=== PATIENT | female | born 1955 | race Caucasian/White ===

== ENCOUNTER 2016-09-05 23:43 | Inpatient (IN) | payer MEDICARE, OTHER ==
[2016-09-06 00:14] LABS: Basophils % (A) 0 %; CH 29.9; CHCM 33.7; Eosinophils % (A) 0 %; HCT 36.2 % (34.0-46.0); HDW 2.16; HGB 12.3 gm/dL (11.4-16.0); Luc % (Auto) 2; Lymphocytes # (A) 0.4 k/uL (1.0-4.8); Lymphocytes % (A) 3 %; MCH 30.3 pg (25.0-35.0); Mean Platelet Volume 6.8; Monocytes # (A) 0.6 k/uL (0-1.0); Monocytes % (A) 5 %; Neutrophils % (A) 89 %; RBC 4.07 m/uL (3.80-5.40); RDW 13.3 % (11.5-15.5); WBC 12.4 k/uL (3.8-10.6); WBC (Perox) 12.79
[2016-09-06 00:23] LABS: Anion Gap 10 mmol/L; Blood Urea Nitrogen 14 mg/dL (7-17); Carbon Dioxide 23 mmol/L (22-30); Chloride 99 mmol/L (98-107); Glucose 145 mg/dL (74-99); Non-African American GFR(MDRD) 57 (>60 ml/min/1.73 sqM); Potassium 4.2 mmol/L (3.5-5.1); Sodium 132 mmol/L (137-145)
[2016-09-06] MEDS ORDERED: ACETAMINOPHEN IV (For NPO) 1,000 MG in EMPTY BAG 1 BAG IVPB STA (00:27)
[2016-09-06] MEDS ORDERED: SODIUM CHLORIDE 0.9% 1,000 ML IV STA (00:28)
[2016-09-06] MEDS ORDERED: KETOROLAC 30 MG/ML 1 ML VIAL IVP STA (00:29)
[2016-09-06 00:32] LABS: ALT 43 U/L (9-52); AST 45 U/L (14-36); Alkaline Phosphatase 103 U/L (38-126); Total Bilirubin 0.5 mg/dL (0.2-1.3); Total Protein 6.1 g/dL (6.3-8.2)
[2016-09-06 00:41] LABS: INR 1.1 (<1.1); Prothrombin Time 11.2 sec (9.0-12.0)
[2016-09-06 00:51] LABS: Partial Thromboplastin Time 21.5 sec (22.0-30.0)
[2016-09-06 01:04] LABS: Glucose,Whole Blood 149 mg/dL (75-99)
--- NOTE | 2016-09-06 01:09 | ED ---
Seizure HPI - General Chief Complaint: Seizure Stated Complaint: Seizure Time Seen by Provider: 09/05/16 23:45 Source: EMS, old records reviewed Mode of arrival: EMS Limitations: altered mental status, physical limitation - History of Present Illness Initial Comments: Patient's 61-year-old woman brought here by EMS to be evaluated after she had a seizure at her residence. The patient is not able to give any history, and at this point history is from the caregiver. The patient had what sounds like a tonic-clonic seizure. She was also seen at the [facility] earlier today for another seizure. Patient reportedly diagnosed with urinary tract infection at that time. MD Complaint: seizure -: minutes(s) Description of Episode: loss of consciousness, tonic-clonic movement -: second(s) Witnessed: yes - by bystander Seizure History: known seizure disorder Place: home Possible Precipitating Event: none Associated Symptoms: denies other symptoms - Related Data Home Medications Medication Instructions Recorded Confirmed Acetaminophen [Tylenol] 2 tab PO Q6H 02/13/14 02/13/14 Aspirin 325 mg PO DAILY 02/13/14 02/13/14 Benazepril [Lotensin] 10 mg PO DAILY 02/13/14 02/13/14 Chlorhexidine Gluconate [Peridex] 15 ml PO HS 02/13/14 02/13/14 Clotamazole 1 applicate TOPICAL 02/13/14 02/13/14 Diazepam [Diastat] 1 each RECTAL DIRECTED PRN 02/13/14 02/13/14 Digoxin [Lanoxin] 250 mcg PO DAILY 02/13/14 02/13/14 Fludrocortisone [Florinef] 0.1 mg PO DAILY 02/13/14 02/13/14 Folic Acid 1 mg PO DAILY 02/13/14 02/13/14 LORazepam [Ativan] 2 tab PO DIRECTED PRN 02/13/14 02/13/14 Lacosamide [Vimpat] 200 mg PO BID 02/13/14 02/13/14 Meclizine [Antivert] 12.5 mg PO BID 02/13/14 02/13/14 Melatonin 3 mg PO HS 02/13/14 02/13/14 Multivitamins, Thera [Multivitamin] 1 each PO DAILY 02/13/14 02/13/14 OLANZapine [ZyPREXA] 5 mg PO HS 02/13/14 02/13/14 OXcarbazepine [Trileptal] 300 mg PO BID 02/13/14 02/13/14 OXcarbazepine [Trileptal] 600 mg PO HS 02/13/14 02/13/14 Omeprazole [PriLOSEC] 20 mg PO AC-BRKFST 02/13/14 02/13/14 Polyethylene Glycol 3350 [Miralax] 17 gm PO DAILY 02/13/14 02/13/14 Sertraline [Zoloft] 150 mg PO DAILY 02/13/14 02/13/14 Vaseline 1 applicate TOPICAL HS 02/13/14 02/13/14 Verapamil HCl [Verapamil ER] 240 mg PO DAILY 02/13/14 02/13/14 Ziprasidone [Geodon] 80 mg PO BID 02/13/14 02/13/14 lamoTRIgine [LaMICtal] 100 mg PO DAILY 02/13/14 02/13/14 lamoTRIgine [LaMICtal] 200 mg PO BID 02/13/14 02/13/14 Allergies Allergy/AdvReac Type Severity Reaction Status Date / Time No Known Allergies Allergy Verified 02/13/14 03:36 Review of Systems ROS Statement: Those systems with pertinent positive or pertinent negative responses have been documented in the HPI. ROS Other: All systems not noted in ROS Statement are negative. Limitations: ROS unobtainable due to patients medical condition Past Medical History Past Medical History: Seizure Disorder Additional Past Medical History / Comment(s): Unable to obtain hx from pt. History of Any Multi-Drug Resistant Organisms: None Reported Past Surgical History: No Surgical Hx Reported Past Psychological History: Unable to Obtain Smoking Status: Never smoker Past Alcohol Use History: None Reported Past Drug Use History: None Reported General Exam Limitations: altered mental status, physical limitation General appearance: alert, in no apparent distress Head exam: Present: atraumatic, normocephalic Eye exam: Present: normal appearance, PERRL, EOMI. Absent: scleral icterus, conjunctival injection, nystagmus ENT exam: Present: normal oropharynx Neck exam: Present: normal inspection. Absent: tenderness, meningismus Respiratory exam: Present: normal lung sounds bilaterally. Absent: respiratory distress, wheezes, rales, rhonchi, stridor Cardiovascular Exam: Present: normal rhythm, tachycardia, normal heart sounds. Absent: systolic murmur, diastolic murmur, rubs, gallop GI/Abdominal exam: Present: soft. Absent: distended, tenderness, guarding, rebound Extremities exam: Present: normal inspection, normal capillary refill. Absent: pedal edema, calf tenderness Neurological exam: Present: alert, other (Patient is following simple one step commands, without any evident focalizing deficits. She does appear postictal when not able to fully comply with the neurologic exam.) Skin exam: Present: warm, dry, intact, normal color. Absent: rash Course Vital Signs 09/05/16 09/06/16 23:45 01:24 Temperature 104 F H 99.0 F Pulse Rate 111 H 99 Respiratory 20 24 Rate Blood Pressure 147/71 120/58 O2 Sat by Pulse 96 96 Oximetry Medical Decision Making - Lab Data Result diagrams: 09/05/16 23:45 09/05/16 23:45 Lab Results 09/05/16 09/05/16 09/05/16 Range/Units 23:45 23:45 23:45 WBC 12.4 H (3.8-10.6) k/uL RBC 4.07 (3.80-5.40) m/uL Hgb 12.3 (11.4-16.0) gm/dL Hct 36.2 (34.0-46.0) % MCV 89.0 (80.0-100.0) fL MCH 30.3 (25.0-35.0) pg MCHC 34.0 (31.0-37.0) g/dL RDW 13.3 (11.5-15.5) % Plt Count 178 (150-450) k/uL Neutrophils % 89 % Lymphocytes % 3 % Monocytes % 5 % Eosinophils % 0 % Basophils % 0 % Neutrophils # 11.0 H (1.3-7.7) k/uL Lymphocytes # 0.4 L (1.0-4.8) k/uL Monocytes # 0.6 (0-1.0) k/uL Eosinophils # 0.0 (0-0.7) k/uL Basophils # 0.0 (0-0.2) k/uL PT (9.0-12.0) sec INR (<1.1) APTT (22.0-30.0) sec Sodium 132 L (137-145) mmol/L Potassium 4.2 (3.5-5.1) mmol/L Chloride 99 (98-107) mmol/L Carbon Dioxide 23 (22-30) mmol/L Anion Gap 10 mmol/L BUN 14 (7-17) mg/dL Creatinine 1.00 (0.52-1.04) mg/dL Est GFR (MDRD) Af Amer >60 (>60 ml/min/1.73 sqM) Est GFR (MDRD) Non-Af 57 (>60 ml/min/1.73 sqM) Glucose 145 H (74-99) mg/dL POC Glucose (mg/dL) (75-99) mg/dL POC Glu Automatic Oven Operator ID Plasma Lactic Acid [place]cad[place] 1.3 (0.7-2.0) mmol/L Calcium 9.0 (8.4-10.2) mg/dL Total Bilirubin 0.5 (0.2-1.3) mg/dL AST 45 H (14-36) U/L ALT 43 (9-52) U/L Alkaline Phosphatase 103 (38-126) U/L Troponin I (0.000-0.034) ng/mL Total Protein 6.1 L (6.3-8.2) g/dL Albumin 3.3 L (3.5-5.0) g/dL Urine Color Urine Appearance (Clear) Urine pH (5.0-8.0) Ur Specific [place] (1.001-1.035) Urine Protein (Negative) Urine Glucose (UA) (Negative) Urine Ketones (Negative) Urine Blood (Negative) Urine Nitrate (Negative) Urine Bilirubin (Negative) Urine Urobilinogen (<2.0) mg/dL Ur Leukocyte Esterase (Negative) Urine RBC (0-5) /hpf Urine WBC (0-5) /hpf Urine Bacteria (None) /hpf Urine Mucus (None) /hpf Influenza Type A RNA (Not Detectd) Influenza Type B (PCR) (Not Detectd) 09/05/16 09/05/16 09/05/16 Range/Units 23:45 23:45 23:45 WBC (3.8-10.6) k/uL RBC (3.80-5.40) m/uL Hgb (11.4-16.0) gm/dL Hct (34.0-46.0) % MCV (80.0-100.0) fL MCH (25.0-35.0) pg MCHC (31.0-37.0) g/dL RDW (11.5-15.5) % Plt Count (150-450) k/uL Neutrophils % % Lymphocytes % % Monocytes % % Eosinophils % % Basophils % % Neutrophils # (1.3-7.7) k/uL Lymphocytes # (1.0-4.8) k/uL Monocytes # (0-1.0) k/uL Eosinophils # (0-0.7) k/uL Basophils # (0-0.2) k/uL PT 11.2 (9.0-12.0) sec INR 1.1 (<1.1) APTT 21.5 L (22.0-30.0) sec Sodium (137-145) mmol/L Potassium (3.5-5.1) mmol/L Chloride (98-107) mmol/L Carbon Dioxide (22-30) mmol/L Anion Gap mmol/L BUN (7-17) mg/dL Creatinine (0.52-1.04) mg/dL Est GFR (MDRD) Af Amer (>60 ml/min/1.73 sqM) Est GFR (MDRD) Non-Af (>60 ml/min/1.73 sqM) Glucose (74-99) mg/dL POC Glucose (mg/dL) (75-99) mg/dL POC Glu Automatic Oven Operator ID Plasma Lactic Acid [place]cad[place] (0.7-2.0) mmol/L Calcium (8.4-10.2) mg/dL Total Bilirubin (0.2-1.3) mg/dL AST (14-36) U/L ALT (9-52) U/L Alkaline Phosphatase (38-126) U/L Troponin I 0.027 (0.000-0.034) ng/mL Total Protein (6.3-8.2) g/dL Albumin (3.5-5.0) g/dL Urine Color Urine Appearance (Clear) Urine pH (5.0-8.0) Ur Specific [place] (1.001-1.035) Urine Protein (Negative) Urine Glucose (UA) (Negative) Urine Ketones (Negative) Urine Blood (Negative) Urine Nitrate (Negative) Urine Bilirubin (Negative) Urine Urobilinogen (<2.0) mg/dL Ur Leukocyte Esterase (Negative) Urine RBC (0-5) /hpf Urine WBC (0-5) /hpf Urine Bacteria (None) /hpf Urine Mucus (None) /hpf Influenza Type A RNA Not Detected (Not Detectd) Influenza Type B (PCR) Not Detected (Not Detectd) 09/06/16 09/06/16 09/06/16 Range/Units 01:01 01:01 01:37 WBC (3.8-10.6) k/uL RBC (3.80-5.40) m/uL Hgb (11.4-16.0) gm/dL Hct (34.0-46.0) % MCV (80.0-100.0) fL MCH (25.0-35.0) pg MCHC (31.0-37.0) g/dL RDW (11.5-15.5) % Plt Count (150-450) k/uL Neutrophils % % Lymphocytes % % Monocytes % % Eosinophils % % Basophils % % Neutrophils # (1.3-7.7) k/uL Lymphocytes # (1.0-4.8) k/uL Monocytes # (0-1.0) k/uL Eosinophils # (0-0.7) k/uL Basophils # (0-0.2) k/uL PT (9.0-12.0) sec INR (<1.1) APTT (22.0-30.0) sec Sodium (137-145) mmol/L Potassium (3.5-5.1) mmol/L Chloride (98-107) mmol/L Carbon Dioxide (22-30) mmol/L Anion Gap mmol/L BUN (7-17) mg/dL Creatinine (0.52-1.04) mg/dL Est GFR (MDRD) Af Amer (>60 ml/min/1.73 sqM) Est GFR (MDRD) Non-Af (>60 ml/min/1.73 sqM) Glucose (74-99) mg/dL POC Glucose (mg/dL) 149 H 149 H (75-99) mg/dL POC Glu Automatic Oven Operator ID Dunsmore, Cecilia Dunsmore, Cecilia Plasma Lactic Acid [place] (0.7-2.0) mmol/L Calcium (8.4-10.2) mg/dL Total Bilirubin (0.2-1.3) mg/dL AST (14-36) U/L ALT (9-52) U/L Alkaline Phosphatase (38-126) U/L Troponin I (0.000-0.034) ng/mL Total Protein (6.3-8.2) g/dL Albumin (3.5-5.0) g/dL Urine Color Yellow Urine Appearance Clear (Clear) Urine pH 6.5 (5.0-8.0) Ur Specific [place] 1.006 (1.001-1.035) Urine Protein Trace H (Negative) Urine Glucose (UA) Negative (Negative) Urine Ketones Negative (Negative) Urine Blood Trace H (Negative) Urine Nitrate Negative (Negative) Urine Bilirubin Negative (Negative) Urine Urobilinogen <2.0 (<2.0) mg/dL Ur Leukocyte Esterase Moderate H (Negative) Urine RBC 4 (0-5) /hpf Urine WBC 33 H (0-5) /hpf Urine Bacteria Rare H (None) /hpf Urine Mucus Rare H (None) /hpf Influenza Type A RNA (Not Detectd) Influenza Type B (PCR) (Not Detectd) - EKG Data -: EKG Interpreted by Ar EKG shows normal: sinus rhythm, axis (Normal), intervals (Prolonged QTC at 6 or 14 ms.) Rate: tachycardia (Rate 111 bpm) Interpretation: nonspecific ST-T wave changes Disposition Clinical Impression: Generalized seizure, Pneumonia Disposition: ADMITTED IP TO THIS HOSP Condition: Fair
--- NOTE | 2016-09-06 01:25 | XR ---
EXAM: XR Chest, 1 View. CLINICAL HISTORY: Reason: Pain TECHNIQUE: Frontal view of the chest. COMPARISON: No relevant prior studies available. FINDINGS: Lungs: Left retrocardiac opacity obscuring left hemidiaphragm suggesting left lower lobe infiltrate or atelectasis. Pleural space: No evidence of pleural effusion. No pneumothorax. Heart: Heart size and mediastinal structures are within normal limits. Mediastinum: Unremarkable. Bones/joints: Unremarkable. IMPRESSION: Left lower lobe infiltrate or partial atelectasis. Findings raise possibility of pneumonia. Clinical correlation recommended.
[2016-09-06] MEDS ORDERED: LEVOFLOXACIN 750MG-D5W PMX 750 MG in DEXTROSE/WATER 1 150ML.BAG IVPB STA (01:29)
[2016-09-06 02:08] LABS: Appearance,Urine Clear (Clear); Bacteria,Urine Rare /hpf; Bilirubin,Urine Negative (Negative); Glucose,Urine (UA) Negative (Negative); Ketones,Urine Negative (Negative); Leukocyte Esterase,Urine Moderate (Negative); Mucus,Urine Rare /hpf; Nitrite,Urine Negative (Negative); PH, Urine 6.5 (5.0-8.0); Particle Count 1882; Protein,Urine Trace (Negative); RBC,Urine 4 /hpf (0-5); Specific Gravity,Urine 1.006 (1.001-1.035); UA Billing (MACRO vs. MICRO) MICRO; Urobilinogen,Urine <2.0 mg/dL (<2.0); WBC,Urine 33 /hpf (0-5)
[2016-09-06] MEDS ORDERED: PNEUMONIA PROTOCOL UTILIZED 1 EACH MISC PO PRN (02:46)
[2016-09-06] MEDS ORDERED: LORazepam 0.5 MG TAB PO PRN (02:47)
[2016-09-06] MEDS ORDERED: LORazepam 2 MG/ML SYRINGE IV PRN (02:49)
[2016-09-06] MEDS ORDERED: ACETAMINOPHEN TAB 325 MG TAB PO PRN (03:00)
[2016-09-06] MEDS: SODIUM CHLORIDE 0.9% 1,000 ML IV SCH (04:31)
[2016-09-06 04:42] VITALS: BMI 28.3
--- NOTE | 2016-09-06 08:31 | HP ---
DATE OF ADMISSION: Mrs. Pride is a 61-year-old female patient of Dr. Milian for whom I am covering. Apparently, she suffers from seizure disorder and element of mental deficiency. Apparently cared for at home. She presented earlier today to [facility] with a seizure. Apparently, she gets seizures about once a month and are grand mall. There is a possible urinary tract infection associated with it at that time, based on her work-up and patient was sent back to home to her residence and developed another seizure and was brought back into the emergency room. At that time she had a fever and has been admitted for further evaluation and treatment. Patient's past medical history is positive for the seizure disorder and history of some mental retardation. There is a history of a past episode of atrial fib/flutter. There is also history of hyponatremia and hypertension. Apparently, no history of diabetes or other lung disease. No history of any kidney disease, rheumatic fever, myocardial infarction, CVA. Apparently there is no history of any major surgeries. REVIEW OF SYSTEMS: Apparently otherwise, he has been negative except for the episodes of seizures, one [place] and apparently she did fall at that time. A CAT scan was done at [facility] that reported as negative, but otherwise not aware of any other symptoms prior to the seizures. Medications, we have had some problems according to a sister that knows her. She had given us a list of medications at home. Apparently, she is on: 1. Lorazepam 0.5 mg p.r.n. 2. Melatonin 3 mg at bedtime for sleep. 3. Trileptal 300 mg twice a day and also 2 of the 300 mg tablets which will equal 600 mg at night. 4. GlycoLax p.r.n. 5. Zoloft, apparently she is on 100 mg tablets 1-1/2 daily. 6. Verapamil 240 mg 24-hour tablet once a day. 7. Theragran-M vitamins. 8. She is also on Geodon 800 mg twice a day. There is some history also of schizoaffective disorder. 9. She is also on Tylenol 325 p.r.n. 10. Aspirin 325 mg daily. 11. Lanoxin 0.25 daily. 12. Lamictal, apparently she takes 1/2 of a 200 mg tablet at 7 in the morning and then another 200 mg tablet twice a day for a total of 500 mg daily. Once again, these are prior to her seizures. Apparently, she has been taking her medication. No known allergies. Family history reveals that her father history of lymphoma and atherosclerotic heart disease in his 80s, mother in her 90s of atherosclerotic heart disease. The patient has a sister, 60 years old in good health and her brother also in good health, apparently. On physical examination, this morning. She is arousable. Apparently according to the nurses answering questions with her normal baseline mental status, she does not appear to be in any acute distress. She is lying flat in bed. No respiratory distress. Her vital signs as mentioned on presentation her temperature, they say was 104 axillary and pulse 114. Presently her temperature is down to 98.6 with a pulse of 78, respirations of 20, nonlabored, blood pressure 101/58 and she is 98% saturated on nasal cannula. Her neck is supple. Extraocular movements appear to be intact. No adenopathy, thyromegaly, or bruits detected in the neck. Breasts and pelvic exam has been deferred. Lungs were clear to auscultation. Heart is regular without definitive murmurs. Abdomen is mildly obese but soft, nontender. No organomegaly detected. Extremities revealed no edema. Neurologically, as mentioned she is aroused, appears to be somewhat fatigued, but overall alert to her baseline. Cranial nerves appear to be intact and she does move all extremities. 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 No focal weakness noted. Laboratory testing revealed a white count of 12.4, hemoglobin 12.3 and a platelet count of 178, INR 1.1, sodium 132 with a potassium 4.2, chloride 92, CO2 content of 23. Her GFR is 57 with a BUN of 14, and a creatinine of 1.0. Her glucose on presentation was 145. AST was slightly elevated at 45, but ALT was normal. Alk phos normal at 103, and bili normal at 0.5. Her albumin slightly low at 3.3, troponin normal at 0.027. Urine revealed moderate leukocyte esterase with 33 white cells. Influenza A and B were negative. Her chest x-ray was read as a possibility of a left lower lobe infiltrate or partial atelectasis but no definite pneumonia is seen. Her EKG revealed an accelerated junctional rhythm with some ST-T wave abnormalities. No definite ischemic changes noted. Overall impression is this lady with a history of seizures has recurrent uncontrolled episodes of seizures yesterday, a grand mal in type, associated with a temperature and what appears to be a urinary tract infection. I believe less likely a pneumonic process. Apparently, there is underlying history of mental retardation and psychosis. There is also a history of paroxysmal atrial fib/flutter but not on anticoagulation, apparently due to seizure disorder in the past and apparent history of hypertension. At this point, plans are to monitor the patient, seizure precautions. Have resumed her Lamictal at 200 twice a day and her Trileptal at her home dosage. Will continue to treat her urinary tract infection pending cultures that were also done at [facility] earlier and repeated here. I do not know if she received any antibiotics in between. Will also get a Neurology consult. She did have a CAT scan done at [facility], which did not show any evidence of acute bleed or mass effect. Prognosis guarded. MTDD
[2016-09-06] MEDS ORDERED: MECLIZINE 12.5 MG TAB PO SCH (09:00)
[2016-09-06] MEDS ORDERED: OXcarbazepine 300 MG TAB PO SCH (09:00)
[2016-09-06] MEDS ORDERED: ZIPRASIDONE 80 MG CAP PO SCH (09:00)
[2016-09-06] MEDS ORDERED: lamoTRIgine 100 MG TAB PO SCH (09:00)
[2016-09-06] MEDS ORDERED: LACOSAMIDE 50 MG TABLET PO SCH (09:00)
[2016-09-06] MEDS: ZIPRASIDONE 80 MG CAP PO SCH ×2 (10:28→20:50)
[2016-09-06] MEDS: VERAPAMIL SR 240 MG TABLET.ER PO SCH (10:28)
[2016-09-06] MEDS: POLYETHYLENE GLYCOL 3350 17 GM POWD.PACK PO SCH (10:28)
[2016-09-06] MEDS: PANTOPRAZOLE 40 MG TABLET PO SCH (10:28)
[2016-09-06] MEDS: OXcarbazepine 300 MG TAB PO SCH ×2 (10:28→20:50)
[2016-09-06] MEDS: DIGOXIN 250 MCG TAB PO SCH (10:29)
[2016-09-06] MEDS: ASPIRIN 325 MG TAB PO SCH (10:29)
[2016-09-06] MEDS: SERTRALINE 100 MG TAB PO SCH (10:29)
[2016-09-06] MEDS: LISINOPRIL 10 MG TAB PO SCH (10:29)
[2016-09-06] MEDS: MULTIVITAMINS, THERA 1 EACH TAB PO SCH (10:46)
[2016-09-06] MEDS ORDERED: FOLIC ACID 1 MG TAB PO SCH (12:00)
[2016-09-06] MEDS ORDERED: NON-FORMULARY DRUG (Lamotrigine [Lamictal] 200 MG) PO SCH (14:30)
[2016-09-06] MEDS: lamoTRIgine 100 MG TAB PO SCH ×2 (14:35→20:50)
--- NOTE | 2016-09-06 18:29 | P.CNNES ---
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 She is on Trileptal lorazepam and Lamictal for seizure prophylaxis. She is admitted to the hospital because she had a seizure the patient has been diagnosed also with a UTI he was seen earlier at [facility] as well for seizure and diagnosed with UTI. Patient normally has about 3 partial seizures a month. Apparently patient appears comfortable and has no specific complaints. She denies any headache or dizziness. this seizure currently was a generalized grand mal seizure. Review of Systems ROS unobtainable: due to mental status Past Medical History Past Medical History: Atrial Fibrillation, Hypertension, Pneumonia, Seizure Disorder Additional Past Medical History / Comment(s): Vertigo History of Any Multi-Drug Resistant Organisms: None Reported Past Surgical History: No Surgical Hx Reported Past Psychological History: Schizoaffective Disorder Additional Psychological History / Comment(s): OCD, auditory hallucinations, needs reassurance that she is ok. Smoking Status: Never smoker Past Alcohol Use History: None Reported Past Drug Use History: None Reported - Past Family History Father Family Medical History: Cancer Mother Family Medical History: AFIB, Congestive Heart Failure (CHF) Medications and Allergies Home Medications Medication Instructions Recorded Confirmed Type Acetaminophen [Tylenol] 650 mg PO Q6H PRN 02/13/14 09/06/16 History Aspirin 325 mg PO DAILY 02/13/14 09/06/16 History LORazepam [Ativan] 0.5 mg PO BID PRN 02/13/14 09/06/16 History Melatonin 3 mg PO HS 02/13/14 09/06/16 History Multivitamins, Thera [Multivitamin] 1 tab PO DAILY 02/13/14 09/06/16 History OXcarbazepine [Trileptal] 300 mg PO DAILY 02/13/14 09/06/16 History OXcarbazepine [Trileptal] 600 mg PO HS 02/13/14 09/06/16 History Polyethylene Glycol 3350 [Miralax] 17 gm PO DAILY PRN 02/13/14 09/06/16 History Sertraline [Zoloft] 150 mg PO DAILY 02/13/14 09/06/16 History Verapamil HCl [Verapamil ER] 240 mg PO DAILY 08/13/14 03/06/17 History Ziprasidone [Geodon] 80 mg PO BID 02/13/14 09/06/16 History lamoTRIgine [LaMICtal] 100 mg PO DAILY@0800 02/13/14 09/06/16 History lamoTRIgine [LaMICtal] 200 mg PO BID@1430,2030 02/13/14 09/06/16 History Digoxin [Lanoxin] 125 mcg PO BID 09/06/16 09/06/16 History Allergies Allergy/AdvReac Type Severity Reaction Status Date / Time No Known Allergies Allergy Verified 02/13/14 03:36 Physical Examination - Vital Signs Vital Signs: Vital Signs Temp Pulse Pulse Resp BP BP Pulse Ox 09/06/16 15:00 97.7 F 80 17 92/54 96 09/06/16 07:00 97.6 F 77 18 109/67 98 09/06/16 04:45 78 20 09/06/16 04:15 98.6 F 78 20 101/58 98 09/06/16 03:03 88 22 103/64 97 Intake and Output 09/06/16 09/06/16 09/06/16 06:59 14:59 22:59 Output Total 1 Balance -1 Output: Urine 1 Other: # Voids 1 1 2 Weight 75 kg - Constitutional General appearance: average body habitus - EENT EENT: PERRL - Respiratory Respiratory: lungs clear - Cardiovascular Cardiovascular: regular rate - Integumentary Integumentary: normal - Neurologic She is awake alert and has moderate MR Cranial nerve examination: PERRL, EOMI, VFF, face symmetric, tongue midline Detailed motor examination: grossly full strength in all extremities Results - Laboratory Findings CBC and BMP: 09/05/16 23:45 09/05/16 23:45 Assessment and Plan (1) Generalized seizure Status: Acute Code(s): R56.9 - UNSPECIFIED CONVULSIONS Plan: Patient is a 61-year-old woman with moderate MR and epilepsy who presents to the hospital with recent urosepsis and breakthrough seizures. Recommend trough anticonvulsant levels in a.m. it continue to treat underlying sepsis. We'll check trough Trileptal and Lamictal levels in a.m. apparently patient did have a CAT scan of the brain done at [facility] which was reported negative
[2016-09-06] MEDS: MELATONIN 3 MG TABLET PO SCH (20:50)
[2016-09-06] MEDS ORDERED: OLANZapine 5 MG TAB PO SCH (21:00)
[2016-09-06] MEDS ORDERED: OXCARBAZEPINE 600 MG PO SCH (21:00)
[2016-09-06] MEDS ORDERED: LEVOFLOXACIN 750 MG TAB PO SCH (21:00)
[2016-09-07] MEDS: SODIUM CHLORIDE 0.9% 1,000 ML IV SCH (05:13)
--- NOTE | 2016-09-07 07:23 | P.PN ---
Progress Note - Text The patient is a 61-year-old female who is a patient of Dr. Milian for whom I am covering. The patient had 2 seizures over the weekend and was brought here to the emergency room apparently in a post ictal state. She also has pyuria consistent with a urinary tract infection and presently a blood culture that is positive for gram negatives although final identification is pending at this time. Patient has been seen by neurology. Patient clinically seems to be doing well this morning. She has not had any further seizure activity. She appears to be alert and oriented. There is some history of mental retardation and apparently she lives in a home but I do not know her overall baseline but this morning she is appears to be doing well. Patient denies any headache or pain. She denies any nausea or vomiting. Denies any cough or chills. Vital signs reveal temperature of 99.3 with a pulse of 87 respirations 19. Blood pressure 107/61 and she is 93% saturated on room air. Head and neck exam unremarkable. Lungs and heart clear and regular. No murmurs. Abdomen is soft and nontender. No edema. She does appear to be alert and oriented. In no acute distress. No cranial nerve deficits. Moving all extremities without weakness. Microbiology: Urine culture is pending. Blood Gram stain and culture from September 05 apparently showing gram-negative's. Impressions and plans: Neurology note regarded. Levels of her antiseizure medications per neurology. Continue with Levaquin pending cultures and will repeat cultures presently along with other labs this morning. Further recommendations pending results of above. Consult infectious disease.
[2016-09-07 08:19] LABS: Aty Lym Flag Moderate; Basophils # (A) 0.1 k/uL (0-0.2); Basophils % (A) 1 %; CH 29.2; Eosinophils # (A) 0.1 k/uL (0-0.7); Eosinophils % (A) 1 %; HCT 36.7 % (34.0-46.0); HDW 2.23; Luc # (Auto) 0.87; Luc % (Auto) 10; Lymphocytes # (A) 1.2 k/uL (1.0-4.8); Lymphocytes % (A) 13 %; MCHC 32.8 g/dL (31.0-37.0); MCV 91.7 fL (80.0-100.0); Mean Platelet Volume 7.5; Monocytes # (A) 0.6 k/uL (0-1.0); Monocytes % (A) 6 %; Neutrophils # (A) 6.3 k/uL (1.3-7.7); Neutrophils % (A) 69 %; RDW 13.2 % (11.5-15.5); WBC 9.1 k/uL (3.8-10.6); WBC (Perox) 9.37
[2016-09-07 09:00] LABS: ALT 38 U/L (9-52); AST 34 U/L (14-36); Alkaline Phosphatase 104 U/L (38-126); Anion Gap 11 mmol/L; Blood Urea Nitrogen 15 mg/dL (7-17); Calcium 9.4 mg/dL (8.4-10.2); Carbon Dioxide 23 mmol/L (22-30); Chloride 107 mmol/L (98-107); Glucose 96 mg/dL (74-99); Non-African American GFR(MDRD) 55 (>60 ml/min/1.73 sqM); Potassium 4.7 mmol/L (3.5-5.1); Sodium 141 mmol/L (137-145); Total Bilirubin 0.3 mg/dL (0.2-1.3); Total Protein 5.8 g/dL (6.3-8.2)
[2016-09-07] MEDS ORDERED: LEVOFLOXACIN 500 MG TAB PO SCH (09:00)
--- NOTE | 2016-09-07 09:01 | P.CONS ---
History of Present Illness - Reason for Consult Consult date: 09/07/16 Gram-negative sepsis - History of Present Illness This is a 61-year-old female with past medical history significant for moderate intellectual disability, paroxysmal atrial fibrillation, hypertension, seizure disorder. [place] and had a seizure and staff thought she hit her head. She was transported to [facility] and underwent a CAT scan of the head which was negative and of the C-spine which did show degenerative changes. She was found to have a urinary tract infection with urinalysis showing WBC greater than 25, bacteria greater than 30, blood 1+. Patient was discharged on Macrobid but this was not filled as patient had another seizure and then presented to [facility] emergency center. She was found to have a temperature of 104.0, tachycardia, hypotension, leukocytosis at 12.4. GFR was 57, albumin 3.3, AST 45 , influenza testing a and B were negative. Urinalysis showed protein trace, blood trace, leukoesterase moderate, WBC 33 and bacteria rare. Two blood cultures drawn at the same time are positive for gram-negative rods. Urine culture is in progress. Patient was given 1 dose of ceftriaxone and admitted to the [facility] floor and continued on Levaquin. Patient is able to answer some questions and appears to be answering appropriately. Her main caregiver is also at the bedside and history is being confirmed with her. Patient does state that she has pain when she urinates but unable to determine how long this has been going on. Plan is for patient to return to her own apartment where she has 24-hour care. She does have a cruise to [place] scheduled for September 20 with her sister/guardian and other family members. Her nurse also relates that last evening patient was feeling an aura as she normally would before a seizure. Her nurse gave her oral Ativan and patient did not have seizure activity at that time. Review of Systems All systems: negative Constitutional: Reports fever, Denies chills Eyes: right as per HPI, denies blurred vision, denies pain Ears, nose, mouth and throat: Denies dental pain, Denies dysphagia, Denies headache, Denies mouth pain, Denies sore throat Cardiovascular: Denies chest pain, Denies edema, Denies leg edema, Denies shortness of breath Respiratory: Denies cough, Denies cough with sputum, Denies dyspnea, Denies excessive sputum, Denies hemoptysis, Denies home oxygen Gastrointestinal: Denies abdominal pain, Denies diarrhea, Denies nausea, Denies vomiting Genitourinary: Reports dysuria, Denies hematuria Musculoskeletal: Denies myalgias Integumentary: Denies pruritus, Denies rash Neurological: Denies numbness, Denies weakness Psychiatric: Denies anxiety, Denies depression Endocrine: Denies fatigue, Denies weight change Past Medical History Past Medical History: Atrial Fibrillation, Hypertension, Pneumonia, Seizure Disorder Additional Past Medical History / Comment(s): Vertigo, paroxysmal atrial fibrillation, moderate intellectual disability History of Any Multi-Drug Resistant Organisms: None Reported Past Surgical History: No Surgical Hx Reported Past Psychological History: Schizoaffective Disorder Additional Psychological History / Comment(s): OCD, auditory hallucinations, needs reassurance that she is ok. Smoking Status: Never smoker Past Alcohol Use History: None Reported Additional Past Alcohol Use History / Comment(s): Patient is a lifelong nonsmoker, no illicit drug use, alcohol use. Patient lives in her own apartment with a roommate. They have 24-hour care. There are no pets in the home. No recent travel. Past Drug Use History: None Reported - Past Family History Father Family Medical History: Cancer Mother Family Medical History: AFIB, Congestive Heart Failure (CHF) Medications and Allergies Home Medications Medication Instructions Recorded Confirmed Type Acetaminophen [Tylenol] 650 mg PO Q6H PRN 02/13/14 09/06/16 History LORazepam [Ativan] 0.5 mg PO BID PRN 02/13/14 09/06/16 History Multivitamins, Thera [Multivitamin] 1 tab PO DAILY 02/13/14 09/06/16 History OXcarbazepine [Trileptal] 300 mg PO DAILY 02/13/14 09/06/16 History OXcarbazepine [Trileptal] 600 mg PO HS 02/13/14 09/06/16 History Polyethylene Glycol 3350 [Miralax] 17 gm PO DAILY PRN 02/13/14 09/06/16 History RX: Aspirin 325 mg PO DAILY 02/13/14 09/06/16 History RX: Melatonin 3 mg PO HS 02/13/14 09/06/16 History Sertraline [Zoloft] 150 mg PO DAILY 02/13/14 09/06/16 History Verapamil HCl [Verapamil ER] 240 mg PO DAILY 02/13/14 09/06/16 History Ziprasidone [Geodon] 80 mg PO BID 02/13/14 09/06/16 History lamoTRIgine [LaMICtal] 100 mg PO DAILY@0800 02/13/14 09/06/16 History lamoTRIgine [LaMICtal] 200 mg PO BID@1430,2030 02/13/14 09/06/16 History Digoxin [Lanoxin] 125 mcg PO BID 09/06/16 09/06/16 History Allergies Allergy/AdvReac Type Severity Reaction Status Date / Time No Known Allergies Allergy Verified 02/13/14 03:36 Physical Exam Vitals: Vital Signs Temp Pulse Resp BP BP Pulse Ox 09/07/16 07:00 98.2 F 77 20 113/57 95 09/06/16 22:55 99.3 F 87 19 107/61 93 L 09/06/16 15:00 97.7 F 80 17 92/54 96 Intake and Output 09/06/16 09/07/16 09/07/16 22:59 06:59 14:59 Intake Total 200 Balance 200 Intake: Oral 200 Other: # Voids 2 3 Gen: This is a 61-year-old female. She is in bed and appears to be in no acute distress. No respiratory distress is noted. HEENT: Head is atraumatic, normocephalic. Pupils equal, round. Sclerae is anicteric. Conjunctiva pink. Mucous membranes of the mouth are moist. No thrush noted. No tenderness, edema or masses noted to the scalp. NECK: Supple. No JVD. No lymphadenopathy. No thyromegaly. LUNGS: Clear to auscultation. No wheezes or rhonchi. No intercostal retractions. HEART: Regular rate and rhythm. No murmur. ABDOMEN: Soft. Bowel sounds are present. No masses. No tenderness. No suprapubic tenderness. EXTREMITIES: No pedal edema. No calf tenderness. Dorsalis pedis +2 bilaterally. Onychomycosis bilateral toes NEUROLOGICAL: Patient is awake, alert and oriented x2. Cranial nerves 2 through 12 are grossly intact. Results Results: Laboratory Results WBC 9.1 k/uL (3.8-10.6) 09/07/16 07:44 RBC 4.00 m/uL (3.80-5.40) 09/07/16 07:44 Hgb 12.0 gm/dL (11.4-16.0) 09/07/16 07:44 Hct 36.7 % (34.0-46.0) 09/07/16 07:44 MCV 91.7 fL (80.0-100.0) 09/07/16 07:44 MCH 30.0 pg (25.0-35.0) 09/07/16 07:44 MCHC 32.8 g/dL (31.0-37.0) 09/07/16 07:44 RDW 13.2 % (11.5-15.5) 09/07/16 07:44 Plt Count 182 k/uL (150-450) 09/07/16 07:44 Neutrophils % 69 % 09/07/16 07:44 Lymphocytes % 13 % 09/07/16 07:44 Monocytes % 6 % 09/07/16 07:44 Eosinophils % 1 % 09/07/16 07:44 Basophils % 1 % 09/07/16 07:44 Neutrophils # 6.3 k/uL (1.3-7.7) 09/07/16 07:44 Lymphocytes # 1.2 k/uL (1.0-4.8) 09/07/16 07:44 Monocytes # 0.6 k/uL (0-1.0) 09/07/16 07:44 Eosinophils # 0.1 k/uL (0-0.7) 09/07/16 07:44 Basophils # 0.1 k/uL (0-0.2) 09/07/16 07:44 PT 11.2 sec (9.0-12.0) 09/05/16 23:45 INR 1.1 (<1.1) 09/05/16 23:45 APTT 21.5 sec (22.0-30.0) L 09/05/16 23:45 Sodium 132 mmol/L (137-145) L 09/05/16 23:45 Potassium 4.2 mmol/L (3.5-5.1) 09/05/16 23:45 Chloride 99 mmol/L (98-107) 09/05/16 23:45 Carbon Dioxide 23 mmol/L (22-30) 09/05/16 23:45 Anion Gap 10 mmol/L 09/05/16 23:45 BUN 14 mg/dL (7-17) 09/05/16 23:45 Creatinine 1.00 mg/dL (0.52-1.04) 09/05/16 23:45 Est GFR (MDRD) Af Amer >60 (>60 ml/min/1.73 sqM) 09/05/16 23:45 Est GFR (MDRD) Non-Af 57 (>60 ml/min/1.73 sqM) 09/05/16 23:45 Glucose 145 mg/dL (74-99) H 09/05/16 23:45 POC Glucose (mg/dL) 149 mg/dL (75-99) H 09/06/16 01:01 POC Glu Weaving Instructor ID Cecilia Hernández 09/06/16 01:01 Plasma Lactic Acid Arcadio 1.3 mmol/L (0.7-2.0) 09/05/16 23:45 Calcium 9.0 mg/dL (8.4-10.2) 09/05/16 23:45 Total Bilirubin 0.5 mg/dL (0.2-1.3) 09/05/16 23:45 AST 45 U/L (14-36) H 09/05/16 23:45 ALT 43 U/L (9-52) 09/05/16 23:45 Alkaline Phosphatase 103 U/L (38-126) 09/05/16 23:45 Troponin I 0.027 ng/mL (0.000-0.034) 09/05/16 23:45 Total Protein 6.1 g/dL (6.3-8.2) L 09/05/16 23:45 Albumin 3.3 g/dL (3.5-5.0) L 09/05/16 23:45 Urine Color Yellow 09/06/16 01:37 Urine Appearance Clear (Clear) 09/06/16 01:37 Urine pH 6.5 (5.0-8.0) 09/06/16 01:37 Ur Specific [place] 1.006 (1.001-1.035) 09/06/16 01:37 Urine Protein Trace (Negative) H 09/06/16 01:37 Urine Glucose (UA) Negative (Negative) 09/06/16 01:37 Urine Ketones Negative (Negative) 09/06/16 01:37 Urine Blood Trace (Negative) H 09/06/16 01:37 Urine Nitrate Negative (Negative) 09/06/16 01:37 Urine Bilirubin Negative (Negative) 09/06/16 01:37 Urine Urobilinogen <2.0 mg/dL (<2.0) 09/06/16 01:37 Ur Leukocyte Esterase Moderate (Negative) H 09/06/16 01:37 Urine RBC 4 /hpf (0-5) 09/06/16 01:37 Urine WBC 33 /hpf (0-5) H 09/06/16 01:37 Urine Bacteria Rare /hpf (None) H 09/06/16 01:37 Urine Mucus Rare /hpf (None) H 09/06/16 01:37 Influenza Type A RNA Not Detected (Not Detectd) 09/05/16 23:45 Influenza Type B (PCR) Not Detected (Not Detectd) 09/05/16 23:45 CBC & Chem 7: 09/07/16 07:44 09/07/16 07:44 Assessment and Plan Plan: This is a 61-year-old female who has past medical history for seizure disorder and experienced [place] and was initially seen at [facility] where a CAT scan of the head and neck were negative. She was diagnosed with urinary tract infection and sent home on Macrobid which was not filled. She then presented to [facility] with a second seizure and has been admitted to the [facility] floor. She is currently on Levaquin which will be switched to ceftriaxone. Blood culture is showing gram-negative rods and repeat blood culture has been obtained this morning. Patient presented with gram-negative septicemia and bacteremia due to urinary source. Await further culture reports. Urine culture is in progress. Continue supportive care. Physical therapy will be added. Further recommendations as patient progresses. The above dictated assessment and findings were discussed with Dr. Mckeon. The impression and plan of care have been directed as dictated. Bobbi Curry nurse practitioner acting as scribe for Dr. Mckeon. Time with Patient: Greater than 30
[2016-09-07] MEDS: POLYETHYLENE GLYCOL 3350 17 GM POWD.PACK PO SCH (09:20)
[2016-09-07] MEDS: OXcarbazepine 300 MG TAB PO SCH ×2 (09:20→20:05)
[2016-09-07] MEDS: ZIPRASIDONE 80 MG CAP PO SCH ×2 (09:20→20:05)
[2016-09-07] MEDS: ASPIRIN 325 MG TAB PO SCH (09:20)
[2016-09-07] MEDS: VERAPAMIL SR 240 MG TABLET.ER PO SCH (09:20)
[2016-09-07] MEDS: SERTRALINE 100 MG TAB PO SCH (09:21)
[2016-09-07] MEDS: PANTOPRAZOLE 40 MG TABLET PO SCH (09:21)
[2016-09-07] MEDS: DIGOXIN 250 MCG TAB PO SCH (09:21)
[2016-09-07] MEDS: LISINOPRIL 10 MG TAB PO SCH (09:21)
[2016-09-07] MEDS: MULTIVITAMINS, THERA 1 EACH TAB PO SCH (09:22)
[2016-09-07] MEDS: lamoTRIgine 100 MG TAB PO SCH ×2 (14:38→20:05)
--- NOTE | 2016-09-07 20:01 | P.CON ---
Consult Note - . Consult date: 09/07/16 Assessment/Plan:: This is a 61-year-old female with past medical history significant for moderate intellectual disability, paroxysmal atrial fibrillation, hypertension, seizure disorder. [place] and had a seizure and staff thought she hit her head. She was transported to [facility] and underwent a CAT scan of the head which was negative and of the C-spine which did show degenerative changes. She was found to have a urinary tract infection with urinalysis showing WBC greater than 25, bacteria greater than 30, blood 1+. Patient was discharged on Macrobid but this was not filled as patient had another seizure and then presented to [facility] emergency center. She was found to have a temperature of 104.0, tachycardia, hypotension, leukocytosis at 12.4. GFR was 57, albumin 3.3, AST 45 , influenza testing a and B were negative. Urinalysis showed protein trace, blood trace, leukoesterase moderate, WBC 33 and bacteria rare. Two blood cultures drawn at the same time are positive for gram-negative rods. Urine culture is in progress. Patient was given 1 dose of ceftriaxone and [facility] and continued on Levaquin. Patient is able to answer some questions and appears to be answering appropriately. Her main caregiver is also at the bedside and history is being confirmed with her. Patient does state that she has pain when she urinates but unable to determine how long this has been going on. Plan is for patient to return to her own apartment where she has 24-hour care. She does have a cruise to [place] scheduled for September 20 with her sister/guardian and other family members. Her nurse also relates that last evening patient was feeling an aura as she normally would before a seizure. Her nurse gave her oral Ativan and patient did not have seizure activity at that time. Please see the consult note is dictated by nurse practitioner Mrs. Bobbi Curry. Patient does have evidence of gram-negative sepsis from the urinary system. Final authentication is pending. Ceftriaxone is an excellent choice this point in time pending further data. Patient's and proving this evening. Ate her dinner without difficulties. Once cultures are back we'll have plans for her ongoing treatment. I agree with evaluation, assessment and plan as dictated by nurse practitioner Mrs. Bobbi Curry.
[2016-09-07] MEDS: LORazepam 0.5 MG TAB PO SCH (20:05)
[2016-09-07] MEDS: MELATONIN 3 MG TABLET PO SCH (20:05)
[2016-09-08] MEDS: SODIUM CHLORIDE 0.9% 1,000 ML IV SCH (02:59)
--- NOTE | 2016-09-08 07:57 | P.PN ---
Progress Note - Text The patient is a 61-year-old female Dr. Angels for whom I am covering. The patient was admitted with uncontrolled seizures. Also found to have a urinary tract infection and with positive blood cultures and urine culture for gram- negative rods consistent with sepsis and septicemia associated with systemic inflammatory response syndrome likely lowering her seizure threshold. Patient has been on antibiotics. She is presently on ceftriaxone and has been seen by infectious disease. The patient does have some underlying mental retardation. Apparently lives in a long term. She does respond to verbal and physical stimuli this morning. She does not appear to be in any distress. Vital signs reveal temperature of 98.1 with a pulse of 80 and respirations 14. Blood pressure is 105/64 and she is 95% saturated on room air. Lung and heart exam was clear. Abdomen nontender. No edema. She appears to be moving all extremities without focal deficits and cranial nerve deficits at this time. Laboratory: CBC and basic metabolic panel were unremarkable. White count is down to 9.1. Hemoglobin at 12. Electrolytes are normal. BUN is 15 with creatinine 1.02 given her a GFR of 55. Albumin low at 3.0 Microbiology: Positive once again was positive in the urine and blood for gram-negative bacilli with further identification and sensitivities to follow. Impressions and plans: This point we'll continue present antiseizure and antibiotics as per neurology and infectious disease specialist. Further recommendations pending further clinical response and results of cultures. Also awaiting results of blood levels on her antiseizure medications for any adjustments per neurology.
[2016-09-08] MEDS: POLYETHYLENE GLYCOL 3350 17 GM POWD.PACK PO SCH (09:16)
[2016-09-08] MEDS: PANTOPRAZOLE 40 MG TABLET PO SCH (09:16)
[2016-09-08] MEDS: VERAPAMIL SR 240 MG TABLET.ER PO SCH (09:16)
[2016-09-08] MEDS: LISINOPRIL 10 MG TAB PO SCH (09:16)
[2016-09-08] MEDS: SERTRALINE 100 MG TAB PO SCH (09:16)
[2016-09-08] MEDS: ZIPRASIDONE 80 MG CAP PO SCH ×2 (09:16→20:58)
[2016-09-08] MEDS: LORazepam 0.5 MG TAB PO SCH ×2 (09:17→20:57)
[2016-09-08] MEDS: OXcarbazepine 300 MG TAB PO SCH ×2 (09:18→20:57)
[2016-09-08] MEDS: ASPIRIN 325 MG TAB PO SCH (09:18)
[2016-09-08] MEDS: DIGOXIN 250 MCG TAB PO SCH (09:18)
[2016-09-08] MEDS: lamoTRIgine 100 MG TAB PO SCH ×2 (13:30→20:57)
[2016-09-08] MEDS: MULTIVITAMINS, THERA 1 EACH TAB PO SCH (13:30)
[2016-09-08] MEDS: MELATONIN 3 MG TABLET PO SCH (20:57)
--- NOTE | 2016-09-08 21:20 | P.PN ---
Subjective Principal diagnosis: Gram-negative sepsis This is a 61-year-old female with past medical history significant for moderate intellectual disability, paroxysmal atrial fibrillation, hypertension, seizure disorder. [place] and had a seizure and staff thought she hit her head. She was transported to [facility] and underwent a CAT scan of the head which was negative and of the C-spine which did show degenerative changes. She was found to have a urinary tract infection with urinalysis showing WBC greater than 25, bacteria greater than 30, blood 1+. Patient was discharged on Macrobid but this was not filled as patient had another seizure and then presented to [facility] emergency center. She was found to have a temperature of 104.0, tachycardia, hypotension, leukocytosis at 12.4. GFR was 57, albumin 3.3, AST 45 , influenza testing a and B were negative. Urinalysis showed protein trace, blood trace, leukoesterase moderate, WBC 33 and bacteria rare. Two blood cultures drawn at the same time are positive for gram-negative rods. Urine culture is in progress. Patient was given 1 dose of [facility]ftriaxone [facility] continued on Leva[facility]. Patient is able to answer some questions and appears to be answering appropriately. Her main caregiver is also at the bedside and history is being confirmed with her. Patient does state that she has pain when she urinates but unable to determine how long this has been going on. Plan is for patient to return to her own apartment where she has 24-hour care. She does have a cruise to [place] scheduled for September 20 with her sister/guardian and other family members. Her nurse also relates that last evening patient was feeling an aura as she normally would before a seizure. Her nurse gave her oral Ativan and patient did not have seizure activity at that time. Feeling much better today. Is able to eat her meals. No further seizures are noted. Objective - Vital Signs Vital signs: Vital Signs Temp 97.5 F L 09/08/16 15:00 Pulse 68 09/08/16 16:00 Resp 16 09/08/16 16:00 BP 123/57 09/08/16 15:00 Pulse Ox 95 09/08/16 15:00 Intake & Output 09/08/16 09/08/16 09/09/16 06:59 18:59 06:59 Intake Total 50 Balance 50 Intake: Intake, IV Titration 50 Amount Sodium Chloride 0.9% 1, 0 000 ml @ 20 mls/hr IV . Q24H SUSIE Rx#:[id number] cefTRIAXone 1,000 mg In 50 Sodium Chloride 0.9% 50 ml @ 100 mls/hr IVPB Q12HR SUSIE Rx#:[id number] Other: # Voids 2 2 - Exam Gen: This is a 61-year-old female. She is in bed and appears to be in no acute distress. No respiratory distress is noted. HEENT: Head is atraumatic, normocephalic. Pupils equal, round. Sclerae is anicteric. Conjunctiva pink. Mucous membranes of the mouth are moist. No thrush noted. No tenderness, edema or masses noted to the scalp. NECK: Supple. No JVD. No lymphadenopathy. No thyromegaly. LUNGS: Clear to auscultation. No wheezes or rhonchi. No intercostal retractions. HEART: Regular rate and rhythm. No murmur. ABDOMEN: Soft. Bowel sounds are present. No masses. No tenderness. No suprapubic tenderness. EXTREMITIES: No pedal edema. No calf tenderness. Dorsalis pedis +2 bilaterally. Onychomycosis bilateral toes NEUROLOGICAL: Patient is awake, alert and oriented x2 - Labs CBC & Chem 7: 09/07/16 07:44 09/07/16 07:44 Labs: Microbiology - Last 24 Hours (Table) 09/07/16 07:52 Blood Culture - Preliminary Blood No Growth after 24 hours 09/07/16 07:44 Blood Culture - Preliminary Blood No Growth after 24 hours Laboratory Results WBC 9.1 k/uL (3.8-10.6) 09/07/16 07:44 RBC 4.00 m/uL (3.80-5.40) 09/07/16 07:44 Hgb 12.0 gm/dL (11.4-16.0) 09/07/16 07:44 Hct 36.7 % (34.0-46.0) 09/07/16 07:44 MCV 91.7 fL (80.0-100.0) 09/07/16 07:44 MCH 30.0 pg (25.0-35.0) 09/07/16 07:44 MCHC 32.8 g/dL (31.0-37.0) 09/07/16 07:44 RDW 13.2 % (11.5-15.5) 09/07/16 07:44 Plt Count 182 k/uL (150-450) 09/07/16 07:44 Neutrophils % 69 % 09/07/16 07:44 Lymphocytes % 13 % 09/07/16 07:44 Monocytes % 6 % 09/07/16 07:44 Eosinophils % 1 % 09/07/16 07:44 Basophils % 1 % 09/07/16 07:44 Neutrophils # 6.3 k/uL (1.3-7.7) 09/07/16 07:44 Lymphocytes # 1.2 k/uL (1.0-4.8) 09/07/16 07:44 Monocytes # 0.6 k/uL (0-1.0) 09/07/16 07:44 Eosinophils # 0.1 k/uL (0-0.7) 09/07/16 07:44 Basophils # 0.1 k/uL (0-0.2) 09/07/16 07:44 PT 11.2 sec (9.0-12.0) 09/05/16 23:45 INR 1.1 (<1.1) 09/05/16 23:45 APTT 21.5 sec (22.0-30.0) L 09/05/16 23:45 Sodium 141 mmol/L (137-145) 09/07/16 07:44 Potassium 4.7 mmol/L (3.5-5.1) 09/07/16 07:44 Chloride 107 mmol/L (98-107) 09/07/16 07:44 Carbon Dioxide 23 mmol/L (22-30) 09/07/16 07:44 Anion Gap 11 mmol/L 09/07/16 07:44 BUN 15 mg/dL (7-17) 09/07/16 07:44 Creatinine 1.02 mg/dL (0.52-1.04) 09/07/16 07:44 Est GFR (MDRD) Af Amer >60 (>60 ml/min/1.73 sqM) 09/07/16 07:44 Est GFR (MDRD) Non-Af 55 (>60 ml/min/1.73 sqM) 09/07/16 07:44 Glucose 96 mg/dL (74-99) 09/07/16 07:44 POC Glucose (mg/dL) 149 mg/dL (75-99) H 09/06/16 01:01 POC Glu Blow Molding Machine Operator ID Cecilia Hernández 09/06/16 01:01 Plasma Lactic Acid Arcadio 1.3 mmol/L (0.7-2.0) 09/05/16 23:45 Calcium 9.4 mg/dL (8.4-10.2) 09/07/16 07:44 Total Bilirubin 0.3 mg/dL (0.2-1.3) 09/07/16 07:44 AST 34 U/L (14-36) 09/07/16 07:44 ALT 38 U/L (9-52) 09/07/16 07:44 Alkaline Phosphatase 104 U/L (38-126) 09/07/16 07:44 Troponin I 0.027 ng/mL (0.000-0.034) 09/05/16 23:45 Total Protein 5.8 g/dL (6.3-8.2) L 09/07/16 07:44 Albumin 3.0 g/dL (3.5-5.0) L 09/07/16 07:44 TSH 1.360 mIU/L (0.465-4.680) 09/07/16 07:44 Urine Color Yellow 09/06/16 01:37 Urine Appearance Clear (Clear) 09/06/16 01:37 Urine pH 6.5 (5.0-8.0) 09/06/16 01:37 Ur Specific [place] 1.006 (1.001-1.035) 09/06/16 01:37 Urine Protein Trace (Negative) H 09/06/16 01:37 Urine Glucose (UA) Negative (Negative) 09/06/16 01:37 Urine Ketones Negative (Negative) 09/06/16 01:37 Urine Blood Trace (Negative) H 09/06/16 01:37 Urine Nitrate Negative (Negative) 09/06/16 01:37 Urine Bilirubin Negative (Negative) 09/06/16 01:37 Urine Urobilinogen <2.0 mg/dL (<2.0) 09/06/16 01:37 Ur Leukocyte Esterase Moderate (Negative) H 09/06/16 01:37 Urine RBC 4 /hpf (0-5) 09/06/16 01:37 Urine WBC 33 /hpf (0-5) H 09/06/16 01:37 Urine Bacteria Rare /hpf (None) H 09/06/16 01:37 Urine Mucus Rare /hpf (None) H 09/06/16 01:37 Oxcarbazepine 26.5 ug/mL (10-35) 09/07/16 07:44 Lamotrigine 4.7 ug/mL (2.0-15.0) 09/06/16 19:03 Influenza Type A RNA Not Detected (Not Detectd) 09/05/16 23:45 Influenza Type B (PCR) Not Detected (Not Detectd) 09/05/16 23:45 Microbiology 09/05/16 23:45 Blood Blood Culture Gram Stain - Final 09/05/16 23:45 Blood Blood Culture - Final Serratia liquefaciens 09/06/16 01:37 Urine,Catheterized Urine Culture - Final Serratia marcescens 09/07/16 07:52 Blood Blood Culture - Preliminary No Growth after 24 hours 09/07/16 07:44 Blood Blood Culture - Preliminary No Growth after 24 hours 09/05/16 23:45 Blood Blood Culture - Preliminary Assessment and Plan (1) Gram negative sepsis Status: Acute (2) Serratia infection Status: Acute (3) Urinary tract infection Status: Acute
[2016-09-09 07:41] VITALS: BP 101/60; PULSE 77; RESP 16; TEMP 97.4
--- NOTE | 2016-09-09 07:58 | P.PN ---
Progress Note - Text The patient is a 61-year-old female of Dr. Hernandez's for whom I am covering. Patient presented with uncontrolled seizures. Also found to have a urinary tract infection with sepsis and positive blood cultures that have grown out Serratia species. She is not had any further seizures and has regained her baseline mental status. As she has been seen by Dr. Mckeon from infectious disease and repeat cultures from the blood were negative from September 07. The patient herself is sitting up in bed. She denies any pain. No nausea or vomiting. No further seizures. Vital signs reveal temperature 97.4 with a pulse of 77 respirations 16. Blood pressure 101/60 and she is 93% saturated on room air. Lung and heart exam clear. Abdomen is soft and nontender. No edema. No new focal neurological changes. Level of OxyCarbazepine seen 26.5. Range 10-35. And the Lanotrigine 4.7. Range 2-15. Impressions and plans: At this point plans are to continue with ciprofloxacin 500 mg twice a day for 10 more days to continue her 2 week course from her sepsis from the urinary tract as outpatient. Patient can resume and continue her home dosages on her antiseizure medications. Follow-up with Dr. Hernandez upon his return over the next couple weeks. Discussed with nursing staff and patient today.
[2016-09-09] MEDS: POLYETHYLENE GLYCOL 3350 17 GM POWD.PACK PO SCH (08:42)
[2016-09-09] MEDS: SERTRALINE 100 MG TAB PO SCH (08:42)
[2016-09-09] MEDS: ASPIRIN 325 MG TAB PO SCH (08:42)
[2016-09-09] MEDS: PANTOPRAZOLE 40 MG TABLET PO SCH (08:42)
[2016-09-09] MEDS: ZIPRASIDONE 80 MG CAP PO SCH (08:42)
[2016-09-09] MEDS: MULTIVITAMINS, THERA 1 EACH TAB PO SCH (08:43)
[2016-09-09] MEDS: OXcarbazepine 300 MG TAB PO SCH (08:43)
[2016-09-09] MEDS: DIGOXIN 250 MCG TAB PO SCH (08:43)
[2016-09-09] MEDS: LISINOPRIL 10 MG TAB PO SCH (08:43)
[2016-09-09] MEDS: VERAPAMIL SR 240 MG TABLET.ER PO SCH (08:43)
[2016-09-09] MEDS: LORazepam 0.5 MG TAB PO SCH (08:44)
--- NOTE | 2016-09-09 20:48 | P.PN ---
Subjective Principal diagnosis: Gram-negative sepsis This is a 61-year-old female with past medical history significant for moderate intellectual disability, paroxysmal atrial fibrillation, hypertension, seizure disorder. [place] the [place] and had a seizure and staff thought she hit her head. She was transported to [facility] and underwent a CAT scan of the head which was negative and of the C-spine which did show degenerative changes. She was found to have a urinary tract infection with urinalysis showing WBC greater than 25, bacteria greater than 30, blood 1+. Patient was discharged on Macrobid but this was not filled as patient had another seizure and then presented to [facility] emergency center. She was found to have a temperature of 104.0, tachycardia, hypotension, leukocytosis at 12.4. GFR was 57, albumin 3.3, AST 45 , influenza testing a and B were negative. Urinalysis showed protein trace, blood trace, leukoesterase moderate, WBC 33 and bacteria rare. Two blood cultures drawn at the same time are positive for gram-negative rods. Urine culture is in progress. Patient was given 1 dose of ceftriaxone and [facility] and continued on Levaquin. Patient is able to answer some questions and appears to be answering appropriately. Her main caregiver is also at the bedside and history is being confirmed with her. Patient does state that she has pain when she urinates but unable to determine how long this has been going on. Plan is for patient to return to her own apartment where she has 24-hour care. She does have a cruise to [place] scheduled for September 20 with her sister/ guardian and other family members. Feeling much better today. Is able to eat her meals. No further seizures are noted. Objective - Vital Signs Vital signs: Vital Signs Temp 97.4 F L 09/09/16 07:00 Pulse 77 09/09/16 07:00 Resp 16 09/09/16 08:00 BP 101/60 09/09/16 07:00 Pulse Ox 93 L 09/09/16 07:00 Intake & Output 09/09/16 09/09/16 09/10/16 06:59 18:59 06:59 Intake Total 100 Balance 100 Intake: Intake, IV Titration 100 Amount cefTRIAXone 1,000 mg In 100 Sodium Chloride 0.9% 50 ml @ 100 mls/hr IVPB Q12HR [facility] Rx#:[id number] Other: # Voids 2 1 # Bowel Movements 1 - Exam Gen: This is a 61-year-old female. She is in bed and appears to be in no acute distress. No respiratory distress is noted. HEENT: Head is atraumatic, normocephalic. Pupils equal, round. Sclerae is anicteric. Conjunctiva pink. Mucous membranes of the mouth are moist. No thrush noted. No tenderness, edema or masses noted to the scalp. NECK: Supple. No JVD. No lymphadenopathy. No thyromegaly. LUNGS: Clear to auscultation. No wheezes or rhonchi. No intercostal retractions. HEART: Regular rate and rhythm. No murmur. ABDOMEN: Soft. Bowel sounds are present. No masses. No tenderness. No suprapubic tenderness. EXTREMITIES: No pedal edema. No calf tenderness. Dorsalis pedis +2 bilaterally. Onychomycosis bilateral toes NEUROLOGICAL: Patient is awake, alert and oriented x2 - Labs CBC & Chem 7: 09/07/16 07:44 09/07/16 07:44 Labs: Microbiology - Last 24 Hours (Table) 09/07/16 07:52 Blood Culture - Preliminary Blood No Growth after 48 hours 09/07/16 07:44 Blood Culture - Preliminary Blood No Growth after 48 hours Laboratory Results WBC 9.1 k/uL (3.8-10.6) 09/07/16 07:44 RBC 4.00 m/uL (3.80-5.40) 09/07/16 07:44 Hgb 12.0 gm/dL (11.4-16.0) 09/07/16 07:44 Hct 36.7 % (34.0-46.0) 09/07/16 07:44 MCV 91.7 fL (80.0-100.0) 09/07/16 07:44 MCH 30.0 pg (25.0-35.0) 09/07/16 07:44 MCHC 32.8 g/dL (31.0-37.0) 09/07/16 07:44 RDW 13.2 % (11.5-15.5) 09/07/16 07:44 Plt Count 182 k/uL (150-450) 09/07/16 07:44 Neutrophils % 69 % 09/07/16 07:44 Lymphocytes % 13 % 09/07/16 07:44 Monocytes % 6 % 09/07/16 07:44 Eosinophils % 1 % 09/07/16 07:44 Basophils % 1 % 09/07/16 07:44 Neutrophils # 6.3 k/uL (1.3-7.7) 09/07/16 07:44 Lymphocytes # 1.2 k/uL (1.0-4.8) 09/07/16 07:44 Monocytes # 0.6 k/uL (0-1.0) 09/07/16 07:44 Eosinophils # 0.1 k/uL (0-0.7) 09/07/16 07:44 Basophils # 0.1 k/uL (0-0.2) 09/07/16 07:44 PT 11.2 sec (9.0-12.0) 09/05/16 23:45 INR 1.1 (<1.1) 09/05/16 23:45 APTT 21.5 sec (22.0-30.0) L 09/05/16 23:45 Sodium 141 mmol/L (137-145) 09/07/16 07:44 Potassium 4.7 mmol/L (3.5-5.1) 09/07/16 07:44 Chloride 107 mmol/L (98-107) 09/07/16 07:44 Carbon Dioxide 23 mmol/L (22-30) 09/07/16 07:44 Anion Gap 11 mmol/L 09/07/16 07:44 BUN 15 mg/dL (7-17) 09/07/16 07:44 Creatinine 1.02 mg/dL (0.52-1.04) 09/07/16 07:44 Est GFR (MDRD) Af Amer >60 (>60 ml/min/1.73 sqM) 09/07/16 07:44 Est GFR (MDRD) Non-Af 55 (>60 ml/min/1.73 sqM) 09/07/16 07:44 Glucose 96 mg/dL (74-99) 09/07/16 07:44 POC Glucose (mg/dL) 149 mg/dL (75-99) H 09/06/16 01:01 POC Glu [employer] Equipment Installer ID Cecilia Hernández 09/06/16 01:01 Plasma Lactic Acid Arcadio 1.3 mmol/L (0.7-2.0) 09/05/16 23:45 Calcium 9.4 mg/dL (8.4-10.2) 09/07/16 07:44 Total Bilirubin 0.3 mg/dL (0.2-1.3) 09/07/16 07:44 AST 34 U/L (14-36) 09/07/16 07:44 ALT 38 U/L (9-52) 09/07/16 07:44 Alkaline Phosphatase 104 U/L (38-126) 09/07/16 07:44 Troponin I 0.027 ng/mL (0.000-0.034) 09/05/16 23:45 Total Protein 5.8 g/dL (6.3-8.2) L 09/07/16 07:44 Albumin 3.0 g/dL (3.5-5.0) L 09/07/16 07:44 TSH 1.360 mIU/L (0.465-4.680) 09/07/16 07:44 Urine Color Yellow 09/06/16 01:37 Urine Appearance Clear (Clear) 09/06/16 01:37 Urine pH 6.5 (5.0-8.0) 09/06/16 01:37 Ur Specific [place] 1.006 (1.001-1.035) 09/06/16 01:37 Urine Protein Trace (Negative) H 09/06/16 01:37 Urine Glucose (UA) Negative (Negative) 09/06/16 01:37 Urine Ketones Negative (Negative) 09/06/16 01:37 Urine Blood Trace (Negative) H 09/06/16 01:37 Urine Nitrate Negative (Negative) 09/06/16 01:37 Urine Bilirubin Negative (Negative) 09/06/16 01:37 Urine Urobilinogen <2.0 mg/dL (<2.0) 09/06/16 01:37 Ur Leukocyte Esterase Moderate (Negative) H 09/06/16 01:37 Urine RBC 4 /hpf (0-5) 09/06/16 01:37 Urine WBC 33 /hpf (0-5) H 09/06/16 01:37 Urine Bacteria Rare /hpf (None) H 09/06/16 01:37 Urine Mucus Rare /hpf (None) H 09/06/16 01:37 Oxcarbazepine 26.5 ug/mL (10-35) 09/07/16 07:44 Lamotrigine 4.7 ug/mL (2.0-15.0) 09/06/16 19:03 Influenza Type A RNA Not Detected (Not Detectd) 09/05/16 23:45 Influenza Type B (PCR) Not Detected (Not Detectd) 09/05/16 23:45 Microbiology 09/07/16 07:52 Blood Blood Culture - Preliminary No Growth after 48 hours 09/07/16 07:44 Blood Blood Culture - Preliminary No Growth after 48 hours 09/05/16 23:45 Blood Blood Culture Gram Stain - Final 09/05/16 23:45 Blood Blood Culture - Final Serratia liquefaciens 09/06/16 01:37 Urine,Catheterized Urine Culture - Final Serratia marcescens 09/05/16 23:45 Blood Blood Culture - Preliminary Assessment and Plan (1) Gram negative sepsis Narrative/Plan: 61-year-old woman presents to Hospital from the outside hospital because of concerns to seizure. Because of her current seizure she was admitted. Currently is not having evidence of ongoing recurrent seizures at this time. Overall seems to be quite improved. She does have evidence of marked improvement. There was concerns to quinolone resistant organisms and she was treated with ceftriaxone. She has evidence of Serratia liquefaciens of her urine and her blood. This likely that the underlying sepsis was responsible for her altered mental status. She is improved at this time. She is ready for discharge to home with utilize oral ciprofloxacin 500 mg every 12 hours to complete a 14 day course of therapy for her sepsis from the urinary system. The nursing staff do relate that she has very unique and somewhat inappropriate hygiene habits. After she urinates she wipes her vaginal area many times [id number] which gives many opportunities for contamination. Nursing is tried to educate but patient has limited ability to relearn activity at the moment. We'll not need outpatient intravenous antibiotic therapy. Prescription for ciprofloxacin is sent Status: Acute (2) Serratia infection Status: Acute (3) Urinary tract infection Status: Acute
--- NOTE | 2016-09-10 08:26 | DS ---
DATE OF ADMISSION: 09/06/2016 DATE OF DISCHARGE: 09/09/2016 Mrs. Pride 61-year-old patient, patient of Dr. Oral Hernandez's for whom I was covering. The patient presented with recurrent seizures to the emergency room and mental status changes. She was also found to have pyuria and a urinary tract infection with blood and urine cultures growing out Serratia. She was initially admitted. She was placed initially on ceftriaxone and Levaquin. Consultation obtained with neurology, Dr. García, regarding the seizures and subsequently with Dr. Mckeon from infectious disease as she grew out the gram-negative Serratia in her urine and blood. The patient clinically improved with the antibiotics along with fluids. The patient does have some underlying mental retardation and seemed to return back to her overall baseline and had no further seizures during her hospitalization. Her laboratory values initially revealed a white count of 12.4, hemoglobin 12.3 and a platelet count of 178. Her initial INR was 1.1. Sodium was 132 with potassium 4.2, CO2 content 23. Her BUN is 14, creatinine 1.0 giving her a GFR of 57. Glucose was 145. AST was slightly elevated at 45 with a normal ALT and alk phos and bilirubin both were normal. Albumin slightly low at 3.3. Troponin normal at 0.027. Test for influenza A and B were negative. Chest x-ray there was initial question of a left lower lobe infiltrate, but clinically she did not have any symptoms in that regard. EKG revealed initial junctional rhythm with some ST-T wave abnormalities, but no definite ischemic changes. As mentioned, patient's blood cultures initially revealed Serratia liquefaciens. Her urine grew out Serratia marcescens. Further blood cultures on the seventh that were done showed no growth after 48 hours and it was under recommendation of Dr. Mckeon that she could be discharged with a full course of ciprofloxacin 500 mg twice a day. Other home medications: 1. Acetaminophen 325 mg q.6 hours as needed for pain. 2. Aspirin 325 daily. 3. Lanoxin 0.125, apparently she takes 2 daily. 4. Ativan 0.5 twice a day as needed. 5. Melatonin for sleep 3 mg. 6. Multiple vitamin daily. 7. Trileptal 300 mg tablet in the morning and 600 at bedtime. 8. She takes MiraLAX 17 grams daily. 9. Zoloft 150 mg daily. 10. Verapamil ER 240 mg daily. 11. Geodon 80 mg twice a day. 12. Lamictal 100 mg at 8:00 in the morning, 200 mg another twice a day after that, apparently at 1430 and 2030. She did have blood levels of her antiseizure medications and they were therapeutic. Please refer to notes by Dr. García and Dr. Mckeon. Diet will be as tolerated. She is to return to the retirement where she resides. FINAL DISCHARGE DIAGNOSES BEIN. Acute uncontrolled seizures related to gram-negative septicemia with mental status changes and increased seizure disorder with grand mal seizures related to systemic inflammatory response syndrome and the gram-negative sepsis with Serratia organisms as specified above. 2. The patient does have history of seizure disorder. 3. History of mental retardation. 4. History of paroxysmal atrial flutter in the past. No anticoagulation due to frequent seizures and fall risk. 5. Mild hyponatremia. 6. Acute stage III renal failure secondary to the septicemia, which resolved with treatment of the infection and hydration. Also of note, this patient initially presented to [facility] where a CAT scan there was negative. I discussed the case with the sister. Patient to return to ER if further problems with seizures. EMMETTD
== END 2016-09-09 12:14 | disposition home health service (06) | DRG 872 ==
LOC: EC 23:43 → 4MS4W 09-06 02:43
PROVIDERS: ADMIT Internal Medicine; ATTEND Internal Medicine
DX: A41.53 Sepsis due to Serratia (principal); I95.9 Hypotension, unspecified; N17.9 Acute kidney failure, unspecified; E87.1 Hypo-osmolality and hyponatremia; I48.92 Unspecified atrial flutter; G40.409 Other generalized epilepsy and epileptic syndromes, not intractable, without status epilepticus; N18.3 Chronic kidney disease, stage 3 (moderate); I48.0 Paroxysmal atrial fibrillation; I12.9 Hypertensive chronic kidney disease with stage 1 through stage 4 chronic kidney disease, or unspecified chronic kidney disease; F25.9 Schizoaffective disorder, unspecified; N39.0 Urinary tract infection, site not specified; R91.8 Other nonspecific abnormal finding of lung field; F42.9 Obsessive-compulsive disorder, unspecified; B35.1 Tinea unguium; F71 Moderate intellectual disabilities; Z82.49 Family history of ischemic heart disease and other diseases of the circulatory system; Z79.82 Long term (current) use of aspirin; Z79.899 Other long term (current) drug therapy; Z80.7 Family history of other malignant neoplasms of lymphoid, hematopoietic and related tissues; Z91.81 History of falling; Z87.440 Personal history of urinary (tract) infections; Z87.01 Personal history of pneumonia (recurrent)
CPT/HCPCS: 36415; 71010; 80053; 80175; 80183; 81001; 83605; 84443; 84484; 85025; 85610; 85730; 87040; 87077; 87086; 87186; 87502; 93005; 96361; 96365; 96375; 99285

== ENCOUNTER 2016-10-09 07:51 | Inpatient (IN) | payer MEDICARE, OTHER ==
[2016-10-09] MEDS ORDERED: LORazepam 2 MG/ML SYRINGE IV STA (08:16)
--- NOTE | 2016-10-09 08:26 | ED ---
Seizure HPI - General Chief Complaint: Seizure Stated Complaint: Seizure Time Seen by Provider: 10/09/16 08:08 Source: patient, family Mode of arrival: wheelchair Limitations: no limitations - History of Present Illness Initial Comments: She lives at the facility where she is fed as well as her medications are given to her on time they noticed that she had the 4 seizures last 8 hours her sister is in the ER she is also her [employer] she noticed that she had a fever she denies any fall or any injury from the seizure and she is not quite able to talk fluently yet she still postictal. She denies any headaches no neck pain no chest pain or shortness of breath no abdominal pain no frequency urgency dysuria at this point she had a bit of a fever in the ER and she had a recent history of UTIs the cultures were positive - Related Data Home Medications Medication Instructions Recorded Confirmed Acetaminophen [Tylenol] 650 mg PO Q6H PRN 02/13/14 10/09/16 Aspirin 325 mg PO DAILY 02/13/14 10/09/16 LORazepam [Ativan] 1 mg SL DAILY PRN 02/13/14 10/09/16 Melatonin 3 mg PO HS 02/13/14 10/09/16 Multivitamins, Thera [Multivitamin] 1 tab PO DAILY 02/13/14 10/09/16 OXcarbazepine [Trileptal] 300 mg PO DAILY 02/13/14 10/09/16 OXcarbazepine [Trileptal] 600 mg PO HS 02/13/14 10/09/16 Polyethylene Glycol 3350 [Miralax] 17 gm PO DAILY PRN 02/13/14 10/09/16 Sertraline [Zoloft] 150 mg PO DAILY 02/13/14 10/09/16 Verapamil HCl [Verapamil ER] 240 mg PO DAILY 02/13/14 10/09/16 Ziprasidone [Geodon] 80 mg PO BID 02/13/14 10/09/16 lamoTRIgine [LaMICtal] 100 mg PO DAILY@0800 02/13/14 10/09/16 lamoTRIgine [LaMICtal] 200 mg PO BID@1430,2030 02/13/14 10/09/16 Digoxin [Lanoxin] 125 mcg PO BID 09/06/16 10/09/16 Allergies Allergy/AdvReac Type Severity Reaction Status Date / Time No Known Allergies Allergy Verified 10/09/16 08:03 Review of Systems ROS Statement: Those systems with pertinent positive or pertinent negative responses have been documented in the HPI. ROS Other: All systems not noted in ROS Statement are negative. Past Medical History Past Medical History: Atrial Fibrillation, Hypertension, Pneumonia, Seizure Disorder Additional Past Medical History / Comment(s): Vertigo, paroxysmal atrial fibrillation, moderate intellectual disability History of Any Multi-Drug Resistant Organisms: None Reported Past Surgical History: No Surgical Hx Reported Past Psychological History: Schizoaffective Disorder Additional Psychological History / Comment(s): OCD, auditory hallucinations, needs reassurance that she is ok. Smoking Status: Never smoker Past Alcohol Use History: None Reported Additional Past Alcohol Use History / Comment(s): Patient is a lifelong nonsmoker, no illicit drug use, alcohol use. Patient lives in her own apartment with a roommate. They have 24-hour care. There are no pets in the home. No recent travel. Past Drug Use History: None Reported - Past Family History Father Family Medical History: Cancer Mother Family Medical History: AFIB, Congestive Heart Failure (CHF) General Exam Limitations: no limitations Course Vital Signs 10/09/16 10/09/16 10/09/16 07:59 08:27 08:57 Temperature 100.0 F H Pulse Rate 95 100 96 Respiratory 18 18 16 Rate Blood Pressure 172/95 162/83 147/84 O2 Sat by Pulse 95 98 92 L Oximetry 10/09/16 10/09/16 10/09/16 09:27 11:48 11:54 Temperature Pulse Rate 89 91 90 Respiratory 16 18 18 Rate Blood Pressure 142/77 143/84 152/90 O2 Sat by Pulse 93 L 96 99 Oximetry 10/09/16 10/09/16 10/09/16 11:57 12:02 12:07 Temperature Pulse Rate 95 107 H 105 H Respiratory 18 18 18 Rate Blood Pressure 195/97 188/104 187/119 O2 Sat by Pulse 99 98 98 Oximetry 10/09/16 10/09/16 10/09/16 12:12 12:17 12:22 Temperature Pulse Rate 102 H 100 100 Respiratory 20 20 20 Rate Blood Pressure 219/160 240/181 219/107 O2 Sat by Pulse 98 98 98 Oximetry 10/09/16 10/09/16 12:27 12:32 Temperature Pulse Rate 105 H 103 H Respiratory 20 18 Rate Blood Pressure 164/90 164/90 O2 Sat by Pulse 99 92 L Oximetry EKG is normal sinus rhythm ventricular rate is 90 MO interval is 196 QRS duration is 84 QT/QTc is 340/450 review of this EKG reveals some slight ST depression and now lead 1 and 2 and aVF also noticed T-wave inversion in V2 V3 V4 V5 and V6 this EKG was compared with EKG back from 09/05/2016 and looks quite similar Patient was reassessed at 1025 her DURABLE [employer] and her sister recently room she feels that there is a significant mental status changes she is not herself patient was reexamined or her labs were reviewed and discussed with the family, temp is 100.3 CBC is revealing white count 11.1 with a left shift compressive metabolic panel is negative urine is negative chest x-rays unremarkable and head CT is unremarkable at this point concerned about bacteremia with her and get her started on Rocephin 2 g IV normal along with the Vanco 1 g IV and I did discuss with the sister wanted to LP Medical Decision Making - Lab Data Result diagrams: 10/09/16 08:30 10/09/16 08:30 Lab Results 10/09/16 10/09/16 10/09/16 Range/Units 08:30 08:30 08:30 WBC 11.1 H (3.8-10.6) k/uL RBC 5.06 (3.80-5.40) m/uL Hgb 14.7 (11.4-16.0) gm/dL Hct 44.9 (34.0-46.0) % MCV 88.7 (80.0-100.0) fL MCH 29.0 (25.0-35.0) pg MCHC 32.7 (31.0-37.0) g/dL RDW 13.8 (11.5-15.5) % Plt Count 277 (150-450) k/uL Neutrophils % 84 % Lymphocytes % 8 % Monocytes % 4 % Eosinophils % 0 % Basophils % 1 % Neutrophils # 9.3 H (1.3-7.7) k/uL Lymphocytes # 0.9 L (1.0-4.8) k/uL Monocytes # 0.5 (0-1.0) k/uL Eosinophils # 0.0 (0-0.7) k/uL Basophils # 0.1 (0-0.2) k/uL Sodium 138 (137-145) mmol/L Potassium 5.0 (3.5-5.1) mmol/L Chloride 98 (98-107) mmol/L Carbon Dioxide 29 (22-30) mmol/L Anion Gap 11 mmol/L BUN 13 (7-17) mg/dL Creatinine 0.95 (0.52-1.04) mg/dL Est GFR (MDRD) Af Amer >60 (>60 ml/min/1.73 sqM) Est GFR (MDRD) Non-Af >60 (>60 ml/min/1.73 sqM) Glucose 109 H (74-99) mg/dL Plasma Lactic Acid [place]cad[place] 1.2 (0.7-2.0) mmol/L Calcium 10.6 H (8.4-10.2) mg/dL Total Bilirubin 0.5 (0.2-1.3) mg/dL AST 27 (14-36) U/L ALT 33 (9-52) U/L Alkaline Phosphatase 138 H (38-126) U/L Total Protein 8.0 (6.3-8.2) g/dL Albumin 4.5 (3.5-5.0) g/dL Urine Color Urine Appearance (Clear) Urine pH (5.0-8.0) Ur Specific [place] (1.001-1.035) Urine Protein (Negative) Urine Glucose (UA) (Negative) Urine Ketones (Negative) Urine Blood (Negative) Urine Nitrite (Negative) Urine Bilirubin (Negative) Urine Urobilinogen (<2.0) mg/dL Ur Leukocyte Esterase (Negative) CSF Tube Number CSF Volume CSF Appearance CSF Color CSF RBC (0-10) u/L CSF Tot Nucleated Cells (0-5) u/L CSF Glucose (40-70) mg/dL 10/09/16 10/09/16 Range/Units 08:30 12:30 WBC (3.8-10.6) k/uL RBC (3.80-5.40) m/uL Hgb (11.4-16.0) gm/dL Hct (34.0-46.0) % MCV (80.0-100.0) fL MCH (25.0-35.0) pg MCHC (31.0-37.0) g/dL RDW (11.5-15.5) % Plt Count (150-450) k/uL Neutrophils % % Lymphocytes % % Monocytes % % Eosinophils % % Basophils % % Neutrophils # (1.3-7.7) k/uL Lymphocytes # (1.0-4.8) k/uL Monocytes # (0-1.0) k/uL Eosinophils # (0-0.7) k/uL Basophils # (0-0.2) k/uL Sodium (137-145) mmol/L Potassium (3.5-5.1) mmol/L Chloride (98-107) mmol/L Carbon Dioxide (22-30) mmol/L Anion Gap mmol/L BUN (7-17) mg/dL Creatinine (0.52-1.04) mg/dL Est GFR (MDRD) Af Amer (>60 ml/min/1.73 sqM) Est GFR (MDRD) Non-Af (>60 ml/min/1.73 sqM) Glucose (74-99) mg/dL Plasma Lactic Acid [place] (0.7-2.0) mmol/L Calcium (8.4-10.2) mg/dL Total Bilirubin (0.2-1.3) mg/dL AST (14-36) U/L ALT (9-52) U/L Alkaline Phosphatase (38-126) U/L Total Protein (6.3-8.2) g/dL Albumin (3.5-5.0) g/dL Urine Color Colorless Urine Appearance Clear (Clear) Urine pH 7.0 (5.0-8.0) Ur Specific [place] 1.003 (1.001-1.035) Urine Protein Negative (Negative) Urine Glucose (UA) Negative (Negative) Urine Ketones Negative (Negative) Urine Blood Negative (Negative) Urine Nitrite Negative (Negative) Urine Bilirubin Negative (Negative) Urine Urobilinogen <2.0 (<2.0) mg/dL Ur Leukocyte Esterase Negative (Negative) CSF Tube Number 4 CSF Volume 0.9 CSF Appearance Clear CSF Color Colorless CSF RBC 1 (0-10) u/L CSF Tot Nucleated Cells 1 (0-5) u/L CSF Glucose 58 (40-70) mg/dL Critical Care Time Total Critical Care Time: 45 Critical Care Time: Consulted considering her altered mental status it could be a post ictal she had 4 seizures last night but she is afebrile his 100.3 and according to the family she had a history of bacteremia we did the blood cultures were done empirically started started patient on Rocephin 2 g IV and ankle and with the attempt the lumbar puncture patient's cooperation is is necessary because patient has been for EGD and headache times uncooperative with the exam hopefully her family's presence will call her now, P was done in the ER, patient 's status was discussed with the Dr. Hernandez gave patient be admitted for further evaluation and management Disposition Clinical Impression: Seizure disorder, Altered mental status, Fever Disposition: ADMITTED IP TO THIS HOSP Condition: Fair Referrals: Oral Hernandez MD [Primary Care Provider] - 1-2 days
[2016-10-09 08:54] LABS: Basophils # (A) 0.1 k/uL (0-0.2); Basophils % (A) 1 %; CHCM 33.9; Eosinophils % (A) 0 %; HCT 44.9 % (34.0-46.0); HGB 14.7 gm/dL (11.4-16.0); Luc # (Auto) 0.29; Luc % (Auto) 3; Lymphocytes # (A) 0.9 k/uL (1.0-4.8); Lymphocytes % (A) 8 %; MCHC 32.7 g/dL (31.0-37.0); MCV 88.7 fL (80.0-100.0); Mean Platelet Volume 6.1; Monocytes # (A) 0.5 k/uL (0-1.0); Monocytes % (A) 4 %; Neutrophils # (A) 9.3 k/uL (1.3-7.7); Neutrophils % (A) 84 %; RBC 5.06 m/uL (3.80-5.40); RDW 13.8 % (11.5-15.5); WBC 11.1 k/uL (3.8-10.6)
[2016-10-09 08:56] LABS: Appearance,Urine Clear (Clear); Bilirubin,Urine Negative (Negative); Glucose,Urine (UA) Negative (Negative); Ketones,Urine Negative (Negative); Leukocyte Esterase,Urine Negative (Negative); Nitrite,Urine Negative (Negative); Protein,Urine Negative (Negative); Specific Gravity,Urine 1.003 (1.001-1.035); UA Billing (MACRO vs. MICRO) CHEM; Urobilinogen,Urine <2.0 mg/dL (<2.0)
[2016-10-09 09:03] LABS: ALT 33 U/L (9-52); AST 27 U/L (14-36); Alkaline Phosphatase 138 U/L (38-126); Anion Gap 11 mmol/L; Blood Urea Nitrogen 13 mg/dL (7-17); Calcium 10.6 mg/dL (8.4-10.2); Carbon Dioxide 29 mmol/L (22-30); Chloride 98 mmol/L (98-107); Glucose 109 mg/dL (74-99); Non-African American GFR(MDRD) >60 (>60 ml/min/1.73 sqM); Sodium 138 mmol/L (137-145); Total Bilirubin 0.5 mg/dL (0.2-1.3)
--- NOTE | 2016-10-09 09:21 | XR ---
EXAMINATION TYPE: XR chest 1V portable DATE OF EXAM: 10/09/2016 9:14 AM Comparison: 09/06/2016 Clinical History: 61-year-old female Pain Findings: Heart remains upper limits of normal in size. Mild diffuse interstitial prominence is unchanged. No c onsolidation or pleural effusion. Impression: Chronic changes, possible chronic bronchitis/asthma. No acute change seen.
--- NOTE | 2016-10-09 09:40 | CT ---
EXAMINATION TYPE: CT brain wo con DATE OF EXAM: 10/09/2016 9:25 AM COMPARISON: 02/13/2014 HISTORY: 61-year-old female with seizure activity TECHNIQUE: Examination was done in axial plane without intravenous contrast. Coronal and sagittal r econstructions performed. CT DLP: 1036 mGycm Automated exposure control for dose reduction was used. FINDINGS: There is no evidence of acute intracranial hemorrhage, acute ischemic changes, mass, mass-effect, or extra-axial fluid collection. There is no effacement of cerebral sulci or basal subarachnoid cister ns. There is no hydrocephalus. There is no midline shift. Mcgarry-white matter distinction is preserv ed. Visualized paranasal sinuses and mastoid air cells well pneumatized. Orbits and globes are intact. IMPRESSION: No acute intracranial abnormality seen.
[2016-10-09] MEDS ORDERED: PIPERACILLIN-TAZOBACTAM 3.375 GM in DEXTROSE/WATER 1 50ML.BAG IVPB STA (10:27)
[2016-10-09] MEDS ORDERED: VANCOMYCIN 1,000 MG in SODIUM CHLORIDE 0.9% 250 ML IVPB STA (10:32)
[2016-10-09] MEDS ORDERED: cefTRIAXone 2,000 MG in SODIUM CHLORIDE 0.9% 100 ML IVPB STA (10:32)
[2016-10-09] MEDS ORDERED: ACETAMINOPHEN TAB 325 MG TAB PO STA (11:04)
[2016-10-09] MEDS ORDERED: KETAMINE 10 MG/ML 20 ML VIAL IV ONE (11:17)
[2016-10-09 12:55] LABS: Appearance,CSF Clear
[2016-10-09 13:08] LABS: Glucose,CSF 58 mg/dL (40-70)
[2016-10-09] MEDS ORDERED: NALOXONE 0.4 MG/ML 1 ML VIAL IV PRN (13:17)
[2016-10-09] MEDS ORDERED: POLYETHYLENE GLYCOL 3350 17 GM POWD.PACK PO PRN (13:21)
[2016-10-09] MEDS ORDERED: LORazepam 0.5 MG TAB PO PRN (13:21)
[2016-10-09] MEDS ORDERED: OXcarbazepine 300 MG TAB PO STA (15:10)
[2016-10-09] MEDS ORDERED: lamoTRIgine 100 MG TAB PO STA (15:13)
[2016-10-09] MEDS: lamoTRIgine 100 MG TAB PO SCH ×2 (15:32→20:04)
[2016-10-09] MEDS: OXcarbazepine 300 MG TAB PO SCH ×2 (15:33→20:04)
[2016-10-09] MEDS: ACETAMINOPHEN TAB 325 MG TAB PO PRN (17:33)
--- NOTE | 2016-10-09 18:15 | HP ---
DATE OF ADMISSION: CHIEF COMPLAINT: Seizures. HISTORY OF PRESENT ILLNESS: This 61-year-old female was brought into the emergency room from the facility where she lives. The patient has some mental retardation and does have a history of seizure disorder. The sister was with her until 5:00 last night until which time the patient was doing fine. The patient during the night had about 4 seizures non-grand mal. The patient, however, subsequent to that was noted to have continued lethargy, was also noted to have a low-grade temperature of 100.2. The patient has had no reported symptoms of cough, congestion, any head congestion. Has had no problems of any changes in the urinary system or any nausea, vomiting, diarrhea. No reported skin rashes. The patient is actually more alert at the time of my evaluation in the emergency room. Prior to that, the physicians had given her some sedation with Ativan as she had some shakiness, tremors, but no seizures. The patient has had no further elevation of temperature. The blood pressure was markedly elevated in the range of 172/95, pulse of 95 and a temperature of 100 at the time of the ER initial evaluation. Subsequently the patient's blood pressure was reported to be up to 240/181. The patient's blood pressure was back down to 159/87 without any treatment. The patient had borderline hypoxia, which also has resolved. [place] this might all be related to postictal status. The ER physician did do a spinal tap. The fluid was crystal clear, one WBC and one RBC reported. The patient's CAT scan of the brain was unremarkable. The patient's chest x-ray did not reveal any infiltrates and the urine clean. On examination, otherwise, no other reported changes. Past medical history significant primarily for some mild to moderate mental retardation, however, the patient is still functional, still lives independent. She does work. The patient has a history of seizure disorder for which she follows with a neurologist. She has had some behavioral issues for which she sees a psychiatrist. There has been no recent changes in medication. The patient is on Lamictal and Trileptal with no change in dosage recently. The patient did have an episode of atrial fibrillation flutter especially flutter. This has been controlled in sinus rhythm. In the past, she has been noted to have hypernatremia secondary to use of medications such as hydrochlorothiazide and certain other medications for her behavioral issues. She, however, has no problem with hypernatremia any further. Past surgical history is negative for any major surgeries. PERSONAL HISTORY: Nonsmoker. No alcohol. ALLERGIES: None known. Medications at home include: 1. Lamictal 100 mg in the morning and 200 mg at 2:30 and 8:30. 2. She is on Geodon 80 mg b.i.d. 3. Verapamil 240 mg daily. 4. Zoloft 150 mg daily. 5. MiraLAX 17 grams daily. 6. Trileptal 600 mg at bedtime and Trileptal 300 mg in the morning. 7. Multivitamin daily. 8. Melatonin 3 mg at bedtime. 9. Ativan p.r.n. sublingual. 10. Lanoxin 0.125 mg b.i.d. 11. Aspirin 325 mg daily. 12. Tylenol 650 p.r.n. q.4. SOCIAL HISTORY: The patient lives independently in the community. She was in foster care setting for quite a long time. FAMILY MEDICAL HISTORY: Father in his 80s, he had history of lymphoma. Mother at about 94. She had history of ASHD. The patient has one sister 61 years of age in good health. Brother in his 60s in good health. He is a physician. TRAVEL HISTORY: Patient recently was on cruise. She had no infections during and subsequent to the cruise. This was about a month ago. REVIEW OF SYSTEMS: NEURO: The patient is arousable and does answer simple questions. Patient has no headaches or dizziness, presenting symptom of seizures, non-grand mal. PSYCH: No behavioral changes. Does have chronic behavioral issues, which are well controlled. CARDIAC: No chest pain, palpitations. Has had no further episodes of atrial flutter. GI: No reported nausea, vomiting, abdominal pain. No diarrhea. : No symptoms of dysuria, hematuria, recent urinary tract infection for which she had been treated and hospitalized, that was back on September 05. EXTREMITIES: Denies pain or edema. CONSTITUTIONAL: Low-grade temperature of 100.2 here, otherwise, no reported fever. No reported chills. SKIN: No rashes, except red yellow where she constantly itches. PHYSICAL EXAMINATION: Pleasant female, lethargic, but arousable. Does recognize who I am. Pupils are reactive. Ears reveal no drainage. Tympanic membranes intact. Oral cavity is moist. No tongue bite. Patient's dentition is fair. Neck reveals no JVD. No carotid bruits. No thyromegaly or any supraclavicular lymphadenopathy. There is no nuchal rigidity. Chest examination is clear to auscultation and percussion. The patient does have some pectus excavatum deformity. CARDIAC: Normal S1, S2 with no gallops. No murmurs. Regular rhythm. ABDOMEN: Soft, no palpable masses. Bowel sounds normal. No organomegaly. No tenderness at the McBurney or Escobar's point. Extremities reveal no edema. No tenderness. Good pulses both upper and lower extremities. NEUROLOGICAL: Lethargic, but arousable. recognizing sister and me. Moves both upper and lower extremities well with good strength. Plantars are equivocal bilaterally. Laboratory assessment was white count of 11.1, hemoglobin 14.7. Chemistries reveals normal electrolytes, BUN and creatinine. Glucose random 106. Calcium 10.6. Alkaline phosphatase 138. SGPT, SGOT normal. Urinalysis is clear. CSF Gram stain was negative. CSF glucose was 58. ASSESSMENT: 1. Breakthrough frequent seizures. 2. Accelerated hypertension. 3. History of atrial flutter. 4. History of mental retardation. 5. Doubt any clear infection. Suspect patient low-grade temperature was probably postictal. I will closely monitor though. The patient's blood culture and urine culture pending. Prognosis remains guarded. Patient's condition discussed with the ( ). Will have the neurologist evaluate. Meanwhile levels of Trileptal and Lamictal to be checked.
--- NOTE | 2016-10-09 19:15 | P.CNNES ---
History of Present Illness Consult date: 10/09/16 Reason for Consult: Patient admitted with breakthrough seizures and fever. History of Present Illness: This patient is a 61-year-old right-handed white female who is a long-standing history of underlying seizure disorder and developmental delay. Patient was and was doing fine yesterday according to her sister who provided medical history today. Apparently the sister was with her at about 5 PM last night at which time she was doing fine. Apparently at about 3 AM the staff had contacted the sister stating that the patient had 3 partial seizures. At 7 AM the sister went to check on her and apparently she had a fourth seizure. EMS was called and the patient was brought into the emergency room at [facility] for further evaluation. She was brought into the emergency room today for evaluation of breakthrough seizures. Patient was seen in the ER by Dr. Goodrich. She was sent for a computed tomography scan of the brain which was negative for any acute changes. Recheck of the patient revealed her to have uncontrolled hypertension as well as a fever. Her temperature was noted to be 100.2. The patient did appear to be postictal in the ER according to the sister. She was given some Ativan and apparently she has remained seizure- free. The patient is on antiepileptic treatment for her seizures and currently takes a combination of Lamictal and Trileptal. Levels were not checked in the ER however we have ordered stat levels to be done at this time. The patient is admitted to the hospital. She is resting comfortably. She still seems to have a low-grade temperature. She was started on Rocephin after being evaluated in the ER. She did undergo a lumbar puncture in the ER due to the combination of seizures and fever. Spinal fluid results came back negative for any evidence of meningitis. The CSF spinal fluid revealed RBC count of 1 and WBC count of 1. Gram stain was negative for any organisms. As noted the patient was started on IV Rocephin and admitted to the hospital. She is still running a low -grade temperature. Urine and blood cultures have been drawn and we're waiting those results. According to the sister the patient was doing fine and was able to take a cruise 2 weeks ago. She did not have any fevers or viral syndrome at that time. We have recommended to have this patient check for influenza A and B. As noted she still has slight fever upon admission. Patient is more awake and alert and does answer simple questions. We will continue her on her current dose of Lamictal and Trileptal. We have given her extra dose of both anticonvulsant medications today and we will recheck levels tomorrow morning. Case was discussed today at length with the patient's sister over the telephone. She was updated on her overall condition in neurological findings. We will continue close neurological follow-up at this patient during this admission. Review of Systems Constitutional: Denies chills, Denies fever Eyes: denies blurred vision, denies pain Ears, nose, mouth and throat: Denies headache, Denies sore throat Cardiovascular: Denies chest pain, Denies shortness of breath Respiratory: Denies cough Gastrointestinal: Denies abdominal pain, Denies diarrhea, Denies nausea, Denies vomiting Genitourinary: Denies dysuria, Denies hematuria Musculoskeletal: Denies myalgias Integumentary: Denies pruritus, Denies rash Neurological: Reports change in mentation, Reports seizures, Reports tremors, Denies numbness, Denies weakness Psychiatric: Denies anxiety, Denies depression Endocrine: Denies fatigue, Denies weight change Past Medical History Past Medical History: Atrial Fibrillation, Hypertension, Pneumonia, Seizure Disorder Additional Past Medical History / Comment(s): Vertigo, paroxysmal atrial fibrillation, moderate intellectual disability, SEPTEMBER 2016 UTI AND BACTEREMIA History of Any Multi-Drug Resistant Organisms: None Reported Past Surgical History: No Surgical Hx Reported Past Psychological History: Schizoaffective Disorder Additional Psychological History / Comment(s): OCD, auditory hallucinations, needs reassurance that she is ok. Smoking Status: Never smoker Past Alcohol Use History: None Reported Additional Past Alcohol Use History / Comment(s): Patient is a lifelong nonsmoker, no illicit drug use, alcohol use. Patient lives in her own apartment with a roommate. They have 24-hour care. There are no pets in the home. No recent travel. Past Drug Use History: None Reported - Past Family History Father Family Medical History: Cancer Mother Family Medical History: AFIB, Congestive Heart Failure (CHF) Medications and Allergies Home Medications Medication Instructions Recorded Confirmed Type Aspirin 325 mg PO DAILY@1700 02/13/14 10/09/16 History LORazepam [Ativan] 1 mg SL DAILY PRN 02/13/14 10/09/16 History Melatonin 3 mg PO HS 02/13/14 10/09/16 History Multivitamins, Thera [Multivitamin] 1 tab PO DAILY@1700 02/13/14 10/09/16 History OXcarbazepine [Trileptal] 300 mg PO BID@0800,1430 02/13/14 10/09/16 History OXcarbazepine [Trileptal] 600 mg PO HS 02/13/14 10/09/16 History Polyethylene Glycol 3350 [Miralax] 17 gm PO DAILY PRN 02/13/14 10/09/16 History Sertraline [Zoloft] 150 mg PO DAILY 02/13/14 10/09/16 History Verapamil HCl [Verapamil ER] 240 mg PO DAILY 02/13/14 10/09/16 History Ziprasidone [Geodon] 80 mg PO AC-BID@0700,1900 02/13/14 10/09/16 History lamoTRIgine [LaMICtal] 100 mg PO DAILY@0800 02/13/14 10/09/16 History lamoTRIgine [LaMICtal] 200 mg PO BID@1430,2030 02/13/14 10/09/16 History Digoxin [Lanoxin] 125 mcg PO BID 09/06/16 10/09/16 History Acetaminophen [Tylenol Arthritis] 650 mg PO Q6H PRN 10/09/16 10/09/16 History Clotrimazole [Lotrimin AF] 1 applic TOPICAL HS 10/09/16 10/09/16 History Allergies Allergy/AdvReac Type Severity Reaction Status Date / Time No Known Allergies Allergy Verified 10/09/16 08:03 Physical Examination - Vital Signs Vital Signs: Vital Signs Temp Pulse Pulse Resp BP BP Pulse Ox 10/09/16 17:30 100.2 F H 97 20 139/82 94 L 10/09/16 14:15 99 F 97 20 145/97 93 L 10/09/16 14:00 20 10/09/16 13:58 97.4 F L 99 18 159/87 96 Intake and Output 10/09/16 10/09/16 10/09/16 06:59 14:59 22:59 Other: Voiding Method Toilet # Voids 2 - Constitutional General appearance: average body habitus, cooperative - EENT EENT: PERRL, mucous membranes moist - Respiratory Respiratory: lungs clear, normal breath sounds - Cardiovascular Cardiovascular: normal S1, normal S2 Extremities: no peripheral edema bilaterally - Gastrointestinal Gastrointestinal: normoactive bowel sounds - Integumentary Integumentary: normal - Neurologic Cranial nerve examination: PERRL, EOMI, V1/V2/V3 grossly intact, face symmetric , tongue midline, intact gag reflex, intact corneal reflex, normal palatal elevation Speech examination: intact Sensorimotor examination: intact Detailed motor examination: grossly full strength in all extremities Motor examination - right side: 4/5: biceps, triceps, wrist flexion, wrist extension, child care counselor, hip flexors, knee extensors, dorsiflexion, toe extension (EHL) , plantarflexion Motor examination - left side: 4/5: biceps, triceps, wrist flexion, wrist extension, child care counselor, hip flexors, knee extensors, dorsiflexion, toe extension (EHL) , plantarflexion Detailed sensory examination: intact Reflex and gait examination: intact Reflexes: 1+: ankle, bicep, knee, tricep - Musculoskeletal Musculoskeletal: no pain - Psychiatric Psychiatric: mood/affect appropriate, cooperative Results - Laboratory Findings CBC and BMP: 10/09/16 08:30 10/09/16 08:30 Assessment and Plan (1) 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 Patient resides at a [facility] and apparently had a episode of 3 partial seizures at about 3 AM this morning. She had a fourth seizure at 7 AM this morning which prompted this sister who is her legal guardian to have her admitted to the emergency room. EMS was called to the home and the patient was brought into the ER at [facility]. She was seen in the ER by Dr. Goodrich. She was sent immediately for computed tomography scan of the brain which was negative for any acute changes. Patient spiked a temperature of 100.2 and a lumbar puncture was done in the ER. Spinal fluid results are as noted above. Spinal fluid was negative for acute bacterial meningitis. Patient does take 2 anticonvulsant medications namely Lamictal and Trileptal. We have ordered stat levels on both anticonvulsant medications. We' ve suggested 1 extra dose of Lamictal as well as one extra dose of Trileptal today. She'll be restarted on her normal dosage as she takes at home. We will recheck levels tomorrow morning. Spinal fluid results were reviewed and are negative for any evidence of bacterial or viral meningitis. We will continue to follow her progress closely. Would recommend to continue the patient on IV Rocephin until blood and urine cultures are available. Her overall prognosis at this time remains guarded. Case was discussed at length today with the patient's sister who is her legal guardian. All of her questions were answered. She is aware of her guarded condition. Time with Patient: Greater than 30
[2016-10-09] MEDS: DIGOXIN 125 MCG TAB PO SCH (20:04)
[2016-10-09] MEDS: MELATONIN 3 MG TABLET PO SCH (20:04)
[2016-10-09] MEDS: ZIPRASIDONE 80 MG CAP PO SCH (20:05)
[2016-10-10 06:51] LABS: Aty Lym Flag Slight; Basophils # (A) 0.1 k/uL (0-0.2); Basophils % (A) 1 %; CH 29.6; CHCM 32.8; Eosinophils # (A) 0.1 k/uL (0-0.7); Eosinophils % (A) 1 %; HCT 39.7 % (34.0-46.0); HDW 2.09; HGB 13.5 gm/dL (11.4-16.0); Luc # (Auto) 0.41; Luc % (Auto) 5; Lymphocytes # (A) 1.3 k/uL (1.0-4.8); Lymphocytes % (A) 15 %; MCH 30.7 pg (25.0-35.0); MCHC 33.9 g/dL (31.0-37.0); MCV 90.6 fL (80.0-100.0); Mean Platelet Volume 6.5; Monocytes # (A) 0.6 k/uL (0-1.0); Monocytes % (A) 7 %; Neutrophils # (A) 6.4 k/uL (1.3-7.7); Neutrophils % (A) 73 %; RBC 4.38 m/uL (3.80-5.40); WBC 8.8 k/uL (3.8-10.6); WBC (Perox) 9.37
[2016-10-10 07:12] LABS: ALT 27 U/L (9-52); AST 20 U/L (14-36); Alkaline Phosphatase 101 U/L (38-126); Anion Gap 7 mmol/L; Blood Urea Nitrogen 13 mg/dL (7-17); Calcium 9.8 mg/dL (8.4-10.2); Carbon Dioxide 28 mmol/L (22-30); Chloride 103 mmol/L (98-107); Glucose 101 mg/dL (74-99); Non-African American GFR(MDRD) 54 (>60 ml/min/1.73 sqM); Potassium 4.4 mmol/L (3.5-5.1); Sodium 138 mmol/L (137-145); Total Bilirubin 0.4 mg/dL (0.2-1.3); Total Protein 6.9 g/dL (6.3-8.2)
[2016-10-10] MEDS: ASPIRIN 325 MG TAB PO SCH (08:43)
[2016-10-10] MEDS: lamoTRIgine 100 MG TAB PO SCH ×3 (08:43→20:16)
[2016-10-10] MEDS: DIGOXIN 125 MCG TAB PO SCH ×2 (08:44→20:17)
[2016-10-10] MEDS: OXcarbazepine 300 MG TAB PO SCH ×3 (08:44→20:16)
[2016-10-10] MEDS: SERTRALINE 100 MG TAB PO SCH (08:44)
[2016-10-10] MEDS: VERAPAMIL SR 240 MG TABLET.ER PO SCH (08:45)
[2016-10-10] MEDS: ZIPRASIDONE 80 MG CAP PO SCH ×2 (08:46→20:16)
[2016-10-10] MEDS: ACETAMINOPHEN TAB 325 MG TAB PO PRN ×2 (08:49→18:58)
[2016-10-10] MEDS ORDERED: OXcarbazepine 300 MG TAB PO SCH (09:00)
--- NOTE | 2016-10-10 10:47 | P.PN ---
Subjective Principal diagnosis: Seizures This 61-year-old female was admitted to the hospital following at least 4 seizures though not grand mal patient had some altered mental status. He had due to spinal tap which was negative. Patient's CAT scan of the brain did not reveal any acute pathology. The patient gradually improved her mentation. She had a low-grade temperature for 100.2 did not seem to be septic and there was no clear source of infection. Patient was given Rocephin in the emergency room no further antibiotics are being continued. Patient feels fairly well this morning is awake and alert. Usual status. She does have fine tremors which is not uncommon. Patient has been seen by neurology. Awaiting results of Lamictal and Trileptal medication dosage to be adjusted. If patient remains stable today potential discharge home tomorrow REVIEW OF SYSTEMS: Neuro: Has a slight headache no dizziness no seizures Psych: Denies anxiety depression feels oriented. Cardiac: Denies chest pain and angina palpitations. Respiratory: Denies shortness of breath cough. GI: Denies nausea vomiting or abdominal pain. No diarrhea or constipation, no bowel movement yet. : Denies dysuria hematuria. Extremities: Denies pain. No edema. Skin: Intact. Constitutional: No fever, chills. Objective - Vital Signs Vital signs: Vital Signs Temp 98.1 F 10/10/16 10:38 Pulse 94 10/10/16 08:30 Resp 20 10/10/16 08:30 BP 138/89 10/10/16 08:30 Pulse Ox 95 10/10/16 08:30 Intake & Output 10/09/16 10/10/16 10/10/16 18:59 06:59 18:59 Output Total 600 Balance -600 Weight 75.3 kg Output: Urine 600 Other: Voiding Method Toilet Toilet Toilet # Voids 2 1 1 PHYSICAL EXAMINATION: Cooperative, at present in no acute distress. HEENT: Neck supple. No JVD. Chest: Clear to auscultation percussion. Cardiac: Normal S1-S2 no gallops no murmur . Abdomen: Soft bowel sounds present. Extremities: No edema no tenderness Neurologically: Awake, alert, oriented with well-coordinated movements. - Labs CBC & Chem 7: 10/10/16 06:37 10/10/16 06:37 Labs: Abnormal Lab Results - Last 24 Hours (Table) 10/10/16 Range/Units 06:37 Glucose 101 H (74-99) mg/dL Assessment and Plan Plan: ASSESSMENT: 1. Breakthrough seizures. 2. [Postictal status resolved]. 3. [Accelerated hypertension resolved]. 4. [History of atrial flutter]. 5. [History of mental retardation]. 6. [Postictal low-grade fever resolved]. PLAN: [Continue present medical regimen. No further antibiotics. Await results of the drug levels. Potential discharge home tomorrow if okay with neurology].
[2016-10-10] MEDS ORDERED: MULTIVITAMINS, THERA 1 EACH TAB PO SCH (12:00)
[2016-10-10] MEDS: MELATONIN 3 MG TABLET PO SCH (20:16)
--- NOTE | 2016-10-10 21:16 | P.PN ---
Subjective This patient is a 61-year-old female who was admitted to Hospital with for breakthrough seizures. Patient has a long history of underlying seizure disorder as well as developmental delay. She had been doing quite well up until recently when she experienced for seizures at her home. She was brought into the emergency room where she was found to have a fever. She underwent a lumbar puncture to rule out meningitis. Her spinal fluid results came back negative for any evidence of acute bacterial or viral meningitis. The patient has been afebrile today. She is slowly return to her normal baseline level of function. No further seizures have been reported. We are waiting her anticonvulsant blood levels to return from the laboratory today. Patient does seem to be more alert and oriented today and is following all commands. She appears to be near baseline level of function prior to her admission to hospital. Patient underwent laboratory testing for influenza which came back negative. She is afebrile today. Patient is being considered for possible discharge home tomorrow if she continues to do well. We will await the anticonvulsant blood levels to return from the laboratory. We will continue close neurological follow-up with the patient during this admission. Objective - Vital Signs Vital signs: Vital Signs Temp 97.3 F L 10/10/16 15:03 Pulse 65 10/10/16 15:03 Resp 16 10/10/16 16:00 BP 121/73 10/10/16 15:03 Pulse Ox 96 10/10/16 15:03 Intake & Output 10/10/16 10/10/16 10/11/16 06:59 18:59 06:59 Intake Total 360 Output Total 600 Balance -600 360 Weight 75.3 kg Intake: Oral 360 Output: Urine 600 Other: Voiding Method Toilet Toilet # Voids 1 1 1 # Bowel Movements 0 - Exam Physical examination: PHYSICAL EXAMINATION: Patient is resting comfortably in bed. VITAL SIGNS: Blood pressure is [121/73]. Heart rate is [65]. Respiration is [16] . Temperature is [97.3]. HEENT: Head is atraumatic, neck is supple, there were no carotid bruits. CHEST: Lungs are clear to auscultation and percussion. CARDIAC: S1, S2 normal rate and rhythm. There is no murmur. ABDOMEN: Soft and nontender. Bowel sounds are present. EXTREMITIES: There is no pedal edema. Peripheral pulses are present. Neurological examination: Patient's neurological examination is unchanged from yesterday. Patient is more awake and alert today. She appears to be near baseline level of function and is following all simple commands. 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 Patient resides at a retirement and apparently had a episode of 3 partial seizures at about 3 AM this morning. She had a fourth seizure at 7 AM this morning which prompted this sister who is her legal guardian to have her admitted to the emergency room. EMS was called to the home and the patient was brought into the ER at [facility]. She was seen in the ER by Dr. Goodrich. She was sent immediately for computed tomography scan of the brain which was negative for any acute changes. Patient spiked a temperature of 100.2 and a lumbar puncture was done in the ER. Spinal fluid results are as noted above. Spinal fluid was negative for acute bacterial meningitis. Patient does take 2 anticonvulsant medications namely Lamictal and Trileptal. We have ordered stat levels on both anticonvulsant medications. We' ve suggested 1 extra dose of Lamictal as well as one extra dose of Trileptal today. She'll be restarted on her normal dosage as she takes at home. We will recheck levels tomorrow morning. Spinal fluid results were reviewed and are negative for any evidence of bacterial or viral meningitis. We will continue to follow her progress closely. Her mental status shows improvement today and she is near baseline level of function. She has had no further seizures. We are still awaiting the results of her anticonvulsant blood levels from the laboratory. If she continues to do well tomorrow she may be considered for discharge to home. Her overall prognosis at this time remains guarded.
[2016-10-11 05:09] VITALS: PULSE 60
[2016-10-11] MEDS: lamoTRIgine 100 MG TAB PO SCH (08:12)
[2016-10-11] MEDS: ZIPRASIDONE 80 MG CAP PO SCH (08:12)
[2016-10-11] MEDS: VERAPAMIL SR 240 MG TABLET.ER PO SCH (08:12)
[2016-10-11] MEDS: OXcarbazepine 300 MG TAB PO SCH (08:12)
[2016-10-11] MEDS: SERTRALINE 100 MG TAB PO SCH (08:13)
[2016-10-11] MEDS: DIGOXIN 125 MCG TAB PO SCH (08:13)
[2016-10-11] MEDS: ASPIRIN 325 MG TAB PO SCH (08:13)
[2016-10-11 08:38] VITALS: BP 131/77; RESP 16; TEMP 97.4
[2016-10-11 15:09] LABS: Lamotrigine (Lamictal) 7.6 ug/mL (2.0-15.0)
[2016-10-11 15:09] LABS: Lamotrigine (Lamictal) 7.9 ug/mL (2.0-15.0)
--- NOTE | 2016-10-23 12:05 | P.DS ---
Providers Date of admission: 10/09/16 13:17 Attending physician: Oral Hernandez Primary care physician: Oral Hernandez Hospital Course: History present illness/hospital course. This 61-year-old female was brought in the emergency room after about 4 seizures , is a partial complex seizures. The patient had altered mentation subsequently. She was more lethargic and drowsy. Patient the evening before was in a stable condition with no evidence of any infective symptoms. Patient does have a history of seizure disorder and mental retardation. The patient's syndrome emergency room scar low-grade temperature 100.2. She had a CAT scan of the brain which did not reveal any changes. She had a spinal tap which was unremarkable. There was no evidence of infection. She was given Rocephin in the emergency room in case she had meningitis. However the fluid being negative patient was admitted to the hospital and felt to be a postictal status .there was no evidence of sepsis. Unfortunately drug levels are not available but the patient had been given an extra dose of medications upon the recommendation of the neurologist. Patient's condition remains stable and thus she was discharged home to continue medications at the same level as prior to admission. Subsequent drug levels are therapeutic range. Final diagnosis to include 1. Partial complex seizures 2. Postictal status 3. Mental retardation 4. Paroxysmal atrial fibrillation flutter Patient Condition at Discharge: Fair Plan - Discharge Summary Discharge Medication List Aspirin 325 mg PO DAILY@1700 02/13/14 [History] LORazepam [Ativan] 1 mg SL DAILY PRN 02/13/14 [History] Melatonin 3 mg PO HS 02/13/14 [History] Multivitamins, Thera [Multivitamin (formulary)] 1 tab PO DAILY@1700 02/13/14 [ History] OXcarbazepine [Trileptal] 300 mg PO BID@0800,1430 02/13/14 [History] OXcarbazepine [Trileptal] 600 mg PO HS 02/13/14 [History] Polyethylene Glycol 3350 [Miralax] 17 gm PO DAILY PRN 02/13/14 [History] Sertraline [Zoloft] 150 mg PO DAILY 02/13/14 [History] Verapamil HCl [Verapamil ER] 240 mg PO DAILY 02/13/14 [History] Ziprasidone [Geodon] 80 mg PO AC-BID@0700,1900 02/13/14 [History] lamoTRIgine [LaMICtal] 100 mg PO DAILY@0800 02/13/14 [History] lamoTRIgine [LaMICtal] 200 mg PO BID@1430,2030 02/13/14 [History] Digoxin [Lanoxin] 125 mcg PO BID 09/06/16 [History] Acetaminophen [Tylenol Arthritis] 650 mg PO Q6H PRN 10/09/16 [History] Clotrimazole [Lotrimin AF] 1 applic TOPICAL HS 10/09/16 [History] Acetaminophen Tab [Tylenol] 650 mg PO Q6HR PRN #0 tab 10/11/16 [Rx] Follow up Appointment(s)/Referral(s): Oral Hernandez MD [Primary Care Provider] - 1-2 days Discharge Disposition: HOME SELF-CARE
== END 2016-10-11 08:59 | disposition home or self-care (01) | DRG 100 ==
LOC: EC 07:51 → 6SEL 13:17
PROVIDERS: ADMIT Internal Medicine; ATTEND Internal Medicine
PROC: 009U3ZX Drainage of Spinal Canal, Percutaneous Approach, Diagnostic (ICD-10-PCS; principal; 2016-10-09)
DX: G40.209 Localization-related (focal) (partial) symptomatic epilepsy and epileptic syndromes with complex partial seizures, not intractable, without status epilepticus (principal); G93.40 Encephalopathy, unspecified; I48.92 Unspecified atrial flutter; F25.9 Schizoaffective disorder, unspecified; I48.0 Paroxysmal atrial fibrillation; I10 Essential (primary) hypertension; F42.9 Obsessive-compulsive disorder, unspecified; F71 Moderate intellectual disabilities; Z79.82 Long term (current) use of aspirin; Z79.899 Other long term (current) drug therapy
CPT/HCPCS: 36415; 51701; 62270; 70450; 71010; 80053; 80175; 80183; 81003; 82945; 83605; 85025; 87040; 87070; 87086; 87205; 87502; 89050; 93005; 96365; 96375; 99291

== ENCOUNTER → 2017-02-16 | Outpatient (CLI) | payer MEDICARE, OTHER ==
[2017-02-16 09:13] LABS: Hemoglobin A1C 5.8 % (4.2-6.1)
== END | disposition home or self-care (01) ==
LOC: LABWHC1 07:41
PROVIDERS: ATTEND Psychiatry & Neurology Psychiatry
DX: T50.905A Adverse effect of unspecified drugs, medicaments and biological substances, initial encounter (principal); Z79.899 Other long term (current) drug therapy
CPT/HCPCS: 36415; 83036

== ENCOUNTER → 2017-04-01 | Outpatient (CLI) | payer MEDICARE, OTHER ==
--- NOTE | 2017-04-01 09:18 | CT ---
EXAMINATION TYPE: CT brain wo con DATE OF EXAM: 04/01/2017 COMPARISON: 10/09/2016 INDICATION: Partial Epilepsy with impairment of consciousness DLP: 1121 mGycm, Automated exposure control for dose reduction was used. CONTRAST: None CT of the brain is performed utilizing 3 mm thick sections through the posterior fossa and 3 mm thick sections through the remaining calvarium. Study is performed within 24 hours of arrival to the hosp [facility]. No abnormal hyperdensity is present to suggest an acute intracranial hemorrhage. No mass lesion is evident. No acute infarcts are evident. Ventricles and sulci are appropriate for the patient age. Paranasal sinuses and mastoid air cells within the [id number] are clear. No state or degenerative change the left temporal mandibular joint. Hyperostosis frontalis internus i s present. IMPRESSIONS: 1. Normal intracranial CT brain
[2017-04-01 14:06] LABS: Hemoglobin A1C 5.7 % (4.2-6.1)
[2017-04-04 07:12] LABS: Lamotrigine (Lamictal) 8.8 ug/mL (2.0-15.0)
== END | disposition home or self-care (01) ==
LOC: RADCTMAIN 08:08 → EEVIPCON 08:20
PROVIDERS: ATTEND Psychiatry & Neurology Neurology
DX: G40.209 Localization-related (focal) (partial) symptomatic epilepsy and epileptic syndromes with complex partial seizures, not intractable, without status epilepticus (principal); T50.905A Adverse effect of unspecified drugs, medicaments and biological substances, initial encounter; Z79.899 Other long term (current) drug therapy
CPT/HCPCS: 36415; 70450; 80175; 80183; 81003; 83036; 84295; 99213

== ENCOUNTER → 2017-09-29 | Outpatient (CLI) | payer MEDICARE, OTHER ==
[2017-09-30 13:49] LABS: Lamotrigine (Lamictal) 6.1 ug/mL (2.0-15.0)
== END | disposition home or self-care (01) ==
LOC: LABWHC1 10:15
PROVIDERS: ATTEND Psychiatry & Neurology Neurology
DX: G40.209 Localization-related (focal) (partial) symptomatic epilepsy and epileptic syndromes with complex partial seizures, not intractable, without status epilepticus (principal)
CPT/HCPCS: 36415; 80175; 80183

== ENCOUNTER 2017-10-16 14:51 | Inpatient (IN) | payer MEDICARE, OTHER ==
[2017-10-16 15:02] LABS: Glucose,Whole Blood 141 mg/dL (75-99)
[2017-10-16] MEDS ORDERED: LORazepam 2 MG/ML INJ IV STA (15:23)
[2017-10-16] MEDS ORDERED: SODIUM CHLORIDE 0.9% 1,000 ML IV STA (15:23)
[2017-10-16] MEDS ORDERED: ACETAMINOPHEN IV (For NPO) 1,000 MG in EMPTY BAG 1 BAG IVPB STA (15:23)
[2017-10-16] MEDS ORDERED: KETOROLAC 30 MG/ML 1 ML VIAL IVP STA (15:23)
[2017-10-16] MEDS ORDERED: SODIUM CHLORIDE 0.9% 500 ML IV STA (15:23)
[2017-10-16 15:50] LABS: Anisocytosis Slight; HCT 33.6 % (34.0-46.0); HGB 11.4 gm/dL (11.4-16.0); MCV 79.6 fL (80.0-100.0); Mean Platelet Volume 6.4; Microcytosis Slight; Platelet Count 303 k/uL (150-450); RBC 4.23 m/uL (3.80-5.40)
--- NOTE | 2017-10-16 15:51 | ED ---
General Adult HPI - General Chief complaint: Seizure Stated complaint: Seizure Time Seen by Provider: 10/16/17 15:01 Source: patient, RN notes reviewed, old records reviewed Mode of arrival: EMS Limitations: no limitations - History of Present Illness Initial comments: This is a 8-year-old female to the ER for evaluation. Patient's today for evaluation status post seizure. Patient has history of seizures on multiple medications states taking medications as directed. Patient poor strain secondary to developmental delay. History obtained from EMS, patient's chart and family fever was noted also today. Patient's seizure was noted to be her normal seizure - Related Data Home Medications Medication Instructions Recorded Confirmed Aspirin 325 mg PO DAILY 02/13/14 10/16/17 Melatonin 3 mg PO HS 02/13/14 10/16/17 Multivitamins, Thera [Multivitamin 1 tab PO DAILY 02/13/14 10/16/17 (formulary)] OXcarbazepine [Trileptal] 300 mg PO TID 02/13/14 10/16/17 Polyethylene Glycol 3350 [Miralax] 17 gm PO DAILY PRN 02/13/14 10/16/17 Sertraline [Zoloft] 150 mg PO DAILY 02/13/14 10/16/17 Verapamil HCl [Verapamil ER] 240 mg PO DAILY 02/13/14 10/16/17 Ziprasidone [Geodon] 80 mg PO BID 02/13/14 10/16/17 lamoTRIgine [LaMICtal] 200 mg PO TID 02/13/14 10/16/17 Digoxin [Lanoxin] 125 mcg PO DAILY 09/06/16 10/16/17 Ciclopirox [Penlac] 1 applic TOPICAL DAILY 10/16/17 10/16/17 Allergies Allergy/AdvReac Type Severity Reaction Status Date / Time No Known Allergies Allergy Verified 10/16/17 16:56 Review of Systems ROS Statement: Those systems with pertinent positive or pertinent negative responses have been documented in the HPI. ROS Other: All systems not noted in ROS Statement are negative. Past Medical History Past Medical History: Atrial Fibrillation, Hypertension, Pneumonia, Seizure Disorder Additional Past Medical History / Comment(s): Vertigo, paroxysmal atrial fibrillation, moderate intellectual disability, SEPTEMBER 2016 UTI AND BACTEREMIA History of Any Multi-Drug Resistant Organisms: None Reported Past Surgical History: No Surgical Hx Reported Past Psychological History: Schizoaffective Disorder Smoking Status: Never smoker Past Alcohol Use History: None Reported Past Drug Use History: None Reported - Past Family History Father Family Medical History: Cancer Mother Family Medical History: AFIB, Congestive Heart Failure (CHF) General Exam Limitations: no limitations General appearance: alert, in no apparent distress Head exam: Present: atraumatic, normocephalic, normal inspection Eye exam: Present: normal appearance, PERRL, EOMI. Absent: scleral icterus, conjunctival injection, periorbital swelling ENT exam: Present: normal exam, mucous membranes moist, other (Lip laceration, tongue laceration) Neck exam: Present: normal inspection. Absent: tenderness, meningismus, lymphadenopathy Respiratory exam: Present: normal lung sounds bilaterally. Absent: respiratory distress, wheezes, rales, rhonchi, stridor Cardiovascular Exam: Present: normal rhythm, tachycardia, normal heart sounds. Absent: systolic murmur, diastolic murmur, rubs, gallop, clicks GI/Abdominal exam: Present: soft, normal bowel sounds. Absent: distended, tenderness, guarding, rebound, rigid Extremities exam: Present: normal inspection, full ROM, normal capillary refill. Absent: tenderness, pedal edema, joint swelling, calf tenderness Back exam: Present: normal inspection Neurological exam: Present: alert, oriented X3, CN II-XII intact Psychiatric exam: Present: normal affect, normal mood Skin exam: Present: warm, dry, intact, normal color. Absent: rash Course Vital Signs 10/16/17 10/16/17 10/16/17 14:53 17:05 17:07 Temperature 103.7 F H 100.8 F H Pulse Rate 115 H 97 Respiratory 18 20 Rate Blood Pressure 138/70 118/61 O2 Sat by Pulse 96 91 L 98 Oximetry - Reevaluation(s) Reevaluation #1: 10/16/17 17:54 A she with no recurrent seizure history, prior culture is reviewed EKG Findings - EKG Comments: EKG Findings:: EKG shows sinus tachycardia rate 108, CA 184, QRS 80, QTC 426 Medical Decision Making - Medical Decision Making 62-year-old female the ER for evaluation of seizure. Patient has history of seizures recurrent seizures, positive urinary tract infection with fever, will be admitted for IV antibiotics and monitoring of neurological status and seizure - Lab Data Result diagrams: 10/16/17 14:50 10/16/17 14:50 Lab Results 10/16/17 10/16/17 10/16/17 Range/Units 14:50 14:50 14:50 WBC 26.1 H* (3.8-10.6) k/uL RBC 4.23 (3.80-5.40) m/uL Hgb 11.4 (11.4-16.0) gm/dL Hct 33.6 L (34.0-46.0) % MCV 79.6 L (80.0-100.0) fL MCH 27.0 (25.0-35.0) pg MCHC 34.0 (31.0-37.0) g/dL RDW 17.0 H (11.5-15.5) % Plt Count 303 (150-450) k/uL Neutrophils % (Manual) 80 % Lymphocytes % (Manual) 11 % Monocytes % (Manual) 9 % Neutrophils # (Manual) 20.88 H (1.3-7.7) k/uL Lymphocytes # (Manual) 2.87 (1.0-4.8) k/uL Monocytes # (Manual) 2.35 H (0-1.0) k/uL Nucleated RBCs 0 (0-0) /100 WBC Manual Slide Review Performed Anisocytosis Slight Microcytosis Slight Sodium 131 L (137-145) mmol/L Potassium 4.4 (3.5-5.1) mmol/L Chloride 92 L (98-107) mmol/L Carbon Dioxide 23 (22-30) mmol/L Anion Gap 16 mmol/L BUN 24 H (7-17) mg/dL Creatinine 1.60 H (0.52-1.04) mg/dL Est GFR (CKD-EPI)AfAm 40 (>60 ml/min/1.73 sqM) Est GFR (CKD-EPI)NonAf 35 (>60 ml/min/1.73 sqM) Glucose 131 H (74-99) mg/dL POC Glucose (mg/dL) (75-99) mg/dL POC Glu Heater Engineer Helper ID Plasma Lactic Acid Arcadio 1.1 (0.7-2.0) mmol/L Calcium 9.9 (8.4-10.2) mg/dL Phosphorus 3.5 (2.5-4.5) mg/dL Magnesium 1.5 L (1.6-2.3) mg/dL Total Bilirubin 0.4 (0.2-1.3) mg/dL AST 16 (14-36) U/L ALT 18 (9-52) U/L Alkaline Phosphatase 130 H (38-126) U/L Total Protein 6.9 (6.3-8.2) g/dL Albumin 3.5 (3.5-5.0) g/dL Urine Color Urine Appearance (Clear) Urine pH (5.0-8.0) Ur Specific Henderson (1.001-1.035) Urine Protein (Negative) Urine Glucose (UA) (Negative) Urine Ketones (Negative) Urine Blood (Negative) Urine Nitrite (Negative) Urine Bilirubin (Negative) Urine Urobilinogen (<2.0) mg/dL Ur Leukocyte Esterase (Negative) Urine RBC (0-5) /hpf Urine WBC (0-5) /hpf Urine Bacteria (None) /hpf Salicylates <1.0 mg/dL Urine Opiates Screen (NotDetected) Ur Oxycodone Screen (NotDetected) Urine Methadone Screen (NotDetected) Ur Propoxyphene Screen (NotDetected) Acetaminophen <10.0 ug/mL Ur Barbiturates Screen (NotDetected) Phenytoin <3.0 ug/mL Valproic Acid <10.0 ug/mL Carbamazepine <3.0 ug/mL U Tricyclic Antidepress (NotDetected) Ur Phencyclidine Scrn (NotDetected) Ur Amphetamines Screen (NotDetected) U Methamphetamines Scrn (NotDetected) U Benzodiazepines Scrn (NotDetected) Laurie <0.2 mmol/L Urine Cocaine Screen (NotDetected) U Marijuana (THC) Screen (NotDetected) Serum Alcohol <10 mg/dL Influenza Type A RNA (Not Detectd) Influenza Type B (PCR) (Not Detectd) 10/16/17 10/16/17 10/16/17 Range/Units 14:57 15:45 15:45 WBC (3.8-10.6) k/uL RBC (3.80-5.40) m/uL Hgb (11.4-16.0) gm/dL Hct (34.0-46.0) % MCV (80.0-100.0) fL MCH (25.0-35.0) pg MCHC (31.0-37.0) g/dL RDW (11.5-15.5) % Plt Count (150-450) k/uL Neutrophils % (Manual) % Lymphocytes % (Manual) % Monocytes % (Manual) % Neutrophils # (Manual) (1.3-7.7) k/uL Lymphocytes # (Manual) (1.0-4.8) k/uL Monocytes # (Manual) (0-1.0) k/uL Nucleated RBCs (0-0) /100 WBC Manual Slide Review Anisocytosis Microcytosis Sodium (137-145) mmol/L Potassium (3.5-5.1) mmol/L Chloride (98-107) mmol/L Carbon Dioxide (22-30) mmol/L Anion Gap mmol/L BUN (7-17) mg/dL Creatinine (0.52-1.04) mg/dL Est GFR (CKD-EPI)AfAm (>60 ml/min/1.73 sqM) Est GFR (CKD-EPI)NonAf (>60 ml/min/1.73 sqM) Glucose (74-99) mg/dL POC Glucose (mg/dL) 141 H (75-99) mg/dL POC Glu Heater Engineer Helper ID Lizbeth Arreguin Plasma Lactic Acid Arcadio (0.7-2.0) mmol/L Calcium (8.4-10.2) mg/dL Phosphorus (2.5-4.5) mg/dL Magnesium (1.6-2.3) mg/dL Total Bilirubin (0.2-1.3) mg/dL AST (14-36) U/L ALT (9-52) U/L Alkaline Phosphatase (38-126) U/L Total Protein (6.3-8.2) g/dL Albumin (3.5-5.0) g/dL Urine Color Light Yellow Urine Appearance Clear (Clear) Urine pH 6.5 (5.0-8.0) Ur Specific Henderson 1.006 (1.001-1.035) Urine Protein Trace H (Negative) Urine Glucose (UA) Negative (Negative) Urine Ketones Negative (Negative) Urine Blood Trace H (Negative) Urine Nitrite Negative (Negative) Urine Bilirubin Negative (Negative) Urine Urobilinogen <2.0 (<2.0) mg/dL Ur Leukocyte Esterase Large H (Negative) Urine RBC 5 (0-5) /hpf Urine WBC 34 H (0-5) /hpf Urine Bacteria Rare H (None) /hpf Salicylates mg/dL Urine Opiates Screen Not Detected (NotDetected) Ur Oxycodone Screen Not Detected (NotDetected) Urine Methadone Screen Not Detected (NotDetected) Ur Propoxyphene Screen Not Detected (NotDetected) Acetaminophen ug/mL Ur Barbiturates Screen Not Detected (NotDetected) Phenytoin ug/mL Valproic Acid ug/mL Carbamazepine ug/mL U Tricyclic Antidepress Not Detected (NotDetected) Ur Phencyclidine Scrn Not Detected (NotDetected) Ur Amphetamines Screen Not Detected (NotDetected) U Methamphetamines Scrn Not Detected (NotDetected) U Benzodiazepines Scrn Not Detected (NotDetected) Laurie mmol/L Urine Cocaine Screen Not Detected (NotDetected) U Marijuana (THC) Screen Not Detected (NotDetected) Serum Alcohol mg/dL Influenza Type A RNA Not Detected (Not Detectd) Influenza Type B (PCR) Not Detected (Not Detectd) Disposition Clinical Impression: Urinary tract infection, Generalized seizure, Mentally challenged Disposition: ADMITTED IP TO THIS [facility] Condition: Fair Referrals: Oral Hernandez MD [Primary Care Provider] - 1-2 days
[2017-10-16 15:55] LABS: ALT 18 U/L (9-52); AST 16 U/L (14-36); Acetaminophen <10.0 ug/mL; Albumin 3.5 g/dL (3.5-5.0); Alcohol <10 mg/dL; Alkaline Phosphatase 130 U/L (38-126); Anion Gap 16 mmol/L; Blood Urea Nitrogen 24 mg/dL (7-17); Calcium 9.9 mg/dL (8.4-10.2); Carbamazepine (Tegretol) <3.0 ug/mL; Carbon Dioxide 23 mmol/L (22-30); Chloride 92 mmol/L (98-107); Glucose 131 mg/dL (74-99); Lithium <0.2 mmol/L; Magnesium 1.5 mg/dL (1.6-2.3); Phenytoin (Dilantin) <3.0 ug/mL; Phosphorus 3.5 mg/dL (2.5-4.5); Potassium 4.4 mmol/L (3.5-5.1); Salicylate <1.0 mg/dL; Sodium 131 mmol/L (137-145); Total Bilirubin 0.4 mg/dL (0.2-1.3); Total Protein 6.9 g/dL (6.3-8.2)
[2017-10-16 15:58] LABS: Valproic Acid (Depakene) <10.0 ug/mL
[2017-10-16 16:04] LABS: WBC 26.1 k/uL (3.8-10.6)
[2017-10-16 16:07] LABS: Appearance,Urine Clear (Clear); Bacteria,Urine Rare /hpf; Bilirubin,Urine Negative (Negative); Blood,Urine Trace (Negative); Color,Urine Light Yellow; Glucose,Urine (UA) Negative (Negative); Ketones,Urine Negative (Negative); Leukocyte Esterase,Urine Large (Negative); Nitrite,Urine Negative (Negative); PH, Urine 6.5 (5.0-8.0); Protein,Urine Trace (Negative); RBC,Urine 5 /hpf (0-5); Specific Gravity,Urine 1.006 (1.001-1.035); Urobilinogen,Urine <2.0 mg/dL (<2.0); WBC,Urine 34 /hpf (0-5)
[2017-10-16 16:17] LABS: Amphetamine Screen,Urine Not Detected (NotDetected); Barbiturate Screen,Urine Not Detected (NotDetected); Benzodiazepines Screen,Urine Not Detected (NotDetected); Cocaine Screen,Urine Not Detected (NotDetected); Methadone Screen, Urine Not Detected (NotDetected); Opiate Screen,Urine Not Detected (NotDetected); Oxycodone Screen, Urine Not Detected (NotDetected); Phencyclidine Screen,Urine Not Detected (NotDetected); Tricyclic Antidepressant,Urine Not Detected (NotDetected); Urn Cannabinoid Scrn Not Detected (NotDetected)
[2017-10-16 16:22] LABS: Lymphocytes # (M) 2.87 k/uL (1.0-4.8); Monocytes # (M) 2.35 k/uL (0-1.0); Neutrophils # (M) 20.88 k/uL (1.3-7.7); Neutrophils % (M) 80 %; Nucleated Red Blood Cells 0 /100 WBC (0-0); Total Cells Counted 100
--- NOTE | 2017-10-16 16:28 | XR ---
EXAMINATION TYPE: XR chest 2V DATE OF EXAM: 10/16/2017 COMPARISON: 10/09/2016 HISTORY: 62-year-old female with weakness TECHNIQUE: AP and lateral views FINDINGS: Prior limits of normal in size. Diffuse interstitial prominence. Some stranding density peripheral ri ght base. No dom consolidation or pleural effusion. IMPRESSION: Increased interstitial densities. Correlate for bronchitis, asthma, interstitial pneumonitis, or atyp ical pneumonias.
[2017-10-16] MEDS ORDERED: ASPIRIN 325 MG TAB PO STA (17:49)
[2017-10-16] MEDS ORDERED: AMPICILLIN-SULBACTAM 3 GM in SODIUM CHLORIDE 0.9% 100 ML IVPB STA (17:53)
[2017-10-16] MEDS: SODIUM CHLORIDE 0.9% 1,000 ML IV SCH (18:10)
[2017-10-16] MEDS ORDERED: ASPIRIN 300 MG SUPP RECTAL STA (18:14)
[2017-10-16 19:35] VITALS: BMI 26.0
[2017-10-16] MEDS ORDERED: POLYETHYLENE GLYCOL 3350 17 GM POWD.PACK PO PRN (20:35)
[2017-10-16] MEDS ORDERED: DIAZEPAM 5 MG/ML 2 ML INJ IVP PRN (20:37)
[2017-10-16] MEDS: MELATONIN 3 MG TABLET PO SCH (22:08)
[2017-10-16] MEDS: OXcarbazepine 300 MG TAB PO SCH (22:09)
[2017-10-16] MEDS: lamoTRIgine 100 MG TAB PO SCH (22:09)
[2017-10-16] MEDS: ZIPRASIDONE 80 MG CAP PO SCH (22:09)
[2017-10-17] MEDS: AMPICILLIN-SULBACTAM 3 GM in SODIUM CHLORIDE 0.9% 100 ML IVPB SCH ×3 (01:43→17:26)
[2017-10-17] MEDS: SODIUM CHLORIDE 0.9% 1,000 ML IV SCH ×3 (01:49→21:17)
[2017-10-17] MEDS: OXcarbazepine 300 MG TAB PO SCH ×3 (08:05→21:16)
[2017-10-17] MEDS: ZIPRASIDONE 80 MG CAP PO SCH ×2 (08:05→21:16)
[2017-10-17] MEDS: SERTRALINE 50 MG TAB PO SCH (08:05)
[2017-10-17] MEDS: lamoTRIgine 100 MG TAB PO SCH ×3 (08:05→21:16)
[2017-10-17] MEDS: ASPIRIN 325 MG TAB PO SCH (08:05)
[2017-10-17] MEDS: CLOTRIMAZOLE 1% CREAM 15 GM TUBE TOPICAL SCH (08:05)
[2017-10-17] MEDS: DIGOXIN 125 MCG TAB PO SCH (08:24)
[2017-10-17] MEDS: VERAPAMIL SR 240 MG TABLET.ER PO SCH (08:24)
[2017-10-17] MEDS: MULTIVITAMINS, THERA 1 EACH TAB PO SCH (13:16)
[2017-10-17] MEDS ORDERED: ASPIRIN 325 MG TAB PO SCH (17:52)
[2017-10-17] MEDS: MELATONIN 3 MG TABLET PO SCH (21:16)
--- NOTE | 2017-10-17 22:37 | HP ---
HISTORY AND PHYSICAL ATTENDING PHYSICIAN: Dr. Lv Hernandez. CHIEF COMPLAINT: Seizure. HISTORY OF PRESENT ILLNESS: This is a 62-year-old female who was brought in the emergency room because of having a seizure and having a temperature. The patient was seen by the ER physicians and noted to have the patient . The patient was brought in the emergency room. After evaluation in the ER, the patient is admitted to the hospital due to a high fever, high white count and suggestion of possible urinary tract infection. She had some leukocytosis with a negative nitrite. The patient has been known to have a previous urinary tract infection with multiple drug-resistant bacteria. This morning, at the time of my evaluation, patient is able to answer questions fairly well. She has history of mental retardation. The patient is fairly functional. PAST MEDICAL HISTORY: History of seizures for a long duration, history of paroxysmal atrial flutter. She has a history of behavioral disorders for which she sees a psychiatrist and fairly well controlled. The patient has history of flutter. However, the patient is not on any anticoagulation due to seizures, history of hyponatremia in the past secondary to use of hydrochlorothiazide. PAST SURGICAL HISTORY: Negative for any major surgeries. PERSONAL HISTORY: Nonsmoker. No alcohol. ALLERGIES: None known. MEDICATIONS: Include: 1. Trileptal 300 mg t.i.d. 2. Multivitamins 1 daily. 3. Melatonin daily. 4. Digoxin 125 mcg daily. 5. Aspirin 325 mg daily. 6. Lamictal 200 mg t.i.d. 7. Geodon 80 mg b.i.d. 8. Verapamil 240 mg daily. 9. Zoloft 150 mg daily. 10.MiraLAX 17 g daily. SOCIAL HISTORY: The patient is single, lives independently under the supervision. She has a sister who is her POA and helps make appropriate decisions for her. FAMILY MEDICAL HISTORY: Parents are . Father ASHD. Mother also had hypertensive cardiovascular disease. Sister in adequate health. She has 2 brothers in adequate health. REVIEW OF SYSTEMS: Neuro: The patient is arousable and responds appropriately. She has generalized shakiness. HEENT: Normocephalic. NECK: Supple. Pupils reactive. Nostrils clear. Oral cavity is moist. Dentition adequate. Neck reveals no JVD, carotid bruits or thyromegaly. CHEST: Clear to auscultation. Cardiac normal S1, S2 with no gallop. Systolic murmur 2/6 left sternal border. ABDOMEN: Soft. No palpable masses. Bowel sounds normal. No organomegaly. Extremities reveal trace edema. NEUROLOGIC: Awake, alert, oriented to person, moves both upper and lower extremities adequately. Plantars are equivocal. Skin reveals no rash. LABORATORY ASSESSMENT: With an EKG which reveals sinus tachycardia, Generalized nonspecific ST changes. Chest x-ray suggests interstitial densities, bronchitis, asthma, interstitial pneumonitis or atypical pneumonia. White count 26,100 with a left shift. Sodium 131, BUN 24, creatinine 1.6, glucose 131, alkaline phosphate is 130, magnesium 1.5. Urinalysis 34 WBC. negative. ASSESSMENT: 1. Fever, source probably urinary tract infection. 2. Seizures. 3. Breakthrough seizures. 4. History of seizure disorder. 5. History of mental retardation. 6. Acute renal failure. PLAN: The patient is admitted to the hospital. Continue IV hydration. Repeat electrolytes, BUN, creatinine tomorrow. CBC. Patient is on Unasyn. Her previous bacteria have been sensitive to Augmentin. We will continue present regimen. Monitor patient closely. Prognosis remains guarded. Continue antiseizure medications. MMODL / IJN: [id number] /
[2017-10-18] MEDS: AMPICILLIN-SULBACTAM 3 GM in SODIUM CHLORIDE 0.9% 100 ML IVPB SCH ×2 (04:55→09:26)
[2017-10-18 08:08] LABS: Anisocytosis Slight; HCT 29.8 % (34.0-46.0); MCH 26.7 pg (25.0-35.0); MCHC 31.4 g/dL (31.0-37.0); Mean Platelet Volume 6.8; Microcytosis Slight; Platelet Count 245 k/uL (150-450); RDW 17.6 % (11.5-15.5)
[2017-10-18] MEDS: SODIUM CHLORIDE 0.9% 1,000 ML IV SCH ×2 (08:15→21:14)
[2017-10-18] MEDS: CLOTRIMAZOLE 1% CREAM 15 GM TUBE TOPICAL SCH (08:19)
[2017-10-18] MEDS: ASPIRIN 325 MG TAB PO SCH (08:19)
[2017-10-18] MEDS: VERAPAMIL SR 240 MG TABLET.ER PO SCH (08:20)
[2017-10-18] MEDS: OXcarbazepine 300 MG TAB PO SCH ×3 (08:20→21:15)
[2017-10-18] MEDS: lamoTRIgine 100 MG TAB PO SCH ×3 (08:20→21:15)
[2017-10-18] MEDS: ZIPRASIDONE 80 MG CAP PO SCH ×2 (08:20→21:15)
[2017-10-18] MEDS: DIGOXIN 125 MCG TAB PO SCH (08:20)
[2017-10-18] MEDS: SERTRALINE 50 MG TAB PO SCH (08:20)
[2017-10-18 08:24] LABS: Albumin 2.6 g/dL (3.5-5.0); Calcium 9.4 mg/dL (8.4-10.2); Potassium 4.7 mmol/L (3.5-5.1); Total Bilirubin 0.2 mg/dL (0.2-1.3); Total Protein 5.7 g/dL (6.3-8.2)
[2017-10-18 08:29] LABS: HGB 9.4 gm/dL (11.4-16.0)
[2017-10-18 08:32] LABS: MCV 85.1 fL (80.0-100.0)
[2017-10-18 09:24] LABS: Band Neutrophils % 1 %; Eosinophils # (M) 0.34 k/uL (0-0.7); Lymphocytes # (M) 1.02 k/uL (1.0-4.8); Monocytes # (M) 1.02 k/uL (0-1.0); Neutrophils % (M) 85 %; Nucleated Red Blood Cells 0 /100 WBC (0-0); Total Cells Counted 100
[2017-10-18] MEDS: MULTIVITAMINS, THERA 1 EACH TAB PO SCH (13:47)
[2017-10-18] MEDS: PIPERACILLIN-TAZOBACTAM 3.375 GM in DEXTROSE/WATER 1 50ML.BAG IVPB SCH ×2 (18:26→23:23)
[2017-10-18] MEDS: MELATONIN 3 MG TABLET PO SCH (21:14)
--- NOTE | 2017-10-18 22:55 | PN ---
PROGRESS NOTE ATTENDING PHYSICIAN: Dr. Lv Hernandez. CHIEF COMPLAINT: Re-evaluation. HISTORY OF PRESENT ILLNESS: This 62-year-old female was admitted to the hospital with a seizure. The patient also noted to have evidence of urinary tract infection. She had a white count elevated to 26,000. Following admission she has been on Unasyn. The patient has been known to have previous E coli resistant to most antibiotics except intermediate sensitivity to Augmentin. The patient has been on Unasyn since admission. She has had no further fever. White count is coming down. She is feeling better. She has had no seizures. She has some chronic tremulousness of the right upper extremity. She also has some mental retardation but she is pleasant and cooperative. REVIEW OF SYSTEMS: NEURO: Denies any headaches or dizziness. Psych no anxiety. Cardiac no chest pain, angina, palpitations. Respiratory: Denies shortness of breath, cough. GI no nausea, vomiting, abdominal pain, diarrhea. Good appetite. : No symptoms of dysuria, hematuria. She had some dysuria at the time of admission. Extremities denies pain, edema. Constitutional: No fever or chills. PHYSICAL EXAMINATION: Pleasant female at present in no distress. VITAL SIGNS: The patient has been afebrile, pulse 89, respirations 18, blood pressure 120/70, pulse ox 95% on room air. HEENT: Normocephalic. Neck no JVD. CHEST: Clear to auscultation and percussion. Cardiac: Normal S1, S2 with no gallops, murmurs. ABDOMEN: Soft. Bowel sounds present. Extremities reveal no edema. NEUROLOGIC: Awake, alert, oriented to place, person. Moves both upper and lower extremities adequately. She does have some tremors of the right upper extremities. LABORATORY ASSESSMENT: White count was down to 17,100, hemoglobin is down to 9.4 with no evidence of bleeding. The patient's sodium is improved to 145, BUN down to 19, creatinine down to 1.27. Albumin is down to 2.6. Urine culture is E coli, multiple antibiotic resistant. ASSESSMENT: 1. Urinary tract infection. 2. Acute renal failure. 3. Seizure disorder. 4. Mental retardation. 5. History of intermittent atrial flutter. PLAN: The patient is stable, continue present medical regimen. Patient's condition discussed with the patient. Prognosis is guarded. The patient has been switched over to Zosyn to which she was sensitive to in the past. MMODL / IJN: [id number] /
[2017-10-19] MEDS: SODIUM CHLORIDE 0.9% 1,000 ML IV SCH ×3 (07:28→16:32)
[2017-10-19] MEDS: PIPERACILLIN-TAZOBACTAM 3.375 GM in DEXTROSE/WATER 1 50ML.BAG IVPB SCH ×2 (07:53→15:03)
[2017-10-19] MEDS: lamoTRIgine 100 MG TAB PO SCH ×3 (07:54→21:30)
[2017-10-19] MEDS: ASPIRIN 325 MG TAB PO SCH (07:54)
[2017-10-19] MEDS: DIGOXIN 125 MCG TAB PO SCH (07:54)
[2017-10-19] MEDS: OXcarbazepine 300 MG TAB PO SCH ×3 (07:54→21:30)
[2017-10-19] MEDS: SERTRALINE 50 MG TAB PO SCH (07:54)
[2017-10-19] MEDS: CLOTRIMAZOLE 1% CREAM 15 GM TUBE TOPICAL SCH (07:54)
[2017-10-19] MEDS: VERAPAMIL SR 240 MG TABLET.ER PO SCH (07:54)
[2017-10-19] MEDS: ZIPRASIDONE 80 MG CAP PO SCH ×2 (07:54→21:30)
[2017-10-19] MEDS: MULTIVITAMINS, THERA 1 EACH TAB PO SCH (15:03)
[2017-10-19] MEDS: MELATONIN 3 MG TABLET PO SCH (21:29)
[2017-10-19 21:41] LABS: Glucose,Whole Blood 93 mg/dL (75-99)
--- NOTE | 2017-10-19 23:27 | PN ---
PROGRESS NOTE DATE OF SERVICE: 10/19/2017 ATTENDING PHYSICIAN: Dr. Belkis Hernandez. CHIEF COMPLAINT: Reevaluation. HISTORY OF PRESENT ILLNESS: This is a 62-year-old female who was admitted to the hospital with fever, evidence suggestive of urinary tract infection, and breakthrough seizure. The patient is doing better. She has had no fever. White count yesterday was 17,600. We will repeat in the morning tomorrow. The patient is otherwise doing fairly well. REVIEW OF SYSTEMS: NEURO: No headaches or dizziness. PSYCH: No anxiety. CARDIAC: No chest pain. RESPIRATORY: No shortness of breath. GI: No nausea, vomiting, abdominal pain, diarrhea. : No symptoms of dysuria or hematuria. EXTREMITIES: No pain. CONSTITUTIONAL: No fevers or chills. PHYSICAL EXAMINATION: Pleasant female in no distress. VITALS: Temperature 98, pulse 91, respirations 20, blood pressure 128/76, pulse ox 95% room air. HEENT: Normocephalic. NECK: No JVD. CHEST: Clear to auscultation. CARDIAC: Normal S1, S2 with no gallops or murmurs. ABDOMEN: Soft. Bowel sounds present. EXTREMITIES: No edema. No tenderness. NEUROLOGICAL: Awake, alert, oriented to place and person. Moves both upper and lower extremities adequately. She has some constant tremor of the right upper extremity. LABORATORY ASSESSMENT: None new. ASSESSMENT: 1. Multi-organism resistant E coli in the urine. 2. Urinary tract infection. 3. Seizure. 4. Mental retardation. PLAN: Continue present medical regimen. Patient's condition discussed with the patient. Prognosis guarded. Potential discharge in the next 48 hours. MMODL / IJN: [id number] /
[2017-10-20] MEDS: PIPERACILLIN-TAZOBACTAM 3.375 GM in DEXTROSE/WATER 1 50ML.BAG IVPB SCH ×3 (00:33→16:20)
[2017-10-20 07:50] LABS: Anisocytosis Slight; Basophils # (A) 0.1 k/uL (0-0.2); Basophils % (A) 1 %; Eosinophils # (A) 0.4 k/uL (0-0.7); Eosinophils % (A) 4 %; HCT 29.9 % (34.0-46.0); HGB 9.1 gm/dL (11.4-16.0); Hypochromasia Slight; Lymphocytes # (A) 1.9 k/uL (1.0-4.8); Lymphocytes % (A) 20 %; MCH 26.2 pg (25.0-35.0); MCHC 30.4 g/dL (31.0-37.0); Mean Platelet Volume 6.8; Monocytes # (A) 0.5 k/uL (0-1.0); Monocytes % (A) 6 %; Neutrophils # (A) 6.3 k/uL (1.3-7.7); Neutrophils % (A) 66 %; Platelet Count 266 k/uL (150-450); RBC 3.48 m/uL (3.80-5.40); RDW 17.7 % (11.5-15.5); WBC 9.6 k/uL (3.8-10.6)
[2017-10-20 08:25] LABS: Calcium 9.6 mg/dL (8.4-10.2); Potassium 5.1 mmol/L (3.5-5.1)
[2017-10-20] MEDS: lamoTRIgine 100 MG TAB PO SCH ×3 (09:18→20:59)
[2017-10-20] MEDS: DIGOXIN 125 MCG TAB PO SCH (09:18)
[2017-10-20] MEDS: ASPIRIN 325 MG TAB PO SCH (09:18)
[2017-10-20] MEDS: SERTRALINE 50 MG TAB PO SCH (09:18)
[2017-10-20] MEDS: OXcarbazepine 300 MG TAB PO SCH ×3 (09:18→20:59)
[2017-10-20] MEDS: VERAPAMIL SR 240 MG TABLET.ER PO SCH (09:18)
[2017-10-20] MEDS: ZIPRASIDONE 80 MG CAP PO SCH ×2 (09:19→20:59)
[2017-10-20] MEDS: CLOTRIMAZOLE 1% CREAM 15 GM TUBE TOPICAL SCH (09:19)
[2017-10-20] MEDS: MULTIVITAMINS, THERA 1 EACH TAB PO SCH (11:32)
[2017-10-20] MEDS: ACETAMINOPHEN TAB 325 MG TAB PO PRN (11:32)
[2017-10-20] MEDS: MELATONIN 3 MG TABLET PO SCH (20:59)
--- NOTE | 2017-10-20 23:33 | PN ---
PROGRESS NOTE CHIEF COMPLAINT: Re-evaluation. HISTORY OF PRESENT ILLNESS: This 62-year-old female was admitted to the hospital with a fever and a seizure. The patient has a history of seizures. She was noted to have evidence suggestive of urinary tract infection. The patient has a previous history of htxse-[id number] organism. The patient has this bacteria persistent, periodically presenting with symptoms of urinary tract. Patient does have underlying history of mental retardation. At present the patient is doing well. She is alert, constantly drinking water. Her renal function has improved. REVIEW OF SYSTEMS: NEURO: No headaches, dizziness. PSYCH: No anxiety. CARDIAC: No chest pain, angina, palpitation. RESPIRATORY: Denies shortness of breath, cough. GI: Denies any nausea, vomiting, abdominal pain, diarrhea. : Denies symptoms of dysuria, hematuria. EXTREMITIES: No pain. CONSTITUTIONAL: No fever or chills. PHYSICAL EXAMINATION: Pleasant female in no distress. Vital signs revealed temperature 97, pulse 80, respirations 18, blood pressure 133/74, pulse ox 97% on room air. HEENT: Normocephalic. NECK: No JVD. CHEST: Clear to auscultation. CARDIAC: Normal S1, S2 with no gallop. Systolic murmur 2/6, left sternal border. ABDOMEN: Soft. Bowel sounds present. Extremities reveal no edema, no tenderness. NEUROLOGIC: Awake, alert, oriented with well-coordinated movements. LABORATORY ASSESSMENT: White count down to normal at 9.6, hemoglobin stable at 9.1, normal MCV, MCH. Platelets 266. Sodium 146, potassium 5.1, chloride 112, CO2 content 20, BUN 20, creatinine 1.32. ASSESSMENT: 1. Urinary tract infection. 2. Breakthrough seizure. 3. Wwoea-zmdd-lhhpzuzec organism. 4. Anemia, chronic. 5. Acute on chronic renal failure. 6. Chronic kidney disease III. PLAN: Patient is stable. Continue present medical regimen. Patient's condition discussed with the patient. Potential discharge home tomorrow. MMODL / IJN: [id number] /
[2017-10-21] MEDS: PIPERACILLIN-TAZOBACTAM 3.375 GM in DEXTROSE/WATER 1 50ML.BAG IVPB SCH ×2 (00:40→08:26)
[2017-10-21 07:09] VITALS: PULSE 77
[2017-10-21] MEDS: CLOTRIMAZOLE 1% CREAM 15 GM TUBE TOPICAL SCH (09:07)
[2017-10-21] MEDS: ASPIRIN 325 MG TAB PO SCH (09:07)
[2017-10-21] MEDS: DIGOXIN 125 MCG TAB PO SCH (09:08)
[2017-10-21] MEDS: lamoTRIgine 100 MG TAB PO SCH ×2 (09:08→17:55)
[2017-10-21] MEDS: OXcarbazepine 300 MG TAB PO SCH ×2 (09:09→17:55)
[2017-10-21] MEDS: SERTRALINE 50 MG TAB PO SCH (09:09)
[2017-10-21] MEDS: VERAPAMIL SR 240 MG TABLET.ER PO SCH (09:10)
[2017-10-21] MEDS: ZIPRASIDONE 80 MG CAP PO SCH (09:10)
[2017-10-21] MEDS: ACETAMINOPHEN TAB 325 MG TAB PO PRN (11:13)
--- NOTE | 2017-10-21 11:28 | US ---
EXAMINATION TYPE: US kidneys/renal and bladder DATE OF EXAM: 10/21/2017 COMPARISON: NONE CLINICAL HISTORY: uti/ ckd. EXAM MEASUREMENTS: Right Kidney: 8.5 x 4.0 x 4.0 cm Left Kidney: 9.9 x 5.1 x 4.5 cm Right Kidney: No hydronephrosis. Atrophic appearance. Cystic area visualized measuring 0.6 x 0.7 x 0. 7 cm Left Kidney: No hydronephrosis. Atrophic appearance. Multiple cystic areas visualized, largest measur ing 1.5 x 1.3 x 1.3 cm Bladder: wnl Bilateral Jets seen: Yes Poorly defined kidneys with marked increased cortical echogenicity are noted bilaterally. IMPRESSION: No hydronephrosis is seen bilaterally. Marked loss of normal cortical medullary differentiation is no lazara. Suspect fairly severe chronic medical renal disease. Advise nephrology referral.
[2017-10-21] MEDS: MULTIVITAMINS, THERA 1 EACH TAB PO SCH (14:07)
[2017-10-21 16:12] VITALS: BP 119/71; RESP 16; TEMP 98.6
--- NOTE | 2017-10-27 07:43 | CDI ---
Last Revision, June 2017 Documentation Clarification Form Date: 10/27/17 From: Marielos Irving Annie Quesada, Relay Engineer between 8:30 am & 5 pm David Admit Date: 10/16/2017 5:49:00 PM Patient Name: Valeria Pride Visit Number: [id number] Discharge Date: 10/21/17 ATTENTION: The Clinical Documentation Specialists (CDI) and [facility] Coding Staff appreciate your assistance in clarifying documentation. Please respond to the clarification below the line at the bottom and electronically sign. The CDI & [facility] Coding staff will review the response and follow-up if needed. Please note: Queries are made part of the Legal Health Record. If you have any questions, please contact the author of this message via ITS. Dr. Oral Hernandez The patient has documented sodium level of:131 on admission, rising to 146 on . History/Risk Factors: hyponatremia in the past secondary to use of hydrochlorothiazide, admitted w UTI & acute renal failure w breakthrough seizures. Treatment: IV sodium chloride 0.9% 1000 ml/ 999mls.hr/ changed to 500 ml 999 mls /hr/ changed to 1000ml 100 mls/hr In order to capture the severity of condition, please clarify if the condition signifies: Hyponatremia Hypernatremia SIADH Abnormal Lab Value Other condition, please specify Unable to determine Please continue to document in your progress notes and discharge summary in order to capture severity of illness and risk of mortality. Include clinical findings that support your diagnosis. MTDD
--- NOTE | 2017-10-29 12:53 | P.DS ---
Providers Date of admission: 10/16/17 17:49 Attending physician: Oral Hernandez Primary care physician: Oral [facility] Course: This 62-year-old female was admitted to the hospital with a seizure, fever and suggestion of urinary tract infection with sepsis. The patient had hyponatremia of sodium 131,due to acute on chronic renal failure due to urinary tract infection and dehydration. The patient also has a history of mental retardation with behavioral renal issues which are controlled with medications. Previous history of hyponatremia. At present the patient following admission improved with IV antibiotics. The patient has been known to have recurrent urinary tract infection with E. coli resistant to multiple antibiotics. She was treated with Unasyn switched to Zosyn. At discharge she was discharged on Augmentin. The patient had no further seizures. Her renal function improved to baseline of chronic kidney disease stage III. She does have a history of paroxysmal atrial flutter fib flutter for which she is not on anticoagulation due to the seizure activity. Remains guarded. She was stable at the time of discharge. Condition was discussed with the sister who is the POA. 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 Final diagnosis to include 1. Urinary tract infection with sepsis 2. Seizure disorder 3. Paroxysmal atrial fibrillation/flutter 4. Mental retardation with controlled behavior disorder 5. Acute on chronic renal failure 6. Chronic kidney disease stage III 7. Anemia chronic disease Patient Condition at Discharge: Fair Plan - Discharge Summary Discharge Rx Participant: No New Discharge Prescriptions: New Amoxicillin/Potassium Clav [Augmentin 500-125 Tablet] 1 tab PO Q12HR #20 tab Continue Polyethylene Glycol 3350 [Miralax] 17 gm PO DAILY PRN PRN Reason: Constipation Verapamil HCl [Verapamil ER] 240 mg PO DAILY Melatonin 3 mg PO HS Aspirin 325 mg PO DAILY Ziprasidone [Geodon] 80 mg PO BID Sertraline [Zoloft] 150 mg PO DAILY lamoTRIgine [LaMICtal] 200 mg PO TID OXcarbazepine [Trileptal] 300 mg PO TID Multivitamins, Thera [Multivitamin (formulary)] 1 tab PO DAILY Digoxin [Lanoxin] 125 mcg PO DAILY Ciclopirox [Penlac] 1 applic TOPICAL DAILY Discharge Medication List Aspirin 325 mg PO DAILY 02/13/14 [History] Melatonin 3 mg PO HS 02/13/14 [History] Multivitamins, Thera [Multivitamin (formulary)] 1 tab PO DAILY 02/13/14 [History ] OXcarbazepine [Trileptal] 300 mg PO TID 02/13/14 [History] Polyethylene Glycol 3350 [Miralax] 17 gm PO DAILY PRN 02/13/14 [History] Sertraline [Zoloft] 150 mg PO DAILY 02/13/14 [History] Verapamil HCl [Verapamil ER] 240 mg PO DAILY 02/13/14 [History] Ziprasidone [Geodon] 80 mg PO BID 02/13/14 [History] lamoTRIgine [LaMICtal] 200 mg PO TID 02/13/14 [History] Digoxin [Lanoxin] 125 mcg PO DAILY 09/06/16 [History] Ciclopirox [Penlac] 1 applic TOPICAL DAILY 10/16/17 [History] Amoxicillin/Potassium Clav [Augmentin 500-125 Tablet] 1 tab PO Q12HR #20 tab [Rx] Follow up Appointment(s)/Referral(s): Oral Hernandez MD [Primary Care Provider] - 1-2 days (office closed at time of discharge. please call tuesday to make appt.) Patient Instructions/Handouts: Amoxicillin/Clavulanate Potassium (By mouth) Discharge Disposition: HOME SELF-CARE
--- NOTE | 2017-11-01 08:29 | CDI ---
Documentation Clarification Form Date: 11/01/17 CDS/Legal Assistant Name: Marielos Villatoro Annie Quesada, Loom Changer between 8:30 am & 5 pm M-F Admit Date: 10/16/17 Discharge Date: 10/21/17 ATTENTION: The Clinical Documentation Specialists (CDI) and [facility] Coding Staff appreciate your assistance in clarifying documentation. Please respond to the clarification below the line at the bottom and electronically sign. The CDI & [facility] Coding staff will review the response and follow-up if needed. Please note: Queries are made part of the Legal Health Record. If you have any questions, please contact the author of this message via ITS. Dr. Oral Hernandez Atrial Flutter is documented in the H&P, 10/18 PN, and DS. History/Risk factors: Paroxysmal atrial fibrillation, UTI w sepsis, seizures, HTN w CKD EKG/telemetry: Sinus tachycardia Treatment: She is not on anticoagulation due to seizure activity In your professional opinion, in order to capture the severity of condition; can you please clarify the type of atrial flutter if known? Typical/Type I Atypical/Type II Other, please specify Unable to determine Please continue to document in your progress notes and discharge summary in order to capture severity of illness and risk of mortality. Include clinical findings that support your diagnosis. MTDD
--- NOTE | 2017-11-08 16:59 | CDI ---
Documentation Clarification Form Date: 11/08/17 CDS/End Finder Twisting Department Name: Marielos Villatoro Annie Quesada, Swimming Pool Installer And Servicer between 8:30 am & 5 pm M-F Admit Date: 10/16/17 Discharge Date: 10/21/17 ATTENTION: The Clinical Documentation Specialists (CDI) and [facility] Coding Staff appreciate your assistance in clarifying documentation. Please respond to the clarification below the line at the bottom and electronically sign. The CDI & [facility] Coding staff will review the response and follow-up if needed. Please note: Queries are made part of the Legal Health Record. If you have any questions, please contact the author of this message via ITS. Dr. Oral Hernandez Atrial Flutter is documented in the H&P, 10/18 PN, and DS. History/Risk factors: Paroxysmal atrial fibrillation, UTI w sepsis, seizures, HTN w CKD EKG/telemetry: Sinus tachycardia Treatment: She is not on anticoagulation due to seizure activity In your professional opinion, in order to capture the severity of condition; can you please clarify the type of atrial flutter if known? Typical/Type I Atypical/Type II Other, please specify Unable to determine Please continue to document in your progress notes and discharge summary in order to capture severity of illness and risk of mortality. Include clinical findings that support your diagnosis. MTDD
--- NOTE | 2017-11-28 11:20 | P.DS ---
Providers Date of admission: 10/16/17 17:49 Attending physician: Oral Hernandez Primary care physician: Oral Hernandez Hospital Course: Addendum to discharge summary: Patient has a history of atrial flutter1, intermittent in sinus rhythm at present hospitalization Patient Condition at Discharge: Fair Plan - Discharge Summary Discharge Rx Participant: No New Discharge Prescriptions: New Amoxicillin/Potassium Clav [Augmentin 500-125 Tablet] 1 tab PO Q12HR #20 tab Continue Polyethylene Glycol 3350 [Miralax] 17 gm PO DAILY PRN PRN Reason: Constipation Verapamil HCl [Verapamil ER] 240 mg PO DAILY Melatonin 3 mg PO HS Aspirin 325 mg PO DAILY Ziprasidone [Geodon] 80 mg PO BID Sertraline [Zoloft] 150 mg PO DAILY lamoTRIgine [LaMICtal] 200 mg PO TID OXcarbazepine [Trileptal] 300 mg PO TID Multivitamins, Thera [Multivitamin (formulary)] 1 tab PO DAILY Digoxin [Lanoxin] 125 mcg PO DAILY Ciclopirox [Penlac] 1 applic TOPICAL DAILY Discharge Medication List Aspirin 325 mg PO DAILY 02/13/14 [History] Melatonin 3 mg PO HS 02/13/14 [History] Multivitamins, Thera [Multivitamin (formulary)] 1 tab PO DAILY 02/13/14 [History ] OXcarbazepine [Trileptal] 300 mg PO TID 02/13/14 [History] Polyethylene Glycol 3350 [Miralax] 17 gm PO DAILY PRN 02/13/14 [History] Sertraline [Zoloft] 150 mg PO DAILY 02/13/14 [History] Verapamil HCl [Verapamil ER] 240 mg PO DAILY 02/13/14 [History] Ziprasidone [Geodon] 80 mg PO BID 02/13/14 [History] lamoTRIgine [LaMICtal] 200 mg PO TID 02/13/14 [History] Digoxin [Lanoxin] 125 mcg PO DAILY 09/06/16 [History] Ciclopirox [Penlac] 1 applic TOPICAL DAILY 10/16/17 [History] Amoxicillin/Potassium Clav [Augmentin 500-125 Tablet] 1 tab PO Q12HR #20 tab [Rx] Follow up Appointment(s)/Referral(s): Oral Hernandez MD [Primary Care Provider] - 1-2 days (office closed at time of discharge. please call tuesday to make appt.) Patient Instructions/Handouts: Amoxicillin/Clavulanate Potassium (By mouth) Discharge Disposition: HOME SELF-CARE
== END 2017-10-21 18:25 | disposition home or self-care (01) | DRG 872 ==
LOC: EC 14:51 → 5MS5E 17:49 → 5ONC 19:13
PROVIDERS: ADMIT Internal Medicine; ATTEND Internal Medicine
DX: A41.9 Sepsis, unspecified organism (principal); N17.9 Acute kidney failure, unspecified; E87.1 Hypo-osmolality and hyponatremia; N39.0 Urinary tract infection, site not specified; I48.3 Typical atrial flutter; F25.9 Schizoaffective disorder, unspecified; N18.3 Chronic kidney disease, stage 3 (moderate); I48.0 Paroxysmal atrial fibrillation; E86.0 Dehydration; G40.909 Epilepsy, unspecified, not intractable, without status epilepticus; D63.8 Anemia in other chronic diseases classified elsewhere; D64.9 Anemia, unspecified; B96.20 Unspecified Escherichia coli [E. coli] as the cause of diseases classified elsewhere; Z16.24 Resistance to multiple antibiotics; Z16.12 Extended spectrum beta lactamase (ESBL) resistance; I12.9 Hypertensive chronic kidney disease with stage 1 through stage 4 chronic kidney disease, or unspecified chronic kidney disease; F71 Moderate intellectual disabilities; F89 Unspecified disorder of psychological development; Z79.82 Long term (current) use of aspirin; Z79.899 Other long term (current) drug therapy; Z87.01 Personal history of pneumonia (recurrent); Z87.440 Personal history of urinary (tract) infections; Z82.49 Family history of ischemic heart disease and other diseases of the circulatory system
CPT/HCPCS: 36415; 71046; 76770; 80048; 80053; 80156; 80164; 80178; 80185; 80306; 80320; 81001; 83520; 83605; 83735; 84100; 85025; 87040; 87077; 87086; 87186; 87502; 93005; 96365; 96367; 96375; 99285

== ENCOUNTER 2018-01-19 19:04 | Inpatient (IN) | payer MEDICARE, OTHER ==
[2018-01-19] MEDS ORDERED: SODIUM CHLORIDE 0.9% 1,000 ML IV STA (19:20)
--- NOTE | 2018-01-19 19:24 | ED ---
General Adult HPI - General Chief complaint: Seizure Stated complaint: seizure Time Seen by Provider: 01/19/18 19:19 Source: patient, EMS Mode of arrival: EMS Limitations: no limitations - History of Present Illness Initial comments: Valeria is a 62-year-old female with a complicated medical history significant for seizure disorder. The patient is brought to the ED today via EMS for evaluation of a head injury after a seizure. Caregiver bedside states that the patient has a seizure disorder, has intermittent seizures and seizures tend to be more frequent during the hot months as her seizures seem to be exacerbated by heat. Patient reportedly had a seizure today while standing and fell backwards striking the back of her head. Patient was complaining of pain in her head and 911 was called for transport. The caregiver at bedside the patient is up-to-date on all vaccinations including tetanus. Upon my initial evaluation the patient began to actively seize and was unable to provide further history. - Related Data Home Medications Medication Instructions Recorded Confirmed Aspirin 325 mg PO DAILY@169902/13/14 01/19/18 Multivitamins, Thera [Multivitamin 1 tab PO DAILY@169902/13/14 01/19/18 (formulary)] OXcarbazepine [Trileptal] 300 mg PO TID@02/13/14 01/19/18 Polyethylene Glycol 3350 [Miralax] 17 gm PO DAILY@142902/13/14 01/19/18 Sertraline [Zoloft] 150 mg PO DAILY@69902/13/14 01/19/18 Verapamil HCl [Verapamil ER] 240 mg PO DAILY@69902/13/14 01/19/18 Ziprasidone [Geodon] 80 mg PO BID@02/13/14 01/19/18 lamoTRIgine [LaMICtal] 200 mg PO BID@02/13/14 01/19/18 Digoxin [Lanoxin] 125 mcg PO BID@09/06/16 01/19/18 Clotrimazole [Clotrimazole AF] 1 applic TOPICAL HS@199901/19/18 01/19/18 Cranberry Fruit Extract [Cranberry] 1,000 mg PO DAILY@169901/19/18 01/19/18 LORazepam [Ativan] 0.5 mg PO BID PRN 01/19/18 01/19/18 Nitrofurantoin Macrocrystal 100 mg PO BID 01/19/18 01/19/18 [Macrodantin] lamoTRIgine [LaMICtal] 50 mg PO DAILY@0700 01/19/18 01/19/18 Allergies Allergy/AdvReac Type Severity Reaction Status Date / Time No Known Allergies Allergy Verified 01/19/18 19:37 Review of Systems ROS Statement: Those systems with pertinent positive or pertinent negative responses have been documented in the HPI. ROS Other: All systems not noted in ROS Statement are negative. Respiratory: Denies: cough Gastrointestinal: Denies: nausea, vomiting Skin: Reports: other (wound to posterior scalp) Neurological: Reports: other (seizure) Hematological/Lymphatic: Denies: easy bleeding, easy bruising Past Medical History Past Medical History: Atrial Fibrillation, Hypertension, Pneumonia, Seizure Disorder Additional Past Medical History / Comment(s): Vertigo, paroxysmal atrial fibrillation, moderate intellectual disability, SEPTEMBER 2016 UTI AND BACTEREMIA History of Any Multi-Drug Resistant Organisms: ESBL Date of last positivie culture/infection: 10/18/17 MDRO Source:: urine - E coli ESBL Past Surgical History: No Surgical Hx Reported Past Psychological History: Schizoaffective Disorder Smoking Status: Never smoker Past Alcohol Use History: None Reported Past Drug Use History: None Reported - Past Family History Father Family Medical History: Cancer Additional Family Medical History / Comment(s): lymphoma Mother Family Medical History: AFIB, Congestive Heart Failure (CHF) General Exam Limitations: no limitations General appearance: alert, other (Patient began to seize upon initial evaluation ,) Head exam: Present: normocephalic, other (Small laceration of the posterior scalp) Eye exam: Present: PERRL ENT exam: Present: mucous membranes moist Neck exam: Present: other (Cervical collar in place) Respiratory exam: Absent: respiratory distress Cardiovascular Exam: Present: regular rate GI/Abdominal exam: Absent: soft, distended Extremities exam: Present: full ROM Back exam: Present: normal inspection Neurological exam: Present: alert, other (Tonic-clonic seizure upon initial evaluation) Skin exam: Present: warm, dry Course Vital Signs 01/19/18 19:04 Temperature 97.9 F Pulse Rate 96 Respiratory 16 Rate Blood Pressure 135/91 O2 Sat by Pulse 95 Oximetry - Reevaluation(s) Reevaluation #1: She was reevaluated, is resting comfortably, she does not recall events leading up to hospitalization. She is able to state her full name. 01/19/18 21:04 Procedures - Laceration Laceration #1 Consent Obtained: verbal consent Time Out Performed: Yes Site: scalp Description: linear Depth: simple, single layer Size of Sutures: other (Stable) Number of Sutures: 2 Patient Tolerated Procedure: well Medical Decision Making - Medical Decision Making The patient was seen and evaluated, history was obtained from caregiver as well as review of medical record she has a known seizure history, had a witnessed seizure today and struck her head on the ground, has a small laceration to posterior scalp. In addition the patient had a second tonic-clonic seizure upon arrival. IV Ativan was given with resolution of the seizure. Patient was transported to computed tomography scan. CT brain and cervical spine reveal no acute injuries Labs reviewed, no significant abnormalities Patient care was discussed with Dr. Diane who is covering for patient's PCP Dr. Hernandez. He accepts the admission for multiple seizures and requests Dr. García be consulted. Patient no further seizures while in the emergency department, she became awake and was able to state her name and identify she was in the hospital. She was uncertain of events leading up to hospitalization. - Lab Data Result diagrams: 01/19/18 19:30 01/19/18 19:30 Lab Results 01/19/18 01/19/18 01/19/18 Range/Units 19:30 19:30 19:30 WBC 14.0 H (3.8-10.6) k/uL RBC 4.14 (3.80-5.40) m/uL Hgb 11.7 (11.4-16.0) gm/dL Hct 34.9 (34.0-46.0) % MCV 84.2 (80.0-100.0) fL MCH 28.3 (25.0-35.0) pg MCHC 33.6 (31.0-37.0) g/dL RDW 14.2 (11.5-15.5) % Plt Count 337 (150-450) k/uL Neutrophils % 76 % Lymphocytes % 12 % Monocytes % 7 % Eosinophils % 1 % Basophils % 1 % Neutrophils # 10.6 H (1.3-7.7) k/uL Lymphocytes # 1.7 (1.0-4.8) k/uL Monocytes # 1.0 (0-1.0) k/uL Eosinophils # 0.1 (0-0.7) k/uL Basophils # 0.1 (0-0.2) k/uL PT (9.0-12.0) sec INR (<1.2) APTT (22.0-30.0) sec Sodium 134 L (137-145) mmol/L Potassium 4.4 (3.5-5.1) mmol/L Chloride 98 (98-107) mmol/L Carbon Dioxide 26 (22-30) mmol/L Anion Gap 10 mmol/L BUN 24 H (7-17) mg/dL Creatinine 1.30 H (0.52-1.04) mg/dL Est GFR (CKD-EPI)AfAm 52 (>60 ml/min/1.73 sqM) Est GFR (CKD-EPI)NonAf 45 (>60 ml/min/1.73 sqM) Glucose 92 (74-99) mg/dL Plasma Lactic Acid Arcadio (0.7-2.0) mmol/L Calcium 10.0 (8.4-10.2) mg/dL Total Bilirubin 0.1 L (0.2-1.3) mg/dL AST 20 (14-36) U/L ALT 31 (9-52) U/L Alkaline Phosphatase 150 H (38-126) U/L Total Creatine Kinase 37 (30-135) U/L CK-MB (CK-2) 0.7 (0.0-2.4) ng/mL CK-MB (CK-2) Rel Index 1.9 Troponin I <0.012 (0.000-0.034) ng/mL Total Protein 6.7 (6.3-8.2) g/dL Albumin 3.7 (3.5-5.0) g/dL Digoxin 1.2 ng/mL Serum Alcohol <10 mg/dL Blood Type Blood Type Recheck Antibody Screen Spec Expiration Date 01/19/18 01/19/18 01/19/18 Range/Units 19:30 19:30 19:30 WBC (3.8-10.6) k/uL RBC (3.80-5.40) m/uL Hgb (11.4-16.0) gm/dL Hct (34.0-46.0) % MCV (80.0-100.0) fL MCH (25.0-35.0) pg MCHC (31.0-37.0) g/dL RDW (11.5-15.5) % Plt Count (150-450) k/uL Neutrophils % % Lymphocytes % % Monocytes % % Eosinophils % % Basophils % % Neutrophils # (1.3-7.7) k/uL Lymphocytes # (1.0-4.8) k/uL Monocytes # (0-1.0) k/uL Eosinophils # (0-0.7) k/uL Basophils # (0-0.2) k/uL PT 10.0 (9.0-12.0) sec INR 1.0 (<1.2) APTT 22.6 (22.0-30.0) sec Sodium (137-145) mmol/L Potassium (3.5-5.1) mmol/L Chloride (98-107) mmol/L Carbon Dioxide (22-30) mmol/L Anion Gap mmol/L BUN (7-17) mg/dL Creatinine (0.52-1.04) mg/dL Est GFR (CKD-EPI)AfAm (>60 ml/min/1.73 sqM) Est GFR (CKD-EPI)NonAf (>60 ml/min/1.73 sqM) Glucose (74-99) mg/dL Plasma Lactic Acid Arcadio 1.6 (0.7-2.0) mmol/L Calcium (8.4-10.2) mg/dL Total Bilirubin (0.2-1.3) mg/dL AST (14-36) U/L ALT (9-52) U/L Alkaline Phosphatase (38-126) U/L Total Creatine Kinase (30-135) U/L CK-MB (CK-2) (0.0-2.4) ng/mL CK-MB (CK-2) Rel Index Troponin I (0.000-0.034) ng/mL Total Protein (6.3-8.2) g/dL Albumin (3.5-5.0) g/dL Digoxin ng/mL Serum Alcohol mg/dL Blood Type O Positive Blood Type Recheck No Antibody Screen NEGATIVE Spec Expiration Date 01/22/20182329 Disposition Clinical Impression: Epileptic seizure, Altered mental status Disposition: ADMITTED IP TO THIS [facility] Condition: Good Referrals: Oral Hernandez MD [Primary Care Provider] - 1-2 days Time of Disposition: 21:56 Decision Time: 21:56
[2018-01-19] MEDS ORDERED: LORazepam 2 MG/ML INJ IV STA ×2 (19:34)
[2018-01-19 20:01] LABS: Partial Thromboplastin Time 22.6 sec (22.0-30.0)
[2018-01-19 20:20] LABS: Creatine Kinase 37 U/L (30-135)
[2018-01-19 20:22] LABS: ALT 31 U/L (9-52); AST 20 U/L (14-36); Albumin 3.7 g/dL (3.5-5.0); Alcohol <10 mg/dL; Alkaline Phosphatase 150 U/L (38-126); Anion Gap 10 mmol/L; Blood Urea Nitrogen 24 mg/dL (7-17); Carbon Dioxide 26 mmol/L (22-30); Chloride 98 mmol/L (98-107); Digoxin 1.2 ng/mL; Glucose 92 mg/dL (74-99); Potassium 4.4 mmol/L (3.5-5.1); Sodium 134 mmol/L (137-145); Total Bilirubin 0.1 mg/dL (0.2-1.3); Total Protein 6.7 g/dL (6.3-8.2)
[2018-01-19 20:32] LABS: Creatine Kinase MB 0.7 ng/mL (0.0-2.4); Troponin I <0.012 ng/mL (0.000-0.034)
--- NOTE | 2018-01-19 20:42 | CT ---
EXAMINATION TYPE: CT brain jon cho DATE OF EXAM: 01/19/2018 COMPARISON: CT brain 04/01/2017 HISTORY: Seizure with fall and head injury neck pain CT DLP: 1271.9 mGycm Automated exposure control for dose reduction was used. TECHNIQUE: CT scan of the head and cervical spine are performed without contrast. FINDINGS: Ventricles have normal size. There is no mass effect nor midline shift. There is no sign of intracranial hemorrhage. The calvarium is intact. There are spondylotic changes in the cervical sp ine with mild cervical kyphotic curvature. Facet joints are intact. There is hypertrophic facet arthr opathy. The skull base is intact. There is moderate uncovertebral spurring with neural foraminal impi ngement on the left side at C5-6. IMPRESSION: Negative CT scan of the brain. No acute intracranial abnormality. Spondylotic changes in the cervical spine. No fracture.
[2018-01-19 20:44] LABS: Basophils # (A) 0.1 k/uL (0-0.2); Basophils % (A) 1 %; Eosinophils # (A) 0.1 k/uL (0-0.7); Eosinophils % (A) 1 %; HCT 34.9 % (34.0-46.0); HGB 11.7 gm/dL (11.4-16.0); Lymphocytes # (A) 1.7 k/uL (1.0-4.8); Lymphocytes % (A) 12 %; MCH 28.3 pg (25.0-35.0); MCHC 33.6 g/dL (31.0-37.0); MCV 84.2 fL (80.0-100.0); Mean Platelet Volume 6.6; Monocytes % (A) 7 %; Neutrophils # (A) 10.6 k/uL (1.3-7.7); Neutrophils % (A) 76 %; Platelet Count 337 k/uL (150-450); RBC 4.14 m/uL (3.80-5.40); RDW 14.2 % (11.5-15.5)
[2018-01-19] MEDS ORDERED: cefTRIAXone IN SWFI 1,000 MG/10 ML SYRINGE IVP STA (21:22)
[2018-01-19] MEDS ORDERED: NALOXONE 0.4 MG/ML 1 ML VIAL IV PRN (21:34)
[2018-01-19] MEDS ORDERED: LORazepam 0.5 MG TAB PO PRN (21:37)
[2018-01-19 22:21] LABS: Appearance,Urine Clear (Clear); Bacteria,Urine Occasional /hpf; Bilirubin,Urine Negative (Negative); Blood,Urine Trace (Negative); Color,Urine Colorless; Glucose,Urine (UA) Negative (Negative); Ketones,Urine Negative (Negative); Leukocyte Esterase,Urine Large (Negative); Mucus,Urine Rare /hpf; Nitrite,Urine Positive (Negative); Protein,Urine Negative (Negative); RBC,Urine 2 /hpf (0-5); Specific Gravity,Urine 1.003 (1.001-1.035); Urobilinogen,Urine <2.0 mg/dL (<2.0); WBC,Urine 10 /hpf (0-5)
[2018-01-19 22:29] LABS: Amphetamine Screen,Urine Not Detected (NotDetected); Barbiturate Screen,Urine Not Detected (NotDetected); Benzodiazepines Screen,Urine Not Detected (NotDetected); Cocaine Screen,Urine Not Detected (NotDetected); Methadone Screen, Urine Not Detected (NotDetected); Opiate Screen,Urine Not Detected (NotDetected); Oxycodone Screen, Urine Not Detected (NotDetected); Phencyclidine Screen,Urine Not Detected (NotDetected); Tricyclic Antidepressant,Urine Not Detected (NotDetected); Urn Cannabinoid Scrn Not Detected (NotDetected)
[2018-01-19 22:52] VITALS: BMI 24.9
[2018-01-20] MEDS ORDERED: LORazepam 2 MG/ML INJ IM PRN (05:00)
[2018-01-20] MEDS: SODIUM CHLORIDE 0.9% 1,000 ML IV SCH (05:09)
[2018-01-20] MEDS: lamoTRIgine 25 MG TAB PO SCH (07:50)
[2018-01-20] MEDS: VERAPAMIL SR 240 MG TABLET.ER PO SCH (07:51)
[2018-01-20] MEDS: DIGOXIN 125 MCG TAB PO SCH ×2 (07:51→19:42)
[2018-01-20] MEDS: SERTRALINE 100 MG TAB PO SCH (07:51)
[2018-01-20] MEDS: ZIPRASIDONE 80 MG CAP PO SCH ×2 (07:51→19:42)
[2018-01-20] MEDS: OXcarbazepine 300 MG TAB PO SCH ×3 (07:51→19:42)
[2018-01-20] MEDS: lamoTRIgine 100 MG TAB PO SCH ×2 (14:02→19:42)
--- NOTE | 2018-01-20 16:41 | HP ---
HISTORY AND PHYSICAL DATE OF ADMISSION: 01/19/2018 This is a 62-year-old female who is a patient of Dr. Hernandez. She is being admitted by me, as I am covering Dr. Hernandez this weekend. The patient apparently lives in a detention and the patient has a long-standing history of a seizure disorder. Apparently she had a seizure before being brought to the emergency room; she fell backward and hit her head. She was brought to the emergency room for further evaluation of head injury from the fall. In the ER, she had a CT of the head which did not show any acute intracranial process. She was found to have a small laceration in the skull. This was stitched. Her CBC showed a WBC count of 14.0, hemoglobin 11.7, platelet count 337,000, sodium 134, potassium 4.4, BUN 24, creatinine 1.3, glucose 92. Cardiac enzymes were within normal limits with troponin less than 0.012. Patient has a long-standing history of seizure disorder and lately she was getting seizures more frequently. Her EKG showed sinus tachycardia with first-degree AV block and some non-specific ST-T changes. Patient was admitted to the hospital for further evaluation and treatment. PAST MEDICAL HISTORY: As mentioned before, she is known to have seizure disorder, long-standing history, and also she has hypertensive cardiovascular disease. She has schizoaffective disorder and mental depression. She also has a history of paroxysmal atrial fibrillation. CURRENT MEDICATIONS: 1. Trileptal 300 mg p.o. t.i.d. 2. MiraLAX p.r.n. 3. Zoloft 150 mg p.o. daily. 4. Verapamil 240 mg p.o. daily. 5. Lamictal 200 mg p.o. b.i.d. 6. Geodon 80 mg p.o. b.i.d. 7. Digoxin 125 mcg daily. 8. Ativan 0.5 mg p.o. b.i.d. p.r.n. 9. Macrobid 100 mg p.o. b.i.d. SOCIAL HISTORY: She does not smoke and she does not drink alcohol. FAMILY HISTORY: Detailed history is not obtainable from the patient, as the patient is a poor historian. REVIEW OF SYSTEMS: Patient denies any appetite has been good, bowels regular. She has no chest pain. She has no cough. She has no abdominal pain. She has no polyuria or dysuria. She has no neurologic symptoms other than the seizure disorder. PHYSICAL EXAMINATION: Physical examination reveals a 62-year-old white female, well nourished and well developed. She is in no acute distress. She is alert but slightly confused and responds poorly to questions. There is no jaundice. There is no generalized lymphadenopathy. There are no petechiae or bruises. Pulse 96 per minute, regular. Blood pressure 135/91. EXAMINATION OF THE ENT: Negative. NECK: Supple. There is no jugular venous distention. There is no goiter. There is no carotid bruit. Heart was in sinus tachycardia when she arrived in the emergency room. Lungs revealed diminished breath sounds over both bases. No rales or rhonchi. ABDOMEN: Soft and nontender. There is no mass palpable. Examination of the lower extremities revealed no pitting edema. Neurologic examination does not reveal any localizing signs. IMPRESSION: 1. Seizure disorder. 2. Schizoaffective disorder. 3. Small laceration of the scalp due to injury from fall. 4. Hypertensive cardiovascular disease. 5. History of mental depression and anxiety disorder. PLAN: Patient will be admitted to hospital. Will have a neurology consultation, and because of the history of paroxysmal atrial fibrillation, we will get a cardiology consultation. Prognosis guarded. Diagnosis, prognosis and therapeutic plans were discussed in detail with the patient, but apparently the patient has understanding. MMODL / IJN: [id number] /
--- NOTE | 2018-01-20 17:04 | P.CNNES ---
History of Present Illness Consult date: 01/20/18 History of Present Illness: The patient is a 62-year-old woman with mild mental cognitive dysfunction and seizure disorder. She has been on Lamictal and Trileptal for seizure management. Her seizures have been fairly well well controlled until recently and according to the caregiver's report in the emergency room she has more seizures during the summer summer season apparently the patient had a seizure last night and fell hitting her head. She was brought by EMS to [facility] emergency room where she was admitted and the second seizure was witnessed. Patient had a CT of the brain which was unremarkable. Patient is sitting in bed and is in no acute distress. She denies any headache or neck pain. When asked whether she forgot to take her medications she states he has however she is not a reliable historian. Review of Systems ROS unobtainable: due to mental status Past Medical History Past Medical History: Atrial Fibrillation, Hypertension, Pneumonia, Seizure Disorder Additional Past Medical History / Comment(s): Vertigo, paroxysmal atrial fibrillation, moderate intellectual disability, SEPTEMBER 2016 UTI AND BACTEREMIA History of Any Multi-Drug Resistant Organisms: ESBL Date of last positivie culture/infection: 10/18/17 MDRO Source:: urine - E coli ESBL Past Surgical History: No Surgical Hx Reported Past Anesthesia/Blood Transfusion Reactions: No Reported Reaction Additional Past Anesthesia/Blood Transfusion Reaction / Comment(s): field care coordinator says not that she knows of Past Psychological History: Schizoaffective Disorder Additional Psychological History / Comment(s): OCD, auditory hallucinations, needs reassurance that she is ok. depressive type schizoaffective Smoking Status: Never smoker Past Alcohol Use History: None Reported Additional Past Alcohol Use History / Comment(s): Patient is a lifelong nonsmoker, no illicit drug use, alcohol use. Patient lives in her own apartment with a roommate. They have 24-hour care. There are no pets in the home. No recent travel. Past Drug Use History: None Reported - Past Family History Father Family Medical History: Cancer Additional Family Medical History / Comment(s): lymphoma Mother Family Medical History: AFIB, Congestive Heart Failure (CHF) Medications and Allergies Home Medications Medication Instructions Recorded Confirmed Type Aspirin 325 mg PO DAILY@169902/13/14 01/19/18 History Multivitamins, Thera [Multivitamin 1 tab PO DAILY@169902/13/14 01/19/18 History (formulary)] OXcarbazepine [Trileptal] 300 mg PO TID@,1429,02/13/14 01/19/18 History Polyethylene Glycol 3350 [Miralax] 17 gm PO DAILY@142902/13/14 01/19/18 History Sertraline [Zoloft] 150 mg PO DAILY@69902/13/14 01/19/18 History Verapamil HCl [Verapamil ER] 240 mg PO DAILY@69902/13/14 01/19/18 History Ziprasidone [Geodon] 80 mg PO BID@02/13/14 01/19/18 History lamoTRIgine [LaMICtal] 200 mg PO BID@1429,02/13/14 01/19/18 History Digoxin [Lanoxin] 125 mcg PO BID@09/06/16 01/19/18 History Clotrimazole [Clotrimazole AF] 1 applic TOPICAL HS@199901/19/18 01/19/18 History Cranberry Fruit Extract [Cranberry] 1,000 mg PO DAILY@169901/19/18 01/19/18 History LORazepam [Ativan] 0.5 mg PO BID PRN 01/19/18 01/19/18 History Nitrofurantoin Macrocrystal 100 mg PO BID 01/19/18 01/19/18 History [Macrodantin] lamoTRIgine [LaMICtal] 50 mg PO DAILY@69901/19/18 01/19/18 History Allergies Allergy/AdvReac Type Severity Reaction Status Date / Time No Known Allergies Allergy Verified 01/19/18 19:37 Physical Examination - Vital Signs Vital Signs: Vital Signs Temp Pulse Pulse Resp BP BP Pulse Ox 01/20/18 14:27 98.4 F 89 15 111/74 94 L 01/20/18 07:10 98.2 F 99 14 146/81 94 L 01/20/18 00:30 98.1 F 96 15 154/72 96 01/19/18 22:35 97.7 F 96 18 150/76 99 01/19/18 22:07 97.2 F L 101 H 20 169/88 94 L 01/19/18 19:04 97.9 F 96 16 135/91 95 Intake and Output 01/20/18 01/20/18 01/20/18 06:59 14:59 22:59 Intake Total 180 120 Balance 180 120 Intake: Intake, IV Titration 180 120 Amount Sodium Chloride 0.9% 1, 180 120 000 ml @ 20 mls/hr IV . Q24H SUSIE Rx#:[id number] Other: # Voids 2 2 - Constitutional General appearance: average body habitus - EENT EENT: PERRL - Respiratory Respiratory: lungs clear - Cardiovascular Cardiovascular: regular rate, normal S1, normal S2 - Integumentary Integumentary: normal - Neurologic Mental status: She was awake alert and oriented to person place and situation. She does have mild to moderate cognitive impairment. Cranial nerve examination: PERRL, EOMI, VFF, tongue midline Speech examination: intact Sensorimotor examination: intact Detailed motor examination: grossly full strength in all extremities Reflex and gait examination: intact - Psychiatric Psychiatric: cooperative Results - Laboratory Findings CBC and BMP: 01/19/18 19:30 01/19/18 19:30 Abnormal Lab Findings: Abnormal Labs 01/19/18 01/19/18 01/19/18 19:30 19:30 22:04 WBC 14.0 H Neutrophils # 10.6 H Sodium 134 L BUN 24 H Creatinine 1.30 H Total Bilirubin 0.1 L Alkaline Phosphatase 150 H Urine Blood Trace H Urine Nitrite Positive H Ur Leukocyte Esterase Large H Urine WBC 10 H Urine Bacteria Occasional H Urine Mucus Rare H Assessment and Plan (1) Recurrent seizures Current Visit: Yes Status: Acute Code(s): G40.909 - EPILEPSY, UNSP, NOT INTRACTABLE, WITHOUT STATUS EPILEPTICUS SNOMED Code(s): 86824242 (2) Head concussion Current Visit: Yes Status: Acute SNOMED Code(s): 216074439 Plan: The patient is a 62-year-old woman with epilepsy. She has been on Lamictal and Trileptal for seizure management. She had breakthrough seizure yesterday evening and hit her head. She was brought to the emergency room and a CT of the brain did not show any acute findings. And is neurologically stable and has no complaints. When check trough Trileptal andl amictal level in a.m. Continue seizure precautions.
[2018-01-21] MEDS: DIGOXIN 125 MCG TAB PO SCH ×2 (09:02→22:12)
[2018-01-21] MEDS: OXcarbazepine 300 MG TAB PO SCH ×3 (09:03→22:12)
[2018-01-21] MEDS: ZIPRASIDONE 80 MG CAP PO SCH ×2 (09:03→22:12)
[2018-01-21] MEDS: SERTRALINE 100 MG TAB PO SCH (09:03)
[2018-01-21] MEDS: VERAPAMIL SR 240 MG TABLET.ER PO SCH (09:03)
[2018-01-21] MEDS: lamoTRIgine 25 MG TAB PO SCH (09:04)
[2018-01-21] MEDS: lamoTRIgine 100 MG TAB PO SCH ×2 (14:47→22:12)
--- NOTE | 2018-01-21 16:40 | ECHOF ---
Referral Reason:cardiac disease MEASUREMENTS -------- HEIGHT: 162.6 cm WEIGHT: 65.8 kg BP: RVIDd: 2.8 cm (< 3.3) IVSd: 1.2 cm (0.6 - 1.1) LVIDd: 4.0 cm (3.9 - 5.3) LVPWd: 1.0 cm (0.6 - 1.1) IVSs: 1.3 cm LVIDs: 4.5 cm LA Diam: 2.5 cm (2.7 - 3.8) Ao Diam: 2.9 cm (2.0 - 3.7) MV EXCURSION: 17.896 mm (> 18.000) MV EF SLOPE: 73 mm/s (70 - 150) EPSS: 0.2 cm MV E Fernando: 0.68 m/s MV DecT: 220 ms MV A Fernando: 1.13 m/s MV E/A Ratio: 0.60 RAP: 5.00 mmHg RVSP: 13.59 mmHg FINDINGS -------- Sinus rhythm. This was a technically adequate study. The left ventricular size is normal. There is borderline concentric left ventricular hypertrophy. Overall left ventricular systolic function is normal with, an EF between 55 - 60 %. The right ventricle is normal in size. The left atrial size is normal. The right atrial size is normal. The aortic valve is trileaflet, and appears structurally normal. No aortic stenosis or regurgitation. The mitral valve is normal. Mild mitral regurgitation is present. Mild tricuspid regurgitation present. There is no evidence of pulmonary hypertension. The right v entricular systolic pressure, as measured by Doppler, is 13.59mmHg. The pulmonic valve was not well visualized. There is no pulmonic regurgitation present. The aortic root size is normal. There is a small, generalized pericardial effusion present. CONCLUSIONS -------- 1. Sinus rhythm. 2. The left ventricular size is normal. 3. There is borderline concentric left ventricular hypertrophy. 4. Overall left ventricular systolic function is normal with, an EF between 55 - 60 %. 5. The left atrial size is normal. 6. The aortic valve is trileaflet, and appears structurally normal. No aortic stenosis or regurgitati on. 7. Mild mitral regurgitation is present. 8. Mild tricuspid regurgitation present. 9. There is no evidence of pulmonary hypertension. 10. The pulmonic valve was not well visualized. 11. There is no pulmonic regurgitation present. 12. The aortic root size is normal. 13. There is a small, generalized pericardial effusion present. [employer] OPERATOR: Kristie Palmer RDCS
--- NOTE | 2018-01-21 17:36 | CONS ---
CONSULTATION ATTENDING: Dr. Hernandez Mrs. Pride is a 62-year-old female with known history of seizure disorder, who presented with a seizure activity. She fell backward after seizure. Cardiac consultation was requested because of prior history off paroxysmal atrial fibrillation. The patient has been in sinus mechanism. She has not been anticoagulated because of the recurrent falls related to her seizure. She has a history of schizoaffective disorder and mental depression. She denies any chest pain. Her breathing has been stable. She denies any palpitation. She denies any knowledge of any arrhythmia. She has no peripheral edema. No PND, orthopnea. MEDICATION: At home include Geodon, verapamil, Zoloft, MiraLAX, Trileptal, Ativan, Lanoxin and Macrodantin. REVIEW OF SYSTEMS: RESPIRATORY SYSTEM: No recent history of wheezing. No cough. GI SYSTEM: No recent GI bleeding. No peptic ulcer disease. SYSTEM: No dysuria or hematuria. NERVOUS SYSTEM: History of seizure. PHYSICAL EXAMINATION: A 62-year-old female, in no apparent distress. Blood pressure 122/60 with a heart in 90s. HEAD: Normocephalic. EYES: Sclerae anicteric. NECK: Good upstroke. No bruit, no venous distention. LUNGS: Clear to auscultation. HEART: Regular rhythm S1, S2. No S3 with systolic murmur heard at the base. No diastolic murmur. No rub. ABDOMEN: Soft, nontender. Positive bowel sounds, no megaly. EXTREMITIES: No edema. Intact distal pulses. LAB DATA: Lab data revealed troponin less than 0.012. BUN and creatinine 24 and 1.3, hemoglobin of 11.7. EKG revealed a sinus mechanism with a normal axis, intervals, nonspecific ST-T wave changes, probably related to digoxin. IMPRESSION: 1. Seizure disorder. 2. Paroxysmal atrial fibrillation, remains in normal sinus rhythm, not anticoagulated because of falls and seizure. RECOMMENDATION: From the cardiac standpoint, I see no evidence of active cardiac disease. I will continue clinical observation. We will see on as needed basis. Please feel free to call us for any question. MMODL / IJN: [id number] /
[2018-01-21] MEDS: SULFAMETHOX-TMP 800-160MG 1 EACH TAB PO SCH (22:12)
[2018-01-21] MEDS: SODIUM CHLORIDE 0.9% 1,000 ML IV SCH ×2 (22:13→22:20)
--- NOTE | 2018-01-21 23:45 | PN ---
PROGRESS NOTE DATE OF SERVICE: 01/21/2018 This is a 62-year-old white female who lives in a longterm and she was brought to the emergency room because she had a fall following a seizure and the patient is known to have seizure disorder and she had a laceration in the scalp and this was stitched and CT scan did not show any acute changes in the intracranial structures and the patient was admitted to the hospital for further evaluation and treatment. The patient was seen by Dr. García in consultation and the patient has been seizure-free since admission and she has a history of paroxysmal atrial fibrillation and cardiology consultation has been requested and the patient is being evaluated by Dr. García and and drapery hemmer automatic. The patient at the time of admission was also found to have a urinary tract infection. The patient is being placed on Bactrim DS. Her vital signs are stable. Her condition is getting fairly stable. After evaluation is completed and her condition is stable, she could be discharged home soon possibly after the evaluation of her cardiac problems. Prognosis is guarded. MMODL / IJN: [id number] /
[2018-01-22] MEDS: DIGOXIN 125 MCG TAB PO SCH ×2 (08:12→22:17)
[2018-01-22] MEDS: SERTRALINE 100 MG TAB PO SCH (08:13)
[2018-01-22] MEDS: lamoTRIgine 25 MG TAB PO SCH (08:13)
[2018-01-22] MEDS: ZIPRASIDONE 80 MG CAP PO SCH ×2 (08:14→22:17)
[2018-01-22] MEDS: SULFAMETHOX-TMP 800-160MG 1 EACH TAB PO SCH (08:15)
[2018-01-22] MEDS: VERAPAMIL SR 240 MG TABLET.ER PO SCH (08:15)
[2018-01-22] MEDS: OXcarbazepine 300 MG TAB PO SCH ×3 (08:15→22:17)
[2018-01-22] MEDS ORDERED: AMOXIC-POT CLAV 875-125MG 1 EACH TAB PO SCH (12:04)
[2018-01-22] MEDS: lamoTRIgine 100 MG TAB PO SCH ×2 (14:12→22:17)
[2018-01-22] MEDS: ACETAMINOPHEN TAB 325 MG TAB PO PRN ×2 (14:53→23:49)
--- NOTE | 2018-01-22 17:10 | PN ---
PROGRESS NOTE DATE OF SERVICE: 01/22/2018 HISTORY OF PRESENT ILLNESS: This is a 62-year-old white female who was brought to the emergency room because of seizure disorder, and she had an acute episode of seizure and she fell backwards and hit her head and sustained a small laceration of the scalp. The patient was brought to the emergency room and she was evaluated. The CT scan of the head did not show any acute intracranial process. The patient had 2 stitches for the laceration and because the patient was getting more frequent seizures lately, she was admitted to the hospital for further evaluation and treatment. The patient was seen by Dr. García in consultation and he is following the patient to make adjustment in the seizure medications. The patient also has a history of paroxysmal atrial fibrillation and the patient was seen by Dr. Hazel in consultation and he felt that the more frequent seizures are not related to her cardiac problems. The patient at the time of admission also had evidence of urinary tract infection. She was placed on Bactrim DS; however, the patient is febrile today and her urine culture showed E coli which is resistant to the Bactrim DS and also the antibiotic Bactrim DS was discontinued and she has been placed on Augmentin 875 mg p.o. b.i.d. Otherwise her vital signs were stable. Prognosis is guarded. Her primary care physician is Dr. Hernandez. He will be back to work tomorrow and he will assume care of the patient starting tomorrow. MMVALENTIN / SHANT: [id number] /
[2018-01-22] MEDS: SODIUM CHLORIDE 0.9% 1,000 ML IV SCH (22:18)
[2018-01-22] MEDS: PIPERACILLIN-TAZOBACTAM 3.375 GM in DEXTROSE/WATER 1 50ML.BAG IVPB SCH (23:50)
[2018-01-22 23:52] LABS: Basophils % (A) 0 %; Calcium 9.1 mg/dL (8.4-10.2); Eosinophils % (A) 0 %; HCT 32.2 % (34.0-46.0); HGB 10.7 gm/dL (11.4-16.0); Lymphocytes # (A) 0.9 k/uL (1.0-4.8); Lymphocytes % (A) 5 %; MCH 27.8 pg (25.0-35.0); MCHC 33.2 g/dL (31.0-37.0); MCV 83.6 fL (80.0-100.0); Mean Platelet Volume 6.5; Monocytes # (A) 1.1 k/uL (0-1.0); Monocytes % (A) 6 %; Neutrophils # (A) 14.9 k/uL (1.3-7.7); Neutrophils % (A) 85 %; Platelet Count 238 k/uL (150-450); Potassium 4.1 mmol/L (3.5-5.1); RBC 3.85 m/uL (3.80-5.40); RDW 14.3 % (11.5-15.5); WBC 17.6 k/uL (3.8-10.6)
[2018-01-23 04:48] LABS: Lamotrigine (Lamictal) 5.7 ug/mL (2.0-15.0)
[2018-01-23] MEDS: ZIPRASIDONE 80 MG CAP PO SCH ×2 (08:03→20:30)
[2018-01-23] MEDS: OXcarbazepine 300 MG TAB PO SCH ×3 (08:03→20:30)
[2018-01-23] MEDS: DIGOXIN 125 MCG TAB PO SCH ×2 (08:03→20:30)
[2018-01-23] MEDS: SERTRALINE 100 MG TAB PO SCH ×2 (08:04→10:29)
[2018-01-23] MEDS: lamoTRIgine 25 MG TAB PO SCH (08:04)
[2018-01-23] MEDS: VERAPAMIL SR 240 MG TABLET.ER PO SCH (08:04)
[2018-01-23] MEDS: PIPERACILLIN-TAZOBACTAM 3.375 GM in DEXTROSE/WATER 1 50ML.BAG IVPB SCH ×2 (10:21→17:40)
[2018-01-23] MEDS: ACETAMINOPHEN TAB 325 MG TAB PO PRN (10:26)
[2018-01-23] MEDS: lamoTRIgine 100 MG TAB PO SCH ×2 (17:36→20:30)
--- NOTE | 2018-01-23 19:19 | PN ---
PROGRESS NOTE CHIEF COMPLAINT: Re-evaluation. HISTORY OF PRESENT ILLNESS: This 62-year-old female was admitted to the hospital with seizure and head injury with scalp laceration. The patient was admitted to the hospital in view of that. The patient has a chronic history of seizure disorder. The patient also has a history of atrial flutter in the past. It is paroxysmal. The patient has been seen by Cardiology and no specific new recommendations. The patient yesterday had a significant fever and noted to have also elevated white count. The patient's urine culture was positive for E coli. I started the patient on Zosyn as these are resistant to bacteria. This is her third or fourth urinary tract infection. This patient has been hospitalized for at least 2 times with urinary tract infections. We will ask ID to see the patient regarding this. Meanwhile the patient's condition discussed with the patient's daughter, the patient is handicapped mentally. REVIEW OF SYSTEMS: NEURO: Denies any headaches. PSYCH: No anxiety. CARDIAC: No chest pain, angina, palpitation. RESPIRATORY: Denies shortness of breath, cough. GI: No nausea, vomiting, abdominal pain. She had no appetite yesterday when she had a temperature, but did eat some later today. No reported diarrhea. No reported urinary symptoms. EXTREMITIES: Denies pain. CONSTITUTIONAL: Elevated temperature last night. PHYSICAL EXAMINATION: She is a pleasant 62-year-old who presents in no distress. Vital signs revealed temperature 99.3, pulse 101, respirations 16, blood pressure 139/78, pulse ox 99% on room air. HEENT: Normocephalic. NECK: No JVD. CHEST EXAMINATION: Clear to auscultation. CARDIAC: Normal S1, S2 with no gallops. Irregular rhythm. ABDOMEN: Soft. Bowel sounds normal. No CVA tenderness. EXTREMITIES: Reveal no edema. No tenderness. NEUROLOGICALLY: Awake, alert, oriented with well-coordinated movements. LABORATORY ASSESSMENT: White count 17.6 with hemoglobin 10.7 yesterday. Sodium 132, BUN 24, creatinine 1.7. ASSESSMENT: 1. Recurrent E coli, resistant E coli urinary tract infections. 2. Acute on chronic kidney disease. 3. Acute kidney injury secondary to infection. 4. Seizure disorder with breakthrough seizures. 5. Closed head injury. 6. Atypical atrial flutter, paroxysmal. PLAN: The patient at present is stable, continue present medical regimen. Patient's condition discussed with the patient and patient's sister. The patient has been switched to Zosyn from the oral Augmentin. We will have ID see the patient. Dr. Mckeon is consulted. Prognosis remains guarded. Please note: The patient has been previously treated for urinary tract infection with oral antibiotics for at least 3 weeks. She has not been noted to have any evidence of any renal disease on an ultrasound in the past. MMODL / IJN: [id number] /
[2018-01-24] MEDS: PIPERACILLIN-TAZOBACTAM 3.375 GM in DEXTROSE/WATER 1 50ML.BAG IVPB SCH ×3 (00:30→16:10)
[2018-01-24] MEDS: OXcarbazepine 300 MG TAB PO SCH ×3 (07:17→22:06)
[2018-01-24] MEDS: DIGOXIN 125 MCG TAB PO SCH ×2 (07:17→22:06)
[2018-01-24] MEDS: lamoTRIgine 25 MG TAB PO SCH (07:17)
[2018-01-24] MEDS: ZIPRASIDONE 80 MG CAP PO SCH ×2 (07:17→22:06)
[2018-01-24 07:21] LABS: HCT 29.9 % (34.0-46.0); HGB 9.8 gm/dL (11.4-16.0); MCH 27.9 pg (25.0-35.0); MCHC 32.8 g/dL (31.0-37.0); Mean Platelet Volume 6.6; Platelet Count 276 k/uL (150-450); RBC 3.51 m/uL (3.80-5.40); RDW 14.5 % (11.5-15.5); WBC 16.4 k/uL (3.8-10.6)
[2018-01-24] MEDS: SODIUM CHLORIDE 0.9% 1,000 ML IV SCH ×3 (07:23→22:12)
[2018-01-24 07:37] LABS: Calcium 9.1 mg/dL (8.4-10.2); Potassium 3.9 mmol/L (3.5-5.1)
[2018-01-24] MEDS: VERAPAMIL SR 240 MG TABLET.ER PO SCH (07:53)
--- NOTE | 2018-01-24 13:07 | P.CONS ---
History of Present Illness - Reason for Consult Consult date: 01/24/18 ESBL E. coli urinary tract infection - History of Present Illness This is a 62-year-old female with past medical history significant for moderate intellectual disability, paroxysmal atrial fibrillation, hypertension, seizure disorder. She is known to ID service as she was previously seen her in a September 2016 admission for sepsis due to Serratia marcescens urinary tract infection. At that time, patient presented with seizure. Patient has now been brought into [facility] emergency center back on January 19 at which time she presented with a seizure and hit her head and had a scalp laceration. She was admitted to the hospital and she has been seen in consultation by neurology, Dr. García. Oxcarbazepine, lamotrigine levels are therapeutic. Patient has had no further seizure activity. Patient has been seen by cardiology. Digoxin level was 1.2. Patient has been in a normal sinus rhythm. She is not on anticoagulation due to risk of falls. Patient developed fever on January 22 of 101.9 with elevated heart rate and leukocytosis. Her urinalysis was clear, blood trace, nitrate positive, leukoesterase large, WBC 10 and bacteria occasional. Urine culture has returned back ESBL E. coli susceptible to Zosyn. Patient was on Bactrim and Augmentin on the and transitioned to Zosyn. Patient is found sitting up in a chair eating her breakfast and appears to be in no acute distress. Patient and staff deny having any nausea, vomiting, diarrhea. Patient is expecting to go home soon. Review of Systems All systems: negative Constitutional: Reports fever, Denies chills, Denies poor appetite Eyes: denies blurred vision, denies pain Ears, nose, mouth and throat: Denies dental pain, Denies headache, Denies mouth pain, Denies sore throat Cardiovascular: Denies chest pain, Denies shortness of breath Respiratory: Denies cough, Denies cough with sputum, Denies dyspnea, Denies excessive sputum, Denies wheezing Gastrointestinal: Denies abdominal pain, Denies diarrhea, Denies nausea, Denies vomiting Genitourinary: Denies dysuria, Denies hematuria Musculoskeletal: Denies myalgias Integumentary: Denies pruritus, Denies rash Neurological: Denies numbness, Denies weakness Psychiatric: Denies anxiety, Denies depression Endocrine: Denies fatigue, Denies weight change Past Medical History Past Medical History: Atrial Fibrillation, Hypertension, Pneumonia, Seizure Disorder Additional Past Medical History / Comment(s): Vertigo, paroxysmal atrial fibrillation, moderate intellectual disability, SEPTEMBER 2016 UTI AND BACTEREMIA History of Any Multi-Drug Resistant Organisms: ESBL Year Discovered:: 01/19/18 MDRO Source:: urine - E coli ESBL Past Surgical History: No Surgical Hx Reported Past Anesthesia/Blood Transfusion Reactions: No Reported Reaction Additional Past Anesthesia/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 depressive type schizoaffective Smoking Status: Never smoker Past Alcohol Use History: None Reported Additional Past Alcohol Use History / Comment(s): Patient is a lifelong nonsmoker, no illicit drug use, alcohol use. Patient lives in her own apartment with a roommate. They have 24-hour care. There are no pets in the home. No recent travel. Past Drug Use History: None Reported - Past Family History Father Family Medical History: Cancer Additional Family Medical History / Comment(s): lymphoma Mother Family Medical History: AFIB, Congestive Heart Failure (CHF) Medications and Allergies Home Medications Medication Instructions Recorded Confirmed Type Aspirin 325 mg PO DAILY@169902/13/14 01/19/18 History Multivitamins, Thera [Multivitamin 1 tab PO DAILY@169902/13/14 01/19/18 History (formulary)] OXcarbazepine [Trileptal] 300 mg PO TID@07,143,02/13/14 01/19/18 History Polyethylene Glycol 3350 [Miralax] 17 gm PO DAILY@1430 02/13/14 01/19/18 History Sertraline [Zoloft] 150 mg PO DAILY@69902/13/14 01/19/18 History Verapamil HCl [Verapamil ER] 240 mg PO DAILY@69902/13/14 01/19/18 History Ziprasidone [Geodon] 80 mg PO BID@07,20 02/13/14 01/19/18 History lamoTRIgine [LaMICtal] 200 mg PO BID@143,20 02/13/14 01/19/18 History Digoxin [Lanoxin] 125 mcg PO BID@07,09/06/16 01/19/18 History Clotrimazole [Clotrimazole AF] 1 applic TOPICAL HS@199901/19/18 01/19/18 History Cranberry Fruit Extract [Cranberry] 1,000 mg PO DAILY@1700 01/19/18 01/19/18 History LORazepam [Ativan] 0.5 mg PO BID PRN 01/19/18 01/19/18 History Nitrofurantoin Macrocrystal 100 mg PO BID 01/19/18 01/19/18 History [Macrodantin] lamoTRIgine [LaMICtal] 50 mg PO DAILY@0701/19/18 01/19/18 History Allergies Allergy/AdvReac Type Severity Reaction Status Date / Time No Known Allergies Allergy Verified 01/19/18 19:37 Physical Exam Vitals: Vital Signs Temp Pulse Resp BP Pulse Ox 01/24/18 00:30 97.9 F 90 16 114/64 94 L 01/24/18 00:25 16 01/23/18 20:30 85 16 01/23/18 18:58 98.5 F 85 16 115/71 98 01/23/18 14:02 99.3 F 66 16 98/54 93 L Intake and Output 01/23/18 01/24/18 01/24/18 22:59 06:59 14:59 Intake Total 900 Balance 900 Intake: Intake, IV Titration 900 Amount Piperacillin-Tazobactam 3 100 .375 gm In Dextrose/Water 1 50ml.bag @ 12.5 mls/hr IVPB Q8HR SUSIE Rx#: [id number] Sodium Chloride 0.9% 1, 800 000 ml @ 100 mls/hr IV . Q10H SUSIE Rx#:[id number] Other: Voiding Method Toilet # Voids 1 3 Gen: This is a 62-year-old female. She is see him in a chair at the bedside any breakfast. She appears to be in no acute distress. No respiratory distress is noted. HEENT: Head is atraumatic, normocephalic. Pupils equal, round. Sclerae is anicteric. Conjunctiva pink. Mucous membranes of the mouth are moist. No thrush noted. NECK: Supple. No JVD. No lymphadenopathy. No thyromegaly. LUNGS: Clear to auscultation. No wheezes or rhonchi. No intercostal retractions. HEART: Regular rate and rhythm. No murmur. ABDOMEN: Soft. Bowel sounds are present. No masses. No tenderness. No suprapubic tenderness. EXTREMITIES: No pedal edema. No calf tenderness. Dorsalis pedis +2 bilaterally. Onychomycosis bilateral toes NEUROLOGICAL: Patient is awake, alert and oriented x2 Results Results: Laboratory Results WBC 16.4 k/uL (3.8-10.6) H 01/24/18 06:54 RBC 3.51 m/uL (3.80-5.40) L 01/24/18 06:54 Hgb 9.8 gm/dL (11.4-16.0) L 01/24/18 06:54 Hct 29.9 % (34.0-46.0) L 01/24/18 06:54 MCV 85.0 fL (80.0-100.0) 01/24/18 06:54 MCH 27.9 pg (25.0-35.0) 01/24/18 06:54 MCHC 32.8 g/dL (31.0-37.0) 01/24/18 06:54 RDW 14.5 % (11.5-15.5) 01/24/18 06:54 Plt Count 276 k/uL (150-450) 01/24/18 06:54 Neutrophils % 85 % 01/22/18 23:31 Lymphocytes % 5 % 01/22/18 23:31 Monocytes % 6 % 01/22/18 23:31 Eosinophils % 0 % 01/22/18 23:31 Basophils % 0 % 01/22/18 23:31 Neutrophils # 14.9 k/uL (1.3-7.7) H 01/22/18 23:31 Lymphocytes # 0.9 k/uL (1.0-4.8) L 01/22/18 23:31 Monocytes # 1.1 k/uL (0-1.0) H 01/22/18 23:31 Eosinophils # 0.0 k/uL (0-0.7) 01/22/18 23:31 Basophils # 0.0 k/uL (0-0.2) 01/22/18 23:31 PT 10.0 sec (9.0-12.0) 01/19/18 19:30 INR 1.0 (<1.2) 01/19/18 19:30 APTT 22.6 sec (22.0-30.0) 01/19/18 19:30 Sodium 138 mmol/L (137-145) 01/24/18 06:54 Potassium 3.9 mmol/L (3.5-5.1) 01/24/18 06:54 Chloride 105 mmol/L (98-107) 01/24/18 06:54 Carbon Dioxide 21 mmol/L (22-30) L 01/24/18 06:54 Anion Gap 12 mmol/L 01/24/18 06:54 BUN 22 mg/dL (7-17) H 01/24/18 06:54 Creatinine 1.68 mg/dL (0.52-1.04) H 01/24/18 06:54 Est GFR (CKD-EPI)AfAm 38 (>60 ml/min/1.73 sqM) 01/24/18 06:54 Est GFR (CKD-EPI)NonAf 33 (>60 ml/min/1.73 sqM) 01/24/18 06:54 Glucose 102 mg/dL (74-99) H 01/24/18 06:54 Plasma Lactic Acid [place] 1.4 mmol/L (0.7-2.0) 01/22/18 23:31 Calcium 9.1 mg/dL (8.4-10.2) 01/24/18 06:54 Total Bilirubin 0.1 mg/dL (0.2-1.3) L 01/19/18 19:30 AST 20 U/L (14-36) 01/19/18 19:30 ALT 31 U/L (9-52) 01/19/18 19:30 Alkaline Phosphatase 150 U/L (38-126) H 01/19/18 19:30 Total Creatine Kinase 37 U/L (30-135) 01/19/18 19:30 CK-MB (CK-2) 0.7 ng/mL (0.0-2.4) 01/19/18 19:30 CK-MB (CK-2) Rel Index 1.9 01/19/18 19:30 Troponin I <0.012 ng/mL (0.000-0.034) 01/19/18 19:30 Total Protein 6.7 g/dL (6.3-8.2) 01/19/18 19:30 Albumin 3.7 g/dL (3.5-5.0) 01/19/18 19:30 Urine Color Colorless 01/19/18 22:04 Urine Appearance Clear (Clear) 01/19/18 22:04 Urine pH 7.0 (5.0-8.0) 01/19/18 22:04 Ur Specific [place] 1.003 (1.001-1.035) 01/19/18 22:04 Urine Protein Negative (Negative) 01/19/18 22:04 Urine Glucose (UA) Negative (Negative) 01/19/18 22:04 Urine Ketones Negative (Negative) 01/19/18 22:04 Urine Blood Trace (Negative) H 01/19/18 22:04 Urine Nitrite Positive (Negative) H 01/19/18 22:04 Urine Bilirubin Negative (Negative) 01/19/18 22:04 Urine Urobilinogen <2.0 mg/dL (<2.0) 01/19/18 22:04 Ur Leukocyte Esterase Large (Negative) H 01/19/18 22:04 Urine RBC 2 /hpf (0-5) 01/19/18 22:04 Urine WBC 10 /hpf (0-5) H 01/19/18 22:04 Urine Bacteria Occasional /hpf (None) H 01/19/18 22:04 Urine Mucus Rare /hpf (None) H 01/19/18 22:04 Digoxin 1.2 ng/mL 01/21/18 18:53 Urine Opiates Screen Not Detected (NotDetected) 01/19/18 22:04 Ur Oxycodone Screen Not Detected (NotDetected) 01/19/18 22:04 Urine Methadone Screen Not Detected (NotDetected) 01/19/18 22:04 Ur Propoxyphene Screen Not Detected (NotDetected) 01/19/18 22:04 Ur Barbiturates Screen Not Detected (NotDetected) 01/19/18 22:04 Oxcarbazepine 26.4 ug/mL (10-35) 01/21/18 06:30 Lamotrigine 5.7 ug/mL (2.0-15.0) 01/21/18 06:30 U Tricyclic Antidepress Not Detected (NotDetected) 01/19/18 22:04 Ur Phencyclidine Scrn Not Detected (NotDetected) 01/19/18 22:04 Ur Amphetamines Screen Not Detected (NotDetected) 01/19/18 22:04 U Methamphetamines Scrn Not Detected (NotDetected) 01/19/18 22:04 U Benzodiazepines Scrn Not Detected (NotDetected) 01/19/18 22:04 Urine Cocaine Screen Not Detected (NotDetected) 01/19/18 22:04 U Marijuana (THC) Screen Not Detected (NotDetected) 01/19/18 22:04 Serum Alcohol <10 mg/dL 01/19/18 19:30 Blood Type O Positive 01/19/18 19:30 Blood Type Recheck No 01/19/18 19:30 Antibody Screen NEGATIVE 01/19/18 19:30 Spec Expiration Date 01/22/2018 - 232901/19/18 19:30 CBC & Chem 7: 01/24/18 06:54 01/24/18 06:54 Labs: Abnormal Lab Results - Last 24 Hours (Table) 01/24/18 01/24/18 Range/Units 06:54 06:54 WBC 16.4 H (3.8-10.6) k/uL RBC 3.51 L (3.80-5.40) m/uL Hgb 9.8 L (11.4-16.0) gm/dL Hct 29.9 L (34.0-46.0) % Carbon Dioxide 21 L (22-30) mmol/L BUN 22 H (7-17) mg/dL Creatinine 1.68 H (0.52-1.04) mg/dL Glucose 102 H (74-99) mg/dL Microbiology - Last 24 Hours (Table) 01/19/18 22:04 Urine Culture - Final Urine,Voided Escherichia coli Assessment and Plan Plan: This is a 62-year-old female who presented to the hospital with seizure physical he found to have sepsis secondary to ESBL E. coli urinary tract infection. Patient started on Zosyn. Antibiotics for home will be addressed. Continue supportive care. Further recommendations as patient progresses. The above dictated assessment and findings were discussed with Dr. Mckeon. The impression and plan of care have been directed as dictated. Bobbi Curyr nurse practitioner acting as scribe for Dr. Mckeon.
[2018-01-24] MEDS: lamoTRIgine 100 MG TAB PO SCH ×2 (15:15→22:06)
--- NOTE | 2018-01-24 21:05 | P.CON ---
Consult Note - . Consult date: 01/24/18 Assessment/Plan:: This is a 62-year-old female with past medical history significant for moderate intellectual disability, paroxysmal atrial fibrillation, hypertension, seizure disorder. She is known to ID service as she was previously seen her in a September 2016 admission for sepsis due to Serratia marcescens urinary tract infection. At that time, patient presented with seizure. Patient has now been brought into [facility] emergency center back on January 19 at which time she presented with a seizure and hit her head and had a scalp laceration. She was admitted to the hospital and she has been seen in consultation by neurology, Dr. García. Oxcarbazepine, lamotrigine levels are therapeutic. Patient has had no further seizure activity. Patient has been seen by cardiology. Digoxin level was 1.2. Patient has been in a normal sinus rhythm. She is not on anticoagulation due to risk of falls. Patient developed fever on January 22 of 101.9 with elevated heart rate and leukocytosis. Her urinalysis was clear, blood trace, nitrate positive, leukoesterase large, WBC 10 and bacteria occasional. Urine culture has returned back ESBL E. coli susceptible to Zosyn. Patient was on Bactrim and Augmentin on the and transitioned to Zosyn. Patient is found sitting up in a chair eating her breakfast and appears to be in no acute distress. Patient and staff deny having any nausea, vomiting, diarrhea. Patient is expecting to go back to her home at [facility] soon. Please see the consult is dictated by nurse practitioner Mrs. Bobbi Curry. 8-year-old woman profoundly compromised who presents with altered mental status and seizure. She's being followed by neurology and apparently with current medications is not having further seizure activity. She did have a fever to 101.9 and urine culture now has evidence of the ESBL E. coli which is susceptible to Zosyn that was started. The patient herself is feeling somewhat better. Her fever has resolved. Denies any significant symptoms but does have significant compromise of her mental status. Regardless she is comfortable and is looking forward to going back to her living situation at [facility] where she has 24-hour care. When she is deemed appropriate for discharge a 7 day course of doxycycline 100 mg orally twice per day can be utilized completed course of therapy for her urinary tract infection with the ESBL E. coli. She's had a renal ultrasound done within the last few months it feels reveal evidence of any tumor mass or obstruction. The patient does not have evidence of bacteremia and constantly oral antibiotic therapy to complete treatment for her urinary tract infection is adequate at this point in time. I agree with evaluation, assessment and plan is dictated by nurse practitioner Mrs. Bobbi Curry.
--- NOTE | 2018-01-24 22:53 | PN ---
PROGRESS NOTE ATTENDING PHYSICIAN: Dr. Belkis Hernandez. CHIEF COMPLAINT: Re-evaluation. HISTORY OF PRESENT ILLNESS: This is a 62-year-old, was admitted to the hospital with breakthrough seizures. The patient had fallen and injured her head. The patient had no evidence of any intracranial injury. The patient subsequently had a fever and noticed to have a urinary tract infection with E. coli, the same E. coli she has had previously, resistant to most antibiotics. The patient has been on Zosyn. She is feeling well. She has had no further fever. She eats fairly well. REVIEW OF SYSTEMS: NEURO: Denies any headaches, dizziness. PSYCH: No anxiety. History of mental retardation. CARDIAC: No chest pain, angina, palpitation. RESPIRATORY: No shortness of breath, cough. GI: No nausea, vomiting, abdominal pain, diarrhea. : No symptoms dysuria, hematuria. EXTREMITIES: No pain. CONSTITUTIONAL: No fever, chills. PHYSICAL EXAMINATION: Pleasant female at present in no distress. Vital signs reveals temperature 98.2, pulse 79, respirations 16, blood pressure 109/61, pulse ox was 96% on room air. HEENT: Normocephalic. NECK: No JVD. CHEST: Clear to auscultation, percussion. CARDIAC: Normal S1, S2 with no gallops, murmurs. ABDOMEN: Soft. Bowel sounds present. No CVA tenderness. Extremities reveal no edema. No tenderness. NEUROLOGIC: Awake, alert, oriented to place and person. Moves both upper and lower extremities adequately. LABORATORY ASSESSMENT: White count 16.4, hemoglobin 9.8, platelet count 276. Electrolytes are normal. BUN 22, creatinine 1.6. ASSESSMENT: 1. Breakthrough seizures. 2. Urinary tract infection. 3. Anemia, chronic. 4. Acute on chronic renal failure. 5. Mental retardation. 6. History of atrial flutter. PLAN: The patient is stable. Continue present medical regimen. Patient's condition discussed with the patient. Prognosis is guarded. Potential discharge home tomorrow. Reviewed Dr. Mckeon' consultation recommendations. MMSARAHL / [place]: [id number] /
[2018-01-25] MEDS: PIPERACILLIN-TAZOBACTAM 3.375 GM in DEXTROSE/WATER 1 50ML.BAG IVPB SCH ×2 (00:41→08:28)
[2018-01-25 07:36] LABS: HCT 28.5 % (34.0-46.0); HGB 9.1 gm/dL (11.4-16.0); MCH 27.5 pg (25.0-35.0); MCV 85.8 fL (80.0-100.0); Mean Platelet Volume 6.5; Platelet Count 302 k/uL (150-450); RBC 3.33 m/uL (3.80-5.40); RDW 14.3 % (11.5-15.5); WBC 10.6 k/uL (3.8-10.6)
[2018-01-25] MEDS: lamoTRIgine 25 MG TAB PO SCH (07:52)
[2018-01-25] MEDS: OXcarbazepine 300 MG TAB PO SCH (07:52)
[2018-01-25] MEDS: DIGOXIN 125 MCG TAB PO SCH (07:52)
[2018-01-25] MEDS: SERTRALINE 100 MG TAB PO SCH (07:53)
[2018-01-25] MEDS: ZIPRASIDONE 80 MG CAP PO SCH (07:53)
[2018-01-25] MEDS: VERAPAMIL SR 240 MG TABLET.ER PO SCH (07:53)
[2018-01-25 07:56] LABS: Calcium 9.2 mg/dL (8.4-10.2); Potassium 4.3 mmol/L (3.5-5.1)
[2018-01-25] MEDS: SODIUM CHLORIDE 0.9% 1,000 ML IV SCH (08:29)
[2018-01-25 09:34] VITALS: BP 118/71; PULSE 99; RESP 12; TEMP 96.5
== END 2018-01-25 12:43 | disposition home or self-care (01) | DRG 101 ==
LOC: EC 19:04 → 3SUR 21:34
PROVIDERS: ADMIT Internal Medicine; ATTEND Internal Medicine
PROC: 0HQ0XZZ Repair Scalp Skin, External Approach (ICD-10-PCS; principal; 2018-01-19)
DX: G40.909 Epilepsy, unspecified, not intractable, without status epilepticus (principal); S06.0X9A Concussion with loss of consciousness of unspecified duration, initial encounter; I48.4 Atypical atrial flutter; N17.9 Acute kidney failure, unspecified; N39.0 Urinary tract infection, site not specified; D64.9 Anemia, unspecified; F25.9 Schizoaffective disorder, unspecified; F42.9 Obsessive-compulsive disorder, unspecified; F71 Moderate intellectual disabilities; I13.10 Hypertensive heart and chronic kidney disease without heart failure, with stage 1 through stage 4 chronic kidney disease, or unspecified chronic kidney disease; I44.0 Atrioventricular block, first degree; I48.0 Paroxysmal atrial fibrillation; N18.9 Chronic kidney disease, unspecified; B96.20 Unspecified Escherichia coli [E. coli] as the cause of diseases classified elsewhere; R29.6 Repeated falls; Z79.899 Other long term (current) drug therapy; Z79.82 Long term (current) use of aspirin; S01.01XA Laceration without foreign body of scalp, initial encounter; W18.30XA Fall on same level, unspecified, initial encounter; Z16.12 Extended spectrum beta lactamase (ESBL) resistance; Z80.7 Family history of other malignant neoplasms of lymphoid, hematopoietic and related tissues; Z82.49 Family history of ischemic heart disease and other diseases of the circulatory system; Z91.81 History of falling; R40.2142 Coma scale, eyes open, spontaneous, at arrival to emergency department; R40.2362 Coma scale, best motor response, obeys commands, at arrival to emergency department; R40.2252 Coma scale, best verbal response, oriented, at arrival to emergency department
CPT/HCPCS: 12001; 36415; 70450; 72125; 80048; 80053; 80162; 80175; 80183; 80306; 80320; 81001; 82550; 82553; 83605; 84484; 85025; 85027; 85610; 85730; 86850; 86900; 86901; 87077; 87086; 87186; 93005; 93306; 96361; 96374; 99285

== ENCOUNTER 2018-03-08 21:13 | Inpatient (IN) | payer MEDICARE, OTHER ==
--- NOTE | 2018-03-08 22:05 | ED ---
Seizure HPI - General Chief Complaint: Seizure Stated Complaint: Seizure Time Seen by Provider: 03/08/18 21:39 Source: EMS Mode of arrival: EMS Limitations: altered mental status - History of Present Illness Initial Comments: This patient is a 62-year-old woman who is brought to be evaluated after she had a seizure tonight. Patient has known seizure disorder and takes Trileptal and Lamictal. History tonight comes from both the patient and her caregiver. Caregiver states that the patient is believed to be compliant with medication regimen. Tonight she was lying in bed and then had a seizure. The seizure was typical of the patient's usual seizures however it did last a bit longer than usual. Caregiver states the seizure lasted for about 12 hours but did stop. No known precipitating factors. She had had seizures in January and this was felt to be due to urinary tract infection that she was having problems with. Patient is denying any injury. She is denying symptoms of urinary tract or other infection. Per the caregiver and the patient she appears to be at her baseline. MD Complaint: seizure Onset/Timin -: hour(s) Description of Episode: loss of consciousness, tonic-clonic movement Duration of Episode: 12 -: minutes(s) Witnessed: yes - by bystander Trauma: No Seizure History: known seizure disorder Place: home Possible Precipitating Event: none Associated Symptoms: denies other symptoms Treatments Prior to Arrival: none - Related Data Home Medications Medication Instructions Recorded Confirmed Aspirin 325 mg PO DAILY@169902/13/14 03/08/18 Multivitamins, Thera [Multivitamin 1 tab PO DAILY@169902/13/14 03/08/18 (formulary)] OXcarbazepine [Trileptal] 300 mg PO TID@07,143,02/13/14 03/08/18 Polyethylene Glycol 3350 [Miralax] 17 gm PO DAILY@142902/13/14 03/08/18 Sertraline [Zoloft] 150 mg PO DAILY@69902/13/14 03/08/18 Verapamil HCl [Verapamil ER] 240 mg PO DAILY@69902/13/14 03/08/18 Ziprasidone [Geodon] 80 mg PO BID@07,02/13/14 03/08/18 lamoTRIgine [LaMICtal] 200 mg PO BID@1430,20 02/13/14 03/08/18 Clotrimazole [Clotrimazole AF] 1 applic TOPICAL HS@2000 01/19/18 03/08/18 Cranberry Fruit Extract [Cranberry] 1,000 mg PO DAILY@1700 01/19/18 03/08/18 LORazepam [Ativan] 0.5 mg PO BID PRN 01/19/18 03/08/18 lamoTRIgine [LaMICtal] 50 mg PO DAILY@0700 01/19/18 03/08/18 Previous Rx's Medication Instructions Recorded Ertapenem [INVanz] 1 gm IM DAILY #7 vial 03/12/18 Acetaminophen Tab [Tylenol] 650 mg PO Q6HR PRN tab 03/13/18 Digoxin [Lanoxin] 125 mcg PO DAILY tab 03/13/18 Ertapenem [INVanz] 1 gm IVPB DAILY vial 03/13/18 Allergies Allergy/AdvReac Type Severity Reaction Status Date / Time No Known Allergies Allergy Verified 03/08/18 21:53 Review of Systems ROS Statement: Those systems with pertinent positive or pertinent negative responses have been documented in the HPI. ROS Other: All systems not noted in ROS Statement are negative. Constitutional: Denies: fever, chills, weakness Eyes: Denies: vision change Respiratory: Denies: cough, dyspnea Cardiovascular: Denies: chest pain, palpitations Gastrointestinal: Denies: abdominal pain, vomiting, diarrhea Genitourinary: Denies: dysuria, frequency, hematuria Musculoskeletal: Denies: back pain Skin: Denies: rash Neurological: Denies: headache, weakness, numbness, confusion Past Medical History Past Medical History: Atrial Fibrillation, Hypertension, Pneumonia, Seizure Disorder Additional Past Medical History / Comment(s): Vertigo, paroxysmal atrial fibrillation, moderate intellectual disability, SEPTEMBER 2016 UTI AND BACTEREMIA History of Any Multi-Drug Resistant Organisms: ESBL Date of last positivie culture/infection: 01/19/18 MDRO Source:: urine - E coli ESBL Past Surgical History: No Surgical Hx Reported Past Anesthesia/Blood Transfusion Reactions: No Reported Reaction Additional Past Anesthesia/Blood Transfusion Reaction / Comment(s): animal care specialist says not that she knows of Past Psychological History: Schizoaffective Disorder Smoking Status: Never smoker Past Alcohol Use History: None Reported Past Drug Use History: None Reported - Past Family History Father Family Medical History: Cancer Additional Family Medical History / Comment(s): lymphoma Mother Family Medical History: AFIB, Congestive Heart Failure (CHF) General Exam Limitations: altered mental status General appearance: alert, in no apparent distress Head exam: Present: atraumatic, normocephalic Eye exam: Present: normal appearance. Absent: scleral icterus, conjunctival injection ENT exam: Present: normal oropharynx Neck exam: Present: full ROM. Absent: tenderness Respiratory exam: Present: normal lung sounds bilaterally. Absent: respiratory distress, wheezes, rales, rhonchi, stridor Cardiovascular Exam: Present: regular rate, normal rhythm, normal heart sounds. Absent: systolic murmur, diastolic murmur, rubs, gallop GI/Abdominal exam: Present: soft. Absent: distended, tenderness, guarding, rebound, rigid, mass Extremities exam: Present: normal inspection, normal capillary refill. Absent: pedal edema, calf tenderness Back exam: Present: normal inspection. Absent: CVA tenderness (R), CVA tenderness (L) Neurological exam: Present: alert, oriented X3, CN II-XII intact, normal gait. Absent: motor sensory deficit Skin exam: Present: warm, dry, intact, normal color. Absent: rash Course Vital Signs 03/08/18 03/08/18 03/09/18 21:24 21:52 02:05 Temperature 98.6 F 97.6 F Pulse Rate 85 82 73 Pulse Rate [ Pulse Oximetery ] Respiratory 16 16 16 Rate Blood Pressure 151/83 153/83 161/76 Blood Pressure [Left Arm] O2 Sat by Pulse 95 90 L 98 Oximetry 03/09/18 02:17 Temperature 97.4 F L Pulse Rate Pulse Rate [ 77 Pulse Oximetery ] Respiratory 20 Rate Blood Pressure Blood Pressure 121/70 [Left Arm] O2 Sat by Pulse 97 Oximetry Medical Decision Making - Medical Decision Making This patient is 62-year-old woman with history of seizure disorder. She had a seizure tonight, which sounds like it was not complicated and she has returned to her baseline. On the workup the patient is found to be somewhat hyponatremic and she'll be admitted to correct this. The patient did not have any further seizure activity in the emergency department. - Lab Data Result diagrams: 03/13/18 08:08 03/13/18 08:08 Lab Results 03/08/18 03/08/18 03/08/18 Range/Units 22:00 22:00 22:00 WBC 10.8 H (3.8-10.6) k/uL RBC 3.89 (3.80-5.40) m/uL Hgb 11.3 L (11.4-16.0) gm/dL Hct 33.3 L (34.0-46.0) % MCV 85.6 (80.0-100.0) fL MCH 29.1 (25.0-35.0) pg MCHC 34.0 (31.0-37.0) g/dL RDW 14.0 (11.5-15.5) % Plt Count 330 (150-450) k/uL Neutrophils % 64 % Lymphocytes % 23 % Monocytes % 8 % Eosinophils % 2 % Basophils % 1 % Neutrophils # 6.9 (1.3-7.7) k/uL Lymphocytes # 2.5 (1.0-4.8) k/uL Monocytes # 0.9 (0-1.0) k/uL Eosinophils # 0.2 (0-0.7) k/uL Basophils # 0.1 (0-0.2) k/uL Sodium 125 L (137-145) mmol/L Potassium 4.1 (3.5-5.1) mmol/L Chloride 90 L (98-107) mmol/L Carbon Dioxide 26 (22-30) mmol/L Anion Gap 9 mmol/L BUN 26 H (7-17) mg/dL Creatinine 1.02 (0.52-1.04) mg/dL Est GFR (CKD-EPI)AfAm 69 (>60 ml/min/1.73 sqM) Est GFR (CKD-EPI)NonAf 60 (>60 ml/min/1.73 sqM) Glucose 97 (74-99) mg/dL Calcium 9.9 (8.4-10.2) mg/dL Urine Color Colorless Urine Appearance Clear (Clear) Urine pH 7.0 (5.0-8.0) Ur Specific Hope 1.003 (1.001-1.035) Urine Protein Negative (Negative) Urine Glucose (UA) Negative (Negative) Urine Ketones Negative (Negative) Urine Blood Negative (Negative) Urine Nitrite Negative (Negative) Urine Bilirubin Negative (Negative) Urine Urobilinogen <2.0 (<2.0) mg/dL Ur Leukocyte Esterase Moderate H (Negative) Urine RBC <1 (0-5) /hpf Urine WBC 5 (0-5) /hpf Urine Bacteria Many H (None) /hpf Oxcarbazepine (10-35) ug/mL Lamotrigine (2.0-15.0) ug/mL 03/08/18 Range/Units 22:00 WBC (3.8-10.6) k/uL RBC (3.80-5.40) m/uL Hgb (11.4-16.0) gm/dL Hct (34.0-46.0) % MCV (80.0-100.0) fL MCH (25.0-35.0) pg MCHC (31.0-37.0) g/dL RDW (11.5-15.5) % Plt Count (150-450) k/uL Neutrophils % % Lymphocytes % % Monocytes % % Eosinophils % % Basophils % % Neutrophils # (1.3-7.7) k/uL Lymphocytes # (1.0-4.8) k/uL Monocytes # (0-1.0) k/uL Eosinophils # (0-0.7) k/uL Basophils # (0-0.2) k/uL Sodium (137-145) mmol/L Potassium (3.5-5.1) mmol/L Chloride (98-107) mmol/L Carbon Dioxide (22-30) mmol/L Anion Gap mmol/L BUN (7-17) mg/dL Creatinine (0.52-1.04) mg/dL Est GFR (CKD-EPI)AfAm (>60 ml/min/1.73 sqM) Est GFR (CKD-EPI)NonAf (>60 ml/min/1.73 sqM) Glucose (74-99) mg/dL Calcium (8.4-10.2) mg/dL Urine Color Urine Appearance (Clear) Urine pH (5.0-8.0) Ur Specific Hope (1.001-1.035) Urine Protein (Negative) Urine Glucose (UA) (Negative) Urine Ketones (Negative) Urine Blood (Negative) Urine Nitrite (Negative) Urine Bilirubin (Negative) Urine Urobilinogen (<2.0) mg/dL Ur Leukocyte Esterase (Negative) Urine RBC (0-5) /hpf Urine WBC (0-5) /hpf Urine Bacteria (None) /hpf Oxcarbazepine 24.0 (10-35) ug/mL Lamotrigine 4.9 (2.0-15.0) ug/mL Disposition Clinical Impression: Hyponatremia, Breakthrough seizure Disposition: ADMITTED IP TO THIS HOSP Condition: Fair Is patient prescribed a controlled substance at d/c from ED?: No
[2018-03-08 22:32] LABS: Basophils # (A) 0.1 k/uL (0-0.2); Basophils % (A) 1 %; Eosinophils # (A) 0.2 k/uL (0-0.7); Eosinophils % (A) 2 %; HCT 33.3 % (34.0-46.0); HGB 11.3 gm/dL (11.4-16.0); Lymphocytes # (A) 2.5 k/uL (1.0-4.8); Lymphocytes % (A) 23 %; MCH 29.1 pg (25.0-35.0); MCV 85.6 fL (80.0-100.0); Monocytes # (A) 0.9 k/uL (0-1.0); Monocytes % (A) 8 %; Neutrophils # (A) 6.9 k/uL (1.3-7.7); Neutrophils % (A) 64 %; Platelet Count 330 k/uL (150-450); RBC 3.89 m/uL (3.80-5.40); WBC 10.8 k/uL (3.8-10.6)
[2018-03-08 22:39] LABS: Appearance,Urine Clear (Clear); Bacteria,Urine Many /hpf; Bilirubin,Urine Negative (Negative); Blood,Urine Negative (Negative); Color,Urine Colorless; Glucose,Urine (UA) Negative (Negative); Ketones,Urine Negative (Negative); Leukocyte Esterase,Urine Moderate (Negative); Nitrite,Urine Negative (Negative); Protein,Urine Negative (Negative); RBC,Urine <1 /hpf (0-5); Specific Gravity,Urine 1.003 (1.001-1.035); Urobilinogen,Urine <2.0 mg/dL (<2.0); WBC,Urine 5 /hpf (0-5)
[2018-03-08 22:52] LABS: Calcium 9.9 mg/dL (8.4-10.2); Potassium 4.1 mmol/L (3.5-5.1)
[2018-03-08] MEDS ORDERED: SODIUM CHLORIDE 0.9% 1,000 ML IV ONE (23:53)
[2018-03-09] MEDS ORDERED: ACETAMINOPHEN TAB 325 MG TAB PO PRN (01:19)
[2018-03-09] MEDS ORDERED: NALOXONE 0.4 MG/ML 1 ML VIAL IV PRN (01:19)
[2018-03-09] MEDS ORDERED: LORazepam 0.5 MG TAB PO PRN (01:57)
[2018-03-09] MEDS ORDERED: LORazepam 2 MG/ML INJ IV PRN (02:13)
[2018-03-09] MEDS: SODIUM CHLORIDE 0.9% 1,000 ML IV SCH ×4 (02:30→21:03)
[2018-03-09 03:14] VITALS: BMI 24.5
[2018-03-09] MEDS: OXcarbazepine 300 MG TAB PO SCH ×3 (06:35→21:03)
[2018-03-09] MEDS: ZIPRASIDONE 80 MG CAP PO SCH ×2 (06:35→21:05)
[2018-03-09] MEDS: SERTRALINE 50 MG TAB PO SCH (06:35)
[2018-03-09] MEDS: VERAPAMIL SR 240 MG TABLET.ER PO SCH (06:36)
[2018-03-09] MEDS: DIGOXIN 125 MCG TAB PO SCH ×2 (06:36→21:05)
[2018-03-09] MEDS: lamoTRIgine 25 MG TAB PO SCH (06:37)
[2018-03-09] MEDS: NITROFURANTOIN MONOHYD/M-CRYST 100 MG CAP PO SCH (09:58)
[2018-03-09] MEDS: lamoTRIgine 100 MG TAB PO SCH ×2 (14:12→21:04)
[2018-03-09] MEDS: POLYETHYLENE GLYCOL 3350 17 GM POWD.PACK PO SCH (14:12)
--- NOTE | 2018-03-09 16:48 | HP ---
HISTORY AND PHYSICAL DATE OF SERVICE: 03/09/2018. DATE OF ADMISSION: 03/08/2018 DATA: She is 62 years old white female and date of is 1955. The patient brought to the emergency room where she was seen and evaluated and subsequently they called me being on-call for Dr. Hernandez, her attending physician, and I did see the patient subsequently. The chief complaint was questionable seizures breakthrough. 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 HISTORY OF PRESENT ILLNESS: 62-year-old white female brought to be evaluated of seizure disorder after breakthrough seizure. The patient has been on a Trileptal and Lamictal. At that time we could not obtain who is the neurologist by the ER or myself and patient could not give any history. The patient was there in the ER with a caregiver or who stated the complaint with medication regimen and the patient was lying in bed and then had a seizure. The seizure was typical of one of the usual seizure; however, it lasted longer time than the usual. The story is not clearly reliable as she stated the seizures lasted for 12 hours and did not stop. However, in the ER, patient without any seizure with no history of status epilepticus, but she had a history of seizure in January and they felt at that time that the urinary tract infection could be causing this problem. They denied at that time in the ER, any injury or head injury and they denied also any symptoms of urinary tract infection recently and the patient appeared to be at baseline. Past medical history of seizure and that was usually loss of consciousness and tonic clonic movement. Seizure witnessed by the caregiver. At the time of the examination her caregiver was not available. Also, her sister was not available. New list of medication: She was on aspirin 325 mg daily, multivitamin once a day and Trileptal 300 mg t.i.d., polyethylene glycol 17 g daily, sertraline 150 mg daily and Verapamil 240 mg daily, Geodon 80 mg twice a day. She is also on Lamictal 200 mg twice a day and Lanoxin 1.25 mg twice a day. She is also on clotrimazole AF and that is topical. She is on Cranberry fruit extract 1000 mg daily, lorazepam, Ativan 0.5 mg twice a day. The Lamictal 50 mg daily at 7:00 a.m. Other than the previous to 200 mg twice a day. She is on nitrofurantoin macro crystals 100 mg daily. ALLERGIES: Allergy is unknown. REVIEW OF SYSTEMS: The patient could not really communicate. She does not know much. She could not recall the reason that she has been in the hospital except she denied fever, chills, or weakness per the ER and no further information can be obtained and we are trying to get the family member. PAST MEDICAL HISTORY: Atrial fibrillation, hypertension, pneumonia, seizure disorder. She has also history of vertigo and paroxysmal atrial fibrillation and she has intellectual disability. UTI in September 2016 and she had history of drug resistant ESBL in the past, the E coli was ESBL in the past. No history of blood transfusion and psychologically she had schizoaffective disorder. FAMILY HISTORY: Has a family history of lymphoma and congestive heart failure. PHYSICAL EXAMINATION: The patient was conscious, alert, but confused x3. Her vital sign indicating that on admission her temperature was 97.7, pulse 81, respiratory rate 20, blood pressure 134/73, and she is 97% on room air. Her blood pressure through the day she has been controlled very well. Her laboratory Indicating white count 10.8, hemoglobin 11.3, hematocrit 33.3, and she had a chemistry indicating sodium 125 and potassium 4.1, chloride 90 and BUN of 26 and creatinine 1.02. She had estimated glomerular filtration rate for non- is 60. She has also a urinalysis and the urinalysis showed moderate leukocytosis and bacteria was many. I am not sure that culture was ordered in the emergency room. On the physical examination as the patient is conscious, alert, but confused and with the underlying mild to moderate intellectual disability. 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 Head was normocephalic, atraumatic and pupils equal, reactive. No icterus. No pale mucosa. Her ENT was negative and normal oropharynx. Able to swallow and is able to speak. Neck was supple. Normal range of motion and no tenderness and no bruits. The lung examination was clear to auscultation and percussion. No wheezes, no rhonchi. The heart was regular sinus rhythm. However, she has a history of atrial fibrillation. GI: She had normal bowel sounds and no masses. No tenderness in the abdomen. No tenderness on the spine. Neurologically, she is mildly confused, however, she is oriented, able to answer some questions. However, she could not give the history. Her skin is warm and intact and her vital signs stable. ASSESSMENT: 1. Underlying seizure breakthrough. 2. Intellectual disability. 3. Living in the long-term and her laboratory indicating with the assessment hyponatremia could be secondary to dehydration and mild anemia with minimal elevation of WBC. Rule out urinary tract infection. PLAN: 1. If not done a urine culture and sensitivity. We will be repeating the urine for culture and sensitivity. 2. Consultation with Dr. Esquivels, neurology for evaluation of the breakthrough seizure and adjusting her neurological medication. MMODL / IJN: [id number] /
[2018-03-09] MEDS ORDERED: CRANBERRY FRUIT EXTRACT 1000 MG PO SCH (17:00)
[2018-03-09] MEDS: MULTIVITAMINS, THERA 1 EACH TAB PO SCH (17:16)
[2018-03-09] MEDS: ASPIRIN 325 MG TAB PO SCH (17:16)
--- NOTE | 2018-03-09 19:50 | P.CNNES ---
History of Present Illness Consult date: 03/09/18 History of Present Illness: The patient is a 62-year-old woman with epilepsy. History is obtained from the chart and from the patient's caregiver who was at her bedside. Apparently last night the patient was in her usual state of health and she had a grand mal seizure. The caregiver does not know exactly when it began but she didn't come into the room during the seizure. She thinks the seizure may have lasted about 12 minutes. The patient is currently laying in bed in no acute distress. She denies any headache or pain in the limbs. Apparently the patient did have some blood in her mouth when she had the seizure last night. She was taken to [facility]. She was admitted to the hospital through the emergency room with a diagnosis of seizures hyponatremia and dehydration. Ledalfreda requested to see the patient today regarding seizures. The patient has had no further seizures in the hospital. Her sodium level was 125 on admission. She has had recurrent UTIs and is on prolonged antibiotics according to her caregiver. Review of Systems ROS unobtainable: due to mental status Past Medical History Past Medical History: Atrial Fibrillation, Hypertension, Pneumonia, Seizure Disorder Additional Past Medical History / Comment(s): Vertigo, paroxysmal atrial fibrillation, moderate intellectual disability, SEPTEMBER 2016 UTI AND BACTEREMIA History of Any Multi-Drug Resistant Organisms: ESBL Date of last positivie culture/infection: 01/19/18 MDRO Source:: urine - E coli ESBL Past Surgical History: No Surgical Hx Reported Past Anesthesia/Blood Transfusion Reactions: No Reported Reaction Additional Past Anesthesia/Blood Transfusion Reaction / Comment(s): post acute care nurse says not that she knows of Past Psychological History: Schizoaffective Disorder Additional Psychological History / Comment(s): OCD, auditory hallucinations, needs reassurance that she is ok. depressive type schizoaffective Smoking Status: Never smoker Past Alcohol Use History: None Reported Additional Past Alcohol Use History / Comment(s): Patient is a lifelong nonsmoker, no illicit drug use, alcohol use. Patient lives in her own apartment with a roommate. They have 24-hour care. There are no pets in the home. No recent travel. Past Drug Use History: None Reported - Past Family History Father Family Medical History: Cancer Additional Family Medical History / Comment(s): lymphoma Mother Family Medical History: AFIB, Congestive Heart Failure (CHF) Medications and Allergies Home Medications Medication Instructions Recorded Confirmed Type Aspirin 325 mg PO DAILY@169902/13/14 03/08/18 History Multivitamins, Thera [Multivitamin 1 tab PO DAILY@169902/13/14 03/08/18 History (formulary)] OXcarbazepine [Trileptal] 300 mg PO TID@,1429,02/13/14 03/08/18 History Polyethylene Glycol 3350 [Miralax] 17 gm PO DAILY@142902/13/14 03/08/18 History Sertraline [Zoloft] 150 mg PO DAILY@69902/13/14 03/08/18 History Verapamil HCl [Verapamil ER] 240 mg PO DAILY@69902/13/14 03/08/18 History Ziprasidone [Geodon] 80 mg PO BID@02/13/14 03/08/18 History lamoTRIgine [LaMICtal] 200 mg PO BID@1429,02/13/14 03/08/18 History Digoxin [Lanoxin] 125 mcg PO BID@09/06/16 03/08/18 History Clotrimazole [Clotrimazole AF] 1 applic TOPICAL HS@199901/19/18 03/08/18 History Cranberry Fruit Extract [Cranberry] 1,000 mg PO DAILY@169901/19/18 03/08/18 History LORazepam [Ativan] 0.5 mg PO BID PRN 01/19/18 03/08/18 History lamoTRIgine [LaMICtal] 50 mg PO DAILY@69901/19/18 03/08/18 History Nitrofurantoin Macrocrystal 100 mg PO DAILY 03/08/18 03/08/18 History [Macrodantin] Allergies Allergy/AdvReac Type Severity Reaction Status Date / Time No Known Allergies Allergy Verified 03/08/18 21:53 Physical Examination - Vital Signs Vital Signs: Vital Signs Temp Pulse Pulse Resp BP BP BP 03/09/18 16:43 78 16 123/72 03/09/18 12:00 78 17 130/67 03/09/18 10:14 97.4 F L 85 16 127/62 03/09/18 08:53 86 18 03/09/18 04:00 97.7 F 81 20 134/73 03/09/18 02:17 97.4 F L 77 20 121/70 03/09/18 02:05 97.6 F 73 16 161/76 03/08/18 21:52 82 16 153/83 03/08/18 21:24 98.6 F 85 16 151/83 Pulse Ox 03/09/18 16:43 98 03/09/18 12:00 99 03/09/18 10:14 96 03/09/18 08:53 03/09/18 04:00 97 03/09/18 02:17 97 03/09/18 02:05 98 03/08/18 21:52 90 L 03/08/18 21:24 95 Intake and Output 03/09/18 03/09/18 03/09/18 06:59 14:59 22:59 Intake Total 1000 360 720 Balance 1000 360 720 Intake: Intake, IV Titration 600 Amount Sodium Chloride 0.9% 1, 600 000 ml @ 150 mls/hr IV . Q6H40M [facility] Rx#:[id number] Oral 400 360 720 Other: Voiding Method Toilet Toilet Toilet # Voids 2 5 2 # Bowel Movements 0 0 Weight 67.6 kg - Constitutional General appearance: average body habitus - EENT EENT: PERRL, hearing intact, vision intact - Respiratory Respiratory: lungs clear - Cardiovascular Cardiovascular: regular rate, normal S1, normal S2 - Integumentary Integumentary: normal - Neurologic Neurologic examination Mental status: She was awake she was alert she was oriented to person. There was mild cognitive impairment she followed commands and she was cooperative. Next Cranial nerves II through XII grossly intact next Motor examination she was able to move all 4 extremities equally Coordination: Difficult to assess Results - Laboratory Findings CBC and BMP: 03/08/18 22:00 03/08/18 22:00 Abnormal Lab Findings: Abnormal Labs 03/08/18 03/08/18 03/08/18 22:00 22:00 22:00 WBC 10.8 H Hgb 11.3 L Hct 33.3 L Sodium 125 L Chloride 90 L BUN 26 H Ur Leukocyte Esterase Moderate H Urine Bacteria Many H Assessment and Plan (1) Breakthrough seizure Current Visit: Yes Status: Acute SNOMED Code(s): 348759923 (2) Hyponatremia Current Visit: Yes Status: Acute SNOMED Code(s): 06416883 (3) Recurrent UTI Current Visit: Yes Status: Acute SNOMED Code(s): 240408974 Plan: The patient is a 62-year-old woman with history of epilepsy and cerebellar atrophy and developmental delay who presents to the hospital with breakthrough seizure occurring last night. The patient has a history of recurrent UTIs. The patient is currently awake alert and without any complaint. She is on Lamictal and Trileptal. Trileptal could be contributing to her hyponatremia and dose was will be changed. A trough Lamictal will level will be obtained in the a.m.
[2018-03-09] MEDS: ENOXAPARIN 30 MG/0.3 ML SYRINGE SQ SCH (21:02)
[2018-03-09] MEDS: CLOTRIMAZOLE 1% CREAM 15 GM TUBE TOPICAL SCH (21:05)
[2018-03-09] MEDS: cefTRIAXone IN SWFI 1,000 MG/10 ML SYRINGE IVP SCH (22:36)
[2018-03-10] MEDS: SODIUM CHLORIDE 0.9% 1,000 ML IV SCH ×2 (06:06→21:07)
[2018-03-10] MEDS: DIGOXIN 125 MCG TAB PO SCH ×2 (06:06→21:09)
[2018-03-10] MEDS: ZIPRASIDONE 80 MG CAP PO SCH ×2 (06:07→21:10)
[2018-03-10] MEDS: SERTRALINE 50 MG TAB PO SCH (06:08)
[2018-03-10] MEDS: lamoTRIgine 25 MG TAB PO SCH (06:09)
[2018-03-10] MEDS: VERAPAMIL SR 240 MG TABLET.ER PO SCH (06:09)
[2018-03-10 06:46] LABS: Basophils # (A) 0.1 k/uL (0-0.2); Basophils % (A) 0 %; Eosinophils # (A) 0.1 k/uL (0-0.7); Eosinophils % (A) 1 %; HCT 33.9 % (34.0-46.0); Lymphocytes % (A) 17 %; MCH 28.8 pg (25.0-35.0); MCHC 32.3 g/dL (31.0-37.0); MCV 89.3 fL (80.0-100.0); Monocytes # (A) 0.7 k/uL (0-1.0); Monocytes % (A) 7 %; Neutrophils # (A) 8.1 k/uL (1.3-7.7); Neutrophils % (A) 71 %; Platelet Count 318 k/uL (150-450); RDW 14.4 % (11.5-15.5); WBC 11.4 k/uL (3.8-10.6)
[2018-03-10 06:56] LABS: Calcium 9.8 mg/dL (8.4-10.2); Magnesium 1.8 mg/dL (1.6-2.3); Potassium 4.8 mmol/L (3.5-5.1)
[2018-03-10] MEDS: ENOXAPARIN 30 MG/0.3 ML SYRINGE SQ SCH (08:40)
[2018-03-10] MEDS: NITROFURANTOIN MONOHYD/M-CRYST 100 MG CAP PO SCH (08:43)
[2018-03-10] MEDS: OXcarbazepine 300 MG TAB PO SCH ×2 (08:43→21:10)
[2018-03-10 09:00] LABS: Lamotrigine (Lamictal) 4.9 ug/mL (2.0-15.0)
[2018-03-10] MEDS: POLYETHYLENE GLYCOL 3350 17 GM POWD.PACK PO SCH (14:50)
[2018-03-10] MEDS: lamoTRIgine 100 MG TAB PO SCH ×2 (14:50→21:09)
[2018-03-10] MEDS: ASPIRIN 325 MG TAB PO SCH (17:29)
[2018-03-10] MEDS: MULTIVITAMINS, THERA 1 EACH TAB PO SCH (17:29)
--- NOTE | 2018-03-10 17:43 | PN ---
PROGRESS NOTE FULL CODE. Height is 5 feet 4 inches, weight 65.3 kg, BSA 1.70 m2, BMI 24.7 kg/m2. Her allergies are unknown. Today the patient was seen evaluated. Discussed with her sister, Karen. She is POA and caregiver. We discussed the plan as well. Dr. Jana García did see the patient. Her impression is breakthrough seizures and she had hyponatremia on admission and probably UTI. She did order a CT scan, indicating the history of epilepsy and cerebellar atrophy and developmental delay with the presentation of a breakthrough seizure. The patient has history of recurrent UTI and she is awake, alert, without any complaint. She is on Lamictal and Trileptal. The Trileptal can cause hyponatremia. The dose will be changed. Trough Lamictal level obtained in a.m. Today on the examination and also discussion with her sister, her vital signs were stable with temperature 97.1, pulse rate 77 beats per minute, respiratory rate 16, blood pressure ranging between 136/79 with mean 98 and 127/71 with mean 89. Her oxygen is normal, 97. Laboratory done today indicates white count 11.4, hemoglobin 11, hematocrit 33.9. Chemistry shows sodium 142, potassium 4.8, chloride 107, carbon dioxide 25, anion gap of 10, BUN 20 and creatinine 1.19. Her estimated glomerular filtration rate for non- is 50, indicating probably chronic kidney disease, stage IIIA and possibly associated with mild dehydration or diuretics or not enough oral intake. Her magnesium is normal 1.8 and calcium is normal at 9.8. Glucose also was normal. Urine culture is in progress and the patient was started on Rocephin 1 gram daily. Her Lamictal level was 4.9, which is therapeutic between 2 and 15. As mentioned, the antibiotic which was ordered until we have the urine culture which is pending. On examination, patient is conscious, alert but confused, disoriented. Pupils equal, reactive. Conjunctivae pink. Sclerae nonicteric. Neck was supple. No JVD. Oropharynx is negative and she is able to eat and swallow. No coughing. No choking. Chest was clear to auscultation and percussion. The heart was regular sinus rhythm and the abdomen is soft. Positive bowel sounds. EXTREMITIES: No edema. Patient in bed with the DVT prophylaxis as well and precautions for seizure with the underlying history of breakthrough seizure. ASSESSMENT: 1. History of seizure disorder and epilepsy and the possibility of the caregiver having witnessed seizure. 2. Hyponatremia that is secondary to Trileptal and Dr. García will try to adjust the medication. 3. Chronic kidney disease, stage III, with probable dehydration. PLAN: We will be checking tomorrow the labs with BMP and a CBC subsequently. If the patient is stable and no further seizure and if Dr. García says no further treatment is needed, we will be discharging the patient. Attending physician is Dr. Hernandez. As mentioned, blood pressure is controlled very well with the current treatment. MMODL / IJN: [id number] /
[2018-03-10] MEDS: CLOTRIMAZOLE 1% CREAM 15 GM TUBE TOPICAL SCH (21:09)
[2018-03-10] MEDS: cefTRIAXone IN SWFI 1,000 MG/10 ML SYRINGE IVP SCH (21:15)
[2018-03-11] MEDS: DIGOXIN 125 MCG TAB PO SCH ×2 (06:19→20:55)
[2018-03-11] MEDS: lamoTRIgine 25 MG TAB PO SCH (06:19)
[2018-03-11] MEDS: SERTRALINE 50 MG TAB PO SCH (06:20)
[2018-03-11] MEDS: ZIPRASIDONE 80 MG CAP PO SCH ×2 (06:20→20:56)
[2018-03-11] MEDS: VERAPAMIL SR 240 MG TABLET.ER PO SCH (06:21)
[2018-03-11 07:03] LABS: Basophils # (A) 0.1 k/uL (0-0.2); Basophils % (A) 1 %; Eosinophils # (A) 0.1 k/uL (0-0.7); Eosinophils % (A) 1 %; HGB 11.5 gm/dL (11.4-16.0); Lymphocytes # (A) 1.8 k/uL (1.0-4.8); Lymphocytes % (A) 15 %; MCH 29.1 pg (25.0-35.0); MCHC 32.8 g/dL (31.0-37.0); Mean Platelet Volume 6.2; Monocytes # (A) 0.8 k/uL (0-1.0); Monocytes % (A) 6 %; Neutrophils # (A) 8.8 k/uL (1.3-7.7); Neutrophils % (A) 73 %; Platelet Count 304 k/uL (150-450); RBC 3.94 m/uL (3.80-5.40); RDW 14.3 % (11.5-15.5)
[2018-03-11 07:10] LABS: Potassium 4.8 mmol/L (3.5-5.1)
[2018-03-11] MEDS: OXcarbazepine 300 MG TAB PO SCH ×2 (08:15→20:56)
[2018-03-11] MEDS: ENOXAPARIN 30 MG/0.3 ML SYRINGE SQ SCH (08:15)
[2018-03-11] MEDS: NITROFURANTOIN MONOHYD/M-CRYST 100 MG CAP PO SCH (08:15)
[2018-03-11] MEDS: POLYETHYLENE GLYCOL 3350 17 GM POWD.PACK PO SCH (14:15)
[2018-03-11] MEDS: lamoTRIgine 100 MG TAB PO SCH ×2 (14:16→20:55)
[2018-03-11] MEDS: SODIUM CHLORIDE 0.9% 1,000 ML IV SCH (14:16)
--- NOTE | 2018-03-11 15:50 | P.PN ---
Subjective Progress Note Date: 03/11/18 The patient is a 62-year-old woman with epilepsy and intellectual disability who presented to the hospital with hyponatremia and seizure. The patient was also admitted with UTI. Trileptal dose has been reduced. The patient is not had any further seizures. She has no specific complaints today. She states she is feeling fine. The patient had follow-up Trileptal and Lamictal levels drawn results still pending. Patient is tolerating the reduction in Trileptal. Also plan is to increase Lamictal dose. She is currently on Lamictal 200 mg twice a day and 50g once a day. We will increase the dose by 25 mg along with 200 twice a day and 50 mg once a day Objective - Vital Signs Vital signs: Vital Signs Temp 97.5 F L 03/11/18 15:14 Pulse 80 03/11/18 15:14 Resp 18 03/11/18 15:14 BP 150/70 03/11/18 15:14 Pulse Ox 98 03/11/18 15:14 Intake & Output 03/10/18 03/11/18 03/11/18 18:59 06:59 18:59 Intake Total 480 1030 Balance 480 1030 Weight 64.2 kg Intake: Intake, IV Titration 800 Amount Sodium Chloride 0.9% 1, 800 000 ml @ 50 mls/hr IV . Q20H [facility] Rx#:[id number] Oral 480 230 Other: Voiding Method Toilet Toilet # Voids 1 1 1 # Bowel Movements 1 - Constitutional General appearance: Present: cooperative - EENT Eyes: Present: PERRLA ENT: Present: hearing grossly normal - Respiratory Respiratory: bilateral: CTA - Cardiovascular Rhythm: regular - Neurologic Neurologic: Present: CNII-XII intact - Musculoskeletal Musculoskeletal: Present: strength equal bilaterally - Psychiatric Psychiatric: Present: appropriate affect - Labs CBC & Chem 7: 03/11/18 06:26 03/11/18 06:26 Labs: Abnormal Lab Results - Last 24 Hours (Table) 03/11/18 03/11/18 Range/Units 06:26 06:26 WBC 12.0 H (3.8-10.6) k/uL Neutrophils # 8.8 H (1.3-7.7) k/uL BUN 18 H (7-17) mg/dL Creatinine 1.20 H (0.52-1.04) mg/dL Glucose 100 H (74-99) mg/dL Microbiology - Last 24 Hours (Table) 03/09/18 20:30 Urine Culture - Preliminary Urine,Voided Gram Neg Bacilli Assessment and Plan (1) Breakthrough seizure Current Visit: Yes Status: Acute SNOMED Code(s): 698659183 (2) Hyponatremia Current Visit: Yes Status: Acute SNOMED Code(s): 29222491 (3) Recurrent UTI Current Visit: Yes Status: Acute SNOMED Code(s): 534705642 Plan: The patient is a 62-year-old woman with history of epilepsy and cerebellar atrophy and developmental delay who presents to the hospital with breakthrough seizure. The patient has been doing well in the hospital and has not had any recurrent seizures. Will make the adjustment in her Lamictal and continue Trileptal at present dose.
[2018-03-11] MEDS: ASPIRIN 325 MG TAB PO SCH (17:16)
[2018-03-11] MEDS: MULTIVITAMINS, THERA 1 EACH TAB PO SCH (17:16)
--- NOTE | 2018-03-11 17:23 | PN ---
PROGRESS NOTE DATE OF SERVICE: 03/11/2018 She is a FULL CODE. She is a 62-year-old white female and date of is 1955. Currently in 670 bed 1. DATA: She has height 5 feet 4 inches, weight 64.2 kg. BSA 1.69 m2, BMI 24.3 kg/m squared. ALLERGY: Unknown. Patient is seen today, evaluated discussed with her nurse as well and I did talk to her sister, Karen, who is a nurse, used to be working in the hospitals around [place] as well and she understands the patient. She was sent from the [place] [facility] and because of the breakthrough seizure. She had previous admission in January and was regarding the UTI and on this admission, we did the urinalysis to see if that is recurrent and actually it was recurrent, but we do not have the actual organisms. I did talk to the laboratory and they said the culture is not available and the sensitivity not available and they will call Nate to clarify the issue; however, is not available to change the antibiotic, especially if we have the laboratory and I see the white count went up from 10.8 to 11.4 to 12, which increased my concern. On the laboratory, her hemoglobin is stable at 11.5 with hematocrit 35, and her neutrophil was elevated 8.8, and her chemistry, the sodium was 140, yesterday was 142, and we started to cut down on the IV fluid as well. Her potassium is 4.8 with chloride 106, carbon dioxide 26. Her BUN is 18 and her creatinine has started to climb up, 1.2. Her estimated glomerular filtration rate for non- on admission was 60 and went down to 50 and now is 49 and her glucose was 100, which is not actually bad and she is able to eat and drink. Her calcium is 10.0. Her urinalysis was markedly for leukocyte esterase was moderate and many bacteria and her level for medication that currently taken from Psychiatry and that was oxcarbazepine level and that level ordered by Dr. Jana García and it was 24 with a range 10-35 and that is confirming the level was okay. Second is lamotrigine and that was 4.9 with a range 2-15, which is also a good range. The microbiology indicating the patient has gram-negative bacilli. However, the sensitivity was not available to understand. She currently on Rocephin; however, could be the Rocephin not effective enough and needs further treatment. No seizure disorder has been happening in the presence of her hospitalization so far and no breakthrough seizures. She had seizure precaution and we are continuing her medication. As of current vital sign on exam, she has a blood pressure 116/70 with a mean 85 and the temperature 97 and pulse rate 71, respiratory rate 18 and blood pressure as mentioned 116/70 with the prior blood pressure 120/62 and currently stable general condition. As I talk to her today, she has zero complaints. No evidence of any associated sepsis and no cough, no expectoration. HEENT was negative. Oropharynx was normal and she is able to eat and swallow and no choking. Neck was supple. No JVD. No thyromegaly. No lymphadenopathy. The chest was clear to auscultation and percussion and the heart was regular sinus rhythm. We did an EKG and found sinus rhythm and we had a previous echo and she had a good ejection fraction and no evidence of atrial fibrillation at this time. With these findings, we are suspicious of the urine infection not responding to the Rocephin and the patient has no allergy and until we get the culture, which the culture, I did talk to the lab and found that they need to call to see when will be coming back. For this reason, patient actually admitted on the date of 03/08 and this is the 3rd day and the date is 03/11 with no improvement with the Rocephin. Empirically, we will be changing the Rocephin to Zosyn IV piggyback and meanwhile wait for the result as well as recheck again the hemoglobin and hematocrit. With the assessment: 1. Breakthrough seizure. 2. Urinary tract infection. 3. This is the second admission for urinary tract infection since January and also we will be possibility of medication needs to be adjusted that will be by Dr. Jana García. Further treatment depends on the patient's condition. Hopefully, we anticipate tomorrow we have some information from the laboratory regarding the culture. MMODL / IJN: [id number] /
[2018-03-11] MEDS: CLOTRIMAZOLE 1% CREAM 15 GM TUBE TOPICAL SCH (20:55)
[2018-03-11] MEDS: cefTRIAXone IN SWFI 1,000 MG/10 ML SYRINGE IVP SCH (20:58)
[2018-03-12] MEDS: lamoTRIgine 25 MG TAB PO SCH ×2 (07:00→07:57)
[2018-03-12] MEDS: DIGOXIN 125 MCG TAB PO SCH ×2 (07:00→20:31)
[2018-03-12] MEDS: ZIPRASIDONE 80 MG CAP PO SCH ×2 (07:00→20:31)
[2018-03-12] MEDS: SERTRALINE 50 MG TAB PO SCH (07:01)
[2018-03-12] MEDS: VERAPAMIL SR 240 MG TABLET.ER PO SCH (07:01)
[2018-03-12] MEDS: OXcarbazepine 300 MG TAB PO SCH ×2 (07:56→20:31)
[2018-03-12] MEDS: ENOXAPARIN 30 MG/0.3 ML SYRINGE SQ SCH (07:57)
[2018-03-12] MEDS: SODIUM CHLORIDE 0.9% 1,000 ML IV SCH ×3 (07:57→23:54)
[2018-03-12] MEDS: ERTAPENEM 1 GM in SODIUM CHLORIDE 0.9% 50 ML IVPB SCH (09:01)
[2018-03-12 11:31] LABS: Basophils # (A) 0.1 k/uL (0-0.2); Basophils % (A) 1 %; Eosinophils # (A) 0.1 k/uL (0-0.7); Eosinophils % (A) 1 %; HGB 11.5 gm/dL (11.4-16.0); Lymphocytes # (A) 1.8 k/uL (1.0-4.8); Lymphocytes % (A) 16 %; MCH 28.7 pg (25.0-35.0); MCV 89.5 fL (80.0-100.0); Monocytes # (A) 0.8 k/uL (0-1.0); Monocytes % (A) 7 %; Neutrophils # (A) 7.8 k/uL (1.3-7.7); Neutrophils % (A) 71 %; Platelet Count 317 k/uL (150-450); RBC 4.03 m/uL (3.80-5.40); RDW 14.2 % (11.5-15.5)
[2018-03-12 11:39] LABS: Calcium 10.1 mg/dL (8.4-10.2); Potassium 4.6 mmol/L (3.5-5.1)
--- NOTE | 2018-03-12 13:10 | PN ---
PROGRESS NOTE She is FULL CODE and she is a 62-year-old white female. ALLERGIES: Unknown. She is admitted with breakthrough seizure and found that subsequently she had UTI and this UTI found subsequently appeared today that she had more than 100,000 E. coli and that is ESBL. They called these during the night and Dr. Gaudencio Diane, the on-call, and subsequently he consulted Dr. Benedicto Mckeon, Infectious Disease, and the patient was started on the appropriate ertapenem 1 g daily. According to the sensitivity that sensitive to less than or equal to 1 and was appropriately by Dr. Mckeon. He will be seeing her today. He did not see her yet from last night today and subsequently he will be having more decisions to make. When she came in we found also that she was hyponatremic which could be associated with psychiatric medication with have intellectual disability and lives in longterm. The patient is seen today. She is conscious, alert, oriented. She has no arrhythmias and her vital signs indicating 97.8, and pulse 85, respiratory rate 18. Her blood pressure is stable 111/74 and 86. The oxygen on the room air 97%. The new result today, her white count is improving, is 11 and her hemoglobin is 11.5 with hematocrit 36. Her BUN is 22 and creatinine 1.33 and with the estimated glomerular filtration rate has been dropped. We will be starting her to continue with the IV fluid and we will be with possibility on prerenal azotemia and with the underlying urinary tract infection. Patient still needs IV antibiotics. Dr. Mckeon will see her today and will be sure that she had IV fluid and will continue hydration. Patient on examination, conscious, alert, oriented. Oropharynx was negative. She is awake, alert, able to communicate. However, she has intellectual disability and she has a seizure precaution and there is no seizures so far and cleared by Dr. Jana García, neurology. The chest was clear. No wheezes, no rhonchi. The heart was regular sinus rhythm and the abdomen is soft, nontender, positive bowel sounds. She is able to walk to the bathroom. Extremities, no edema. Positive pulses. Neurologically stable. No lateralizing sign. ASSESSMENT AND PLAN: 1. She has breakthrough seizures by the history only. No seizures during the hospital stay. Her laboratory for this medication is normal. 2. Underlying history of irregularity of the heart, but with the EKG is normal sinus and no evidence of atrial fibrillation. 3. Urinary tract infection with required IV antibiotic with the ESBL with the consultation with Dr. Mckeon and patient on ertapenem which is very good sensitive to the E. coli. However, Rocephin was insensitive or resistant and that has been discontinued. Patient continued on her current medication. The abdomen is soft, nontender, positive bowel sound and no diarrhea and extremities is no edema and positive pulses. With these finding, we will be plan to, as no hemodynamic abnormalities, we will increase the IV fluid as well as we will transfer to med/surg floor if the bed is needed. MMODL / IJN: [id number] /
[2018-03-12] MEDS: POLYETHYLENE GLYCOL 3350 17 GM POWD.PACK PO SCH (15:00)
[2018-03-12] MEDS: lamoTRIgine 100 MG TAB PO SCH ×2 (15:01→20:31)
--- NOTE | 2018-03-12 16:18 | P.CONS ---
History of Present Illness - Reason for Consult Consult date: 03/12/18 - Chief Complaint altered mental status, seizure at home - History of Present Illness 62 year old female who has developmental delays has 24-hour care in a private apartment. Her caregiver was concerned as to a seizure and EMS was called and the patient was brought to hospital. Upon arrival there was evidence of some altered mental status. No further seizures were noted that had been witnessed in the home setting. Review of the records reveals the last time she was hospitalized she did have a urinary tract infection and ESBL E. coli was isolated. With concerns to this the infectious diseases evaluation was requested. This time the patient is arousable but gives no specific history. She seems to be comfortable and was looking forward to having a meal. It is related that she is somewhat independent when she is in her home situation in that caregivers make meals but she does self-feed and requires some assistance for her toileting. Review of Systems ROS unobtainable: due to mental status Past Medical History Past Medical History: Atrial Fibrillation, Hypertension, Pneumonia, Seizure Disorder Additional Past Medical History / Comment(s): Vertigo, paroxysmal atrial fibrillation, moderate intellectual disability, SEPTEMBER 2016 UTI AND BACTEREMIA History of Any Multi-Drug Resistant Organisms: ESBL Year Discovered:: 03/09/18 MDRO Source:: urine - E coli ESBL Past Surgical History: No Surgical Hx Reported Past Anesthesia/Blood Transfusion Reactions: No Reported Reaction Additional Past Anesthesia/Blood Transfusion Reaction / Comm: rn homecare says not that she knows of Past Psychological History: Schizoaffective Disorder Additional Psychological History / Comment(s): OCD, auditory hallucinations, needs reassurance that she is ok. depressive type schizoaffective. Single. Has a sister as her guardian. Does have 24-hour care in her apartment. No animals in the apartment. No travel history Smoking Status: Never smoker Past Alcohol Use History: None Reported Additional Past Alcohol Use History / Comment(s): Patient is a lifelong nonsmoker, no illicit drug use, alcohol use. Patient lives in her own apartment with a roommate. They have 24-hour care. There are no pets in the home. No recent travel. Past Drug Use History: None Reported - Past Family History Father Family Medical History: Cancer Additional Family Medical History / Comment(s): lymphoma Mother Family Medical History: AFIB, Congestive Heart Failure (CHF) Medications and Allergies Home Medications and Allergies Comment(s): Current Medications Acetaminophen (Tylenol Tab) 650 mg PO Q6HR PRN PRN Reason: Mild Pain or Fever > 100.5 Aspirin (Aspirin) 325 mg PO DAILY@1700 [facility] Last Admin: 03/11/18 17:16 Dose: 325 mg Clotrimazole (Lotrimin Cream) 1 applic TOPICAL HS@1999 [facility] Last Admin: 03/11/18 20:55 Dose: 1 applic Digoxin (Lanoxin) 125 mcg PO BID@07,20 [facility] Last Admin: 03/12/18 07:00 Dose: 125 mcg Enoxaparin Sodium (Lovenox) 30 mg SQ DAILY [facility] Last Admin: 03/12/18 07:57 Dose: 30 mg Ertapenem 1 gm/ Sodium (Chloride) 50 mls @ 100 mls/hr IVPB DAILY [facility]; Protocol Last Admin: 03/12/18 09:01 Dose: 100 mls/hr Sodium Chloride (Saline 0.9%) 1,000 mls @ 100 mls/hr IV .Q10H [facility] Last Admin: 03/12/18 13:00 Dose: 100 mls/hr Lamotrigine (Lamictal) 50 mg PO DAILY@0700 [facility] Last Admin: 03/12/18 07:00 Dose: 50 mg Lamotrigine (Lamictal) 200 mg PO BID@1430,20 [facility] Last Admin: 03/12/18 15:01 Dose: 200 mg Lamotrigine (Lamictal) 25 mg PO DAILY [facility] Last Admin: 03/12/18 07:57 Dose: 25 mg Lorazepam (Ativan) 0.5 mg PO BID PRN PRN Reason: Anxiety Lorazepam (Ativan) 2 mg IV Q1H PRN PRN Reason: Seizures Multivitamins (Theragran) 1 each PO DAILY@1700 [facility] Last Admin: 03/11/18 17:16 Dose: 1 each Naloxone HCl (Narcan) 0.2 mg IV Q2M PRN PRN Reason: Opioid Reversal Oxcarbazepine (Trileptal) 300 mg PO BID [facility] Last Admin: 03/12/18 07:56 Dose: 300 mg Polyethylene Glycol (Miralax) 17 gm PO DAILY@1430 [facility] Last Admin: 03/12/18 15:00 Dose: 17 gm Sertraline HCl (Zoloft) 150 mg PO DAILY@699 [facility] Last Admin: 03/12/18 07:01 Dose: 150 mg Verapamil HCl (Isoptin Sr) 240 mg PO DAILY@699 [facility] Last Admin: 03/12/18 07:01 Dose: 240 mg Ziprasidone (Geodon) 80 mg PO BID@ [facility] Last Admin: 03/12/18 07:00 Dose: 80 mg Home Medications Medication Instructions Recorded Confirmed Type Aspirin 325 mg PO DAILY@169902/13/14 03/08/18 History Multivitamins, Thera [Multivitamin 1 tab PO DAILY@169902/13/14 03/08/18 History (formulary)] OXcarbazepine [Trileptal] 300 mg PO TID@,02/13/14 03/08/18 History Polyethylene Glycol 3350 [Miralax] 17 gm PO DAILY@142902/13/14 03/08/18 History Sertraline [Zoloft] 150 mg PO DAILY@69902/13/14 03/08/18 History Verapamil HCl [Verapamil ER] 240 mg PO DAILY@69902/13/14 03/08/18 History Ziprasidone [Geodon] 80 mg PO BID@02/13/14 03/08/18 History lamoTRIgine [LaMICtal] 200 mg PO BID@1429,02/13/14 03/08/18 History Digoxin [Lanoxin] 125 mcg PO BID@09/06/16 03/08/18 History Clotrimazole [Clotrimazole AF] 1 applic TOPICAL HS@199901/19/18 03/08/18 History Cranberry Fruit Extract [Cranberry] 1,000 mg PO DAILY@169901/19/18 03/08/18 History LORazepam [Ativan] 0.5 mg PO BID PRN 01/19/18 03/08/18 History lamoTRIgine [LaMICtal] 50 mg PO DAILY@69901/19/18 03/08/18 History Nitrofurantoin Macrocrystal 100 mg PO DAILY 03/08/18 03/08/18 History [Macrodantin] Allergies Allergy/AdvReac Type Severity Reaction Status Date / Time No Known Allergies Allergy Verified 03/08/18 21:53 Physical Exam Vitals: Vital Signs Temp Pulse Resp BP Pulse Ox 03/12/18 15:00 97.3 F L 80 18 121/72 99 03/12/18 08:00 97.8 F 85 18 111/74 97 03/12/18 04:30 98.2 F 78 18 136/76 96 03/11/18 20:20 97.9 F 80 18 156/90 98 Intake and Output 03/12/18 03/12/18 03/12/18 06:59 14:59 22:59 Intake Total 1200 Balance 1200 Intake: Intake, IV Titration 1200 Amount Sodium Chloride 0.9% 1, 800 000 ml @ 100 mls/hr IV . Q10H [facility] Rx#:[id number] Sodium Chloride 0.9% 1, 400 000 ml @ 50 mls/hr IV . Q20H [facility] Rx#:[id number] Other: Voiding Method Toilet Toilet # Voids 4 2 Weight 65 kg Pleasant 62-year-old woman who is arousable pleasant and very poor historian HEENT: Anicteric conjunctiva are pink and moist nasal mucosa grossly intact without significant lesions, there is no thrush. Dentition is very warm for age Neck: The neck is supple without significant lymphadenopathy or thyromegaly. Lungs: Good bilateral air entry without significant crackles or wheezing. There is no significant bronchial sounds. There is no egophony or dullness. Heart: Regular rate and rhythm with an audible S1-S2, no S3 no S4. There is no significant murmur click or rub, PMI was nondisplaced. Abdomen: Positive bowel sounds soft and nontender without palpable masses or organomegaly. There was no guarding or rebound. Extremities: The upper extremities have excellent pulses they are symmetric, no significant petechiae or telangiectasia. No splinter hemorrhages were noted. The lower extremities are free from significant edema. The peripheral pulses were 2+ and symmetric. Neuro: The patient is arousable she interacts with the observer but is a poor historian. Results CBC & Chem 7: 03/12/18 10:53 03/12/18 10:53 Labs: Abnormal Lab Results - Last 24 Hours (Table) 03/12/18 03/12/18 Range/Units 10:53 10:53 WBC 11.0 H (3.8-10.6) k/uL Neutrophils # 7.8 H (1.3-7.7) k/uL BUN 22 H (7-17) mg/dL Creatinine 1.33 H (0.52-1.04) mg/dL Glucose 106 H (74-99) mg/dL Microbiology - Last 24 Hours (Table) 03/09/18 20:30 Urine Culture - Final Urine,Voided Escherichia coli Laboratory Results WBC 11.0 k/uL (3.8-10.6) H 03/12/18 10:53 RBC 4.03 m/uL (3.80-5.40) 03/12/18 10:53 Hgb 11.5 gm/dL (11.4-16.0) 03/12/18 10:53 Hct 36.0 % (34.0-46.0) 03/12/18 10:53 MCV 89.5 fL (80.0-100.0) 03/12/18 10:53 MCH 28.7 pg (25.0-35.0) 03/12/18 10:53 MCHC 32.0 g/dL (31.0-37.0) 03/12/18 10:53 RDW 14.2 % (11.5-15.5) 03/12/18 10:53 Plt Count 317 k/uL (150-450) 03/12/18 10:53 Neutrophils % 71 % 03/12/18 10:53 Lymphocytes % 16 % 03/12/18 10:53 Monocytes % 7 % 03/12/18 10:53 Eosinophils % 1 % 03/12/18 10:53 Basophils % 1 % 03/12/18 10:53 Neutrophils # 7.8 k/uL (1.3-7.7) H 03/12/18 10:53 Lymphocytes # 1.8 k/uL (1.0-4.8) 03/12/18 10:53 Monocytes # 0.8 k/uL (0-1.0) 03/12/18 10:53 Eosinophils # 0.1 k/uL (0-0.7) 03/12/18 10:53 Basophils # 0.1 k/uL (0-0.2) 03/12/18 10:53 Sodium 139 mmol/L (137-145) 03/12/18 10:53 Potassium 4.6 mmol/L (3.5-5.1) 03/12/18 10:53 Chloride 105 mmol/L (98-107) 03/12/18 10:53 Carbon Dioxide 24 mmol/L (22-30) 03/12/18 10:53 Anion Gap 10 mmol/L 03/12/18 10:53 BUN 22 mg/dL (7-17) H 03/12/18 10:53 Creatinine 1.33 mg/dL (0.52-1.04) H 03/12/18 10:53 Est GFR (CKD-EPI)AfAm 50 (>60 ml/min/1.73 sqM) 03/12/18 10:53 Est GFR (CKD-EPI)NonAf 43 (>60 ml/min/1.73 sqM) 03/12/18 10:53 Glucose 106 mg/dL (74-99) H 03/12/18 10:53 Calcium 10.1 mg/dL (8.4-10.2) 03/12/18 10:53 Magnesium 1.8 mg/dL (1.6-2.3) 03/10/18 06:10 Urine Color Colorless 03/08/18 22:00 Urine Appearance Clear (Clear) 03/08/18 22:00 Urine pH 7.0 (5.0-8.0) 03/08/18 22:00 Ur Specific Frederic 1.003 (1.001-1.035) 03/08/18 22:00 Urine Protein Negative (Negative) 03/08/18 22:00 Urine Glucose (UA) Negative (Negative) 03/08/18 22:00 Urine Ketones Negative (Negative) 03/08/18 22:00 Urine Blood Negative (Negative) 03/08/18 22:00 Urine Nitrite Negative (Negative) 03/08/18 22:00 Urine Bilirubin Negative (Negative) 03/08/18 22:00 Urine Urobilinogen <2.0 mg/dL (<2.0) 03/08/18 22:00 Ur Leukocyte Esterase Moderate (Negative) H 03/08/18 22:00 Urine RBC <1 /hpf (0-5) 03/08/18 22:00 Urine WBC 5 /hpf (0-5) 03/08/18 22:00 Urine Bacteria Many /hpf (None) H 03/08/18 22:00 Oxcarbazepine 24.0 ug/mL (10-35) 03/08/18 22:00 Lamotrigine 4.9 ug/mL (2.0-15.0) 03/08/18 22:00 Microbiology 03/09/18 20:30 Urine,Voided Urine Culture - Final Escherichia coli Assessment and Plan (1) Infection due to ESBL-producing Escherichia coli Narrative/Plan: 62-year-old female with developmental delay presents to Hospital from her apartment where she receives 24-hour care. Caregiver noticed a seizure and she was transported Hospital were no further seizures were noted but she does have an altered mental status. Evaluation revealed evidence of a markedly abnormal urinalysis. The patient admission was not giving any history. At this time she does have suprapubic tenderness and just does not feel well overall. She is not able to relate if she has chills or sweats but just doesn' t feel good. She however is hungry and wants to eat. Laboratory does reveal the E. coli ESBL, and with the evidence of urinary infection is noted by the markedly abnormal urinalysis and suprapubic tenderness therapy with ertapenem has been started. There are no viable oral options and will have to work with the discharge team and her caregivers as to whether or not she can have antibiotic therapy at the apartment or if she will need to be brought out daily to the office for antibiotic therapy. We'll plan 7 days of Invanz at home. Leukocytosis is multifactorial possibly from seizure and likely from the urinary tract infection. There is a mild increase of her creatinine and she is receiving fluids. Fortunately no further seizures have been seen during the admission. Current Visit: Yes Status: Acute Code(s): A49.8 - OTHER BACTERIAL INFECTIONS OF UNSPECIFIED SITE; Z16.12 - EXTENDED SPECTRUM BETA LACTAMASE (ESBL ) RESISTANCE SNOMED Code(s): 264252212 (2) UTI (urinary tract infection) Current Visit: Yes Status: Acute Code(s): N39.0 - URINARY TRACT INFECTION, SITE NOT SPECIFIED SNOMED Code(s): 18066637 (3) Leukocytosis Narrative/Plan: 62-year-old female with developmental delay presents to Hospital from her apartment where she receives 24-hour care. Caregiver noticed a seizure and she was transported Hospital were no further seizures were noted but she does have an altered mental status. Evaluation revealed evidence of a markedly abnormal urinalysis. The patient admission was not giving any history. At this time she does have suprapubic tenderness and just does not feel well overall. She is not able to relate if she has chills or sweats but just doesn' t feel good. She however is hungry and wants to eat. Laboratory does reveal the E. coli ESBL Current Visit: Yes Status: Acute Code(s): D72.829 - ELEVATED WHITE BLOOD CELL COUNT, UNSPECIFIED SNOMED Code(s): 967746895 (4) Altered mental status Current Visit: No Status: Inactive Code(s): R41.82 - ALTERED MENTAL STATUS, UNSPECIFIED SNOMED Code(s): 753483121
[2018-03-12] MEDS: ASPIRIN 325 MG TAB PO SCH (17:25)
[2018-03-12] MEDS: MULTIVITAMINS, THERA 1 EACH TAB PO SCH (17:25)
[2018-03-12] MEDS: CLOTRIMAZOLE 1% CREAM 15 GM TUBE TOPICAL SCH (20:31)
[2018-03-13] MEDS: DIGOXIN 125 MCG TAB PO SCH (06:25)
[2018-03-13] MEDS: lamoTRIgine 25 MG TAB PO SCH ×2 (06:26→08:12)
[2018-03-13] MEDS: SERTRALINE 50 MG TAB PO SCH (06:27)
[2018-03-13] MEDS: ZIPRASIDONE 80 MG CAP PO SCH (06:28)
[2018-03-13] MEDS: VERAPAMIL SR 240 MG TABLET.ER PO SCH (06:28)
[2018-03-13 07:53] VITALS: BP 133/72; PULSE 75; RESP 18; TEMP 97.7
[2018-03-13] MEDS: SODIUM CHLORIDE 0.9% 1,000 ML IV SCH (08:12)
[2018-03-13] MEDS: ERTAPENEM 1 GM in SODIUM CHLORIDE 0.9% 50 ML IVPB SCH (08:12)
[2018-03-13] MEDS: OXcarbazepine 300 MG TAB PO SCH (08:13)
[2018-03-13] MEDS: ENOXAPARIN 30 MG/0.3 ML SYRINGE SQ SCH (08:13)
[2018-03-13 08:59] LABS: Basophils # (A) 0.1 k/uL (0-0.2); Basophils % (A) 1 %; Eosinophils # (A) 0.2 k/uL (0-0.7); Eosinophils % (A) 2 %; HCT 33.8 % (34.0-46.0); HGB 10.9 gm/dL (11.4-16.0); Lymphocytes # (A) 1.8 k/uL (1.0-4.8); Lymphocytes % (A) 20 %; MCH 28.9 pg (25.0-35.0); MCHC 32.2 g/dL (31.0-37.0); MCV 89.7 fL (80.0-100.0); Mean Platelet Volume 6.3; Monocytes # (A) 0.6 k/uL (0-1.0); Monocytes % (A) 7 %; Neutrophils # (A) 5.8 k/uL (1.3-7.7); Neutrophils % (A) 65 %; Platelet Count 288 k/uL (150-450); RBC 3.77 m/uL (3.80-5.40); RDW 14.1 % (11.5-15.5); WBC 8.9 k/uL (3.8-10.6)
[2018-03-13 09:15] LABS: Calcium 9.6 mg/dL (8.4-10.2); Potassium 4.5 mmol/L (3.5-5.1)
--- NOTE | 2018-03-13 13:09 | P.DS ---
Providers Date of admission: 03/09/18 01:19 Expected date of discharge: 03/13/18 Attending physician: Oral Hernandez Consults: 03/09/18 01:20 Consult Physician Routine Consulting Provider: Trevor García Consult Reason/Comments: Seizure Do you want consulting provider notified?: Yes 03/12/18 07:20 Consult Physician Routine Consulting Provider: Benedicto Mckeon Consult Reason/Comments: E.Coli urine Do you want consulting provider notified?: Yes Primary care physician: Oral Hernandez This is a dictation on the discharge summary by Dr. Jose Goodrich M.D. [facility] [address] and date of the admission 96 and date of discharge 910 and Discharge summary dictated on [id number]. Final diagnoses of the diagnosis: #16 seizure disorder with breakthrough seizure. #2 altered mental status #3 intellectual disability #4 acute urinary tract infection with E. coli resistant and treated with Invanz IV with a midline catheter. #5 hyponatremia associated with with a seizure medication. #6 leukocytosis secondary to UTI. Patient is stable general condition, vital sign stable, discharged home today after she received midline for the IV antibiotic, she already have her antibiotic for today Invanz. She will be seeing Dr. Benedicto Mckeon tomorrow in his office for continuation of the Invanz for for further 7 days. Patient will follow Dr. Hernandez on his return to service on 03/21/2018 however if they have any need for seeing physician they can call my office will see her untold Dr. Hernandez returned. Plan - Discharge Summary Discharge Rx Participant: No New Discharge Prescriptions: New Ertapenem [INVanz] 1 gm IM DAILY #7 vial Acetaminophen Tab [Tylenol] 650 mg PO Q6HR PRN tab PRN Reason: Mild Pain Or Fever > 100.5 Digoxin [Lanoxin] 125 mcg PO DAILY tab Ertapenem [INVanz] 1 gm IVPB DAILY vial Continue Polyethylene Glycol 3350 [Miralax] 17 gm PO DAILY@1430 Verapamil HCl [Verapamil ER] 240 mg PO DAILY@0700 Aspirin 325 mg PO DAILY@1700 Ziprasidone [Geodon] 80 mg PO BID@07,20 Sertraline [Zoloft] 150 mg PO DAILY@0700 lamoTRIgine [LaMICtal] 200 mg PO BID@1430,20 OXcarbazepine [Trileptal] 300 mg PO TID@07,1430,20 Multivitamins, Thera [Multivitamin (formulary)] 1 tab PO DAILY@1699 Clotrimazole [Clotrimazole AF] 1 applic TOPICAL HS@1999 Cranberry Fruit Extract [Cranberry] 1,000 mg PO DAILY@170 lamoTRIgine [LaMICtal] 50 mg PO DAILY@07 LORazepam [Ativan] 0.5 mg PO BID PRN PRN Reason: Anxiety Discontinued Digoxin [Lanoxin] 125 mcg PO BID@ Nitrofurantoin Macrocrystal [Macrodantin] 100 mg PO DAILY Discharge Medication List Aspirin 325 mg PO DAILY@169902/13/14 [History] Multivitamins, Thera [Multivitamin (formulary)] 1 tab PO DAILY@169902/13/14 [ History] OXcarbazepine [Trileptal] 300 mg PO TID@07,1429,02/13/14 [History] Polyethylene Glycol 3350 [Miralax] 17 gm PO DAILY@142902/13/14 [History] Sertraline [Zoloft] 150 mg PO DAILY@69902/13/14 [History] Verapamil HCl [Verapamil ER] 240 mg PO DAILY@69902/13/14 [History] Ziprasidone [Geodon] 80 mg PO BID@02/13/14 [History] lamoTRIgine [LaMICtal] 200 mg PO BID@1429,02/13/14 [History] Clotrimazole [Clotrimazole AF] 1 applic TOPICAL HS@199901/19/18 [History] Cranberry Fruit Extract [Cranberry] 1,000 mg PO DAILY@169901/19/18 [History] LORazepam [Ativan] 0.5 mg PO BID PRN 01/19/18 [History] lamoTRIgine [LaMICtal] 50 mg PO DAILY@69901/19/18 [History] Ertapenem [INVanz] 1 gm IM DAILY #7 vial 03/12/18 [Rx] Acetaminophen Tab [Tylenol] 650 mg PO Q6HR PRN tab 03/13/18 [Rx] Digoxin [Lanoxin] 125 mcg PO DAILY tab 03/13/18 [Rx] Ertapenem [INVanz] 1 gm IVPB DAILY vial 03/13/18 [Rx] Follow up Appointment(s)/Referral(s): Oral Hernandez MD [Primary Care Provider] - 03/30/18 1:45 pm ( -earliest available appointment. Please call office earlier with any issues) Benedicto Mckeon MD [STAFF PHYSICIAN] - Activity/Diet/Wound Care/Special Instructions: For IV antibiotic infusions please at Dr. Mckeon office at 9:00AM starting . Thank you.
[2018-03-13] MEDS: lamoTRIgine 100 MG TAB PO SCH (15:33)
[2018-03-13] MEDS: POLYETHYLENE GLYCOL 3350 17 GM POWD.PACK PO SCH (15:33)
--- NOTE | 2018-03-13 17:14 | DS ---
DISCHARGE SUMMARY DATE OF SERVICE: 03/13/2018. ATTENDING PHYSICIAN/PCP: Dr. Hernandez. She is FULL CODE. NEW DATA: She has a height of 5 feet 4 inches, weight 65.2 kg, BSA 1.70 m2, BMI 24.7 kg/m2. ALLERGY: Unknown. FINAL DIAGNOSES: 1. Acute breakthrough seizure. 2. Underlying recurrence of urinary tract infection, E coli and that was ESBL E coli more than 100,000. The patient on Invanz IV "ertapenem" by Dr. Benedicto Mckeon. 3. [facility] after she had midline for the infusion of the antibiotic. 4. She had also underlying hyponatremia, which has started with 125, on discharge 142 corrected. 5. Underlying chronic kidney disease stage 3 with the future plan for ultrasound of the kidney as when she is evaluated by Dr. Hernandez follow up. 6. Seizure disorder, chronic. 7. Intellectual and mental disability. 8. Hyponatremia. 9. Leukocytosis as well as altered mental status secondary to hyponatremia and seizure disorder. 10.Chronic kidney disease, which could be associated with urinary tract infection. 11.Mild dehydration. Follow up with the Neurology, Dr. Jana García as the neurologist. The patient initial admission through the emergency room brought by EMS with altered mental status and seizure x1 with the history of underlying seizure disorder with breakthrough seizure. As she is seen and evaluated by the ER physician, and requested admission with the diagnosis of breakthrough seizure with seizure disorder and hyponatremia and Dr. Hernandez is out of town and I am covering him and admitted the patient subsequently. HOSPITAL COURSE: Patient admitted and we obtained the UA culture and sensitivity, which indicating E. coli, which is present in her last admission and that was indicating of ESBL E coli and resistant to most of the antibiotic orally and the patient was started on IV as consultation with Dr. Mckeon was obtained and patient continued on Invanz and he ordered midline catheter in the upper extremities, which will be done and subsequently she already had the dose of Invanz today and it is once a day 1 g and tomorrow she will be seeing him in the office and he will order the continuation of the antibiotic. The patient was started initially on Rocephin until the culture and sensitivities available and did not come until yesterday and at that time during the weekend on Tuesday, which is done at [facility] and subsequently the on-call, Dr. Diane, called the consult with Dr. Mckeon and patient was started on IV antibiotic according to sensitivity Marieanz. The patient is systemically stable and for that purpose that she will be discharged home today. She has no other complaints. On discharge today, her vital sign indicating temperature 97.7 oral, pulse 75 and respiratory rate 18. Her blood pressure is 133/72 with the mean pressure 92. Pulse ox was 99 percent. There is a remote history of atrial fibrillation. We did the EKG was normal sinus rhythm and she has been on medication, digoxin and verapamil and with the interaction we decreased the digoxin 125 mcg twice a day to only once a day as she is continued on the verapamil. Her blood pressure has been stable. She is otherwise clinically no further seizure disorder since she admitted to the hospital and consultation with Dr. Joyce García as well as consultation with Dr. Mckeon. The patient on the exam she had HEENT was negative. Able to eat her lunch, to swallow. No choking and no cough. Neck was supple. Chest was clear to auscultation and percussion. Heart was regular sinus rhythm and the abdomen was soft. Positive bowel sounds. No tenderness. Extremities no edema. Positive pulses and able to go to the bathroom and eat well. The patient hydrated. However, her creatinine is still up and renal function still in the chronic kidney disease. Need further evaluation and patient will be followed by Dr. Mckeon in the office tomorrow as well as she will be followed by Dr. Hernandez on his return. Meanwhile, if there is any further need for medical attention or having complaints she can see me in my office. MMODL / IJN: [id number] /
--- NOTE | 2018-03-13 22:12 | P.PN ---
Subjective Progress Note Date: 03/13/18 62 year old female who has developmental delays has 24-hour care in a private apartment. Her caregiver was concerned as to a seizure and EMS was called and the patient was brought to hospital. Upon arrival there was evidence of some altered mental status. No further seizures were noted that had been witnessed in the home setting. Review of the records reveals the last time she was hospitalized she did have a urinary tract infection and ESBL E. coli was isolated. With concerns to this the infectious diseases evaluation was requested. This time the patient is arousable but gives no specific history. She seems to be comfortable and was looking forward to having a meal. It is related that she is somewhat independent when she is in her home situation in that caregivers make meals but she does self-feed and requires some assistance for her toileting. 03/13/2018 the patient has had improvement of her status and no further seizures have been noted. She is tolerating the antibiotic therapy well. Ready for discharge home today after IV access is placed. Objective - Vital Signs Vital signs: Vital Signs Temp 97.7 F 03/13/18 07:00 Pulse 75 03/13/18 07:00 Resp 18 03/13/18 08:00 BP 133/72 03/13/18 07:00 Pulse Ox 99 03/13/18 07:00 Intake & Output 03/13/18 03/13/18 03/14/18 06:59 18:59 06:59 Intake Total 390 Balance 390 Weight 65.2 kg Intake: Intake, IV Titration 150 Amount Ertapenem 1 gm In Sodium 50 Chloride 0.9% 50 ml @ 100 mls/hr IVPB DAILY SUSIE Rx #:[id number] Sodium Chloride 0.9% 1, 100 000 ml @ 100 mls/hr IV . Q10H SUSIE Rx#:[id number] Oral 240 Other: Voiding Method Toilet # Voids 2 3 # Bowel Movements 1 2 - Exam Pleasant 62-year-old woman who is arousable pleasant and very poor historian HEENT: Anicteric conjunctiva are pink and moist nasal mucosa grossly intact without significant lesions, there is no thrush. Dentition is very warm for age Neck: The neck is supple without significant lymphadenopathy or thyromegaly. Lungs: Good bilateral air entry without significant crackles or wheezing. There is no significant bronchial sounds. There is no egophony or dullness. Heart: Regular rate and rhythm with an audible S1-S2, no S3 no S4. There is no significant murmur click or rub, PMI was nondisplaced. Abdomen: Positive bowel sounds soft and nontender without palpable masses or organomegaly. There was no guarding or rebound. Extremities: The upper extremities have excellent pulses they are symmetric, no significant petechiae or telangiectasia. No splinter hemorrhages were noted. The lower extremities are free from significant edema. The peripheral pulses were 2+ and symmetric. Neuro: The patient is arousable she interacts with the observer but is a poor historian. - Labs CBC & Chem 7: 03/13/18 08:08 03/13/18 08:08 Labs: Abnormal Lab Results - Last 24 Hours (Table) 03/13/18 03/13/18 Range/Units 08:08 08:08 RBC 3.77 L (3.80-5.40) m/uL Hgb 10.9 L (11.4-16.0) gm/dL Hct 33.8 L (34.0-46.0) % Chloride 108 H (98-107) mmol/L BUN 18 H (7-17) mg/dL Creatinine 1.35 H (0.52-1.04) mg/dL Laboratory Results WBC 8.9 k/uL (3.8-10.6) 03/13/18 08:08 RBC 3.77 m/uL (3.80-5.40) L 03/13/18 08:08 Hgb 10.9 gm/dL (11.4-16.0) L 03/13/18 08:08 Hct 33.8 % (34.0-46.0) L 03/13/18 08:08 MCV 89.7 fL (80.0-100.0) 03/13/18 08:08 MCH 28.9 pg (25.0-35.0) 03/13/18 08:08 MCHC 32.2 g/dL (31.0-37.0) 03/13/18 08:08 RDW 14.1 % (11.5-15.5) 03/13/18 08:08 Plt Count 288 k/uL (150-450) 03/13/18 08:08 Neutrophils % 65 % 03/13/18 08:08 Lymphocytes % 20 % 03/13/18 08:08 Monocytes % 7 % 03/13/18 08:08 Eosinophils % 2 % 03/13/18 08:08 Basophils % 1 % 03/13/18 08:08 Neutrophils # 5.8 k/uL (1.3-7.7) 03/13/18 08:08 Lymphocytes # 1.8 k/uL (1.0-4.8) 03/13/18 08:08 Monocytes # 0.6 k/uL (0-1.0) 03/13/18 08:08 Eosinophils # 0.2 k/uL (0-0.7) 03/13/18 08:08 Basophils # 0.1 k/uL (0-0.2) 03/13/18 08:08 Sodium 142 mmol/L (137-145) 03/13/18 08:08 Potassium 4.5 mmol/L (3.5-5.1) 03/13/18 08:08 Chloride 108 mmol/L (98-107) H 03/13/18 08:08 Carbon Dioxide 23 mmol/L (22-30) 03/13/18 08:08 Anion Gap 11 mmol/L 03/13/18 08:08 BUN 18 mg/dL (7-17) H 03/13/18 08:08 Creatinine 1.35 mg/dL (0.52-1.04) H 03/13/18 08:08 Est GFR (CKD-EPI)AfAm 49 (>60 ml/min/1.73 sqM) 03/13/18 08:08 Est GFR (CKD-EPI)NonAf 43 (>60 ml/min/1.73 sqM) 03/13/18 08:08 Glucose 90 mg/dL (74-99) 03/13/18 08:08 Calcium 9.6 mg/dL (8.4-10.2) 03/13/18 08:08 Magnesium 1.8 mg/dL (1.6-2.3) 03/10/18 06:10 Urine Color Colorless 03/08/18 22:00 Urine Appearance Clear (Clear) 03/08/18 22:00 Urine pH 7.0 (5.0-8.0) 03/08/18 22:00 Ur Specific Sherman 1.003 (1.001-1.035) 03/08/18 22:00 Urine Protein Negative (Negative) 03/08/18 22:00 Urine Glucose (UA) Negative (Negative) 03/08/18 22:00 Urine Ketones Negative (Negative) 03/08/18 22:00 Urine Blood Negative (Negative) 03/08/18 22:00 Urine Nitrite Negative (Negative) 03/08/18 22:00 Urine Bilirubin Negative (Negative) 03/08/18 22:00 Urine Urobilinogen <2.0 mg/dL (<2.0) 03/08/18 22:00 Ur Leukocyte Esterase Moderate (Negative) H 03/08/18 22:00 Urine RBC <1 /hpf (0-5) 03/08/18 22:00 Urine WBC 5 /hpf (0-5) 03/08/18 22:00 Urine Bacteria Many /hpf (None) H 03/08/18 22:00 Oxcarbazepine 19.5 ug/mL (10-35) 03/10/18 06:10 Lamotrigine 3.6 ug/mL (2.0-15.0) 03/10/18 06:10 Microbiology 03/09/18 20:30 Urine,Voided Urine Culture - Final Escherichia coli Assessment and Plan (1) Infection due to ESBL-producing Escherichia coli Narrative/Plan: 62-year-old female with developmental delay presents to Hospital from her apartment where she receives 24-hour care. Caregiver noticed a seizure and she was transported Hospital were no further seizures were noted but she does have an altered mental status. Evaluation revealed evidence of a markedly abnormal urinalysis. The patient admission was not giving any history. At this time she does have suprapubic tenderness and just does not feel well overall. She is not able to relate if she has chills or sweats but just doesn' t feel good. She however is hungry and wants to eat. Laboratory does reveal the E. coli ESBL, and with the evidence of urinary infection is noted by the markedly abnormal urinalysis and suprapubic tenderness therapy with ertapenem has been started. There are no viable oral options and will have to work with the discharge team and her caregivers as to whether or not she can have antibiotic therapy at the apartment or if she will need to be brought out daily to the office for antibiotic therapy. We'll plan 7 days of Invanz at home. Leukocytosis is multifactorial possibly from seizure and likely from the urinary tract infection. There is a mild increase of her creatinine and she is receiving fluids. Fortunately no further seizures have been seen during the admission. 03/13/2018 the patient is now getting ready for discharge to home. The care team is setting up for her to have outpatient intravenous antibiotic therapy via her midline. Patient will likely be discharged home later today. The sister and caregivers believe he'll have no difficulties transporting her to the office for 7 days to complete the course of her antibiotic therapy for ESBL E. coli urinary tract infection Status: Acute Code(s): A49.8 - OTHER BACTERIAL INFECTIONS OF UNSPECIFIED SITE ; Z16.12 - EXTENDED SPECTRUM BETA LACTAMASE (ESBL) RESISTANCE SNOMED Code(s): 996566718 (2) UTI (urinary tract infection) Status: Acute Code(s): N39.0 - URINARY TRACT INFECTION, SITE NOT SPECIFIED SNOMED Code(s): 18771606 (3) Leukocytosis Status: Acute Code(s): D72.829 - ELEVATED WHITE BLOOD CELL COUNT, UNSPECIFIED SNOMED Code(s): 022080852 (4) Altered mental status Status: Inactive Code(s): R41.82 - ALTERED MENTAL STATUS, UNSPECIFIED SNOMED Code(s): 531162480
[2018-03-14] MEDS ORDERED: DIGOXIN 125 MCG TAB PO SCH (09:00)
== END 2018-03-13 16:09 | disposition home or self-care (01) | DRG 101 ==
LOC: EC 21:13 → 6SEL 03-09 01:19 → 4MS4W 03-12 21:24
PROVIDERS: ADMIT Internal Medicine; ATTEND Internal Medicine
PROC: 05HF33Z Insertion of Infusion Device into Left Cephalic Vein, Percutaneous Approach (ICD-10-PCS; principal; 2018-03-13 10:30)
PROC: B54NZZA Ultrasonography of Left Upper Extremity Veins, Guidance (ICD-10-PCS; 2018-03-13 10:30)
DX: G40.409 Other generalized epilepsy and epileptic syndromes, not intractable, without status epilepticus (principal); N39.0 Urinary tract infection, site not specified; E87.1 Hypo-osmolality and hyponatremia; F25.1 Schizoaffective disorder, depressive type; N18.3 Chronic kidney disease, stage 3 (moderate); I48.0 Paroxysmal atrial fibrillation; E86.0 Dehydration; I12.9 Hypertensive chronic kidney disease with stage 1 through stage 4 chronic kidney disease, or unspecified chronic kidney disease; G31.9 Degenerative disease of nervous system, unspecified; F71 Moderate intellectual disabilities; F89 Unspecified disorder of psychological development; B96.20 Unspecified Escherichia coli [E. coli] as the cause of diseases classified elsewhere; Z16.12 Extended spectrum beta lactamase (ESBL) resistance; Z16.24 Resistance to multiple antibiotics; F42.9 Obsessive-compulsive disorder, unspecified; Z79.2 Long term (current) use of antibiotics; Z79.82 Long term (current) use of aspirin; Z79.899 Other long term (current) drug therapy; Z87.01 Personal history of pneumonia (recurrent); Z87.440 Personal history of urinary (tract) infections; Z80.7 Family history of other malignant neoplasms of lymphoid, hematopoietic and related tissues; Z82.49 Family history of ischemic heart disease and other diseases of the circulatory system
CPT/HCPCS: 36415; 36569; 76937; 77001; 80048; 80175; 80183; 81001; 83735; 85025; 87077; 87086; 87186; 93005; 96360; 96361; 99285

== ENCOUNTER 2018-04-15 19:27 | Emergency (ER) | payer MEDICARE, OTHER ==
[2018-04-15] MEDS ORDERED: SODIUM CHLORIDE 0.9% 500 ML 500 ML IV STA (20:34)
--- NOTE | 2018-04-15 20:38 | ED ---
Head Injury HPI - General Chief complaint: Head Injury Stated complaint: Head injury s/p seizure Time Seen by Provider: 04/15/18 20:11 Source: patient, Caregiver Mode of arrival: wheelchair Limitations: no limitations - History of Present Illness Initial comments: Patient is a 62-year-old female with a known history of seizure disorder that presents today for head injury. Caregiver's bedside and states that the patient lives at home with a another roommate but has constant assistance. Today, the patient was ambulating when she started to feel seizure come on. The patient fell backwards striking the back of her head on a glass door and the caregiver stated that she had her generalized seizure which lasted a couple minutes. The patient was post ictal but then returned to her baseline approximately after 15 minutes. They also states that in the past, seizures have been precipitated by UTIs in so that this may be the cause of the seizure. Caregiver states that typically the patient does not come in for seizures but they did come in this time because of the head injury. Per the caregiver, the patient is currently at baseline and is alert and oriented 1 and denies any significant chest pain, abdominal pain, headache and only admits to some mild lower back pain. - Related Data Home Medications Medication Instructions Recorded Confirmed Aspirin 325 mg PO DAILY@169902/13/14 03/08/18 Multivitamins, Thera [Multivitamin 1 tab PO DAILY@169902/13/14 03/08/18 (formulary)] OXcarbazepine [Trileptal] 300 mg PO TID@07,1429,02/13/14 03/08/18 Polyethylene Glycol 3350 [Miralax] 17 gm PO DAILY@142902/13/14 03/08/18 Sertraline [Zoloft] 150 mg PO DAILY@69902/13/14 03/08/18 Verapamil HCl [Verapamil ER] 240 mg PO DAILY@69902/13/14 03/08/18 Ziprasidone [Geodon] 80 mg PO BID@02/13/14 03/08/18 lamoTRIgine [LaMICtal] 200 mg PO BID@143,02/13/14 03/08/18 Clotrimazole [Clotrimazole AF] 1 applic TOPICAL HS@199901/19/18 03/08/18 Cranberry Fruit Extract [Cranberry] 1,000 mg PO DAILY@1700 01/19/18 03/08/18 LORazepam [Ativan] 0.5 mg PO BID PRN 01/19/18 03/08/18 lamoTRIgine [LaMICtal] 50 mg PO DAILY@0700 01/19/18 03/08/18 Previous Rx's Medication Instructions Recorded Ertapenem [INVanz] 1 gm IM DAILY #7 vial 03/12/18 Acetaminophen Tab [Tylenol] 650 mg PO Q6HR PRN tab 03/13/18 Digoxin [Lanoxin] 125 mcg PO DAILY tab 03/13/18 Ertapenem [INVanz] 1 gm IVPB DAILY vial 03/13/18 Cephalexin [Keflex] 500 mg PO Q12HR 7 Days #14 cap 04/15/18 Allergies/Adverse reactions: Allergies Allergy/AdvReac Type Severity Reaction Status Date / Time No Known Allergies Allergy Verified 04/15/18 19:48 Review of Systems ROS Statement: Those systems with pertinent positive or pertinent negative responses have been documented in the HPI. Constitutional: Negative for chills, fatigue and fever. HENT: Negative for congestion. Respiratory: Negative for chest tightness, shortness of breath and wheezing. Negative for cough Cardiovascular: Negative for chest pain and palpitations. Gastrointestinal: Negative for abdominal pain. Negative for abdominal distention , diarrhea, nausea and vomiting. Genitourinary: Negative for dysuria. Musculoskeletal: Positive for back pain, negative for neck pain and neck stiffness. Skin: Negative for color change. Neurological: Negative for dizziness, speech difficulty, weakness and light- headedness. Positive for seizure like activity Psychiatric/Behavioral: Negative for agitation and confusion. Negative for anxiety ROS Other: All systems not noted in ROS Statement are negative. Past Medical History Past Medical History: Atrial Fibrillation, Hypertension, Pneumonia, Seizure Disorder Additional Past Medical History / Comment(s): Vertigo, paroxysmal atrial fibrillation, moderate intellectual disability, SEPTEMBER 2016 UTI AND BACTEREMIA History of Any Multi-Drug Resistant Organisms: ESBL Date of last positivie culture/infection: 01/19/18 MDRO Source:: urine - E coli ESBL Past Surgical History: No Surgical Hx Reported Past Anesthesia/Blood Transfusion Reactions: No Reported Reaction Additional Past Anesthesia/Blood Transfusion Reaction / Comment(s): rn homecare says not that she knows of Past Psychological History: Schizoaffective Disorder Smoking Status: Never smoker Past Alcohol Use History: None Reported Past Drug Use History: None Reported - Past Family History Father Family Medical History: Cancer Additional Family Medical History / Comment(s): lymphoma Mother Family Medical History: AFIB, Congestive Heart Failure (CHF) General Exam - General Exam Comments Initial Comments: Constitutional: Pt is oriented to person which caregiver states is normal. Pt appears well-developed and well-nourished. No distress. HENT: Head: Normocephalic and 3 cm hematoma on the occiput Eyes: EOM are normal. Neck: Normal range of motion. Neck supple. Cardiovascular: Normal rate, regular rhythm, S1 normal, S2 normal and normal heart sounds. Exam reveals no gallop and no friction rub. No murmur heard. Pulmonary/Chest: Effort normal and breath sounds normal. No tachypnea and no bradypnea. No respiratory distress. No wheezes or rales noted. Abdominal: Soft. Bowel sounds are normal. Pt exhibits no shifting dullness, no distension, no pulsatile liver, no fluid wave, no abdominal bruit and no ascites. There is no tenderness. There is no rigidity, no rebound, no guarding, no tenderness at McBurney's point and negative Escobar's sign. Musculoskeletal: Normal range of motion. No midline tenderness of the C-spine, T-spine, L-spine. Muscle strength 5 out of 5 in all extremities Neurological: Pt is alert and oriented to person. No cranial nerve deficit. No signs of ataxia. Skin: Skin is warm and dry. No rash noted. Pt is not diaphoretic. No erythema. No pallor. Psychiatric: Pt has a normal mood and affect. Pt behavior is normal. Thought content normal. Limitations: no limitations Course Vital Signs 04/15/18 04/15/18 19:43 23:15 Temperature 97.9 F 97.6 F Pulse Rate 88 74 Respiratory 20 18 Rate Blood Pressure 137/89 142/89 O2 Sat by Pulse 97 98 Oximetry Medical Decision Making - Medical Decision Making {Studies showed that there was no significant anemia or electrolyte derangements that would be causing the patient's seizure. All creatinine was slightly elevated 1.77, it was not technically acute kidney injury. Additionally, there is no evidence of transaminitis and EKG showed no arrhythmia that would be causing the patient's symptoms. CT of the head was performed and showed no evidence of acute pathology and lumbar spine was performed. Lumbar spine x-ray didn't show a chronic lumbar fracture but no acute pathology. Because the patient has a history of seizures and return back to baseline, it is felt that the patient could be safely discharged home. Additionally, urinary sample did reveal a urinary tract infection therefore the patient was given a prescription for Keflex.Explained all labs and diagnostic test results and that we will discharge the patient home and patient is to follow up with PCP in 1-2 days and return to the ED if symptoms worsen. Patient 's caregiver is agreeable to plan. - Lab Data Result diagrams: 04/15/18 20:56 04/15/18 20:56 Lab Results 04/15/18 04/15/18 04/15/18 Range/Units 20:56 20:56 21:35 WBC 8.1 (3.8-10.6) k/uL RBC 4.18 (3.80-5.40) m/uL Hgb 12.2 (11.4-16.0) gm/dL Hct 36.8 (34.0-46.0) % MCV 88.1 (80.0-100.0) fL MCH 29.1 (25.0-35.0) pg MCHC 33.1 (31.0-37.0) g/dL RDW 13.8 (11.5-15.5) % Plt Count 235 (150-450) k/uL Neutrophils % 72 % Lymphocytes % 15 % Monocytes % 8 % Eosinophils % 1 % Basophils % 1 % Neutrophils # 5.8 (1.3-7.7) k/uL Lymphocytes # 1.2 (1.0-4.8) k/uL Monocytes # 0.6 (0-1.0) k/uL Eosinophils # 0.1 (0-0.7) k/uL Basophils # 0.1 (0-0.2) k/uL Sodium 136 L (137-145) mmol/L Potassium 4.8 (3.5-5.1) mmol/L Chloride 99 (98-107) mmol/L Carbon Dioxide 28 (22-30) mmol/L Anion Gap 9 mmol/L BUN 29 H (7-17) mg/dL Creatinine 1.77 H (0.52-1.04) mg/dL Est GFR (CKD-EPI)AfAm 36 (>60 ml/min/1.73 sqM) Est GFR (CKD-EPI)NonAf 31 (>60 ml/min/1.73 sqM) Glucose 90 (74-99) mg/dL Calcium 10.4 H (8.4-10.2) mg/dL Total Bilirubin 0.2 (0.2-1.3) mg/dL AST 24 (14-36) U/L ALT 30 (9-52) U/L Alkaline Phosphatase 123 (38-126) U/L Total Protein 6.9 (6.3-8.2) g/dL Albumin 3.8 (3.5-5.0) g/dL Urine Color Colorless Urine Appearance Clear (Clear) Urine pH 6.5 (5.0-8.0) Ur Specific [place] 1.003 (1.001-1.035) Urine Protein Negative (Negative) Urine Glucose (UA) Negative (Negative) Urine Ketones Negative (Negative) Urine Blood Negative (Negative) Urine Nitrite Negative (Negative) Urine Bilirubin Negative (Negative) Urine Urobilinogen <2.0 (<2.0) mg/dL Ur Leukocyte Esterase Moderate H (Negative) Urine RBC 1 (0-5) /hpf Urine WBC 14 H (0-5) /hpf Urine Bacteria Many H (None) /hpf Digoxin 0.5 ng/mL Urine Opiates Screen Not Detected (NotDetected) Ur Oxycodone Screen Not Detected (NotDetected) Urine Methadone Screen Not Detected (NotDetected) Ur Propoxyphene Screen Not Detected (NotDetected) Ur Barbiturates Screen Not Detected (NotDetected) U Tricyclic Antidepress Not Detected (NotDetected) Ur Phencyclidine Scrn Not Detected (NotDetected) Ur Amphetamines Screen Not Detected (NotDetected) U Methamphetamines Scrn Not Detected (NotDetected) U Benzodiazepines Scrn Not Detected (NotDetected) Urine Cocaine Screen Not Detected (NotDetected) U Marijuana (THC) Screen Not Detected (NotDetected) Serum Alcohol <10 mg/dL - EKG Data EKG Comments: EKG shows normal sinus rhythm with a rate of 80 bpm, [place] interval 204, QRS 88, QTC 415. There are no significant ST depressions or elevations. Disposition Clinical Impression: Closed head injury, Seizure, UTI (urinary tract infection), Lumbar vertebral fracture Disposition: HOME SELF-CARE Condition: Good Instructions: Epilepsy (ED) Prescriptions: Cephalexin [Keflex] 500 mg PO Q12HR 7 Days #14 cap Is patient prescribed a controlled substance at d/c from ED?: No Referrals: Oral Hernandez MD [Primary Care Provider] - 1-2 days Time of Disposition: 23:08
[2018-04-15 21:28] LABS: ALT 30 U/L (9-52); AST 24 U/L (14-36); Albumin 3.8 g/dL (3.5-5.0); Alcohol <10 mg/dL; Alkaline Phosphatase 123 U/L (38-126); Anion Gap 9 mmol/L; Blood Urea Nitrogen 29 mg/dL (7-17); Calcium 10.4 mg/dL (8.4-10.2); Carbon Dioxide 28 mmol/L (22-30); Chloride 99 mmol/L (98-107); Digoxin 0.5 ng/mL; Glucose 90 mg/dL (74-99); Potassium 4.8 mmol/L (3.5-5.1); Sodium 136 mmol/L (137-145); Total Bilirubin 0.2 mg/dL (0.2-1.3); Total Protein 6.9 g/dL (6.3-8.2)
[2018-04-15 21:29] LABS: Basophils # (A) 0.1 k/uL (0-0.2); Basophils % (A) 1 %; Eosinophils # (A) 0.1 k/uL (0-0.7); Eosinophils % (A) 1 %; HCT 36.8 % (34.0-46.0); HGB 12.2 gm/dL (11.4-16.0); Lymphocytes # (A) 1.2 k/uL (1.0-4.8); Lymphocytes % (A) 15 %; MCH 29.1 pg (25.0-35.0); MCHC 33.1 g/dL (31.0-37.0); MCV 88.1 fL (80.0-100.0); Mean Platelet Volume 6.3; Monocytes # (A) 0.6 k/uL (0-1.0); Monocytes % (A) 8 %; Neutrophils # (A) 5.8 k/uL (1.3-7.7); Neutrophils % (A) 72 %; Platelet Count 235 k/uL (150-450); RBC 4.18 m/uL (3.80-5.40); RDW 13.8 % (11.5-15.5); WBC 8.1 k/uL (3.8-10.6)
[2018-04-15 22:00] LABS: Appearance,Urine Clear (Clear); Bacteria,Urine Many /hpf; Bilirubin,Urine Negative (Negative); Blood,Urine Negative (Negative); Color,Urine Colorless; Glucose,Urine (UA) Negative (Negative); Ketones,Urine Negative (Negative); Leukocyte Esterase,Urine Moderate (Negative); Nitrite,Urine Negative (Negative); PH, Urine 6.5 (5.0-8.0); Protein,Urine Negative (Negative); RBC,Urine 1 /hpf (0-5); Specific Gravity,Urine 1.003 (1.001-1.035); Urobilinogen,Urine <2.0 mg/dL (<2.0); WBC,Urine 14 /hpf (0-5)
[2018-04-15 22:08] LABS: Amphetamine Screen,Urine Not Detected (NotDetected); Barbiturate Screen,Urine Not Detected (NotDetected); Benzodiazepines Screen,Urine Not Detected (NotDetected); Cocaine Screen,Urine Not Detected (NotDetected); Methadone Screen, Urine Not Detected (NotDetected); Opiate Screen,Urine Not Detected (NotDetected); Oxycodone Screen, Urine Not Detected (NotDetected); Phencyclidine Screen,Urine Not Detected (NotDetected); Tricyclic Antidepressant,Urine Not Detected (NotDetected); Urn Cannabinoid Scrn Not Detected (NotDetected)
--- NOTE | 2018-04-15 22:26 | CT ---
EXAMINATION TYPE: CT brain wo con DATE OF EXAM: 04/15/2018 COMPARISON: 01/19/2018 HISTORY: seizure CT DLP: 1863.4 mGycm Automated exposure control for dose reduction was used. FINDINGS: Ventricles and sulci appear normal. There is no mass effect nor midline shift. There is no sign of in tracranial hemorrhage. The calvarium appears intact. There is mild mucosal thickening left maxillary sinus with wall thickening. There is thickening of the calvarium that could relate to seizure medicat ion. There is mild left occipital scalp soft tissue swelling. IMPRESSION: LEFT OCCIPITAL SCALP SOFT TISSUE SWELLING IS NEW COMPARED TO OLD EXAM. NO ACUTE INTRACRANIAL ABNORMAL ITY.
--- NOTE | 2018-04-15 22:28 | XR ---
EXAMINATION TYPE: XR lumbar spine 2 or 3V DATE OF EXAM: 04/15/2018 COMPARISON: NONE HISTORY: Pain TECHNIQUE: 3 views FINDINGS: Lumbar vertebra have normal alignment. There is narrowing of L4-5 L5-S1 disc spaces. There is spurring of the endplates. Posterior elements are intact. There is 15% anterior wedging of L1 vert ebra that appears old. IMPRESSION: Old mild compression fracture L1. Spondylotic changes. No acute bony abnormality.
[2018-04-15] MEDS ORDERED: lamoTRIgine 100 MG TAB PO STA (22:45)
[2018-04-15] MEDS ORDERED: OXcarbazepine 300 MG TAB PO SCH (22:45)
[2018-04-15 23:31] VITALS: BP 142/89; PULSE 74; RESP 18; TEMP 97.6
== END 2018-04-15 23:16 | disposition home or self-care (01) ==
LOC: EC 19:27
DX: S32.010A Wedge compression fracture of first lumbar vertebra, initial encounter for closed fracture (principal); S09.90XA Unspecified injury of head, initial encounter; N39.0 Urinary tract infection, site not specified; R79.89 Other specified abnormal findings of blood chemistry; I48.91 Unspecified atrial fibrillation; I10 Essential (primary) hypertension; G40.909 Epilepsy, unspecified, not intractable, without status epilepticus; F25.9 Schizoaffective disorder, unspecified; Z79.82 Long term (current) use of aspirin; Z79.899 Other long term (current) drug therapy; W19.XXXA Unspecified fall, initial encounter; Y92.009 Unspecified place in unspecified non-institutional (private) residence as the place of occurrence of the external cause
CPT/HCPCS: 36415; 93005; 80053; 80162; 85025; 81001; 80306; 87086; 87077; 87186; 72100; 70450; 99284; G0480; 80320

== ENCOUNTER → 2018-05-09 | Outpatient (CLI) | payer MEDICARE, OTHER ==
[2018-05-10 15:45] LABS: Lamotrigine (Lamictal) 8.5 ug/mL (2.0-15.0)
== END | disposition home or self-care (01) ==
LOC: LABWHC1 08:07
PROVIDERS: ATTEND Psychiatry & Neurology Neurology
DX: G40.209 Localization-related (focal) (partial) symptomatic epilepsy and epileptic syndromes with complex partial seizures, not intractable, without status epilepticus (principal)
CPT/HCPCS: 36415; 80175; 80183; 84295

== ENCOUNTER 2018-06-21 12:27 | Inpatient (IN) | payer MEDICARE, OTHER ==
[2018-06-21] MEDS ORDERED: SODIUM CHLORIDE 0.9% 1,000 ML IV STA (13:53)
[2018-06-21] MEDS ORDERED: AMPICILLIN-SULBACTAM 3 GM in SODIUM CHLORIDE 0.9% 100 ML IVPB STA (13:59)
--- NOTE | 2018-06-21 14:42 | ED ---
General Adult HPI <Mickey Noel - Last Filed: 06/21/18 17:11> - General Source: RN notes reviewed, old records reviewed, Caregiver Mode of arrival: ambulatory Limitations: no limitations <Dilshad Black - Last Filed: 06/22/18 10:55> - General Chief complaint: Skin/Abscess/Foreign Body Stated complaint: cyst & bleeding/Female /infection - History of Present Illness Initial comments: 62-year-old female patient with past medical history of cognitive delay, recurrent UTI, bacteremia, presents to ED with reportedly one day of right labial abscess. Patient was seen by her primary care physician today and was recommended to present to ED for further evaluation and treatment. Patient additionally complains of some suprapubic abdominal pain. Patient denies chest pain, shortness of breath, nausea vomiting diarrhea, fever or chills. Systemic: Pt denies fatigue, myalgia, fever/chills, rash. Pt denies weakness, night sweats, weight loss. Neuro: Pt denies headache, visual disturbances, syncope or pre-syncope. HEENT: Pt denies ocular discharge or irritation, otalgia, rhinorrhea, pharyngitis or notable lymphadenopathy. Cardiopulmonary: Pt denies chest pain, SOB, heart palpitations, dyspnea on exertion. Abdominal/GI: Pt denies n/v/d. : Pt denies dysuria, burning w/ urination, frequency/urgency. Denies new onset urinary or bowel incontinence. MSK: Pt denies myalgia, loss of strength or function in extremities. Neuro: Pt denies new onset weakness, paresthesias. (Dilshad Black) - Related Data Home Medications Medication Instructions Recorded Confirmed Aspirin 325 mg PO DAILY@1700 02/13/14 06/21/18 Multivitamins, Thera [Multivitamin 1 tab PO DAILY@1700 02/13/14 06/21/18 (formulary)] OXcarbazepine [Trileptal] 300 mg PO BID 02/13/14 06/21/18 Polyethylene Glycol 3350 [Miralax] 17 gm PO DAILY@1430 02/13/14 06/21/18 Sertraline [Zoloft] 150 mg PO DAILY@0700 02/13/14 06/21/18 Verapamil HCl [Verapamil ER] 240 mg PO DAILY@0700 02/13/14 06/21/18 Ziprasidone [Geodon] 80 mg PO BID@0700,2000 02/13/14 06/21/18 lamoTRIgine [LaMICtal] 200 mg PO TID 02/13/14 06/21/18 Cranberry Fruit Extract [Cranberry] 1,000 mg PO DAILY@1700 01/19/18 06/21/18 LORazepam [Ativan] 1 mg PO BID PRN 01/19/18 06/21/18 Previous Rx's Medication Instructions Recorded Digoxin [Lanoxin] 125 mcg PO DAILY tab 03/13/18 Allergies Allergy/AdvReac Type Severity Reaction Status Date / Time No Known Allergies Allergy Verified 06/21/18 13:09 Review of Systems ROS Other: All systems not noted in ROS Statement are negative. <Mickey Noel - Last Filed: 06/21/18 17:11> ROS Other: All systems not noted in ROS Statement are negative. <Dilshad Black - Last Filed: 06/22/18 10:55> ROS Statement: Those systems with pertinent positive or pertinent negative responses have been documented in the HPI. Past Medical History Past Medical History: Atrial Fibrillation, Hypertension, Pneumonia, Seizure Disorder Additional Past Medical History / Comment(s): Vertigo, paroxysmal atrial fibrillation, moderate intellectual disability, SEPTEMBER 2016 UTI AND BACTEREMIA History of Any Multi-Drug Resistant Organisms: ESBL Date of last positivie culture/infection: 04/15/18 MDRO Source:: urine - E coli ESBL Past Surgical History: No Surgical Hx Reported Past Anesthesia/Blood Transfusion Reactions: No Reported Reaction Additional Past Anesthesia/Blood Transfusion Reaction / Comment(s): rn palliative care says not that she knows of Past Psychological History: Schizoaffective Disorder Smoking Status: Never smoker Past Alcohol Use History: None Reported Past Drug Use History: None Reported - Past Family History Father Family Medical History: Cancer Additional Family Medical History / Comment(s): lymphoma Mother Family Medical History: AFIB, Congestive Heart Failure (CHF) <Dilshad Black - Last Filed: 06/22/18 10:55> General Exam <Mickey Noel - Last Filed: 06/21/18 17:11> Limitations: no limitations <Dilshad Black - Last Filed: 06/22/18 10:55> - General Exam Comments Initial Comments: Constitutional: NAD, AOX3, Pt has pleasant affect. HEENT: NC/AT, trachea midline, neck supple, no lymphadenopathy. Posterior pharynx non erythematous, without exudates. External ears appear normal, without discharge. Mucous membranes moist. Eyes PERRLA, EOM intact. There is no scleral icterus. No pallor noted. Cardiopulmonary: RRR, no murmurs, rubs or gallops, no JVD noted. Lungs CTAB in anterior and posterior carlson. No peripheral edema. Abdominal exam: Abdomen soft and non-distended. Abdomen mildly tender to palpation in suprapubic region. No guarding no rigidity. Bowel sounds active in LLQ. No hepatosplenomegaly. No ecchymosis Neuro: CN II-XII grossly intact. No nuchal rigidity. MSK: No posterior calf tenderness bilaterally, homans sign negative bilaterally. Posterior tibialis and radial pulse +2 bilaterally. Sensation intact in upper and lower extremities. Full active ROM in upper and lower extremities, 5/5 strength. : Right labial abscess approximately 8cm in duration, moderate amount of induration and drainage noted. No surrounding cellulitic changes. Chaperoned by RN. I&D performed by Dr. Mcduffie, small amount of purulent fluid drained, mostly blood and clotted blood. Packed with iodiform gauze. (Dilshad Black) Course <Mickey Noel - Last Filed: 06/21/18 17:11> <Dilshad Black - Last Filed: 06/22/18 10:55> Vital Signs 06/21/18 06/21/18 06/21/18 12:40 14:15 17:30 Temperature 98.1 F 99.0 F Pulse Rate 89 78 83 Respiratory 16 16 16 Rate Blood Pressure 130/85 128/72 133/84 O2 Sat by Pulse 98 96 96 Oximetry 06/21/18 06/21/18 18:44 18:59 Temperature Pulse Rate 90 105 H Respiratory 18 20 Rate Blood Pressure 150/96 116/69 O2 Sat by Pulse 99 99 Oximetry - Reevaluation(s) Reevaluation #1: 06/21/18 16:51 Patient was reevaluated by myself, Dr. Noel. Patient has large right labial cellulitis/abscess type changes. No subcutaneous emphysema. Results and CT results reviewed. Case was discussed in detail with Dr. Hernandez who recommends calling [employer]. Case was also discussed in detail with Dr. Mcduffie who does agree with [facility]. She recommends surgical consult and will evaluate patient. 06/21/18 17:11 Case was discussed in detail with Dr. [place] who will consult however feels this is likely a gynecology case. Case was discussed again with Dr. Hernandez, who will admit his patient with consultants. (Mickey Noel) Medical Decision Making - Lab Data Result diagrams: 06/21/18 14:15 06/21/18 14:15 <Mickey Noel - Last Filed: 06/21/18 17:11> - Lab Data Result diagrams: 06/22/18 08:22 06/21/18 14:15 - EKG Data -: EKG Interpreted by Me (and dr noel) <Dilshad Black - Last Filed: 06/22/18 10:55> - Medical Decision Making 62-year-old female patient with past medical history of cognitive delay, recurrent UTI, bacteremia, presents to ED with reportedly one day of right labial abscess. Patient was seen by her primary care physician today and was recommended to present to ED for further evaluation and treatment. Patient additionally complains of some suprapubic abdominal pain. Physical exam displayed abdomen mildly tender to palpation in suprapubic region. Displayed right labial abscess approximately 8 symptoms and duration. Laboratory investigations revealed a leukocyte esterase of 15.8, mildly increased creatinine, UA displayed [address] abdomen and pelvis displayed subcutaneous fat stranding within the right labia majora. As well as other nonemergent findings. I&D was performed at bedside by Dr. Mcduffie, cultures were obtained. Patient was started on IV antibiotics. Patient to be admitted for further evaluation. Case discussed and patient examined by Dr. Noel. OB, ID, Gen surg consulted. (Dilshad Black) - Lab Data Lab Results 06/21/18 06/21/18 06/21/18 Range/Units 14:10 14:15 14:15 WBC 15.8 H (3.8-10.6) k/uL RBC 3.53 L (3.80-5.40) m/uL Hgb 10.4 L (11.4-16.0) gm/dL Hct 31.2 L (34.0-46.0) % MCV 88.4 (80.0-100.0) fL MCH 29.5 (25.0-35.0) pg MCHC 33.3 (31.0-37.0) g/dL RDW 14.0 (11.5-15.5) % Plt Count 423 (150-450) k/uL Neutrophils % 78 % Lymphocytes % 13 % Monocytes % 5 % Eosinophils % 1 % Basophils % 0 % Neutrophils # 12.4 H (1.3-7.7) k/uL Lymphocytes # 2.0 (1.0-4.8) k/uL Monocytes # 0.8 (0-1.0) k/uL Eosinophils # 0.2 (0-0.7) k/uL Basophils # 0.0 (0-0.2) k/uL Sodium 138 (137-145) mmol/L Potassium 4.9 (3.5-5.1) mmol/L Chloride 102 (98-107) mmol/L Carbon Dioxide 27 (22-30) mmol/L Anion Gap 9 mmol/L BUN 24 H (7-17) mg/dL Creatinine 1.33 H (0.52-1.04) mg/dL Est GFR (CKD-EPI)AfAm 50 (>60 ml/min/1.73 sqM) Est GFR (CKD-EPI)NonAf 43 (>60 ml/min/1.73 sqM) Glucose 108 H (74-99) mg/dL Plasma Lactic Acid [place] (0.7-2.0) mmol/L Calcium 10.2 (8.4-10.2) mg/dL Total Bilirubin 0.2 (0.2-1.3) mg/dL AST 17 (14-36) U/L ALT 23 (9-52) U/L Alkaline Phosphatase 139 H (38-126) U/L Total Protein 6.9 (6.3-8.2) g/dL Albumin 3.5 (3.5-5.0) g/dL [place] 125 Antigen (0.0-30.1) U/mL Urine Color Light Yellow Urine Appearance Cloudy H (Clear) Urine pH 6.0 (5.0-8.0) Ur Specific [place] 1.004 (1.001-1.035) Urine Protein Negative (Negative) Urine Glucose (UA) Negative (Negative) Urine Ketones Negative (Negative) Urine Blood Trace H (Negative) Urine Nitrite Positive H (Negative) Urine Bilirubin Negative (Negative) Urine Urobilinogen <2.0 (<2.0) mg/dL Ur Leukocyte Esterase Large H (Negative) Urine RBC 4 (0-5) /hpf Urine WBC 31 H (0-5) /hpf Ur Squamous Epith Cells <1 (0-4) /hpf Urine Bacteria Occasional H (None) /hpf Urine Yeast (Budding) Occasional H (None) /hpf 06/21/18 06/21/18 Range/Units 14:15 14:30 WBC (3.8-10.6) k/uL RBC (3.80-5.40) m/uL Hgb (11.4-16.0) gm/dL Hct (34.0-46.0) % MCV (80.0-100.0) fL MCH (25.0-35.0) pg MCHC (31.0-37.0) g/dL RDW (11.5-15.5) % Plt Count (150-450) k/uL Neutrophils % % Lymphocytes % % Monocytes % % Eosinophils % % Basophils % % Neutrophils # (1.3-7.7) k/uL Lymphocytes # (1.0-4.8) k/uL Monocytes # (0-1.0) k/uL Eosinophils # (0-0.7) k/uL Basophils # (0-0.2) k/uL Sodium (137-145) mmol/L Potassium (3.5-5.1) mmol/L Chloride (98-107) mmol/L Carbon Dioxide (22-30) mmol/L Anion Gap mmol/L BUN (7-17) mg/dL Creatinine (0.52-1.04) mg/dL Est GFR (CKD-EPI)AfAm (>60 ml/min/1.73 sqM) Est GFR (CKD-EPI)NonAf (>60 ml/min/1.73 sqM) Glucose (74-99) mg/dL Plasma Lactic Acid [place] 1.0 (0.7-2.0) mmol/L Calcium (8.4-10.2) mg/dL Total Bilirubin (0.2-1.3) mg/dL AST (14-36) U/L ALT (9-52) U/L Alkaline Phosphatase (38-126) U/L Total Protein (6.3-8.2) g/dL Albumin (3.5-5.0) g/dL [place] 125 Antigen 5.7 (0.0-30.1) U/mL Urine Color Urine Appearance (Clear) Urine pH (5.0-8.0) Ur Specific [place] (1.001-1.035) Urine Protein (Negative) Urine Glucose (UA) (Negative) Urine Ketones (Negative) Urine Blood (Negative) Urine Nitrite (Negative) Urine Bilirubin (Negative) Urine Urobilinogen (<2.0) mg/dL Ur Leukocyte Esterase (Negative) Urine RBC (0-5) /hpf Urine WBC (0-5) /hpf Ur Squamous Epith Cells (0-4) /hpf Urine Bacteria (None) /hpf Urine Yeast (Budding) (None) /hpf - EKG Data EKG Comments: Ventricular rate a Her insulin 94, QRS 86, QT/QTC 370/47. Normal sinus rhythm, possible left atrial enlargement. No concerns for acute ischemia. (Dilshad Blakc) Disposition <Mickey Noel - Last Filed: 06/21/18 17:11> <Dilshad Black - Last Filed: 06/22/18 10:55> Clinical Impression: Labial abscess Disposition: ADMITTED IP TO THIS HOSP
[2018-06-21 14:46] LABS: Basophils % (A) 0 %; Eosinophils # (A) 0.2 k/uL (0-0.7); Eosinophils % (A) 1 %; HCT 31.2 % (34.0-46.0); HGB 10.4 gm/dL (11.4-16.0); Lymphocytes % (A) 13 %; MCH 29.5 pg (25.0-35.0); MCHC 33.3 g/dL (31.0-37.0); MCV 88.4 fL (80.0-100.0); Mean Platelet Volume 6.2; Monocytes # (A) 0.8 k/uL (0-1.0); Monocytes % (A) 5 %; Neutrophils # (A) 12.4 k/uL (1.3-7.7); Neutrophils % (A) 78 %; Platelet Count 423 k/uL (150-450); RBC 3.53 m/uL (3.80-5.40); WBC 15.8 k/uL (3.8-10.6)
[2018-06-21 14:55] LABS: Appearance,Urine Cloudy (Clear); Bacteria,Urine Occasional /hpf; Bilirubin,Urine Negative (Negative); Blood,Urine Trace (Negative); Budding Yeast,Urine Occasional /hpf; Color,Urine Light Yellow; Glucose,Urine (UA) Negative (Negative); Ketones,Urine Negative (Negative); Leukocyte Esterase,Urine Large (Negative); Nitrite,Urine Positive (Negative); Protein,Urine Negative (Negative); RBC,Urine 4 /hpf (0-5); Specific Gravity,Urine 1.004 (1.001-1.035); Squamous Epithelial Cell,Urine <1 /hpf (0-4); Urobilinogen,Urine <2.0 mg/dL (<2.0)
[2018-06-21 14:56] LABS: Albumin 3.5 g/dL (3.5-5.0); Calcium 10.2 mg/dL (8.4-10.2); Potassium 4.9 mmol/L (3.5-5.1); Total Bilirubin 0.2 mg/dL (0.2-1.3); Total Protein 6.9 g/dL (6.3-8.2)
[2018-06-21] MEDS ORDERED: MORPHINE SULFATE 4 MG/ML SYRINGE IV STA (14:56)
--- NOTE | 2018-06-21 16:07 | CT ---
EXAMINATION TYPE: CT abdomen pelvis w con DATE OF EXAM: 06/21/2018 HISTORY: Pain CT DLP: 726.9mGycm Automated Exposure Control for Dose Reduction was Utilized. CONTRAST: CT scan of the abdomen and pelvis is performed with IV Contrast, patient injected with 100 mL of Isov ue 300. COMPARISON: None. FINDINGS: LUNG BASES: Bibasilar subsegmental dependent atelectasis. LIVER/GB: Liver is incompletely visualized due to field of view. Within the visualized portions of th e hepatic parenchyma no focal masses seen. Cholelithiasis is noted. PANCREAS: No significant abnormality is seen. SPLEEN: No significant abnormality is seen. ADRENALS: No significant abnormality is seen. KIDNEYS: There is an abnormal appearance of both kidneys. There are numerous too small to accurately characterize renal lesions and cortical punctate calcifications. Additionally there is bilateral mild hydroureteronephrosis.. BOWEL: The rectum is dilated due to gaseous distention of the 8.5 cm. There is redundancy of the deco mpressed sigmoid colon. Moderate amount retained colonic stool is seen limiting evaluation of the bow el in addition to lack of oral contrast. Appendix appears air-filled and within normal limits. No dil ated small bowel is seen. The stomach demonstrates diffuse wall thickening that could relate to incom plete distention, gastritis or neoplasm. UTERUS/ADNEXA: There is a fluid attenuated left adnexal lesion measuring 3.7 cm with peripheral rim c alcifications. LYMPH NODES: No greater than 1cm abdominal or pelvic lymph nodes are appreciated. OSSEOUS STRUCTURES: There is an age indeterminant compression deformity of the L1 vertebral body with multilevel moderate degenerative changes of the spine. OTHER: There is fat stranding within the right labia majora and extending upward over the right pubic bone into the superficial inguinal region. There is abnormal right superficial inguinal adenopathy w ith a 1.5 cm short axis hyperemic lymph node noted. IMPRESSION: 1. Subcutaneous fat stranding within the right labia majora extending over the right pubic symphysis with abnormal right superficial inguinal lymph node. Although no subcutaneous emphysema is seen to co nfirm the diagnosis of necrotizing fasciitis, this diagnosis should be considered given the location and diffuse fat stranding. Correlate with physical examination findings. 2. Gaseous rectal dilation measuring up to 8.5 cm without evidence of obstruction. 3. Abnormal left adnexal cystic lesion with peripheral calcifications for which further evaluation wi pelvic ultrasound is recommended on a nonemergent basis. 3. Diffuse abnormal wall thickening of the stomach that could relate to incomplete distention, gastri tis or neoplasm. Repeat exam with oral contrast or direct visualization could be performed. 4. Diffuse abnormal appearance of the kidneys with bilateral hydroureteronephrosis that may be on the basis of ureterovesicular reflux as no obstructive uropathy is seen. Numerous too small to accuratel y characterize renal lesions are present that could represent cysts in chronic medical renal disease although as suggested on the exam of 10/21/2017 nephrology consultation is recommended. 5. Cholelithiasis. 6. Age-indeterminate compression deformity of L1.
[2018-06-21] MEDS ORDERED: LIDOCAINE 1% INJ 10MG/ML (20 ML MDV) SQ STA (16:42)
[2018-06-21] MEDS ORDERED: NALOXONE 0.4 MG/ML 1 ML VIAL IV PRN (18:08)
[2018-06-21] MEDS ORDERED: ACETAMINOPHEN TAB 325 MG TAB PO PRN (18:08)
[2018-06-21] MEDS ORDERED: IBUPROFEN 400 MG TAB PO PRN (18:08)
[2018-06-21] MEDS ORDERED: MORPHINE SULFATE 4 MG/ML SYRINGE IV PRN (18:08)
--- NOTE | 2018-06-21 18:19 | P.OBCN ---
History of Present Illness Consult date: 06/21/18 Requesting physician: Oral Hernandez Reason for consult: other (Right labial abscess) Chief complaint: Right labial swelling History of present illness: This is a 62-year-old female 0 para 0 who presents to her physician's office today with complaints of labial swelling. Her sister is with her and states she lives in a assisted living home and her caregiver noticed some bleeding from her right labia last night. This morning she brought her over to the sister's house and since this morning her sister has noticed that the area has grown about 3 sizes larger. She does complain of soreness in this area. The patient does have some intellectual disability and schizoaffective disorder. She denies any sexual intercourse at all. She does have a history of recurrent ESBL UTIs. She did have a CAT scan which did show some stranding in the right labia extending to the pubic symphysis area. Also there was some lymphadenopathy noted in this area. The radiologist did have a concern for potential necrotizing fasciitis. In addition she did have a simple appearing left ovarian cyst noted on computed tomography scan. The radiologist did recommend further evaluation with pelvic ultrasound. Review of Systems Constitutional: Denies chills, Denies fever Genitourinary: Reports abnormal vaginal bleeding, Reports pelvic pain Past Medical History Past Medical History: Atrial Fibrillation, Hypertension, Pneumonia, Seizure Disorder Additional Past Medical History / Comment(s): Vertigo, paroxysmal atrial fibrillation, moderate intellectual disability, SEPTEMBER 2016 UTI AND BACTEREMIA History of Any Multi-Drug Resistant Organisms: ESBL Year Discovered:: 04/15/18 MDRO Source:: urine - E coli ESBL Past Surgical History: No Surgical Hx Reported Past Anesthesia/Blood Transfusion Reactions: No Reported Reaction Additional Past Anesthesia/Blood Transfusion Reaction / Comm: healthcare network consultant says not that she knows of Past Psychological History: Schizoaffective Disorder Smoking Status: Never smoker Past Alcohol Use History: None Reported Past Drug Use History: None Reported - Past Family History Father Family Medical History: Cancer Additional Family Medical History / Comment(s): lymphoma Mother Family Medical History: AFIB, Congestive Heart Failure (CHF) Medications and Allergies Home Medications Medication Instructions Recorded Confirmed Type Aspirin 325 mg PO DAILY@169902/13/14 06/21/18 History Multivitamins, Thera [Multivitamin 1 tab PO DAILY@169902/13/1406/21/18 History (formulary)] OXcarbazepine [Trileptal] 300 mg PO BID 02/13/14 06/21/18 History Polyethylene Glycol 3350 [Miralax] 17 gm PO DAILY@1430 02/13/14 06/21/18 History Sertraline [Zoloft] 150 mg PO DAILY@0700 02/13/14 06/21/18 History Verapamil HCl [Verapamil ER] 240 mg PO DAILY@0702/13/14 06/21/18 History Ziprasidone [Geodon] 80 mg PO BID@07,199902/13/14 06/21/18 History lamoTRIgine [LaMICtal] 200 mg PO TID 02/13/14 06/21/18 History Cranberry Fruit Extract [Cranberry] 1,000 mg PO DAILY@1700 01/19/18 06/21/18 History LORazepam [Ativan] 1 mg PO BID PRN 01/19/18 06/21/18 History Digoxin [Lanoxin] 125 mcg PO DAILY tab 03/13/18 06/21/18 Rx Allergies Allergy/AdvReac Type Severity Reaction Status Date / Time No Known Allergies Allergy Verified 06/21/18 13:09 Exam Osteopathic Statement: *. No significant issues noted on an osteopathic structural exam other than those noted in the History and Physical/Consult. Vital Signs Temp Pulse Resp BP Pulse Ox 06/21/18 17:30 99.0 F 83 16 133/84 96 06/21/18 14:15 78 16 128/72 96 06/21/18 12:40 98.1 F 89 16 130/85 98 Intake and Output 06/21/18 06/21/18 06/21/18 06:59 14:59 22:59 Other: Weight 64.41 kg - OBG Physical Exam Vulva: Right labia is very swollen and red with firmness noted throughout. There is an area where the skin is denuded and slightly yellowish in color. The area is cleaned with Betadine solution and injected with 1% lidocaine. A cut was made with an 11 blade and a small amount of white pussy discharge is noted but mostly some blood and clot. With gentle pressure on the swollen labia minimal further discharge is noted. Cultures are taken inside the wound. Area is packed with small amount of iodoform gauze. Results Result Diagrams: 06/21/18 14:15 06/21/18 14:15 Abnormal Lab Results - Last 24 Hours (Table) 06/21/18 06/21/18 06/21/18 Range/Units 14:10 14:15 14:15 WBC 15.8 H (3.8-10.6) k/uL RBC 3.53 L (3.80-5.40) m/uL Hgb 10.4 L (11.4-16.0) gm/dL Hct 31.2 L (34.0-46.0) % Neutrophils # 12.4 H (1.3-7.7) k/uL BUN 24 H (7-17) mg/dL Creatinine 1.33 H (0.52-1.04) mg/dL Glucose 108 H (74-99) mg/dL Alkaline Phosphatase 139 H (38-126) U/L Urine Appearance Cloudy H (Clear) Urine Blood Trace H (Negative) Urine Nitrite Positive H (Negative) Ur Leukocyte Esterase Large H (Negative) Urine WBC 31 H (0-5) /hpf Urine Bacteria Occasional H (None) /hpf Urine Yeast (Budding) Occasional H (None) /hpf Assessment and Plan (1) Abscess of right genital labia Current Visit: Yes Status: Acute Code(s): N76.4 - ABSCESS OF VULVA SNOMED Code(s): 870936819 (2) Ovarian cyst, left Current Visit: Yes Status: Acute Code(s): N83.202 - UNSPECIFIED OVARIAN CYST , LEFT SIDE SNOMED Code(s): 82285543 Plan: Agree with admission and IV antibiotics. I also do recommend consultation with infectious disease and Gen. surgery. Will also obtain a pelvic ultrasound to evaluate left ovarian cyst further. We'll also obtain a CA-125 level. I will follow with you. Thank you for this consultation.
[2018-06-21] MEDS ORDERED: LORazepam 0.5 MG TAB PO PRN (19:21)
[2018-06-21] MEDS ORDERED: AMPICILLIN-SULBACTAM 3 GM in SODIUM CHLORIDE 0.9% 100 ML IVPB SCH (20:00)
--- NOTE | 2018-06-21 20:45 | HP ---
HISTORY AND PHYSICAL ATTENDING PHYSICIAN: Dr. Belkis Hernandez. CHIEF COMPLAINT: Pain, right groin. HISTORY OF PRESENT ILLNESS: This is a 62-year-old female was seen in the office today and with a complaint of pain in the right groin area. The patient had significant discomfort. She has some mental retardation but fairly functional. The patient in view of this showed it to her caregiver who noted that the patient has a lump in the right labia. In view of this, she is brought to the office. In the office, on evaluation, the patient has a markedly inflamed right labia with superficial necrotic skin changes and with spots where she might have a slight drainage. The patient also has marked tenderness. Mild fluctuance and tender right horizontally inguinal chain node. The patient has not noticed to have any vaginal discharge. He is not febrile, does not appear ill. The patient will require an I and D. It was difficult to get her to be seen by [facility] on the outpatient. Thus they sent the patient to the emergency room. The patient is seen in the ER and for some unclear reason the physician assistant producer has done a CT scan of the abdomen and pelvis on this patient. The patient does have some renal insufficiency. Expecting the patient to do reasonably well though. The radiologist says he cannot rule out necrotizing fasciitis. However, clinically the patient had no evidence of crepitus. The patient is not as acutely ill as one would see on a normally necrotizing fasciitis patient. She was seen by Dr. Mcduffie in the emergency room. We did an I and D of the right labia. The patient is admitted to the hospital. She has been placed on IV antibiotics. Hydration. Had recommended the patient be on clindamycin, however, the [facility] physician preferred Unasyn. PAST MEDICAL HISTORY: 1. History of recurrent urinary tract infections with E coli resistant to most antibiotics. Also oral antibiotics. 2. Seizure disorder. 3. Mental retardation. 4. Atrial flutter episode. No history of any lung disease, liver disease. The patient does have chronic kidney disease. Etiology unclear. No myocardial infarction or CVA. PAST SURGICAL HISTORY: Negative for any major surgeries. PERSONAL HISTORY: Nonsmoker. No alcohol. FAMILY MEDICAL HISTORY: The patient has 1 sister in good health. She has 2 brothers in adequate health. The patient's parents in their 90s with history of ASHD. MEDICATIONS: Present medications include: Lamictal 200 mg t.i.d., Geodon 80 mg b.i.d., 240 mg daily, Zoloft 150 mg daily, MiraLAX 17 g daily. Trileptal 300 mg b.i.d., multivitamin daily, Ativan 1 mg p.o. p.r.n. b.i.d., digoxin 125 mcg daily. Cranberry tablets daily, aspirin 325 mg daily. SOCIAL HISTORY: Patient is single and does live in an independent setting with the supervision of a caregiver. REVIEW OF SYSTEMS: Neuro: Denies any headaches, dizziness. PSYCH: No anxiety, depression, history of mental retardation with occasional agitation. Cardiac: No chest pain, angina or palpitations. Respiratory: No shortness of breath, cough, hemoptysis. GI: No nausea, vomiting, abdominal pain, diarrhea, constipation. : Has symptoms of dysuria, hematuria. Present complaint of swollen right labia. Constitutional: No fever, chills. Skin: Healing up right temporal parietal frontal herpes zoster. CONSTITUTIONAL: No fever, chills. ENT adequate hearing. Eyes: Adequate vision. PHYSICAL EXAMINATION: This is a pleasant female present in no distress. Vital signs reveals a temperature 99, pulse 83, respirations 16, blood pressure 133/84, pulse ox 96% on room air. HEENT: Normocephalic. NECK: Supple. Oral cavity moist. Right frontoparietal rash healing previous from herpes zoster. Neck: No JVD. No carotid bruits. No thyromegaly. CHEST EXAMINATION: Clear to auscultation and percussion. Cardiac: Normal S1, S2 with no gallops, murmurs. Rhythm is regular. ABDOMEN: Soft. No palpable masses. Bowel sounds normal. No organomegaly. No abdominal bruits. External genitalia reveals swollen inflamed right labia with lower and abscess formation. Pelvic examination is not done. Rectal examination is deferred. Extremities reveal no edema. Good pulses both upper and lower extremities. NEUROLOGIC: Awake, alert, oriented to person. Moves both upper and lower extremities well. LABORATORY ASSESSMENT: CBC which reveals white count of 15.8, hemoglobin 10.4, has a left shift. BUN 24, creatinine 1.33, GFR 43. Alkaline phosphatase 139. Urine nitrate positive, WBC 31. Urine, occasional bacteria, and occasional yeast. Budding yeast. ASSESSMENT: 1. Abscess and cellulitis right labia. 2. Anemia, chronic. 3. Chronic kidney disease stage 3. 4. Seizure disorder. 5. Mental retardation. 6. History of recurrent urinary tract infections. PLAN: Continue present medical regimen. Patient's condition is discussed with the patient and caregiver. Also discussed with the ER physician, and I have requested a referral to a [facility]. [facility] has seen the patient by the time of this dictation. MMSARAHL / IJN: [id number] /
[2018-06-21] MEDS: lamoTRIgine 100 MG TAB PO SCH (20:59)
[2018-06-21] MEDS: ZIPRASIDONE 80 MG CAP PO SCH (20:59)
[2018-06-21] MEDS: OXcarbazepine 300 MG TAB PO SCH (20:59)
--- NOTE | 2018-06-21 21:21 | P.GSCN ---
History of Present Illness Consult date: 06/21/18 History of present illness: Patient seen and evaluated. ON exam, cellulitis of the right labia. No clinical evidence of necrotizing fasciitis or fluid collection for surgical drainage. Patient seen by [facility] PATR[facility]. Additionally CT scan reviewed with evidence of gallstones currently asymptomatic. Information garnered from sister at bedside. No surgical intervention. Recommend antibiotics, including sitz bath for comfort. Past Medical History Past Medical History: Atrial Fibrillation, Hypertension, Pneumonia, Seizure Disorder Additional Past Medical History / Comment(s): Vertigo, paroxysmal atrial fibrillation, moderate intellectual disability, SEPTEMBER 2016 UTI AND BACTEREMIA History of Any Multi-Drug Resistant Organisms: ESBL Year Discovered:: 04/15/18 MDRO Source:: urine - E coli ESBL Past Surgical History: No Surgical Hx Reported Additional Past Surgical History / Comment(s): hx picc opal-since removed Past Anesthesia/Blood Transfusion Reactions: No Reported Reaction Additional Past Anesthesia/Blood Transfusion Reaction / Comm: acute care physician says not that she knows of Past Psychological History: Schizoaffective Disorder Smoking Status: Never smoker Past Alcohol Use History: None Reported Past Drug Use History: None Reported - Past Family History Father Family Medical History: Cancer Additional Family Medical History / Comment(s): lymphoma Mother Family Medical History: AFIB, Congestive Heart Failure (CHF) Medications and Allergies Home Medications Medication Instructions Recorded Confirmed Type Aspirin 325 mg PO DAILY@1700 02/13/14 06/21/18 History Multivitamins, Thera [Multivitamin 1 tab PO DAILY@1700 02/13/14 06/21/18 History (formulary)] OXcarbazepine [Trileptal] 300 mg PO BID 02/13/14 06/21/18 History Polyethylene Glycol 3350 [Miralax] 17 gm PO DAILY@1430 02/13/14 06/21/18 History Sertraline [Zoloft] 150 mg PO DAILY@0700 02/13/14 06/21/18 History Verapamil HCl [Verapamil ER] 240 mg PO DAILY@0700 02/13/14 06/21/18 History Ziprasidone [Geodon] 80 mg PO BID@0700,199902/13/14 06/21/18 History lamoTRIgine [LaMICtal] 200 mg PO TID 02/13/14 06/21/18 History Cranberry Fruit Extract [Cranberry] 1,000 mg PO DAILY@1700 01/19/18 06/21/18 History LORazepam [Ativan] 1 mg PO BID PRN 01/19/18 06/21/18 History Digoxin [Lanoxin] 125 mcg PO DAILY tab 03/13/18 06/21/18 Rx Allergies Allergy/AdvReac Type Severity Reaction Status Date / Time No Known Allergies Allergy Verified 06/21/18 13:09 Surgical - Exam Vital Signs Temp Pulse Resp BP Pulse Ox 98.1 F 89 16 130/85 98 06/21/18 12:40 06/21/18 12:40 06/21/18 12:40 06/21/18 12:40 06/21/18 12:40 Results - Labs 06/21/18 14:15 06/21/18 14:15 Abnormal Lab Results - Last 24 Hours (Table) 06/21/18 06/21/18 06/21/18 Range/Units 14:10 14:15 14:15 WBC 15.8 H (3.8-10.6) k/uL RBC 3.53 L (3.80-5.40) m/uL Hgb 10.4 L (11.4-16.0) gm/dL Hct 31.2 L (34.0-46.0) % Neutrophils # 12.4 H (1.3-7.7) k/uL BUN 24 H (7-17) mg/dL Creatinine 1.33 H (0.52-1.04) mg/dL Glucose 108 H (74-99) mg/dL Alkaline Phosphatase 139 H (38-126) U/L Urine Appearance Cloudy H (Clear) Urine Blood Trace H (Negative) Urine Nitrite Positive H (Negative) Ur Leukocyte Esterase Large H (Negative) Urine WBC 31 H (0-5) /hpf Urine Bacteria Occasional H (None) /hpf Urine Yeast (Budding) Occasional H (None) /hpf Microbiology - Last 24 Hours (Table) 06/21/18 14:15 Wound Culture - Preliminary Groin Diabetes panel 06/21/18 Range/Units 14:15 Sodium 138 (137-145) mmol/L Potassium 4.9 (3.5-5.1) mmol/L Chloride 102 (98-107) mmol/L Carbon Dioxide 27 (22-30) mmol/L BUN 24 H (7-17) mg/dL Creatinine 1.33 H (0.52-1.04) mg/dL Glucose 108 H (74-99) mg/dL Calcium 10.2 (8.4-10.2) mg/dL AST 17 (14-36) U/L ALT 23 (9-52) U/L Alkaline Phosphatase 139 H (38-126) U/L Total Protein 6.9 (6.3-8.2) g/dL Albumin 3.5 (3.5-5.0) g/dL Calcium panel 06/21/18 Range/Units 14:15 Calcium 10.2 (8.4-10.2) mg/dL Albumin 3.5 (3.5-5.0) g/dL Pituitary panel 06/21/18 Range/Units 14:15 Sodium 138 (137-145) mmol/L Potassium 4.9 (3.5-5.1) mmol/L Chloride 102 (98-107) mmol/L Carbon Dioxide 27 (22-30) mmol/L BUN 24 H (7-17) mg/dL Creatinine 1.33 H (0.52-1.04) mg/dL Glucose 108 H (74-99) mg/dL Calcium 10.2 (8.4-10.2) mg/dL Adrenal panel 06/21/18 Range/Units 14:15 Sodium 138 (137-145) mmol/L Potassium 4.9 (3.5-5.1) mmol/L Chloride 102 (98-107) mmol/L Carbon Dioxide 27 (22-30) mmol/L BUN 24 H (7-17) mg/dL Creatinine 1.33 H (0.52-1.04) mg/dL Glucose 108 H (74-99) mg/dL Calcium 10.2 (8.4-10.2) mg/dL Total Bilirubin 0.2 (0.2-1.3) mg/dL AST 17 (14-36) U/L ALT 23 (9-52) U/L Alkaline Phosphatase 139 H (38-126) U/L Total Protein 6.9 (6.3-8.2) g/dL Albumin 3.5 (3.5-5.0) g/dL
[2018-06-21] MEDS: PIPERACILLIN-TAZOBACTAM 3.375 GM in SODIUM CHLORIDE 0.9% 100 ML IVPB SCH (23:44)
[2018-06-22] MEDS ORDERED: SODIUM CHLORIDE 0.9% IVPB SCH ×2
[2018-06-22] MEDS ORDERED: AMPICILLIN-SULBACTAM 1.5 GM in SODIUM CHLORIDE 0.9% 50 ML IVPB SCH ×2
[2018-06-22] MEDS ORDERED: AMPICILLIN SULBACTAM IVPB SCH ×2
[2018-06-22] MEDS: OXcarbazepine 300 MG TAB PO SCH ×2 (08:26→20:57)
[2018-06-22] MEDS: VERAPAMIL SR 240 MG TABLET.ER PO SCH (08:26)
[2018-06-22] MEDS: SERTRALINE 50 MG TAB PO SCH (08:26)
[2018-06-22] MEDS: lamoTRIgine 100 MG TAB PO SCH ×3 (08:26→20:57)
[2018-06-22] MEDS: PIPERACILLIN-TAZOBACTAM 3.375 GM in SODIUM CHLORIDE 0.9% 100 ML IVPB SCH ×3 (08:26→23:34)
[2018-06-22] MEDS: DIGOXIN 125 MCG TAB PO SCH (08:26)
[2018-06-22] MEDS: ZIPRASIDONE 80 MG CAP PO SCH ×2 (08:26→20:57)
--- NOTE | 2018-06-22 09:16 | P.PN ---
Subjective Progress Note Date: 06/22/18 Principal diagnosis: Right labial cellulitis Patient is seen. She denies any pain at this time. Objective - Vital Signs Vital signs: Vital Signs Temp 97.1 F L 06/22/18 07:47 Pulse 76 06/22/18 07:47 Resp 16 06/22/18 07:47 BP 126/73 06/22/18 07:47 Pulse Ox 98 06/22/18 07:47 Intake & Output 06/21/18 06/22/18 06/22/18 18:59 06:59 18:59 Intake Total 1349 Balance 1349 Weight 64.41 kg 64.637 kg Intake: Intake, IV Titration 1149 Amount Ampicillin-Sulbactam 1.5 50 gm In Sodium Chloride 0.9 % 50 ml @ 100 mls/hr IVPB Q8HR SUSIE Rx#:[id number] Piperacillin-Tazobactam 3 100 .375 gm In Sodium Chloride 0.9% 100 ml @ 25 mls/hr IVPB Q8HR SUSIE Rx# :[id number] Sodium Chloride 0.9% 1, 999 000 ml @ 999 mls/hr IV . Q1H1M STA Rx#:[id number] Oral 200 Other: # Voids 1 - Genitourinary Genitourinary Comment(s): Right labia is still swollen and red with some induration. Upon removing her pad the packing that was placed in the ER came out. The lower edge of the vulva is opened with some yellowish discharge and minimal bleeding. - Labs CBC & Chem 7: 06/21/18 14:15 06/21/18 14:15 Labs: Abnormal Lab Results - Last 24 Hours (Table) 06/21/18 06/21/18 06/21/18 Range/Units 14:10 14:15 14:15 WBC 15.8 H (3.8-10.6) k/uL RBC 3.53 L (3.80-5.40) m/uL Hgb 10.4 L (11.4-16.0) gm/dL Hct 31.2 L (34.0-46.0) % Neutrophils # 12.4 H (1.3-7.7) k/uL BUN 24 H (7-17) mg/dL Creatinine 1.33 H (0.52-1.04) mg/dL Glucose 108 H (74-99) mg/dL Alkaline Phosphatase 139 H (38-126) U/L Urine Appearance Cloudy H (Clear) Urine Blood Trace H (Negative) Urine Nitrite Positive H (Negative) Ur Leukocyte Esterase Large H (Negative) Urine WBC 31 H (0-5) /hpf Urine Bacteria Occasional H (None) /hpf Urine Yeast (Budding) Occasional H (None) /hpf Microbiology - Last 24 Hours (Table) 06/21/18 18:15 Gram Stain - Preliminary Groin Wound Culture - Preliminary 06/21/18 14:15 Gram Stain - Preliminary Groin Wound Culture - Preliminary 06/21/18 14:10 Urine Culture - Preliminary Urine,Voided Assessment and Plan Assessment: Right labial cellulitis (1) Abscess of right genital labia Current Visit: Yes Status: Acute Code(s): N76.4 - ABSCESS OF VULVA SNOMED Code(s): 240441958 (2) Ovarian cyst, left Current Visit: Yes Status: Acute Code(s): N83.202 - UNSPECIFIED OVARIAN CYST , LEFT SIDE SNOMED Code(s): 05193934 Plan: Recommend daily cleaning by nursing staff. Anticipate infectious disease consult. We'll continue to follow.
[2018-06-22 09:29] LABS: Basophils # (A) 0.1 k/uL (0-0.2); Basophils % (A) 1 %; Eosinophils # (A) 0.3 k/uL (0-0.7); Eosinophils % (A) 3 %; HCT 34.4 % (34.0-46.0); HGB 10.9 gm/dL (11.4-16.0); Lymphocytes # (A) 1.7 k/uL (1.0-4.8); Lymphocytes % (A) 14 %; MCH 28.5 pg (25.0-35.0); MCHC 31.5 g/dL (31.0-37.0); MCV 90.4 fL (80.0-100.0); Monocytes # (A) 0.6 k/uL (0-1.0); Monocytes % (A) 5 %; Neutrophils # (A) 9.6 k/uL (1.3-7.7); Neutrophils % (A) 76 %; Platelet Count 356 k/uL (150-450); RBC 3.81 m/uL (3.80-5.40); RDW 14.1 % (11.5-15.5); WBC 12.7 k/uL (3.8-10.6)
--- NOTE | 2018-06-22 10:49 | US ---
EXAMINATION TYPE: US pelvic complete DATE OF EXAM: 06/22/2018 COMPARISON: CT CLINICAL HISTORY: L. adnexal cyst on CT scan. TECHNIQUE: Transabdominal (TA). Transabdominal sonographic images of the pelvis were acquired; G0; patient states has RLQ pain, not LLQ pain Date of LMP: unknown; patient states is post menopausal EXAM MEASUREMENTS: Uterus: 4.9 x 4.3 x 2.0 cm Endometrial Stripe: 0.2 cm Right Ovary: 2.6 x 1.9 x 1.1 cm Left Ovary: 4.9 x 4.6 x 3.6 cm 1. Uterus: anteverted; 2. Endometrium: thickness is wnl post menopausal 3. Right Ovary: wnl 4. Left Ovary: large simple cyst = 4.4 x 3.3 x 2.7cm; smaller follicle seen too Spectral, color and waveform Doppler imaging shows good arterial and venous flow within the ovaries ; there is no evidence for ovarian torsion. 5. Bilateral Adnexa: wnl 6. Posterior cul-de-sac: wnl IMPRESSION: Large simple cyst left ovary. Otherwise unremarkable study.
[2018-06-22] MEDS ORDERED: VANCOMYCIN IV PER PHARMACY 1 EACH MISC MISCELLANE PRN (12:37)
[2018-06-22] MEDS ORDERED: VANCOMYCIN 1,500 MG in SODIUM CHLORIDE 0.9% 250 ML IVPB ONE (13:30)
[2018-06-22] MEDS: POLYETHYLENE GLYCOL 3350 17 GM POWD.PACK PO SCH (13:46)
[2018-06-22] MEDS ORDERED: CRANBERRY FRUIT EXTRACT 1000 MG PO SCH (17:00)
[2018-06-22] MEDS: ASPIRIN 325 MG TAB PO SCH (17:28)
[2018-06-22] MEDS: MULTIVITAMINS, THERA 1 EACH TAB PO SCH (17:28)
--- NOTE | 2018-06-22 19:55 | PN ---
PROGRESS NOTE ATTENDING PHYSICIAN: Dr. Lv Hernandez. CHIEF COMPLAINT: Re-evaluation. HISTORY OF PRESENT ILLNESS: This lady was admitted to the hospital with no fever, chills, however pain in the right groin and noted to have a significant induration of the right labia with some minimal fluctuance, break in the skin area indicative of some cellulitis and underlying abscess formation. The patient does have a history of recurrent urinary tract infections, but no other previous infections of the groin area. She had localized edema and right inguinal lymphadenopathy with tenderness. The patient also had elevated white count. She was seen by FUR NAILER. I and D was done. At the request of FUR NAILER, the patient was referred to surgery who saw the patient and said was more of a FUR NAILER problem and thus Dr. Mcduffie did come down to the ER and did an I and D and drained some purulent material. The patient is feeling better this morning. I feel that the patient's edema and swelling of the right labia is decreased. She still had packing visible. The right groin lymphedema is decreased. There is no redness. The lymph node is I think a little bit smaller and still mildly tender. She continues to be afebrile. REVIEW OF SYSTEMS: Neuro: Denies any headaches or dizziness. Psych: No anxiety. Cardiac: No chest pain. Respiratory: No shortness of breath, cough. GI no nausea, vomiting, abdominal pain, diarrhea. : No symptoms of dysuria or hematuria. Extremities: No pain. Constitutional: No fever or chills. PHYSICAL EXAMINATION: Pleasant female at present in no distress. Vital signs: Temperature 97.1, pulse 76, respirations 16, blood pressure 126/73, pulse ox 98% on room air. HEENT: Normocephalic. Neck: No JVD. CHEST: Clear to auscultation and percussion. Cardiac: Normal S1, S2 with no gallops or murmurs. ABDOMEN: Soft. Bowel sounds present. Extremities reveal no edema. NEUROLOGIC: Awake, alert, oriented with well-coordinated movements. Physical examination done in presence of the nurse of the vaginal area reveals decreased edema and erythema of the right labia. No edema in the groin area. jack spooler tender right inguinal lymph node. LABORATORY ASSESSMENT: CBC which reveals white count down to 12.7, hemoglobin 10.9. The patient's microbiology reveals a gram stain wound culture of presumptive MRSA. Apparently I was not aware but Dr. Mckeon has seen the patient and the patient has been placed on Zosyn and vancomycin and Unasyn being discontinued. Continue present plan. Hopefully the patient will be able to be discharged within the next 48 hours. MMODL / IJN: [id number] /
--- NOTE | 2018-06-22 23:21 | P.CONS ---
History of Present Illness - Reason for Consult Consult date: 06/22/18 - Chief Complaint Pain right labia - History of Present Illness 62-year-old female who has developmental delay is cared for in a private residence with multiple caregivers. Apparently the patient started to complain of some pain and swelling to the right labia. She was brought to the emergency center with her is evidence of significant infection to lower aspect. Incision and drainage was performed emergency center and it was packed. She' s also his been seen by gynecology and surgery with no evidence of necrotizing fasciitis but does have a local infection at the site. With this the infectious diseases consultation has been requested. Lower extremities show evidence of likely MRSA. 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 When area is not manipulated is not painful and she denying fevers or chills. She's been able to eat well throughout the day and voices no other new acute complaints. Review of Systems Patient comfortable HEENT:Denies headache or acute visual change. Denies sinus or mouth discomforts. Denies neck stiffness or pain. Denies significant oral cavity pain. Denies difficulty on swallowing. Lungs: Denies significant shortness of breath, cough, sputum production, or hemoptysis. Cardiovascular: Denies significant shortness of breath, chest pain, chest wall pain, orthopnea, dyspnea on exertion, syncope Gastrointestinal:Denies nausea, vomiting, diarrhea, constipation, hematemesis, melena, hematochezia. No no significant change of bowel habit noticed. Musculoskeletal: denies significant myalgias or arthralgias. No new joint swelling. Denies new back pain. Skin: No lesion to the right labia Neuro: Denies headache or visual change. Denies any new onset weakness or difficulty with ambulation. Denies falls or seizures. Psychiatric:Denies anxiety or depression. Endocrine: Denies significant fatigue, denies significant weight loss or weight gain. Past Medical History Past Medical History: Atrial Fibrillation, Hypertension, Pneumonia, Seizure Disorder Additional Past Medical History / Comment(s): Vertigo, paroxysmal atrial fibrillation, moderate intellectual disability, SEPTEMBER 2016 UTI AND BACTEREMIA History of Any Multi-Drug Resistant Organisms: ESBL Year Discovered:: 04/15/18 MDRO Source:: urine - E coli ESBL Past Surgical History: No Surgical Hx Reported Additional Past Surgical History / Comment(s): hx picc opal-since removed Past Anesthesia/Blood Transfusion Reactions: No Reported Reaction Additional Past Anesthesia/Blood Transfusion Reaction / Comm: 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 depressive type schizoaffective. Single. Has a sister as her guardian. Does have 24-hour care in her apartment. No animals in the apartment. No travel history Smoking Status: Never smoker Past Alcohol Use History: None Reported Past Drug Use History: None Reported - Past Family History Father Family Medical History: Cancer Additional Family Medical History / Comment(s): lymphoma Mother Family Medical History: AFIB, Congestive Heart Failure (CHF) Medications and Allergies Home Medications and Allergies Comment(s): Current Medications Acetaminophen (Tylenol Tab) 650 mg PO Q6HR PRN PRN Reason: Mild Pain or Fever > 100.5 Last Admin: 06/22/18 13:45 Dose: 650 mg Aspirin (Aspirin) 325 mg PO DAILY@1700 [facility] Last Admin: 06/22/18 17:28 Dose: 325 mg Digoxin (Lanoxin) 125 mcg PO DAILY [facility] Last Admin: 06/22/18 08:26 Dose: 125 mcg Piperacillin Sod/Tazobactam (Sod 3.375 gm/ Sodium Chloride) 100 mls @ 25 mls/ hr IVPB Q8HR [facility] Last Admin: 06/22/18 17:28 Dose: 25 mls/hr Vancomycin HCl 1,250 mg/ (Sodium Chloride) 250 mls @ 125 mls/hr IVPB Q24H [facility] Ibuprofen (Motrin) 400 mg PO Q6HR PRN PRN Reason: Mild Pain or Fever > 100.5 Lamotrigine (Lamictal) 200 mg PO TID [facility] Last Admin: 06/22/18 20:57 Dose: 200 mg Lorazepam (Ativan) 1 mg PO BID PRN PRN Reason: Anxiety Morphine Sulfate (Morphine Sulfate (Inj)) 4 mg IV Q6HR PRN PRN Reason: Severe Pain Last Admin: 06/21/18 18:41 Dose: 4 mg Multivitamins (Theragran) 1 each PO DAILY@1700 [facility] Last Admin: 06/22/18 17:28 Dose: 1 each Naloxone HCl (Narcan) 0.2 mg IV Q2M PRN PRN Reason: Opioid Reversal Oxcarbazepine (Trileptal) 300 mg PO BID [facility] Last Admin: 06/22/18 20:57 Dose: 300 mg Polyethylene Glycol (Miralax) 17 gm PO DAILY@1430 [facility] Last Admin: 06/22/18 13:46 Dose: 17 gm Sertraline HCl (Zoloft) 150 mg PO DAILY@0700 [facility] Last Admin: 06/22/18 08:26 Dose: 150 mg Verapamil HCl (Isoptin Sr) 240 mg PO DAILY@0700 [facility] Last Admin: 06/22/18 08:26 Dose: 240 mg Ziprasidone (Geodon) 80 mg PO BID@07,1999 [facility] Last Admin: 06/22/18 20:57 Dose: 80 mg Home Medications Medication Instructions Recorded Confirmed Type Aspirin 325 mg PO DAILY@17002/13/14 06/21/18 History Multivitamins, Thera [Multivitamin 1 tab PO DAILY@17002/13/14 06/21/18 History (formulary)] OXcarbazepine [Trileptal] 300 mg PO BID 02/13/14 06/21/18 History Polyethylene Glycol 3350 [Miralax] 17 gm PO DAILY@1430 02/13/14 06/21/18 History Sertraline [Zoloft] 150 mg PO DAILY@0700 02/13/14 06/21/18 History Verapamil HCl [Verapamil ER] 240 mg PO DAILY@0700 02/13/14 06/21/18 History Ziprasidone [Geodon] 80 mg PO BID@699,199902/13/14 06/21/18 History lamoTRIgine [LaMICtal] 200 mg PO TID 02/13/14 06/21/18 History Cranberry Fruit Extract [Cranberry] 1,000 mg PO DAILY@1700 01/19/18 06/21/18 History LORazepam [Ativan] 1 mg PO BID PRN 01/19/18 06/21/18 History Digoxin [Lanoxin] 125 mcg PO DAILY tab 03/13/18 06/21/18 Rx Allergies Allergy/AdvReac Type Severity Reaction Status Date / Time No Known Allergies Allergy Verified 06/21/18 13:09 Physical Exam Vitals: Vital Signs Temp Pulse Resp BP Pulse Ox 06/22/18 16:00 16 06/22/18 14:53 98.7 F 84 16 131/79 96 06/22/18 08:00 16 06/22/18 07:47 97.1 F L 76 16 126/73 98 Intake and Output 06/22/18 06/22/18 06/23/18 14:59 22:59 06:59 Other: # Voids 2 2 Weight 64.637 kg 62-year-old woman with developmental delay is comfortable HEENT: Anicteric conjunctiva are pink and moist nasal mucosa grossly intact without significant lesions, there is no thrush. Neck: The neck is supple without significant lymphadenopathy or thyromegaly. Lungs: Good bilateral air entry without significant crackles or wheezing. There is no significant bronchial sounds. There is no egophony or dullness. Heart: Regular rate and rhythm with an audible S1-S2, no S3 no S4. There is no significant murmur click or rub, PMI was nondisplaced. Abdomen: Positive bowel sounds soft and nontender without palpable masses or organomegaly. There was no guarding or rebound. Extremities: The upper extremities have excellent pulses they are symmetric, no significant petechiae or telangiectasia. No splinter hemorrhages were noted. The lower extremities are free from significant edema. The peripheral pulses were 2+ and symmetric. Skin with the nurse present the labia is evaluated there is evidence of the swelling to the right labia with erythema and tenderness in the inferior aspect and evidence of the incision and drainage site with some depth and no expressible purulence. There is no significant inguinal lymphadenopathy no other lesions are seen Neuro: She is awake and alert interactive and conversational moves upper and lower extremities without difficulty Results CBC & Chem 7: 06/22/18 08:22 06/21/18 14:15 Labs: Abnormal Lab Results - Last 24 Hours (Table) 06/22/18 Range/Units 08:22 WBC 12.7 H (3.8-10.6) k/uL Hgb 10.9 L (11.4-16.0) gm/dL Neutrophils # 9.6 H (1.3-7.7) k/uL Microbiology - Last 24 Hours (Table) 06/21/18 14:10 Urine Culture - Preliminary Urine,Voided Gram Neg Bacilli 06/21/18 18:15 Gram Stain - Preliminary Groin Wound Culture - Preliminary Presumptive MRSA 06/21/18 14:15 Blood Culture - Preliminary Blood No Growth after 24 hours 06/21/18 14:15 Gram Stain - Preliminary Groin Wound Culture - Preliminary Presumptive MRSA Laboratory Results WBC 12.7 k/uL (3.8-10.6) H 06/22/18 08:22 RBC 3.81 m/uL (3.80-5.40) 06/22/18 08:22 Hgb 10.9 gm/dL (11.4-16.0) L 06/22/18 08:22 Hct 34.4 % (34.0-46.0) 06/22/18 08:22 MCV 90.4 fL (80.0-100.0) 06/22/18 08:22 MCH 28.5 pg (25.0-35.0) 06/22/18 08:22 MCHC 31.5 g/dL (31.0-37.0) 06/22/18 08:22 RDW 14.1 % (11.5-15.5) 06/22/18 08:22 Plt Count 356 k/uL (150-450) 06/22/18 08:22 Neutrophils % 76 % 06/22/18 08:22 Lymphocytes % 14 % 06/22/18 08:22 Monocytes % 5 % 06/22/18 08:22 Eosinophils % 3 % 06/22/18 08:22 Basophils % 1 % 06/22/18 08:22 Neutrophils # 9.6 k/uL (1.3-7.7) H 06/22/18 08:22 Lymphocytes # 1.7 k/uL (1.0-4.8) 06/22/18 08:22 Monocytes # 0.6 k/uL (0-1.0) 06/22/18 08:22 Eosinophils # 0.3 k/uL (0-0.7) 06/22/18 08:22 Basophils # 0.1 k/uL (0-0.2) 06/22/18 08:22 Sodium 138 mmol/L (137-145) 06/21/18 14:15 Potassium 4.9 mmol/L (3.5-5.1) 06/21/18 14:15 Chloride 102 mmol/L (98-107) 06/21/18 14:15 Carbon Dioxide 27 mmol/L (22-30) 06/21/18 14:15 Anion Gap 9 mmol/L 06/21/18 14:15 BUN 24 mg/dL (7-17) H 06/21/18 14:15 Creatinine 1.33 mg/dL (0.52-1.04) H 06/21/18 14:15 Est GFR (CKD-EPI)AfAm 50 (>60 ml/min/1.73 sqM) 06/21/18 14:15 Est GFR (CKD-EPI)NonAf 43 (>60 ml/min/1.73 sqM) 06/21/18 14:15 Glucose 108 mg/dL (74-99) H 06/21/18 14:15 Plasma Lactic Acid [place] 1.0 mmol/L (0.7-2.0) 06/21/18 14:15 Calcium 10.2 mg/dL (8.4-10.2) 06/21/18 14:15 Total Bilirubin 0.2 mg/dL (0.2-1.3) 06/21/18 14:15 AST 17 U/L (14-36) 06/21/18 14:15 ALT 23 U/L (9-52) 06/21/18 14:15 Alkaline Phosphatase 139 U/L (38-126) H 06/21/18 14:15 Total Protein 6.9 g/dL (6.3-8.2) 06/21/18 14:15 Albumin 3.5 g/dL (3.5-5.0) 06/21/18 14:15 CA 125 Antigen 5.7 U/mL (0.0-30.1) 06/21/18 14:30 Urine Color Light Yellow 06/21/18 14:10 Urine Appearance Cloudy (Clear) H 06/21/18 14:10 Urine pH 6.0 (5.0-8.0) 06/21/18 14:10 Ur Specific [place] 1.004 (1.001-1.035) 06/21/18 14:10 Urine Protein Negative (Negative) 06/21/18 14:10 Urine Glucose (UA) Negative (Negative) 06/21/18 14:10 Urine Ketones Negative (Negative) 06/21/18 14:10 Urine Blood Trace (Negative) H 06/21/18 14:10 Urine Nitrite Positive (Negative) H 06/21/18 14:10 Urine Bilirubin Negative (Negative) 06/21/18 14:10 Urine Urobilinogen <2.0 mg/dL (<2.0) 06/21/18 14:10 Ur Leukocyte Esterase Large (Negative) H 06/21/18 14:10 Urine RBC 4 /hpf (0-5) 06/21/18 14:10 Urine WBC 31 /hpf (0-5) H 06/21/18 14:10 Ur Squamous Epith Cells <1 /hpf (0-4) 06/21/18 14:10 Urine Bacteria Occasional /hpf (None) H 06/21/18 14:10 Urine Yeast (Budding) Occasional /hpf (None) H 06/21/18 14:10 Microbiology 06/21/18 14:10 Urine,Voided Urine Culture - Preliminary Gram Neg Bacilli 06/21/18 18:15 Groin Gram Stain - Preliminary 06/21/18 18:15 Groin Wound Culture - Preliminary Presumptive MRSA 06/21/18 14:15 Blood Blood Culture - Preliminary No Growth after 24 hours 06/21/18 14:15 Groin Gram Stain - Preliminary 06/21/18 14:15 Groin Wound Culture - Preliminary Presumptive MRSA Assessment and Plan (1) Abscess of right genital labia Narrative/Plan: 62-year-old woman presents to Hospital with increasing pain and discomfort to the right labia. In the emergency center incision and drainage was performed and she's been admitted for antibiotic therapy and surgical evaluation. No evidence of necrotizing infection at this time. Wound care with the silver rope dressing is been requested he be changed every other day. Antibiotic therapy with vancomycin initiated with concerns to MRSA. He does have a history of ESBL E. coli in her urine and Unasyn was transitioned to Zosyn for now also pending further data from the genital culture from the site of the abscess. Was evidence of leukocytosis at the time of admission it is starting to improve since she is coming to hospital. Hopefully with antibiotic therapy and local care she will rapidly improve. Wound cultures will help determine overall course of antibiotic therapy. Current Visit: Yes Status: Acute Code(s): N76.4 - ABSCESS OF VULVA SNOMED Code(s): 435643626 (2) Recurrent UTI Current Visit: No Status: Acute Code(s): N39.0 - URINARY TRACT INFECTION, SITE NOT SPECIFIED SNOMED Code(s): 635156007
[2018-06-23] MEDS: ZIPRASIDONE 80 MG CAP PO SCH ×2 (06:06→20:43)
[2018-06-23] MEDS: SERTRALINE 50 MG TAB PO SCH (06:06)
[2018-06-23] MEDS: VERAPAMIL SR 240 MG TABLET.ER PO SCH (06:06)
[2018-06-23] MEDS: lamoTRIgine 100 MG TAB PO SCH ×3 (07:53→20:43)
[2018-06-23] MEDS: DIGOXIN 125 MCG TAB PO SCH (07:54)
[2018-06-23] MEDS: PIPERACILLIN-TAZOBACTAM 3.375 GM in SODIUM CHLORIDE 0.9% 100 ML IVPB SCH ×3 (07:54→23:14)
[2018-06-23] MEDS: OXcarbazepine 300 MG TAB PO SCH ×2 (07:54→20:44)
[2018-06-23 08:21] LABS: HCT 34.9 % (34.0-46.0); HGB 11.2 gm/dL (11.4-16.0); MCH 28.9 pg (25.0-35.0); MCV 90.2 fL (80.0-100.0); Platelet Count 395 k/uL (150-450); RBC 3.86 m/uL (3.80-5.40); WBC 9.2 k/uL (3.8-10.6)
[2018-06-23 08:34] LABS: Potassium 4.4 mmol/L (3.5-5.1)
[2018-06-23] MEDS: VANCOMYCIN 1,250 MG in SODIUM CHLORIDE 0.9% 250 ML IVPB SCH (11:37)
[2018-06-23] MEDS: POLYETHYLENE GLYCOL 3350 17 GM POWD.PACK PO SCH (14:49)
[2018-06-23] MEDS: ASPIRIN 325 MG TAB PO SCH (15:50)
[2018-06-23] MEDS: MULTIVITAMINS, THERA 1 EACH TAB PO SCH (15:50)
--- NOTE | 2018-06-23 18:52 | PN ---
PROGRESS NOTE CHIEF COMPLAINT: Re-evaluation. HISTORY OF PRESENT ILLNESS: This 62-year-old female was admitted to the hospital with infection of the right labia with an early abscess formation. She had some degree of cellulitis of the right labia. Cultures have shown MRSA. The patient is on vancomycin and also on Zosyn. ID has seen the patient. The patient has also been seen by MEDICATION COORDINATOR and an I&D has been done. The patient is feeling much better. She says she has no pain now. The patient's labial wound is not examined by me today; waiting for the MEDICATION COORDINATOR doctors to evaluate that today. She has a packing there. However, on examination the patient's right groin is not tender. The patient's lymph nodes are barely palpable. The patient feels much better. REVIEW OF SYSTEMS: NEURO: Denies any headaches, dizziness. PSYCH: No anxiety. CARDIAC: No chest pain, angina, palpitations. RESPIRATORY: No shortness of breath, cough. GI: No nausea, vomiting, abdominal pain, diarrhea. : No symptoms of dysuria or hematuria. EXTREMITIES: Denies pain. CONSTITUTIONAL: No fever or chills. PHYSICAL EXAMINATION: Pleasant female. No distress. Vital signs reveal temperature 97.2, pulse 70, respirations 16, blood pressure 131/77, pulse ox 96% on room air. HEENT: Normocephalic. NECK: No JVD. CHEST: Clear to auscultation. CARDIAC: Normal S1, S2 with no gallops. Regular rhythm. ABDOMEN: Soft. Bowel sounds present. Extremities reveal no edema. No tenderness. Neurologically awake, alert, oriented x3 with well-coordinated movements. LABORATORY ASSESSMENT: Wound culture did show Staph aureus, -resistant. Urine culture is growing more than 100,000 bacteria, which probably are going to be an multiple antibiotic-resistant E coli. The patient has no symptoms regarding urination. ASSESSMENT: 1. Cellulitis and abscess, right labia. 2. Asymptomatic urinary chronic recurrent infections. 3. Mental retardation. 4. Seizure disorder. 5. History of paroxysmal atrial flutter. PLAN: The patient is stable. Continue present medical regimen. Patient does not seem to be in any distress. Will continue present regimen. Her white count has come back to normal. Renal function has remained stable. MMODL / IJN: [id number] /
--- NOTE | 2018-06-24 07:49 | P.PN ---
Progress Note - Text Progress Note Date: 06/23/18 Pt seen and examined with RN. Pt feels good today. No pain unless I am palpating the right labia. We cleaned the area with a sterile saline flush and then placed the silver rope. It looks like good granulation tissue, minimal discharge, no odor. There is mild erythema beneath the opening on the right labia and some slight induration. Assessment 1. cellulitis of right labia-suspect MRSA Plan 2. cont sitz bath and dressing changes 3. cont abx
[2018-06-24 08:24] LABS: Potassium 4.5 mmol/L (3.5-5.1)
--- NOTE | 2018-06-24 08:56 | P.PN ---
Progress Note - Text Progress Note Date: 06/24/18 Pt seen and examined. She says she is in no pain. She is in no pain even when I palpate the right labia or push on her groin. She is ambulating and voiding without difficulty. I did discuss toilet hygeine with her. When I examined her, she was in a diaper that was not clean, and she had not wiped all the feces after a bowel movement. We discussed how this can lead to some infections, she did come in with a UTI as well as this cellulitis. On exam of the labia, it is less swollen today. The area of erythema and induration is less. The hole is still present but healing with no drainage. Culture of urine showed E. Coli. Culture of joon shows MRSA sensitive to vanco that she is on. She may be able to be managed outpatient as long as there is someone to help her care for the area. She needs help, whether it is a family member or medical staff, to help clean the area at least twice a day and monitor it so it is not getting worse. After she does go home she can follow up with Dr Mcduffie in about 10-14 days to ensure proper healing.
[2018-06-24] MEDS: PIPERACILLIN-TAZOBACTAM 3.375 GM in SODIUM CHLORIDE 0.9% 100 ML IVPB SCH (09:03)
[2018-06-24] MEDS: POLYETHYLENE GLYCOL 3350 17 GM POWD.PACK PO SCH (09:07)
[2018-06-24] MEDS: SERTRALINE 50 MG TAB PO SCH (09:07)
[2018-06-24] MEDS: DIGOXIN 125 MCG TAB PO SCH (09:07)
[2018-06-24] MEDS: lamoTRIgine 100 MG TAB PO SCH ×3 (09:07→20:36)
[2018-06-24] MEDS: ZIPRASIDONE 80 MG CAP PO SCH ×2 (09:08→20:36)
[2018-06-24] MEDS: OXcarbazepine 300 MG TAB PO SCH ×2 (09:08→20:36)
[2018-06-24] MEDS: VERAPAMIL SR 240 MG TABLET.ER PO SCH (09:08)
--- NOTE | 2018-06-24 12:02 | P.PN ---
Subjective Progress Note Date: 06/24/18 Principal diagnosis: This 62-year-old female was admitted to the hospital with a right labial abscess. Patient was seen by the clinical systems analyst, the surgeon, ARTIE. Patient has had no evidence of sepsis fever. She did have a leukocytosis which is resolved. Had the culture grew MRSA. She is on local wound care as well as has been receiving vancomycin since admission. The patient has a previous history of chronic E. coli urinary tract colonization with intermittent UTI. The culture is positive. The patient is on Zosyn for the same. Patient has no urinary tract infection symptoms. We will await the advice from infectious disease service regarding further management. He doesn't seem the patient's current require vancomycin to continue beyond the present hospital stay. She is on Zosyn as well. Again, await the ID recommendation. The patient has a history of mental retardation frequent fecal contamination of the genitals. Her caregivers diligently work with her on that. I did discuss with the sister. There is possible for them to continue wound care as recommended by the clinical systems analyst at home. If Dr. Mckeon feels the patient needs continued prolonged IV antibiotics that will make arrangements for nursing facility. Patient denies any pain in the right groin and labia. The pain is totally resolved. REVIEW OF SYSTEMS: Neuro: Denies any headaches dizziness. Psych: Denies anxiety depression feels oriented. Cardiac: Denies chest pain and angina palpitations. Respiratory: Denies shortness of breath cough. GI: Denies nausea vomiting or abdominal pain. No diarrhea or constipation, no bowel movement yet. : Denies dysuria hematuria. Extremities: Denies pain. No edema. Skin: Intact. Constitutional: No fever, chills. Objective - Vital Signs Vital signs: Vital Signs Temp 97.3 F L 06/24/18 05:41 Pulse 74 06/24/18 05:41 Resp 16 06/24/18 05:41 BP 139/73 06/24/18 05:41 Pulse Ox 98 06/24/18 05:41 Intake & Output 06/23/18 06/24/18 06/24/18 18:59 06:59 18:59 Other: # Voids 5 4 # Bowel Movements 1 PHYSICAL EXAMINATION: Cooperative, at present in no acute distress. HEENT: Neck supple. No JVD. Chest: Clear to auscultation percussion. Cardiac: Normal S1-S2 no gallops no murmur . Abdomen: Soft bowel sounds present. No tenderness right inguinal area, previously palpable lymph node not palpable now . Extremities: No edema no tenderness Neurologically: Awake, alert, oriented to person with well-coordinated movements. - Labs CBC & Chem 7: 06/23/18 07:51 06/24/18 07:49 Labs: Abnormal Lab Results - Last 24 Hours (Table) 06/24/18 Range/Units 07:49 Creatinine 1.46 H (0.52-1.04) mg/dL Glucose 114 H (74-99) mg/dL Microbiology - Last 24 Hours (Table) 06/21/18 14:10 Urine Culture - Final Urine,Voided Escherichia coli 06/21/18 18:15 Gram Stain - Final Groin Wound Culture - Final Methicillin resist S. aureus 06/21/18 14:15 Blood Culture - Preliminary Blood No Growth after 48 hours 06/21/18 14:15 Gram Stain - Final Groin Wound Culture - Final Methicillin resist S. aureus Assessment and Plan Assessment: ASSESSMENT: 1. Abscess right labia. 2. Local MRSA infection right labia. 3. Bactiurea with no symptoms. 4. 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 5. Mental retardation. 6. Seizure disorder. 7. Paroxysmal typical atrial flutter . PLAN: Continue present medical regimen. Await input from ID regarding continuation of treatment duration.
[2018-06-24] MEDS: VANCOMYCIN 1,250 MG in SODIUM CHLORIDE 0.9% 250 ML IVPB SCH (12:26)
[2018-06-24] MEDS: ERTAPENEM 1 GM in SODIUM CHLORIDE 0.9% 50 ML IVPB SCH (14:43)
[2018-06-24] MEDS: ASPIRIN 325 MG TAB PO SCH (15:31)
[2018-06-24] MEDS: MULTIVITAMINS, THERA 1 EACH TAB PO SCH (15:31)
[2018-06-24 17:33] LABS: Appearance,Urine Clear (Clear); Bilirubin,Urine Negative (Negative); Blood,Urine Negative (Negative); Color,Urine Light Yellow; Glucose,Urine (UA) Negative (Negative); Ketones,Urine Negative (Negative); Leukocyte Esterase,Urine Small (Negative); Nitrite,Urine Negative (Negative); Protein,Urine Negative (Negative); Specific Gravity,Urine 1.004 (1.001-1.035); Squamous Epithelial Cell,Urine <1 /hpf (0-4); Urobilinogen,Urine <2.0 mg/dL (<2.0)
[2018-06-25 00:47] VITALS: RESP 18; TEMP 97.9
--- NOTE | 2018-06-25 01:48 | PN ---
PROGRESS NOTE DATE OF SERVICE: 06/24/2018. REASON FOR FOLLOWUP: 1. Right labial abscess. 2. Urinary tract infection. 3. Discharge antibiotic recommendation. INTERVAL HISTORY: The patient is a 70-year-old female, admitted to hospital with a right labial abscess with spontaneous drainage. Culture did show MRSA with urine showing ESBL E coli. The patient is afebrile today. Denies having any fever or chills. Denies having any chest pain or shortness of breath or cough. No abdominal pain or any pain to the pelvic area and no diarrhea. REVIEW OF SYSTEMS: Positive points have been mentioned in HPI. Rest of systems is negative. Past medical and surgical history reviewed. Medication reviewed. PHYSICAL EXAMINATION: Blood pressure 121/73, pulse of 80, temperature 98.4. She is 95% on room air. General description is a middle aged female, lying in bed in no distress. Respiratory system: Unlabored breathing. Clear to auscultation anteriorly. Heart S1, S2. Regular rate and rhythm. Abdomen is soft, no tenderness. Extremities: No edema of the feet. Examination of the right labia, the patient did have a small wound with minimal induration and no surrounding redness or swelling or foul smelling drainage. Neurological: Patient is awake, alert, and oriented times three. Mood and affect normal. LABS: BUN of 14, creatinine 1.46, hemoglobin 11.1, white count 9.2. Urine showing an ESBL E coli. DIAGNOSTIC IMPRESSION AND PLAN: 1. Patient with right labial abscess. Culture has been positive for MRSA. The patient noticed to have worsening of her kidney function hence we will discontinue the vancomycin and start the patient on daptomycin and hopefully finish therapy with oral antibiotic. No need for outpatient antibiotic therapy. 2. Patient with ESBL E coli urinary tract infection. We will discontinue the Zosyn. Start the patient on Invanz 1 g daily. Repeat urine cultures that will determine her discharge antibiotics for the urinary tract infection. 3. Continue supportive care. 4. As far as the local wound care, we will with wound with Aquacel Silver packing and discontinue at this point. MMODL / IJN: [id number] /
[2018-06-25 06:09] VITALS: BP 148/89; PULSE 76
[2018-06-25] MEDS: ERTAPENEM 1 GM in SODIUM CHLORIDE 0.9% 50 ML IVPB SCH (07:29)
[2018-06-25 07:32] LABS: Calcium 10.2 mg/dL (8.4-10.2); Potassium 5.1 mmol/L (3.5-5.1)
[2018-06-25] MEDS: DIGOXIN 125 MCG TAB PO SCH (07:42)
[2018-06-25] MEDS: lamoTRIgine 100 MG TAB PO SCH (07:42)
[2018-06-25] MEDS: ZIPRASIDONE 80 MG CAP PO SCH (07:42)
[2018-06-25] MEDS: VERAPAMIL SR 240 MG TABLET.ER PO SCH (07:42)
[2018-06-25] MEDS: SERTRALINE 50 MG TAB PO SCH (07:42)
[2018-06-25] MEDS: OXcarbazepine 300 MG TAB PO SCH (07:43)
[2018-06-25] MEDS: POLYETHYLENE GLYCOL 3350 17 GM POWD.PACK PO SCH (08:27)
--- NOTE | 2018-06-25 12:49 | P.DS ---
Providers Date of admission: 06/21/18 17:12 Expected date of discharge: 06/25/18 Attending physician: Oral Hernandez Consults: 06/21/18 18:06 Consult Physician Stat Consulting Provider: Benedicto Mckeon Consult Reason/Comments: Labial abscess Do you want consulting provider notified?: Yes Consult Physician Stat Consulting Provider: Eladia Mcduffie Consult Reason/Comments: Labial abscess Do you want consulting provider notified?: Yes 06/21/18 18:07 Consult Physician Stat Consulting Provider: Kacy Curiel Consult Reason/Comments: labial abscess Do you want consulting provider notified?: Yes Primary care physician: Oral Hernandez Hospital Course: This 62-year-old female was admitted to the hospital after initial evaluation in the office and noted to have recurrent right labial abscess. She was referred to the emergency room. Subsequently [facility] physician Dr. Mcduffie did see her in the ER and drained an abscess in the emergency room. A culture was taken. It grew MRSA. Patient had no fever or chills she did have leukocytosis patient did not appear septic. The patient did have right inguinal horizontal lymphadenitis which resolved rapidly. The patient has no edema of the labia and is localizing duration in the lower pole of the labia. The patient has an opening with no drainage. Patient was also referred to ID by the [facility] physicians. They put her on vancomycin and Zosyn. Patient had E. coli in her urine. She had absolutely no urinary symptoms. 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 Believe it is colonized the urinary tract. Again as mentioned since the patient had no symptoms I did not feel patient requires antibiotics. The patient was discharged home on doxycycline per recommendation of ID it would cover both the MRSA as well as the urinary tract bacteria. the patient has a clean urine analysis done on 06/24/2018. Culture of that is pending. Patient has mentioned about remained in stable condition. At this point she is can be discharged home. Her renal function at worsened and nephrolithiasis relating to her contrast dye injected in the emergency room for a CAT scan of the abdomen and pelvis for unclear reason. Patient had cellulitis and abscess of the labia. I do not believe it needed to have a CAT scan. There was no evidence of necrotizing fasciitis. Patient does have some mental retardation and her hygiene for the perineum is limited. Her caregiver however is very concessions and keep working with the patient regarding her so hygiene. Patient is can be discharged home and will be followed up on Tuesday or of this week when we'll repeat her renal function. She has been advised regarding personal hygiene. I did discuss with her sister who is a nurse and is can monitor her surgical incision drainage site. The patient will take her doxycycline with a big glass of water. My final diagnoses 1. Right labial abscess with MRSA 2. E. coli urine culture with no symptoms. 3. Asymptomatic bacteriuria 4. Acute kidney injury possibly secondary to contrast study 5. Chronic kidney disease stage III 6. Seizure disorder 7. Paroxysmal typical atrial flutter 8. Mental retardation Plan - Discharge Summary Discharge Rx Participant: No New Discharge Prescriptions: New Doxycycline Hyclate 100 mg PO BID 3 Days #14 tab Continue Polyethylene Glycol 3350 [Miralax] 17 gm PO DAILY@1430 Verapamil HCl [Verapamil ER] 240 mg PO DAILY@0700 Aspirin 325 mg PO DAILY@1700 Ziprasidone [Geodon] 80 mg PO BID@07,1999 Sertraline [Zoloft] 150 mg PO DAILY@0700 lamoTRIgine [LaMICtal] 200 mg PO TID OXcarbazepine [Trileptal] 300 mg PO BID Multivitamins, Thera [Multivitamin (formulary)] 1 tab PO DAILY@1700 Cranberry Fruit Extract [Cranberry] 1,000 mg PO DAILY@1700 LORazepam [Ativan] 1 mg PO BID PRN PRN Reason: Anxiety Digoxin [Lanoxin] 125 mcg PO DAILY tab Discharge Medication List Aspirin 325 mg PO DAILY@1700 02/13/14 [History] Multivitamins, Thera [Multivitamin (formulary)] 1 tab PO DAILY@1700 02/13/14 [ History] OXcarbazepine [Trileptal] 300 mg PO BID 02/13/14 [History] Polyethylene Glycol 3350 [Miralax] 17 gm PO DAILY@1430 02/13/14 [History] Sertraline [Zoloft] 150 mg PO DAILY@0700 02/13/14 [History] Verapamil HCl [Verapamil ER] 240 mg PO DAILY@0700 02/13/14 [History] Ziprasidone [Geodon] 80 mg PO BID@0700,199902/13/14 [History] lamoTRIgine [LaMICtal] 200 mg PO TID 02/13/14 [History] Cranberry Fruit Extract [Cranberry] 1,000 mg PO DAILY@1700 01/19/18 [History] LORazepam [Ativan] 1 mg PO BID PRN 01/19/18 [History] Digoxin [Lanoxin] 125 mcg PO DAILY tab 03/13/18 [Rx] Doxycycline Hyclate 100 mg PO BID 3 Days #14 tab 06/25/18 [Rx] Follow up Appointment(s)/Referral(s): Oral Hernandez MD [Primary Care Provider] - 1-2 days Eladia Mcduffie DO [Doctor of Osteopathic Medicine] - 1 Week Rosie Magana, [NON-STAFF] - As Needed [facility], [NON-STAFF] - As Needed Discharge Disposition: HOME SELF-CARE
== END 2018-06-25 14:04 | disposition home health service (06) | DRG 746 ==
LOC: EC 12:27 → 4MS4W 17:12
PROVIDERS: ADMIT Internal Medicine; ATTEND Internal Medicine
PROC: 0U9M0ZX Drainage of Vulva, Open Approach, Diagnostic (ICD-10-PCS; principal; 2018-06-21)
DX: N76.4 Abscess of vulva (principal); I48.3 Typical atrial flutter; N39.0 Urinary tract infection, site not specified; I48.0 Paroxysmal atrial fibrillation; F25.9 Schizoaffective disorder, unspecified; N18.3 Chronic kidney disease, stage 3 (moderate); G40.909 Epilepsy, unspecified, not intractable, without status epilepticus; B95.62 Methicillin resistant Staphylococcus aureus infection as the cause of diseases classified elsewhere; D64.9 Anemia, unspecified; N76.2 Acute vulvitis; N20.0 Calculus of kidney; I12.9 Hypertensive chronic kidney disease with stage 1 through stage 4 chronic kidney disease, or unspecified chronic kidney disease; N83.202 Unspecified ovarian cyst, left side; F42.9 Obsessive-compulsive disorder, unspecified; B96.20 Unspecified Escherichia coli [E. coli] as the cause of diseases classified elsewhere; K80.20 Calculus of gallbladder without cholecystitis without obstruction; F71 Moderate intellectual disabilities; R62.50 Unspecified lack of expected normal physiological development in childhood; Z16.12 Extended spectrum beta lactamase (ESBL) resistance; Z79.82 Long term (current) use of aspirin; Z79.899 Other long term (current) drug therapy; Z87.440 Personal history of urinary (tract) infections; Z80.7 Family history of other malignant neoplasms of lymphoid, hematopoietic and related tissues; Z82.49 Family history of ischemic heart disease and other diseases of the circulatory system
CPT/HCPCS: 36415; 56405; 74177; 76856; 80048; 80053; 81001; 83605; 85025; 85027; 86304; 87040; 87070; 87077; 87086; 87186; 87205; 93005; 96361; 96365; 96375; 99285

== ENCOUNTER → 2018-08-08 | Outpatient (CLI) | payer MEDICARE, OTHER ==
--- NOTE | 2018-08-08 14:52 | US ---
EXAMINATION TYPE: US pelvic complete DATE OF EXAM: 08/08/2018 COMPARISON: 06/22/2018 CLINICAL HISTORY: Previous Left Ovarion Cyst N83.0. Follow up left ovarian cyst TECHNIQUE: Transabdominal (TA). Transabdominal sonographic images of the pelvis were acquired. Transvaginal ultrasound deferred due to patient mental status Date of LMP: BUSINESS OFFICE TECHNICIAN EXAM MEASUREMENTS: Uterus: 4.4 x 3.2 x 2.0 cm Endometrial Stripe: 0.2 cm Right Ovary: 1.5 x 1.0 x 1.2 cm Left Ovary: 4.1 x 3.5 x 3.0 cm 1. Uterus: Anteverted Appears small in size 2. Endometrium: wnl 3. Right Ovary: wnl 4. Left Ovary: Simple cystic appearing lesion seen - 3.5 x 3.0 x 2.4 cm . This is essentially stable in size from comparison. 5. Bilateral Adnexa: wnl 6. Posterior cul-de-sac: no free fluid IMPRESSION: 1. Stable size hypoechoic area within the left ovary. Correlation with laboratory results is recommen ded. Neoplasm is not excluded.
== END | disposition home or self-care (01) ==
LOC: RADUSWWP 09:40
PROVIDERS: ATTEND Obstetrics & Gynecology
DX: R93.5 Abnormal findings on diagnostic imaging of other abdominal regions, including retroperitoneum (principal); N83.202 Unspecified ovarian cyst, left side
CPT/HCPCS: 76856

== ENCOUNTER 2018-11-26 17:17 | Inpatient (IN) | payer MEDICARE, OTHER ==
[2018-11-26] MEDS ORDERED: LORazepam 2 MG/ML INJ IV STA (17:23)
[2018-11-26] MEDS ORDERED: SODIUM CHLORIDE 0.9% 1,000 ML IV STA (17:23)
[2018-11-26] MEDS ORDERED: SODIUM CHLORIDE 0.9% 500 ML 500 ML IV STA (17:23)
[2018-11-26 17:59] LABS: Basophils % (A) 0 %; Eosinophils # (A) 0.1 k/uL (0-0.7); Eosinophils % (A) 1 %; HCT 38.3 % (34.0-46.0); HGB 12.7 gm/dL (11.4-16.0); Lymphocytes % (A) 11 %; MCH 28.8 pg (25.0-35.0); MCHC 33.2 g/dL (31.0-37.0); MCV 86.7 fL (80.0-100.0); Mean Platelet Volume 6.6; Monocytes # (A) 0.5 k/uL (0-1.0); Monocytes % (A) 5 %; Neutrophils % (A) 82 %; Platelet Count 242 k/uL (150-450); RBC 4.41 m/uL (3.80-5.40); WBC 9.8 k/uL (3.8-10.6)
[2018-11-26 18:13] LABS: ALT 20 U/L (9-52); AST 25 U/L (14-36); Acetaminophen <10.0 ug/mL; Albumin 4.3 g/dL (3.5-5.0); Alkaline Phosphatase 166 U/L (38-126); Blood Urea Nitrogen 22 mg/dL (7-17); Calcium 10.2 mg/dL (8.4-10.2); Carbon Dioxide 25 mmol/L (22-30); Digoxin 1.3 ng/mL; Glucose 106 mg/dL (74-99); Salicylate <1.0 mg/dL; Total Bilirubin 0.4 mg/dL (0.2-1.3); Total Protein 7.4 g/dL (6.3-8.2)
[2018-11-26 18:17] LABS: Anion Gap 12 mmol/L; Chloride 97 mmol/L (98-107); Potassium 4.5 mmol/L (3.5-5.1); Sodium 134 mmol/L (137-145)
--- NOTE | 2018-11-26 19:21 | ED ---
Seizure HPI - General Chief Complaint: Seizure Stated Complaint: seizures Time Seen by Provider: 11/26/18 17:22 Source: patient, EMS, RN notes reviewed, old records reviewed Mode of arrival: EMS Limitations: altered mental status, physical limitation - History of Present Illness Initial Comments: This is a 63-year-old female the ER for evaluation. Patient had history of seizures presented with seizures and her intractable and new. Patient herself is denying any complaints but again is postictal history obtained from family as patient is a poor strain secondary to postictal state per history patient's been taking seizure medication as prescribed MD Complaint: seizure, feel seizure coming on -: hour(s) Description of Episode: loss of consciousness, tonic-clonic movement, post-event confusion -: minutes(s) Witnessed: yes - by bystander Trauma: No Seizure History: known seizure disorder, compliant with medication Place: home Possible Precipitating Event: none Associated Symptoms: denies other symptoms Treatments Prior to Arrival: none - Related Data Home Medications Medication Instructions Recorded Confirmed Aspirin 325 mg PO DAILY@169902/13/14 11/26/18 Multivitamins, Thera [Multivitamin 1 tab PO DAILY@169902/13/14 11/26/18 (formulary)] OXcarbazepine [Trileptal] 300 mg PO BID@07,199902/13/14 11/26/18 Sertraline [Zoloft] 150 mg PO DAILY@0702/13/14 11/26/18 Verapamil HCl [Verapamil ER] 240 mg PO DAILY@0702/13/14 11/26/18 Ziprasidone [Geodon] 80 mg PO BID@0700,199902/13/14 11/26/18 lamoTRIgine [LaMICtal] 200 mg PO TID@0700,1400,199902/13/14 11/26/18 Cranberry Fruit Extract [Cranberry] 1,000 mg PO DAILY@169901/19/18 11/26/18 Clotrimazole [Lotrimin AF] 1 applic TOPICAL HS@199911/26/18 11/26/18 Digoxin [Lanoxin] 125 mcg PO DAILY@0700,199911/26/18 11/26/18 Docusate [Colace] 100 mg PO DAILY@0711/26/18 11/26/18 Allergies Allergy/AdvReac Type Severity Reaction Status Date / Time No Known Allergies Allergy Verified 11/26/18 19:21 Review of Systems ROS Statement: Those systems with pertinent positive or pertinent negative responses have been documented in the HPI. ROS Other: All systems not noted in ROS Statement are negative. Past Medical History Past Medical History: Atrial Fibrillation, Hypertension, Pneumonia, Seizure Disorder Additional Past Medical History / Comment(s): Vertigo, paroxysmal atrial fibrillation, moderate intellectual disability, SEPTEMBER 2016 UTI AND BACTEREMIA History of Any Multi-Drug Resistant Organisms: ESBL Date of last positivie culture/infection: 11/03/18 MDRO Source:: urine - E coli ESBL Past Surgical History: No Surgical Hx Reported Additional Past Surgical History / Comment(s): hx picc line-since removed Past Anesthesia/Blood Transfusion Reactions: No Reported Reaction Additional Past Anesthesia/Blood Transfusion Reaction / Comment(s): daycare provider says not that she knows of Past Psychological History: Schizoaffective Disorder Smoking Status: Never smoker Past Alcohol Use History: None Reported Past Drug Use History: None Reported - Past Family History Father Family Medical History: Cancer Additional Family Medical History / Comment(s): lymphoma Mother Family Medical History: AFIB, Congestive Heart Failure (CHF) General Exam Limitations: altered mental status General appearance: alert, in no apparent distress Head exam: Present: atraumatic, normocephalic, normal inspection Eye exam: Present: normal appearance, PERRL, EOMI. Absent: scleral icterus, conjunctival injection, periorbital swelling ENT exam: Present: normal exam, mucous membranes moist Neck exam: Present: normal inspection. Absent: tenderness, meningismus, lymphadenopathy Respiratory exam: Present: normal lung sounds bilaterally. Absent: respiratory distress, wheezes, rales, rhonchi, stridor Cardiovascular Exam: Present: regular rate, normal rhythm, normal heart sounds. Absent: systolic murmur, diastolic murmur, rubs, gallop, clicks GI/Abdominal exam: Present: soft, normal bowel sounds. Absent: distended, tenderness, guarding, rebound, rigid Extremities exam: Present: normal inspection, full ROM, normal capillary refill. Absent: tenderness, pedal edema, joint swelling, calf tenderness Back exam: Present: normal inspection Neurological exam: Present: alert, oriented X3, CN II-XII intact Psychiatric exam: Present: normal affect, normal mood Skin exam: Present: warm, dry, intact, normal color. Absent: rash Course Vital Signs 11/26/18 11/26/18 11/26/18 17:23 17:30 18:00 Temperature 98.7 F Pulse Rate 98 93 114 H Respiratory 18 18 20 Rate Blood Pressure 146/92 146/92 157/91 O2 Sat by Pulse 100 Oximetry 11/26/18 11/26/18 18:30 19:00 Temperature Pulse Rate 103 H 94 Respiratory 21 14 Rate Blood Pressure 181/98 148/98 O2 Sat by Pulse Oximetry - Reevaluation(s) Reevaluation #1: 11/26/18 20:36 Medical record is reviewed Reevaluation #2: 11/26/18 20:36 Patient has recurrent seizure here in the ER Medical Decision Making - Medical Decision Making 83 female the ER for evaluation with intractable seizures will admit for seizure disorder medication. - Lab Data Result diagrams: 11/27/18 07:04 11/27/18 07:04 Lab Results 11/26/18 11/26/18 11/26/18 Range/Units 17:26 17:26 20:17 WBC 9.8 (3.8-10.6) k/uL RBC 4.41 (3.80-5.40) m/uL Hgb 12.7 (11.4-16.0) gm/dL Hct 38.3 (34.0-46.0) % MCV 86.7 (80.0-100.0) fL MCH 28.8 (25.0-35.0) pg MCHC 33.2 (31.0-37.0) g/dL RDW 14.0 (11.5-15.5) % Plt Count 242 (150-450) k/uL Neutrophils % 82 % Lymphocytes % 11 % Monocytes % 5 % Eosinophils % 1 % Basophils % 0 % Neutrophils # 8.0 H (1.3-7.7) k/uL Lymphocytes # 1.0 (1.0-4.8) k/uL Monocytes # 0.5 (0-1.0) k/uL Eosinophils # 0.1 (0-0.7) k/uL Basophils # 0.0 (0-0.2) k/uL Sodium 134 L (137-145) mmol/L Potassium 4.5 (3.5-5.1) mmol/L Chloride 97 L (98-107) mmol/L Carbon Dioxide 25 (22-30) mmol/L Anion Gap 12 mmol/L BUN 22 H (7-17) mg/dL Creatinine 1.10 H (0.52-1.04) mg/dL Est GFR (CKD-EPI)AfAm 63 (>60 ml/min/1.73 sqM) Est GFR (CKD-EPI)NonAf 54 (>60 ml/min/1.73 sqM) Glucose 106 H (74-99) mg/dL Calcium 10.2 (8.4-10.2) mg/dL Total Bilirubin 0.4 (0.2-1.3) mg/dL AST 25 (14-36) U/L ALT 20 (9-52) U/L Alkaline Phosphatase 166 H (38-126) U/L Total Protein 7.4 (6.3-8.2) g/dL Albumin 4.3 (3.5-5.0) g/dL Urine Color Colorless Urine Appearance Clear (Clear) Urine pH 6.5 (5.0-8.0) Ur Specific Gibson 1.005 (1.001-1.035) Urine Protein Negative (Negative) Urine Glucose (UA) Negative (Negative) Urine Ketones Negative (Negative) Urine Blood Negative (Negative) Urine Nitrite Negative (Negative) Urine Bilirubin Negative (Negative) Urine Urobilinogen <2.0 (<2.0) mg/dL Ur Leukocyte Esterase Small H (Negative) Urine RBC <1 (0-5) /hpf Urine WBC 5 (0-5) /hpf Ur Squamous Epith Cells 1 (0-4) /hpf Urine Bacteria Rare H (None) /hpf Digoxin 1.3 ng/mL Salicylates <1.0 mg/dL Urine Opiates Screen Not Detected (NotDetected) Ur Oxycodone Screen Not Detected (NotDetected) Urine Methadone Screen Not Detected (NotDetected) Ur Propoxyphene Screen Not Detected (NotDetected) Acetaminophen <10.0 ug/mL Ur Barbiturates Screen Not Detected (NotDetected) U Tricyclic Antidepress Not Detected (NotDetected) Ur Phencyclidine Scrn Not Detected (NotDetected) Ur Amphetamines Screen Not Detected (NotDetected) U Methamphetamines Scrn Not Detected (NotDetected) U Benzodiazepines Scrn Not Detected (NotDetected) Urine Cocaine Screen Not Detected (NotDetected) U Marijuana (THC) Screen Not Detected (NotDetected) - Radiology Data Radiology results: report reviewed (CT brain negative for acute disease), image reviewed Disposition Clinical Impression: 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
[2018-11-26] MEDS ORDERED: levETIRAcetam IV 1,000 MG in SALINE 1 100ML.BAG IVPB STA (20:23)
[2018-11-26] MEDS ORDERED: LORazepam 2 MG/ML INJ IV PRN (20:26)
--- NOTE | 2018-11-26 21:03 | CT ---
EXAMINATION TYPE: CT brain wo con DATE OF EXAM: 11/26/2018 COMPARISON: 04/15/2018 INDICATION: Pain, seizure activity DLP: 1113.4 mGycm, Automated exposure control for dose reduction was used. CONTRAST: None CT of the brain is performed utilizing 3 mm thick sections through the posterior fossa and 3 mm thick sections through the remaining calvarium. Study is performed within 24 hours of arrival to the hosp [facility]. No abnormal hyperdensity is present to suggest an acute intracranial hemorrhage. No mass lesion is evident. There is poor differentiation of the chester-white matter. However, this appe arance is stable from 04/15/2018 examination. No acute infarcts are evident. Ventricles and sulci are appropriate for the patient age. Small retention cyst is within the left maxillary sinus. Remaining Paranasal sinuses and mastoid air cells within the [id number] are clear. IMPRESSIONS: 1. No suspicious acute changes intracranial brain.
[2018-11-26 22:18] LABS: Amphetamine Screen,Urine Not Detected (NotDetected); Barbiturate Screen,Urine Not Detected (NotDetected); Benzodiazepines Screen,Urine Not Detected (NotDetected); Cocaine Screen,Urine Not Detected (NotDetected); Methadone Screen, Urine Not Detected (NotDetected); Opiate Screen,Urine Not Detected (NotDetected); Oxycodone Screen, Urine Not Detected (NotDetected); Phencyclidine Screen,Urine Not Detected (NotDetected); Tricyclic Antidepressant,Urine Not Detected (NotDetected); Urn Cannabinoid Scrn Not Detected (NotDetected)
--- NOTE | 2018-11-26 22:18 | P.HPIM ---
History of Present Illness H&P Date: 11/26/18 Chief Complaint: status epilepticus 63 year old female with history of seizure disorder since childhood. patient lives at a support custodial, today she was out with her sister in the car when she had an episode where she was grunting, and seemed to have hard time breathing, with tonic contractions of her upper extremities associated with loss of bladder control, per the sister she suspected a seizure attack, but it was not typical of her petite mal , however the sister also recalls that the patient used to have grand mal seizures but she has never witnessed one. the episode lasted 4 minutes, then by the time she got home around 30 min later, she had another episode, this time was similar event however the patient did not seem to return to her normal self, for which family notified EMS and brought to the ER, where she had a third episode followed by more prolonged post ictal status where the patient did not return to her normal self. patient is unable to provide any meaningful history and history was obtained by talking to her family. in the ED workup was pretty much unremarkable including brain CT, patient was loaded with keppra , and admitted for further management for status epilepticus. no report of fever, cough, diarrhea or abd pain. patient is known to have recurrent UTI. she has received a course of antibiotic with augmentin which she finished a week ago, patient sister is not sure if bactrim was given too for at least a short period . otherwise her most recent seizure has been few months ago where she had a petite mal. no recent changes in her medications except for the antibiotics. patient is reported to be compliant with her meds Review of Systems unable to obtain, patient has developmental and intellectual delays Past Medical History Past Medical History: Atrial Fibrillation, Hypertension, Pneumonia, Seizure Disorder Additional Past Medical History / Comment(s): Vertigo, paroxysmal atrial fibrillation, moderate intellectual disability, SEPTEMBER 2016 UTI AND BACTEREMIA History of Any Multi-Drug Resistant Organisms: ESBL Date of last positivie culture/infection: 11/03/18 MDRO Source:: urine - E coli ESBL Past Surgical History: No Surgical Hx Reported Additional Past Surgical History / Comment(s): hx picc line-since removed Past Anesthesia/Blood Transfusion Reactions: No Reported Reaction Additional Past Anesthesia/Blood Transfusion Reaction / Comment(s): resident care aide says not that she knows of Past Psychological History: Schizoaffective Disorder Smoking Status: Never smoker Past Alcohol Use History: None Reported Past Drug Use History: None Reported - Past Family History Father Family Medical History: Cancer Additional Family Medical History / Comment(s): lymphoma Mother Family Medical History: AFIB, Congestive Heart Failure (CHF) Medications and Allergies Home Medications Medication Instructions Recorded Confirmed Type Aspirin 325 mg PO DAILY@17002/13/14 11/26/18 History Multivitamins, Thera [Multivitamin 1 tab PO DAILY@169902/13/14 11/26/18 History (formulary)] OXcarbazepine [Trileptal] 300 mg PO BID@0700,199902/13/14 11/26/18 History Sertraline [Zoloft] 150 mg PO DAILY@69902/13/14 11/26/18 History Verapamil HCl [Verapamil ER] 240 mg PO DAILY@69902/13/14 11/26/18 History Ziprasidone [Geodon] 80 mg PO BID@0700,199902/13/14 11/26/18 History lamoTRIgine [LaMICtal] 200 mg PO TID@0700,1400,199902/13/14 11/26/18 History Cranberry Fruit Extract [Cranberry] 1,000 mg PO DAILY@169901/19/18 11/26/18 History Clotrimazole [Lotrimin AF] 1 applic TOPICAL HS@199911/26/18 11/26/18 History Digoxin [Lanoxin] 125 mcg PO DAILY@0700,199911/26/18 11/26/18 History Docusate [Colace] 100 mg PO DAILY@0711/26/18 11/26/18 History Allergies Allergy/AdvReac Type Severity Reaction Status Date / Time No Known Allergies Allergy Verified 11/26/18 19:21 Physical Exam Vitals: Vital Signs Temp Pulse Resp BP Pulse Ox 11/26/18 19:00 94 14 148/98 11/26/18 18:30 103 H 21 181/98 11/26/18 18:00 114 H 20 157/91 11/26/18 17:30 93 18 146/92 11/26/18 17:23 98.7 F 98 18 146/92 100 Intake and Output 11/26/18 11/26/18 11/26/18 06:59 14:59 22:59 Other: Weight 74.843 kg Constitutional: No acute distress, patient is calm makes good eye contact, says hi, and cooperative Eyes: Anicteric sclerae, moist conjunctiva, no lid-lag Pupils equal round reactive to light ENMT: NC/AT Oropharynx clear, no erythema, or exudates poor dental hygiene Neck: Supple, FROM, no masses, or JVD No carotid bruits No thyromegaly Lungs: Clear to auscultation Clear to percussion Normal respiratory effort, no accessory muscle use Cardiovascular: Heart regular in rate and rhythm, No murmurs, gallops, or rubs No peripheral edema Abdominal: Soft Nontender, no guarding, rebound or rigidity Abdomen moving with respiration Normoactive bowel sounds No hepatomegaly, No splenomegaly No palpable mass No abdominal wall hernia noted Skin: Normal temperature, tone, texture, turgor No induration No subcutaneous nodules No rash, lesions No ulcers Extremities: No digital cyanosis No clubbing Pedal pulses intact and symmetrical Radial pulses intact and symmetrical No calf tenderness Psychiatric: Alert and oriented to person, place not to time Neuro Muscles Strength 4/5 in all 4 extremities Sensation to light touch grossly present throughout Cranial nerves II-XII grossly intact No focal sensory deficits Lymphatics: no palpable cervical or supraclavicular , or inguinal lymph n odes Results CBC & Chem 7: 11/26/18 17:26 11/26/18 17:26 Labs: Abnormal Lab Results - Last 24 Hours (Table) 11/26/18 11/26/18 Range/Units 17:26 17:26 Neutrophils # 8.0 H (1.3-7.7) k/uL Sodium 134 L (137-145) mmol/L Chloride 97 L (98-107) mmol/L BUN 22 H (7-17) mg/dL Creatinine 1.10 H (0.52-1.04) mg/dL Glucose 106 H (74-99) mg/dL Alkaline Phosphatase 166 H (38-126) U/L Assessment and Plan Assessment: 63-year-old female with history of seizures and developmental delays. Admitted as an inpatient with anticipated length of stay more than 48 hours for status epilepticus. Patient had 3 episodes of seizures since the second attack per the family she did not go back to her normal self yet. And she seems to be sligh tly cloudy and confused. However she's getting better at this point. Initial workup in the ED was pretty much unremarkable CT of the brain was negative. Patient has recently had a UTI treated as an outpatient where she finished a course of antibiotics around 1-2 weeks ago where she received Augmentin and possibly Bactrim. Plan: Status epilepticus with history of epilepsy Breakthrough seizures Developmental delays Chronic conditions Paroxysmal A. fib on aspirin Recurrent UTI Plan Patient was loaded with Keppra, continue 1 g twice a day CT of the brain was negative Seizure precautions Fall precautions Neurology consultation Check EEG Check Trileptal level and Lamictal level Continue home meds Surrogate decision-maker: Patient's sister CODE STATUS: Full code DVT prophylaxis: Heparin subcu 3 times a day Discussed with: Patient, ER, Anticipated discharge: 48-[address]: Back to supportive custodial A total of 60 minutes was spent on the care of this complex patient more than 50% of the time was spent in counseling and care coordination.
[2018-11-26 22:20] LABS: Appearance,Urine Clear (Clear); Bacteria,Urine Rare /hpf; Bilirubin,Urine Negative (Negative); Blood,Urine Negative (Negative); Color,Urine Colorless; Glucose,Urine (UA) Negative (Negative); Ketones,Urine Negative (Negative); Leukocyte Esterase,Urine Small (Negative); Nitrite,Urine Negative (Negative); PH, Urine 6.5 (5.0-8.0); Protein,Urine Negative (Negative); RBC,Urine <1 /hpf (0-5); Specific Gravity,Urine 1.005 (1.001-1.035); Squamous Epithelial Cell,Urine 1 /hpf (0-4); Urobilinogen,Urine <2.0 mg/dL (<2.0); WBC,Urine 5 /hpf (0-5)
[2018-11-26] MEDS: HEPARIN SODIUM,PORCINE 5,000 UNIT/ML 1 ML VIAL SQ SCH (23:26)
[2018-11-27 07:40] LABS: Basophils # (A) 0.1 k/uL (0-0.2); Basophils % (A) 1 %; Eosinophils # (A) 0.1 k/uL (0-0.7); Eosinophils % (A) 1 %; HCT 39.9 % (34.0-46.0); HGB 12.5 gm/dL (11.4-16.0); Lymphocytes # (A) 1.4 k/uL (1.0-4.8); Lymphocytes % (A) 15 %; MCH 27.7 pg (25.0-35.0); MCHC 31.4 g/dL (31.0-37.0); MCV 88.3 fL (80.0-100.0); Mean Platelet Volume 6.7; Monocytes # (A) 0.7 k/uL (0-1.0); Monocytes % (A) 7 %; Neutrophils # (A) 6.8 k/uL (1.3-7.7); Neutrophils % (A) 73 %; Platelet Count 276 k/uL (150-450); RBC 4.52 m/uL (3.80-5.40); WBC 9.4 k/uL (3.8-10.6)
[2018-11-27 07:50] LABS: Albumin 4.1 g/dL (3.5-5.0); Calcium 10.1 mg/dL (8.4-10.2); Potassium 4.8 mmol/L (3.5-5.1); Total Bilirubin 0.4 mg/dL (0.2-1.3); Total Protein 7.2 g/dL (6.3-8.2)
[2018-11-27] MEDS: VERAPAMIL SR 240 MG TABLET.ER PO SCH (09:30)
[2018-11-27] MEDS: lamoTRIgine 100 MG TAB PO SCH ×3 (09:30→19:56)
[2018-11-27] MEDS: SERTRALINE 100 MG TAB PO SCH (09:30)
[2018-11-27] MEDS: DIGOXIN 125 MCG TAB PO SCH ×2 (09:31→19:56)
[2018-11-27] MEDS: OXcarbazepine 300 MG TAB PO SCH ×2 (09:31→19:56)
[2018-11-27] MEDS: DOCUSATE 100 MG CAP PO SCH (09:31)
[2018-11-27] MEDS: ZIPRASIDONE 80 MG CAP PO SCH ×2 (09:31→19:56)
[2018-11-27] MEDS: HEPARIN SODIUM,PORCINE 5,000 UNIT/ML 1 ML VIAL SQ SCH ×3 (09:32→23:56)
[2018-11-27] MEDS: levETIRAcetam IV 1,000 MG in SALINE 1 100ML.BAG IVPB SCH ×2 (09:32→19:56)
--- NOTE | 2018-11-27 13:46 | P.PN ---
Subjective Progress Note Date: 11/27/18 Patient seen and examined follow-up, denies any recurrence of her seizures. Continues to receive her Keppra IV. No acute events overnight Objective - Vital Signs Vital signs: Vital Signs Temp 98.9 F 11/27/18 07:24 Pulse 89 11/27/18 07:24 Resp 16 11/27/18 07:24 BP 142/76 11/27/18 07:24 Pulse Ox 95 11/27/18 07:24 Intake & Output 11/26/18 11/27/18 11/27/18 18:59 06:59 18:59 Intake Total 780 Balance 780 Weight 74.843 kg Intake: Oral 780 Other: Voiding Method Bedpan Diaper # Voids 2 - Exam Constitutional: No acute distress, conversant, pleasant Eyes: Anicteric sclerae, moist conjunctiva, no lid-lag, PERRLA ENMT: NC/AT,Oropharynx clear, no erythema, exudates Neck:Supple, FROM, no masses, or JVD, No carotid bruits; No thyromegaly Lungs: Clear to auscultation, Clear to percussion, Normal respiratory effort, no accessory muscle use Cardiovascular: Heart regular in rate and rhythm, No murmurs, gallops, or rubs no peripheral edema Abdominal: Soft Nontender, nom distended, no guarding, no rebound or rigidity, Normoactive bowel sounds No hepatomegaly, No splenomegaly, No palpable mass No abdominal wall hernia noted Skin: Normal temperature, tone, texture, turgor, No induration No subcutaneous nodules, No rash, lesions, No ulcers Extremities:No digital cyanosis No clubbing, Pedal pulses intact and symmetri darrel Radial pulses intact and symmetrical Normal gait and station, No calf tenderness Psychiatric: Alert and oriented to person, place and time, Appropriate affect Intact judgement Neuro: Muscles Strength 5/5 in all 4 extremities, Sensation to light touch grossly present throughout, Cranial nerves II-XII grossly intact. No focal sensory deficits - Labs CBC & Chem 7: 11/27/18 07:04 11/27/18 07:04 Labs: Abnormal Lab Results - Last 24 Hours (Table) 11/26/18 11/26/18 11/26/18 Range/Units 17:26 17:26 20:17 Neutrophils # 8.0 H (1.3-7.7) k/uL Sodium 134 L (137-145) mmol/L Chloride 97 L (98-107) mmol/L BUN 22 H (7-17) mg/dL Creatinine 1.10 H (0.52-1.04) mg/dL Glucose 106 H (74-99) mg/dL Alkaline Phosphatase 166 H (38-126) U/L Ur Leukocyte Esterase Small H (Negative) Urine Bacteria Rare H (None) /hpf 11/27/18 Range/Units 07:04 Neutrophils # (1.3-7.7) k/uL Sodium (137-145) mmol/L Chloride 109 H (98-107) mmol/L BUN 18 H (7-17) mg/dL Creatinine 1.14 H (0.52-1.04) mg/dL Glucose (74-99) mg/dL Alkaline Phosphatase 135 H (38-126) U/L Ur Leukocyte Esterase (Negative) Urine Bacteria (None) /hpf Assessment and Plan (1) Seizure disorder Narrative/Plan: * Neurology has been consult and follow up with any further recommendations EEG has also been ordered * continue seizure precautions, Trileptal and Lamictal level are pending * Patient no longer and status epilepticus Current Visit: No Status: Acute Code(s): G40.909 - EPILEPSY, UNSP, NOT INTRACTABLE, WITHOUT STATUS EPILEPTICUS SNOMED Code(s): 909303768 (2) Paroxysmal A-fib Narrative/Plan: * Currently in sinus rate controlled * Patient continued on verapamil aspirin and digoxin Current Visit: Yes Status: Acute Code(s): I48.0 - PAROXYSMAL ATRIAL FIBRILLATION SNOMED Code(s): 140133001 Plan: Disposition * Awaiting further neurology recommendations * Anticipated discharge 1-2 days
--- NOTE | 2018-11-27 16:49 | P.CNNES ---
History of Present Illness Consult date: 11/27/18 Chief complaint: Seizures History of Present Illness: Patient is a 63-year-old female who has history of seizure disorder since last 60 years. Patient has some developmental delays, lives in a alf. Patient's sister and caregivers were present. However patient walks independently, does not use any device most of the time. She does hold conversation, although often is not very well oriented. Patient has history of grand mal seizures in the past. Patient currently follows up with Dr. Winkler in the office, and is currently taking Lamictal 200 mg 3 times a day and Trileptal 300 mg twice a day. Patient previously has been on Depakote, Vimpat, Keppra, and those were stopped either because of ineffectiveness or side effects. Patient has developed hyponatremia related to higher dose of Trileptal in the past. Patient has been to [facility] and saw Dr. Damari Mason MD in the past also. Patient came to the hospital after she had a seizure while she was with her sister sitting in the passenger seat, when she had seizure-type spell. The seizure was somewhat different, as patient was gasping for air, trying to inhale air although it appeared trachea was constricted. Patient was purple, stopped breathing. This lasted for about 4 minutes and she was incontinent of urine. Patient was post ictal. Patient's sister brought her to the alf and about an hour later she had a similar second spell. Patient was brought to the ER where she had a third spell. Patient was loaded with Keppra 1000 mg, and she has not had any further seizures since then. Patient had computed tomography scan of head, which revealed no acute process. EKG showed sinus rhythm with first-degree AV block. Blood tests shows normal CBC, sodium 134, which has improved to 141. Renal functions with BU and 22, creatinine 1.10. Liver functions normal. Urinalysis showed small leukocyte Estrace. Rare bacteria. Urine drug screen negative. Review of Systems denies headache, diplopia, loss of vision. Denies any numbness tingling focal weakness. Past Medical History Past Medical History: Atrial Fibrillation, Hypertension, Pneumonia, Seizure Disorder Additional Past Medical History / Comment(s): Vertigo, paroxysmal atrial fibri llation, moderate intellectual disability, SEPTEMBER 2016 UTI AND BACTEREMIA History of Any Multi-Drug Resistant Organisms: ESBL Date of last positivie culture/infection: 11/03/18 MDRO Source:: urine - E coli ESBL Past Surgical History: No Surgical Hx Reported Additional Past Surgical History / Comment(s): hx picc line-since removed Past Anesthesia/Blood Transfusion Reactions: No Reported Reaction Additional Past Anesthesia/Blood Transfusion Reaction / Comment(s): home health care respiratory therapist says not that she knows of Past Psychological History: Schizoaffective Disorder Additional Psychological History / Comment(s): OCD, auditory hallucinations, needs reassurance that she is ok. depressive type schizoaffective. Single. Has a sister as her guardian. Does have 24-hour care in her apartment. No animals in the apartment. No travel history Smoking Status: Never smoker Past Alcohol Use History: None Reported Additional Past Alcohol Use History / Comment(s): Patient is a lifelong nonsmoker, no illicit drug use, alcohol use. Patient lives in her own apartment at [facility] has a room mate and 24-hour care. There are no pets in the home. No recent travel.has walker, rollator, cane showr chair if needed Past Drug Use History: None Reported - Past Family History Father Family Medical History: Cancer Additional Family Medical History / Comment(s): lymphoma Mother Family Medical History: AFIB, Congestive Heart Failure (CHF) Medications and Allergies Home Medications Medication Instructions Recorded Confirmed Type Aspirin 325 mg PO DAILY@1700 02/13/14 11/26/18 History Multivitamins, Thera [Multivitamin 1 tab PO DAILY@17002/13/14 11/26/18 History (formulary)] OXcarbazepine [Trileptal] 300 mg PO BID@0700,199902/13/14 11/26/18 History Sertraline [Zoloft] 150 mg PO DAILY@0700 02/13/14 11/26/18 History Verapamil HCl [Verapamil ER] 240 mg PO DAILY@0700 02/13/14 11/26/18 History Ziprasidone [Geodon] 80 mg PO BID@0700,199902/13/14 11/26/18 History lamoTRIgine [LaMICtal] 200 mg PO TID@0700,1399,199902/13/14 11/26/18 History Cranberry Fruit Extract [Cranberry] 1,000 mg PO DAILY@1700 01/19/18 11/26/18 History Clotrimazole [Lotrimin AF] 1 applic TOPICAL HS@199911/26/18 11/26/18 History Digoxin [Lanoxin] 125 mcg PO DAILY@0700,199911/26/18 11/26/18 History Docusate [Colace] 100 mg PO DAILY@0700 11/26/18 11/26/18 History Allergies Allergy/AdvReac Type Severity Reaction Status Date / Time No Known Allergies Allergy Verified 11/26/18 19:21 Physical Examination - Vital Signs Vital Signs: Vital Signs Temp Pulse Pulse Resp BP BP Pulse Ox 11/27/18 07:24 98.9 F 89 16 142/76 95 11/27/18 03:07 97.7 F 86 18 135/58 96 11/26/18 22:30 98.1 F 86 18 138/82 93 L 11/26/18 19:00 94 14 148/98 11/26/18 18:30 103 H 21 181/98 11/26/18 18:00 114 H 20 157/91 11/26/18 17:30 93 18 146/92 11/26/18 17:23 98.7 F 98 18 146/92 100 Intake and Output 11/27/18 11/27/18 11/27/18 06:59 14:59 22:59 Intake Total 1580 Balance 1580 Intake: IV 800 Sodium Chloride 0.9% 1, 800 000 ml @ 100 mls/hr IV . Q10H STA Rx#:[id number] Oral 780 Other: Voiding Method Bedpan Diaper # Voids 2 3 On examination patient is a late middle aged female, in no distress. Patient is very pleasant. Patient keeps quiet, but did participate when spoken. Patient knows her name, could not tell the current month or the year. She could not tell the [place] she is in, but once the caregiver asked if she was in [employer] or [facility], she said she is in [employer]. Speech is clear with no aphasia or dysarthria. Face is symmetric and tongue protrudes the midline. Pupils are round and reacting. Visual carlson appear full. Muscle strength is normal. Reflexes are 2+ and plantars downgoing. Sensations are equal. No bruit or murmur. Results - Laboratory Findings CBC and BMP: 05/27/19 07:04 11/27/18 07:04 Abnormal Lab Findings: Abnormal Labs 11/26/18 11/26/18 11/26/18 17:26 17:26 20:17 Neutrophils # 8.0 H Sodium 134 L Chloride 97 L BUN 22 H Creatinine 1.10 H Glucose 106 H Alkaline Phosphatase 166 H Ur Leukocyte Esterase Small H Urine Bacteria Rare H 11/27/18 07:04 Neutrophils # Sodium Chloride 109 H BUN 18 H Creatinine 1.14 H Glucose Alkaline Phosphatase 135 H Ur Leukocyte Esterase Urine Bacteria Assessment and Plan Assessment: * Long-standing history of seizure disorder, came with breakthrough seizures. Her seizures were slightly atypical, as she was trying to gasp air. Question is if these events were actually seizures. Patient's sister, patient's [id number] and the caregiver all believed that these events were seizures. * Developmental delay * Mild hyponatremia, probably not contributory Plan: * Patient had breakthrough seizures of unclear etiology. She is already on fairly high-dose of Lamictal. Higher dose of Trileptal produced hyponatremia in the past. Lamictal and Trileptal levels have been checked, results pending. * Patient has been started on Keppra. She will be placed on Keppra 500 mg twice a day. I'm concerned about behavioral side effects of Keppra. * Continue same dose of Lamictal 200 mg 3 times a day and Trileptal 300 mg twice a day. * EEG has been ordered, not done yet. * Patient will follow up with her neurologist Dr. García's, and will consider switching to Onfi, or Fycompa, if not tried in the past, as she already has failed most of the medications.
[2018-11-27] MEDS: ASPIRIN 325 MG TAB PO SCH (18:08)
[2018-11-27] MEDS: CLOTRIMAZOLE 1% CREAM 15 GM TUBE TOPICAL SCH (19:56)
[2018-11-28] MEDS: DOCUSATE 100 MG CAP PO SCH (09:13)
[2018-11-28] MEDS: SERTRALINE 100 MG TAB PO SCH (09:14)
[2018-11-28] MEDS: VERAPAMIL SR 240 MG TABLET.ER PO SCH (09:14)
[2018-11-28] MEDS: lamoTRIgine 100 MG TAB PO SCH ×3 (09:14→20:50)
[2018-11-28] MEDS: HEPARIN SODIUM,PORCINE 5,000 UNIT/ML 1 ML VIAL SQ SCH ×2 (09:15→17:13)
[2018-11-28] MEDS: levETIRAcetam IV 1,000 MG in SALINE 1 100ML.BAG IVPB SCH ×2 (09:15→20:49)
[2018-11-28] MEDS: DIGOXIN 125 MCG TAB PO SCH ×2 (09:17→20:50)
[2018-11-28] MEDS: OXcarbazepine 300 MG TAB PO SCH ×2 (09:17→20:50)
[2018-11-28] MEDS: ZIPRASIDONE 80 MG CAP PO SCH ×2 (09:18→20:50)
[2018-11-28] MEDS ORDERED: ACETAMINOPHEN TAB 325 MG TAB PO PRN (13:06)
--- NOTE | 2018-11-28 13:36 | XR ---
EXAMINATION TYPE: XR chest 1V DATE OF EXAM: 11/28/2018 CLINICAL HISTORY: Seizure with low-grade fever. TECHNIQUE: Single portable frontal view of the chest is obtained. COMPARISON: Chest x-ray October 16, 2017. CT abdomen and pelvis June 21, 2018. FINDINGS: There is new retrocardiac opacity silhouetting portions of left hemidiaphragm. Right lung is clear. The cardiac silhouette size is stable and mildly enlarged. The osseous structures are in tact. IMPRESSION: New suspicious retrocardiac acute infiltrate and/or atelectasis.
--- NOTE | 2018-11-28 16:11 | EEG ---
ELECTROENCEPHALOGRAM REPORT ELECTROENCEPHALOGRAM (EEG): DATE OF STUDY: 11/28/2018. PREAMBLE: This is a 63-year-old female with a longstanding history of seizure disorder. She came in with breakthrough seizures. This study is performed to rule out for any epileptiform activity. CURRENT MEDICATIONS: Verapamil, Zoloft, Trileptal, lorazepam, Keppra, Lamictal, digoxin and aspirin. EEG FINDINGS: A routine 21-channel awake digital EEG recording was accomplished utilizing the 10-20 international system with bipolar and referential montages. The background consists of well developed, not very well regulated mixed frequencies of 8-9 Hz alpha with mixed theta and delta activity. Background is posterior-dominant and does not seem to be clearly reactive to eye opening and closing. Photic driving response was not seen. There is near-constant bifrontal temporal, left more than right, focal slowing in this dysrhythmic theta and delta activity. Occasional left temporal sharp waves were seen. The EKG rhythm leads revealed no arrhythmia. Different stages of sleep were not seen. There was also an electrode artifact at 01 seen every 12-13 seconds consisting of a spike, which was artifactual. IMPRESSION: This is an abnormal EEG due to bifrontal temporal slowing, left more than right, suggestive of focal cortical neuronal dysfunction. This may be related to underlying structural abnormality. Occasional sharp waves were seen in the left temporal region suggest focal cortical irritability and tendency for seizures. MMVALENTIN / CHEKON: [id number] / REMY
[2018-11-28] MEDS: ASPIRIN 325 MG TAB PO SCH (17:13)
--- NOTE | 2018-11-28 19:21 | P.PN ---
Subjective Progress Note Date: 11/28/18 Patient offers no neurological complaints. No further seizures. EEG was performed, which revealed bifrontal temporal slowing, left more than right, with intermittent sharp waves in the left temporal region, suggestive of focal cortical neuronal dysfunction, with cortical irritability and tendency for seizures. Objective - Vital Signs Vital signs: Vital Signs Temp 98.8 F 11/28/18 15:30 Pulse 110 H 11/28/18 14:29 Resp 16 11/28/18 14:29 BP 151/79 11/28/18 14:29 Pulse Ox 95 11/28/18 14:29 Intake & Output 11/28/18 11/28/18 11/29/18 06:59 18:59 06:59 Intake Total 2580 400 Balance 2580 400 Intake: Intake, IV Titration 300 Amount Sodium Chloride 0.9% 1, 200 000 ml @ 100 mls/hr IV . Q10H STA Rx#:[id number] levETIRAcetam IV 1,000 mg 100 In Saline 1 100ml.bag @ 400 mls/hr IVPB Q12HR SUSIE Rx#:[id number] Oral 2280 400 Other: Voiding Method Toilet Diaper # Voids 3 4 - Exam Patient very alert and awake. Patient speaks, limited vocabulary but cooperative. Examination unchanged. - Labs CBC & Chem 7: 11/27/18 07:04 11/27/18 07:04 Assessment and Plan Assessment: * Long-standing history of seizure disorder, came with breakthrough seizures. * Developmental delay * Mild hyponatremia, probably not contributory Plan: * Patient had breakthrough seizures of unclear etiology. She is already on fairly high-dose of Lamictal. Higher dose of Trileptal produced hyponatremia in the past. Lamictal and Trileptal levels have been checked, results still pending. * Continue Keppra. She will be placed on Keppra 500 mg twice a day. * Continue same dose of Lamictal 200 mg 3 times a day and Trileptal 300 mg twice a day. * EEG reviewed. * Patient will follow up with her neurologist Dr. Multani, and will consider switching to Onfi, or Fycompa, if not tried in the past, as she already has failed most of the medications as mentioned previously. * Neurologically clear for discharge.
[2018-11-28] MEDS: CLOTRIMAZOLE 1% CREAM 15 GM TUBE TOPICAL SCH (20:50)
[2018-11-29] MEDS: HEPARIN SODIUM,PORCINE 5,000 UNIT/ML 1 ML VIAL SQ SCH ×2 (00:23→08:27)
[2018-11-29 07:21] VITALS: BP 121/76; RESP 16; TEMP 97.5
[2018-11-29] MEDS: DOCUSATE 100 MG CAP PO SCH (08:27)
[2018-11-29] MEDS: lamoTRIgine 100 MG TAB PO SCH (08:28)
[2018-11-29] MEDS: SERTRALINE 100 MG TAB PO SCH (08:28)
[2018-11-29] MEDS: VERAPAMIL SR 240 MG TABLET.ER PO SCH (08:28)
[2018-11-29] MEDS: DIGOXIN 125 MCG TAB PO SCH (08:29)
[2018-11-29] MEDS: ZIPRASIDONE 80 MG CAP PO SCH (08:30)
[2018-11-29] MEDS: OXcarbazepine 300 MG TAB PO SCH (08:30)
[2018-11-29] MEDS: levETIRAcetam IV 1,000 MG in SALINE 1 100ML.BAG IVPB SCH (08:36)
--- NOTE | 2018-11-29 10:01 | P.PN ---
Subjective Progress Note Date: 11/29/18 Patient seen and examined follow-up, denies any recurrence of her seizures. Continues to receive her Keppra, No acute events overnight. Family reporting that patient is now at her baseline, awaiting follow up on EEG results Objective - Vital Signs Vital signs: Vital Signs Temp 97.5 F L 11/29/18 07:00 Pulse 87 11/29/18 07:00 Resp 16 11/29/18 07:00 BP 121/76 11/29/18 07:00 Pulse Ox 97 11/29/18 07:00 Intake & Output 11/28/18 11/29/18 11/29/18 18:59 06:59 18:59 Intake Total 400 100 Balance 400 100 Intake: Intake, IV Titration 100 Amount levETIRAcetam IV 1,000 mg 100 In Saline 1 100ml.bag @ 400 mls/hr IVPB Q12HR [facility] Rx#:[id number] Oral 400 Other: Voiding Method Toilet Diaper # Voids 4 1 - Exam Constitutional: No acute distress, conversant, pleasant Eyes: Anicteric sclerae, moist conjunctiva, no lid-lag, PERRLA ENMT: NC/AT,Oropharynx clear, no erythema, exudates Neck:Supple, FROM, no masses, or JVD, No carotid bruits; No thyromegaly Lungs: Clear to auscultation, Clear to percussion, Normal respiratory effort, no accessory muscle use Cardiovascular: Heart regular in rate and rhythm, No murmurs, gallops, or rubs no peripheral edema Abdominal: Soft Nontender, nom distended, no guarding, no rebound or rigidity, Normoactive bowel sounds No hepatomegaly, No splenomegaly, No palpable mass No abdominal wall hernia noted Skin: Normal temperature, tone, texture, turgor, No induration No subcutaneous nodules, No rash, lesions, No ulcers Extremities:No digital cyanosis No clubbing, Pedal pulses intact and symmetrical Radial pulses intact and symmetrical Normal gait and station, No calf tenderness Psychiatric: Alert and oriented to person, place, noted developmental delay Neuro: Muscles Strength 5/5 in all 4 extremities, Sensation to light touch grossly present throughout, Cranial nerves II-XII grossly intact. No focal sensory deficits - Labs CBC & Chem 7: 11/27/18 07:04 11/27/18 07:04 Assessment and Plan (1) Seizure disorder Narrative/Plan: * Neurology has been consult and follow up with any further recommendations EEG and results are pending * continue seizure precautions, Trileptal and Lamictal level are pending * Patient no longer and status epilepticus Current Visit: No Status: Acute Code(s): G40.909 - EPILEPSY, UNSP, NOT INTRACTABLE, WITHOUT STATUS EPILEPTICUS SNOMED Code(s): 100400518 (2) Paroxysmal A-fib Narrative/Plan: * Currently in sinus rate controlled * Patient continued on verapamil aspirin and digoxin Current Visit: Yes Status: Acute Code(s): I48.0 - PAROXYSMAL ATRIAL FIBRILLATION SNOMED Code(s): 031976850 Plan: Disposition * Awaiting further neurology recommendations * Anticipated discharge 1-2 days
--- NOTE | 2018-11-29 10:13 | P.DS ---
Providers Date of admission: 11/26/18 20:25 Expected date of discharge: 11/29/18 Attending physician: Lexis Kaufman MD Consults: 11/26/18 20:25 Consult Physician Routine Consulting Provider: Sandy Valdez Consult Reason/Comments: sz Do you want consulting provider notified?: Yes Primary care physician: Oral Hernandez - Discharge Diagnosis(es) (1) Seizure disorder Current Visit: No Status: Acute (2) History of developmental delay Current Visit: Yes Status: Acute (3) Hyponatremia Current Visit: No Status: Acute (4) Paroxysmal A-fib Current Visit: Yes Status: Acute (5) Breakthrough seizure Current Visit: Yes Status: Acute Hospital Course: The patient is a 63-year-old female with a history of developmental delay that was admitted due to suspicion for status epilepticus she patient had S history of her disorder and was found to have breakthrough seizures, the patient had recently been treated for a UTI about 1-2 weeks prior and received doses of Augmentin possibly Bactrim which could've altered her seizure threshold. The patient was noted to be mildly hyponatremic with a sodium of 134, presumably secondary to her underlying seizure medications as she was taking high doses of Trileptal And Lamictal, levels for both these medications are sent hours pending, CT of the head was negative for any acute intracranial pathology. The patient was loaded with IV Keppra and placed on seizure precautions, EEG was ordered by neurology that was consistent with bifrontal temporal slowing, left greater than right with sharp intermittent waves in the left temporal region suggestive of focal cortical neuronal dysfunction with cortical irritability and tendency for seizures. Patient remained seizure-free during hospitalization was transitioned to oral Keppra 500 mg PO BID by time of discharge. She was discharged to doctor's departments with 24-hour care in stable condition and instructed to follow up with her PCP and neurologist Dr. García. This discharge process took approximately 35 minutes Focused exam: Neuro: Cranial nerves II-12 grossly intact, no seizure activity Patient Condition at Discharge: Fair Plan - Discharge Summary Discharge Rx Participant: No New Discharge Prescriptions: No Action Verapamil HCl [Verapamil ER] 240 mg PO DAILY@0700 Aspirin 325 mg PO DAILY@1700 Ziprasidone [Geodon] 80 mg PO BID@0700,2000 Sertraline [Zoloft] 150 mg PO DAILY@0700 lamoTRIgine [LaMICtal] 200 mg PO TID@0700,1399,1999 OXcarbazepine [Trileptal] 300 mg PO BID@699,1999 Multivitamins, Thera [Multivitamin (formulary)] 1 tab PO DAILY@1700 Cranberry Fruit Extract [Cranberry] 1,000 mg PO DAILY@170 Docusate [Colace] 100 mg PO DAILY@0700 Digoxin [Lanoxin] 125 mcg PO DAILY@ Clotrimazole [Lotrimin AF] 1 applic TOPICAL HS@1999 Discharge Medication List Aspirin 325 mg PO DAILY@169902/13/14 [History] Multivitamins, Thera [Multivitamin (formulary)] 1 tab PO DAILY@169902/13/14 [History] OXcarbazepine [Trileptal] 300 mg PO BID@699,199902/13/14 [History] Sertraline [Zoloft] 150 mg PO DAILY@0702/13/14 [History] Verapamil HCl [Verapamil ER] 240 mg PO DAILY@69902/13/14 [History] Ziprasidone [Geodon] 80 mg PO BID@699,199902/13/14 [History] lamoTRIgine [LaMICtal] 200 mg PO TID@0700,1399,199902/13/14 [History] Cranberry Fruit Extract [Cranberry] 1,000 mg PO DAILY@169901/19/18 [History] Clotrimazole [Lotrimin AF] 1 applic TOPICAL HS@199911/26/18 [History] Digoxin [Lanoxin] 125 mcg PO DAILY@07,199911/26/18 [History] Docusate [Colace] 100 mg PO DAILY@69911/26/18 [History] Follow up Appointment(s)/Referral(s): Oral Hernandez MD [Primary Care Provider] - 1-2 days Trevor García MD [STAFF PHYSICIAN] - 1 Week Patient Instructions/Handouts: Recurrent Seizures in Adults (ED)
[2018-11-29 11:22] VITALS: PULSE 76
== END 2018-11-29 13:35 | disposition home or self-care (01) | DRG 101 ==
LOC: EC 17:17 → 4SSUR 20:25
PROVIDERS: ADMIT Family Medicine; ATTEND Family Medicine
DX: G40.909 Epilepsy, unspecified, not intractable, without status epilepticus (principal); E87.1 Hypo-osmolality and hyponatremia; I10 Essential (primary) hypertension; F25.9 Schizoaffective disorder, unspecified; F71 Moderate intellectual disabilities; F42.9 Obsessive-compulsive disorder, unspecified; R62.50 Unspecified lack of expected normal physiological development in childhood; I44.0 Atrioventricular block, first degree; I48.0 Paroxysmal atrial fibrillation; Z79.82 Long term (current) use of aspirin; Z79.899 Other long term (current) drug therapy; Z80.7 Family history of other malignant neoplasms of lymphoid, hematopoietic and related tissues; Z82.49 Family history of ischemic heart disease and other diseases of the circulatory system; Z87.01 Personal history of pneumonia (recurrent); Z87.440 Personal history of urinary (tract) infections; Z86.19 Personal history of other infectious and parasitic diseases
CPT/HCPCS: 36415; 70450; 71045; 80053; 80162; 80175; 80183; 80306; 80329; 81001; 83520; 85025; 93005; 95816; 96361; 96365; 96375; 99285

== ENCOUNTER → 2018-12-16 | Outpatient (CLI) | payer MEDICARE, OTHER ==
[2018-12-18 08:32] LABS: Lamotrigine (Lamictal) 6.8 ug/mL (2.0-15.0)
== END | disposition home or self-care (01) ==
LOC: LABWHC1 08:26
PROVIDERS: ATTEND Psychiatry & Neurology Neurology
DX: G40.209 Localization-related (focal) (partial) symptomatic epilepsy and epileptic syndromes with complex partial seizures, not intractable, without status epilepticus (principal)
CPT/HCPCS: 36415; 80175; 80183; 84295

== ENCOUNTER → 2018-12-18 | Outpatient (CLI) | payer MEDICARE, OTHER ==
--- NOTE | 2018-12-18 14:05 | MR ---
EXAMINATION TYPE: MR brain wo con DATE OF EXAM: 12/18/2018 COMPARISON: MRI brain October 26, 2012. CT brain November 26, 2018 HISTORY: Partial epilepsy with impairment TECHNIQUE: Multiplanar, multisequence imaging of the brain and brainstem is performed without IV cont rast. FINDINGS: Diffusion weighted images demonstrate no evidence of a recent infarct or other diffusion abnormality. There is no worrisome extra-axial fluid collection. The ventricular system and cisternal spaces are normal in size and appearance. The brain volume is age appropriate. Few scattered small foci of T2 h yperintensity are seen scattered throughout the white matter bilaterally. Approximately 20 scattered lesions are seen. T2 coronal weighted images show hippocampal gyri to appear symmetric and felt withi n normal limits. Midline structures demonstrate normal morphology. The craniocervical junction appears within normal limits. Normal vascular flow voids are present. There is 1.6 cm mucous retention cyst or polyp inferi or left maxillary sinus axial image 4 otherwise paranasal sinuses remain clear. Nasal septum remains slightly deviated to left of midline. Globes are intact bilaterally. IMPRESSION: Mild to borderline moderate nonspecific white matter changes presumed on basis of product of chronic small vessel ischemic change in patient of this age with some progression from 2013 MRI.
== END | disposition home or self-care (01) ==
LOC: RADMRIMAIN 13:14
PROVIDERS: ATTEND Psychiatry & Neurology Neurology
DX: R90.89 Other abnormal findings on diagnostic imaging of central nervous system (principal); G40.209 Localization-related (focal) (partial) symptomatic epilepsy and epileptic syndromes with complex partial seizures, not intractable, without status epilepticus
CPT/HCPCS: 70551

== ENCOUNTER → 2019-02-22 | Outpatient (CLI) | payer MEDICARE, OTHER ==
--- NOTE | 2019-02-23 17:35 | BD ---
EXAMINATION TYPE: Axial Bone Density DATE OF EXAM: 02/22/2019 COMPARISON: NONE CLINICAL HISTORY: Height: 63 inches Weight: 141 pounds FRAX RISK QUESTIONS: Alcohol (3 or more units per day): no Family History (Parent hip fracture): yes, mother Glucocorticoids (More than 3mos): no (Ex: prednisone, prednisolone, methylprednisolone, dexamethasone, and hydrocortisone). History of Fracture in Adulthood: no Secondary Osteoporosis: 1. Type 1 Diabetes: no 2. Hyperthyroidism: no 3. Menopause before 45: no 4. Malnutrition: no 5. Chronic liver disease: no Rheumatoid Arthritis: no Current Tobacco Use: no RISK FACTORS HISTORY OF: Spine Fracture: yes, old mild compression fx L1(see 2018 Lumbar Spine report) When: unknown Family History of Osteoporosis: yes, mother Active: yes Diet low in dairy products/other sources of calcium: no Postmenopausal woman: yes Take estrogen and/or progesterone medications: no Lost more than 2 inches in height since high school: unsure, may have been about 65 inches when young er Frequent falls: "fall risk" because of seizures Poor Health: no Hyperparathyroidism: no Adrenal Insufficiency: no MEDICATIONS: Prednisone or other steroids: no Thyroid Medications: no Osteoporosis Medications: no Additional Medications: seizure meds Additional History: EXAM MEASUREMENTS: Bone mineral densitometry was performed using the [employer] System. Bone mineral density as measured about the Lumbar spine is: ----- L1-L4(G/cm2): 1.694 T Score Values are as follows: ----- L2: 3.9 ----- L3: 4.9 ----- L4: 4.7 ----- L1-L4: 4.3 Bone mineral density BASELINE Bone mineral density about the R hip (g/cm2): 0.909 Bone mineral density about the L hip (g/cm2): 0.913 T Score values are as follows: -----R Neck: -0.9 -----L Neck: -0.9 -----R Total: 0.5 -----L Total: 0.6 Bone mineral density BASELINE IMPRESSION: Normal (Values between +1 and -1 indicate normal bone mass). Consider repeating this study in 5 year s or sooner if there is some new clinical indication. NOTE: T-SCORE=SD OF THE YOUNG ADULT MEAN.
== END | disposition home or self-care (01) ==
LOC: RADBDWWP 08:48
PROVIDERS: ATTEND Internal Medicine
DX: Z78.0 Asymptomatic menopausal state (principal)
CPT/HCPCS: 77080

== ENCOUNTER → 2019-02-22 | Outpatient (CLI) | payer MEDICARE, OTHER ==
[2019-02-22 08:55] LABS: HCT 38.7 % (34.0-46.0); HGB 12.6 gm/dL (11.4-16.0); MCH 28.5 pg (25.0-35.0); MCHC 32.5 g/dL (31.0-37.0); MCV 87.7 fL (80.0-100.0); Mean Platelet Volume 6.2; Platelet Count 389 k/uL (150-450); RBC 4.41 m/uL (3.80-5.40); RDW 13.5 % (11.5-15.5); WBC 10.4 k/uL (3.8-10.6)
[2019-02-22 17:42] LABS: African American GFR (CKD) 46.9 (60.0-200.0); Albumin 4.2 g/dL (3.80-4.90); Albumin/Globulin Ratio 1.45 (1.60-3.17); Calcium 10.3 mg/dL (8.7-10.3); Globulin 2.9 g/dL (1.6-3.3); LDL Cholesterol,Calculated 43.4 mg/dL (0.0-131.0); Potassium 5.9 mmol/L (3.5-5.5); Total Bilirubin 0.2 mg/dL (0.2-1.2); Total Protein 7.1 g/dL (6.2-8.2); VLDL Calculation 26.6 mg/dL (5.00-40.00)
[2019-02-23 13:29] LABS: Lamotrigine (Lamictal) 6.2 ug/mL (2.0-15.0)
== END | disposition home or self-care (01) ==
LOC: LABWHC1 08:28
PROVIDERS: ATTEND Internal Medicine
DX: I12.9 Hypertensive chronic kidney disease with stage 1 through stage 4 chronic kidney disease, or unspecified chronic kidney disease (principal); E78.5 Hyperlipidemia, unspecified; G40.909 Epilepsy, unspecified, not intractable, without status epilepticus; N18.3 Chronic kidney disease, stage 3 (moderate); G40.209 Localization-related (focal) (partial) symptomatic epilepsy and epileptic syndromes with complex partial seizures, not intractable, without status epilepticus; Z79.899 Other long term (current) drug therapy
CPT/HCPCS: 36415; 80053; 80061; 80175; 80183; 83970; 85027

== ENCOUNTER → 2019-08-31 | Outpatient (CLI) | payer MEDICARE, OTHER ==
--- NOTE | 2019-09-01 17:24 | US ---
EXAMINATION TYPE: US kidneys/renal and bladder DATE OF EXAM: 08/31/2019 COMPARISON: NONE CLINICAL HISTORY: N18.4 chronic kidney disease. EXAM MEASUREMENTS: Right Kidney: 8.4 x 3.7 x 4.5 cm Left Kidney: 8.9 x 3.7 x 3.1 cm Right Kidney: innumerable calcifications, cyst measuring 0.9 x 1.0 x 1.1cm Left Kidney:innumerable calcifications, multiple cysts largest measuring 1.2 x 1.4 x 1.5cm Bladder: wnl Incidental finding of probable left ovarian cyst measuring 3.5 x 2.6 x 3.5 cm IMPRESSION: 1. Bilateral renal calcifications without hydronephrosis. 2. Cysts present bilaterally. 3. Left ovarian cyst measuring 3.5 x 2.6 x 3.5 cm. Follow-up pelvic ultrasound in 6 weeks is recommen ded.
== END | disposition home or self-care (01) ==
LOC: RADUSWWP 15:36
PROVIDERS: ATTEND Internal Medicine
DX: N28.1 Cyst of kidney, acquired (principal); N28.89 Other specified disorders of kidney and ureter; N18.4 Chronic kidney disease, stage 4 (severe)
CPT/HCPCS: 76770

== ENCOUNTER 2020-01-20 17:42 | Inpatient (IN) | payer MEDICARE, OTHER ==
--- NOTE | 2020-01-20 18:03 | ED ---
Abdominal Pain HPI - General Chief Complaint: Abdominal Pain Stated Complaint: abd pain Time Seen by Provider: 01/20/20 17:49 Source: patient Mode of arrival: ambulatory Limitations: no limitations - History of Present Illness Initial Comments: Patient is a 64-year-old female presenting to the emergency department with a chief complaint of abdominal pain. Patient has a developmental delay. Caregiver present to answer additional questions. Patient complaining of right lower quadrant abdominal pain over the last several days. Caregiver states the patient has occasional episodes of constipation but she has been having normal bowel movements today. Patient denies any nausea or vomiting. Caregiver denies any fevers at home. States the patient is otherwise any fine until today. No previous abdominal surgical history. Patient denies any urinary symptoms. Denies hematuria, hematochezia or melena. - Related Data Home Medications Medication Instructions Recorded Confirmed Aspirin 325 mg PO DAILY@1700 02/13/14 11/26/18 Multivitamins, Thera [Multivitamin 1 tab PO DAILY@169902/13/14 11/26/18 (formulary)] OXcarbazepine [Trileptal] 300 mg PO BID@0700,199902/13/14 11/26/18 Sertraline [Zoloft] 150 mg PO DAILY@69902/13/14 11/26/18 Verapamil HCl [Verapamil ER] 240 mg PO DAILY@0702/13/14 11/26/18 Ziprasidone [Geodon] 80 mg PO BID@0700,199902/13/14 11/26/18 lamoTRIgine [LaMICtal] 200 mg PO TID@0700,1400,199902/13/14 11/26/18 Cranberry Fruit Extract [Cranberry] 1,000 mg PO DAILY@1700 01/19/18 11/26/18 Clotrimazole [Lotrimin AF] 1 applic TOPICAL HS@199911/26/18 11/26/18 Digoxin [Lanoxin] 125 mcg PO DAILY@0700,199911/26/18 11/26/18 Docusate [Colace] 100 mg PO DAILY@0711/26/18 11/26/18 Previous Rx's Medication Instructions Recorded levETIRAcetam [Keppra] 500 mg PO BID #60 tab 11/29/18 Allergies Allergy/AdvReac Type Severity Reaction Status Date / Time No Known Allergies Allergy Verified 01/20/20 17:48 Review of Systems ROS Statement: Those systems with pertinent positive or pertinent negative responses have been documented in the HPI. ROS Other: All systems not noted in ROS Statement are negative. Past Medical History Past Medical History: Atrial Fibrillation, Hypertension, Pneumonia, Seizure Disorder Additional Past Medical History / Comment(s): Vertigo, paroxysmal atrial fibrillation, moderate intellectual disability, SEPTEMBER 2016 UTI AND BACTEREMIA History of Any Multi-Drug Resistant Organisms: ESBL Date of last positivie culture/infection: 11/03/18 MDRO Source:: urine - E coli ESBL Past Surgical History: No Surgical Hx Reported Additional Past Surgical History / Comment(s): hx picc line-since removed Past Anesthesia/Blood Transfusion Reactions: No Reported Reaction Additional Past Anesthesia/Blood Transfusion Reaction / Comment(s): out of school hours care worker says not that she knows of Past Psychological History: Schizoaffective Disorder Past Alcohol Use History: None Reported Past Drug Use History: None Reported - Past Family History Father Family Medical History: Cancer Additional Family Medical History / Comment(s): lymphoma Mother Family Medical History: AFIB, Congestive Heart Failure (CHF) General Exam Limitations: no limitations Course Vital Signs 01/20/20 17:44 Temperature 97.3 F L Pulse Rate 108 H Respiratory 18 Rate Blood Pressure 153/83 O2 Sat by Pulse 97 Oximetry Medical Decision Making - Medical Decision Making Patient is 64-year-old female with history of the palm of the lower lip presenting to emergency Department with a chief complaint of abdominal pain. On exam patient has right lower quadrant right upper quadrant abdominal pain. CBC reveals leukocytosis of [address] of abdomen and pelvis reveals acute cholecystitis with a 9 mm stone in the cystic duct. Patient started on vancomycin and Zosyn. Patient given fluids, analgesia. Nothing by mouth. Patient will be admitted for further medical management. Case discussed with Dr. Lacy. Admitting physician is - Lab Data Result diagrams: 01/20/20 18:00 01/20/20 18:00 Lab Results 01/20/20 01/20/20 Range/Units 18:00 18:00 WBC 25.8 H (3.8-10.6) k/uL RBC 4.47 (3.80-5.40) m/uL Hgb 11.9 (11.4-16.0) gm/dL Hct 38.6 (34.0-46.0) % MCV 86.4 (80.0-100.0) fL MCH 26.7 (25.0-35.0) pg MCHC 30.9 L (31.0-37.0) g/dL RDW 14.7 (11.5-15.5) % Plt Count 374 (150-450) k/uL Neutrophils % 87 % Lymphocytes % 4 % Monocytes % 5 % Eosinophils % 0 % Basophils % 0 % Neutrophils # 22.5 H (1.3-7.7) k/uL Lymphocytes # 0.9 L (1.0-4.8) k/uL Monocytes # 1.4 H (0-1.0) k/uL Eosinophils # 0.1 (0-0.7) k/uL Basophils # 0.1 (0-0.2) k/uL Sodium 133 L (137-145) mmol/L Potassium 4.6 (3.5-5.1) mmol/L Chloride 101 (98-107) mmol/L Carbon Dioxide 24 (22-30) mmol/L Anion Gap 8 mmol/L BUN 18 H (7-17) mg/dL Creatinine 1.48 H (0.52-1.04) mg/dL Est GFR (CKD-EPI)AfAm 44 (>60 ml/min/1.73 sqM) Est GFR (CKD-EPI)NonAf 38 (>60 ml/min/1.73 sqM) Glucose 155 H (74-99) mg/dL Calcium 10.2 (8.4-10.2) mg/dL Total Bilirubin 0.3 (0.2-1.3) mg/dL AST 21 (14-36) U/L ALT 19 (4-34) U/L Alkaline Phosphatase 129 H (38-126) U/L Total Protein 7.6 (6.3-8.2) g/dL Albumin 4.1 (3.5-5.0) g/dL Lipase 97 (23-300) U/L Disposition Clinical Impression: Abdominal pain, Cholecystitis, acute Disposition: ADMITTED IP TO THIS [facility] Condition: Stable Instructions (If sedation given, give patient instructions): Abdominal Pain (ED) Additional Instructions: She will be admitted Is patient prescribed a controlled substance at d/c from ED?: No Referrals: Oral Hernandez MD [Primary Care Provider] - 1-2 days Time of Disposition: 19:03
[2020-01-20 18:16] LABS: Basophils # (A) 0.1 k/uL (0-0.2); Basophils % (A) 0 %; Eosinophils # (A) 0.1 k/uL (0-0.7); Eosinophils % (A) 0 %; HCT 38.6 % (34.0-46.0); HGB 11.9 gm/dL (11.4-16.0); Lymphocytes # (A) 0.9 k/uL (1.0-4.8); Lymphocytes % (A) 4 %; MCH 26.7 pg (25.0-35.0); MCHC 30.9 g/dL (31.0-37.0); MCV 86.4 fL (80.0-100.0); Mean Platelet Volume 6.3; Monocytes # (A) 1.4 k/uL (0-1.0); Monocytes % (A) 5 %; Neutrophils # (A) 22.5 k/uL (1.3-7.7); Neutrophils % (A) 87 %; Platelet Count 374 k/uL (150-450); RBC 4.47 m/uL (3.80-5.40); RDW 14.7 % (11.5-15.5); WBC 25.8 k/uL (3.8-10.6)
[2020-01-20] MEDS ORDERED: SODIUM CHLORIDE 0.9% 1,000 ML IV STA (18:18)
[2020-01-20 18:26] LABS: Albumin 4.1 g/dL (3.5-5.0); Calcium 10.2 mg/dL (8.4-10.2); Potassium 4.6 mmol/L (3.5-5.1); Total Bilirubin 0.3 mg/dL (0.2-1.3); Total Protein 7.6 g/dL (6.3-8.2)
[2020-01-20] MEDS ORDERED: cefTRIAXone IN SWFI 1,000 MG/10 ML SYRINGE IVP STA (18:28)
[2020-01-20] MEDS ORDERED: LACTULOSE 20 GM/30 ML CUP PO ONE (18:35)
--- NOTE | 2020-01-20 18:48 | CT ---
EXAMINATION TYPE: CT abdomen pelvis w con DATE OF EXAM: 01/20/2020 COMPARISON: 06/21/2018 HISTORY: 64-year-old female RLQ pain TECHNIQUE: Contiguous axial scanning of the abdomen and pelvis following administration of 100 ml Iso felton 300 IV contrast. Delayed images through the kidneys and coronal/sagittal reconstructions perform ed. CT DLP: 811.8 mGycm Automated exposure control for dose reduction was used. FINDINGS: Mild pectus excavatum. Heart borderline enlarged. The extreme liver dome is cut off on this exam horace ot excluded. Strandy atelectasis at the lung bases. No focal liver lesion or biliary ductal dilatation. Portal venous system is patent. Trace perihepatic ascites. Hydropic gallbladder with wall thickening and a 9 mm calculus in the cystic duct region. There is per icholecystic inflammatory fat stranding and mild tracking edema. Adrenal glands, kidneys, and pancreas within normal limits. Innumerable small bilateral renal cysts redemonstrated. Possible autosomal recessive polycystic kidne y disease. Correlate for a known diagnosis. No dilated small bowel, free fluid, or free air. No mesenteric or retroperitoneal lymphadenopathy. Short portion of a normal air-filled appendix is seen on axial image 62. Moderate stool burden. No pericolic inflammatory change. Mild proximal to mid sigmoid diverticulosis. Bladder distention. Uterus anteverted. Moderate right cul-de-sac free fluid. Both ovaries are visuali zed. 3.5 cm cystic lesion of the left adnexa. Pelvic phlebolith. Bones: Moderate degenerative change of both hips. Moderate to advanced degenerative disc disease mid to lower lumbar spine with hypertrophic facet arthropathy. IMPRESSION: 1. FINDINGS COMPATIBLE WITH ACUTE CHOLECYSTITIS WITH HYDROPIC AND THICK-WALLED GALLBLADDER WITH SURRO UNDING INFLAMMATION AND A 9 MM CALCULUS IN THE CYSTIC DUCT REGION. 2. TRACE PERIHEPATIC ASCITES AND MODERATE CUL-DE-SAC FREE FLUID LIKELY REACTIVE TO THE GALLBLADDER IN FLAMMATION. 3. A 3.5 CM CYSTIC LESION OF THE LEFT OVARY. STABLE FROM 06/21/2018. ANNUAL ULTRASOUND SURVEILLANCE R ECOMMENDED IN A POSTMENOPAUSAL FEMALE. 4. MILD PROXIMAL TO MID SIGMOID DIVERTICULOSIS WITHOUT ACUTE DIVERTICULITIS.
[2020-01-20] MEDS ORDERED: MORPHINE SULFATE 4 MG/ML SYRINGE IVP STA (18:54)
[2020-01-20] MEDS ORDERED: VANCOMYCIN IV PER PHARMACY 1 EACH MISC MISCELLANE PRN (19:00)
[2020-01-20] MEDS ORDERED: PIPERACILLIN-TAZOBACTAM 3.375 GM in SODIUM CHLORIDE 0.9% 100 ML IVPB STA (19:00)
[2020-01-20 19:03] LABS: Appearance,Urine Cloudy (Clear); Bacteria,Urine Occasional /hpf; Bilirubin,Urine Negative (Negative); Blood,Urine Trace (Negative); Color,Urine Light Yellow; Glucose,Urine (UA) Negative (Negative); Ketones,Urine Negative (Negative); Leukocyte Esterase,Urine Large (Negative); Mucus,Urine Rare /hpf; Nitrite,Urine Positive (Negative); Protein,Urine Trace (Negative); RBC,Urine 2 /hpf (0-5); Specific Gravity,Urine 1.009 (1.001-1.035); Squamous Epithelial Cell,Urine <1 /hpf (0-4); Urobilinogen,Urine <2.0 mg/dL (<2.0); WBC,Urine 58 /hpf (0-5)
[2020-01-20] MEDS ORDERED: MORPHINE SULFATE 4 MG/ML SYRINGE IV PRN (19:04)
[2020-01-20] MEDS ORDERED: HYDROmorphone 1 MG/ML 1 ML SYRINGE IVP PRN (19:04)
[2020-01-20] MEDS ORDERED: NALOXONE 0.4 MG/ML 1 ML VIAL IV PRN (19:04)
[2020-01-20] MEDS ORDERED: ONDANSETRON 4 MG/2 ML VIAL IVP PRN (19:04)
[2020-01-20] MEDS ORDERED: IBUPROFEN 400 MG TAB PO PRN (19:04)
[2020-01-20] MEDS ORDERED: LORazepam 2 MG/ML INJ IV PRN (19:04)
[2020-01-20] MEDS ORDERED: ACETAMINOPHEN TAB 325 MG TAB PO PRN (19:04)
[2020-01-20] MEDS ORDERED: VANCOMYCIN 1,250 MG in SODIUM CHLORIDE 0.9% 250 ML IVPB STA (19:14)
[2020-01-21] MEDS: SODIUM CHLORIDE 0.9% 1,000 ML IV SCH ×3 (01:23→22:33)
[2020-01-21] MEDS: HYDROmorphone 0.5 MG/0.5 ML SYRINGE IVP PRN ×3 (02:49→20:02)
[2020-01-21] MEDS: DOCUSATE 100 MG CAP PO SCH (09:44)
[2020-01-21] MEDS: DIGOXIN 125 MCG TAB PO SCH ×2 (09:44→20:01)
[2020-01-21] MEDS: SERTRALINE 50 MG TAB PO SCH (09:45)
[2020-01-21] MEDS: lamoTRIgine 100 MG TAB PO SCH ×3 (09:45→20:01)
[2020-01-21] MEDS: OXcarbazepine 300 MG TAB PO SCH ×2 (09:45→20:01)
[2020-01-21] MEDS: levETIRAcetam 500 MG TAB PO SCH ×2 (09:45→20:01)
[2020-01-21] MEDS: VERAPAMIL SR 240 MG TABLET.ER PO SCH (09:46)
[2020-01-21] MEDS: ZIPRASIDONE 80 MG CAP PO SCH ×2 (09:46→20:02)
--- NOTE | 2020-01-21 10:17 | P.GSHP ---
History of Present Illness H&P Date: 01/21/20 Chief Complaint: Right upper quadrant pain This a 64-year-old female who is admitted through the emergency room last night with complaints of right upper quadrant pain. Her CAT scan shows evidence of a hydropic gallbladder with thickened gallbladder wall suggestive acute ch olecystitis Past Medical History Past Medical History: Atrial Fibrillation, Hypertension, Pneumonia, Seizure Disorder Additional Past Medical History / Comment(s): Vertigo, paroxysmal atrial fibrillation, moderate intellectual disability, SEPTEMBER 2016 UTI AND BACTEREMIA History of Any Multi-Drug Resistant Organisms: ESBL Date of last positivie culture/infection: 11/03/18 MDRO Source:: urine - E coli ESBL Past Surgical History: No Surgical Hx Reported Additional Past Surgical History / Comment(s): hx picc line-since removed Past Anesthesia/Blood Transfusion Reactions: No Reported Reaction Additional Past Anesthesia/Blood Transfusion Reaction / Comment(s): care center manager says not that she knows of Past Psychological History: Anxiety, Schizoaffective Disorder Additional Psychological History / Comment(s): OCD, auditory hallucinations, needs reassurance that she is ok. depressive type schizoaffective. Single. Has a sister as her guardian. Does have 24-hour care in her apartment. No animals in the apartment. No travel history Smoking Status: Never smoker Past Alcohol Use History: None Reported Additional Past Alcohol Use History / Comment(s): Patient is a lifelong nonsmoker, no illicit drug use, alcohol use. Patient lives in her own apartment at [facility] has a room mate and 24-hour care. There are no pets in the home. No recent travel.has walker, rollator, cane showr chair if needed Past Drug Use History: None Reported - Past Family History Father Family Medical History: Cancer Additional Family Medical History / Comment(s): lymphoma Mother Family Medical History: AFIB, Congestive Heart Failure (CHF) Medications and Allergies Home Medications Medication Instructions Recorded Confirmed Type Aspirin 325 mg PO DAILY@1700 02/13/14 01/20/20 History OXcarbazepine [Trileptal] 300 mg PO BID@0700,199902/13/14 01/20/20 History Sertraline [Zoloft] 150 mg PO DAILY@69902/13/14 01/20/20 History Verapamil HCl [Verapamil ER] 240 mg PO DAILY@0700 02/13/14 01/20/20 History Ziprasidone [Geodon] 80 mg PO BID@07,199902/13/14 01/20/20 History lamoTRIgine [LaMICtal] 200 mg PO TID@07,1399,199902/13/14 01/20/20 History Cranberry Fruit Extract [Cranberry] 1,000 mg PO DAILY@1700 01/19/18 01/20/20 History Clotrimazole [Lotrimin AF] 1 applic TOPICAL HS@199911/26/18 01/20/20 History Digoxin [Lanoxin] 125 mcg PO DAILY@07,199911/26/18 01/20/20 History Docusate [Colace] 100 mg PO DAILY@69911/26/18 01/20/20 History levETIRAcetam [Keppra] 500 mg PO BID@07,199901/20/20 01/20/20 History Allergies Allergy/AdvReac Type Severity Reaction Status Date / Time No Known Allergies Allergy Verified 01/20/20 21:20 Surgical - Exam Vital Signs Temp Pulse Resp BP Pulse Ox 97.3 F L 108 H 18 153/83 97 01/20/20 17:44 01/20/20 17:44 01/20/20 17:44 01/20/20 17:44 01/20/20 17:44 - General well developed, moderate distress - Eyes PERRL - ENT normal pinna - Neck no masses - Respiratory normal expansion - Cardiovascular Rhythm: regular - Abdomen Abdomen soft. There is tenderness in the right upper quadrant. There is no rebound or guarding. Results - Labs 01/20/20 18:00 01/20/20 18:00 Abnormal Lab Results - Last 24 Hours (Table) 01/20/20 01/20/20 01/20/20 Range/Units 18:00 18:00 18:00 WBC 25.8 H (3.8-10.6) k/uL MCHC 30.9 L (31.0-37.0) g/dL Neutrophils # 22.5 H (1.3-7.7) k/uL Lymphocytes # 0.9 L (1.0-4.8) k/uL Monocytes # 1.4 H (0-1.0) k/uL Sodium 133 L (137-145) mmol/L BUN 18 H (7-17) mg/dL Creatinine 1.48 H (0.52-1.04) mg/dL Glucose 155 H (74-99) mg/dL Plasma Lactic Acid Arcadio 3.3 H* (0.7-2.0) mmol/L Alkaline Phosphatase 129 H (38-126) U/L Urine Appearance (Clear) Urine Protein (Negative) Urine Blood (Negative) Urine Nitrite (Negative) Ur Leukocyte Esterase (Negative) Urine WBC (0-5) /hpf Urine WBC Clumps (None) /hpf Urine Bacteria (None) /hpf Urine Mucus (None) /hpf 01/20/20 Range/Units 18:30 WBC (3.8-10.6) k/uL MCHC (31.0-37.0) g/dL Neutrophils # (1.3-7.7) k/uL Lymphocytes # (1.0-4.8) k/uL Monocytes # (0-1.0) k/uL Sodium (137-145) mmol/L BUN (7-17) mg/dL Creatinine (0.52-1.04) mg/dL Glucose (74-99) mg/dL Plasma Lactic Acid Arcadio (0.7-2.0) mmol/L Alkaline Phosphatase (38-126) U/L Urine Appearance Cloudy H (Clear) Urine Protein Trace H (Negative) Urine Blood Trace H (Negative) Urine Nitrite Positive H (Negative) Ur Leukocyte Esterase Large H (Negative) Urine WBC 58 H (0-5) /hpf Urine WBC Clumps Moderate H (None) /hpf Urine Bacteria Occasional H (None) /hpf Urine Mucus Rare H (None) /hpf Microbiology - Last 24 Hours (Table) 01/20/20 18:30 Urine Culture - Preliminary Urine,Voided Diabetes panel 01/20/20 Range/Units 18:00 Sodium 133 L (137-145) mmol/L Potassium 4.6 (3.5-5.1) mmol/L Chloride 101 (98-107) mmol/L Carbon Dioxide 24 (22-30) mmol/L BUN 18 H (7-17) mg/dL Creatinine 1.48 H (0.52-1.04) mg/dL Glucose 155 H (74-99) mg/dL Calcium 10.2 (8.4-10.2) mg/dL AST 21 (14-36) U/L ALT 19 (4-34) U/L Alkaline Phosphatase 129 H (38-126) U/L Total Protein 7.6 (6.3-8.2) g/dL Albumin 4.1 (3.5-5.0) g/dL Calcium panel 01/20/20 Range/Units 18:00 Calcium 10.2 (8.4-10.2) mg/dL Albumin 4.1 (3.5-5.0) g/dL Pituitary panel 01/20/20 Range/Units 18:00 Sodium 133 L (137-145) mmol/L Potassium 4.6 (3.5-5.1) mmol/L Chloride 101 (98-107) mmol/L Carbon Dioxide 24 (22-30) mmol/L BUN 18 H (7-17) mg/dL Creatinine 1.48 H (0.52-1.04) mg/dL Glucose 155 H (74-99) mg/dL Calcium 10.2 (8.4-10.2) mg/dL Adrenal panel 01/20/20 Range/Units 18:00 Sodium 133 L (137-145) mmol/L Potassium 4.6 (3.5-5.1) mmol/L Chloride 101 (98-107) mmol/L Carbon Dioxide 24 (22-30) mmol/L BUN 18 H (7-17) mg/dL Creatinine 1.48 H (0.52-1.04) mg/dL Glucose 155 H (74-99) mg/dL Calcium 10.2 (8.4-10.2) mg/dL Total Bilirubin 0.3 (0.2-1.3) mg/dL AST 21 (14-36) U/L ALT 19 (4-34) U/L Alkaline Phosphatase 129 H (38-126) U/L Total Protein 7.6 (6.3-8.2) g/dL Albumin 4.1 (3.5-5.0) g/dL Assessment and Plan Plan: Acute cholecystitis. Patient undergo laparoscopic cholecystectomy today. We will have the [facility] consult for her multiple medical problems.
[2020-01-21] MEDS ORDERED: METOPROLOL TARTRATE 50 MG TAB PO ONE (12:15)
--- NOTE | 2020-01-21 12:34 | XR ---
EXAMINATION TYPE: XR chest 1V DATE OF EXAM: 01/21/2020 COMPARISON: Prior chest x-ray 11/28/2018, CT 01/20/2020 HISTORY: Tachycardia TECHNIQUE: Single frontal view of the chest is obtained. FINDINGS: There is an elevated right hemidiaphragm. The patient is rotated. There is retrocardiac de nsity present in the left hemidiaphragm is partially obscured as on prior. Heart size may be accentua lazara by rotation. No evident pneumothorax. Basilar atelectatic changes suspected on the right as well. There is a pectus deformity. IMPRESSION: Findings may be due to subsegmental basilar atelectatic change rather than pneumonia.
--- NOTE | 2020-01-21 12:41 | ECHOF ---
Referral Reason:AFib MEASUREMENTS -------- HEIGHT: 157.5 cm WEIGHT: 63.5 kg BP: IVSd: 1.2 cm (0.6 - 1.1) LVIDd: 4.0 cm (3.9 - 5.3) LVPWd: 1.2 cm (0.6 - 1.1) IVSs: 1.6 cm LVIDs: 2.6 cm LVPWs: 1.4 cm FINDINGS -------- Atrial fibrillation. This was a techncally difficult study with suboptimal views, , Lumason utilized for enhancement of im ages. The left ventricular size is normal. Overall left ventricular systolic function is normal with, an EF between 60 - 65 %. The right ventricle is normal in size. The left atrial size is normal. The right atrial size is normal. 5.0mg OF Lumason UTLIZED: 2 OR MORE WALL SEGMENTS NOT VISUALIZED. The aortic valve was not well visualized. Mild mitral regurgitation is present. Unable to estimate RVSP due to inadequate TR jet spectral doppler profile. The pulmonic valve was not well visualized. The aortic root size is normal. There is a small, generalized pericardial effusion present. CONCLUSIONS -------- 1. Atrial fibrillation. 2. This was a techncally difficult study with suboptimal views, , Lumason utilized for enhancement of images. 3. The left ventricular size is normal. 4. Overall left ventricular systolic function is normal with, an EF between 60 - 65 %. 5. The right ventricle is normal in size. 6. The left atrial size is normal. 7. The right atrial size is normal. 8. 5.0mg OF Lumason UTLIZED: 2 OR MORE WALL SEGMENTS NOT VISUALIZED. 9. The aortic valve was not well visualized. 10. Mild mitral regurgitation is present. 11. Unable to estimate RVSP due to inadequate TR jet spectral doppler profile. 12. The pulmonic valve was not well visualized. 13. There is a small, generalized pericardial effusion present. WATER CHASER: Kristie Palmer RDCS
--- NOTE | 2020-01-21 12:47 | P.CONS ---
History of Present Illness - Reason for Consult Consult date: 01/21/20 Medical management and preoperative clearance Requesting physician: Gregorio Gasca - Chief Complaint Medical management - History of Present Illness 64-year-old female with PMH of epilepsy and seizure disorder, developmental delay, history of ESBL, atrial fibrillation, delirium presents to the ED for 1 day history of abdominal pain localized to her right lower quadrant. Patient has developmental delay and majority of history is provided by her guardian who is also her sister. Guardian reports that patient had a seizure this morning which was terminated without any medication. This was prior to her receiving her home antiepileptic medication. Patient reports one-day history of abdominal pain, generalized that radiates to her right lower quadrant. She is unable to describe or quantify her pain. No fever or chills. No nausea or vomiting. No diarrhea or constipation. No urinary complaints. She denies any chest pain, shortness of breath or palpitations. POA reports mostly sedentary lifestyle. In the ED, she was tachycardic in the 120s. CBC showed leukocytosis of 25.8. CMP showed sodium of 133, BUN 18, creatinine 1.48, glucose 155, alkaline phosp hatase 129. Lactic acid was 3.3. Urinalysis showed positive nitrite and large leukocyte esterase. CT abdomen and pelvis showed acute cholecystitis with thickened gallbladder and 9 mm calculus in the cystic duct, 3.5 cm cystic lesion in the left ovary stable, diverticulosis without diverticulitis. Patient is admitted to general surgery for acute cholecystitis. Review of Systems Pertinent positives and negatives as discussed in HPI, a complete review of systems was performed and all other systems are negative. Past Medical History Past Medical History: Atrial Fibrillation, Hypertension, Pneumonia, Seizure Disorder Additional Past Medical History / Comment(s): Vertigo, paroxysmal atrial fibrillation, moderate intellectual disability, SEPTEMBER 2016 UTI AND BACTEREMIA History of Any Multi-Drug Resistant Organisms: ESBL Year Discovered:: 11/03/18 MDRO Source:: urine - E coli ESBL Past Surgical History: No Surgical Hx Reported Additional Past Surgical History / Comment(s): hx picc line-since removed Past Anesthesia/Blood Transfusion Reactions: No Reported Reaction Additional Past Anesthesia/Blood Transfusion Reaction / Comm: healthcare network consultant says not that she knows of Past Psychological History: Anxiety, Schizoaffective Disorder Additional Psychological History / Comment(s): OCD, auditory hallucinations, needs reassurance that she is ok. depressive type schizoaffective. Single. Has a sister as her guardian. Does have 24-hour care in her apartment. No animals in the apartment. No travel history Smoking Status: Never smoker Past Alcohol Use History: None Reported Additional Past Alcohol Use History / Comment(s): Patient is a lifelong nonsmoker, no illicit drug use, alcohol use. Patient lives in her own apartment at [facility] has a room mate and 24-hour care. There are no pets in the home. No recent travel.has walker, rollator, cane showr chair if needed Past Drug Use History: None Reported - Past Family History Father Family Medical History: Cancer Additional Family Medical History / Comment(s): lymphoma Mother Family Medical History: AFIB, Congestive Heart Failure (CHF) Medications and Allergies Home Medications Medication Instructions Recorded Confirmed Type Aspirin 325 mg PO DAILY@1700 02/13/14 01/20/20 History OXcarbazepine [Trileptal] 300 mg PO BID@07,199902/13/14 01/20/20 History Sertraline [Zoloft] 150 mg PO DAILY@69902/13/14 01/20/20 History Verapamil HCl [Verapamil ER] 240 mg PO DAILY@69902/13/14 01/20/20 History Ziprasidone [Geodon] 80 mg PO BID@07,199902/13/14 01/20/20 History lamoTRIgine [LaMICtal] 200 mg PO TID@0700,1400,199902/13/14 01/20/20 History Cranberry Fruit Extract [Cranberry] 1,000 mg PO DAILY@169901/19/18 01/20/20 History Clotrimazole [Lotrimin AF] 1 applic TOPICAL HS@199911/26/18 01/20/20 History Digoxin [Lanoxin] 125 mcg PO DAILY@07,199911/26/18 01/20/20 History Docusate [Colace] 100 mg PO DAILY@69911/26/18 01/20/20 History levETIRAcetam [Keppra] 500 mg PO BID@0700,199901/20/20 01/20/20 History Allergies Allergy/AdvReac Type Severity Reaction Status Date / Time No Known Allergies Allergy Verified 01/20/20 21:20 Physical Exam Vitals: Vital Signs Temp Pulse Pulse Resp BP BP Pulse Ox 01/21/20 08:26 98.5 F 01/21/20 04:45 97.8 F 122 H 22 165/90 93 L 01/20/20 20:18 97.6 F 98 18 166/84 95 01/20/20 17:44 97.3 F L 108 H 18 153/83 97 Intake and Output 01/20/20 01/21/20 01/21/20 22:59 06:59 14:59 Intake Total 250 Balance 250 Intake: Intake, IV Titration 250 Amount Vancomycin 1,250 mg In 250 Sodium Chloride 0.9% 250 ml @ 125 mls/hr IVPB Q24H [facility] Rx#:[id number] Other: Voiding Method Toilet Toilet # Voids 3 1 Weight 67.132 kg General: [non toxic], [no distress], [appears at stated age] Derm: [warm], [dry] Head: [atraumatic], [normocephalic], [symmetric] Eyes: [EOMI], [no lid lag], [anicteric sclera] Mouth: [no lip lesion], [mucus membranes moist] Cardiovascular: [S1S2 reg], [tachycardic], [positive DP pulse bilateral], Lungs: [CTA bilateral], [no rhonchi, no rales] , [no accessory muscle use] Abdominal: [soft], [generalized tenderness without rebound localized to the right upper and right lower quadrant], [no guarding], [no appreciable organomegaly] Ext: [no gross muscle atrophy], [no edema], [no contractures] Neuro: [no focal neuro deficits] Psych: [Alert], [oriented]] Results CBC & Chem 7: 01/20/20 18:00 01/20/20 18:00 Labs: Abnormal Lab Results - Last 24 Hours (Table) 01/20/20 01/20/20 01/20/20 Range/Units 18:00 18:00 18:00 WBC 25.8 H (3.8-10.6) k/uL MCHC 30.9 L (31.0-37.0) g/dL Neutrophils # 22.5 H (1.3-7.7) k/uL Lymphocytes # 0.9 L (1.0-4.8) k/uL Monocytes # 1.4 H (0-1.0) k/uL Sodium 133 L (137-145) mmol/L BUN 18 H (7-17) mg/dL Creatinine 1.48 H (0.52-1.04) mg/dL Glucose 155 H (74-99) mg/dL Plasma Lactic Acid Arcadio 3.3 H* (0.7-2.0) mmol/L Alkaline Phosphatase 129 H (38-126) U/L Urine Appearance (Clear) Urine Protein (Negative) Urine Blood (Negative) Urine Nitrite (Negative) Ur Leukocyte Esterase (Negative) Urine WBC (0-5) /hpf Urine WBC Clumps (None) /hpf Urine Bacteria (None) /hpf Urine Mucus (None) /hpf 01/20/20 Range/Units 18:30 WBC (3.8-10.6) k/uL MCHC (31.0-37.0) g/dL Neutrophils # (1.3-7.7) k/uL Lymphocytes # (1.0-4.8) k/uL Monocytes # (0-1.0) k/uL Sodium (137-145) mmol/L BUN (7-17) mg/dL Creatinine (0.52-1.04) mg/dL Glucose (74-99) mg/dL Plasma Lactic Acid Arcadio (0.7-2.0) mmol/L Alkaline Phosphatase (38-126) U/L Urine Appearance Cloudy H (Clear) Urine Protein Trace H (Negative) Urine Blood Trace H (Negative) Urine Nitrite Positive H (Negative) Ur Leukocyte Esterase Large H (Negative) Urine WBC 58 H (0-5) /hpf Urine WBC Clumps Moderate H (None) /hpf Urine Bacteria Occasional H (None) /hpf Urine Mucus Rare H (None) /hpf Microbiology - Last 24 Hours (Table) 01/20/20 18:30 Urine Culture - Preliminary Urine,Voided Assessment and Plan Assessment: Sepsis related to acute cholecystitis Seizure with history of epilepsy Sinus tachycardia with history of atrial fibrillation Lactic acidosis Acute kidney injury Hyponatremia Abnormal urinalysis Delirium Patient meets sepsis criteria with leukocytosis, tachycardia and positive source of infection. CT abdomen and pelvis confirms acute cholecystitis due to cystic stone. She is currently on Zosyn and vancomycin. Continue normal saline at 75 mL per hour. Follow blood culture. General surgery on board for possible cholecystectomy. Echocardiogram ordered for preoperative clearance along with cardiology consultation. Guardian reports seizure this morning prior to receiving home antiepileptic medication. We will restart Lamictal, Keppra, Trileptal. Patient will be placed on seizure precaution and seizure pads. EKG shows sinus tachycardia. This is likely related to sepsis and pain. Echocardiogram has been ordered. Restart verapamil and digoxin for rate and rhythm control. She is not on any anticoagulation at this time. Continue telemetry monitoring. Follow cardiology consultation. Initial lactic acid 3.3. Resolved with IV hydration. Repeat lactic acid negative. Creatinine 1.48. Continue normal saline at 75 mL per hour. Avoid nephrotoxins. Repeat BMP tomorrow morning. Sodium of 133 likely related to dehydration. IV hydration as above. Repeat BMP tomorrow morning. Urinalysis positive for nitrite and leukocyte esterase. Patient currently on Zosyn. Follow urine culture. Restart Geodon for delirium. DVT prophylaxis: [SCD boots] Discussed with: [Patient, sister and guardian] Anticipated discharge: [2-3 days] Anticipated discharge place: [Home versus [facility]] A total of [35] minutes was spent on the care of this complex patient more than 50% of the time was spent in counseling and care coordination. Patient's PCP is Dr. Hernandez. Her decision-maker is Karen who was guardian and sister. Patient is full code. We will wait on cardiology evaluation to clear the patient for surgery. Thank you for this consult. Please call [facility] with any additional questions or concerns.
--- NOTE | 2020-01-21 13:14 | P.CRDCN ---
History of Present Illness History of present illness: HISTORY OF PRESENTING ILLNESS This is a pleasant 64-year-old female past medical history significant for paroxysmal atrial fibrillation on long-term anticoagulation secondary to fr equent falls, hypertension, seizure disorder, schizoaffective disorder and intellectual disability. Her sister is her guardian and is at the bedside. She does not follow regularly in the office with or a chest. We have been asked to see in consultation for preoperative evaluation. According to the sister she has 24-hour care at her correction apartment. She was notified by the caregivers yesterday that the patient had poor appetite in the morning and did not eat breakfast. She then started complaining of significant pain in the right upper quadrant. On arrival to the emergency department she underwent a CT of her abdomen pelvis revealing evidence of acute cholecystitis with hypertro phic and thickened wall gallbladder with surrounding inflammation with trace perihepatic ascites and moderate cul-de-sac free fluid likely reactive to gallbladder inflammation. She was seen in evaluation by surgery and is scheduled to undergo laparoscopic cholecystectomy this afternoon. She is seen and examined resting comfortably laying flat in bed in no acute distress. She continues to complain of discomfort in her abdomen and chest. She is vague regarding her symptoms. DIAGNOSTICS EKG reveals sinus mechanism heart rate of [address] depression noted with T- wave inversions in the precordial leads repeat EKG requested and reviewed. Reveals persistent sinus tachycardia heart rate of [address] changes. Chest xray reveals an elevated right hemidiaphragm basilar atelectasis. Laboratory reviewed, WBC 25.8, hemoglobin 11.9, platelets 374, sodium 133, potassium 4.6, creatinine 1.48, lactic acid on admission 3.3 repeat after fluid hydration 1.0 and alkaline phosphatase 129. Current cardiac medications include aspirin 325 mg daily, digoxin 125 g daily and verapamil 240 mg daily. REVIEW OF SYSTEMS At the time of my exam: CONSTITUTIONAL: Denies fever or chills. CARDIOVASCULAR: Denies chest pain, shortness of breath, orthopnea, PND or palpitations. RESPIRATORY: Denies cough. GASTROINTESTINAL: Complains of abdominal pain. Denies diarrhea, constipation, nausea or vomiting. MUSCULOSKELETAL: Denies myalgias. NEUROLOGIC: Denies numbness, tingling or weakness. ENDOCRINE: Denies fatigue, weight change, polydipsia or polyurina. GENITOURINARY: Denies burning, hematuria or urgency with micturation. HEMATOLOGIC: Denies history of anemia or bleeding. PHYSICAL EXAMINATION Blood pressure 115/73 heart rate 114 afebrile and maintaining oxygen saturation on room air. CONSTITUTIONAL: No apparent distress. HEENT: Head is normocephalic. Pupils are equal, round. Sclerae anicteric. Mucous membranes of the mouth are moist. No JVD. No carotid bruit. CHEST EXAMINATION: Lungs are clear to auscultation. No chest wall tenderness is noted on palpation or with deep breathing. HEART EXAMINATION: Tachycardiac. Regular rate and rhythm. S1, S2 heard. Systolic ejection murmur at the left sternal border, no gallops or rub. ABDOMEN: Soft, right upper quadrant tenderness. Positive bowel sounds. EXTREMITIES: 2+ peripheral pulses, no lower extremity edema and no calf tenderness. NEUROLOGIC EXAMINATION: Patient is awake, alert and oriented. 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 Given her abnormal EKG we will check a STAT troponin. Echocardiogram reviewed, no wall motion abnormalities noted and mild MR. She is high risk to undergo surgical intervention. This was explained to her sister in great detail and she would prefer to proceed with surgery. Give one dose of PO lopressor now, 50 mg. She should be placed at a higher level of care post-operatively. We will continue to follow closely. Thank you kindly for this consultation. Nurse Practitioner note has been reviewed, I agree with a documented findings and plan of care. Patient was seen and examined. Past Medical History Past Medical History: Atrial Fibrillation, Hypertension, Pneumonia, Seizure Disorder Additional Past Medical History / Comment(s): Vertigo, paroxysmal atrial fibrillation, moderate intellectual disability, SEPTEMBER 2016 UTI AND BACTEREMIA History of Any Multi-Drug Resistant Organisms: ESBL Date of last positivie culture/infection: 11/03/18 MDRO Source:: urine - E coli ESBL Past Surgical History: No Surgical Hx Reported Additional Past Surgical History / Comment(s): hx picc line-since removed Past Anesthesia/Blood Transfusion Reactions: No Reported Reaction Additional Past Anesthesia/Blood Transfusion Reaction / Comment(s): medicare interviewer says not that she knows of Past Psychological History: Anxiety, Schizoaffective Disorder Additional Psychological History / Comment(s): OCD, auditory hallucinations, needs reassurance that she is ok. depressive type schizoaffective. Single. Has a sister as her guardian. Does have 24-hour care in her apartment. No animals in the apartment. No travel history Smoking Status: Never smoker Past Alcohol Use History: None Reported Additional Past Alcohol Use History / Comment(s): Patient is a lifelong nonsmoker, no illicit drug use, alcohol use. Patient lives in her own apartment at [facility] has a room mate and 24-hour care. There are no pets in the home. No recent travel.has walker, rollator, cane showr chair if needed Past Drug Use History: None Reported - Past Family History Father Family Medical History: Cancer Additional Family Medical History / Comment(s): lymphoma Mother Family Medical History: AFIB, Congestive Heart Failure (CHF) Medications and Allergies Home Medications Medication Instructions Recorded Confirmed Type Aspirin 325 mg PO DAILY@1700 02/13/14 01/20/20 History OXcarbazepine [Trileptal] 300 mg PO BID@0700,199902/13/14 01/20/20 History Sertraline [Zoloft] 150 mg PO DAILY@69902/13/14 01/20/20 History Verapamil HCl [Verapamil ER] 240 mg PO DAILY@69902/13/14 01/20/20 History Ziprasidone [Geodon] 80 mg PO BID@0700,199902/13/14 01/20/20 History lamoTRIgine [LaMICtal] 200 mg PO TID@0700,1400,199902/13/14 01/20/20 History Cranberry Fruit Extract [Cranberry] 1,000 mg PO DAILY@1700 01/19/18 01/20/20 History Clotrimazole [Lotrimin AF] 1 applic TOPICAL HS@199911/26/18 01/20/20 History Digoxin [Lanoxin] 125 mcg PO DAILY@0700,199911/26/18 01/20/20 History Docusate [Colace] 100 mg PO DAILY@0700 11/26/18 01/20/20 History levETIRAcetam [Keppra] 500 mg PO BID@0700,199901/20/20 01/20/20 History Allergies Allergy/AdvReac Type Severity Reaction Status Date / Time No Known Allergies Allergy Verified 01/20/20 21:20 Physical Exam Vitals: Vital Signs Temp Pulse Pulse Resp BP BP Pulse Ox 01/21/20 12:19 98.5 F 114 H 16 115/73 90 L 01/21/20 08:26 98.5 F 01/21/20 04:45 97.8 F 122 H 22 165/90 93 L 01/20/20 20:18 97.6 F 98 18 166/84 95 01/20/20 17:44 97.3 F L 108 H 18 153/83 97 Intake and Output 01/20/20 01/21/20 01/21/20 22:59 06:59 14:59 Intake Total 250 Balance 250 Intake: Intake, IV Titration 250 Amount Vancomycin 1,250 mg In 250 Sodium Chloride 0.9% 250 ml @ 125 mls/hr IVPB Q24H [facility] Rx#:[id number] Other: Voiding Method Toilet Toilet # Voids 3 1 Weight 67.132 kg Results 01/20/20 18:00 01/20/20 18:00 Cardiac Enzymes 01/20/20 Range/Units 18:00 AST 21 (14-36) U/L CBC 01/20/20 Range/Units 18:00 WBC 25.8 H (3.8-10.6) k/uL RBC 4.47 (3.80-5.40) m/uL Hgb 11.9 (11.4-16.0) gm/dL Hct 38.6 (34.0-46.0) % Plt Count 374 (150-450) k/uL Comprehensive Metabolic Panel 01/20/20 Range/Units 18:00 Sodium 133 L (137-145) mmol/L Potassium 4.6 (3.5-5.1) mmol/L Chloride 101 (98-107) mmol/L Carbon Dioxide 24 (22-30) mmol/L BUN 18 H (7-17) mg/dL Creatinine 1.48 H (0.52-1.04) mg/dL Glucose 155 H (74-99) mg/dL Calcium 10.2 (8.4-10.2) mg/dL AST 21 (14-36) U/L ALT 19 (4-34) U/L Alkaline Phosphatase 129 H (38-126) U/L Total Protein 7.6 (6.3-8.2) g/dL Albumin 4.1 (3.5-5.0) g/dL Current Medications Generic Name Dose Route Start Last Admin Trade Name Freq PRN Reason Stop Dose Admin Acetaminophen 650 mg 01/20/20 19:04 Tylenol Tab PO Q6HR PRN Mild Pain or Fever > 100.5 Aspirin 325 mg 01/21/20 17:00 Aspirin PO DAILY@1700 [facility] Clotrimazole 1 applic 01/21/20 20:00 Lotrimin Cream TOPICAL HS@1999 [facility] Digoxin 125 mcg 01/21/20 08:30 01/21/20 09:44 Lanoxin PO 125 mcg DAILY@ [facility] Administration Docusate Sodium 100 mg 01/21/20 08:30 01/21/20 09:44 Colace PO 100 mg DAILY@0700 [facility] Administration Hydromorphone HCl 0.5 mg 01/20/20 19:04 01/21/20 09:51 Dilaudid IVP 0.5 mg Q3HR PRN Administration Moderate Pain Hydromorphone HCl 1 mg 01/20/20 19:04 Dilaudid IVP Q3HR PRN Severe Pain Sodium Chloride 1,000 mls @ 75 mls/hr 01/20/20 19:15 01/21/20 12:27 Saline 0.9% IV 75 mls/hr .[id number] [facility] Administration Vancomycin HCl 1,250 mg/ 250 mls @ 125 mls/hr 01/21/20 21:00 Sodium Chloride IVPB Q24H [facility] Ibuprofen 400 mg 01/20/20 19:04 Motrin PO Q6HR PRN Mild Pain or Fever > 100.5 Lamotrigine 200 mg 01/21/20 08:30 01/21/20 09:45 Lamictal PO 200 mg TID@699,1399,1999 [facility] Administration Levetiracetam 500 mg 01/21/20 08:30 01/21/20 09:45 Keppra PO 500 mg BID@ [facility] Administration Lorazepam 0.5 mg 01/20/20 19:04 Ativan IV Q6HR PRN Anxiety Morphine Sulfate 4 mg 01/20/20 19:04 Morphine Sulfate (Inj) IV Q4HR PRN Severe Pain Naloxone HCl 0.2 mg 01/20/20 19:04 Narcan IV Q2M PRN Opioid Reversal Ondansetron HCl 4 mg 01/20/20 19:04 Zofran IVP Q8HR PRN Nausea And Vomiting Oxcarbazepine 300 mg 01/21/20 08:30 01/21/20 09:45 Trileptal PO 300 mg BID@699,1999 [facility] Administration Sertraline HCl 150 mg 01/21/20 08:30 01/21/20 09:45 Zoloft PO 150 mg DAILY@0700 [facility] Administration Verapamil HCl 240 mg 01/21/20 08:30 01/21/20 09:46 Isoptin Sr PO 240 mg DAILY@0700 [facility] Administration Ziprasidone 80 mg 01/21/20 08:30 01/21/20 09:46 Geodon PO 80 mg BID@ [facility] Administration Intake and Output 01/20/20 01/21/20 01/21/20 22:59 06:59 14:59 Intake Total 250 Balance 250 Intake: Intake, IV Titration 250 Amount Vancomycin 1,250 mg In 250 Sodium Chloride 0.9% 250 ml @ 125 mls/hr IVPB Q24H [facility] Rx#:[id number] Other: Voiding Method Toilet Toilet # Voids 3 1 Weight 67.132 kg 01/20/20 18:00 01/20/20 18:00
[2020-01-21] MEDS ORDERED: IV FLUID CONTINUATION 500 ML IV ONE (13:33)
[2020-01-21] MEDS ORDERED: PROPOFOL 10 MG/ML 20 ML VIAL IV ONE (13:56)
[2020-01-21] MEDS ORDERED: fentaNYL (PF) 50 MCG/ML 2 ML AMP ONE (13:56)
[2020-01-21] MEDS ORDERED: KETOROLAC 30 MG/ML 1 ML VIAL ONE (13:56)
[2020-01-21] MEDS ORDERED: ePHEDrine SULFATE/0.9% NACL/PF 50 MG/5 ML SYRINGE IV ONE (13:56)
[2020-01-21] MEDS ORDERED: PHENYLEPHRINE-0.9% NACL SYG 1 MG/10 ML SYRINGE ONE (13:56)
[2020-01-21] MEDS ORDERED: HEPARIN SODIUM,PORCINE 5,000 UNIT/ML 1 ML VIAL ONE (13:56)
[2020-01-21] MEDS ORDERED: LIDOCAINE 1% INJ 10MG/ML (20 ML MDV) ONE (13:56)
[2020-01-21] MEDS ORDERED: SUCCINYLCHOLINE CHLORIDE 100 MG/5 ML SYR IV ONE (13:56)
[2020-01-21] MEDS ORDERED: HEPARIN SODIUM,PORCINE 5,000 UNIT/ML 1 ML VIAL SQ ONE (13:58)
[2020-01-21] MEDS ORDERED: BUPIVACAIN-EPI 0.25%-1:200,000 30 ML VIAL SQ ONE (14:22)
[2020-01-21] MEDS ORDERED: LACTATED RINGERS 1,000 ML IV ONE (14:46)
--- NOTE | 2020-01-21 15:17 | P.OP ---
Date of Procedure: 01/21/20 Preoperative Diagnosis: Acute cholecystitis Postoperative Diagnosis: Acute gangrenous cholecystitis Procedure(s) Performed: Laparoscopic cholecystectomy Anesthesia: LALY Surgeon: Gregorio Gasca Estimated Blood Loss (ml): 5 Pathology: other (Gallbladder) Condition: stable Disposition: PACU Description of Procedure: The patient was placed on the operating table. The patient received a general endotracheal tube anesthesia. The patients abdomen was prepped and draped in the usual sterile fashion. Through an infraumbilical stab incision, the fascia of the anterior abdominal wall was grasped with a pair of Kochers and then the Veress needle was placed in the peritoneal cavity. Position of the Veress needle was confirmed with positive drop test. The abdomen was then insufflated. After adequate insufflation, the 10 mm trocar was placed in the peritoneal cavity. Following this the laparoscope was placed in the peritoneal cavity. The patient was placed in the head-up, right side up position and then a 5 mm trocar was placed in the right lateral and right subcostal position under direct visualization. A 8 mm trocar was placed in the epigastric position. The gallbladder appeared to have patchy necrosis. The gallbladder was hydropic. The gallbladder was aspirated in order to grasp the gallbladder. The gallbladder was grasped in the fundus and infundibulum. Traction on the gallbladder was placed in the lateral and the cephalad positions. The triangle of Calot was visualized.. The cystic duct was bluntly dissected until the union of the cystic duct and common bile duct was seen. A critical view of safety was achieved. The cystic duct was then divided and sealed with the Harmonic scissors. A PDS Endoloop was then placed throughout the cystic duct stump. The cystic artery divided and sealed with the Harmonic scissors. The gallbladder was then removed from the liver bed using Harmonic scissors. The gallbladder was then extracted through the epigastric port site. Operative field was checked for any bleeding spots and Harmonic scissors was used to coagulate the liver bed. The abdomen was irrigated. The trocars were removed. The skin was closed using interrupted 3-0 Vicryl suture. Dermabond dressing were applied. The patient tolerated the procedure well.
[2020-01-21] MEDS: HYDROmorphone 1 MG/ML 1 ML SYRINGE IVP ONE ×2 (15:20→15:31)
[2020-01-21] MEDS ORDERED: ASPIRIN 325 MG TAB PO SCH (17:00)
[2020-01-21] MEDS ORDERED: NON FORMULARY DRUG (Cranberry Fruit Extract [Cranberry] 1,000 MG) PO SCH (17:00)
[2020-01-21] MEDS: CLOTRIMAZOLE 1% CREAM 15 GM TUBE TOPICAL SCH (20:24)
[2020-01-21] MEDS ORDERED: VANCOMYCIN 1,250 MG in SODIUM CHLORIDE 0.9% 250 ML IVPB SCH (21:00)
[2020-01-22] MEDS: HYDROmorphone 0.5 MG/0.5 ML SYRINGE IVP PRN ×3 (00:09→10:49)
[2020-01-22] MEDS: ZIPRASIDONE 80 MG CAP PO SCH ×2 (08:22→21:07)
[2020-01-22] MEDS: VERAPAMIL SR 240 MG TABLET.ER PO SCH (08:22)
[2020-01-22] MEDS: lamoTRIgine 100 MG TAB PO SCH ×3 (08:22→20:53)
[2020-01-22] MEDS: SERTRALINE 50 MG TAB PO SCH (08:22)
[2020-01-22] MEDS: levETIRAcetam 500 MG TAB PO SCH ×2 (08:22→20:53)
[2020-01-22] MEDS: DIGOXIN 125 MCG TAB PO SCH (08:23)
[2020-01-22] MEDS: OXcarbazepine 300 MG TAB PO SCH ×2 (08:23→21:07)
[2020-01-22] MEDS: DOCUSATE 100 MG CAP PO SCH (08:23)
[2020-01-22 10:23] LABS: Basophils # (A) 0.1 k/uL (0-0.2); Basophils % (A) 0 %; Eosinophils % (A) 0 %; HCT 32.9 % (34.0-46.0); HGB 10.3 gm/dL (11.4-16.0); Hypochromasia Moderate; Lymphocytes # (A) 1.4 k/uL (1.0-4.8); Lymphocytes % (A) 4 %; MCH 28.7 pg (25.0-35.0); MCHC 31.2 g/dL (31.0-37.0); MCV 91.7 fL (80.0-100.0); Mean Platelet Volume 7.5; Monocytes # (A) 1.4 k/uL (0-1.0); Monocytes % (A) 4 %; Neutrophils # (A) 35.3 k/uL (1.3-7.7); Neutrophils % (A) 91 %; Platelet Count 301 k/uL (150-450); RBC 3.58 m/uL (3.80-5.40); RDW 14.7 % (11.5-15.5); WBC 38.7 k/uL (3.8-10.6)
[2020-01-22 10:38] LABS: Albumin 3.1 g/dL (3.5-5.0); Calcium 8.4 mg/dL (8.4-10.2); Potassium 5.2 mmol/L (3.5-5.1); Total Bilirubin 0.5 mg/dL (0.2-1.3); Total Protein 5.9 g/dL (6.3-8.2)
[2020-01-22 10:43] LABS: Vancomycin,Random 24.1 ug/mL
[2020-01-22] MEDS ORDERED: VANCOMYCIN IV PER PHARMACY 1 EACH MISC MISCELLANE PRN (12:03)
--- NOTE | 2020-01-22 12:15 | P.PN ---
Progress Note - Text Progress Note Date: 01/22/20 The patient's doing well. She feels minimal pain. On exam vital signs are stable. Abdomen soft. Patient will be discharged home when cleared by cardiology.
--- NOTE | 2020-01-22 12:20 | P.PN ---
Subjective HISTORY OF PRESENTING ILLNESS This is a pleasant 64-year-old female past medical history significant for paroxysmal atrial fibrillation on long-term anticoagulation secondary to frequent falls, hypertension, seizure disorder, schizoaffective disorder and intellectual disability. Her sister is her guardian and is at the bedside. She does not follow regularly in the office with a corn miller. She underwent laparoscopic cholecystectomy yesterday revealing an acute gangrenous cholecystitis. She is seen and examined sitting up on the edge of the bed. Her communication is not optimal however she is rocking back and forth in stating she is in pain. She is unable to verbalize the location of her pain. Blood pressure 103/65 heart rate 98 afebrile maintaining oxygen saturation on room air. Laboratory data reviewed, WBC 38, hemoglobin 10.3, platelets 301, sodium 128, potassium 5.2, creatinine 2.8 up from 1.48 on admission and troponin negative times one. Currently maintained on digoxin 125 g twice a day and verapamil 240 mg daily. PHYSICAL EXAMINATION CONSTITUTIONAL: No apparent distress. HEENT: Head is normocephalic. Pupils are equal, round. Sclerae anicteric. Mucous membranes of the mouth are moist. No JVD. No carotid bruit. CHEST EXAMINATION: Lungs are clear to auscultation. No chest wall tenderness is noted on palpation or with deep breathing. HEART EXAMINATION: Tachycardiac. Regular rate and rhythm. S1, S2 heard. Systolic ejection murmur at the left sternal border, no gallops or rub. EXTREMITIES: 2+ peripheral pulses, no lower extremity edema and no calf tenderness. ASSESSMENT Abdominal pain with evidence of cholecystitis, POD#1 laparoscopic cholecystectomy Hyperkalemia Acute kidney injury Hypotension through the night Leukocytosis Lactic acidosis Urinary tract infection Paroxysmal atrial fibrillation not on fdc anti-coagulation secondary to frequent falls Abnormal baseline EKG PLAN Recommend nephrology consultation. Hold digoxin and check a digoxin level in the morning. Hold verapamil secondary to hypotension. Repeat BMP and magnesium level in the morning. Further recommendations to follow based upon clinical course. Nurse Practitioner note has been reviewed, I agree with a documented findings and plan of care. Patient was seen and examined. Objective - Vital Signs Vital signs: Vital Signs Temp 98.1 F 01/22/20 04:25 Pulse 98 01/22/20 08:35 Resp 22 01/22/20 08:35 BP 103/65 01/22/20 04:25 Pulse Ox 91 L 07/21/20 04:25 Intake & Output 01/21/20 01/22/20 01/22/20 18:59 06:59 18:59 Intake Total 900 1215 Output Total 5 320 Balance 895 1215 -320 Intake: IV 900 Intake, IV Titration 1215 Amount Sodium Chloride 0.9% 1, 965 000 ml @ 75 mls/hr IV . [id number] [facility] Rx#:[id number] Vancomycin 1,250 mg In 250 Sodium Chloride 0.9% 250 ml @ 125 mls/hr IVPB Q24H [facility] Rx#:[id number] Output: Urine 320 Straight 320 Estimated Blood Loss 5 Other: Voiding Method Toilet Toilet Toilet Bedside Commode Bedside Commode # Voids 2 - Labs CBC & Chem 7: 01/22/20 06:42 01/22/20 06:42 Labs: Abnormal Lab Results - Last 24 Hours (Table) 01/22/20 01/22/20 01/22/20 Range/Units 06:42 06:42 06:42 WBC 38.7 H (3.8-10.6) k/uL RBC 3.58 L (3.80-5.40) m/uL Hgb 10.3 L (11.4-16.0) gm/dL Hct 32.9 L (34.0-46.0) % Neutrophils # 35.3 H (1.3-7.7) k/uL Monocytes # 1.4 H (0-1.0) k/uL Sodium 128 L (137-145) mmol/L Potassium 5.2 H (3.5-5.1) mmol/L Chloride 97 L (98-107) mmol/L Carbon Dioxide 18 L (22-30) mmol/L BUN 29 H (7-17) mg/dL Creatinine 2.80 H 2.81 H (0.52-1.04) mg/dL Total Protein 5.9 L (6.3-8.2) g/dL Albumin 3.1 L (3.5-5.0) g/dL Microbiology - Last 24 Hours (Table) 01/20/20 19:30 Blood Culture - Preliminary Blood No Growth after 24 hours 01/20/20 18:30 Urine Culture - Preliminary Urine,Voided Gram Neg Bacilli
--- NOTE | 2020-01-22 13:18 | P.PN ---
Subjective Progress Note Date: 01/22/20 Principal diagnosis: Cholecystitis, UTI 64-year-old female with PMH of epilepsy and seizure disorder, developmental delay, history of ESBL, atrial fibrillation, delirium presents to the ED for 1 day history of abdominal pain localized to her right side. Guardian reports that patient had a seizure this morning which was terminated without any medication. This was prior to her receiving her home antiepileptic medication. In the ED, she was tachycardic in the 120s. CBC showed leukocytosis of 25.8. CMP showed sodium of 133, BUN 18, creatinine 1.48, glucose 155, alkaline phosphatase 129. Lactic acid was 3.3. Urinalysis showed positive nitrite and large leukocyte esterase. CT abdomen and pelvis showed acute cholecystitis with thickened gallbladder and 9 mm calculus in the cystic duct, 3.5 cm cystic lesion in the left ovary stable, diverticulosis without diverticulitis. Patient is admitted to general surgery for acute cholecystitis. Patient was initially started on Zosyn and vancomycin. Cardiology evaluated the patient and gave preoperative clearance. She underwent laparoscopic cholecystectomy on 01/21/2020. Patient was seen and examined. No acute events overnight. Patient states that her "belly hurts". She is unable to describe her symptoms any further. Review of vitals show relative hypotension yesterday evening. This morning, CBC shows leukocytosis of 38.7. Hemoglobin is 10.3. CMP shows sodium of 128, potassium of 5.2, chloride 97, bicarbonate 18, BUN 29, creatinine 2.81. Objective - Vital Signs Vital signs: Vital Signs Temp 98.9 F 01/22/20 12:23 Pulse 88 01/22/20 12:23 Resp 16 01/22/20 12:23 BP 95/65 01/22/20 12:23 Pulse Ox 92 L 01/22/20 12:23 Intake & Output 01/21/20 01/22/20 01/22/20 18:59 06:59 18:59 Intake Total 900 1215 Output Total 5 320 Balance 895 1215 -320 Intake: IV 900 Intake, IV Titration 1215 Amount Sodium Chloride 0.9% 1, 965 000 ml @ 75 mls/hr IV . [id number] [facility] Rx#:[id number] Vancomycin 1,250 mg In 250 Sodium Chloride 0.9% 250 ml @ 125 mls/hr IVPB Q24H [facility] Rx#:[id number] Output: Urine 320 Straight 320 Estimated Blood Loss 5 Other: Voiding Method Toilet Toilet Toilet Bedside Commode Bedside Commode # Voids 2 - Exam General: [non toxic], [no distress], [appears at stated age] Derm: [warm], [dry] Head: [atraumatic], [normocephalic], [symmetric] Eyes: [EOMI], [no lid lag], [anicteric sclera] Mouth: [no lip lesion], [mucus membranes moist] Cardiovascular: [S1S2 reg], [tachycardic], [positive posterior tibial pulse bilateral], Lungs: [CTA bilateral], [no rhonchi, no rales] , [no accessory muscle use] Abdominal: [soft with decreased bowel sounds], [ nontender to palpation], [no guarding], [no appreciable organomegaly], laparoscopic scar is intact Ext: [no gross muscle atrophy], [no edema], [no contractures] Neuro: [no focal neuro deficits] Psych: [Unable to determine] - Labs CBC & Chem 7: 01/22/20 06:42 01/22/20 06:42 Labs: Abnormal Lab Results - Last 24 Hours (Table) 01/22/20 01/22/20 01/22/20 Range/Units 06:42 06:42 06:42 WBC 38.7 H (3.8-10.6) k/uL RBC 3.58 L (3.80-5.40) m/uL Hgb 10.3 L (11.4-16.0) gm/dL Hct 32.9 L (34.0-46.0) % Neutrophils # 35.3 H (1.3-7.7) k/uL Monocytes # 1.4 H (0-1.0) k/uL Sodium 128 L (137-145) mmol/L Potassium 5.2 H (3.5-5.1) mmol/L Chloride 97 L (98-107) mmol/L Carbon Dioxide 18 L (22-30) mmol/L BUN 29 H (7-17) mg/dL Creatinine 2.80 H 2.81 H (0.52-1.04) mg/dL Magnesium (1.6-2.3) mg/dL Total Protein 5.9 L (6.3-8.2) g/dL Albumin 3.1 L (3.5-5.0) g/dL 01/22/20 Range/Units 06:42 WBC (3.8-10.6) k/uL RBC (3.80-5.40) m/uL Hgb (11.4-16.0) gm/dL Hct (34.0-46.0) % Neutrophils # (1.3-7.7) k/uL Monocytes # (0-1.0) k/uL Sodium (137-145) mmol/L Potassium (3.5-5.1) mmol/L Chloride (98-107) mmol/L Carbon Dioxide (22-30) mmol/L BUN (7-17) mg/dL Creatinine (0.52-1.04) mg/dL Magnesium 1.3 L (1.6-2.3) mg/dL Total Protein (6.3-8.2) g/dL Albumin (3.5-5.0) g/dL Microbiology - Last 24 Hours (Table) 01/20/20 19:30 Blood Culture - Preliminary Blood No Growth after 24 hours 01/20/20 18:30 Urine Culture - Preliminary Urine,Voided Gram Neg Bacilli Assessment and Plan Assessment: Sepsis related to acute cholecystitis Leukocytosis Acute blood loss anemia Hyperkalemia Hypochloremic metabolic acidosis Seizure with history of epilepsy Sinus tachycardia and hypotension with history of atrial fibrillation Acute kidney injury Hyponatremia Abnormal urinalysis Delirium Resolved: Lactic acidosis Patient meets sepsis criteria with leukocytosis, tachycardia and positive source of infection. CT abdomen and pelvis confirms acute cholecystitis due to cystic stone. She was initially on Zosyn and vancomycin which is now discontinued. She is POD 1 laparoscopic cholecystectomy. Continue normal saline at 75 mL per hour. Follow blood culture. General surgery on board. Patient has worsening leukocytosis of 38.7 with neutrophilia. This is likely related to cholecystitis also reactive from stress of surgery. Plans to repeat CBC tomorrow morning. Hemoglobin 10.3. Likely related to acute blood loss from surgery. Plans to rep eat CBC tomorrow morning. Potassium 5.2. Likely related to worsening kidney function. Plans to repeat BMP STAT and tomorrow morning. Nephrology consulted. Chloride 97, bicarbonate 18. Likely related to dehydration. Repeat lactic acid negative. Continue IV hydration as above. Repeat BMP tomorrow morning. Guardian reports seizure yesterday morning prior to receiving home antiepileptic medication. We will restart Lamictal, Keppra, Trileptal. Patient will be placed on seizure precaution and seizure pads. EKG shows sinus tachycardia. This is likely related to sepsis and pain. Echocardiogram shows EF 60-65%. Continue verapamil for rate control. Digoxin held for hypotension, levels ordered for tomorrow. She is not on any anticoagulation at this time due to fall risk. Continue telemetry monitoring. Follow cardiology consultation. Creatinine 2.81. Likely combination of prerenal from sepsis, possible toxicity from vancomycin? Continue normal saline at 75 mL per hour. Avoid nephrotoxins. Repeat BMP tomorrow morning. Follow nephrology consultation. Sodium of 128 likely related to dehydration. IV hydration as above. Repeat BMP tomorrow morning. Urinalysis positive for nitrite and leukocyte esterase. Initially on Zosyn, started on Rocephin today. Follow urine culture. Restart Geodon for delirium. DVT prophylaxis: [SCD boots] Discussed with: [Patient, sister and guardian] Anticipated discharge: [2-3 days] Anticipated discharge place: [Home versus [facility]] A total of [35] minutes was spent on the care of this complex patient more than 50% of the time was spent in counseling and care coordination. Patient's PCP is Dr. Hernandez. Her decision-maker is Karen who was guardian and sister. Patient is full code. Thank you for this consult. Please call [facility] with any additional questions or concerns.
[2020-01-22 14:07] LABS: Calcium 8.3 mg/dL (8.4-10.2); Potassium 5.3 mmol/L (3.5-5.1)
[2020-01-22] MEDS: SODIUM CHLORIDE 0.9% 1,000 ML IV SCH (16:52)
[2020-01-22] MEDS: ASPIRIN 81 MG PO SCH (17:31)
[2020-01-22 20:50] LABS: Calcium 8.4 mg/dL (8.4-10.2); Potassium 4.5 mmol/L (3.5-5.1)
[2020-01-22] MEDS: CLOTRIMAZOLE 1% CREAM 15 GM TUBE TOPICAL SCH (22:07)
[2020-01-23] MEDS: SODIUM CHLORIDE 0.9% 1,000 ML IV SCH ×2 (00:07→15:24)
--- NOTE | 2020-01-23 03:30 | XR ---
EXAMINATION TYPE: XR chest 1V DATE OF EXAM: 01/23/2020 COMPARISON: 01/21/2020 HISTORY: Hypoxemia TECHNIQUE: FINDINGS: Portable upright view of the chest shows some patchy atelectasis in both lower lobes. There is elevated right diaphragm. There is no gross heart failure. There are chest leads. IMPRESSION: Bilateral patchy atelectasis unchanged compared to recent exam. No heart failure seen.
[2020-01-23] MEDS: lamoTRIgine 100 MG TAB PO SCH ×3 (07:59→19:57)
[2020-01-23] MEDS: levETIRAcetam 500 MG TAB PO SCH ×2 (07:59→19:50)
[2020-01-23] MEDS: SERTRALINE 50 MG TAB PO SCH (07:59)
[2020-01-23] MEDS: DOCUSATE 100 MG CAP PO SCH (07:59)
[2020-01-23] MEDS: OXcarbazepine 300 MG TAB PO SCH ×2 (07:59→19:51)
[2020-01-23] MEDS: ZIPRASIDONE 80 MG CAP PO SCH ×2 (08:00→19:51)
[2020-01-23 08:23] LABS: HCT 29.6 % (34.0-46.0); HGB 9.4 gm/dL (11.4-16.0); MCH 28.6 pg (25.0-35.0); MCHC 31.7 g/dL (31.0-37.0); MCV 90.2 fL (80.0-100.0); Platelet Count 236 k/uL (150-450); RBC 3.28 m/uL (3.80-5.40); RDW 14.5 % (11.5-15.5); WBC 25.4 k/uL (3.8-10.6)
[2020-01-23 08:29] LABS: Calcium 8.5 mg/dL (8.4-10.2); Magnesium 1.6 mg/dL (1.6-2.3); Potassium 4.5 mmol/L (3.5-5.1)
[2020-01-23] MEDS ORDERED: PIPERACILLIN-TAZOBACTAM 3.375 GM in SODIUM CHLORIDE 0.9% 100 ML IVPB SCH (09:00)
[2020-01-23 11:48] LABS: Digoxin 1.5 ng/mL
[2020-01-23] MEDS: MAGNESIUM SULFATE-D5W PMX 1 GM in DEXTROSE/WATER 1 100ML.BAG IVPB SCH ×2 (11:57→13:44)
[2020-01-23] MEDS: HYDROmorphone 0.5 MG/0.5 ML SYRINGE IVP PRN ×2 (12:05→22:22)
--- NOTE | 2020-01-23 12:22 | P.PN ---
Subjective HISTORY OF PRESENTING ILLNESS This is a pleasant 64-year-old female past medical history significant for paroxysmal atrial fibrillation on long-term anticoagulation secondary to frequent falls, hypertension, seizure disorder, schizoaffective disorder and intellectual disability. Her sister is her guardian and is at the bedside. She does not follow regularly in the office with a wirer street light. She underwent laparoscopic cholecystectomy, POD #2. Blood pressure today 111/65 heart rate 106 afebrile and maintaining oxygen saturation nasal cannula. This morning a room air saturation revealed hypoxia with saturation of 83%. Laboratory data reviewed, WBC 25.4, hemoglobin 9.4, platelets 236, sodium 132, potassium 4.5, creatinine 2.73, magnesium 1.6 and digoxin 1.5. Chest x-ray reveals bilateral patchy atelectasis unchanged from previous. No overt heart failure noted. PHYSICAL EXAMINATION CONSTITUTIONAL: No apparent distress. HEENT: Head is normocephalic. Pupils are equal, round. Sclerae anicteric. Mucous membranes of the mouth are moist. No JVD. No carotid bruit. CHEST EXAMINATION: Lungs are clear to auscultation. No chest wall tenderness is noted on palpation or with deep breathing. HEART EXAMINATION: Tachycardiac. Regular rate and rhythm. S1, S2 heard. Systolic ejection murmur at the left sternal border, no gallops or rub. EXTREMITIES: 2+ peripheral pulses, no lower extremity edema and no calf tenderness. ASSESSMENT Abdominal pain with evidence of cholecystitis, POD#1 laparoscopic cholecystectomy Hyperkalemia Acute kidney injury Hypotension, improved Hypoxia Leukocytosis Lactic acidosis Hypomagnesemia Hyponatremia Urinary tract infection Paroxysmal atrial fibrillation not on long-term anti-coagulation secondary to frequent falls Abnormal baseline EKG PLAN Blood pressures are better today, we will initiate a small dose of lopressor 12.5 mg BID for heart rate control. Continue to hold digoxin and verapamil. Repeat BMP and magnesium level in the morning. Further recommendations to follow based on clinical course. Nurse Practitioner note has been reviewed, I agree with a documented findings and plan of care. Patient was seen and examined. Objective - Vital Signs Vital signs: Vital Signs Temp 99.4 F 01/23/20 04:13 Pulse 106 H 01/23/20 04:13 Resp 18 01/23/20 04:13 BP 111/65 01/23/20 04:13 Pulse Ox 92 L 01/23/20 08:28 Intake & Output 01/22/20 01/23/20 01/23/20 18:59 06:59 18:59 Intake Total 1350 Output Total 350 1355 1000 Balance 1000 -1355 -1000 Intake: Oral 1350 Output: Drainage 30 30 Right Abdomen 30 30 Urine 979 [id number] 4169 Straight 320 Uretheral (Denise) 320 Post Void Residual 380 Other: Voiding Method Toilet Toilet Indwelling Catheter Bedside Commode Bedside Commode # Voids 0 - Labs CBC & Chem 7: 01/23/20 07:24 01/23/20 07:24 Labs: Abnormal Lab Results - Last 24 Hours (Table) 01/22/20 01/22/20 01/22/20 Range/Units 06:42 06:43 18:54 WBC (3.8-10.6) k/uL RBC (3.80-5.40) m/uL Hgb (11.4-16.0) gm/dL Hct (34.0-46.0) % Sodium 128 L 127 L (137-145) mmol/L Potassium 5.3 H (3.5-5.1) mmol/L Chloride 97 L 94 L (98-107) mmol/L Carbon Dioxide 19 L 19 L (22-30) mmol/L BUN 30 H 38 H (7-17) mg/dL Creatinine 2.82 H 2.93 H (0.52-1.04) mg/dL Calcium 8.3 L (8.4-10.2) mg/dL Magnesium 1.3 L (1.6-2.3) mg/dL 01/23/20 01/23/20 Range/Units 07:24 07:24 WBC 25.4 H (3.8-10.6) k/uL RBC 3.28 L (3.80-5.40) m/uL Hgb 9.4 L (11.4-16.0) gm/dL Hct 29.6 L (34.0-46.0) % Sodium 132 L (137-145) mmol/L Potassium (3.5-5.1) mmol/L Chloride (98-107) mmol/L Carbon Dioxide 18 L (22-30) mmol/L BUN 41 H (7-17) mg/dL Creatinine 2.73 H (0.52-1.04) mg/dL Calcium (8.4-10.2) mg/dL Magnesium (1.6-2.3) mg/dL Microbiology - Last 24 Hours (Table) 01/20/20 18:30 Urine Culture - Final Urine,Voided Escherichia coli 01/20/20 19:30 Blood Culture - Preliminary Blood No Growth after 48 hours
--- NOTE | 2020-01-23 13:17 | CONS ---
CONSULTATION REASON FOR CONSULT: Acute kidney injury. HISTORY OF PRESENT ILLNESS: Patient is a 64-year-old female who was admitted to the hospital on 01/20/2020 with abdominal pain. Patient was found to have acute cholecystitis. She was seen by General Surgery and did have laparoscopic cholecystectomy on 01/21/2020. She was found to have acute gangrenous cholecystitis. It is difficult to obtain history from the patient. Her creatinine was 1.48 on initial admission. It was up to 2.93 yesterday and today it that it is at 2.7. Review of previous labs show serum creatinine staying 1.2-1.5 mg/dL all the way back to 2018. Patient had been on vancomycin which is now discontinued. She is currently maintained on IV fluids and she has been voiding currently with an indwelling Denise catheter. A postvoid residual was 380 mL started. Patient has been confused. Blood pressures have been on the lower side with systolic in the 80s on 01/21/2020. PAST MEDICAL HISTORY: Significant for hypertension, atrial fibrillation, pneumonia, history of seizure disorder, vertigo, history of UTI and bacteremia in September of 2016. SOCIAL HISTORY: Negative for smoking, drug abuse or alcohol abuse. MEDICATIONS: Prior to admission included aspirin, Trileptal, Zoloft, verapamil, Lanoxin, Colace, Keppra. ALLERGIES: None. REVIEW OF SYSTEMS: As per HPI. Other systems negative. PHYSICAL EXAMINATION: Patient is currently lying in bed. She is awake, she is not in any acute distress. She is not able to give me a detailed history. Blood pressure is 111/65, heart rate 106 per minute, patient is afebrile. Examination of the heart S1, S2. Examination of the lungs, bilateral breath sounds are heard. Abdomen is soft, nontender. There is mild bruising noted in the abdomen near the umbilicus. Examination of the lower extremities shows trace edema. 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 Patient had been moving all 4 extremities. She appears to be confused at times. LABS: Show sodium 132, potassium 4.5, chloride 101, CO2 is 18, BUN 41, creatinine 2.73, random vancomycin level 24 on 01/21. ASSESSMENT: 1. Acute kidney injury, acute tubular necrosis, nonoliguric secondary to hypotension, hypoperfusion. Blood pressure was as low as 84 mmHg on 01/21/2020 currently improved. There may be an element of urine retention as well. Currently patient has an indwelling Denise catheter which we will continue. I will continue with the IV fluids as well. Urinalysis on initial admission showed suggestion of urinary tract infection and urine culture did grow E coli. 2. Escherichia coli urinary tract infection, maintained on antibiotics. 3. Status post laparoscopic cholecystectomy for acute gangrenous cholecystitis. 4. Hyponatremia which is hypovolemic, currently improved. 5. Mild hyperkalemia, now improved associated mostly with acute kidney injury. PLAN: Continue off vancomycin. Continue with normal saline. Continue with Denise catheter. Avoid hypotension. Currently blood pressure is improved. However, if it remains low, I will add midodrine, repeat labs in a.m. Thank you for this consultation. Will continue to follow the patient with you during her hospitalization. MMODL / IJN: [id number] /
[2020-01-23] MEDS: METOPROLOL TARTRATE 12.5 MG TAB PO SCH ×2 (13:45→19:51)
[2020-01-23] MEDS ORDERED: bisacodyL 5 MG TABLET.DR PO PRN (13:58)
--- NOTE | 2020-01-23 13:59 | P.PN ---
Subjective Progress Note Date: 01/23/20 (delayed charting seen at 0845) Principal diagnosis: abdominal pain Patient is a 64-year-old female with a history of A. fib, hypertension, and seizure disorder who presented to the hospital with complaints of right upper quadrant pain. She also was noted to have a breakthrough seizure. Her CT showed evidence of hydrophilic gallbladder and thickened gallbladder wall and she ultimately underwent a cholecystectomy on 01/20. She also has been found have an ESBL E. coli UTI, urinary retention requiring Denise catheter, and acute renal insufficiency. Patient seen and examined at bedside. She said yes to all questions answered including pain, nausea, vomiting, shortness of breath, constipation, and diarrhea. She does appear to be comfortable and pain-free. Sister updated at approximately 1:30 PM in the room. Objective - Vital Signs Vital signs: Vital Signs Temp 99.4 F 01/23/20 04:13 Pulse 106 H 01/23/20 04:13 Resp 18 01/23/20 04:13 BP 111/65 01/23/20 04:13 Pulse Ox 92 L 01/23/20 08:28 Intake & Output 01/22/20 01/23/20 01/23/20 18:59 06:59 18:59 Intake Total 1350 Output Total 350 1355 1000 Balance 1000 -1355 -1000 Intake: Oral 1350 Output: Drainage 30 30 Right Abdomen 30 30 Urine 003 111 8254 Straight 320 Uretheral (Denise) 320 Post Void Residual 380 Other: Voiding Method Toilet Toilet Indwelling Catheter Bedside Commode Bedside Commode # Voids 0 - Exam General: ill-appearing no distress, appears at stated age Derm: warm, dry Head: atraumatic, normocephalic, symmetric Eyes: EOMI, no lid lag, anicteric sclera Mouth: no lip lesion, mucus membranes moist Cardiovascular: S1S2 reg, no murmur, positive posterior tibial pulse bilateral, Lungs: CTA bilateral, no rhonchi, no rales , no accessory muscle use Abdominal: soft, slightly distended, tender to palpation in right upper quadrant, no guarding, no appreciable organomegaly Ext: no gross muscle atrophy, no edema, no contractures Neuro: CN II-XI grossly intact, no focal neuro deficits Psych: Awake, alert, oriented to self, flat affect - Labs CBC & Chem 7: 01/23/20 07:24 01/23/20 07:24 Labs: Abnormal Lab Results - Last 24 Hours (Table) 01/22/20 01/22/20 01/23/20 Range/Units 06:43 18:54 07:24 WBC (3.8-10.6) k/uL RBC (3.80-5.40) m/uL Hgb (11.4-16.0) gm/dL Hct (34.0-46.0) % Sodium 128 L 127 L 132 L (137-145) mmol/L Potassium 5.3 H (3.5-5.1) mmol/L Chloride 97 L 94 L (98-107) mmol/L Carbon Dioxide 19 L 19 L 18 L (22-30) mmol/L BUN 30 H 38 H 41 H (7-17) mg/dL Creatinine 2.82 H 2.93 H 2.73 H (0.52-1.04) mg/dL Calcium 8.3 L (8.4-10.2) mg/dL 01/23/20 Range/Units 07:24 WBC 25.4 H (3.8-10.6) k/uL RBC 3.28 L (3.80-5.40) m/uL Hgb 9.4 L (11.4-16.0) gm/dL Hct 29.6 L (34.0-46.0) % Sodium (137-145) mmol/L Potassium (3.5-5.1) mmol/L Chloride (98-107) mmol/L Carbon Dioxide (22-30) mmol/L BUN (7-17) mg/dL Creatinine (0.52-1.04) mg/dL Calcium (8.4-10.2) mg/dL Microbiology - Last 24 Hours (Table) 01/20/20 18:30 Urine Culture - Final Urine,Voided Escherichia coli 01/20/20 19:30 Blood Culture - Preliminary Blood No Growth after 48 hours Assessment and Plan Assessment: Acute cholecystitis with sepsis status post laparoscopic cholecystectomy -Surgery recommendations appreciated -On full diet -Pain control -Antiemetics Postop constipation -Start bowel regimen Acute kidney injury on chronic kidney disease stage III/IV with urinary retention requiring Denise catheter, metabolic acidosis -Nephrology recommendations -IV fluids -Avoid nephrotoxic agents -Renal dose Zosyn -strict I's and O's Hyponatremia -Likely is secondary to poor solute intake -IV fluids -Improving -Repeat basic metabolic profile in a.m. ESBL E. coli urinary tract infection Present on admission Not catheter associated -Consult infectious disease, change from Rocephin to Zosyn -Sister would hope for outpatient once daily IV antibiotics as patient has had this in the past through [facility] Atrial fibrillation -[place] small -No anticoagulation secondary to frequent falls -Started on beta rohan by cardiology -Monitor blood pressure closely Acute blood loss anemia -Follow CBC -Check iron studies Hypomagnesemia -Replaced -Repeat in a.m. Breakthrough seizure -Continue with Seb Mercado -Seizure precautions Resolved: Hyperkalemia Toxic metabolic encephalopathy DVT prophylaxis: SCDs Discussed with: patient, nursing, DPOA sister Anticipated discharge: 3-[address]: home A total of 45 minutes was spent on the care of this complex patient more than 50% of the time was spent in counseling and care coordination.
[2020-01-23] MEDS: ERTAPENEM 0.5 GM in SODIUM CHLORIDE 0.9% 50 ML IVPB SCH (15:23)
[2020-01-23] MEDS: ASPIRIN 81 MG PO SCH (16:46)
--- NOTE | 2020-01-24 00:21 | P.CONS ---
History of Present Illness - Reason for Consult Consult date: 01/23/20 Cholecystitis and ESBL E. coli urinary tract infection Requesting physician: Marilou Lin - Chief Complaint Abdominal pain 1 day - History of Present Illness Patient is a 64-year-old female with developmental delay in this patient who was brought into the hospital at [facility] on 01/20/2020 with a one-day history of abdominal pain patient been has been mostly on the right side there was some question of nausea but no vomiting or any diarrhea, patient on presentation hospital was afebrile and remained to be afebrile patient did have elevated white count 25,000, patient did have CT of abdominal pelvis that was suggestive of acute cholecystitis patient was taken to the OR on 01/07/2020 and is status post cholecystectomy noticed to have gangrenous cholecystitis at the time of surgery she did not have any OR cultures, patient did have a positive UA she was started on Rocephin yesterday with urine culture had been finalized ESBL E. coli patient antibiotic was switched over to Zosyn today and infectious disease was consulted for further management of antibiotic therapy all of the information has been obtained from review of the chart as the patient unable to provide any reliable history Review of Systems Positive points has been mentioned in HPI complete review could not be obtained because of his underlying mental status Past Medical History Past Medical History: Atrial Fibrillation, Hypertension, Pneumonia, Seizure Disorder Additional Past Medical History / Comment(s): Vertigo, paroxysmal atrial fibrillation, moderate intellectual disability, SEPTEMBER 2016 UTI AND BACTEREMIA History of Any Multi-Drug Resistant Organisms: ESBL Year Discovered:: 01/20/20 MDRO Source:: urine - E coli ESBL Past Surgical History: No Surgical Hx Reported Additional Past Surgical History / Comment(s): hx picc line-since removed Past Anesthesia/Blood Transfusion Reactions: No Reported Reaction Additional Past Anesthesia/Blood Transfusion Reaction / Comm: career development facilitator says not that she knows of Past Psychological History: Anxiety, Schizoaffective Disorder Additional Psychological History / Comment(s): OCD, auditory hallucinations, needs reassurance that she is ok. depressive type schizoaffective. Single. Has a sister as her guardian. Does have 24-hour care in her apartment. No animals in the apartment. No travel history Smoking Status: Never smoker Past Alcohol Use History: None Reported Additional Past Alcohol Use History / Comment(s): Patient is a lifelong nonsmoker, no illicit drug use, alcohol use. Patient lives in her own apartment at [facility] has a room mate and 24-hour care. There are no pets in the home. No recent travel.has walker, rollator, cane showr chair if needed Past Drug Use History: None Reported - Past Family History Father Family Medical History: Cancer Additional Family Medical History / Comment(s): lymphoma Mother Family Medical History: AFIB, Congestive Heart Failure (CHF) Medications and Allergies Home Medications Medication Instructions Recorded Confirmed Type Aspirin 325 mg PO DAILY@169902/13/14 01/20/20 History OXcarbazepine [Trileptal] 300 mg PO BID@699,199902/13/14 01/20/20 History Sertraline [Zoloft] 150 mg PO DAILY@69902/13/14 01/20/20 History Verapamil HCl [Verapamil ER] 240 mg PO DAILY@69902/13/14 01/20/20 History Ziprasidone [Geodon] 80 mg PO BID@07,199902/13/14 01/20/20 History lamoTRIgine [LaMICtal] 200 mg PO TID@0700,1400,199902/13/14 01/20/20 History Cranberry Fruit Extract [Cranberry] 1,000 mg PO DAILY@169901/19/18 01/20/20 History Clotrimazole [Lotrimin AF] 1 applic TOPICAL HS@199911/26/18 01/20/20 History Digoxin [Lanoxin] 125 mcg PO DAILY@07,199911/26/18 01/20/20 History Docusate [Colace] 100 mg PO DAILY@69911/26/18 01/20/20 History levETIRAcetam [Keppra] 500 mg PO BID@07,199901/20/20 01/20/20 History Allergies Allergy/AdvReac Type Severity Reaction Status Date / Time No Known Allergies Allergy Verified 01/20/20 21:20 Physical Exam Vitals: Vital Signs Temp Pulse Resp BP Pulse Ox 01/23/20 13:45 97.5 F L 97 18 95/53 92 L 01/23/20 08:28 92 L 01/23/20 08:25 83 L 01/23/20 04:13 99.4 F 106 H 18 111/65 95 01/23/20 03:52 107 H 20 101/58 96 01/23/20 03:37 108 H 20 96/53 96 01/23/20 02:59 113 H 20 125/72 93 L 01/23/20 02:55 91 L 01/23/20 02:50 98.1 F 122 H 24 155/70 79 L 01/22/20 20:35 98.0 F 108 H 14 112/70 91 L 01/22/20 16:00 88 16 Intake and Output 01/23/20 01/23/20 01/23/20 06:59 14:59 22:59 Intake Total 800 Output Total 710 1000 Balance -710 -200 Intake: Intake, IV Titration 800 Amount Magnesium Sulfate-D5w Pmx 100 1 gm In Dextrose/Water 1 100ml.bag @ 100 mls/hr IVPB Q1H SUSIE Rx#: [id number] Piperacillin-Tazobactam 3 100 .375 gm In Sodium Chloride 0.9% 100 ml @ 25 mls/hr IVPB Q12HR SUSIE Rx #:[id number] Sodium Chloride 0.9% 1, 600 000 ml @ 75 mls/hr IV . [id number] SUSIE Rx#:[id number] Output: Drainage 10 Right Abdomen 10 Urine 320 1000 Uretheral (Denise) 320 Post Void Residual 380 Other: Voiding Method Indwelling Catheter GENERAL DESCRIPTION: Middle-aged female lying in bed, no distress. No tachypnea or accessory muscle of respiration use. HEENT: Shows Pallor , no scleral icterus. Oral mucous membrane is dry. No pharyngeal erythema or thrush NECK: Trachea central, no thyromegaly. LUNGS: Unlabored breathing. Clear to auscultation anteriorly. No wheeze or crackle. HEART: S1, S2, regular rate and rhythm. No loud murmur ABDOMEN: Soft, mild right upper quadrant tenderness , guarding or rigidity, no organomegaly EXTREMITIES: No edema of feet. SKIN: No rash, no masses palpable. NEUROLOGICAL: The patient is awake, alert, however nonverbal and unable to determine orientation Results CBC & Chem 7: 01/23/20 07:24 01/23/20 07:24 Labs: Abnormal Lab Results - Last 24 Hours (Table) 01/22/20 01/23/20 01/23/20 Range/Units 18:54 07:24 07:24 WBC 25.4 H (3.8-10.6) k/uL RBC 3.28 L (3.80-5.40) m/uL Hgb 9.4 L (11.4-16.0) gm/dL Hct 29.6 L (34.0-46.0) % Sodium 127 L 132 L (137-145) mmol/L Chloride 94 L (98-107) mmol/L Carbon Dioxide 19 L 18 L (22-30) mmol/L BUN 38 H 41 H (7-17) mg/dL Creatinine 2.93 H 2.73 H (0.52-1.04) mg/dL Microbiology - Last 24 Hours (Table) 01/20/20 18:30 Urine Culture - Final Urine,Voided Escherichia coli 01/20/20 19:30 Blood Culture - Preliminary Blood No Growth after 48 hours Assessment and Plan Assessment: 1- patient presented to hospital with acute abdominal pain in this patient has been diagnosed with acute gangrenous cholecystitis status post cholecystectomy with no OR cultures , however the patient is colonized with multidrug resistant pathogen in view of her positive urine culture with ESBL 2- Patient with a positive UA and urine culture positive for ESBL E. coli unable to get any lab history from this patient see if she is symptomatic from her UTI or not (1) UTI due to extended-spectrum beta lactamase (ESBL) producing Escherichia coli Current Visit: Yes Status: Acute Code(s): N39.0 - URINARY TRACT INFECTION, SITE NOT SPECIFIED; B96.29 - OTH ESCHERICHIA COLI THE CAUSE OF DISEASES CLASSD ELSWHR; Z16.12 - EXTENDED SPECTRUM BETA LACTAMASE (ESBL) RESISTANCE SNOMED Code(s): 543965647 (2) Cholecystitis, acute Current Visit: Yes Status: Acute Code(s): K81.0 - ACUTE CHOLECYSTITIS SNOMED Code(s): 86051071 Plan: 1- discontinue Zosyn 2 -we will start the patient on Invanz 500 mg daily dose congested to the kidney function 3- she will likely need a PICC line and a short course of IV Invanz in outpatient setting We will follow on clinical condition and cultures to further adjust medication if needed Thank you for this consultation will follow this patient with you Time with Patient: Greater than 30
[2020-01-24] MEDS: CLOTRIMAZOLE 1% CREAM 15 GM TUBE TOPICAL SCH (02:30)
[2020-01-24] MEDS: SODIUM CHLORIDE 0.9% 1,000 ML IV SCH ×2 (05:55→19:46)
[2020-01-24] MEDS: DOCUSATE 100 MG CAP PO SCH (07:44)
[2020-01-24] MEDS: lamoTRIgine 100 MG TAB PO SCH ×3 (07:45→19:42)
[2020-01-24] MEDS: METOPROLOL TARTRATE 12.5 MG TAB PO SCH ×2 (07:45→19:43)
[2020-01-24] MEDS: ZIPRASIDONE 80 MG CAP PO SCH ×2 (07:46→19:43)
[2020-01-24] MEDS: OXcarbazepine 300 MG TAB PO SCH ×2 (07:46→19:43)
[2020-01-24] MEDS: SERTRALINE 50 MG TAB PO SCH (07:46)
[2020-01-24] MEDS: ERTAPENEM 0.5 GM in SODIUM CHLORIDE 0.9% 50 ML IVPB SCH (07:57)
[2020-01-24] MEDS: levETIRAcetam 500 MG TAB PO SCH ×2 (07:57→19:43)
[2020-01-24 08:09] LABS: Hypochromasia Slight; MCH 28.3 pg (25.0-35.0); MCHC 31.2 g/dL (31.0-37.0); Mean Platelet Volume 6.9; Platelet Count 201 k/uL (150-450); RBC 2.75 m/uL (3.80-5.40); RDW 14.5 % (11.5-15.5); WBC 16.3 k/uL (3.8-10.6)
[2020-01-24 08:19] LABS: Albumin 2.4 g/dL (3.5-5.0); Calcium 8.4 mg/dL (8.4-10.2); Magnesium 2.7 mg/dL (1.6-2.3); Potassium 4.4 mmol/L (3.5-5.1); Total Bilirubin 0.2 mg/dL (0.2-1.3)
[2020-01-24 08:35] LABS: HGB 7.8 gm/dL (11.4-16.0)
--- NOTE | 2020-01-24 12:20 | PN ---
PROGRESS NOTE Patient is seen for followup for acute kidney injury. She is currently maintained on IV fluids. Serum creatinine has improved to 2.5 from 2.7 mg/dL. Previous creatinine 1.48. She does have good urine output. Currently, patient has an indwelling Denise catheter, 24 hour urine output of about 2.3 L. Patient's blood pressure was also significantly low with systolic in the 80s on 01/21/2020. Currently improved. She has been started on midodrine. PHYSICAL EXAMINATION: On examination today, patient is sitting out of bed. She looks much better than yesterday. Blood pressure was 96/59, heart rate 78 per minute, she is afebrile. Examination of the heart S1, S2. Examination of the lungs, bilateral breath sounds are heard. Abdomen is soft, nontender. Examination of the lower extremities shows no significant edema. 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 Patient moving all 4 extremities. LABS: Show sodium 139, potassium 4.4, chloride 108, BUN 41, creatinine 2.5, hemoglobin 7.8 g/dL. ASSESSMENT: 1. Acute kidney injury associated with hypotension hypoperfusion, currently nonoliguric. There was an element of possible urine retention as well, currently with indwelling Denise catheter. Patient was on vancomycin also, which is now discontinued. Continue to maintain patient on IV fluids and avoid nephrotoxic agents. Continue with midodrine. Repeat labs in a.m. 2. ESBL E coli urinary tract infection. 3. Chronic kidney disease. Previous creatinine about 1.4 on 01/20/2020. Otherwise, also up to 1.6 and 1.8 mg/dL in August of 2019. Etiology is likely nephrosclerosis, UA currently has protein, but patient also has a urinary tract infection. 4. Anemia postoperatively, currently being followed, some area of bruising was noted around the umbilical area. Continue to monitor for now. PLAN: Continue normal saline. Continue with midodrine. Repeat labs in a.m. Avoid nephrotoxic medications. MMODL / IJN: [id number] /
[2020-01-24 12:38] LABS: HCT 26.2 % (34.0-46.0); HGB 8.2 gm/dL (11.4-16.0); Hypochromasia Moderate; MCH 28.3 pg (25.0-35.0); MCHC 31.4 g/dL (31.0-37.0); MCV 90.1 fL (80.0-100.0); Mean Platelet Volume 7.5; Platelet Count 226 k/uL (150-450); RBC 2.91 m/uL (3.80-5.40); RDW 14.7 % (11.5-15.5); WBC 15.6 k/uL (3.8-10.6)
[2020-01-24] MEDS: MIDODRINE 5 MG TAB PO SCH ×2 (13:24→17:46)
--- NOTE | 2020-01-24 13:31 | P.PN ---
Subjective HISTORY OF PRESENTING ILLNESS This is a pleasant 64-year-old female past medical history significant for paroxysmal atrial fibrillation on long-term anticoagulation secondary to frequent falls, hypertension, seizure disorder, schizoaffective disorder and intellectual disability. Her sister is her guardian and is at the bedside. She does not follow regularly in the office with a back hoe operator. She underwent laparoscopic cholecystectomy, POD #3. She is seen and examined sitting up in the chair. She looks much more comfortable today than she has been all admission. She is smiling and conversing. She denies chest pain, shortness of breath, dizziness or palpitations. Blood pressure 104/55, heart rate 83 afebrile maintaining oxygen saturation on nasal cannula.laboratory data reviewed, WBC 15.6, hemoglobin 8.2, platelets 226, sodium 139, potassium 4.4, creatinine 2.51 and magnesium 2.7. Currently maintained on Lopressor 12.5 mg twice a day for rate control. Telemetry tracings reveal she is maintaining sinus mechanism. PHYSICAL EXAMINATION CONSTITUTIONAL: No apparent distress. HEENT: Head is normocephalic. Pupils are equal, round. Sclerae anicteric. Mucous membranes of the mouth are moist. No JVD. No carotid bruit. CHEST EXAMINATION: Lungs are clear to auscultation. No chest wall tenderness is noted on palpation or with deep breathing. HEART EXAMINATION: Tachycardiac. Regular rate and rhythm. S1, S2 heard. Systolic ejection murmur at the left sternal border, no gallops or rub. EXTREMITIES: 2+ peripheral pulses, no lower extremity edema and no calf tenderness. ASSESSMENT Abdominal pain with evidence of cholecystitis, POD#1 laparoscopic cholecystectomy Hyperkalemia Acute kidney injury Hypotension, improved Hypoxia Leukocytosis Lactic acidosis Hypomagnesemia Hyponatremia Urinary tract infection Paroxysmal atrial fibrillation not on watermaster anti-coagulation secondary to frequent falls Abnormal baseline EKG PLAN Stable on current medical regimen from a cardiac perspective. Continue lopressor for rate control. Nurse Practitioner note has been reviewed, I agree with a documented findings and plan of care. Patient was seen and examined. Objective - Vital Signs Vital signs: Vital Signs Temp 98.4 F 01/24/20 05:00 Pulse 83 01/24/20 11:28 Resp 20 01/24/20 11:28 BP 104/55 01/24/20 11:28 Pulse Ox 97 01/24/20 11:28 Intake & Output 01/23/20 01/24/20 01/24/20 18:59 06:59 18:59 Intake Total 800 350 360 Output Total 1000 1320 700 Balance -200 -970 -340 Intake: Intake, IV Titration 800 Amount Magnesium Sulfate-D5w Pmx 100 1 gm In Dextrose/Water 1 100ml.bag @ 100 mls/hr IVPB Q1H [facility] Rx#: [id number] Piperacillin-Tazobactam 3 100 .375 gm In Sodium Chloride 0.9% 100 ml @ 25 mls/hr IVPB Q12HR [facility] Rx #:[id number] Sodium Chloride 0.9% 1, 600 000 ml @ 75 mls/hr IV . [id number] [facility] Rx#:[id number] Oral 350 360 Output: Drainage 20 Right Abdomen 20 Urine 1000 1300 700 Other: Voiding Method Indwelling Catheter Indwelling Catheter Indwelling Catheter - Labs CBC & Chem 7: 01/24/20 12:19 01/24/20 07:20 Labs: Abnormal Lab Results - Last 24 Hours (Table) 01/24/20 01/24/20 01/24/20 Range/Units 07:20 07:20 12:19 WBC 16.3 H 15.6 H (3.8-10.6) k/uL RBC 2.75 L 2.91 L (3.80-5.40) m/uL Hgb 7.8 L D 8.2 L (11.4-16.0) gm/dL Hct 25.0 L 26.2 L (34.0-46.0) % Chloride 108 H (98-107) mmol/L BUN 41 H (7-17) mg/dL Creatinine 2.51 H (0.52-1.04) mg/dL Magnesium 2.7 H (1.6-2.3) mg/dL Total Protein 5.0 L (6.3-8.2) g/dL Albumin 2.4 L (3.5-5.0) g/dL Microbiology - Last 24 Hours (Table) 01/20/20 19:30 Blood Culture - Preliminary Blood No Growth after 72 hours
--- NOTE | 2020-01-24 13:41 | P.PN ---
Subjective Progress Note Date: 01/24/20 Principal diagnosis: abdominal pain Patient is a 64-year-old female with a history of A. fib, hypertension, and seizure disorder who presented to the hospital with complaints of right upper quadrant pain. She also was noted to have a breakthrough seizure. Her CT showed evidence of hydrophilic gallbladder and thickened gallbladder wall and she ultimately underwent a cholecystectomy on 01/20. She also has been found have an ESBL E. coli UTI, urinary retention requiring Denise catheter, and acute renal insufficiency. She has been seen by ID and nephro who agreed with current plan of care. Patient seen and examined at bedside. Denies chest pain, SOB, or nausea. Pain is well controlled. Sister updated at approximately 1:20 PM in the room. Objective - Vital Signs Vital signs: Vital Signs Temp 98.4 F 01/24/20 05:00 Pulse 83 01/24/20 11:28 Resp 20 01/24/20 11:28 BP 104/55 01/24/20 11:28 Pulse Ox 97 01/24/20 11:28 Intake & Output 01/23/20 01/24/20 01/24/20 18:59 06:59 18:59 Intake Total 800 350 360 Output Total 1000 1320 1300 Balance -200 970 -940 Intake: Intake, IV Titration 800 Amount Magnesium Sulfate-D5w Pmx 100 1 gm In Dextrose/Water 1 100ml.bag @ 100 mls/hr IVPB Q1H [facility] Rx#: [id number] Piperacillin-Tazobactam 3 100 .375 gm In Sodium Chloride 0.9% 100 ml @ 25 mls/hr IVPB Q12HR [facility] Rx #:[id number] Sodium Chloride 0.9% 1, 600 000 ml @ 75 mls/hr IV . [id number] [facility] Rx#:[id number] Oral 350 360 Output: Drainage 20 Right Abdomen 20 Urine 1000 1300 1300 Other: Voiding Method Indwelling Catheter Indwelling Catheter Indwelling Catheter - Exam General: non-toxic, no distress, appears at stated age Derm: warm, dry Head: atraumatic, normocephalic, symmetric Eyes: EOMI, no lid lag, anicteric sclera Mouth: no lip lesion, mucus membranes moist Cardiovascular: S1S2 reg, no murmur, positive posterior tibial pulse bilateral, Lungs: CTA bilateral, no rhonchi, no rales , no accessory muscle use Abdominal: soft, slightly distended, nontender to palpation, no guarding, no appreciable organomegaly Ext: no gross muscle atrophy, no edema, no contractures Neuro: CN II-XI grossly intact, no focal neuro deficits Psych: Awake, alert, oriented to self and situation - Labs CBC & Chem 7: 01/24/20 12:19 01/24/20 07:20 Labs: Abnormal Lab Results - Last 24 Hours (Table) 01/24/20 01/24/20 01/24/20 Range/Units 07: 07:20 12:19 WBC 16.3 H 15.6 H (3.8-10.6) k/uL RBC 2.75 L 2.91 L (3.80-5.40) m/uL Hgb 7.8 L D 8.2 L (11.4-16.0) gm/dL Hct 25.0 L 26.2 L (34.0-46.0) % Chloride 108 H (98-107) mmol/L BUN 41 H (7-17) mg/dL Creatinine 2.51 H (0.52-1.04) mg/dL Magnesium 2.7 H (1.6-2.3) mg/dL Total Protein 5.0 L (6.3-8.2) g/dL Albumin 2.4 L (3.5-5.0) g/dL Microbiology - Last 24 Hours (Table) 01/20/20 19:30 Blood Culture - Preliminary Blood No Growth after 72 hours Assessment and Plan Assessment: Acute cholecystitis with sepsis status post lap cholecystectomy -Surgery recommendations appreciated -On regular diet -Pain control -Antiemetics Postop constipation -Start bowel regimen Acute kidney injury on chronic kidney disease stage III/IV with urinary retention requiring Denise catheter, metabolic acidosis -Nephrology recommendations -IV fluids -Avoid nephrotoxic agents -strict I's and O's ESBL E. coli urinary tract infection Present on admission Not catheter associated -ID recs appreciated: Cici Aguayo has signed off on midline or PICC if needed -will need outpatient IV abx Paroxysmal Atrial fibrillation -No anticoagulation secondary to frequent falls -Started on beta rohan by cardiology -Monitor blood pressure closely Acute blood loss anemia -Follow CBC -Iron studies pending Breakthrough seizure -Continue with Keppra, Lamictal -Seizure precautions Resolved: Hyperkalemia Toxic metabolic encephalopathy Hyponatremia, resolved Hypomagnesemia, resolved DVT prophylaxis: SCDs Discussed with: patient, nursing, DPOA sister and brother over the phone Anticipated discharge: 2-[address]: home, home health, IV ABX through [facility] A total of 35 minutes was spent on the care of this complex patient more than 50% of the time was spent in counseling and care coordination.
[2020-01-24 17:23] LABS: Ferritin 279.7 ng/mL (10.0-291.0)
[2020-01-24 17:31] LABS: % Iron Saturation 3.33 (12.00-45.00)
[2020-01-24] MEDS: HYDROmorphone 0.5 MG/0.5 ML SYRINGE IVP PRN (21:49)
--- NOTE | 2020-01-25 02:36 | PN ---
PROGRESS NOTE DATE OF SERVICE: 01/24/2020 REASON FOR FOLLOWUP: ESBL E coli urinary tract infection and acute gangrenous cholecystitis. INTERVAL HISTORY: The patient is currently afebrile. The patient is more awake and alert today. She is breathing comfortably. Denies having any chest pain or cough. Abdominal pain is currently controlled. No vomiting or any diarrhea. PHYSICAL EXAMINATION: Blood pressure 125/72 with a pulse of 85, temperature 97.9. She is 95% on 3 L nasal cannula. General description is a middle-aged female up in the chair in no distress. RESPIRATORY SYSTEM: Unlabored breathing, decreased breath sounds at bases. No wheeze. HEART: S1, S2. Regular rate and rhythm. ABDOMEN: Soft. Mildly distended. No guarding or rigidity. LABS: Hemoglobin is 8.2, white count 15.6, creatinine is 2.51. DIAGNOSTIC IMPRESSION AND PLAN: Patient with acute gangrenous cholecystitis, status post cholecystectomy, also with ESBL Escherichia coli urinary tract infection. Patient is covered with Invanz. Planning for a Midline, at least 2 weeks of IV antibiotic. Continue with supportive care. MMODL / IJN: [id number] /
[2020-01-25] MEDS: CLOTRIMAZOLE 1% CREAM 15 GM TUBE TOPICAL SCH (04:52)
[2020-01-25 07:32] LABS: HCT 23.3 % (34.0-46.0); HGB 7.2 gm/dL (11.4-16.0); Hypochromasia Slight; MCH 27.6 pg (25.0-35.0); MCHC 30.8 g/dL (31.0-37.0); MCV 89.5 fL (80.0-100.0); Platelet Count 198 k/uL (150-450); RDW 14.9 % (11.5-15.5)
[2020-01-25] MEDS: SERTRALINE 50 MG TAB PO SCH (07:50)
[2020-01-25] MEDS: MIDODRINE 5 MG TAB PO SCH ×3 (07:50→17:33)
[2020-01-25] MEDS: DOCUSATE 100 MG CAP PO SCH (07:50)
[2020-01-25] MEDS: lamoTRIgine 100 MG TAB PO SCH ×3 (07:50→19:48)
[2020-01-25] MEDS: METOPROLOL TARTRATE 12.5 MG TAB PO SCH ×2 (07:50→19:48)
[2020-01-25] MEDS: levETIRAcetam 500 MG TAB PO SCH ×2 (07:50→19:48)
[2020-01-25] MEDS: OXcarbazepine 300 MG TAB PO SCH ×2 (07:51→19:49)
[2020-01-25] MEDS: ZIPRASIDONE 80 MG CAP PO SCH ×2 (07:51→19:49)
[2020-01-25] MEDS: ERTAPENEM 0.5 GM in SODIUM CHLORIDE 0.9% 50 ML IVPB SCH (07:51)
[2020-01-25] MEDS: SODIUM CHLORIDE 0.9% 1,000 ML IV SCH (07:51)
[2020-01-25 07:57] LABS: Calcium 8.7 mg/dL (8.4-10.2); Potassium 4.5 mmol/L (3.5-5.1)
[2020-01-25] MEDS: SODIUM FERRIC GLUCONAT-SUCROSE 125 MG in SODIUM CHLORIDE 0.9% 100 ML IVPB SCH (08:39)
--- NOTE | 2020-01-25 09:28 | CT ---
EXAMINATION TYPE: CT abdomen pelvis wo con DATE OF EXAM: 01/25/2020 COMPARISON: CT abdomen pelvis 01/20/2020. HISTORY: Anemia post cholecystectomy CT DLP: 1002 mGycm Automated exposure control for dose reduction was used. TECHNIQUE: Helical acquisition of images was performed from the lung bases through the pelvis. Coron al and sagittal reformatted images were generated. FINDINGS: LUNG BASES: There is increased consolidative opacity with air bronchograms of the right lower lobe. M ild patchy airspace opacities of the left lower lobe. Small right pleural effusion. Cardiomegaly. Prashant cified coronary artery disease. LIVER/GB: The liver is not enlarged and normal in attenuation. Patient is status post cholecystectomy with right upper quadrant surgical drain distal tip in the gallbladder fossa. Mesenteric edema and i nflammatory stranding throughout the right upper quadrant is seen., With small amount of fluid within the gallbladder fossa as expected postoperatively. There is a 1.0 cm cholelithiasis persistently see n in what is likely remnant cystic duct (3:53). No intrahepatic or extrahepatic biliary ductal dilata tion. PANCREAS: No significant abnormality is seen. SPLEEN: No significant abnormality is seen. ADRENALS: No significant abnormality is seen. KIDNEYS: No hydronephrosis. Innumerable tiny calcifications of the renal cortex bilaterally, likely r elated to innumerable cysts demonstrated on 01/20/2020 contrast-enhanced CT examination. FREE AIR: No free air is visualized ABDOMINAL ADENOPATHY: Scattered likely reactive mesenteric quadrant lymph nodes are seen. REPRODUCTIVE ORGANS: Redemonstrated left adnexal 3.5 cm cyst. Trace pelvic free fluid. URINARY BLADDER: Incompletely distended with Denise catheter and internal focus of air. PELVIC ADENOPATHY: None visualized. OSSEOUS STRUCTURES: Degenerative changes of the visualized spine. BOWEL: No evidence of bowel obstruction. OTHER: Anasarca. IMPRESSION: 1. Status post cholecystectomy with right upper quadrant surgical drain distal tip in the gallbladde r fossa. Postoperative mesenteric edema and inflammatory stranding of the right upper quadrant. 2. Persistent 1.0 cm calculus of the remnant cystic duct. No intrahepatic or extrahepatic biliary du ctal dilatation. 3. Right lower lobe consolidative opacity and small right pleural effusion. Findings may represent a spiration pneumonia.
--- NOTE | 2020-01-25 11:50 | P.PN ---
Subjective HISTORY OF PRESENTING ILLNESS This is a pleasant 64-year-old female past medical history significant for paroxysmal atrial fibrillation on long-term anticoagulation secondary to frequent falls, hypertension, seizure disorder, schizoaffective disorder and intellectual disability. Her sister is her guardian and is at the bedside. She does not follow regularly in the office with a mail carriers supervisor. She underwent laparoscopic cholecystectomy, POD #4. She is seen and examined sitting up in the chair. She is complaining of discomfort in the left upper abdomen. No chest pain, dizziness, palpitations or shortness of breath. Blood pressure 110/61 heart rate 74 afebrile maintaining oxygen saturation on nasal cannula. Laboratory data reviewed, WBC 12, hemoglobin 7.2, platelets 140, sodium 4.5, creatinine 2.29. Currently maintained on Lopressor 12.5 mg twice a day. PHYSICAL EXAMINATION CONSTITUTIONAL: No apparent distress. HEENT: Head is normocephalic. Pupils are equal, round. Sclerae anicteric. Mucous membranes of the mouth are moist. No JVD. No carotid bruit. CHEST EXAMINATION: Lungs are clear to auscultation. No chest wall tenderness is noted on palpation or with deep breathing. HEART EXAMINATION: Tachycardiac. Regular rate and rhythm. S1, S2 heard. Systolic ejection murmur at the left sternal border, no gallops or rub. EXTREMITIES: 2+ peripheral pulses, no lower extremity edema and no calf tenderness. ASSESSMENT Abdominal pain with evidence of cholecystitis, POD#4 laparoscopic cholecystectomy Hyperkalemia Acute kidney injury Hypotension, improved Hypoxia Leukocytosis Lactic acidosis Hypomagnesemia Hyponatremia Urinary tract infection Paroxysmal atrial fibrillation not on intermodal dispatcher anti-coagulation secondary to frequent falls Abnormal baseline EKG PLAN Stable on current medical regimen from a cardiac perspective. Continue lopressor for rate control. May increase dose as needed for hypertension or tachycardia. We will follow along as needed, please feel free to call with further questions or concerns. Follow-up in the office with Dr. Dewitt in 2 weeks. Nurse Practitioner note has been reviewed, I agree with a documented findings and plan of care. Patient was seen and examined. Objective - Vital Signs Vital signs: Vital Signs Temp 99.0 F 01/25/20 11:20 Pulse 74 01/25/20 11:20 Resp 20 01/25/20 11:20 BP 110/61 01/25/20 11:20 Pulse Ox 99 01/25/20 11:20 Intake & Output 01/24/20 01/25/20 01/25/20 18:59 06:59 18:59 Intake Total 1010 1500 Output Total 1909 2004 610 Balance -448 -495 -965 Intake: Intake, IV Titration 650 300 Amount Ertapenem 0.5 gm In 50 Sodium Chloride 0.9% 50 ml @ 100 mls/hr IVPB DAILY [facility] Rx#:[id number] Sodium Chloride 0.9% 1, 600 300 000 ml @ 75 mls/hr IV . [id number] [facility] Rx#:[id number] Oral 360 1200 Output: Drainage 10 5 10 Right Abdomen 10 5 10 Urine 1900 2000 600 Other: Voiding Method Indwelling Catheter Indwelling Catheter Indwelling Catheter - Labs CBC & Chem 7: 01/25/20 06:55 01/25/20 06:55 Labs: Abnormal Lab Results - Last 24 Hours (Table) 01/24/20 01/24/20 01/25/20 Range/Units 07:20 12:19 06:55 WBC 15.6 H 12.0 H (3.8-10.6) k/uL RBC 2.91 L 2.60 L (3.80-5.40) m/uL Hgb 8.2 L 7.2 L (11.4-16.0) gm/dL Hct 26.2 L 23.3 L (34.0-46.0) % MCHC 30.8 L (31.0-37.0) g/dL Chloride (98-107) mmol/L Carbon Dioxide (22-30) mmol/L BUN (7-17) mg/dL Creatinine (0.52-1.04) mg/dL Iron 6 L (50-170) ug/dL TIBC 180 L (228-460) ug/dL % Saturation 3.33 L (12.00-45.00) 01/25/20 Range/Units 06:55 WBC (3.8-10.6) k/uL RBC (3.80-5.40) m/uL Hgb (11.4-16.0) gm/dL Hct (34.0-46.0) % MCHC (31.0-37.0) g/dL Chloride 111 H (98-107) mmol/L Carbon Dioxide 21 L (22-30) mmol/L BUN 44 H (7-17) mg/dL Creatinine 2.29 H (0.52-1.04) mg/dL Iron (50-170) ug/dL TIBC (228-460) ug/dL % Saturation (12.00-45.00) Microbiology - Last 24 Hours (Table) 01/20/20 19:30 Blood Culture - Preliminary Blood No Growth after 96 hours
[2020-01-25 13:44] LABS: HCT 25.8 % (34.0-46.0); HGB 7.9 gm/dL (11.4-16.0); Hypochromasia Moderate; MCH 27.8 pg (25.0-35.0); MCHC 30.6 g/dL (31.0-37.0); MCV 90.7 fL (80.0-100.0); Mean Platelet Volume 7.1; Platelet Count 223 k/uL (150-450); RBC 2.85 m/uL (3.80-5.40); WBC 12.9 k/uL (3.8-10.6)
--- NOTE | 2020-01-25 15:04 | P.PN ---
Subjective Progress Note Date: 01/25/20 Principal diagnosis: abdominal pain Patient is a 64-year-old female with a history of A. fib, hypertension, and seizure disorder who presented to the hospital with complaints of right upper quadrant pain. She also was noted to have a breakthrough seizure. Her CT showed evidence of hydrophilic gallbladder and thickened gallbladder wall and she ultimately underwent a cholecystectomy on 01/20. She also has been found have an ESBL E. coli UTI, urinary retention requiring staright cath X 3 and then Denise catheter, and acute renal insufficiency. She has been seen by ID and neph ro who agreed with current plan of care. She had a PICC line placed on 01/24 with a plan for a total of 2 week of IV abx. She also was noted to have iron deficiency anemia and was started on IV iron. Due to worsening hemoglobin she underwent repeat CT abdomen and pelvis on 01/24 which showed post surgical changes and possible aspiration PNA but patient not clinically consistent with PNA. She was placed on a bowel regiment due to post op ileus. Patient seen and examined at bedside. Denies chest pain, SOB, or nausea. Pain is well controlled. Sister updated at approximately 1:30 PM in the room. Objective - Vital Signs Vital signs: Vital Signs Temp 98.4 F 01/25/20 05:00 Pulse 83 01/25/20 08:00 Resp 20 01/25/20 08:00 BP 111/65 01/25/20 05:00 Pulse Ox 97 01/25/20 05:00 Intake & Output 01/24/20 01/25/20 01/25/20 18:59 06:59 18:59 Intake Total 1010 1500 Output Total 1910 2004 10 Balance -900 -505 -10 Intake: Intake, IV Titration 650 300 Amount Ertapenem 0.5 gm In 50 Sodium Chloride 0.9% 50 ml @ 100 mls/hr IVPB DAILY [facility] Rx#:[id number] Sodium Chloride 0.9% 1, 600 300 000 ml @ 75 mls/hr IV . [id number] [facility] Rx#:[id number] Oral 360 1200 Output: Drainage 10 5 10 Right Abdomen 10 5 10 Urine 1900 2000 Other: Voiding Method Indwelling Catheter Indwelling Catheter Indwelling Catheter - Exam General: non-toxic, no distress, appears at stated age Derm: warm, dry Head: atraumatic, normocephalic, symmetric Eyes: EOMI, no lid lag, anicteric sclera Mouth: no lip lesion, mucus membranes moist Cardiovascular: S1S2 reg, no murmur, positive posterior tibial pulse bilateral, Lungs: CTA bilateral, no rhonchi, no rales , no accessory muscle use Abdominal: soft, slightly distended, nontender to palpation, no guarding, no appreciable organomegaly, minimal output from GABRIELA drain Ext: no gross muscle atrophy, no edema, no contractures Neuro: CN II-XI grossly intact, no focal neuro deficits Psych: Awake, alert, oriented to self and situation - Labs CBC & Chem 7: 01/25/20 13:24 01/25/20 06:55 Labs: Abnormal Lab Results - Last 24 Hours (Table) 01/24/20 01/24/20 01/25/20 Range/Units 07:20 12:19 06:55 WBC 15.6 H 12.0 H (3.8-10.6) k/uL RBC 2.91 L 2.60 L (3.80-5.40) m/uL Hgb 8.2 L 7.2 L (11.4-16.0) gm/dL Hct 26.2 L 23.3 L (34.0-46.0) % MCHC 30.8 L (31.0-37.0) g/dL Chloride (98-107) mmol/L Carbon Dioxide (22-30) mmol/L BUN (7-17) mg/dL Creatinine (0.52-1.04) mg/dL Iron 6 L (50-170) ug/dL TIBC 180 L (228-460) ug/dL % Saturation 3.33 L (12.00-45.00) 01/25/20 Range/Units 06:55 WBC (3.8-10.6) k/uL RBC (3.80-5.40) m/uL Hgb (11.4-16.0) gm/dL Hct (34.0-46.0) % MCHC (31.0-37.0) g/dL Chloride 111 H (98-107) mmol/L Carbon Dioxide 21 L (22-30) mmol/L BUN 44 H (7-17) mg/dL Creatinine 2.29 H (0.52-1.04) mg/dL Iron (50-170) ug/dL TIBC (228-460) ug/dL % Saturation (12.00-45.00) Microbiology - Last 24 Hours (Table) 01/20/20 19:30 Blood Culture - Preliminary Blood No Growth after 96 hours Assessment and Plan Assessment: Acute cholecystitis with sepsis status post lap cholecystectomy -Surgery recommendations appreciated -On regular diet -Pain control -Antiemetics - Invanz and likely related to ESBL Postop constipation/ ileus -bowel regimen - lactulose X 1 today Acute kidney injury on chronic kidney disease stage III/IV with urinary r etention requiring Denise catheter, metabolic acidosis - now will hyperchloremic metadolic acidosis will transition to 0.45 NS -Nephrology recommendations -IV fluids -Avoid nephrotoxic agents -strict I's and O's - once Cr stabilized then will need voiding trial ESBL E. coli urinary tract infection Present on admission Not catheter associated -ID recs appreciated: Invanz 2 weeks in total -s/p PICC Paroxysmal Atrial fibrillation -No anticoagulation secondary to frequent falls -Started on beta rohan by cardiology -Monitor blood pressure closely Acute blood loss anemia with iron deficiency anemia - IV iron -Follow CBC - CT bad and pelvis without signs of bleeding Breakthrough seizure -Continue with Seb Mercado -Seizure precautions Resolved: Hyperkalemia Toxic metabolic encephalopathy Hyponatremia, resolved Hypomagnesemia, resolved DVT prophylaxis: SCDs Discussed with: patient, nursing, DPOA sister Anticipated discharge: 2-[address]: home, home health, IV ABX through [facility] A total of 35 minutes was spent on the care of this complex patient more than 50% of the time was spent in counseling and care coordination.
--- NOTE | 2020-01-25 17:07 | PN ---
PROGRESS NOTE Patient is seen for followup for acute kidney injury, mostly ATN associated with hypotension and hypoperfusion. Renal function has been improving. Patient is currently sitting up in a bedside chair. She is comfortable, in no acute distress. Serum creatinine is down to 2.29 mg/dL today. On examination, blood pressure this morning was 110/61, heart rate 74 per minute. She is afebrile. EXAMINATION OF THE HEART: S1 and S2. EXAMINATION OF LUNGS: Bilateral breath sounds are heard. ABDOMEN: Soft, non-tender. Examination of lower extremities shows no significant edema. Labs show hemoglobin 7.9 today. Sodium 140, potassium 4.5, chloride 111. CO2 is 21, BUN 44, creatinine 2.29. ASSESSMENT: 1. Acute kidney injury, acute tubular necrosis associated with hypotension and hypoperfusion, currently improving. 2. Anemia with evidence of severe iron deficiency, currently maintained on IV iron. 3. Hypotension, improved. Patient is maintained on midodrine. 4. Status post laparoscopic cholecystectomy. 5. Anemia postoperatively. No active bleeding noted. 6. Chronic kidney disease, stage 3, with previous creatinine 1.4; otherwise mostly 1.6 to 1.8 as of August of 2019. Etiology is nephrosclerosis. UA does have protein, but currently patient has a urinary tract infection. 7. Extended-spectrum beta-lactamase Escherichia coli urinary tract infection, maintained on antibiotics. PLAN: Continue IV fluids. Encourage increased oral intake. Continue to monitor renal function. MMODL / IJN: [id number] /
--- NOTE | 2020-01-25 17:31 | PN ---
PROGRESS NOTE DATE OF SERVICE: 01/25/2020 REASON FOR FOLLOWUP: ESBL E coli UTI infection and gangrenous cholecystitis. INTERVAL HISTORY: Patient is currently afebrile, patient is breathing comfortably. She is more awake, alert, denies having any chest pain. No shortness of breath or cough. Abdominal pain is currently controlled. She was able to tolerate her diet. No vomiting and no diarrhea. PHYSICAL EXAMINATION: Blood pressure 110/61 with a pulse of 74, temperature 99, she is 99% on 2 L nasal cannula. General description is a middle-aged female, up in the chair in no distress. RESPIRATORY SYSTEM: Unlabored breathing, clear to auscultation anteriorly. HEART: S1, S2. Regular rate and rhythm. ABDOMEN: Soft, no tenderness, no guarding, no rigidity. LABS: Hemoglobin is 7.1, white count 12.9, BUN of 44, creatinine is 2.29. DIAGNOSTIC IMPRESSION AND PLAN: Patient with ESBL E coli urinary tract infection along with gangrenous cholecystitis status post cholecystectomy. The patient is covered with Unasyn and planning for a total 2 week course of therapy. Family at the bedside, their questions were answered. MMODL / IJN: [id number] /
[2020-01-25] MEDS: SODIUM CHLORIDE 0.45% 1,000 ML IV SCH (17:33)
[2020-01-26] MEDS: CLOTRIMAZOLE 1% CREAM 15 GM TUBE TOPICAL SCH ×2 (05:17→21:41)
[2020-01-26] MEDS: lamoTRIgine 100 MG TAB PO SCH ×3 (08:29→21:37)
[2020-01-26] MEDS: ZIPRASIDONE 80 MG CAP PO SCH ×2 (08:29→21:37)
[2020-01-26] MEDS: MIDODRINE 5 MG TAB PO SCH ×3 (08:29→18:03)
[2020-01-26] MEDS: METOPROLOL TARTRATE 12.5 MG TAB PO SCH ×2 (08:30→21:37)
[2020-01-26] MEDS: levETIRAcetam 500 MG TAB PO SCH ×2 (08:30→21:36)
[2020-01-26] MEDS: OXcarbazepine 300 MG TAB PO SCH ×2 (08:30→21:37)
[2020-01-26] MEDS: DOCUSATE 100 MG CAP PO SCH (08:30)
[2020-01-26] MEDS: SERTRALINE 50 MG TAB PO SCH (08:30)
[2020-01-26] MEDS: ERTAPENEM 0.5 GM in SODIUM CHLORIDE 0.9% 50 ML IVPB SCH (08:30)
[2020-01-26 09:14] LABS: HCT 25.5 % (34.0-46.0); HGB 7.8 gm/dL (11.4-16.0); Hypochromasia Slight; MCH 27.3 pg (25.0-35.0); MCHC 30.4 g/dL (31.0-37.0); MCV 89.8 fL (80.0-100.0); Mean Platelet Volume 6.9; Platelet Count 254 k/uL (150-450); RBC 2.84 m/uL (3.80-5.40); RDW 14.9 % (11.5-15.5); WBC 12.6 k/uL (3.8-10.6)
[2020-01-26 09:19] LABS: Albumin 2.4 g/dL (3.5-5.0); Calcium 8.9 mg/dL (8.4-10.2); Potassium 4.1 mmol/L (3.5-5.1); Total Bilirubin 0.3 mg/dL (0.2-1.3); Total Protein 5.2 g/dL (6.3-8.2)
[2020-01-26] MEDS: SODIUM FERRIC GLUCONAT-SUCROSE 125 MG in SODIUM CHLORIDE 0.9% 100 ML IVPB SCH (10:24)
--- NOTE | 2020-01-26 11:25 | P.PN ---
Subjective Progress Note Date: 01/26/20 (delayed charting seen at 0900) Principal diagnosis: abdominal pain Patient is a 64-year-old female with a history of A. fib, hypertension, and seizure disorder who presented to the hospital with complaints of right upper quadrant pain. She also was noted to have a breakthrough seizure. Her CT showed evidence of hydrophilic gallbladder and thickened gallbladder wall and she ultimately underwent a cholecystectomy on 01/20. She also has been found have an ESBL E. coli UTI, urinary retention requiring staright cath X 3 and then Rogers catheter, and acute renal insufficiency. She has been seen by ID and nephro who agreed with current plan of care. She had a PICC line placed on 01/24 with a plan for a total of 2 week of IV abx. She also was noted to have iron deficiency anemia and was started on IV iron. Due to worsening hemoglobin she underwent repeat CT abdomen and pelvis on 01/24 which showed post surgical changes and possible aspiration PNA but patient not clinically consistent with PNA. She was placed on a bowel regiment due to post op ileus and had a large BM on the morning of 01/26/2020. Patient seen and examined at bedside. Doing well, still hungry, no chest pain, SOB, nausea. Feeling tired. Sister updated via phone call at 11:21 Objective - Vital Signs Vital signs: Vital Signs Temp 98.1 F 01/26/20 05:00 Pulse 86 01/26/20 05:00 Resp 20 01/26/20 05:00 BP 131/66 01/26/20 05:00 Pulse Ox 98 01/26/20 05:00 Intake & Output 01/25/20 01/26/20 01/26/20 18:59 06:59 18:59 Intake Total 240 350 Output Total 2014 7771 822 Balance -3749 -1540 -828 Intake: Intake, IV Titration 350 Amount Sodium Chloride 0.45% 1, 350 000 ml @ 50 mls/hr IV . Q20H [facility] Rx#:[id number] Oral 240 Output: Drainage 15 Right Abdomen 15 Urine 1999 [id number] 829 Other: Voiding Method Indwelling Catheter Indwelling Catheter # Voids 0 # Bowel Movements 1 - Exam General: ill appearing, no distress, appears at stated age Derm: warm, dry Head: atraumatic, normocephalic, symmetric Eyes: EOMI, no lid lag, anicteric sclera Mouth: no lip lesion, mucus membranes moist Cardiovascular: S1S2 reg, no murmur, positive posterior tibial pulse bilateral, Lungs: Decreased bs bilateral, no rhonchi, no rales , no accessory muscle use Abdominal: soft,non distended, nontender to palpation, no guarding, no appreciable organomegaly Ext: no gross muscle atrophy, no edema, no contractures Neuro: CN II-XI grossly intact, no focal neuro deficits Psych: Awake, alert, oriented to self and situation - Labs CBC & Chem 7: 01/26/20 08:41 01/26/20 08:41 Labs: Abnormal Lab Results - Last 24 Hours (Table) 01/25/20 01/26/20 01/26/20 Range/Units 13:24 08:41 08:41 WBC 12.9 H 12.6 H (3.8-10.6) k/uL RBC 2.85 L 2.84 L (3.80-5.40) m/uL Hgb 7.9 L 7.8 L (11.4-16.0) gm/dL Hct 25.8 L 25.5 L (34.0-46.0) % MCHC 30.6 L 30.4 L (31.0-37.0) g/dL Chloride 112 H (98-107) mmol/L Carbon Dioxide 20 L (22-30) mmol/L BUN 44 H (7-17) mg/dL Creatinine 2.14 H (0.52-1.04) mg/dL Glucose 101 H (74-99) mg/dL Total Protein 5.2 L (6.3-8.2) g/dL Albumin 2.4 L (3.5-5.0) g/dL Microbiology - Last 24 Hours (Table) 01/20/20 19:30 Blood Culture - Preliminary Blood No Growth after 120 hours Assessment and Plan Assessment: Acute cholecystitis with sepsis status post lap cholecystectomy - Surgery recommendations appreciated - On regular diet - Pain control - Antiemetics - Invanz and likely related to ESBL Postop constipation/ ileus - resolved - continued bowel regimen Acute kidney injury on chronic kidney disease stage III/IV with urinary retention requiring Rogers catheter, metabolic acidosis - stop fluids devoliping sins of fluid overload -Nephrology recommendations -IV fluids -Avoid nephrotoxic agents -strict I's and O's - D/C rogers toady and voiding trial ESBL E. coli urinary tract infection Present on admission Not catheter associated -ID recs appreciated: Invanz 2 weeks in total -s/p PICC Paroxysmal Atrial fibrillation -No anticoagulation secondary to frequent falls -Started on beta rohan by cardiology -Monitor blood pressure closely Acute blood loss anemia with iron deficiency anemia - IV iron - Follow CBC - CT bad and pelvis without signs of bleeding Breakthrough seizure -Continue with Kerobert Lamraal -Seizure precautions Resolved: Hyperkalemia Toxic metabolic encephalopathy Hyponatremia, resolved Hypomagnesemia, resolved DVT prophylaxis: SCDs Discussed with: patient, nursing, DPOA sister Anticipated discharge: 1-[address]: home, home health, IV ABX through [facility] A total of 35 minutes was spent on the care of this complex patient more than 50% of the time was spent in counseling and care coordination.
[2020-01-26] MEDS: SODIUM CHLORIDE 0.45% 1,000 ML IV SCH (12:43)
--- NOTE | 2020-01-26 13:14 | PN ---
PROGRESS NOTE Patient is seen for followup for acute kidney injury. She is currently doing well. Patient is sitting in bed. No significant complaints today. Renal function continues to improve. PHYSICAL EXAMINATION: On examination, blood pressure is 131/66, heart rate 86 per minute, she is afebrile. Examination of the heart S1, S2. Examination of the lungs, bilateral breath sounds are heard. Abdomen is soft, nontender. Examination of lower extremities shows no evidence of edema. [employer] exam grossly intact. LABS: Show sodium 141, potassium 4.1, chloride 112, CO2 is 20, BUN 44, creatinine 2.14, hemoglobin 7.8 g/dL. ASSESSMENT: 1. Acute kidney injury associated with hypotension hypoperfusion, currently improving. There was an element of urine retention. Patient received one dose of vancomycin as well. We can remove the Denise catheter and try to see if the patient is able to void without the catheter. 2. Chronic kidney disease stage 3. Previous creatinine 1.4-1.6 mg/dL. The creatinine was 1.8 in August of 2019. Etiology is nephrosclerosis. 3. Urinary tract infection with ESBL E coli, maintained on antibiotics. 4. Status post laparoscopic cholecystectomy. 5. Hypotension, currently improved. 6. Anemia postoperatively. No active bleeding noted. Maintained on IV iron for iron deficiency. PLAN: I agree with discontinuation of Denise catheter and voiding trial. Continue to encourage increased oral intake. Continue to avoid nephrotoxic agents. MMODL / IJN: [id number] /
--- NOTE | 2020-01-27 07:09 | PN ---
PROGRESS NOTE REASON FOR FOLLOWUP: ESBL E coli urinary tract infection and gangrenous cholecystitis. INTERVAL HISTORY: Patient is currently afebrile. The patient is breathing comfortably, slightly sleepy and lethargic today and did not provide any history. No vomiting or diarrhea has been reported. PHYSICAL EXAMINATION: Blood pressure 146/73 with a pulse of 73, temperature 97.7. She is 94% ion room air. General description is a middle-aged female lying in bed in no distress. Respiratory system: Unlabored breathing clear to auscultation anteriorly. Heart S1, S2. Regular rate and rhythm. Abdomen is soft, mild tenderness, no guarding or rigidity. LABS: Hemoglobin 7.8, white count 10.6, BUN of 44, creatinine is 2.14. DIAGNOSTIC IMPRESSION AND PLAN: Patient with extended spectrum beta lactamase E coli urinary tract infection, along with gangrenous cholecystitis. Patient is covered with Invanz. White count showing a downward trend. Plan is for total of 2 weeks of antibiotic in the outpatient setting and monitor clinical course closely. MMODL / IJN: [id number] /
[2020-01-27] MEDS: ZIPRASIDONE 80 MG CAP PO SCH ×2 (07:59→20:26)
[2020-01-27] MEDS: lamoTRIgine 100 MG TAB PO SCH ×3 (07:59→20:25)
[2020-01-27] MEDS: OXcarbazepine 300 MG TAB PO SCH ×2 (07:59→20:26)
[2020-01-27] MEDS: SERTRALINE 50 MG TAB PO SCH (07:59)
[2020-01-27] MEDS: DOCUSATE 100 MG CAP PO SCH (07:59)
[2020-01-27] MEDS: levETIRAcetam 500 MG TAB PO SCH ×2 (07:59→20:25)
[2020-01-27] MEDS: ERTAPENEM 0.5 GM in SODIUM CHLORIDE 0.9% 50 ML IVPB SCH (08:00)
[2020-01-27] MEDS: METOPROLOL TARTRATE 12.5 MG TAB PO SCH ×2 (08:00→20:26)
[2020-01-27] MEDS: MIDODRINE 5 MG TAB PO SCH ×2 (08:00→12:28)
[2020-01-27 08:11] LABS: HCT 25.2 % (34.0-46.0); HGB 7.9 gm/dL (11.4-16.0); Hypochromasia Slight; MCH 27.8 pg (25.0-35.0); MCHC 31.3 g/dL (31.0-37.0); MCV 88.7 fL (80.0-100.0); Mean Platelet Volume 6.9; Platelet Count 294 k/uL (150-450); RBC 2.84 m/uL (3.80-5.40); RDW 14.9 % (11.5-15.5); WBC 11.6 k/uL (3.8-10.6)
[2020-01-27 08:24] LABS: Albumin 2.4 g/dL (3.5-5.0); Calcium 8.9 mg/dL (8.4-10.2); Potassium 4.1 mmol/L (3.5-5.1); Total Bilirubin 0.3 mg/dL (0.2-1.3); Total Protein 5.2 g/dL (6.3-8.2)
[2020-01-27] MEDS: SODIUM FERRIC GLUCONAT-SUCROSE 125 MG in SODIUM CHLORIDE 0.9% 100 ML IVPB SCH (10:50)
--- NOTE | 2020-01-27 13:42 | P.PN ---
Subjective Progress Note Date: 01/27/20 CHIEF COMPLAINT: Abnormal computed tomography scan HISTORY OF PRESENT ILLNESS: The patient is a 64-year-old female status post cholecystectomy 01/21/2020. She had a drop in hemoglobin on 01/25/[address] of the abdomen and pelvis. Secondary to the results, general surgery is notified. She is currently in antibiotics. She is sitting up in chair. She is tolerating diet. At the time of my assessment, she was eating corn and beef. She denies any abdominal pain. ROS: No reports of nausea and vomiting. No fevers or chills. No new chest pain. PHYSICAL EXAM: VITAL SIGNS: Reviewed CONSTITUTIONAL: Well developed and in no acute distress. EYES: Conjuctivae without sclera icterus. Extraocular movements grossly intact. HEAD, EARS, NOSE, THROAT: Moist buccal mucosa. Head is atraumatic, normocephalic. Hears conversational speech. No nasal drainage. NECK: Supple. No thyroidomegaly. RESPIRATORY: Non-labored respirations and equal bilateral excursions. CARDIOVASCULAR: Palpable 2+ radial pulses. Regular rate. Regular rhythm. ABDOMEN: Soft. No peritonitis. MUSCULOSKELETAL: No clubbing cyanosis. SKIN: Good skin turgor. Well perfused. NEUROLOGIC: Cranial nerves II through XII grossly intact. No focal or lateralizing signs. PSYCH: Appropriate affect. Alert and oriented to person, place and time. CLINICAL LABS: White blood cell count elevated improved from 15.6-11.6. LFTs within normal limits. Hemoglobin down from 8.2-7.2 now up to 7.9. No recent blood products. STUDIES: CT of the abdomen and pelvis independent review demonstrating a drain. Large almost 1 cm gallstone within the hepatic fossa. ASSESSMENT: 1. Symptomatic gallstones 2. Abnormal computed tomography scan PLAN: 1. LFTs has been within normal limits. 2. No additional surgical intervention needed for retained gallstone as patient is clinically asymptomatic 3. Agree with iron infusions for anemia Objective - Vital Signs Vital signs: Vital Signs Temp 98.5 F 01/27/20 12:57 Pulse 70 01/27/20 12:57 Resp 18 01/27/20 12:57 BP 130/69 01/27/20 12:57 Pulse Ox 96 01/27/20 12:57 Intake & Output 01/26/20 01/27/20 01/27/20 18:59 06:59 18:59 Intake Total 150 Output Total 1040 Balance -1040 150 Intake: Oral 150 Output: Urine 825 Post Void Residual 215 Other: Voiding Method Indwelling Catheter Indwelling Catheter # Voids 2 5 1 # Bowel Movements 1 1 - Labs CBC & Chem 7: 01/27/20 06:31 01/27/20 06:31 Labs: Abnormal Lab Results - Last 24 Hours (Table) 01/27/20 01/27/20 Range/Units 06:31 06:31 WBC 11.6 H (3.8-10.6) k/uL RBC 2.84 L (3.80-5.40) m/uL Hgb 7.9 L (11.4-16.0) gm/dL Hct 25.2 L (34.0-46.0) % Chloride 114 H (98-107) mmol/L BUN 38 H (7-17) mg/dL Creatinine 1.79 H (0.52-1.04) mg/dL Total Protein 5.2 L (6.3-8.2) g/dL Albumin 2.4 L (3.5-5.0) g/dL Microbiology - Last 24 Hours (Table) 01/20/20 19:30 Blood Culture - Final Blood No Growth after 144 hours Assessment and Plan (1) Cholecystitis, acute Current Visit: Yes Status: Acute Code(s): K81.0 - ACUTE CHOLECYSTITIS SNOMED Code(s): 47879056 (2) Gallstone Current Visit: No Status: Acute Code(s): K80.20 - CALCULUS OF GALLBLADDER W/O CHOLECYSTITIS W/O OBSTRUCTION SNOMED Code(s): 250941452
--- NOTE | 2020-01-27 13:54 | P.PN ---
Subjective Progress Note Date: 01/27/20 Principal diagnosis: Cholecystitis, UTI Patient was seen and examined. No acute events overnight. Patient reports mild abdominal pain at the site of incision of her laparoscopic scars. She has been tolerating her diet well. Nursing reports two-person assist to ambulate and to use the washroom. Objective - Vital Signs Vital signs: Vital Signs Temp 98.5 F 01/27/20 12:57 Pulse 70 01/27/20 12:57 Resp 18 01/27/20 12:57 BP 130/69 01/27/20 12:57 Pulse Ox 96 01/27/20 12:57 Intake & Output 01/26/20 01/27/20 01/27/20 18:59 06:59 18:59 Intake Total 150 Output Total 1040 Balance -1040 150 Intake: Oral 150 Output: Urine 825 Post Void Residual 215 Other: Voiding Method Indwelling Catheter Indwelling Catheter # Voids 2 5 1 # Bowel Movements 1 1 - Exam General: [non toxic], [no distress], [appears at stated age] Derm: [warm], [dry] Head: [atraumatic], [normocephalic], [symmetric] Eyes: [EOMI], [no lid lag], [anicteric sclera] Mouth: [no lip lesion], [mucus membranes moist] Cardiovascular: [S1S2 reg], [no murmur], [positive DP pulse bilateral], Lungs: [Decreased breath sounds bilateral], [no rhonchi, no rales] , [no accessory muscle use] Abdominal: [soft with decreased bowel sounds], [ nontender to palpation], [no guarding], [no appreciable organomegaly], laparoscopic scar is intact Ext: [no gross muscle atrophy], [no edema], [no contractures] Neuro: [no focal neuro deficits] Psych: [Unable to determine] - Labs CBC & Chem 7: 01/27/20 06:31 01/27/20 06:31 Labs: Abnormal Lab Results - Last 24 Hours (Table) 01/27/20 01/27/20 Range/Units 06:31 06:31 WBC 11.6 H (3.8-10.6) k/uL RBC 2.84 L (3.80-5.40) m/uL Hgb 7.9 L (11.4-16.0) gm/dL Hct 25.2 L (34.0-46.0) % Chloride 114 H (98-107) mmol/L BUN 38 H (7-17) mg/dL Creatinine 1.79 H (0.52-1.04) mg/dL Total Protein 5.2 L (6.3-8.2) g/dL Albumin 2.4 L (3.5-5.0) g/dL Microbiology - Last 24 Hours (Table) 01/20/20 19:30 Blood Culture - Final Blood No Growth after 144 hours Assessment and Plan Assessment: Acute cholecystitis with sepsis status post lap cholecystectomy - Surgery recommendations appreciated - On regular diet - Pain control - Antiemetics - Invanz and likely related to ESBL Postop constipation/ ileus - resolved - continued bowel regimen Acute kidney injury on chronic kidney disease stage III/IV with urinary retention requiring Denise catheter, metabolic acidosis -Nephrology recommendations -Avoid nephrotoxic agents -strict I's and O's -Patient voiding well after Denise discontinued ESBL E. coli urinary tract infection Present on admission Not catheter associated -ID recs appreciated: Invanz 2 weeks in total -s/p PICC Paroxysmal Atrial fibrillation -No anticoagulation secondary to frequent falls -Started on beta rohan by cardiology -Monitor blood pressure closely Acute blood loss anemia with iron deficiency anemia - IV iron - Follow CBC - CT bad and pelvis without signs of bleeding Breakthrough seizure -Continue with Seb Mercado -Seizure precautions Resolved: Hyperkalemia Toxic metabolic encephalopathy Hyponatremia, resolved Hypomagnesemia, resolved [Patient progressing well since cholecystectomy. Requiring 2 person assist to ambulate to the washroom and her reclining chair. Attempted to call guardian 3, went to voice mail. Will consult PT for further recommendations. Possible DC to rehab versus home with 24-hour supervision. Will attempt to call guardian at a later time.]
--- NOTE | 2020-01-27 15:35 | PN ---
PROGRESS NOTE Patient is seen for followup for acute kidney injury. Her renal function continues to improve. Creatinine is down to 1.79 now. Overall general condition has improved. PHYSICAL EXAMINATION: Blood pressure is 130/69, heart rate 70 per minute. She is afebrile. Examination of the heart S1, S2. Examination of lungs, bilateral breath sounds are heard. Abdomen is soft, nontender. Examination of lower extremities shows no evidence of edema. [employer] FI[employer]ENT exam grossly intact. LAB: Show sodium of 144, potassium 4.1, chloride 114, CO2 is 22, BUN 38, creatinine 1.79, hemoglobin 7.9 g/dL, calcium 8.9, magnesium 2.0. ASSESSMENT: 1. Acute kidney injury associated with hypotension, hypoperfusion, some degree of urinary retention and vancomycin, currently improved. 2. Chronic kidney disease stage 3. Previous creatinine 1.4-1.8 mg/dL secondary to nephrosclerosis. 3. Urinary tract infection with extended spectrum beta lactamase E coli. Maintained on antibiotics. 4. Status post laparoscopic cholecystectomy. 5. Hypotension, now resolved. 6. Anemia postoperatively. Maintained on IV iron for iron deficiency. PLAN: Continue to encourage and increase oral intake. Follow up as outpatient for chronic kidney disease. I will discontinue the midodrine as blood pressure is above 130 mmHg systolic. MMODL / IJN: [id number] /
[2020-01-27] MEDS: CLOTRIMAZOLE 1% CREAM 15 GM TUBE TOPICAL SCH (20:25)
--- NOTE | 2020-01-28 00:45 | PN ---
PROGRESS NOTE DATE OF SERVICE: 01/27/2020 REASON FOR FOLLOWUP: ESBL E coli urinary tract infection and gangrenous cholecystitis. INTERVAL HISTORY: The patient is currently afebrile. The patient is breathing comfortably, more awake and alert. Denies having any chest pain or cough. No abdominal pain. No diarrhea. PHYSICAL EXAMINATION: Blood pressure is 130/69 with a pulse of 70, temperature 98.5. She is 96% on 3 L nasal cannula. General description is a middle-aged female up in the bed in no distress. RESPIRATORY SYSTEM: Unlabored breathing, clear to auscultation anteriorly. HEART: S1, S2. Regular rate and rhythm. ABDOMEN: Soft, no tenderness. LABS: Hemoglobin 7.9, white count 11.6, creatinine 1.79. DIAGNOSTIC IMPRESSION AND PLAN: Patient with ESBL Escherichia coli urinary tract infection with evidence of gangrenous cholecystitis status post cholecystectomy with improvement in her kidney function. Invanz dose should be adjusted to 1 gram daily. She will need a Midline for outpatient IV antibiotics for at least another 10 days and close outpatient followup. MMODL / IJN: [id number] /
[2020-01-28] MEDS: DOCUSATE 100 MG CAP PO SCH (08:30)
[2020-01-28] MEDS: OXcarbazepine 300 MG TAB PO SCH ×2 (08:30→19:56)
[2020-01-28] MEDS: METOPROLOL TARTRATE 12.5 MG TAB PO SCH ×2 (08:30→19:56)
[2020-01-28] MEDS: levETIRAcetam 500 MG TAB PO SCH ×2 (08:30→19:56)
[2020-01-28] MEDS: ZIPRASIDONE 80 MG CAP PO SCH ×2 (08:30→19:56)
[2020-01-28] MEDS: SERTRALINE 50 MG TAB PO SCH (08:30)
[2020-01-28] MEDS: lamoTRIgine 100 MG TAB PO SCH ×3 (08:30→19:56)
[2020-01-28] MEDS: ERTAPENEM 0.5 GM in SODIUM CHLORIDE 0.9% 50 ML IVPB SCH (08:48)
[2020-01-28] MEDS: SODIUM FERRIC GLUCONAT-SUCROSE 125 MG in SODIUM CHLORIDE 0.9% 100 ML IVPB SCH (09:50)
--- NOTE | 2020-01-28 10:10 | P.PN ---
Subjective Patient is seen in follow-up for acute kidney injury on chronic kidney disease. Creatinine 1.79 as of yesterday. Working with physical therapy. Denise catheter removed on January 25. She has been voiding on her own. No edema. No vomiting or diarrhea. Vital signs are stable. General: The patient appeared well nourished and normally developed. HEENT: Head exam is unremarkable. Neck is without jugular venous distension. LUNGS: Lungs are clear to auscultation and percussion. Breath sounds decreased. HEART: Rate and Rhythm are regular. ABDOMEN: Soft, nontender. EXTREMITITES: No clubbing, cyanosis, or edema. Objective - Vital Signs Vital signs: Vital Signs Temp 98.5 F 01/28/20 05:00 Pulse 83 01/28/20 05:00 Resp 20 01/28/20 05:00 BP 143/76 01/28/20 05:00 Pulse Ox 94 L 01/28/20 05:00 Intake & Output 01/27/20 01/28/20 01/28/20 18:59 06:59 18:59 Output Total 120 Balance -120 Output: Post Void Residual 120 Other: Voiding Method Bedside Commode Bedside Commode # Voids 1 1 # Bowel Movements 1 1 - Labs CBC & Chem 7: 01/27/20 06:31 01/27/20 06:31 Assessment and Plan Plan: Assessment: 1. Acute kidney injury secondary to ATN secondary to hypotension and urinary retention. Improved. Creatinine 1.79 as of yesterday. 2. Chronic kidney disease stage III with baseline creatinine in the range of 1.4-1.6 secondary to nephrosclerosis. 3. Urinary retention. Denise catheter removed January 25. 4. E. coli UTI maintain on antibiotics. 5. Iron deficiency anemia status post IV iron. Plan: Encourage oral intake. Avoid nephrotoxins. Continue to monitor renal function and urine output. Anticipate discharge soon. Follow up outpatient in 1-2 weeks.
--- NOTE | 2020-01-28 11:56 | P.PN ---
Subjective Progress Note Date: 01/28/20 (delayed charting seen at 0930) Principal diagnosis: abdominal pain Patient is a 64-year-old female with a history of A. fib, hypertension, and seizure disorder who presented to the hospital with complaints of right upper quadrant pain. She also was noted to have a breakthrough seizure. Her CT showed evidence of hydrophilic gallbladder and thickened gallbladder wall and she ultimately underwent a cholecystectomy on 01/20. She also has been found have an ESBL E. coli UTI, urinary retention requiring staright cath X 3 and then Petty catheter, and acute renal insufficiency. She has been seen by ID and nephro who agreed with current plan of care. She had a PICC line placed on 01/24 with a plan for a total of 2 week of IV abx. She also was noted to have iron deficiency anemia and was started on IV iron. Due to worsening hemoglobin she underwent repeat CT abdomen and pelvis on 01/24 which showed post surgical changes and possible aspiration PNA but patient not clinically consistent with PNA. She was placed on a bowel regiment due to post op ileus and had a large BM on the morning of 01/26/2020. Petty removed on 01/25 and she did not have an additional signs of urinary retention. She continued to progress well, but was significantly weak. Patient seen and examined at bedside. No chest pain, SOB, nausea, or belly pain Sister updated via phone call at 11:52 Objective - Vital Signs Vital signs: Vital Signs Temp 98.5 F 01/28/20 05:00 Pulse 83 01/28/20 05:00 Resp 20 01/28/20 05:00 BP 143/76 01/28/20 05:00 Pulse Ox 94 L 01/28/20 05:00 Intake & Output 01/27/20 01/28/20 01/28/20 18:59 06:59 18:59 Output Total 120 Balance -120 Output: Post Void Residual 120 Other: Voiding Method Bedside Commode Bedside Commode # Voids 1 1 # Bowel Movements 1 1 - Exam General:non toxic, no distress, appears at stated age Derm: warm, dry Head: atraumatic, normocephalic, symmetric Eyes: EOMI, no lid lag, anicteric sclera Mouth: no lip lesion, mucus membranes moist Cardiovascular: S1S2 reg, no murmur, positive posterior tibial pulse bilateral, Lungs: CTA bilateral, no rhonchi, no rales , no accessory muscle use Abdominal: soft,non distended, nontender to palpation, no guarding, no appreciable organomegaly Ext: no gross muscle atrophy, no edema, no contractures Neuro: CN II-XI grossly intact, no focal neuro deficits, + tremor intention Psych: Awake, alert, oriented to self and situation - Labs CBC & Chem 7: 01/27/20 06:31 01/27/20 06:31 Assessment and Plan Assessment: Acute cholecystitis with sepsis status post lap cholecystectomy - Surgery recommendations appreciated - On regular diet - Pain control - Antiemetics - Invanz and likely related to ESBL total of 9 more days Acute kidney injury on chronic kidney disease stage III/IV -Nephrology recommendations appreciated -Avoid nephrotoxic agents -strict I's and O's ESBL E. coli urinary tract infection Present on admission Not catheter associated -ID recs appreciated: Invanz 9 more days -s/p PICC Paroxysmal Atrial fibrillation -No anticoagulation secondary to frequent falls -Started on beta rohan by cardiology -Monitor blood pressure closely Acute blood loss anemia with iron deficiency anemia - IV iron completed today - Follow CBC - CT abd and pelvis without signs of bleeding Breakthrough seizure -Continue with Seb Mercado -Seizure precautions Resolved: Hyperkalemia Toxic metabolic encephalopathy Hyponatremia, resolved Hypomagnesemia, resolved Postop constipation/ ileus, resolved metabolic acidosis, resolved DVT prophylaxis: SCDs Discussed with: patient, nursing, DPOA sister (left message) Anticipated discharge: today if able to make arrangements Anticipated discharge place: SNF A total of 35 minutes was spent on the care of this complex patient more than 50% of the time was spent in counseling and care coordination.
[2020-01-28] MEDS: CLOTRIMAZOLE 1% CREAM 15 GM TUBE TOPICAL SCH (19:57)
--- NOTE | 2020-01-28 21:51 | PN ---
PROGRESS NOTE DATE OF SERVICE: 01/28/2020 REASON FOR FOLLOWUP: ESBL E coli urinary tract infection and gangrenous cholecystitis. INTERVAL HISTORY: The patient is currently afebrile. The patient is breathing comfortably. The patient denies having any chest pain or shortness of breath or cough. Abdominal pain is currently improved. No vomiting or any diarrhea. PHYSICAL EXAMINATION: Blood pressure 118/67, pulse of 71, temperature 98.2. She is 93% on room air. General description is a middle-aged female up in the chair in no distress. RESPIRATORY SYSTEM: Unlabored breathing. Clear to auscultation anteriorly. HEART: S1, S2. Regular rate and rhythm. ABDOMEN: Soft. No tenderness. LABS: No new labs have been obtained today. DIAGNOSTIC IMPRESSION AND PLAN: Patient with ESBL Escherichia coli urinary tract infection and acute gangrenous cholecystitis, status post cholecystectomy. Patient is covered with Invanz. Dose should be adjusted up to 1 gram daily in view of improvement in kidney function; to continue for one week with close outpatient followup. MMODL / IJN: [id number] /
[2020-01-29] MEDS: DOCUSATE 100 MG CAP PO SCH (08:46)
[2020-01-29] MEDS: METOPROLOL TARTRATE 12.5 MG TAB PO SCH (08:46)
[2020-01-29] MEDS: lamoTRIgine 100 MG TAB PO SCH ×2 (08:46→13:04)
[2020-01-29] MEDS: SERTRALINE 50 MG TAB PO SCH (08:47)
[2020-01-29] MEDS: ZIPRASIDONE 80 MG CAP PO SCH (08:47)
[2020-01-29] MEDS: OXcarbazepine 300 MG TAB PO SCH (08:47)
[2020-01-29] MEDS: levETIRAcetam 500 MG TAB PO SCH (08:47)
[2020-01-29] MEDS: ERTAPENEM 0.5 GM in SODIUM CHLORIDE 0.9% 50 ML IVPB SCH (09:02)
[2020-01-29 09:04] LABS: HCT 29.4 % (34.0-46.0); HGB 9.3 gm/dL (11.4-16.0); Hypochromasia Slight; MCH 28.3 pg (25.0-35.0); MCHC 31.7 g/dL (31.0-37.0); MCV 89.2 fL (80.0-100.0); Mean Platelet Volume 6.6; Platelet Count 373 k/uL (150-450); RBC 3.29 m/uL (3.80-5.40); RDW 15.1 % (11.5-15.5); WBC 11.3 k/uL (3.8-10.6)
[2020-01-29 09:21] LABS: Albumin 2.8 g/dL (3.5-5.0); Magnesium 1.8 mg/dL (1.6-2.3); Potassium 4.1 mmol/L (3.5-5.1); Total Bilirubin 0.3 mg/dL (0.2-1.3); Total Protein 5.8 g/dL (6.3-8.2)
--- NOTE | 2020-01-29 11:06 | P.PN ---
Subjective Patient is seen in follow-up for acute kidney injury on chronic kidney disease. Renal function continues to improve. Creatinine 1.54 today. She's been working with physical therapy. Denise catheter removed on January 25. She has been voiding on her own. No edema. No vomiting or diarrhea. Vital signs are stable. General: The patient appeared well nourished and normally developed. HEENT: Head exam is unremarkable. Neck is without jugular venous distension. LUNGS: Lungs are clear to auscultation and percussion. Breath sounds decreased. HEART: Rate and Rhythm are regular. ABDOMEN: Soft, nontender. EXTREMITITES: No clubbing, cyanosis, or edema. Objective - Vital Signs Vital signs: Vital Signs Temp 97.9 F 01/29/20 04:50 Pulse 66 01/29/20 04:50 Resp 14 01/29/20 04:50 BP 127/78 01/29/20 04:50 Pulse Ox 97 01/29/20 04:50 Intake & Output 01/28/20 01/29/20 01/29/20 18:59 06:59 18:59 Intake Total 150 120 Balance 150 120 Intake: Intake, IV Titration 150 Amount Ertapenem 0.5 gm In 50 Sodium Chloride 0.9% 50 ml @ 100 mls/hr IVPB DAILY [facility] Rx#:[id number] Sodium Ferric Gluconat- 100 Sucrose 125 mg In Sodium Chloride 0.9% 100 ml @ 100 mls/hr IVPB DAILY [facility] Rx#:[id number] Oral 120 Other: Voiding Method Bedside Commode Bedside Commode Bedside Commode # Voids 1 # Bowel Movements 1 - Labs CBC & Chem 7: 01/29/20 08:06 01/29/20 08:06 Labs: Abnormal Lab Results - Last 24 Hours (Table) 01/29/20 01/29/20 Range/Units 08:06 08:06 WBC 11.3 H (3.8-10.6) k/uL RBC 3.29 L (3.80-5.40) m/uL Hgb 9.3 L (11.4-16.0) gm/dL Hct 29.4 L (34.0-46.0) % Chloride 108 H (98-107) mmol/L BUN 21 H (7-17) mg/dL Creatinine 1.54 H (0.52-1.04) mg/dL Total Protein 5.8 L (6.3-8.2) g/dL Albumin 2.8 L (3.5-5.0) g/dL Assessment and Plan Plan: Assessment: 1. Acute kidney injury secondary to ATN secondary to hypotension and urinary retention. Improved. Creatinine 1.54 today. 2. Chronic kidney disease stage III with baseline creatinine in the range of 1.4-1.6 secondary to nephrosclerosis. 3. Urinary retention. Denise catheter removed January 25. 4. E. coli UTI maintain on antibiotics. 5. Iron deficiency anemia status post IV iron. Plan: Encourage oral intake. Avoid nephrotoxins. Continue to monitor renal function and urine output. Anticipate discharge soon. Follow up outpatient in 1-2 weeks.
[2020-01-29 11:48] VITALS: BP 117/71; PULSE 69; RESP 17; TEMP 97.8
--- NOTE | 2020-01-29 11:56 | P.DS ---
Providers Date of admission: 01/22/20 15:11 Expected date of discharge: 01/29/20 Attending physician: Marilou Lin, Consults: 01/21/20 08:22 Consult Physician Urgent Consulting Provider: Marilou Lin Consult Reason/Comments: [employer] Management Do you want consulting provider notified?: Yes 01/21/20 11:27 Consult Physician Stat Consulting Provider: Armando Dewitt Consult Reason/Comments: Afib Do you want consulting provider notified?: Yes 01/22/20 11:49 Consult Physician Routine Consulting Provider: Charlee Hays Consult Reason/Comments: acute renal failure Do you want consulting provider notified?: Yes 01/23/20 07:51 Consult Physician Routine Consulting Provider: Sidney Goodrich Consult Reason/Comments: ESBL UTI, ACute reggie Do you want consulting provider notified?: Yes 01/26/20 12:28 Consult Physician Routine Consulting Provider: Gregorio Gasca Consult Reason/Comments: Cystic duct stone Do you want consulting provider notified?: Yes Primary care physician: Oral Hernandez [facility] Course: Patient is a 64-year-old female with a history of A. fib, hypertension, and seizure disorder who presented to the hospital with complaints of right upper quadrant pain. She also was noted to have a breakthrough seizure. Her CT showed evidence of hydrophilic gallbladder and thickened gallbladder wall and she ultimately underwent a cholecystectomy on 01/20. She also has been found have an ESBL E. coli UTI, urinary retention requiring staright cath X 3 and then Denise catheter, and acute renal insufficiency. She has been seen by ID and nephro who agreed with current plan of care. She had a PICC line placed on 01/24 with a plan for a total of 2 week of IV abx. She also was noted to have iron deficiency anemia and was started on IV iron. Due to worsening hemoglobin she underwent repeat CT abdomen and pelvis on 01/24 which showed post surgical changes and possible aspiration PNA but patient not clinically consistent with PNA. She was placed on a bowel regiment due to post op ileus and had a large BM on the morning of 01/26/2020. Case was discussed with the guardian who felt that patient would benefit from subacute rehab due to the fact that she was requiring 2 person assist to ambulate and to use the washroom. Denise catheter was removed on January 25 and she did not have any signs of urinary retention. Patient was seen and examined this morning. No acute events overnight. Patient reports no abdominal pain. Bowel movement yesterday. She reports no difficulties with urination. Tolerating diet well. General: [non toxic], [no distress], [appears at stated age] Derm: [warm], [dry] Head: [atraumatic], [normocephalic], [symmetric] Eyes: [EOMI], [no lid lag], [anicteric sclera] Mouth: [no lip lesion], [mucus membranes moist] Cardiovascular: [S1S2 reg], [no murmur], [positive DP pulse bilateral], Lungs: [Decreased breath sounds bilateral], [no rhonchi, no rales] , [no accessory muscle use] Abdominal: [soft with positive bowel sounds], [ nontender to palpation], [no guarding], [no appreciable organomegaly], laparoscopic scar is intact Ext: [no gross muscle atrophy], [no edema], [no contractures] Neuro: [no focal neuro deficits] Psych: [Alert and oriented] Acute cholecystitis with sepsis status post lap cholecystectomy - Surgery recommendations appreciated - On regular diet - Pain control - Antiemetics - Invanz and likely related to ESBL total of 7 more days Acute kidney injury on chronic kidney disease stage III/IV -Nephrology recommendations appreciated -Avoid nephrotoxic agents -strict I's and O's ESBL E. coli urinary tract infection Present on admission Not catheter associated -ID recs appreciated: Invanz 7 more days -s/p PICC Paroxysmal Atrial fibrillation -No anticoagulation secondary to frequent falls -Started on beta rohan by cardiology -Hold verapamil and digoxin on discharge -Monitor blood pressure closely Acute blood loss anemia with iron deficiency anemia - IV iron completed today - Hemoglobin stable at 9.3 on discharge - CT abd and pelvis without signs of bleeding Breakthrough seizure -Continue with Seb Mercado -Seizure precautions Resolved: Hyperkalemia Toxic metabolic encephalopathy Hyponatremia, resolved Hypomagnesemia, resolved Postop constipation/ ileus, resolved metabolic acidosis, resolved [Patient to be discharged to subacute rehab [place] today. Continue Invanz for 7 more days. Continue bowel regimen. Follow-up with cardiology within 2 weeks. Follow-up with general surgery within 1 week of discharge. Repeat CBC and BMP in 3 days, to be followed up by physician at [facility]. This complex discharge took about 45 minutes to complete.] Pertinent Studies: CT abdomen and pelvis, echocardiogram, chest x-ray Procedures: Laparoscopic cholecystectomy Patient Condition at Discharge: Stable Plan - Discharge Summary New Discharge Prescriptions: New bisacodyL [Dulcolax] 10 mg PO DAILY PRN tablet. PRJoyce Reason: Constipation Metoprolol Tartrate [Lopressor] 12.5 mg PO BID tab Acetaminophen Tab [Tylenol] 650 mg PO Q6HR PRN tab PRN Reason: Mild Pain Or Fever > 100.5 Ertapenem [INVanz] 1 gm IVPB Q24H #7 bag Continue Aspirin 325 mg PO DAILY@1700 Ziprasidone [Geodon] 80 mg PO BID@0700,1999 Sertraline [Zoloft] 150 mg PO DAILY@0700 lamoTRIgine [LaMICtal] 200 mg PO TID@0700, OXcarbazepine [Trileptal] 300 mg PO BID@07,1999 Cranberry Fruit Extract [Cranberry] 1,000 mg PO DAILY@170 Docusate [Colace] 100 mg PO DAILY@0700 Clotrimazole [Lotrimin AF] 1 applic TOPICAL HS@1999 levETIRAcetam [Keppra] 500 mg PO BID@ Discontinued Verapamil HCl [Verapamil ER] 240 mg PO DAILY@0700 Digoxin [Lanoxin] 125 mcg PO DAILY@699,1999 Discharge Medication List Aspirin 325 mg PO DAILY@1700 02/13/14 [History] OXcarbazepine [Trileptal] 300 mg PO BID@0700,199902/13/14 [History] Sertraline [Zoloft] 150 mg PO DAILY@0700 02/13/14 [History] Ziprasidone [Geodon] 80 mg PO BID@0700,199902/13/14 [History] lamoTRIgine [LaMICtal] 200 mg PO TID@0700,1399,199902/13/14 [History] Cranberry Fruit Extract [Cranberry] 1,000 mg PO DAILY@1700 01/19/18 [History] Clotrimazole [Lotrimin AF] 1 applic TOPICAL HS@199911/26/18 [History] Docusate [Colace] 100 mg PO DAILY@0700 11/26/18 [History] levETIRAcetam [Keppra] 500 mg PO BID@07,199901/20/20 [History] Acetaminophen Tab [Tylenol] 650 mg PO Q6HR PRN tab 01/29/20 [Rx] Ertapenem [INVanz] 1 gm IVPB Q24H #7 bag 01/29/20 [Rx] Metoprolol Tartrate [Lopressor] 12.5 mg PO BID tab 01/29/20 [Rx] bisacodyL [Dulcolax] 10 mg PO DAILY PRN tablet. 01/29/20 [Rx] Follow up Appointment(s)/Referral(s): Oral Hernandez MD [Primary Care Provider] - 1-2 days [facility]Infusion [NON-STAFF] - 1 Week Armando Dewitt MD [STAFF PHYSICIAN] - 2 Weeks Gregorio Gasca MD [STAFF PHYSICIAN] - 1 Week Patient Instructions/Handouts: Abdominal Pain (ED) Activity/Diet/Wound Care/Special Instructions: Ertapenem 1g IV for 7 days. Repeat BMP in 3 days. FU results with at [facility]. Repeat CBC in 3 days. FU results with at [facility]. FU Cardiology with 2 weeks. Take all medications as advised. Come back to ED or call 911 for worsening abdominal pain, fever > 100.4F, chest pain, SOB, palpitations, dizziness. Discharge Disposition: TRANSFER TO SNF/ECF Pending Studies Pending Results: Repeat CBC and BMP in 3 days.
--- NOTE | 2020-01-29 13:00 | PN ---
PROGRESS NOTE DATE OF SERVICE: 01/29/2020 REASON FOR FOLLOWUP: Acute gangrenous cholecystitis and ESBL E coli urinary tract infection. INTERVAL HISTORY: Patient is currently afebrile. The patient is breathing comfortably. Denies having any chest pain or shortness of breath or cough. No nausea, no vomiting, no abdominal pain, no diarrhea. PHYSICAL EXAMINATION: Blood pressure 113/71 with a pulse of 69, temperature is 97.8, she is 95% on room air. General description is a middle-aged female, up in the chair in no distress. RESPIRATORY SYSTEM: Unlabored breathing, clear to auscultation anteriorly. HEART: S1, S2. Regular rate and rhythm. ABDOMEN: Soft, no tenderness. LABS: Hemoglobin 9.8, white count 9.3, creatinine 1.54. DIAGNOSTIC IMPRESSION AND PLAN: Patient with ESBL E coli urinary tract infection with gangrenous cholecystitis, status post cholecystectomy, planning for Invanz 1 g daily for 10 days and close outpatient followup. MMODL / IJN: [id number] /
--- NOTE | 2020-01-30 08:37 | CDI ---
Documentation Clarification Form Date: 01/30/2020 08:26:54 AM From: Ml Naik Phone: If you have a question about this query, please contact Annie Quesada [employer] at [phone] between 8am and 5pm. Admit Date: 01/22/2020 03:11:00 PM Patient Name: Valeria Pride Visit Number: [id number] Discharge Date: 01/29/2020 03:07:00 PM ATTENTION: The Clinical Documentation Specialists (CDI) and [facility] Coding Staff appreciate your assistance in clarifying documentation. Please respond to the clarification below the line at the bottom and electronically sign. The CDI & [facility] Coding staff will review the response and follow-up if needed. Please note: Queries are made part of the Legal Health Record. If you have any questions, please contact the author of this message via ITS. Dr. Gregorio Gasca Post op constipation/ileus resolved is documented in the DCS. Patients Admitting Diagnosis: Acute cholecystitis, sepsis, UTI Post-Operative Diagnosis: Acute reggie cystitis, sepsis UTI Procedure performed: Laparoscopic Cholecystectomy History/Risk Factors: abdominal pain Clinical Indicators: elevated WBC Treatment: Laparoscopic cholecystectomy and midline catheter In order to accurately reflect this patients severity of illness, please clarify if ileus is the result of the surgical procedure and a complication or was this expected? Yes ?No, expected ?Other, please specify ?Unable to determine Unable to determine MTDD
--- NOTE | 2020-02-06 09:58 | CDI ---
Documentation Clarification Form Date: 02/06/2020 09:40:39 AM From: Patricia PruittMirelesTO almonte, CCDS Admit Date: 01/22/2020 03:11:00 PM Patient Name: Valeria Pride Visit Number: [id number] Discharge Date: 01/29/2020 03:07:00 PM ATTENTION: The Clinical Documentation Specialists (CDI) and [facility] Coding Staff appreciate your assistance in clarifying documentation. Please respond to the clarification below the line at the bottom and electronically sign. The CDI & [facility] Coding staff will review the response and follow-up if needed. Please note: Queries are made part of the Legal Health Record. If you have any questions, please contact the author of this message via ITS. Dr. Lexis Kaufman: Acute Blood Loss Anemia & Iron Deficiency Anemia is documented beginning 01/21 in the Attending Physician Progress note. Subsequent Progress Notes & the 01/28 Discharge Summary also documented Acute Blood Loss Anemia with Iron Deficiency Anemia status post IV Iron. Patients Admitting Diagnosis: E Coli Sepsis secondary to Acute Gangrenous Cholecystitis with Cholelithiasis. Post-Operative Diagnosis: Same. Procedure performed 01/20: Laparoscopic Cholecystectomy History/Risk Factors: Paroxysmal Atrial Fibrillation, Hypertension, Pneumonia, Seizure Disorder, Moderate Intellectual Disability & history of ESBL UTI & Bacteremia. Clinical Indicators: Presented to the on 01/19 with RUQ abdominal pain, CT Abdomen/Pelvis revealed hydropic gallbladder with thickened gallbladder wall suggestive of Acute Cholecystitis. 01/19 Hgb: 11.9; 01/21 10.3*, 01/22: 9.4*; 01/23: 7.8*-8.2*; 01/24 7.2*-7.9*; 01/28: 9.3* 01/19 Hct: 38.6; 01/21: 32.9*, 01/22: 29.6*; 01/23: 25.0*-26.2*; 01/24: 23.3*-25.8*; 01/28 29.4* 01/23 Iron 6*, TIBC 180*, % Sat 3.33*. Treatment: IV Iron Infusion given 01/24. IV fluid bolus 1,000 mls @ 999, IV Morphine, IV Zosyn on admission. In order to accurately reflect this patients severity of illness, please clarify if the Acute Blood Loss Anemia & Iron Deficiency Anemia: Is a complication of surgical procedure Is an expected outcome of the surgical procedure Other please specify: Unable to determine (Last Revision: August 2019) expected result of Sx MTDD
== END 2020-01-29 15:07 | DRG 853 ==
LOC: EC 17:42 → 5NMEDONC 19:16 → OBSVTOIN 01-22 15:11 → 5NMEDONC 01-24 22:06
PROVIDERS: ADMIT Internal Medicine; ATTEND Internal Medicine
PROC: 05HD33Z Insertion of Infusion Device into Right Cephalic Vein, Percutaneous Approach (ICD-10-PCS; 2020-01-21)
PROC: 0FT44ZZ Resection of Gallbladder, Percutaneous Endoscopic Approach (ICD-10-PCS; principal; 2020-01-25 07:30)
DX: A41.51 Sepsis due to Escherichia coli [E. coli] (principal); N17.0 Acute kidney failure with tubular necrosis; G92 Toxic encephalopathy; N39.0 Urinary tract infection, site not specified; D62 Acute posthemorrhagic anemia; E87.1 Hypo-osmolality and hyponatremia; E87.2 Acidosis; K56.7 Ileus, unspecified; J98.11 Atelectasis; K80.00 Calculus of gallbladder with acute cholecystitis without obstruction; K82.1 Hydrops of gallbladder; N18.4 Chronic kidney disease, stage 4 (severe); Z16.12 Extended spectrum beta lactamase (ESBL) resistance; R65.20 Severe sepsis without septic shock; E83.42 Hypomagnesemia; E86.0 Dehydration; E86.1 Hypovolemia; E87.5 Hyperkalemia; E87.70 Fluid overload, unspecified; Z11.59 Encounter for screening for other viral diseases; K82.A1 Gangrene of gallbladder in cholecystitis; E87.8 Other disorders of electrolyte and fluid balance, not elsewhere classified; F25.9 Schizoaffective disorder, unspecified; F41.9 Anxiety disorder, unspecified; F42.9 Obsessive-compulsive disorder, unspecified; F71 Moderate intellectual disabilities; G40.909 Epilepsy, unspecified, not intractable, without status epilepticus; R33.9 Retention of urine, unspecified; I12.9 Hypertensive chronic kidney disease with stage 1 through stage 4 chronic kidney disease, or unspecified chronic kidney disease; I48.0 Paroxysmal atrial fibrillation; K57.90 Diverticulosis of intestine, part unspecified, without perforation or abscess without bleeding; N83.202 Unspecified ovarian cyst, left side; R09.02 Hypoxemia; R29.6 Repeated falls; Z79.01 Long term (current) use of anticoagulants; Z79.82 Long term (current) use of aspirin; Z79.899 Other long term (current) drug therapy; Z80.7 Family history of other malignant neoplasms of lymphoid, hematopoietic and related tissues; Z82.49 Family history of ischemic heart disease and other diseases of the circulatory system; Z87.440 Personal history of urinary (tract) infections; D50.9 Iron deficiency anemia, unspecified
CPT/HCPCS: 36410; 36415; 71045; 74176; 74177; 76937; 80048; 80053; 80162; 80202; 81001; 82533; 82565; 82728; 83540; 83550; 83605; 83690; 83735; 84484; 85025; 85027; 87040; 87077; 87086; 87186; 87635; 88304; 93005; 93306; 96361; 96365; 96375; 99285

== ENCOUNTER → 2020-04-03 | Outpatient (CLI) | payer MEDICARE, OTHER ==
[2020-04-03 13:22] LABS: HCT 36.9 % (34.0-46.0); HGB 11.5 gm/dL (11.4-16.0); MCH 27.8 pg (25.0-35.0); MCHC 31.1 g/dL (31.0-37.0); Mean Platelet Volume 6.3; Platelet Count 305 k/uL (150-450); RBC 4.13 m/uL (3.80-5.40); WBC 8.8 k/uL (3.8-10.6)
[2020-04-03 13:26] LABS: MCV 89.3 fL (80.0-100.0)
[2020-04-03 13:29] LABS: Protein/Creatinine Ratio,Urine 0.389
[2020-04-03 13:32] LABS: Appearance,Urine Cloudy (Clear); Bacteria,Urine Moderate /hpf; Bilirubin,Urine Negative (Negative); Blood,Urine Negative (Negative); Color,Urine Light Yellow; Glucose,Urine (UA) Negative (Negative); Hyaline Casts,Urine 1 /lpf (0-2); Ketones,Urine Negative (Negative); Leukocyte Esterase,Urine Large (Negative); Mucus,Urine Rare /hpf; Nitrite,Urine Positive (Negative); PH, Urine 5.5 (5.0-8.0); Protein,Urine Negative (Negative); RBC,Urine 2 /hpf (0-5); Specific Gravity,Urine 1.008 (1.001-1.035); Squamous Epithelial Cell,Urine 1 /hpf (0-4); Urobilinogen,Urine <2.0 mg/dL (<2.0); WBC,Urine 57 /hpf (0-5)
[2020-04-04 00:28] LABS: Ferritin 237.2 ng/mL (10.0-291.0)
[2020-04-04 00:48] LABS: % Iron Saturation 24.19 (12.00-45.00); African American GFR (CKD) 34.4 (60.0-200.0); Albumin/Globulin Ratio 1.38 (1.60-3.17); Anion Gap 11.9 mmol/L (4.00-12.00); BUN/Creat Ratio 17.78 Ratio (12.00-20.00); Calcium 9.9 mg/dL (8.7-10.3); Carbon Dioxide 22.1 mmol/L (21.6-31.8); Globulin 2.9 g/dL (1.6-3.3); Magnesium 1.9 mg/dL (1.5-2.4); Non-African American GFR(CKD) 29.6 (60.0-200.0); Potassium 4.9 mmol/L (3.5-5.5); Total Bilirubin 0.2 mg/dL (0.3-1.2); Total Protein 6.9 g/dL (6.2-8.2)
== END | disposition home or self-care (01) ==
LOC: LABWHC1 10:25
PROVIDERS: ATTEND Nurse Practitioner Family
DX: N39.0 Urinary tract infection, site not specified (principal); E83.52 Hypercalcemia; D63.1 Anemia in chronic kidney disease; N18.9 Chronic kidney disease, unspecified; R80.9 Proteinuria, unspecified
CPT/HCPCS: 36415; 80053; 81001; 82306; 82570; 82728; 83540; 83550; 83735; 83970; 84100; 84156; 85027

== ENCOUNTER → 2020-05-16 | Outpatient (CLI) | payer MEDICARE, OTHER | END | disposition home or self-care (01) | LOC: LABWHC1 12:54 | PROVIDERS: ATTEND Internal Medicine | DX: Z20.828 Contact with and (suspected) exposure to other viral communicable diseases (principal) | CPT/HCPCS: U0003; C9803 ==

== ENCOUNTER 2020-12-12 20:24 | Emergency (ER) | payer MEDICARE, OTHER ==
[2020-12-12 20:38] VITALS: RESP 16
[2020-12-12] MEDS ORDERED: ACETAMINOPHEN TAB 325 MG TAB PO STA (20:50)
--- NOTE | 2020-12-12 21:23 | ED ---
General Adult HPI - General Chief complaint: Seizure Stated complaint: Seizure Time Seen by Provider: 12/12/20 20:42 Source: patient, family Mode of arrival: wheelchair Limitations: no limitations - History of Present Illness Initial comments: 65 year-old female patient with developmental delay and history of epilepsy presents for evaluation after having three seizures today. One in the morning, one in the afternoon lasting about 4 minutes, and one around 1940 lasting about 2 minutes. She did receive a dose of ativan during the 4 minute seizure. Patient takes Keppra, Trileptal, and Lamictal. She lives in a alf and has been taking her medication. Caregiver is present and states she was recently evaluated by infectious disease for persistent UTI and was told that she would always test positive, but nothing can be done about it. She states that last seizure was over a month ago. It is unusual for her to have multiple in one day. Patient denies any headache. Reports upper abdominal pain and bloating. Denies nausea or vomiting. Patient denies any recent rash, fever, chills, cough, shortness of breath, chest pain, nausea, vomiting, diarrhea, constipation, back pain, numbness, tingling, dizziness, weakness, hematuria, dysuria, urinary urgency, urinary frequency, or any other complaints. - Related Data Home Medications Medication Instructions Recorded Confirmed Aspirin 325 mg PO DAILY 02/13/14 12/12/20 OXcarbazepine [Trileptal] 300 mg PO BID 02/13/14 12/12/20 Sertraline [Zoloft] 100 mg PO DAILY 02/13/14 12/12/20 Ziprasidone [Geodon] 80 mg PO BID 02/13/14 12/12/20 lamoTRIgine [LaMICtal] 200 mg PO TID 02/13/14 12/12/20 Cranberry Fruit Extract [Cranberry] 1,000 mg PO DAILY 01/19/18 12/12/20 Clotrimazole [Lotrimin AF] 1 applic TOPICAL HS 11/26/18 12/12/20 Docusate [Colace] 100 mg PO DAILY 11/26/18 12/12/20 Metoprolol Tartrate [Lopressor] 12.5 mg PO BID 12/12/20 12/12/20 levETIRAcetam [Keppra] 250 mg PO BID 12/12/20 12/12/20 Previous Rx's Medication Instructions Recorded Acetaminophen Tab [Tylenol] 650 mg PO Q6HR PRN tab 01/29/20 Nitrofurantoin Monohyd/M-Cryst 100 mg PO Q12HR #14 cap 12/12/20 [Macrobid] Allergies Allergy/AdvReac Type Severity Reaction Status Date / Time No Known Allergies Allergy Verified 01/20/20 21:20 Review of Systems ROS Statement: Those systems with pertinent positive or pertinent negative responses have been documented in the HPI. ROS Other: All systems not noted in ROS Statement are negative. Past Medical History Past Medical History: Atrial Fibrillation, Hypertension, Pneumonia, Seizure Disorder Additional Past Medical History / Comment(s): Vertigo, paroxysmal atrial fibrillation, moderate intellectual disability, SEPTEMBER 2016 UTI AND BACTEREMIA History of Any Multi-Drug Resistant Organisms: ESBL Date of last positivie culture/infection: 01/20/20 MDRO Source:: urine - E coli ESBL Past Surgical History: No Surgical Hx Reported Additional Past Surgical History / Comment(s): hx picc line-since removed Past Anesthesia/Blood Transfusion Reactions: No Reported Reaction Additional Past Anesthesia/Blood Transfusion Reaction / Comment(s): overnight caregiver says not that she knows of Past Psychological History: Anxiety, Schizoaffective Disorder Smoking Status: Never smoker Past Alcohol Use History: None Reported Past Drug Use History: None Reported - Past Family History Father Family Medical History: Cancer Additional Family Medical History / Comment(s): lymphoma Mother Family Medical History: AFIB, Congestive Heart Failure (CHF) General Exam Limitations: no limitations General appearance: alert, in no apparent distress, other (This is a well- developed, well-nourished adult female patient in no acute distress. Vital signs upon presentation temperature 100.1F, pulse 81, respirations 16, blood pressure 106/63, pulse ox 97% on room air.) Eye exam: Present: normal appearance, PERRL, EOMI. Absent: scleral icterus, conjunctival injection, periorbital swelling ENT exam: Present: normal exam, normal oropharynx, mucous membranes moist Respiratory exam: Present: normal lung sounds bilaterally. Absent: respiratory distress, wheezes, rales, rhonchi, stridor Cardiovascular Exam: Present: regular rate, normal rhythm, normal heart sounds. Absent: systolic murmur, diastolic murmur, rubs, gallop, clicks GI/Abdominal exam: Present: soft, normal bowel sounds. Absent: distended, tenderness, guarding, rebound, rigid Neurological exam: Present: alert, CN II-XII intact. Absent: oriented X3 (Oriented 2) Psychiatric exam: Present: normal affect, normal mood Skin exam: Present: warm, dry, intact, normal color. Absent: rash Course Vital Signs 12/12/20 12/12/20 12/13/20 20:35 23:34 00:23 Temperature 100.1 F H 97 F L Pulse Rate 84 72 Respiratory 16 16 Rate Blood Pressure 106/63 118/71 O2 Sat by Pulse 97 97 Oximetry EKG Findings - EKG Comments: EKG Findings:: EKG obtained at 2108 shows normal sinus rhythm with some inverted T waves. Ventricular rate is 79, para interval 204, QRS duration 86, QT 388, QTC 444. No significant ST elevation or depression. Did review previous EKG his symptoms and improvement. Medical Decision Making - Medical Decision Making 65-year-old female patient presented to the emergency department today for evaluation after having 3 seizures at home. Does have a history of epilepsy. Currently maintained on Trileptal, Lamictal, Keppra. Physical examination is unremarkable. She is alert and answering questions at this time. Report some upper abdominal pain. Does have chronic UTIs. Labs reviewed and did reveal evidence for urinary tract infection at this time. CT abdomen and pelvis was obtained and was negative for any acute abnormalities. We did give a loading dose of Keppra here. Sent out for Keppra and limit the levels. Also start Macrobid for the urinary tract infection. She'll be discharged follow up with the primary care physician and neurologist for further evaluation as soon as possible. Return parameters were discussed in detail. Patient and caregiver verbalizes understanding and agree with this plan. Case discussed with my attending Dr. Santiago. - Lab Data Result diagrams: 12/12/20 21:12/12/20 21: Lab Results 12/12/20 12/12/20 12/12/20 Range/Units 21: 21: 21: WBC 10.4 (3.8-10.6) k/uL RBC 3.60 L (3.80-5.40) m/uL Hgb 10.3 L (11.4-16.0) gm/dL Hct 31.7 L (34.0-46.0) % MCV 88.1 (80.0-100.0) fL MCH 28.7 (25.0-35.0) pg MCHC 32.5 (31.0-37.0) g/dL RDW 14.2 (11.5-15.5) % Plt Count 208 (150-450) k/uL MPV 7.0 Neutrophils % 79 % Lymphocytes % 9 % Monocytes % 8 % Eosinophils % 0 % Basophils % 0 % Neutrophils # 8.2 H (1.3-7.7) k/uL Lymphocytes # 0.9 L (1.0-4.8) k/uL Monocytes # 0.8 (0-1.0) k/uL Eosinophils # 0.0 (0-0.7) k/uL Basophils # 0.0 (0-0.2) k/uL PT 10.0 (9.0-12.0) sec INR 0.9 (<1.2) APTT 25.1 (22.0-30.0) sec Sodium (137-145) mmol/L Potassium (3.5-5.1) mmol/L Chloride (98-107) mmol/L Carbon Dioxide (22-30) mmol/L Anion Gap mmol/L BUN (7-17) mg/dL Creatinine (0.52-1.04) mg/dL Est GFR (CKD-EPI)AfAm (>60 ml/min/1.73 sqM) Est GFR (CKD-EPI)NonAf (>60 ml/min/1.73 sqM) Glucose (74-99) mg/dL Plasma Lactic Acid [place] (0.7-2.0) mmol/L Calcium (8.4-10.2) mg/dL Total Bilirubin (0.2-1.3) mg/dL AST (14-36) U/L ALT (4-34) U/L Alkaline Phosphatase (38-126) U/L Total Protein (6.3-8.2) g/dL Albumin (3.5-5.0) g/dL Urine Color Colorless Urine Appearance Clear (Clear) Urine pH 6.5 (5.0-8.0) Ur Specific [place] 1.009 (1.001-1.035) Urine Protein Negative (Negative) Urine Glucose (UA) Negative (Negative) Urine Ketones Negative (Negative) Urine Blood Small H (Negative) Urine Nitrite Positive H (Negative) Urine Bilirubin Negative (Negative) Urine Urobilinogen <2.0 (<2.0) mg/dL Ur Leukocyte Esterase Large H (Negative) Urine RBC 1 (0-5) /hpf Urine WBC 51 H (0-5) /hpf Urine Bacteria Few H (None) /hpf Urine Mucus Rare H (None) /hpf 12/12/20 12/12/20 Range/Units 21:07 21:07 WBC (3.8-10.6) k/uL RBC (3.80-5.40) m/uL Hgb (11.4-16.0) gm/dL Hct (34.0-46.0) % MCV (80.0-100.0) fL MCH (25.0-35.0) pg MCHC (31.0-37.0) g/dL RDW (11.5-15.5) % Plt Count (150-450) k/uL MPV Neutrophils % % Lymphocytes % % Monocytes % % Eosinophils % % Basophils % % Neutrophils # (1.3-7.7) k/uL Lymphocytes # (1.0-4.8) k/uL Monocytes # (0-1.0) k/uL Eosinophils # (0-0.7) k/uL Basophils # (0-0.2) k/uL PT (9.0-12.0) sec INR (<1.2) APTT (22.0-30.0) sec Sodium 132 L (137-145) mmol/L Potassium 5.3 H (3.5-5.1) mmol/L Chloride 100 (98-107) mmol/L Carbon Dioxide 24 (22-30) mmol/L Anion Gap 8 mmol/L BUN 27 H (7-17) mg/dL Creatinine 1.73 H (0.52-1.04) mg/dL Est GFR (CKD-EPI)AfAm 36 (>60 ml/min/1.73 sqM) Est GFR (CKD-EPI)NonAf 31 (>60 ml/min/1.73 sqM) Glucose 113 H (74-99) mg/dL Plasma Lactic Acid [place] 0.9 (0.7-2.0) mmol/L Calcium 9.5 (8.4-10.2) mg/dL Total Bilirubin 0.4 (0.2-1.3) mg/dL AST 31 (14-36) U/L ALT 15 (4-34) U/L Alkaline Phosphatase 154 H (38-126) U/L Total Protein 7.0 (6.3-8.2) g/dL Albumin 3.8 (3.5-5.0) g/dL Urine Color Urine Appearance (Clear) Urine pH (5.0-8.0) Ur Specific [place] (1.001-1.035) Urine Protein (Negative) Urine Glucose (UA) (Negative) Urine Ketones (Negative) Urine Blood (Negative) Urine Nitrite (Negative) Urine Bilirubin (Negative) Urine Urobilinogen (<2.0) mg/dL Ur Leukocyte Esterase (Negative) Urine RBC (0-5) /hpf Urine WBC (0-5) /hpf Urine Bacteria (None) /hpf Urine Mucus (None) /hpf - Radiology Data Radiology results: report reviewed, image reviewed CT abdomen and pelvis with contrast was obtained. Report is reviewed in its entirety. Impression by Dr. Arita shows mild subsegmental atelectasis at the lung bases. There are significant clearing of the pulmonary infiltrates at the lung bases compared to old exam. Normal appendix. No acute abnormality within the abdomen and pelvis. There is removal of the right side drainage catheter compared to old exam. There is left adnexal cyst unchanged. Disposition Clinical Impression: Seizure, UTI (urinary tract infection) Disposition: HOME SELF-CARE Condition: Good Instructions (If sedation given, give patient instructions): Urinary Tract Infection in Women (ED), Recurrent Seizures in Adults (ED) Additional Instructions: Take medications as directed. Follow-up with the primary care physician neurologist for further evaluation as soon as possible. Return for any new, worsening, or concerning symptoms. Prescriptions: Nitrofurantoin Monohyd/M-Cryst [Macrobid] 100 mg PO Q12HR #14 cap Is patient prescribed a controlled substance at d/c from ED?: No Referrals: Payal Montejo MD [Primary Care Provider] - 1-2 days Time of Disposition: 23:55
[2020-12-12 21:41] LABS: Basophils % (A) 0 %; Eosinophils % (A) 0 %; HCT 31.7 % (34.0-46.0); HGB 10.3 gm/dL (11.4-16.0); Lymphocytes # (A) 0.9 k/uL (1.0-4.8); Lymphocytes % (A) 9 %; MCH 28.7 pg (25.0-35.0); MCHC 32.5 g/dL (31.0-37.0); MCV 88.1 fL (80.0-100.0); Monocytes # (A) 0.8 k/uL (0-1.0); Monocytes % (A) 8 %; Neutrophils # (A) 8.2 k/uL (1.3-7.7); Neutrophils % (A) 79 %; Platelet Count 208 k/uL (150-450); RDW 14.2 % (11.5-15.5); WBC 10.4 k/uL (3.8-10.6)
[2020-12-12 21:47] LABS: INR 0.9 (<1.2); Partial Thromboplastin Time 25.1 sec (22.0-30.0)
[2020-12-12 21:51] LABS: Albumin 3.8 g/dL (3.5-5.0)
[2020-12-12 22:17] LABS: Calcium 9.5 mg/dL (8.4-10.2); Total Bilirubin 0.4 mg/dL (0.2-1.3)
--- NOTE | 2020-12-12 22:42 | CT ---
EXAMINATION TYPE: CT abdomen pelvis w con DATE OF EXAM: 12/12/2020 COMPARISON: 01/25/2020 HISTORY: abdominal pain and distention CT DLP: 1050.1 mGycm Automated exposure control for dose reduction was used. CONTRAST: Performed with IV Contrast, patient injected with 100 mL of Isovue 300. Images obtained from the diaphragm to the floor the pelvis with IV contrast. There is some interstitial infiltrate and subsegmental atelectasis at the lung bases. Heart size is f airly normal. There is no pleural effusion. There is pectus excavatum chest deformity. Liver spleen pancreas appear intact. The bile ducts are not dilated. Stomach is intact. There is 1 cm calcification at the gallbladder fossa that could be cystic duct calculus. Gallbladder is not defini tely seen. Unchanged. There is no adrenal mass. There are multiple small renal cortical cysts. There is no hydronephrosis t here is 2 mm calculus lower pole left kidney. Ureters are not dilated. Delayed images show bilateral renal excretion. There is no retroperitoneal adenopathy. Bladder distends smoothly. There is 3 cm cys t in the left adnexal region. There is no free fluid in the pelvis. There is no inguinal hernia. Appe ndix is medial and appears normal. There is no mesenteric edema. There is no ascites or free air. The re is no bowel obstruction. There is multilevel spondylotic changes in the lumbar spine. There is no compression fracture. Bony p varsha is intact. The hip joints are intact. There is some spurring of the acetabula. IMPRESSION: Mild subsegmental atelectasis at the lung bases. There is significant clearing of the pulmonary infil trates at the lung bases compared to old exam. Normal appendix. No acute abnormality within the abdomen pelvis. There is removal of the right side d rainage catheter compared to old exam. There is left adnexal cyst unchanged.
[2020-12-12 23:13] LABS: Potassium 5.3 mmol/L (3.5-5.1)
[2020-12-12 23:23] LABS: Appearance,Urine Clear (Clear); Bacteria,Urine Few /hpf; Bilirubin,Urine Negative (Negative); Blood,Urine Small (Negative); Color,Urine Colorless; Glucose,Urine (UA) Negative (Negative); Ketones,Urine Negative (Negative); Leukocyte Esterase,Urine Large (Negative); Mucus,Urine Rare /hpf; Nitrite,Urine Positive (Negative); PH, Urine 6.5 (5.0-8.0); Protein,Urine Negative (Negative); RBC,Urine 1 /hpf (0-5); Specific Gravity,Urine 1.009 (1.001-1.035); Urobilinogen,Urine <2.0 mg/dL (<2.0); WBC,Urine 51 /hpf (0-5)
[2020-12-12 23:35] VITALS: TEMP 97
[2020-12-12] MEDS ORDERED: NITROFURANTOIN MONOHYD/M-CRYST 100 MG CAP PO STA (23:53)
[2020-12-12] MEDS ORDERED: levETIRAcetam 500 MG TAB PO STA (23:53)
[2020-12-13 00:24] VITALS: BP 118/71; PULSE 72
[2020-12-15 08:42] LABS: Levetiracetam (Keppra) 14.3 ug/mL (3.0-60.0)
[2020-12-15 08:43] LABS: Lamotrigine (Lamictal) 12.3 ug/mL (2.0-15.0)
== END 2020-12-13 00:24 | disposition home or self-care (01) ==
LOC: EC 20:24
DX: G40.909 Epilepsy, unspecified, not intractable, without status epilepticus (principal); N39.0 Urinary tract infection, site not specified; I10 Essential (primary) hypertension; I48.91 Unspecified atrial fibrillation; F41.9 Anxiety disorder, unspecified; F25.9 Schizoaffective disorder, unspecified; Z79.899 Other long term (current) drug therapy; Z79.82 Long term (current) use of aspirin
CPT/HCPCS: 36415; 93005; 80053; 80175; 80177; 83605; 85025; 85610; 85730; 81001; 87040; 87086; 74177; 99284; Q9967; 87077; 87186

== ENCOUNTER → 2021-02-12 | Outpatient (CLI) | payer MEDICARE, OTHER ==
[2021-02-13 07:19] LABS: Lamotrigine (Lamictal) 8.5 ug/mL (2.0-15.0)
[2021-02-13 07:23] LABS: Levetiracetam (Keppra) 8.8 ug/mL (3.0-60.0)
== END | disposition home or self-care (01) ==
LOC: LABWHC1 08:23
PROVIDERS: ATTEND Psychiatry & Neurology Neurology
DX: G40.209 Localization-related (focal) (partial) symptomatic epilepsy and epileptic syndromes with complex partial seizures, not intractable, without status epilepticus (principal)
CPT/HCPCS: 36415; 80175; 80177; 80183; 84295

== ENCOUNTER 2021-03-13 18:47 | Inpatient (IN) | payer MEDICARE, OTHER ==
[2021-03-13] MEDS ORDERED: levETIRAcetam IV 500 MG in SALINE 1 100ML.BAG IVPB STA (19:02)
[2021-03-13] MEDS ORDERED: LORazepam 2 MG/ML INJ IV STA (19:04)
[2021-03-13 19:24] LABS: Anisocytosis Slight; Basophils # (A) 0.1 k/uL (0-0.2); Basophils % (A) 1 %; Eosinophils # (A) 0.1 k/uL (0-0.7); Eosinophils % (A) 1 %; HGB 10.6 gm/dL (11.4-16.0); Hypochromasia Slight; Lymphocytes # (A) 1.3 k/uL (1.0-4.8); Lymphocytes % (A) 12 %; MCH 27.4 pg (25.0-35.0); MCHC 32.2 g/dL (31.0-37.0); MCV 84.9 fL (80.0-100.0); Mean Platelet Volume 6.3; Monocytes # (A) 0.4 k/uL (0-1.0); Monocytes % (A) 4 %; Neutrophils # (A) 8.1 k/uL (1.3-7.7); Neutrophils % (A) 80 %; Platelet Count 371 k/uL (150-450); RBC 3.88 m/uL (3.80-5.40); RDW 16.1 % (11.5-15.5); WBC 10.2 k/uL (3.8-10.6)
[2021-03-13 19:36] LABS: Albumin 3.7 g/dL (3.5-5.0); Calcium 9.7 mg/dL (8.4-10.2); Potassium 4.7 mmol/L (3.5-5.1); Total Bilirubin 0.3 mg/dL (0.2-1.3); Total Protein 7.3 g/dL (6.3-8.2)
--- NOTE | 2021-03-13 20:33 | ED ---
Seizure HPI - General Chief Complaint: Seizure Stated Complaint: Seizure Source: patient Mode of arrival: EMS Limitations: no limitations - History of Present Illness Initial Comments: Patient is a 65-year-old female past medical history of mild cognitive delay, seizure disorder who presents to the emergency Department with breakthrough seizures. Caretakers at bedside and provides the history. She does live at a independent apartments however does have 24-hour care. Food Service Director states that she infrequently has breakthrough seizures. She did have 3 at home today. Denies any injuries during the episodes. They did give her 0.5 of Ativan and called EMS after she had her third one. Patient presents and does have a seizure in the exam room prior to my evaluation. IV had been established and she was given 2 mg Ativan IV. She has been given all of her medications as di rected. Follows with Dr. Winkler from neurology. No reported fevers or recent head injuries. No recent medication changes. No other alleviating, precipitating or modifying factors - Related Data Home Medications Medication Instructions Recorded Confirmed Aspirin 325 mg PO DAILY 02/13/14 03/13/21 OXcarbazepine [Trileptal] 300 mg PO BID 02/13/14 03/13/21 Sertraline [Zoloft] 150 mg PO DAILY 02/13/14 03/13/21 Ziprasidone [Geodon] 80 mg PO BID 02/13/14 03/13/21 lamoTRIgine [LaMICtal] 200 mg PO TID 02/13/14 03/13/21 Cranberry Fruit Extract [Cranberry] 1,000 mg PO DAILY 01/19/18 03/13/21 Docusate [Colace] 100 mg PO DAILY 11/26/18 03/13/21 Metoprolol Tartrate [Lopressor] 12.5 mg PO BID 12/12/20 03/13/21 levETIRAcetam [Keppra] 250 mg PO BID 12/12/20 03/13/21 Ferrous Sulfate [Feosol] 325 mg PO BID 03/13/21 03/13/21 LORazepam 1 mg SL DAILY PRN 03/13/21 03/13/21 Multivitamins, Thera [Multivitamin 1 tab PO DAILY 03/13/21 03/13/21 (formulary)] Allergies Allergy/AdvReac Type Severity Reaction Status Date / Time No Known Allergies Allergy Verified 03/13/21 19:44 Review of Systems ROS Statement: Those systems with pertinent positive or pertinent negative responses have been documented in the HPI. ROS Other: All systems not noted in ROS Statement are negative. Past Medical History Past Medical History: Atrial Fibrillation, Hypertension, Pneumonia, Seizure Disorder Additional Past Medical History / Comment(s): Vertigo, paroxysmal atrial fibrillation, moderate intellectual disability, SEPTEMBER 2016 UTI AND BACTEREMIA History of Any Multi-Drug Resistant Organisms: ESBL, MRSA Date of last positivie culture/infection: 12/12/20 E.coli ESBL; 06/21/18 MRSA MDRO Source:: Urine-ESBL; Groin-MRSA Past Surgical History: No Surgical Hx Reported Additional Past Surgical History / Comment(s): hx picc line-since removed Past Anesthesia/Blood Transfusion Reactions: No Reported Reaction Additional Past Anesthesia/Blood Transfusion Reaction / Comment(s): assurance services manager health care says not that she knows of Past Psychological History: Anxiety, Schizoaffective Disorder Smoking Status: Never smoker Past Alcohol Use History: None Reported Past Drug Use History: None Reported - Past Family History Father Family Medical History: Cancer Additional Family Medical History / Comment(s): lymphoma Mother Family Medical History: AFIB, Congestive Heart Failure (CHF) General Exam Limitations: no limitations Course Vital Signs 03/13/21 18:54 Temperature 98 F Pulse Rate 92 Respiratory 20 Rate Blood Pressure 164/83 O2 Sat by Pulse 95 Oximetry Medical Decision Making - Medical Decision Making Upon arrival the patient is placed in room 5. There history of physical exam was performed. IV is established the patient was given 2 mg of Ativan. L aboratory says her conducted. Due to the multiple seizure activity, patient is sent for a CT of her brain. Laboratory studies are reviewed. Creatinine 1.7 which is the patient's baseline. UA is positive for nitrates, large leukocyte esterase and 20 white blood cells. Previous culture demonstrates ESDL. Patient was given a dose of Zosyn as this may contribute to her breakthrough seizures. As the patient has had some any today I did recommend admission for which the sister and guardian agreed to. Patient was given a loading dose of Keppra. I did offer all of her home medications. Patient remained in stable condition without any further seizures awaiting a bed on the floor - Lab Data Result diagrams: 03/13/21 19:12 03/13/21 19:12 Lab Results 03/13/21 03/13/21 03/13/21 Range/Units 19:12 19:12 19:12 WBC 10.2 (3.8-10.6) k/uL RBC 3.88 (3.80-5.40) m/uL Hgb 10.6 L (11.4-16.0) gm/dL Hct 33.0 L (34.0-46.0) % MCV 84.9 (80.0-100.0) fL MCH 27.4 (25.0-35.0) pg MCHC 32.2 (31.0-37.0) g/dL RDW 16.1 H (11.5-15.5) % Plt Count 371 (150-450) k/uL MPV 6.3 Neutrophils % 80 % Lymphocytes % 12 % Monocytes % 4 % Eosinophils % 1 % Basophils % 1 % Neutrophils # 8.1 H (1.3-7.7) k/uL Lymphocytes # 1.3 (1.0-4.8) k/uL Monocytes # 0.4 (0-1.0) k/uL Eosinophils # 0.1 (0-0.7) k/uL Basophils # 0.1 (0-0.2) k/uL Hypochromasia Slight Anisocytosis Slight Sodium 133 L (137-145) mmol/L Potassium 4.7 (3.5-5.1) mmol/L Chloride 102 (98-107) mmol/L Carbon Dioxide 19 L (22-30) mmol/L Anion Gap 12 mmol/L BUN 40 H (7-17) mg/dL Creatinine 1.76 H (0.52-1.04) mg/dL Est GFR (CKD-EPI)AfAm 35 (>60 ml/min/1.73 sqM) Est GFR (CKD-EPI)NonAf 30 (>60 ml/min/1.73 sqM) Glucose 131 H (74-99) mg/dL Calcium 9.7 (8.4-10.2) mg/dL Magnesium (1.6-2.3) mg/dL Total Bilirubin 0.3 (0.2-1.3) mg/dL AST 24 (14-36) U/L ALT 14 (4-34) U/L Alkaline Phosphatase 200 H (38-126) U/L Total Protein 7.3 (6.3-8.2) g/dL Albumin 3.7 (3.5-5.0) g/dL Urine Color Light Yellow Urine Appearance Clear (Clear) Urine pH 5.5 (5.0-8.0) Ur Specific [place] 1.005 (1.001-1.035) Urine Protein Negative (Negative) Urine Glucose (UA) Negative (Negative) Urine Ketones Negative (Negative) Urine Blood Negative (Negative) Urine Nitrite Positive H (Negative) Urine Bilirubin Negative (Negative) Urine Urobilinogen <2.0 (<2.0) mg/dL Ur Leukocyte Esterase Large H (Negative) Urine RBC 1 (0-5) /hpf Urine WBC 20 H (0-5) /hpf Urine Bacteria Few H (None) /hpf 03/13/21 Range/Units 19:12 WBC (3.8-10.6) k/uL RBC (3.80-5.40) m/uL Hgb (11.4-16.0) gm/dL Hct (34.0-46.0) % MCV (80.0-100.0) fL MCH (25.0-35.0) pg MCHC (31.0-37.0) g/dL RDW (11.5-15.5) % Plt Count (150-450) k/uL MPV Neutrophils % % Lymphocytes % % Monocytes % % Eosinophils % % Basophils % % Neutrophils # (1.3-7.7) k/uL Lymphocytes # (1.0-4.8) k/uL Monocytes # (0-1.0) k/uL Eosinophils # (0-0.7) k/uL Basophils # (0-0.2) k/uL Hypochromasia Anisocytosis Sodium (137-145) mmol/L Potassium (3.5-5.1) mmol/L Chloride (98-107) mmol/L Carbon Dioxide (22-30) mmol/L Anion Gap mmol/L BUN (7-17) mg/dL Creatinine (0.52-1.04) mg/dL Est GFR (CKD-EPI)AfAm (>60 ml/min/1.73 sqM) Est GFR (CKD-EPI)NonAf (>60 ml/min/1.73 sqM) Glucose (74-99) mg/dL Calcium (8.4-10.2) mg/dL Magnesium 1.9 (1.6-2.3) mg/dL Total Bilirubin (0.2-1.3) mg/dL AST (14-36) U/L ALT (4-34) U/L Alkaline Phosphatase (38-126) U/L Total Protein (6.3-8.2) g/dL Albumin (3.5-5.0) g/dL Urine Color Urine Appearance (Clear) Urine pH (5.0-8.0) Ur Specific [place] (1.001-1.035) Urine Protein (Negative) Urine Glucose (UA) (Negative) Urine Ketones (Negative) Urine Blood (Negative) Urine Nitrite (Negative) Urine Bilirubin (Negative) Urine Urobilinogen (<2.0) mg/dL Ur Leukocyte Esterase (Negative) Urine RBC (0-5) /hpf Urine WBC (0-5) /hpf Urine Bacteria (None) /hpf - EKG Data EKG Comments: EKG demonstrates sinus rhythm with first-degree AV block. Rate of 98. TN interval 214. QRS 82. QTC of 469. No acute ST segment elevations or depressions concerning for ischemic changes. Significant baseline artifact Disposition Clinical Impression: UTI due to extended-spectrum beta lactamase (ESBL) producing Escherichia coli, Recurrent seizures Disposition: ADMITTED IP TO THIS HOSP Condition: Stable Is patient prescribed a controlled substance at d/c from ED?: No Decision to Admit Reason: Admit from EC Decision Date: 03/13/21 Decision Time: 21:59
--- NOTE | 2021-03-13 21:00 | CT ---
EXAMINATION TYPE: CT brain wo con DATE OF EXAM: 03/13/2021 HISTORY: Seizure activity. CT DLP: 1158.4 mGycm. Automated Exposure Control for Dose Reduction was Utilized. TECHNIQUE: CT scan of the head is performed without contrast. COMPARISON: 11/26/2018 FINDINGS: There is no acute intracranial hemorrhage, midline shift, or mass effect identified. The ventricles, sulci, and cisterns are normal in size and configuration. No extra-axial fluid collection. No depressed calvarial fracture. Visualized sinuses and mastoid air cells are clear. IMPRESSION: No acute intracranial hemorrhage, midline shift, or mass effect.
[2021-03-13 21:21] LABS: Appearance,Urine Clear (Clear); Bacteria,Urine Few /hpf; Bilirubin,Urine Negative (Negative); Blood,Urine Negative (Negative); Color,Urine Light Yellow; Glucose,Urine (UA) Negative (Negative); Ketones,Urine Negative (Negative); Leukocyte Esterase,Urine Large (Negative); Nitrite,Urine Positive (Negative); PH, Urine 5.5 (5.0-8.0); Protein,Urine Negative (Negative); RBC,Urine 1 /hpf (0-5); Specific Gravity,Urine 1.005 (1.001-1.035); Urobilinogen,Urine <2.0 mg/dL (<2.0); WBC,Urine 20 /hpf (0-5)
[2021-03-13] MEDS ORDERED: NALOXONE 0.4 MG/ML 1 ML VIAL IV PRN (21:59)
[2021-03-13] MEDS ORDERED: LORazepam 2 MG/ML INJ IM PRN (22:31)
--- NOTE | 2021-03-13 22:31 | P.HPIM ---
History of Present Illness H&P Date: 03/13/21 Chief Complaint: Seizures This is a 65-year-old white female who lives at assisted living. She was brought in because of few episodes of seizure-like activity. Staff reported 3 episodes at the assisted living. In the emergency room she also had an episode of seizure. She received Ativan. Currently she is awake and at baseline. She is not a very good historian. Her sister is at baseline. There was no reported fever, no vomiting, no abdominal pain no chest pain no hematuria or dysuria. Patient has history of recurrent UTIs with ESBL. Review of Systems 10 systems reviewed, pertinent positive and negative findings as in HPI. No chest pain no abdominal pain Past Medical History Past Medical History: Atrial Fibrillation, Hypertension, Pneumonia, Seizure Disorder Additional Past Medical History / Comment(s): Vertigo, paroxysmal atrial fibrillation, moderate intellectual disability, SEPTEMBER 2016 UTI AND BACTEREMIA History of Any Multi-Drug Resistant Organisms: ESBL, MRSA Date of last positivie culture/infection: 12/12/20 E.coli ESBL; 06/21/18 MRSA MDRO Source:: Urine-ESBL; Groin-MRSA Past Surgical History: No Surgical Hx Reported Additional Past Surgical History / Comment(s): hx picc line-since removed Past Anesthesia/Blood Transfusion Reactions: No Reported Reaction Additional Past Anesthesia/Blood Transfusion Reaction / Comment(s): director of career services says not that she knows of Past Psychological History: Anxiety, Schizoaffective Disorder Smoking Status: Never smoker Past Alcohol Use History: None Reported Past Drug Use History: None Reported - Past Family History Father Family Medical History: Cancer Additional Family Medical History / Comment(s): lymphoma Mother Family Medical History: AFIB, Congestive Heart Failure (CHF) Medications and Allergies Home Medications Medication Instructions Recorded Confirmed Type Aspirin 325 mg PO DAILY 02/13/14 03/13/21 History OXcarbazepine [Trileptal] 300 mg PO BID 02/13/14 03/13/21 History Sertraline [Zoloft] 150 mg PO DAILY 02/13/14 03/13/21 History Ziprasidone [Geodon] 80 mg PO BID 02/13/14 03/13/21 History lamoTRIgine [LaMICtal] 200 mg PO TID 02/13/14 03/13/21 History Cranberry Fruit Extract [Cranberry] 1,000 mg PO DAILY 01/19/18 03/13/21 History Docusate [Colace] 100 mg PO DAILY 11/26/18 03/13/21 History Metoprolol Tartrate [Lopressor] 12.5 mg PO BID 12/12/20 03/13/21 History levETIRAcetam [Keppra] 250 mg PO BID 12/12/20 03/13/21 History Ferrous Sulfate [Feosol] 325 mg PO BID 03/13/21 03/13/21 History LORazepam 1 mg SL DAILY PRN 03/13/21 03/13/21 History Multivitamins, Thera [Multivitamin 1 tab PO DAILY 03/13/21 03/13/21 History (formulary)] Allergies Allergy/AdvReac Type Severity Reaction Status Date / Time No Known Allergies Allergy Verified 03/13/21 19:44 Physical Exam Vitals: Vital Signs Temp Pulse Resp BP Pulse Ox 03/13/21 22:14 88 16 152/84 99 03/13/21 18:54 98 F 92 20 164/83 95 Intake and Output 03/13/21 03/13/21 03/13/21 06:59 14:59 22:59 Other: Weight 63.503 kg Constitutional: No acute distress, conversant, pleasant Eyes: Anicteric sclerae, moist conjunctiva, no lid-lag, PERRLA ENMT: NC/AT,Oropharynx clear Neck:Supple, FROM, no masses, or JVD Lungs: Clear to auscultation, Clear to percussion, Normal respiratory effort, no accessory muscle use Cardiovascular: Heart regular in rate and rhythm, No murmurs, gallops, or rubs no peripheral edema Abdominal: Soft Nontender, non distended, no guarding, no rebound or rigidity, Normoactive bowel sounds Skin: Normal temperature, tone, texture, turgor, No induration No subcutaneous nodules, No rash, lesions, No ulcers Extremities:No digital cyanosis No clubbing, Pedal pulses intact and sy mmetrical Radial pulses intact and symmetrical Normal gait and station, No calf tenderness Psychiatric: Partially oriented Neuro: Muscles Strength 5/5 in all 4 extremities, Sensation to light touch grossly present throughout, Cranial nerves II-XII grossly intact. No focal sensory deficits Results CBC & Chem 7: 03/13/21 19:12 03/13/21 19:12 Labs: Abnormal Lab Results - Last 24 Hours (Table) 03/13/21 03/13/21 03/13/21 Range/Units 19:12 19:12 19:12 Hgb 10.6 L (11.4-16.0) gm/dL Hct 33.0 L (34.0-46.0) % RDW 16.1 H (11.5-15.5) % Neutrophils # 8.1 H (1.3-7.7) k/uL Sodium 133 L (137-145) mmol/L Carbon Dioxide 19 L (22-30) mmol/L BUN 40 H (7-17) mg/dL Creatinine 1.76 H (0.52-1.04) mg/dL Glucose 131 H (74-99) mg/dL Alkaline Phosphatase 200 H (38-126) U/L Urine Nitrite Positive H (Negative) Ur Leukocyte Esterase Large H (Negative) Urine WBC 20 H (0-5) /hpf Urine Bacteria Few H (None) /hpf Assessment and Plan Plan: 1. Seizures: Continue outpatient medications with Trileptal, Lamictal and Keppra. When necessary Ativan. Neurology consultation. Brain CT negative for acute findings. 2. Acute UTI unspecified organism or location: Patient has history of ESBL UTI was sensitive to Zosyn in the past. We will start Zosyn. Obtain cultures. 3. Depression: Continue Zoloft 4. Essential hypertension: Continue metoprolol 5. Mentally challenged: Continue supportive care DVT prophylaxis: SCDs Disposition: To assisted living once clinically better Treatment plan discussed with the patient and her sister at bedside
[2021-03-14] MEDS: OXcarbazepine 300 MG TAB PO SCH ×3 (00:28→21:50)
[2021-03-14] MEDS: MULTIVITAMINS, THERA 1 EACH TAB PO SCH ×2 (00:28→07:48)
[2021-03-14] MEDS: lamoTRIgine 100 MG TAB PO SCH ×4 (00:29→21:49)
[2021-03-14] MEDS: ZIPRASIDONE 80 MG CAP PO SCH ×3 (00:29→22:03)
[2021-03-14] MEDS: SODIUM CHLORIDE 0.9% 1,000 ML IV SCH ×2 (00:29→12:04)
[2021-03-14] MEDS: METOPROLOL TARTRATE 12.5 MG TAB PO SCH ×3 (00:47→21:50)
[2021-03-14 06:27] LABS: Anisocytosis Slight; Basophils % (A) 0 %; Eosinophils % (A) 0 %; HCT 32.6 % (34.0-46.0); HGB 10.5 gm/dL (11.4-16.0); Lymphocytes # (A) 0.9 k/uL (1.0-4.8); Lymphocytes % (A) 9 %; MCH 26.9 pg (25.0-35.0); MCHC 32.2 g/dL (31.0-37.0); MCV 83.7 fL (80.0-100.0); Mean Platelet Volume 6.2; Monocytes # (A) 0.8 k/uL (0-1.0); Monocytes % (A) 8 %; Neutrophils # (A) 8.4 k/uL (1.3-7.7); Neutrophils % (A) 79 %; Platelet Count 303 k/uL (150-450); RDW 16.1 % (11.5-15.5); WBC 10.6 k/uL (3.8-10.6)
[2021-03-14 06:40] LABS: ALT 12 U/L (4-34); AST 22 U/L (14-36); African American GFR (CKD) 35 (>60 ml/min/1.73 sqM); Albumin 3.6 g/dL (3.5-5.0); Albumin/Globulin Ratio 1.1; Alkaline Phosphatase 157 U/L (38-126); Anion Gap 10 mmol/L; Blood Urea Nitrogen 36 mg/dL (7-17); Calcium 10.1 mg/dL (8.4-10.2); Carbon Dioxide 22 mmol/L (22-30); Chloride 105 mmol/L (98-107); Globulin 3.4 g/dL; Glucose 103 mg/dL (74-99); Non-African American GFR(CKD) 30 (>60 ml/min/1.73 sqM); Potassium 4.5 mmol/L (3.5-5.1); Sodium 137 mmol/L (137-145); Total Bilirubin 0.2 mg/dL (0.2-1.3)
[2021-03-14] MEDS: PIPERACILLIN-TAZOBACTAM 3.375 GM in SODIUM CHLORIDE 0.9% 100 ML IVPB SCH ×2 (07:48→15:24)
[2021-03-14] MEDS: FERROUS SULFATE 325 MG TAB PO SCH ×2 (07:48→21:49)
[2021-03-14] MEDS: DOCUSATE 100 MG CAP PO SCH (07:48)
[2021-03-14] MEDS: ASPIRIN 325 MG TAB PO SCH (07:48)
[2021-03-14] MEDS: SERTRALINE 100 MG TAB PO SCH (09:59)
[2021-03-14] MEDS: levETIRAcetam 250 MG TAB PO SCH ×2 (09:59→21:50)
--- NOTE | 2021-03-14 16:34 | P.PN ---
Subjective Progress Note Date: 03/14/21 Principal diagnosis: Breakthrough seizures Interval history: Patient is a 65-year-old female with baseline cognitive impairment. Patient currently resides at an assisted living facility. She was brought into the emergency room with episodes of seizure-like activity. Staff at assisted living facility reported 3 episodes of seizure-like activity. Patient was admitted to the hospital and diagnosed with breakthrough seizures, UTI. 03/14/2021: Patient seated exam and she appears to be at baseline mentation without behavioral disturbance. She has not had any breakthrough seizures reported per nursing staff over the last 24 hours. He is awaiting neurology consultation. We have continued treatment with antibiotics for UTI Objective - Vital Signs Vital signs: Vital Signs Temp 98.8 F 03/14/21 13:37 Pulse 88 03/14/21 13:37 Resp 16 03/14/21 13:37 BP 105/64 03/14/21 13:37 Pulse Ox 94 L 03/14/21 13:37 Intake & Output 03/13/21 03/14/21 03/14/21 18:59 06:59 18:59 Intake Total 400 600 Output Total 1300 500 Balance -900 100 Weight 63.503 kg 63.503 kg Intake: Oral 400 600 Output: Urine 1300 500 Other: Voiding Method Bedside Commode Bedside Commode # Voids 1 1 - Exam Constitutional: No acute distress, conversant, pleasant Eyes: Anicteric sclerae, moist conjunctiva, no lid-lag, PERRLA ENMT: NC/AT,Oropharynx clear Neck:Supple, FROM, no masses, or JVD Lungs: Clear to auscultation, Clear to percussion, Normal respiratory effort, no accessory muscle use Cardiovascular: Heart regular in rate and rhythm, No murmurs, gallops, or rubs no peripheral edema Abdominal: Soft Nontender, non distended, no guarding, no rebound or rigidity, Normoactive bowel sounds Skin: Normal temperature, tone, texture, turgor, No induration No subcutaneous nodules, No rash, lesions, No ulcers Extremities:No digital cyanosis No clubbing, Pedal pulses intact and symmetr ical Radial pulses intact and symmetrical Normal gait and station, No calf tenderness Psychiatric: Partially oriented Neuro: Muscles Strength 5/5 in all 4 extremities, Sensation to light touch gr ossly present throughout, Cranial nerves II-XII grossly intact. No focal sensory deficits - Labs CBC & Chem 7: 03/14/21 05:53 03/14/21 05:53 Labs: Abnormal Lab Results - Last 24 Hours (Table) 03/13/21 03/13/21 03/13/21 Range/Units 19:12 19:12 19:12 Hgb 10.6 L (11.4-16.0) gm/dL Hct 33.0 L (34.0-46.0) % RDW 16.1 H (11.5-15.5) % Neutrophils # 8.1 H (1.3-7.7) k/uL Lymphocytes # (1.0-4.8) k/uL Sodium 133 L (137-145) mmol/L Carbon Dioxide 19 L (22-30) mmol/L BUN 40 H (7-17) mg/dL Creatinine 1.76 H (0.52-1.04) mg/dL Glucose 131 H (74-99) mg/dL Alkaline Phosphatase 200 H (38-126) U/L Urine Nitrite Positive H (Negative) Ur Leukocyte Esterase Large H (Negative) Urine WBC 20 H (0-5) /hpf Urine Bacteria Few H (None) /hpf 03/14/21 03/14/21 Range/Units 05:53 05:53 Hgb 10.5 L (11.4-16.0) gm/dL Hct 32.6 L (34.0-46.0) % RDW 16.1 H (11.5-15.5) % Neutrophils # 8.4 H (1.3-7.7) k/uL Lymphocytes # 0.9 L (1.0-4.8) k/uL Sodium (137-145) mmol/L Carbon Dioxide (22-30) mmol/L BUN 36 H (7-17) mg/dL Creatinine 1.76 H (0.52-1.04) mg/dL Glucose 103 H (74-99) mg/dL Alkaline Phosphatase 157 H (38-126) U/L Urine Nitrite (Negative) Ur Leukocyte Esterase (Negative) Urine WBC (0-5) /hpf Urine Bacteria (None) /hpf Assessment and Plan Assessment: Breakthrough seizures -Patient's home medications outpatient include Trileptal, Lamictal, Keppra. Patient reportedly had a breakthrough seizures at assisted care facility. Patient admitted to the hospital. CT brain negative for acute findings. Neurology consultation is currently pending. Patient has not had any reported seizures in the last 24 hours Acute UTI -Patient did have abnormal urinalysis result. Patient does have a medical history of ESBL UTI and was previously sensitive to Zosyn. We'll maintain patient on Zosyn until final culture results Depression: Patient's home medications include Zoloft Essential hypertension Continue with metoprolol patient blood pressures currently stable Cognitive impairment Patient has baseline cognitive impairment and is mentally challenged. No behavioral disturbances at this time patient appears to be at baseline mentation Disposition: Patient will be charged back to her assisted facility when she is medically stable. We are still waiting for neurology consultation. Continue treatment for urinary tract infection (1) UTI due to extended-spectrum beta lactamase (ESBL) producing Escherichia coli Current Visit: Yes Status: Acute Code(s): N39.0 - URINARY TRACT INFECTION, SITE NOT SPECIFIED; B96.29 - OTH ESCHERICHIA COLI THE CAUSE OF DISEASES CLASSD ELSWHR; Z16.12 - EXTENDED SPECTRUM BETA LACTAMASE (ESBL) RESISTANCE SNOMED Code(s): 105318530 (2) Breakthrough seizure Current Visit: No Status: Acute Code(s): G40.919 - EPILEPSY, UNSP, INTRA CTABLE, WITHOUT STATUS EPILEPTICUS SNOMED Code(s): 654940803
[2021-03-14] MEDS ORDERED: PIPERACILLIN-TAZOBACTAM 3.375 GM in SODIUM CHLORIDE 0.9% 100 ML IVPB SCH (23:00)
[2021-03-15] MEDS: PIPERACILLIN-TAZOBACTAM 3.375 GM in SODIUM CHLORIDE 0.9% 100 ML IVPB SCH ×3 (00:05→15:21)
[2021-03-15] MEDS: SODIUM CHLORIDE 0.9% 1,000 ML IV SCH ×2 (02:58→14:27)
--- NOTE | 2021-03-15 07:07 | P.CNNES ---
History of Present Illness Consult date: 03/14/21 Reason for Consult: breakthrough seizure History of Present Illness: The patient is a 65-year-old female who is seen in neurologic cons ultation on March 14, 2021, via teleneurology. History is obtained entirely from the chart. Patient is reportedly cognitively impaired and lives in an assisted living facility. She reportedly had a few episodes of seizure-like activity at the facility and so, EMS was called. Patient also reportedly had a seizure in the emergency department. The patient herself reports that she does not have seizures frequently. In reviewing the notes, the patient reportedly has frequent urinary tract infections. Patient is taking several antiepileptic medications. Workup in the emergency department revealed a CT scan which was without acute hemorrhage and infarct. Urinalysis is positive for infection. Past Medical History Past Medical History: Atrial Fibrillation, Hypertension, Pneumonia, Seizure Disorder Additional Past Medical History / Comment(s): Vertigo, paroxysmal atrial fibrillation, moderate intellectual disability, SEPTEMBER 2016 UTI AND BACTEREMIA. Shingles, anemia History of Any Multi-Drug Resistant Organisms: ESBL, MRSA Date of last positivie culture/infection: 12/12/20 E.coli ESBL; 06/21/18 MRSA MDRO Source:: Urine-ESBL; Groin-MRSA Past Surgical History: Cholecystectomy Additional Past Surgical History / Comment(s): hx picc line-since removed Past Anesthesia/Blood Transfusion Reactions: No Reported Reaction Additional Past Anesthesia/Blood Transfusion Reaction / Comment(s): care navigator says not that she knows of Past Psychological History: Anxiety, Schizoaffective Disorder Additional Psychological History / Comment(s): OCD, auditory hallucinations, needs reassurance that she is ok. depressive type schizoaffective. Single. Has a sister as her guardian. Does have 24-hour care in her apartment. No animals in the apartment. No travel history Smoking Status: Never smoker Past Alcohol Use History: None Reported Additional Past Alcohol Use History / Comment(s): Patient is a lifelong nonsmoker, no illicit drug use, alcohol use. Patient lives in her own apartment at [facility] has a room mate and 24-hour care. There are no pets in the home. No recent travel.has walker, rollator, cane showr chair if needed Past Drug Use History: None Reported - Past Family History Father Family Medical History: Cancer Additional Family Medical History / Comment(s): lymphoma Mother Family Medical History: AFIB, Congestive Heart Failure (CHF) Medications and Allergies Home Medications Medication Instructions Recorded Confirmed Type Aspirin 325 mg PO DAILY 02/13/14 03/13/21 History OXcarbazepine [Trileptal] 300 mg PO BID 02/13/14 03/13/21 History Sertraline [Zoloft] 150 mg PO DAILY 02/13/14 03/13/21 History Ziprasidone [Geodon] 80 mg PO BID 02/13/14 03/13/21 History lamoTRIgine [LaMICtal] 200 mg PO TID 02/13/14 03/13/21 History Cranberry Fruit Extract [Cranberry] 1,000 mg PO DAILY 01/19/18 03/13/21 History Docusate [Colace] 100 mg PO DAILY 11/26/18 03/13/21 History Metoprolol Tartrate [Lopressor] 12.5 mg PO BID 12/12/20 03/13/21 History levETIRAcetam [Keppra] 250 mg PO BID 12/12/20 03/13/21 History Ferrous Sulfate [Feosol] 325 mg PO BID 03/13/21 03/13/21 History LORazepam 1 mg SL DAILY PRN 03/13/21 03/13/21 History Multivitamins, Thera [Multivitamin 1 tab PO DAILY 03/13/21 03/13/21 History (formulary)] Allergies Allergy/AdvReac Type Severity Reaction Status Date / Time No Known Allergies Allergy Verified 03/13/21 19:44 Physical Examination - Vital Signs Vital Signs: Vital Signs Temp Pulse Pulse Resp BP BP Pulse Ox 03/14/21 13:37 98.8 F 88 16 105/64 94 L 03/14/21 08:00 19 03/14/21 07:00 97.5 F L 97 19 152/80 98 03/14/21 01:06 98.6 F 91 20 147/89 95 03/14/21 00:00 98 18 03/13/21 23:21 97.6 F 98 18 128/77 98 03/13/21 22:14 88 16 152/84 99 03/13/21 18:54 98 F 92 20 164/83 95 Intake and Output 03/14/21 03/14/21 03/14/21 06:59 14:59 22:59 Intake Total 400 600 Output Total 1300 500 Balance -900 100 Intake: Oral 400 600 Output: Urine 1300 500 Other: Voiding Method Bedside Commode Bedside Commode # Voids 1 1 Weight 63.503 kg Gen.: The patient is reclining in the bed. She is well-nourished,well-developed and in no acute distress. HEENT: Head is atraumatic, normocephalic. Fundus not visualized. There is no scleral icterus. Mucous members are moist. Heart: Regular rate and rhythm, slightly tachycardic Extremities: Without edema Neurological examination Mental status: Patient is awake, alert and oriented to her name and date of . Her speech is clear. She is aware that she is in the hospital. She is very pleasant and cooperates with the exam. Cranial nerves: Pupils are equal, round and reactive to light. Visual carlson are full to confrontation. Extraocular movements are intact. There is no facial asymmetry. Facial sensation is intact. Hearing is grossly intact. Shoulder shrug is symmetric. Tongue protrudes midline. Motor: Strength is 5/5 throughout Sensation: Grossly intact to light touch throughout Coordination: Finger to nose and rapid alternating movements are intact. Results - Laboratory Findings CBC and BMP: 03/14/21 05:53 03/14/21 05:53 Abnormal Lab Findings: Abnormal Labs 03/13/21 03/13/21 03/13/21 19:12 19:12 19:12 Hgb 10.6 L Hct 33.0 L RDW 16.1 H Neutrophils # 8.1 H Lymphocytes # Sodium 133 L Carbon Dioxide 19 L BUN 40 H Creatinine 1.76 H Glucose 131 H Alkaline Phosphatase 200 H Urine Nitrite Positive H Ur Leukocyte Esterase Large H Urine WBC 20 H Urine Bacteria Few H 03/14/21 03/14/21 05:53 05:53 Hgb 10.5 L Hct 32.6 L RDW 16.1 H Neutrophils # 8.4 H Lymphocytes # 0.9 L Sodium Carbon Dioxide BUN 36 H Creatinine 1.76 H Glucose 103 H Alkaline Phosphatase 157 H Urine Nitrite Ur Leukocyte Esterase Urine WBC Urine Bacteria Assessment and Plan Assessment: 1. Breakthrough seizure in the setting of urinary tract infection 2. Cognitively challenged individual with history of seizure disorder 3. Anemia 4 Plan: 1. Your treatment of urinary tract infection 2. Would continue same dose of antiepileptic medications 3. EEG is not necessary at this time as the patient has a known seizure disorder 4. Patient is neurologically stable for discharge Time with Patient: Greater than 30 (spent 40 minutes with the patient via teleneurology.)
[2021-03-15] MEDS: DOCUSATE 100 MG CAP PO SCH (08:36)
[2021-03-15] MEDS: METOPROLOL TARTRATE 12.5 MG TAB PO SCH ×2 (08:36→21:18)
[2021-03-15] MEDS: ZIPRASIDONE 80 MG CAP PO SCH ×2 (08:36→21:18)
[2021-03-15] MEDS: lamoTRIgine 100 MG TAB PO SCH ×3 (08:36→21:18)
[2021-03-15] MEDS: ASPIRIN 325 MG TAB PO SCH (08:36)
[2021-03-15] MEDS: SERTRALINE 100 MG TAB PO SCH (08:36)
[2021-03-15] MEDS: MULTIVITAMINS, THERA 1 EACH TAB PO SCH (08:37)
[2021-03-15] MEDS: levETIRAcetam 250 MG TAB PO SCH ×2 (08:37→21:18)
[2021-03-15] MEDS: OXcarbazepine 300 MG TAB PO SCH ×2 (08:37→21:18)
[2021-03-15] MEDS: FERROUS SULFATE 325 MG TAB PO SCH ×2 (08:37→21:18)
[2021-03-15 12:27] LABS: Basophils # (A) 0.04 X 10*3/uL (0.00-0.10); Basophils % (A) 0.3 %; Eosinophils # (A) 0.04 X 10*3/uL (0.04-0.35); Eosinophils % (A) 0.3 %; HCT 30.4 % (37.2-46.3); HGB 9.4 g/dL (12.0-15.0); Lymphocytes # (A) 1.28 X 10*3/uL (0.90-5.00); Lymphocytes % (A) 10.1 %; MCH 26.9 pg (27.0-32.0); MCHC 30.9 g/dL (32.0-37.0); MCV 86.9 fL (80.0-97.0); Mean Platelet Volume 8.7 fL (9.5-12.2); Monocytes # (A) 1.25 X 10*3/uL (0.20-1.00); Monocytes % (A) 9.8 %; Neutrophils # (A) 10.05 X 10*3/uL (1.80-7.70); Neutrophils % (A) 79.2 %; Platelet Count 234 X 10*3/uL (140-440); RDW 16.2 % (11.5-14.5)
[2021-03-15 13:10] LABS: African American GFR (CKD) 36.6 (60.0-200.0); Anion Gap 7.9 mmol/L (4.00-12.00); BUN/Creat Ratio 17.65 Ratio (12.00-20.00); Calcium 9.4 mg/dL (8.7-10.3); Carbon Dioxide 23.1 mmol/L (21.6-31.8); Non-African American GFR(CKD) 31.5 (60.0-200.0); Potassium 5.1 mmol/L (3.5-5.5)
--- NOTE | 2021-03-15 14:07 | P.PN ---
Subjective Progress Note Date: 03/15/21 Hospital course: Patient is a 65-year-old female with baseline cognitive impairment. Patient currently resides at an assisted living facility. She was brought into the emergency room with episodes of seizure-like activity. Staff at assisted living facility reported 3 episodes of seizure-like activity. Patient was admitted to the hospital and diagnosed with breakthrough seizures, UTI. She was evaluated by neurology, no EEG recommended, was continued on her home medications. Subjective: 03/15/2021: Patient feels okay, appears to be more awake. Remains afebrile with no seizures. He does not appear to be in distress. Likely at baseline mental status Objective - Vital Signs Vital signs: Vital Signs Temp 98.6 F 03/15/21 07:00 Pulse 84 03/15/21 07:00 Resp 20 03/15/21 08:00 BP 123/75 03/15/21 07:00 Pulse Ox 97 03/15/21 07:00 Intake & Output 03/14/21 03/15/21 03/15/21 18:59 06:59 18:59 Intake Total 7068 014 3937 Output Total 800 400 500 Balance 400 100 775 Intake: IV 475 Piperacillin-Tazobactam 3 100 .375 gm In Sodium Chloride 0.9% 100 ml @ 25 mls/hr IVPB Q8HR SUSIE Rx# :[id number] Sodium Chloride 0.9% 1, 375 000 ml @ 75 mls/hr IV . [id number] SUSIE Rx#:[id number] Oral 1200 500 800 Output: Urine 800 400 500 Other: Voiding Method Bedside Commode Bedside Commode Bedside Commode # Voids 1 3 - Exam Constitutional: No acute distress, conversant, pleasant Eyes: Anicteric sclerae, moist conjunctiva, no lid-lag, PERRLA ENMT: NC/AT Neck:Supple, FROM Lungs: Clear to auscultation, Clear to percussion, Normal respiratory effort, no accessory muscle use Cardiovascular: Heart regular in rate and rhythm, No murmurs, gallops, or rubs no peripheral edema Abdominal: Soft Nontender, non distended, no guarding, no rebound or rigidity, Normoactive bowel sounds Skin: Normal temperature, tone, texture, turgor, No induration No subcutaneous nodules, No rash, lesions, No ulcers Extremities:No digital cyanosis No clubbing, Pedal pulses intact and symmetrical Radial pulses intact and symmetrical Normal gait and station, No calf tenderness Psychiatric: Partially oriented Neuro: Muscles Strength 5/5 in all 4 extremities, Cranial nerves II-XII grossly intact. No focal sensory deficits - Labs CBC & Chem 7: 03/15/21 07:04 03/15/21 07:04 Labs: Abnormal Lab Results - Last 24 Hours (Table) 03/15/21 03/15/21 Range/Units 07:04 07:04 WBC 12.70 H (4.50-10.00) X 10*3/uL RBC 3.50 L (4.10-5.20) X 10*6/uL Hgb 9.4 L (12.0-15.0) g/dL Hct 30.4 L (37.2-46.3) % MCH 26.9 L (27.0-32.0) pg MCHC 30.9 L (32.0-37.0) g/dL RDW 16.2 H (11.5-14.5) % MPV 8.7 L (9.5-12.2) fL Neutrophils # 10.05 H (1.80-7.70) X 10*3/uL Monocytes # 1.25 H (0.20-1.00) X 10*3/uL Chloride 110 H (96-109) mmol/L BUN 30.0 H (9.0-27.0) mg/dL Creatinine 1.7 H (0.6-1.5) mg/dL Est GFR (CKD-EPI)AfAm 36.6 L (60.0-200.0) Est GFR (CKD-EPI)NonAf 31.5 L (60.0-200.0) Microbiology - Last 24 Hours (Table) 03/13/21 19:12 Urine Culture - Preliminary Urine,Clean Catch Assessment and Plan Plan: 1. Seizures: Continue outpatient medications with Trileptal, Lamictal and Keppra. When necessary Ativan. Neurology consultation, input appreciated. Brain CT negative for acute findings. No EEG recommended. Cleared by neurology. 2. Acute UTI unspecified organism or location: Patient has history of ESBL UTI was sensitive to Zosyn in the past. Continue Zosyn. Pending cultures. 3. Depression: Continue Zoloft 4. Essential hypertension: Continue metoprolol 5. Mentally challenged: Continue supportive care 6. Leukocytoses likely associated with underlying infection: WBC was normal upon admission currently up to 12,000. 7. Hypovolemia: Improved, decrease normal saline to 50 mL per hour DVT prophylaxis: SCDs Disposition: To assisted living likely by tomorrow pending urine cultures.
[2021-03-16] MEDS: PIPERACILLIN-TAZOBACTAM 3.375 GM in SODIUM CHLORIDE 0.9% 100 ML IVPB SCH ×3 (00:38→16:52)
[2021-03-16] MEDS: FERROUS SULFATE 325 MG TAB PO SCH ×2 (07:55→22:10)
[2021-03-16] MEDS: DOCUSATE 100 MG CAP PO SCH (07:55)
[2021-03-16] MEDS: lamoTRIgine 100 MG TAB PO SCH ×3 (07:55→22:10)
[2021-03-16] MEDS: ASPIRIN 325 MG TAB PO SCH (07:55)
[2021-03-16] MEDS: MULTIVITAMINS, THERA 1 EACH TAB PO SCH (07:55)
[2021-03-16] MEDS: levETIRAcetam 250 MG TAB PO SCH ×2 (08:00→22:10)
[2021-03-16] MEDS: SERTRALINE 100 MG TAB PO SCH (08:01)
[2021-03-16] MEDS: ZIPRASIDONE 80 MG CAP PO SCH ×2 (08:01→22:10)
[2021-03-16] MEDS: METOPROLOL TARTRATE 12.5 MG TAB PO SCH ×2 (08:01→22:10)
[2021-03-16] MEDS: OXcarbazepine 300 MG TAB PO SCH ×2 (08:02→22:10)
[2021-03-16 11:27] LABS: Basophils # (A) 0.06 X 10*3/uL (0.00-0.10); Basophils % (A) 0.6 %; Eosinophils # (A) 0.17 X 10*3/uL (0.04-0.35); Eosinophils % (A) 1.7 %; HCT 29.9 % (37.2-46.3); HGB 9.1 g/dL (12.0-15.0); Lymphocytes # (A) 1.56 X 10*3/uL (0.90-5.00); Lymphocytes % (A) 15.9 %; MCH 26.8 pg (27.0-32.0); MCHC 30.4 g/dL (32.0-37.0); MCV 87.9 fL (80.0-97.0); Mean Platelet Volume 8.8 fL (9.5-12.2); Monocytes % (A) 13.3 %; Neutrophils # (A) 6.67 X 10*3/uL (1.80-7.70); Neutrophils % (A) 68.2 %; Platelet Count 215 X 10*3/uL (140-440); RDW 16.3 % (11.5-14.5); WBC 9.79 X 10*3/uL (4.50-10.00)
--- NOTE | 2021-03-16 11:36 | CDI ---
Documentation Clarification Form Date: 03/16/2021 11:27:38 AM From: Patricia Mireles CCS, CCDS Admit Date: 03/14/2021 12:54:00 PM Patient Name: Valeria Pride Visit Number: [id number] Discharge Date: ATTENTION: The Clinical Documentation Specialists (CDI) and [facility] Coding Staff appreciate your assistance in clarifying documentation. Please respond to the clarification below the line at the bottom and electronically sign. The CDI & [facility] Coding staff will review the response and follow-up if needed. Please note: Queries are made part of the Legal Health Record. If you have any questions, please contact the author of this message via ITS. Dr. Fabi Fowler: Unspecified anemia is documented in the 03/14 Neurology Consult. Additional specificity regarding the Type & Acuity of anemia is requested. History/Risk Factors: Seizure disorder, UTI: ESBL/MRSA, Hypertension, CKD Stage IV, Depression, Schizoaffective Disorder, Anxiety, Paroxysmal Atrial Fibrillation. Clinical indicators: Presented to the ED on 03/13 with Breakthrough Seizures. Hemoglobin 03/13: 10.6, 03/14: 10.5, 03/15: 9.4. 03/16: 9.1 Hematocrit 03/13: 33.0. 03/14: 32.6, 03/15: 30.4, 03/16: 29.9 Treatment 03/13: IV Keppra, IV Ativan, po Lamictal, po Geodon, IV fl rate 75 mls/hr q13H. 03/14: IV Zosyn, po Feosol 325 mg BID (home dose) Home meds: Lorazepam, Keppra, Lamictal, Geodon, Zoloft, Trileptal, Lopressor, Feosol, Colace, Aspirin Please clarify the type and acuity of anemia: [ ] Chronic blood loss anemia, please specify cause if known: [ ] Drug induced anemia [ ] Anemia of chronic kidney disease [ ] Unable to determine [ ] Other, please specify (Template Last Revised: August 2020) [ ] Anemia of chronic kidney disease MTDD
[2021-03-16 12:25] LABS: African American GFR (CKD) 36.6 (60.0-200.0); Albumin 3.5 g/dL (3.80-4.90); Albumin/Globulin Ratio 1.21 (1.60-3.17); Anion Gap 7.9 mmol/L (4.00-12.00); BUN/Creat Ratio 15.88 Ratio (12.00-20.00); Calcium 9.4 mg/dL (8.7-10.3); Carbon Dioxide 23.1 mmol/L (21.6-31.8); Globulin 2.9 g/dL (1.6-3.3); Non-African American GFR(CKD) 31.5 (60.0-200.0); Potassium 4.6 mmol/L (3.5-5.5); Total Bilirubin 0.2 mg/dL (0.2-1.2); Total Protein 6.4 g/dL (6.2-8.2)
[2021-03-16] MEDS: IOPAMIDOL CONTRAST (ORAL USE) VIAL PO PRN ×2 (14:48→16:17)
[2021-03-16] MEDS: SODIUM CHLORIDE 0.9% 1,000 ML IV SCH (15:11)
--- NOTE | 2021-03-16 17:05 | CT ---
EXAMINATION TYPE: CT abdomen pelvis wo con DATE OF EXAM: 03/16/2021 COMPARISON: 12/12/2020 HISTORY: Abdominal pain CT DLP: 486.20 mGycm Automated exposure control for dose reduction was used. Lung bases are clear of consolidation. There is a pectus excavatum chest deformity. Heart size is nor mal. There is small hiatal hernia. There is no pleural effusion. Liver and spleen are intact. There is no evidence of pancreatic mass. There are clips from cholecystectomy. The bile ducts are not dilated. There is no adrenal mass. Kidne ys have normal size. There are a few small calculi in the kidneys that measure up to 2 mm. There is s ome fullness of the right ureter. There is no evidence of ureteral calculus. Bladder distends smoothl y. There is no inguinal hernia. There is 4 cm cyst on the left ovary. Uterus is anteverted. There is no free fluid in the pelvis. There is no inguinal hernia. Appendix appears normal. There is no mesent isabel edema. There is no ascites or free air. There is no bowel obstruction. There are multiple sigmoid diverticula. There is no diverticulitis. Lumbar vertebra have normal alignment. There is degenerative disc space narrowing throughout the lumb ar spine. There is no compression fracture. There is some mild spurring of the acetabula. Proximal fe murs are intact. There is multilevel lumbar spinal stenosis and more severe at L4-5. IMPRESSION: There is clearing of the mild subsegmental atelectasis at the left lung base compared to old exam. Mu ltilevel lumbar spinal stenosis. Normal appendix. Left ovarian cyst without change. Multiple small renal calculi without definite evidence of obstruction. No change compared to old exam .
--- NOTE | 2021-03-16 21:58 | P.PN ---
Subjective Progress Note Date: 03/16/21 (delayed charting seen at 0900) Patient is a 65-year-old female with a history of seizures, cognitive delay, hypertension, and recurrent urinary tract infection who presented to the hospital secondary to breakthrough seizure. Evaluation subsequently found an acute urinary tract infection patient was started on Zosyn secondary to history of ESBL. She was seen by neurology who felt that her breakthrough seizure was in the setting of a urinary tract infection and recommended continuing her Kep pra with no medication changes, no dictation for EEG or neuro imaging at this time. Patient seen and examined at bedside. She initially denies any pain, shortness of breath, or nausea. She then does complain of pain with palpation of her upper abdomen. General: non toxic, no distress, appears at stated age Derm: warm, dry Head: atraumatic, normocephalic, symmetric Eyes: EOMI, no lid lag, anicteric sclera Mouth: no lip lesion, mucus membranes moist Cardiovascular: S1S2 reg, no murmur, positive posterior tibial pulse bilateral, Lungs: CTA bilateral, no rhonchi, no rales , no accessory muscle use Abdominal: soft, pain to palpation over left and right upper quadrant periumbilical, no pain over the suprapubic area, no guarding, no appreciable organomegaly Ext: no gross muscle atrophy, no edema, no contractures Neuro: CN II-XI grossly intact, no focal neuro deficits Psych: Alert, oriented to self and that she is in the hospital, flat affect Breakthrough seizure with history of seizure disorder -Continue with Trileptal, Lipitor, Keppra -Patient has been seizure-free -CT brain was negative for acute findings -Patient has been cleared by neurology Acute urinary tract infection with history of ESBL Multiple small renal calculi -Await final urine cultures -Continue with Zosyn Depression -Zoloft Hypertension -Metoprolol Cognitive impairment -Safe and supportive environment CKD stage III -Patient renal function at baseline -Avoid additional nephrotoxic agents Chronic anemia -Likely related to renal disease -Stable -Outpatient follow-up Likely back to assisted living once urine cultures available Objective - Vital Signs Vital signs: Vital Signs Temp 97.9 F 03/16/21 19:49 Pulse 76 03/16/21 19:49 Resp 16 03/16/21 19:49 BP 122/75 03/16/21 19:49 Pulse Ox 98 03/16/21 19:49 Intake & Output 03/16/21 03/16/21 03/17/21 06:59 18:59 06:59 Intake Total 660 Output Total 400 200 Balance -400 660 -200 Intake: Oral 660 Output: Urine 400 Urine/Stool Mix 200 Other: Voiding Method Bedside Commode Bedside Commode # Voids 1 1 1 # Bowel Movements 1 1 - Labs CBC & Chem 7: 03/16/21 05:48 03/16/21 05:48 Labs: Abnormal Lab Results - Last 24 Hours (Table) 03/16/21 03/16/21 Range/Units 05:48 05:48 RBC 3.40 L (4.10-5.20) X 10*6/uL Hgb 9.1 L (12.0-15.0) g/dL Hct 29.9 L (37.2-46.3) % MCH 26.8 L (27.0-32.0) pg MCHC 30.4 L (32.0-37.0) g/dL RDW 16.3 H (11.5-14.5) % MPV 8.8 L (9.5-12.2) fL Monocytes # 1.30 H (0.20-1.00) X 10*3/uL Chloride 111 H (96-109) mmol/L Creatinine 1.7 H (0.6-1.5) mg/dL Est GFR (CKD-EPI)AfAm 36.6 L (60.0-200.0) Est GFR (CKD-EPI)NonAf 31.5 L (60.0-200.0) Albumin 3.50 L (3.80-4.90) g/dL Albumin/Globulin Ratio 1.21 L (1.60-3.17) g/dL Microbiology - Last 24 Hours (Table) 03/13/21 19:12 Urine Culture - Final Urine,Clean Catch Escherichia coli
[2021-03-17] MEDS: PIPERACILLIN-TAZOBACTAM 3.375 GM in SODIUM CHLORIDE 0.9% 100 ML IVPB SCH ×3 (08:40)
[2021-03-17] MEDS: ASPIRIN 325 MG TAB PO SCH (08:40)
[2021-03-17] MEDS: DOCUSATE 100 MG CAP PO SCH (08:41)
[2021-03-17] MEDS: MULTIVITAMINS, THERA 1 EACH TAB PO SCH (08:41)
[2021-03-17] MEDS: SERTRALINE 100 MG TAB PO SCH (08:41)
[2021-03-17] MEDS: FERROUS SULFATE 325 MG TAB PO SCH ×2 (08:41→20:52)
[2021-03-17] MEDS: lamoTRIgine 100 MG TAB PO SCH ×3 (08:41→20:52)
[2021-03-17] MEDS: levETIRAcetam 250 MG TAB PO SCH ×2 (08:41→20:52)
[2021-03-17] MEDS: ZIPRASIDONE 80 MG CAP PO SCH ×2 (08:41→20:52)
[2021-03-17] MEDS: OXcarbazepine 300 MG TAB PO SCH ×2 (08:41→20:52)
[2021-03-17] MEDS: METOPROLOL TARTRATE 12.5 MG TAB PO SCH ×2 (08:41→20:52)
[2021-03-17] MEDS: ERTAPENEM 1 GM in SODIUM CHLORIDE 0.9% 50 ML IVPB SCH (11:34)
--- NOTE | 2021-03-17 12:54 | P.PN ---
Subjective Progress Note Date: 03/17/21 Patient is doing well today, has no complaints. She has not had any further breakthrough seizures. Denies fevers, chills, dysuria. Objective - Vital Signs Vital signs: Vital Signs Temp 98.3 F 03/17/21 07:00 Pulse 68 03/17/21 08:00 Resp 19 03/17/21 08:00 BP 109/71 03/17/21 07:00 Pulse Ox 95 03/17/21 07:00 Intake & Output 03/16/21 03/17/21 03/17/21 18:59 06:59 18:59 Intake Total 660 240 Output Total 200 Balance 660 -200 240 Intake: Oral 660 240 Output: Urine/Stool Mix 200 Other: Voiding Method Bedside Commode Bedside Commode Bedside Commode # Voids 1 3 # Bowel Movements 1 1 - Exam Gen: awake, alert HEENT: normocephalic, atraumatic, good hearing acuity, moist mucous membranes Resp: good air exchange, breathing comfortably with no accessory muscle use CVS: good distal perfusion x 4, GI: soft, NTTP, ND : no SPT, no CVAT, rogers catheter is present MSK: no pitting edema, no clubbing Neuro: non-focal, moving all extremities Psych: cooperative, euthymic mood - Labs CBC & Chem 7: 03/16/21 05:48 03/16/21 05:48 Labs: Microbiology - Last 24 Hours (Table) 03/13/21 19:12 Urine Culture - Final Urine,Clean Catch Escherichia coli Assessment and Plan Assessment: Breakthrough seizure with history of seizure disorder -Continue with Trileptal, Lipitor, Keppra -Patient has been seizure-free -CT brain was negative for acute findings -Patient has been cleared by neurology Acute urinary tract infection with history of ESBL Multiple small renal calculi -Await final urine cultures -Change Zosyn to ertapenem to cover ESBL -ID consultation -Patient will likely require PICC line with additional 4-6 day course of IV antibiotics Depression -Zoloft Hypertension -Metoprolol Cognitive impairment -Safe and supportive environment CKD stage III -Patient renal function at baseline -Avoid additional nephrotoxic agents Chronic anemia -Likely related to renal disease -Stable -Outpatient follow-up Likely back to assisted living once urine cultures available
[2021-03-17] MEDS: SODIUM CHLORIDE 0.9% 1,000 ML IV SCH (16:07)
[2021-03-17 19:17] LABS: Appearance,Urine Clear (Clear); Bacteria,Urine Rare /hpf; Bilirubin,Urine Negative (Negative); Blood,Urine Trace (Negative); Color,Urine Colorless; Glucose,Urine (UA) Negative (Negative); Ketones,Urine Negative (Negative); Leukocyte Esterase,Urine Small (Negative); Nitrite,Urine Negative (Negative); PH, Urine 6.5 (5.0-8.0); Protein,Urine Negative (Negative); RBC,Urine <1 /hpf (0-5); Specific Gravity,Urine 1.005 (1.001-1.035); Squamous Epithelial Cell,Urine <1 /hpf (0-4); Urobilinogen,Urine <2.0 mg/dL (<2.0); WBC,Urine 2 /hpf (0-5)
[2021-03-17 21:22] VITALS: RESP 18
[2021-03-18] MEDS: SODIUM CHLORIDE 0.9% 1,000 ML IV SCH (03:29)
[2021-03-18 03:43] VITALS: PULSE 62
[2021-03-18 07:52] VITALS: BP 130/81; TEMP 97.5
--- NOTE | 2021-03-18 07:56 | P.CONS ---
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 coli more than 100,000 colonies patient was started on Invanz infectious was consulted for further management most of the informati on has been obtained from review the chart patient overall is not a very good historian though when asked specifically for any urinary symptoms, she was asking for when she can go home no vomiting or diarrhea has been reported by the nursing staff Review of system: Positive point has been mentioned in HPI complete review could not be obtained because of underlying mental status Past medical history : Reviewed, documented below Past surgical history : Reviewed, documented below Social history: Reviewed, documented below Medications: Reviewed, as documented below EXAMINATION: Vital sigans= Reviewed and documented below GENERAL DESCRIPTION: Middle-aged female lying in bed, no distress. No tachypnea or accessory muscle of respiration use. HEENT: Shows Pallor , no scleral icterus. Oral mucous membrane is dry. NECK: Trachea central, no thyromegaly. LUNGS: Unlabored breathing. Clear to auscultation anteriorly. No wheeze or crackle. HEART: S1, S2, regular rate and rhythm. ABDOMEN: Soft, no tenderness , guarding or rigidity EXTREMITIES: No edema of feet. SKIN: No rash, no masses palpable. NEUROLOGICAL: The patient is awake, alert, orientation could not determine LABS AND RADIOLOGY: Mildly positive UA, urine culture with ESBL E. coli white count is normal rest of the labs reviewed Assessment : 1-patient with a positive urine culture with ESBL E. coli and this patient has been admitted to the hospital with breakthrough seizures patient did have mild cognitive delay evaluated good historian however not specifically for any urinary symptoms she denies patient did not have any fever or elevated white count with a question of possible contamination versus asymptomatic bacteriuria Plan: 1-we will obtain repeat UA and culture straight cath for clean-catch sample if the repeat urine is negative we will proceed with initial cultures and recommend no antibiotics on discharge 2-May continue Invanz for now till the repeat urine is obtained We will follow on clinical condition and cultures to further adjust medication if needed Thank you for this consultation we will follow the patient along with you Past Medical History Past Medical History: Atrial Fibrillation, Hypertension, Pneumonia, Seizure Disorder Additional Past Medical History / Comment(s): Vertigo, paroxysmal atrial fibrillation, moderate intellectual disability, SEPTEMBER 2016 UTI AND BACTEREMIA. Shingles, anemia History of Any Multi-Drug Resistant Organisms: ESBL, MRSA Year Discovered:: 12/12/20 E.coli ESBL; 06/21/18 MRSA MDRO Source:: Urine-ESBL; Groin-MRSA Past Surgical History: Cholecystectomy Additional Past Surgical History / Comment(s): hx picc line-since removed Past Anesthesia/Blood Transfusion Reactions: No Reported Reaction Additional Past Anesthesia/Blood Transfusion Reaction / Comm: child care attendant school says not that she knows of Past Psychological History: Anxiety, Schizoaffective Disorder Additional Psychological History / Comment(s): OCD, auditory hallucinations, needs reassurance that she is ok. depressive type schizoaffective. Single. Has a sister as her guardian. Does have 24-hour care in her apartment. No animals in the apartment. No travel history Smoking Status: Never smoker Past Alcohol Use History: None Reported Additional Past Alcohol Use History / Comment(s): Patient is a lifelong nonsmoker, no illicit drug use, alcohol use. Patient lives in her own apartment at [facility] has a room mate and 24-hour care. There are no pets in the home. No recent travel.has walker, rollator, cane showr chair if needed Past Drug Use History: None Reported - Past Family History Father Family Medical History: Cancer Additional Family Medical History / Comment(s): lymphoma Mother Family Medical History: AFIB, Congestive Heart Failure (CHF) Medications and Allergies Home Medications Medication Instructions Recorded Confirmed Type Aspirin 325 mg PO DAILY 02/13/14 03/13/21 History OXcarbazepine [Trileptal] 300 mg PO BID 02/13/14 03/13/21 History Sertraline [Zoloft] 150 mg PO DAILY 02/13/14 03/13/21 History Ziprasidone [Geodon] 80 mg PO BID 02/13/14 03/13/21 History lamoTRIgine [LaMICtal] 200 mg PO TID 02/13/14 03/13/21 History Cranberry Fruit Extract [Cranberry] 1,000 mg PO DAILY 01/19/18 03/13/21 History Docusate [Colace] 100 mg PO DAILY 11/26/18 03/13/21 History Metoprolol Tartrate [Lopressor] 12.5 mg PO BID 12/12/20 03/13/21 History levETIRAcetam [Keppra] 250 mg PO BID 12/12/20 03/13/21 History Ferrous Sulfate [Feosol] 325 mg PO BID 03/13/21 03/13/21 History LORazepam 1 mg SL DAILY PRN 03/13/21 03/13/21 History Multivitamins, Thera [Multivitamin 1 tab PO DAILY 03/13/21 03/13/21 History (formulary)] Allergies Allergy/AdvReac Type Severity Reaction Status Date / Time No Known Allergies Allergy Verified 03/13/21 19:44 Physical Exam Vitals: Vital Signs Temp Pulse Resp BP Pulse Ox 03/17/21 08:00 68 19 03/17/21 07:00 98.3 F 68 19 109/71 95 03/17/21 01:31 98.3 F 77 16 102/61 96 03/16/21 20:00 76 16 03/16/21 19:49 97.9 F 76 16 122/75 98 03/16/21 14:41 97.6 F 68 18 109/70 99 03/16/21 14:00 68 18 Intake and Output 03/16/21 03/17/21 03/17/21 22:59 06:59 14:59 Intake Total 240 Output Total 200 Balance -200 240 Intake: Oral 240 Output: Urine/Stool Mix 200 Other: Voiding Method Bedside Commode Bedside Commode # Voids 2 3 # Bowel Movements 1 Results CBC & Chem 7: 03/16/21 05:48 03/16/21 05:48 Labs: Abnormal Lab Results - Last 24 Hours (Table) 03/16/21 03/16/21 Range/Units 05:48 05:48 RBC 3.40 L (4.10-5.20) X 10*6/uL Hgb 9.1 L (12.0-15.0) g/dL Hct 29.9 L (37.2-46.3) % MCH 26.8 L (27.0-32.0) pg MCHC 30.4 L (32.0-37.0) g/dL RDW 16.3 H (11.5-14.5) % MPV 8.8 L (9.5-12.2) fL Monocytes # 1.30 H (0.20-1.00) X 10*3/uL Chloride 111 H (96-109) mmol/L Creatinine 1.7 H (0.6-1.5) mg/dL Est GFR (CKD-EPI)AfAm 36.6 L (60.0-200.0) Est GFR (CKD-EPI)NonAf 31.5 L (60.0-200.0) Albumin 3.50 L (3.80-4.90) g/dL Albumin/Globulin Ratio 1.21 L (1.60-3.17) g/dL Microbiology - Last 24 Hours (Table) 03/13/21 19:12 Urine Culture - Final Urine,Clean Catch Escherichia coli
[2021-03-18] MEDS: DOCUSATE 100 MG CAP PO SCH (08:19)
[2021-03-18] MEDS: ZIPRASIDONE 80 MG CAP PO SCH (08:19)
[2021-03-18] MEDS: OXcarbazepine 300 MG TAB PO SCH (08:19)
[2021-03-18] MEDS: lamoTRIgine 100 MG TAB PO SCH (08:19)
[2021-03-18] MEDS: ERTAPENEM 1 GM in SODIUM CHLORIDE 0.9% 50 ML IVPB SCH (08:20)
[2021-03-18] MEDS: levETIRAcetam 250 MG TAB PO SCH (08:20)
[2021-03-18] MEDS: MULTIVITAMINS, THERA 1 EACH TAB PO SCH (08:20)
[2021-03-18] MEDS: SERTRALINE 100 MG TAB PO SCH (08:20)
[2021-03-18] MEDS: METOPROLOL TARTRATE 12.5 MG TAB PO SCH (08:20)
[2021-03-18] MEDS: FERROUS SULFATE 325 MG TAB PO SCH (08:20)
[2021-03-18] MEDS: ASPIRIN 325 MG TAB PO SCH (08:21)
--- NOTE | 2021-03-18 09:29 | P.DS ---
Providers Date of admission: 03/14/21 12:54 Expected date of discharge: 03/18/21 Attending physician: Fabi Fowler MD Consults: 03/13/21 22:00 Consult Physician Urgent Consulting Provider: Sandy Valdez Consult Reason/Comments: acute breakthrough seizures Do you want consulting provider notified?: Yes 03/17/21 10:01 Consult Physician Routine Consulting Provider: Sidney Goodrich Consult Reason/Comments: ESBL UTI Do you want consulting provider notified?: Yes Primary care physician: Payal Montejo MD Hospital Course: Discharge Diagnosis: Breakthrough seizure with history of seizure disorder Acute urinary tract infection, ESBL, cleared on repeat UA Depression Hypertension Cognitive impairment Chronic kidney disease stage III Anemia Hospital Course: Patient is a 65-year-old female with a history of seizures, cognitive delay, hypertension, and recurrent urinary tract infection who presented [facility] the hosp [facility] secondary to breakthrough seizure. Evaluation subsequently found an acute urinary tract infection patient was started on Zosyn secondary to history of ESBL. She was seen by neurology who felt that her breakthrough seizure was in the setting of a urinary tract infection and recommended continuing her Keppra with no medication changes, no dictation for EEG or neuro imaging at this time. Seen by ID and reapeat UA negative, no need for further antibiotics. Patient stable for discharge. Follow-up with Dr. Montejo Patient seen and examined at bedside. Feeling well no pain, no nausea, no vomi ting.Feeling good and wants to go home. Vital signs reviewed and stable. General: non toxic, no distress, appears at stated age Derm: warm, dry Head: atraumatic, normocephalic, symmetric Eyes: EOMI, no lid lag, anicteric sclera Mouth: no lip lesion, mucus membranes moist, poor dentition Cardiovascular: S1S2 reg, no murmur, positive posterior tibial pulse bilateral, Lungs: Decreased bs bilateral, no rhonchi, no rales , no accessory muscle use Abdominal: soft, nontender to palpation, no guarding, no appreciable organomegaly Ext: no gross muscle atrophy, no edema, no contractures Neuro: CN II-XI grossly intact, no focal neuro deficits Psych: Alert, oriented to self and situation, appropriate affect A total of 32 minutes of time were spent preparing this complex discharge summary . Patient Condition at Discharge: Stable Plan - Discharge Summary Discharge Rx Participant: No New Discharge Prescriptions: Continue Aspirin 325 mg PO DAILY Ziprasidone [Geodon] 80 mg PO BID Sertraline [Zoloft] 150 mg PO DAILY lamoTRIgine [LaMICtal] 200 mg PO TID OXcarbazepine [Trileptal] 300 mg PO BID Cranberry Fruit Extract [Cranberry] 1,000 mg PO DAILY Docusate [Colace] 100 mg PO DAILY levETIRAcetam [Keppra] 250 mg PO BID Ferrous Sulfate [Iron (65 MG Elemental)] 325 mg PO BID Multivitamins, Thera [Multivitamin (formulary)] 1 tab PO DAILY LORazepam 1 mg SL DAILY PRN PRN Reason: Seizures Metoprolol Tartrate [Lopressor] 12.5 mg PO BID Discharge Medication List Aspirin 325 mg PO DAILY 02/13/14 [History] OXcarbazepine [Trileptal] 300 mg PO BID 02/13/14 [History] Sertraline [Zoloft] 150 mg PO DAILY 02/13/14 [History] Ziprasidone [Geodon] 80 mg PO BID 02/13/14 [History] lamoTRIgine [LaMICtal] 200 mg PO TID 02/13/14 [History] Cranberry Fruit Extract [Cranberry] 1,000 mg PO DAILY 01/19/18 [History] Docusate [Colace] 100 mg PO DAILY 11/26/18 [History] Metoprolol Tartrate [Lopressor] 12.5 mg PO BID 12/12/20 [History] levETIRAcetam [Keppra] 250 mg PO BID 12/12/20 [History] Ferrous Sulfate [Iron (65 MG Elemental)] 325 mg PO BID 03/13/21 [History] LORazepam 1 mg SL DAILY PRN 03/13/21 [History] Multivitamins, Thera [Multivitamin (formulary)] 1 tab PO DAILY 03/13/21 [History] Follow up Appointment(s)/Referral(s): Payal Montejo MD [Primary Care Provider] - 1-2 days Patient Instructions/Handouts: Seizure/Epilepsy Discharge Instructions & Follow-Up Activity/Diet/Wound Care/Special Instructions: Activity: as tolerated Diet: regular Discharge Disposition: HOME SELF-CARE
== END 2021-03-18 10:53 | disposition home or self-care (01) | DRG 101 ==
LOC: EC 18:47 → 6NMEDSUR 21:59 → OBSVTOIN 03-14 12:54
PROVIDERS: ADMIT Internal Medicine; ATTEND Internal Medicine
DX: G40.909 Epilepsy, unspecified, not intractable, without status epilepticus (principal); N18.4 Chronic kidney disease, stage 4 (severe); N39.0 Urinary tract infection, site not specified; Z16.12 Extended spectrum beta lactamase (ESBL) resistance; B96.20 Unspecified Escherichia coli [E. coli] as the cause of diseases classified elsewhere; D64.9 Anemia, unspecified; F25.9 Schizoaffective disorder, unspecified; F32.9 Major depressive disorder, single episode, unspecified; F42.9 Obsessive-compulsive disorder, unspecified; F71 Moderate intellectual disabilities; I12.9 Hypertensive chronic kidney disease with stage 1 through stage 4 chronic kidney disease, or unspecified chronic kidney disease; F41.9 Anxiety disorder, unspecified; I48.0 Paroxysmal atrial fibrillation; N20.0 Calculus of kidney; Z79.82 Long term (current) use of aspirin; Z79.899 Other long term (current) drug therapy; Z80.7 Family history of other malignant neoplasms of lymphoid, hematopoietic and related tissues; Z82.49 Family history of ischemic heart disease and other diseases of the circulatory system; Z86.19 Personal history of other infectious and parasitic diseases; Z87.440 Personal history of urinary (tract) infections
CPT/HCPCS: 36415; 70450; 74176; 80048; 80053; 80175; 80183; 81001; 83735; 85025; 87077; 87086; 87186; 87635; 93005; 96365; 96366; 96375; 99285

== ENCOUNTER 2021-08-13 12:09 | Inpatient (IN) | payer MEDICARE, OTHER ==
--- NOTE | 2021-08-13 12:49 | ED ---
General Adult HPI - General Chief complaint: Seizure Stated complaint: seizures Time Seen by Provider: 08/13/21 12:11 Source: EMS Mode of arrival: EMS - History of Present Illness Initial comments: Dictation was produced using [employer] dictation software. please excuse any gra mmatical, word or spelling errors. Chief Complaint: 66-year-old female past medical history seizure, A. fib and mental debility presents emergency department for multiple seizures History of Present Illness: 66-year-old female she is brought in by EMS. Patient currently resides in a senior living. Patient has history of mental debility and seizure disorder since a young age. She is accompanied by sister who is also her guardian. Patient lives in a senior living where she allegedly had a witnessed seizure yesterday. Patient's last seizure was in May. Is uncommon for patient to have some seizures sporadically however today she had 3 other seizures on separate occasions. Sister reports that patient has increased seizure whenever there is some sort of issue going on with her medically for example urinary tract infection. Patient has history of multidrug resistant urinary tract infections. Patient takes multiple antiseizure medications for her seizures. She also has history of A. fib takes anticoagulation medications. Patient denies any complaints at the bedside however since reports that she has had been having symptoms of insomnia last night. Patient does have a neurologist. Patient has not had any dose medications of her seizure medications recently. The ROS documented in this emergency department record has been reviewed and confirmed by me. Those systems with pertinent positive or negative responses have been documented in the HPI. All other systems are other negative and/or noncontributory. PHYSICAL EXAM: General Impression: Alert and oriented x3, not in acute distress HEENT: Normocephalic atraumatic, extra-ocular movements intact, pupils equal and reactive to light bilaterally, mucous membranes moist. Cardiovascular: Heart regular rate and rhythm Chest: Able to complete full sentences, no retractions, no tachypnea Abdomen: abdomen soft, non-tender, non-distended, no organomegaly Musculoskeletal: Pulses present and equal in all extremities, no peripheral edema Motor: no focal deficits noted Neurological: CN II-XII grossly intact, no focal motor or sensory deficits noted Skin: Intact with no visualized rashes Psych: Normal affect and mood ED course: 66-year-old female presents to the emergency Department for seizures. Vital signs upon arrival are within acceptable limits. Laboratory evaluation obtained. CBC remarkable. Metabolic panel shows findings within acceptable limits. Creatinine is 1.55 but around her baseline. Urinalysis shows 15 white blood cells. Patient observed in emergency department for approximately 2 hours with no recurrent episode of seizure. Patient's urinary microbiology was reviewed from electronic medical record. She does have a history of ESBL. Patient does have resistance to several medications this. She has had E. coli that's sensitive to Zosyn. At this point patient would benefit from inpatient admission. She does not have any good oral antibiotics to be discharged with. According to sister and guardian patient has been well controlled on her current antiseizure medication s. Patient also has history of severe sepsis from urinary tract infection in the past. Patient will be admitted to [facility]. Infectious disease will be consulted. Patient placed on seizure Precautions. She is started on her home meds. EKG interpretation: Ventricular rate 85, sinus rhythm,. Interval tonight, care/6, QTC 410. No KS prolongation, no QTC prolongation, no ST or T-wave changes noted. EKG compared to 03/13/2021 showing no changes. Overall, this EKG is unremarkable - Related Data Home Medications Medication Instructions Recorded Confirmed Aspirin 325 mg PO DAILY@0700 02/13/14 08/13/21 OXcarbazepine [Trileptal] 300 mg PO BID@0700,199902/13/14 08/13/21 Sertraline [Zoloft] 150 mg PO DAILY@0700 02/13/14 08/13/21 Ziprasidone [Geodon] 80 mg PO BID@0700,199902/13/14 08/13/21 lamoTRIgine [LaMICtal] 200 mg PO TID@0700,1400,199902/13/14 08/13/21 Cranberry Fruit Extract [Cranberry] 500 mg PO BID@0700,199901/19/18 08/13/21 Docusate [Colace] 100 mg PO DAILY@0700 11/26/18 08/13/21 Metoprolol Tartrate [Lopressor] 12.5 mg PO BID@0700,199912/12/20 08/13/21 levETIRAcetam [Keppra] 250 mg PO BID@0700,199912/12/20 08/13/21 Ferrous Sulfate [Iron (65 MG 325 mg PO BID@0700,199903/13/21 08/13/21 Elemental)] LORazepam 0.5 mg PO DAILY PRN 03/13/21 08/13/21 Clotrimazole Cream [Lotrimin Cream] 1 applic TOPICAL HS@199908/13/21 08/13/21 Allergies Allergy/AdvReac Type Severity Reaction Status Date / Time No Known Allergies Allergy Verified 08/13/21 13:35 Review of Systems ROS Statement: Those systems with pertinent positive or pertinent negative responses have been documented in the HPI. ROS Other: All systems not noted in ROS Statement are negative. Past Medical History Past Medical History: Atrial Fibrillation, Hypertension, Pneumonia, Seizure Disorder Additional Past Medical History / Comment(s): Vertigo, paroxysmal atrial fibrillation, moderate intellectual disability, SEPTEMBER 2016 UTI AND BACTEREMIA History of Any Multi-Drug Resistant Organisms: ESBL, MRSA Date of last positivie culture/infection: 12/12/20 E.coli ESBL; 06/21/18 MRSA MDRO Source:: Urine-ESBL; Groin-MRSA Past Surgical History: No Surgical Hx Reported Additional Past Surgical History / Comment(s): hx picc line-since removed Past Anesthesia/Blood Transfusion Reactions: No Reported Reaction Additional Past Anesthesia/Blood Transfusion Reaction / Comment(s): direct care professional says not that she knows of Past Psychological History: Anxiety, Schizoaffective Disorder Smoking Status: Never smoker Past Alcohol Use History: None Reported Past Drug Use History: None Reported - Past Family History Father Family Medical History: Cancer Additional Family Medical History / Comment(s): lymphoma Mother Family Medical History: AFIB, Congestive Heart Failure (CHF) Course Vital Signs 08/13/21 08/13/21 12:11 13:49 Temperature 97.9 F Pulse Rate 86 78 Respiratory 18 18 Rate Blood Pressure 148/84 120/78 O2 Sat by Pulse 96 95 Oximetry Medical Decision Making - Lab Data Result diagrams: 08/13/21 12:25 08/13/21 12:25 Lab Results 08/13/21 08/13/21 08/13/21 Range/Units 12:25 12:25 13:49 WBC 9.1 (3.8-10.6) k/uL RBC 3.73 L (3.80-5.40) m/uL Hgb 10.7 L (11.4-16.0) gm/dL Hct 32.9 L (34.0-46.0) % MCV 88.4 (80.0-100.0) fL MCH 28.8 (25.0-35.0) pg MCHC 32.5 (31.0-37.0) g/dL RDW 14.1 (11.5-15.5) % Plt Count 244 (150-450) k/uL MPV 7.1 Neutrophils % 85 % Lymphocytes % 6 % Monocytes % 6 % Eosinophils % 0 % Basophils % 1 % Neutrophils # 7.7 (1.3-7.7) k/uL Lymphocytes # 0.6 L (1.0-4.8) k/uL Monocytes # 0.5 (0-1.0) k/uL Eosinophils # 0.0 (0-0.7) k/uL Basophils # 0.1 (0-0.2) k/uL Sodium 134 L (137-145) mmol/L Potassium 4.8 (3.5-5.1) mmol/L Chloride 103 (98-107) mmol/L Carbon Dioxide 20 L (22-30) mmol/L Anion Gap 11 mmol/L BUN 33 H (7-17) mg/dL Creatinine 1.55 H (0.52-1.04) mg/dL Est GFR (CKD-EPI)AfAm 41 (>60 ml/min/1.73 sqM) Est GFR (CKD-EPI)NonAf 35 (>60 ml/min/1.73 sqM) Glucose 131 H (74-99) mg/dL Calcium 9.6 (8.4-10.2) mg/dL Magnesium 2.0 (1.6-2.3) mg/dL Total Bilirubin 0.4 (0.2-1.3) mg/dL AST 20 (14-36) U/L ALT 12 (4-34) U/L Alkaline Phosphatase 136 H (38-126) U/L Total Protein 7.3 (6.3-8.2) g/dL Albumin 3.6 (3.5-5.0) g/dL Urine Color Light Yellow Urine Appearance Clear (Clear) Urine pH 6.0 (5.0-8.0) Ur Specific [place]ress 1.006 (1.001-1.035) Urine Protein Negative (Negative) Urine Glucose (UA) Negative (Negative) Urine Ketones Negative (Negative) Urine Blood Negative (Negative) Urine Nitrite Positive H (Negative) Urine Bilirubin Negative (Negative) Urine Urobilinogen <2.0 (<2.0) mg/dL Ur Leukocyte Esterase Large H (Negative) Urine RBC 1 (0-5) /hpf Urine WBC 15 H (0-5) /hpf Ur Squamous Epith Cells <1 (0-4) /hpf Urine Bacteria Many H (None) /hpf Urine Mucus Rare H (None) /hpf Disposition Clinical Impression: Seizure, UTI (urinary tract infection) Disposition: ADMITTED IP TO THIS HOSP Condition: Fair Referrals: Payal Montejo MD [Primary Care Provider] - 1-2 days
[2021-08-13 13:04] LABS: Basophils # (A) 0.1 k/uL (0-0.2); Basophils % (A) 1 %; Eosinophils % (A) 0 %; HCT 32.9 % (34.0-46.0); HGB 10.7 gm/dL (11.4-16.0); Lymphocytes # (A) 0.6 k/uL (1.0-4.8); Lymphocytes % (A) 6 %; MCH 28.8 pg (25.0-35.0); MCHC 32.5 g/dL (31.0-37.0); MCV 88.4 fL (80.0-100.0); Mean Platelet Volume 7.1; Monocytes # (A) 0.5 k/uL (0-1.0); Monocytes % (A) 6 %; Neutrophils # (A) 7.7 k/uL (1.3-7.7); Neutrophils % (A) 85 %; Platelet Count 244 k/uL (150-450); RBC 3.73 m/uL (3.80-5.40); RDW 14.1 % (11.5-15.5); WBC 9.1 k/uL (3.8-10.6)
--- NOTE | 2021-08-13 13:18 | XR ---
EXAMINATION TYPE: XR chest 1V portable DATE OF EXAM: 08/13/2021 COMPARISON: Chest x-ray 01/23/2020 HISTORY: malaise, seizure TECHNIQUE: Single frontal view of the chest is obtained. FINDINGS: There are overlying leads. Cardiac mediastinal silhouette is stable, patient with a pectus deformity. Right hemidiaphragm remains elevated. No evident airspace disease, pneumothorax, or pleur al effusion. IMPRESSION: No acute process.
[2021-08-13 13:21] LABS: Albumin 3.6 g/dL (3.5-5.0); Calcium 9.6 mg/dL (8.4-10.2); Potassium 4.8 mmol/L (3.5-5.1); Total Bilirubin 0.4 mg/dL (0.2-1.3); Total Protein 7.3 g/dL (6.3-8.2)
[2021-08-13 14:05] LABS: Appearance,Urine Clear (Clear); Bacteria,Urine Many /hpf; Bilirubin,Urine Negative (Negative); Blood,Urine Negative (Negative); Color,Urine Light Yellow; Glucose,Urine (UA) Negative (Negative); Ketones,Urine Negative (Negative); Leukocyte Esterase,Urine Large (Negative); Mucus,Urine Rare /hpf; Nitrite,Urine Positive (Negative); Protein,Urine Negative (Negative); RBC,Urine 1 /hpf (0-5); Specific Gravity,Urine 1.006 (1.001-1.035); Squamous Epithelial Cell,Urine <1 /hpf (0-4); Urobilinogen,Urine <2.0 mg/dL (<2.0); WBC,Urine 15 /hpf (0-5)
[2021-08-13] MEDS ORDERED: PIPERACILLIN-TAZOBACTAM 3.375 GM in SODIUM CHLORIDE 0.9% 100 ML IVPB STA (14:27)
[2021-08-13] MEDS ORDERED: LORazepam 0.5 MG TAB PO PRN (14:28)
[2021-08-13] MEDS ORDERED: NALOXONE 0.4 MG/ML 1 ML VIAL IV PRN ×2 (14:38→15:51)
[2021-08-13] MEDS ORDERED: LORazepam 2 MG/ML INJ IV PRN (14:43)
--- NOTE | 2021-08-13 16:16 | P.HPIM ---
History of Present Illness H&P Date: 08/13/21 Chief Complaint: Breakthrough seizure 66-year-old female with past medical history significant for developmental delay and seizure disorder presented to the emergency room with a chief complaint of breakthrough seizures 4 the patient had one episode last night and 3 episodes today by her caregiver. Patient is very poor history and most of the history obtained from records and sister at the bedside. Sister stated that most of her seizures were induced by recurrent urinary tract infection patient was noted to have history of recurrent ESBL UTIs. Urinalysis on emergency room came back abnormal. Patient currently awake oriented to herself a baseline as mentioned earlier she is very poor historian. No reported fever or dysuria or frequency.. No nausea vomiting or abdominal pain. Patient denies any shortness of breath or chest pain. Review of Systems All 14 review of systems evaluated and all negative except for above. Past Medical History Past Medical History: Atrial Fibrillation, Hypertension, Pneumonia, Seizure Disorder Additional Past Medical History / Comment(s): Vertigo, paroxysmal atrial fibrillation, moderate intellectual disability, SEPTEMBER 2016 UTI AND BACTEREMIA History of Any Multi-Drug Resistant Organisms: ESBL, MRSA Date of last positivie culture/infection: 12/12/20 E.coli ESBL; 06/21/18 MRSA MDRO Source:: Urine-ESBL; Groin-MRSA Past Surgical History: No Surgical Hx Reported Additional Past Surgical History / Comment(s): hx picc line-since removed Past Anesthesia/Blood Transfusion Reactions: No Reported Reaction Additional Past Anesthesia/Blood Transfusion Reaction / Comment(s): director of career services says not that she knows of Past Psychological History: Anxiety, Schizoaffective Disorder Smoking Status: Never smoker Past Alcohol Use History: None Reported Past Drug Use History: None Reported - Past Family History Father Family Medical History: Cancer Additional Family Medical History / Comment(s): lymphoma Mother Family Medical History: AFIB, Congestive Heart Failure (CHF) Medications and Allergies Home Medications Medication Instructions Recorded Confirmed Type Aspirin 325 mg PO DAILY@69902/13/14 08/13/21 History OXcarbazepine [Trileptal] 300 mg PO BID@699,199902/13/14 08/13/21 History Sertraline [Zoloft] 150 mg PO DAILY@00 02/13/14 08/13/21 History Ziprasidone [Geodon] 80 mg PO BID@699,199902/13/14 08/13/21 History lamoTRIgine [LaMICtal] 200 mg PO TID@699,1399,199902/13/14 08/13/21 History Cranberry Fruit Extract [Cranberry] 500 mg PO BID@0700,199901/19/18 08/13/21 History Docusate [Colace] 100 mg PO DAILY@0700 11/26/18 08/13/21 History Metoprolol Tartrate [Lopressor] 12.5 mg PO BID@0700,199912/12/20 08/13/21 History levETIRAcetam [Keppra] 250 mg PO BID@0700,199912/12/20 08/13/21 History Ferrous Sulfate [Iron (65 MG 325 mg PO BID@0700,199903/13/21 08/13/21 History Elemental)] LORazepam 0.5 mg PO DAILY PRN 03/13/21 08/13/21 History Clotrimazole Cream [Lotrimin Cream] 1 applic TOPICAL HS@199908/13/21 08/13/21 History Allergies Allergy/AdvReac Type Severity Reaction Status Date / Time No Known Allergies Allergy Verified 08/13/21 13:35 Physical Exam Vitals: Vital Signs Temp Pulse Resp BP Pulse Ox 08/13/21 13:49 78 18 120/78 95 08/13/21 12:11 97.9 F 86 18 148/84 96 Intake and Output 08/13/21 08/13/21 08/13/21 06:59 14:59 22:59 Other: Weight 68.039 kg General: non toxic, no distress, appears at stated age Derm: warm, dry Head: atraumatic, normocephalic, symmetric Eyes: EOMI, no lid lag, anicteric sclera Mouth: no lip lesion, mucus membranes moist Cardiovascular: S1S2 reg, no murmur, positive posterior tibial pulse bilateral, Lungs: CTA bilateral, no rhonchi, no rales , no accessory muscle use Abdominal: soft, nontender to palpation, no guarding, no appreciable organomegaly Ext: no gross muscle atrophy, no edema, no contractures Neuro: CN II-XI grossly intact, no focal neuro deficits Psych: Alert, oriented, appropriate affect Results CBC & Chem 7: 08/13/21 12:25 08/13/21 12:25 Labs: Abnormal Lab Results - Last 24 Hours (Table) 08/13/21 08/13/21 08/13/21 Range/Units 12:25 12:25 13:49 RBC 3.73 L (3.80-5.40) m/uL Hgb 10.7 L (11.4-16.0) gm/dL Hct 32.9 L (34.0-46.0) % Lymphocytes # 0.6 L (1.0-4.8) k/uL Sodium 134 L (137-145) mmol/L Carbon Dioxide 20 L (22-30) mmol/L BUN 33 H (7-17) mg/dL Creatinine 1.55 H (0.52-1.04) mg/dL Glucose 131 H (74-99) mg/dL Alkaline Phosphatase 136 H (38-126) U/L Urine Nitrite Positive H (Negative) Ur Leukocyte Esterase Large H (Negative) Urine WBC 15 H (0-5) /hpf Urine Bacteria Many H (None) /hpf Urine Mucus Rare H (None) /hpf Assessment and Plan Assessment: #Breakthrough seizures -Patient had total of 3 episodes in the past 18 hours -Per records and family seems to be provoked by recurrent UTIs -Patient will be admitted for antibiotic treatments and evaluation by neurology. #Recurrent ESBL urinary tract infection -Check urine and blood culture -Consult infectious disease -Start meropenem 1 g every 12 hours -IV fluids -Await for final urine culture -Blood culture ordered #Chronic kidney disease disease III -Creatinine at baseline -Avoid Nephrotoxic agents #History of paroxysmal A. fib -Normal sinus rhythm -Patient not on oral anticoagulants -Resume aspirin and metoprolol #Developmental delay #Depression -Resume medications #DVT prophylaxis subcutaneous heparin
[2021-08-13] MEDS: SODIUM CHLORIDE 0.9% 1,000 ML IV SCH ×2 (16:23→16:25)
[2021-08-13] MEDS: HEPARIN SODIUM,PORCINE/PF 5,000 UNIT/0.5 ML SYRINGE SQ SCH (16:25)
[2021-08-13] MEDS ORDERED: NON FORMULARY DRUG (Cranberry Fruit Extract [Cranberry] 500 MG Tablet) PO SCH (20:00)
[2021-08-13] MEDS: lamoTRIgine 100 MG TAB PO SCH (20:37)
[2021-08-13] MEDS: FERROUS SULFATE 325 MG TAB PO SCH (20:37)
[2021-08-13] MEDS: METOPROLOL TARTRATE 12.5 MG TAB PO SCH (20:37)
[2021-08-13] MEDS: OXcarbazepine 300 MG TAB PO SCH (20:37)
[2021-08-13] MEDS: MEROPENEM 1 GM in SODIUM CHLORIDE 0.9% 100 ML IVPB SCH (20:38)
[2021-08-13] MEDS: ZIPRASIDONE 80 MG CAP PO SCH (20:46)
[2021-08-13] MEDS: levETIRAcetam 250 MG TAB PO SCH (20:46)
[2021-08-13] MEDS: CLOTRIMAZOLE 1% CREAM 30 GM TUBE TOPICAL SCH (21:03)
--- NOTE | 2021-08-13 23:17 | P.CONS ---
History of Present Illness - Reason for Consult Consult date: 08/13/21 UTI/ESBL history Requesting physician: Sunil Pérez - Chief Complaint seizure x 1 day - History of Present Illness History of Present Illness : Patient is a 66-year-old female with a past medical history significant for seizure disorder atrial fibrillation and mental debility history of for urinary tract infection a senior living resident, patient was brought into the ER for evaluation of weakness seizure that happened the day before presentation to the hospital, sister provided history to the ER physician and concern that usually the seizures are precipitated by underlying urinary tract infection and did have a history of recurrent UTI with the previous history of ESBL E. coli pathogen with the symptom the patient was evaluated by ER physician on arrival to the ER the patient was afebrile patient did have a normal white count BUN and creatinine has been mild elevated rocío positive UA with large leukocyte esterase 15 WBC cultures are currently pending arenas PCR was negative patient did have a chest x-ray that was negative for acute pulmonary process patient was started on meropenem while waiting for the culture finalized she did receive a dose of Zosyn in the ER as well infectious disease was consulted for further management of antibiotic therapy most of the information has been obtained from review the chart as the patient herself is not good historian Review of system: Positive points mentioned in history of present illness complete review could not be obtained because of his underlying medical condition. Past medical history : Reviewed, documented below Past surgical history : Reviewed, documented below Social history: Reviewed, documented below Medications: Reviewed, as documented below EXAMINATION: Vital sigans= Reviewed and documented below GENERAL DESCRIPTION: Middle-aged female lying in bed, no distress. No tachypnea or accessory muscle of respiration use. HEENT: Shows Pallor , no scleral icterus. Oral mucous membrane is dry. NECK: Trachea central, no thyromegaly. LUNGS: Unlabored breathing. Clear to auscultation anteriorly. No wheeze or crackle. HEART: S1, S2, regular rate and rhythm. ABDOMEN: Soft, no tenderness , guarding or rigidity EXTREMITIES: No edema feet SKIN: No rash, no masses palpable. NEUROLOGICAL: The patient is awake, alert, oriented x1, mood and affect normal. LABS AND RADIOLOGY: Reviewed results see below Assessment : 1-Patient presented to hospital for evaluation of a seizure activ ity in this patient who do have a history of recurrent UTI did have a positive UA with a previous culture positive for ESBL with a question of same or different pathogen. 2patient with elevated BUN and creatinine need to rule out obstructive uropathy or structure abnormality that may be responsible for these recurrent UTIs Plan: 1-we will obtain ultrasound of the kidney and bladder area 2-continue the meropenem 1 g every 12 hours dose adjusted to the kidney function 3-gentle IV fluid We will follow on clinical condition and cultures to further adjust medication if needed Thank you for this consultation we will follow the patient along with you Past Medical History Past Medical History: Atrial Fibrillation, Hypertension, Pneumonia, Seizure Diso rder Additional Past Medical History / Comment(s): Vertigo, paroxysmal atrial fibrillation, moderate intellectual disability, SEPTEMBER 2016 UTI AND BACTEREMIA History of Any Multi-Drug Resistant Organisms: ESBL, MRSA Year Discovered:: 12/12/20 E.coli ESBL; 06/21/18 MRSA MDRO Source:: Urine-ESBL; Groin-MRSA Past Surgical History: No Surgical Hx Reported Additional Past Surgical History / Comment(s): hx picc line-since removed Past Anesthesia/Blood Transfusion Reactions: No Reported Reaction Additional Past Anesthesia/Blood Transfusion Reaction / Comm: wild animal caretaker says not that she knows of Past Psychological History: Anxiety, Schizoaffective Disorder Smoking Status: Never smoker Past Alcohol Use History: None Reported Past Drug Use History: None Reported - Past Family History Father Family Medical History: Cancer Additional Family Medical History / Comment(s): lymphoma Mother Family Medical History: AFIB, Congestive Heart Failure (CHF) Medications and Allergies Home Medications Medication Instructions Recorded Confirmed Type Aspirin 325 mg PO DAILY@0700 02/13/14 08/13/21 History OXcarbazepine [Trileptal] 300 mg PO BID@0700,199902/13/14 08/13/21 History Sertraline [Zoloft] 150 mg PO DAILY@0700 02/13/14 08/13/21 History Ziprasidone [Geodon] 80 mg PO BID@0700,199902/13/14 08/13/21 History lamoTRIgine [LaMICtal] 200 mg PO TID@0700,1400,199902/13/14 08/13/21 History Cranberry Fruit Extract [Cranberry] 500 mg PO BID@0700,199901/19/18 08/13/21 History Docusate [Colace] 100 mg PO DAILY@0711/26/18 08/13/21 History Metoprolol Tartrate [Lopressor] 12.5 mg PO BID@699,199912/12/20 08/13/21 History levETIRAcetam [Keppra] 250 mg PO BID@699,199912/12/20 08/13/21 History Ferrous Sulfate [Iron (65 MG 325 mg PO BID@699,199903/13/21 08/13/21 History Elemental)] LORazepam 0.5 mg PO DAILY PRN 03/13/21 08/13/21 History Clotrimazole Cream [Lotrimin Cream] 1 applic TOPICAL HS@199908/13/21 08/13/21 History Allergies Allergy/AdvReac Type Severity Reaction Status Date / Time No Known Allergies Allergy Verified 08/13/21 13:35 Physical Exam Vitals: Vital Signs Temp Pulse Resp BP Pulse Ox 08/13/21 15:49 84 18 129/75 98 08/13/21 13:49 78 18 120/78 95 08/13/21 12:11 97.9 F 86 18 148/84 96 Intake and Output 08/13/21 08/13/21 08/13/21 06:59 14:59 22:59 Other: Weight 68.039 kg Results CBC & Chem 7: 08/13/21 12:25 08/13/21 12:25 Labs: Abnormal Lab Results - Last 24 Hours (Table) 08/13/21 08/13/21 08/13/21 Range/Units 12:25 12:25 13:49 RBC 3.73 L (3.80-5.40) m/uL Hgb 10.7 L (11.4-16.0) gm/dL Hct 32.9 L (34.0-46.0) % Lymphocytes # 0.6 L (1.0-4.8) k/uL Sodium 134 L (137-145) mmol/L Carbon Dioxide 20 L (22-30) mmol/L BUN 33 H (7-17) mg/dL Creatinine 1.55 H (0.52-1.04) mg/dL Glucose 131 H (74-99) mg/dL Alkaline Phosphatase 136 H (38-126) U/L Urine Nitrite Positive H (Negative) Ur Leukocyte Esterase Large H (Negative) Urine WBC 15 H (0-5) /hpf Urine Bacteria Many H (None) /hpf Urine Mucus Rare H (None) /hpf
[2021-08-14] MEDS: HEPARIN SODIUM,PORCINE/PF 5,000 UNIT/0.5 ML SYRINGE SQ SCH ×4 (00:05→23:34)
--- NOTE | 2021-08-14 00:18 | P.CNNES ---
History of Present Illness Consult date: 08/13/21 Requesting physician: Derian Snider Reason for Consult: Breakthrough seizure History of Present Illness: Patient is a 66-year-old female came to the hospital by ambulance today at 12:09 PM. EMS flow sheet not available in the chart. Patient is cognitively impaired and lives in a long-term. Patient states that she came to the hospital because she had 4 seizures. She does not remember what happens during the seizure. She claims that she has history of seizures since she was really little. She does not know name of the neurologist that she follows. Patient had an EEG on 11/28/2018, which revealed abnormal EEG due to bifrontal temporal slowing, left more than right, suggestive of focal cortical neuronal dysfunction. This may be related to underlying structural abnormality. Occasional sharp waves were seen in the left temporal region suggests focal cortical irritability and tendency for seizures. Patient currently takes Geodon 80 mg twice a day, aspirin 325 mg, sertraline 150 mg daily, Lamictal 200 mg 3 times a day, Trileptal 300 mg twice a day, Keppra 250 mA twice a day, lorazepam 0.5 mg daily as needed. Chest x-ray showed no acute process. EKG shows sinus rhythm, possible left atrial enlargement. Blood test shows normal WBC hemoglobin 10.7, platelets 244. Sodium 134 potassium 4.8, BUN 33, creatinine 1.55. Hepatic panel is normal. UA shows positive nitrite, large in moderate of leukocyte Estrace, 15 WBCs and many bacteria. Bautista virus PCR negative. Patient's last Lamictal level was 6.5(2-15], Keppra level was 8.8 (3-60) on 02/12/2021. Trileptal level was 20.7 (10-35) Patient denies headache. States she does not have any family, denies tobacco use. It appears from electronic records, that her sister is her legal guardian. She was not available at this time. We will try to obtain collateral history from the family member. Review of Systems Patient denies headache. Offers no complaints. Other review of systems cannot be assessed because of mental status. ROS unobtainable: due to mental status Past Medical History Past Medical History: Atrial Fibrillation, Hypertension, Pneumonia, Seizure Disorder Additional Past Medical History / Comment(s): Vertigo, paroxysmal atrial fibrillation, moderate intellectual disability, SEPTEMBER 2016 UTI AND BACTEREMIA History of Any Multi-Drug Resistant Organisms: ESBL, MRSA Date of last positivie culture/infection: 12/12/20 E.coli ESBL; 06/21/18 MRSA MDRO Source:: Urine-ESBL; Groin-MRSA Past Surgical History: No Surgical Hx Reported Additional Past Surgical History / Comment(s): hx picc line-since removed Past Anesthesia/Blood Transfusion Reactions: No Reported Reaction Additional Past Anesthesia/Blood Transfusion Reaction / Comment(s): respiratory care assistant says not that she knows of Past Psychological History: Anxiety, Schizoaffective Disorder Smoking Status: Never smoker Past Alcohol Use History: None Reported Past Drug Use History: None Reported - Past Family History Father Family Medical History: Cancer Additional Family Medical History / Comment(s): lymphoma Mother Family Medical History: AFIB, Congestive Heart Failure (CHF) Medications and Allergies Home Medications Medication Instructions Recorded Confirmed Type Aspirin 325 mg PO DAILY@0700 02/13/14 08/13/21 History OXcarbazepine [Trileptal] 300 mg PO BID@0700,199902/13/14 08/13/21 History Sertraline [Zoloft] 150 mg PO DAILY@0700 02/13/14 08/13/21 History Ziprasidone [Geodon] 80 mg PO BID@0700,199902/13/14 08/13/21 History lamoTRIgine [LaMICtal] 200 mg PO TID@0700,1399,199902/13/14 08/13/21 History Cranberry Fruit Extract [Cranberry] 500 mg PO BID@0700,199901/19/18 08/13/21 History Docusate [Colace] 100 mg PO DAILY@0700 11/26/18 08/13/21 History Metoprolol Tartrate [Lopressor] 12.5 mg PO BID@0700,199912/12/20 08/13/21 History levETIRAcetam [Keppra] 250 mg PO BID@0700,199912/12/20 08/13/21 History Ferrous Sulfate [Iron (65 MG 325 mg PO BID@0700,199903/13/21 08/13/21 History Elemental)] LORazepam 0.5 mg PO DAILY PRN 03/13/21 08/13/21 History Clotrimazole Cream [Lotrimin Cream] 1 applic TOPICAL HS@199908/13/21 08/13/21 History Allergies Allergy/AdvReac Type Severity Reaction Status Date / Time No Known Allergies Allergy Verified 08/13/21 13:35 Physical Examination - Vital Signs Vital Signs: Vital Signs Temp Pulse Resp BP Pulse Ox 08/13/21 15:49 84 18 129/75 98 08/13/21 13:49 78 18 120/78 95 08/13/21 12:11 97.9 F 86 18 148/84 96 Intake and Output 08/13/21 08/13/21 08/13/21 06:59 14:59 22:59 Other: Weight 68.039 kg Patient is an elderly female, in no acute distress. Patient is alert awake. Patient knows her name and that she is 66 years of age. Could not tell me her birthday although she knows she was born in 1955 but not the month or the date. She could not tell the current month or the year or [place] or name of the president. Speech and language functions otherwise are normal. Detail cognitive function testing deferred. Attention, concentration and fund of knowledge is very limited. On cranial examination, pupils are equal, round and reacting to light, visual carlson are full on confrontation, extraocular muscles are intact with no nyst agmus. Face is symmetric, tongue protrudes to the midline. Palatal elevation and sensation normal, hearing and shoulder shrug normal, facial sensation normal. Shoulder shrug normal. On muscle strength testing, there is no pronator drift and the strength is normal in arms and legs distally and proximally. Deep tendon reflexes are 2 in the upper limbs and lower limbs and plantars are withdrawal bilaterally. Sensory to touch is equal with no neglect. Cerebellar function showed no ataxia for [id number] testing, although patient was tremulous. Tone reveals some paratonia in the arms and bulk of muscles normal. Gait not checked. On general examination, there is no carotid bruit or murmur, S1-S2 audible. Abdomen is soft nontender. Bowel sounds present. No organomegaly. Chest is clear. Peripheral pulses are present. No edema. Results - Laboratory Findings CBC and BMP: 08/13/21 12:25 08/13/21 12:25 Abnormal Lab Findings: Abnormal Labs 08/13/21 08/13/21 08/13/21 12:25 12:25 13:49 RBC 3.73 L Hgb 10.7 L Hct 32.9 L Lymphocytes # 0.6 L Sodium 134 L Carbon Dioxide 20 L BUN 33 H Creatinine 1.55 H Glucose 131 H Alkaline Phosphatase 136 H Urine Nitrite Positive H Ur Leukocyte Esterase Large H Urine WBC 15 H Urine Bacteria Many H Urine Mucus Rare H Assessment and Plan Assessment: * Breakthrough seizure, unclear etiology. Perhaps due to acute UTI. * History of seizure disorder since childhood. * Acute UTI. * Developmental delays. Plan: * We will check Trileptal, Keppra and Lamictal levels. * Continue same dose of seizure medications including Keppra 250 mm twice a day, Lamictal 200 mg 3 times a day and Trileptal 300 mg twice a day. * Patient probably has acute UTI, which may be contributing to breakthrough seizure. Urine cultures pending. Patient currently on Zosyn. * We will try to obtain collateral history from patient's guardian. * Thank you for the consult.
[2021-08-14] MEDS: SODIUM CHLORIDE 0.9% 1,000 ML IV SCH ×3 (05:58→16:41)
[2021-08-14] MEDS: ASPIRIN 325 MG TAB PO SCH (07:42)
[2021-08-14] MEDS: lamoTRIgine 100 MG TAB PO SCH ×3 (07:42→20:09)
[2021-08-14] MEDS: METOPROLOL TARTRATE 12.5 MG TAB PO SCH ×2 (07:42→20:09)
[2021-08-14] MEDS: DOCUSATE 100 MG CAP PO SCH (07:42)
[2021-08-14] MEDS: levETIRAcetam 250 MG TAB PO SCH ×2 (07:42→20:09)
[2021-08-14] MEDS: FERROUS SULFATE 325 MG TAB PO SCH ×2 (07:42→20:09)
[2021-08-14] MEDS: ZIPRASIDONE 80 MG CAP PO SCH ×2 (07:43→20:09)
[2021-08-14] MEDS: SERTRALINE 100 MG TAB PO SCH (07:43)
[2021-08-14] MEDS: OXcarbazepine 300 MG TAB PO SCH ×2 (07:43→20:09)
[2021-08-14 09:32] LABS: Basophils # (A) 0.05 X 10*3/uL (0.00-0.10); Basophils % (A) 0.6 %; Eosinophils # (A) 0.05 X 10*3/uL (0.04-0.35); Eosinophils % (A) 0.6 %; HCT 30.7 % (37.2-46.3); HGB 9.5 g/dL (12.0-15.0); Immature Grans, Automated 0.4 %; Lymphocytes % (A) 23.9 %; MCH 27.6 pg (27.0-32.0); MCHC 30.9 g/dL (32.0-37.0); MCV 89.2 fL (80.0-97.0); Monocytes # (A) 1.08 X 10*3/uL (0.20-1.00); Monocytes % (A) 12.9 %; NRBC Per 100 WBC 0 /100 WBCS (0.0-0.0); Neutrophils # (A) 5.17 X 10*3/uL (1.80-7.70); Neutrophils % (A) 61.6 %; Platelet Count 237 X 10*3/uL (140-440); RBC 3.44 X 10*6/uL (4.10-5.20); RDW 14.4 % (11.5-14.5); WBC 8.38 X 10*3/uL (4.50-10.00)
[2021-08-14 09:48] LABS: ALT 11 U/L (8-44); AST 12 U/L (13-35); African American GFR (CKD) 42.2 (60.0-200.0); Albumin 3.5 g/dL (3.8-4.9); Albumin/Globulin Ratio 1.09 (1.60-3.17); Alkaline Phosphatase 128 U/L (41-126); BUN/Creat Ratio 16.87 Ratio (12.00-20.00); Blood Urea Nitrogen 25.3 mg/dL (9.0-27.0); Calcium 9.3 mg/dL (8.7-10.3); Carbon Dioxide 20.9 mmol/L (20.0-27.5); Chloride 104 mmol/L (96-109); Globulin 3.2 g/dL (1.6-3.3); Glucose 99 mg/dL (70-110); Magnesium 2.1 mg/dL (1.5-2.4); Non-African American GFR(CKD) 36.4 (60.0-200.0); Sodium 137 mmol/L (135-145); Total Bilirubin <0.15 mg/dL (0.30-1.20); Total Protein 6.7 g/dL (6.2-8.2)
[2021-08-14] MEDS: MEROPENEM 1 GM in SODIUM CHLORIDE 0.9% 100 ML IVPB SCH ×2 (10:21→20:09)
[2021-08-14] MEDS: ACETAMINOPHEN TAB 325 MG TAB PO PRN ×2 (10:56→22:31)
--- NOTE | 2021-08-14 13:39 | P.PN ---
Subjective Progress Note Date: 08/14/21 H&P Date: 08/13/21 Chief Complaint: Breakthrough seizure 66-year-old female with past medical history significant for developmental delay and seizure disorder presented to the emergency room with a chief complaint of breakthrough seizures 4 the patient had one episode last night and 3 episodes today by her caregiver. Patient is very poor history and most of the history obtained from records and sister at the bedside. Sister stated that most of her seizures were induced by recurrent urinary tract infection patient was noted to have history of recurrent ESBL UTIs. Urinalysis on emergency room came back abnormal. Patient currently awake oriented to herself a baseline as mentioned earlier she is very poor historian. No reported fever or dysuria or frequency.. No nausea vomiting or abdominal pain. Patient denies any shortness of breath or chest pain. Interval history: Patient seen and examined at the bedside. She seems to be comfortable. She denies any chest pain or shortness breath. Reports acute changes overnight Objective - Vital Signs Vital signs: Vital Signs Temp 97.8 F 08/14/21 08:00 Pulse 83 08/14/21 08:00 Resp 17 08/14/21 09:05 BP 153/82 08/14/21 08:00 Pulse Ox 97 08/14/21 08:00 Intake & Output 08/13/21 08/14/21 08/14/21 18:59 06:59 18:59 Intake Total 990 Balance 990 Weight 68.039 kg 68.039 kg Intake: Intake, IV Titration 750 Amount Sodium Chloride 0.9% 1, 750 000 ml @ 75 mls/hr IV . [id number] [facility] Rx#:[id number] Oral 240 Other: # Voids 1 - Exam General: non toxic, no distress, appears at stated age Derm: warm, dry Head: atraumatic, normocephalic, symmetric Eyes: EOMI, no lid lag, anicteric sclera Mouth: no lip lesion, mucus membranes moist Cardiovascular: S1S2 reg, no murmur, positive posterior tibial pulse bilateral, Lungs: CTA bilateral, no rhonchi, no rales , no accessory muscle use Abdominal: soft, nontender to palpation, no guarding, no appreciable organomegaly Ext: no gross muscle atrophy, no edema, no contractures Neuro: CN II-XI grossly intact, no focal neuro deficits Psych: Alert, oriented, appropriate affect - Labs CBC & Chem 7: 08/14/21 04:18 08/14/21 04:18 Labs: Abnormal Lab Results - Last 24 Hours (Table) 08/13/21 08/14/21 08/14/21 Range/Units 13:49 04:18 04:18 RBC 3.44 L (4.10-5.20) X 10*6/uL Hgb 9.5 L (12.0-15.0) g/dL Hct 30.7 L (37.2-46.3) % MCHC 30.9 L (32.0-37.0) g/dL MPV 9.0 L (9.5-12.2) fL Monocytes # 1.08 H (0.20-1.00) X 10*3/uL Est GFR (CKD-EPI)AfAm 42.2 L (60.0-200.0) Est GFR (CKD-EPI)NonAf 36.4 L (60.0-200.0) Total Bilirubin <0.15 L (0.30-1.20) mg/dL AST 12 L (13-35) U/L Alkaline Phosphatase 128 H (41-126) U/L Albumin 3.5 L (3.8-4.9) g/dL Albumin/Globulin Ratio 1.09 L (1.60-3.17) g/dL Urine Nitrite Positive H (Negative) Ur Leukocyte Esterase Large H (Negative) Urine WBC 15 H (0-5) /hpf Urine Bacteria Many H (None) /hpf Urine Mucus Rare H (None) /hpf Microbiology - Last 24 Hours (Table) 08/13/21 13:49 Urine Culture - Preliminary Urine,Voided Assessment and Plan Assessment: #Breakthrough seizures -Patient had total of 3 episodes in the past 18 hours -Per records and family seems to be provoked by recurrent UTIs -Neurology ordered Trileptal, Keppra and Lamictal levels. -Neurology input appreciated #Recurrent ESBL urinary tract infection -urine and blood culture--pending -Infectious disease input appreciated -Start meropenem 1 g every 12 hours -IV fluids -Await for final urine culture -Blood culture ordered #Chronic kidney disease disease III -Creatinine at baseline -Avoid Nephrotoxic agents #History of paroxysmal A. fib -Normal sinus rhythm -Patient not on oral anticoagulants -Resume aspirin and metoprolol #Developmental delay #Depression -Resume medications #DVT prophylaxis subcutaneous heparin
--- NOTE | 2021-08-14 16:02 | P.PN ---
Subjective Progress Note Date: 08/14/21 Principal diagnosis: Urinary tract infection Patient is a 66 [facility] female a [facility] in this patient with a history of recurrent UTI previous culture positive for ESBL admitted to the hospital with seizure activity positive UA and concern for symptomatic urinary tract infection. On today's evaluation that is 08/14/2021 the patient remains to be afebrile, the patient is more awake and alert, the patient is breathing comfortably, denies any chest pain shortness of breath or cough no abdominal pain and no diarrhea Objective - Vital Signs Vital signs: Vital Signs Temp 98.1 F 08/14/21 14:00 Pulse 78 08/14/21 14:00 Resp 19 08/14/21 14:00 BP 124/74 08/14/21 14:00 Pulse Ox 97 08/14/21 14:00 Intake & Output 08/13/21 08/14/21 08/14/21 18:59 06:59 18:59 Intake Total 990 480 Balance 990 480 Weight 68.039 kg 68.039 kg Intake: Intake, IV Titration 750 Amount Sodium Chloride 0.9% 1, 750 000 ml @ 75 mls/hr IV . [id number] [facility] Rx#:[id number] Oral 240 480 Other: # Voids 1 - Exam GENERAL DESCRIPTION: An middle-aged female lying in bed in no distress RESPIRATORY SYSTEM: Unlabored breathing , decreased breath sounds at bases HEART: S1 S2 regular rate and rhythm , ABDOMEN: Soft , no tenderness EXTREMITIES: No edema feet - Labs CBC & Chem 7: 08/14/21 04:18 08/14/21 04:18 Labs: Abnormal Lab Results - Last 24 Hours (Table) 08/14/21 08/14/21 Range/Units 04:18 04:18 RBC 3.44 L (4.10-5.20) X 10*6/uL Hgb 9.5 L (12.0-15.0) g/dL Hct 30.7 L (37.2-46.3) % MCHC 30.9 L (32.0-37.0) g/dL MPV 9.0 L (9.5-12.2) fL Monocytes # 1.08 H (0.20-1.00) X 10*3/uL Est GFR (CKD-EPI)AfAm 42.2 L (60.0-200.0) Est GFR (CKD-EPI)NonAf 36.4 L (60.0-200.0) Total Bilirubin <0.15 L (0.30-1.20) mg/dL AST 12 L (13-35) U/L Alkaline Phosphatase 128 H (41-126) U/L Albumin 3.5 L (3.8-4.9) g/dL Albumin/Globulin Ratio 1.09 L (1.60-3.17) g/dL Microbiology - Last 24 Hours (Table) 08/13/21 13:49 Urine Culture - Preliminary Urine,Voided Assessment and Plan (1) UTI (urinary tract infection) Current Visit: Yes Status: Acute Code(s): N39.0 - URINARY TRACT INFECTION, SITE NOT SPECIFIED SNOMED Code(s): 82114193 Plan: Patient presented to hospital with seizure activity positive UA concerning for symptomatic urinary tract infection patient is currently covered with the meropenem to continue while waiting for the urine culture to be finalized and continue supportive care Time with Patient: Less than 30
[2021-08-14] MEDS: CLOTRIMAZOLE 1% CREAM 30 GM TUBE TOPICAL SCH (20:08)
[2021-08-15] MEDS: ASPIRIN 325 MG TAB PO SCH (07:43)
[2021-08-15] MEDS: ZIPRASIDONE 80 MG CAP PO SCH ×2 (07:43→22:06)
[2021-08-15] MEDS: levETIRAcetam 250 MG TAB PO SCH ×2 (07:43→22:05)
[2021-08-15] MEDS: DOCUSATE 100 MG CAP PO SCH (07:43)
[2021-08-15] MEDS: lamoTRIgine 100 MG TAB PO SCH ×3 (07:44→22:06)
[2021-08-15] MEDS: METOPROLOL TARTRATE 12.5 MG TAB PO SCH ×2 (07:44→22:06)
[2021-08-15] MEDS: SERTRALINE 100 MG TAB PO SCH (07:44)
[2021-08-15] MEDS: HEPARIN SODIUM,PORCINE/PF 5,000 UNIT/0.5 ML SYRINGE SQ SCH ×3 (07:44→23:44)
[2021-08-15] MEDS: FERROUS SULFATE 325 MG TAB PO SCH ×2 (07:44→22:06)
[2021-08-15] MEDS: OXcarbazepine 300 MG TAB PO SCH ×2 (07:44→22:08)
[2021-08-15 09:31] LABS: ALT 9 U/L (8-44); AST 12 U/L (13-35); African American GFR (CKD) 42.2 (60.0-200.0); Albumin 3.2 g/dL (3.8-4.9); Alkaline Phosphatase 116 U/L (41-126); BUN/Creat Ratio 12.13 Ratio (12.00-20.00); Blood Urea Nitrogen 18.2 mg/dL (9.0-27.0); Calcium 9.2 mg/dL (8.7-10.3); Carbon Dioxide 21.3 mmol/L (20.0-27.5); Chloride 109 mmol/L (96-109); Globulin 2.9 g/dL (1.6-3.3); Glucose 87 mg/dL (70-110); Magnesium 2.2 mg/dL (1.5-2.4); Non-African American GFR(CKD) 36.4 (60.0-200.0); Potassium 4.7 mmol/L (3.5-5.5); Sodium 141 mmol/L (135-145); Total Bilirubin <0.15 mg/dL (0.30-1.20); Total Protein 6.1 g/dL (6.2-8.2)
[2021-08-15] MEDS: MEROPENEM 1 GM in SODIUM CHLORIDE 0.9% 100 ML IVPB SCH ×2 (09:37→22:08)
[2021-08-15 12:07] LABS: Basophils # (A) 0.03 X 10*3/uL (0.00-0.10); Basophils % (A) 0.4 %; Eosinophils # (A) 0.18 X 10*3/uL (0.04-0.35); Eosinophils % (A) 2.6 %; HCT 30.9 % (37.2-46.3); HGB 9.5 g/dL (12.0-15.0); Immature Grans, Automated 0.4 %; Lymphocytes # (A) 1.87 X 10*3/uL (0.90-5.00); Lymphocytes % (A) 26.8 %; MCH 27.4 pg (27.0-32.0); MCHC 30.7 g/dL (32.0-37.0); Mean Platelet Volume 9.2 fL (9.5-12.2); Monocytes # (A) 0.77 X 10*3/uL (0.20-1.00); NRBC Per 100 WBC 0 /100 WBCS (0.0-0.0); Neutrophils # (A) 4.11 X 10*3/uL (1.80-7.70); Neutrophils % (A) 58.8 %; Platelet Count 241 X 10*3/uL (140-440); RBC 3.47 X 10*6/uL (4.10-5.20); RDW 14.6 % (11.5-14.5); WBC 6.99 X 10*3/uL (4.50-10.00)
[2021-08-15 13:18] LABS: Levetiracetam (Keppra) 10.4 ug/mL (3.0-60.0)
[2021-08-15 13:19] LABS: Lamotrigine (Lamictal) 6.3 ug/mL (2.0-15.0)
--- NOTE | 2021-08-15 13:19 | P.PN ---
Subjective Progress Note Date: 08/15/21 H&P Date: 08/13/21 Chief Complaint: Breakthrough seizure 66-year-old female with past medical history significant for developmental delay and seizure disorder presented to the emergency room with a chief complaint of breakthrough seizures 4 the patient had one episode last night and 3 episodes today by her caregiver. Patient is very poor history and most of the history obtained from records and sister at the bedside. Sister stated that most of her seizures were induced by recurrent urinary tract infection patient was noted to have history of recurrent ESBL UTIs. Urinalysis on emergency room came back abnormal. Patient currently awake oriented to herself a baseline as mentioned earlier she is very poor historian. No reported fever or dysuria or frequency.. No nausea vomiting or abdominal pain. Patient denies any shortness of breath or chest pain. Interval history: Patient seen and examined at the bedside. She seems to be comfortable. She denies any chest pain or shortness breath. No reports of acute changes overnight. Objective - Vital Signs Vital signs: Vital Signs Temp 98.5 F 08/15/21 07:09 Pulse 67 08/15/21 07:09 Resp 18 08/15/21 07:09 BP 133/77 08/15/21 07:09 Pulse Ox 99 08/15/21 07:09 Intake & Output 08/14/21 08/15/21 08/15/21 18:59 06:59 18:59 Intake Total 1620 1100 Balance 1620 1100 Intake: Intake, IV Titration 100 Amount Meropenem 1 gm In Sodium 100 Chloride 0.9% 100 ml @ 33 .3 mls/hr IVPB Q12HR [facility] Rx#:[id number] Oral 1620 1000 Other: # Voids 2 5 # Bowel Movements 0 - Exam General: non toxic, no distress, appears at stated age Derm: warm, dry Head: atraumatic, normocephalic, symmetric Eyes: EOMI, no lid lag, anicteric sclera Mouth: no lip lesion, mucus membranes moist Cardiovascular: S1S2 reg, no murmur, positive posterior tibial pulse bilateral, Lungs: CTA bilateral, no rhonchi, no rales , no accessory muscle use Abdominal: soft, nontender to palpation, no guarding, no appreciable organomegaly Ext: no gross muscle atrophy, no edema, no contractures Neuro: CN II-XI grossly intact, no focal neuro deficits Psych: Alert, oriented, appropriate affect - Labs CBC & Chem 7: 08/15/21 05:51 08/15/21 05:51 Labs: Abnormal Lab Results - Last 24 Hours (Table) 08/15/21 08/15/21 Range/Units 05:51 05:51 RBC 3.47 L (4.10-5.20) X 10*6/uL Hgb 9.5 L (12.0-15.0) g/dL Hct 30.9 L (37.2-46.3) % MCHC 30.7 L (32.0-37.0) g/dL RDW 14.6 H (11.5-14.5) % MPV 9.2 L (9.5-12.2) fL Est GFR (CKD-EPI)AfAm 42.2 L (60.0-200.0) Est GFR (CKD-EPI)NonAf 36.4 L (60.0-200.0) Total Bilirubin <0.15 L (0.30-1.20) mg/dL AST 12 L (13-35) U/L Total Protein 6.1 L (6.2-8.2) g/dL Albumin 3.2 L (3.8-4.9) g/dL Albumin/Globulin Ratio 1.10 L (1.60-3.17) g/dL Microbiology - Last 24 Hours (Table) 08/13/21 16:37 Blood Culture - Preliminary Blood No Growth after 24 hours 08/13/21 16:41 Blood Culture - Preliminary Blood No Growth after 24 hours 08/13/21 13:49 Urine Culture - Preliminary Urine,Voided Gram Neg Bacilli Assessment and Plan Assessment: #Breakthrough seizures -Patient had total of 3 episodes in the past 18 hours -Per records and family seems to be provoked by recurrent UTIs -Neurology ordered Trileptal, Keppra and Lamictal levels. -Neurology input appreciated #Recurrent ESBL urinary tract infection -urine and blood culture--gram-negative bacilli final sensitivity still pending. -Infectious disease input appreciated -Start meropenem 1 g every 12 hours -IV fluids -Await for final urine culture -Blood culture ordered #Chronic kidney disease disease III -Creatinine at baseline -Avoid Nephrotoxic agents #History of paroxysmal A. fib -Normal sinus rhythm -Patient not on oral anticoagulants -Resume aspirin and metoprolol #Developmental delay #Depression -Resume medications #DVT prophylaxis subcutaneous heparin
[2021-08-15] MEDS: CLOTRIMAZOLE 1% CREAM 30 GM TUBE TOPICAL SCH (22:05)
[2021-08-15] MEDS: ACETAMINOPHEN TAB 325 MG TAB PO PRN (22:09)
--- NOTE | 2021-08-16 02:11 | P.PN ---
Subjective Progress Note Date: 08/15/21 08/15/2021: This is a telemedicine neurology follow performed today on 08/15/2021. Patient is laying comfortably in the bed. Denies any headaches. No chest pain. No further seizures noted. Patient states I'm doing good. No further seizures. Objective - Vital Signs Vital signs: Vital Signs Temp 97.4 F L 08/15/21 19:56 Pulse 72 08/15/21 20:45 Resp 16 08/15/21 20:45 BP 142/61 08/15/21 19:56 Pulse Ox 98 08/15/21 19:56 Intake & Output 08/15/21 08/15/21 08/16/21 06:59 18:59 06:59 Intake Total 1100 100 Balance 1100 100 Intake: Intake, IV Titration 100 100 Amount Meropenem 1 gm In Sodium 100 100 Chloride 0.9% 100 ml @ 33 .3 mls/hr IVPB Q12HR [facility] Rx#:[id number] Oral 1000 Other: Voiding Method Toilet # Voids 5 7 # Bowel Movements 0 - Exam Unchanged. Patient is alert and awake. Patient's face is symmetric. Speech and language functions are stable. - Labs CBC & Chem 7: 08/15/21 05:51 08/15/21 05:51 Labs: Abnormal Lab Results - Last 24 Hours (Table) 08/15/21 08/15/21 Range/Units 05:51 05:51 RBC 3.47 L (4.10-5.20) X 10*6/uL Hgb 9.5 L (12.0-15.0) g/dL Hct 30.9 L (37.2-46.3) % MCHC 30.7 L (32.0-37.0) g/dL RDW 14.6 H (11.5-14.5) % MPV 9.2 L (9.5-12.2) fL Est GFR (CKD-EPI)AfAm 42.2 L (60.0-200.0) Est GFR (CKD-EPI)NonAf 36.4 L (60.0-200.0) Total Bilirubin <0.15 L (0.30-1.20) mg/dL AST 12 L (13-35) U/L Total Protein 6.1 L (6.2-8.2) g/dL Albumin 3.2 L (3.8-4.9) g/dL Albumin/Globulin Ratio 1.10 L (1.60-3.17) g/dL Microbiology - Last 24 Hours (Table) 08/13/21 16:37 Blood Culture - Preliminary Blood No Growth after 48 hours 08/13/21 16:41 Blood Culture - Preliminary Blood No Growth after 48 hours 08/13/21 13:49 Urine Culture - Preliminary Urine,Voided Gram Neg Bacilli Assessment and Plan Assessment: * Breakthrough seizure, unclear etiology. Perhaps due to acute UTI. * History of seizure disorder since childhood. * Acute UTI. * Developmental delays. Plan: * Trileptal level pending, Keppra 10.4 and Lamictal levels 6.3. * Continue same dose of seizure medications including Keppra 250 mm twice a day, Lamictal 200 mg 3 times a day and Trileptal 300 mg twice a day. * Patient probably has acute UTI, which may be contributing to breakthrough seizure. Urine cultures grew gram-negative bacilli. Patient currently on Zosyn. * No need to change antiepileptic medication. * Neurology will sign off. Please reconsult neurology if any other concerns.
[2021-08-16] MEDS: levETIRAcetam 250 MG TAB PO SCH ×2 (07:50→22:15)
[2021-08-16] MEDS: lamoTRIgine 100 MG TAB PO SCH ×3 (07:50→22:15)
[2021-08-16] MEDS: ZIPRASIDONE 80 MG CAP PO SCH ×2 (07:50→22:16)
[2021-08-16] MEDS: FERROUS SULFATE 325 MG TAB PO SCH ×2 (07:50→22:15)
[2021-08-16] MEDS: ASPIRIN 325 MG TAB PO SCH (07:50)
[2021-08-16] MEDS: METOPROLOL TARTRATE 12.5 MG TAB PO SCH ×2 (07:50→22:16)
[2021-08-16] MEDS: MEROPENEM 1 GM in SODIUM CHLORIDE 0.9% 100 ML IVPB SCH ×2 (07:50→22:17)
[2021-08-16] MEDS: HEPARIN SODIUM,PORCINE/PF 5,000 UNIT/0.5 ML SYRINGE SQ SCH ×3 (07:50→23:31)
[2021-08-16] MEDS: DOCUSATE 100 MG CAP PO SCH (07:51)
[2021-08-16] MEDS: OXcarbazepine 300 MG TAB PO SCH ×2 (07:51→22:16)
[2021-08-16] MEDS: SERTRALINE 100 MG TAB PO SCH (07:51)
[2021-08-16 08:59] LABS: Basophils # (A) 0.07 X 10*3/uL (0.00-0.10); Basophils % (A) 0.8 %; Eosinophils # (A) 0.36 X 10*3/uL (0.04-0.35); Eosinophils % (A) 4.2 %; HCT 31.8 % (37.2-46.3); HGB 9.7 g/dL (12.0-15.0); Immature Grans, Automated 0.3 %; Lymphocytes # (A) 3.08 X 10*3/uL (0.90-5.00); Lymphocytes % (A) 35.8 %; MCH 27.5 pg (27.0-32.0); MCHC 30.5 g/dL (32.0-37.0); MCV 90.1 fL (80.0-97.0); Mean Platelet Volume 8.9 fL (9.5-12.2); Monocytes % (A) 9.3 %; NRBC Per 100 WBC 0 /100 WBCS (0.0-0.0); Neutrophils # (A) 4.26 X 10*3/uL (1.80-7.70); Neutrophils % (A) 49.6 %; Platelet Count 252 X 10*3/uL (140-440); RBC 3.53 X 10*6/uL (4.10-5.20); RDW 14.6 % (11.5-14.5)
[2021-08-16 09:08] LABS: ALT 10 U/L (8-44); AST 14 U/L (13-35); African American GFR (CKD) 35.5 (60.0-200.0); Albumin 3.2 g/dL (3.8-4.9); Albumin/Globulin Ratio 1.07 (1.60-3.17); Alkaline Phosphatase 120 U/L (41-126); BUN/Creat Ratio 10.81 Ratio (12.00-20.00); Blood Urea Nitrogen 18.7 mg/dL (9.0-27.0); Calcium 9.4 mg/dL (8.7-10.3); Carbon Dioxide 21.2 mmol/L (20.0-27.5); Chloride 107 mmol/L (96-109); Glucose 81 mg/dL (70-110); Magnesium 2.1 mg/dL (1.5-2.4); Non-African American GFR(CKD) 30.7 (60.0-200.0); Sodium 139 mmol/L (135-145); Total Bilirubin <0.15 mg/dL (0.30-1.20); Total Protein 6.2 g/dL (6.2-8.2)
--- NOTE | 2021-08-16 09:29 | P.PN ---
Subjective Progress Note Date: 08/15/21 Principal diagnosis: Urinary tract infection Patient is a 66 year female a senior care resident in this patient with a history of recurrent UTI previous culture positive for ESBL admitted to the hospital with seizure activity positive UA and concern for symptomatic urinary tract infection. On today's evaluation that is 08/15/2021 the patient continues to be afebrile, t he patient is breathing comfortably on room air, denies any chest pain shortness of breath or cough no abdominal pain and no diarrhea, no seizure activity has been reported Objective - Vital Signs Vital signs: Vital Signs Temp 98.5 F 08/15/21 07:09 Pulse 67 08/15/21 07:09 Resp 18 08/15/21 07:09 BP 133/77 08/15/21 07:09 Pulse Ox 99 08/15/21 07:09 Intake & Output 08/14/21 08/15/21 08/15/21 18:59 06:59 18:59 Intake Total 1620 1100 Balance 1620 1100 Intake: Intake, IV Titration 100 Amount Meropenem 1 gm In Sodium 100 Chloride 0.9% 100 ml @ 33 .3 mls/hr IVPB Q12HR [facility] Rx#:[id number] Oral 1620 1000 Other: # Voids 2 5 # Bowel Movements 0 - Exam GENERAL DESCRIPTION: An middle-aged female lying in bed in no distress RESPIRATORY SYSTEM: Unlabored breathing , decreased breath sounds at bases HEART: S1 S2 regular rate and rhythm , ABDOMEN: Soft , no tenderness EXTREMITIES: No edema feet - Labs CBC & Chem 7: 08/16/21 04:31 08/16/21 04:31 Labs: Abnormal Lab Results - Last 24 Hours (Table) 08/15/21 08/15/21 Range/Units 05:51 05:51 RBC 3.47 L (4.10-5.20) X 10*6/uL Hgb 9.5 L (12.0-15.0) g/dL Hct 30.9 L (37.2-46.3) % MCHC 30.7 L (32.0-37.0) g/dL RDW 14.6 H (11.5-14.5) % MPV 9.2 L (9.5-12.2) fL Est GFR (CKD-EPI)AfAm 42.2 L (60.0-200.0) Est GFR (CKD-EPI)NonAf 36.4 L (60.0-200.0) Total Bilirubin <0.15 L (0.30-1.20) mg/dL AST 12 L (13-35) U/L Total Protein 6.1 L (6.2-8.2) g/dL Albumin 3.2 L (3.8-4.9) g/dL Albumin/Globulin Ratio 1.10 L (1.60-3.17) g/dL Microbiology - Last 24 Hours (Table) 08/13/21 16:37 Blood Culture - Preliminary Blood No Growth after 24 hours 08/13/21 16:41 Blood Culture - Preliminary Blood No Growth after 24 hours 08/13/21 13:49 Urine Culture - Preliminary Urine,Voided Gram Neg Bacilli Assessment and Plan (1) UTI (urinary tract infection) Current Visit: Yes Status: Acute Code(s): N39.0 - URINARY TRACT INFECTION, SITE NOT SPECIFIED SNOMED Code(s): 72807393 Plan: Patient presented to hospital with seizure activity positive UA concerning for symptomatic urinary tract infection patient is currently covered with the meropenem , urine cultures are currently pending and continue supportive care Time with Patient: Less than 30
--- NOTE | 2021-08-16 10:01 | P.PN ---
Subjective Progress Note Date: 08/16/21 H&P Date: 08/13/21 Chief Complaint: Breakthrough seizure 66-year-old female with past medical history significant for developmental delay and seizure disorder presented to the emergency room with a chief complaint of breakthrough seizures 4 the patient had one episode last night and 3 episodes today by her caregiver. Patient is very poor history and most of the history obtained from records and sister at the bedside. Sister stated that most of her seizures were induced by recurrent urinary tract infection patient was noted to have history of recurrent ESBL UTIs. Urinalysis on emergency room came back abnormal. Patient currently awake oriented to herself a baseline as mentioned earlier she is very poor historian. No reported fever or dysuria or frequency.. No nausea vomiting or abdominal pain. Patient denies any shortness of breath or chest pain. Interval history: Patient seen and examined at the bedside. She seems to be comfortable. She denies any chest pain or shortness breath. No reports of acute changes overnight. Objective - Vital Signs Vital signs: Vital Signs Temp 98.0 F 08/16/21 07:21 Pulse 67 08/16/21 07:21 Resp 16 08/16/21 07:21 BP 127/65 08/16/21 07:21 Pulse Ox 98 08/16/21 07:21 Intake & Output 08/15/21 08/16/21 08/16/21 18:59 06:59 18:59 Intake Total 100 Balance 100 Intake: Intake, IV Titration 100 Amount Meropenem 1 gm In Sodium 100 Chloride 0.9% 100 ml @ 33 .3 mls/hr IVPB Q12HR [facility] Rx#:[id number] Other: Voiding Method Toilet # Voids 7 4 1 # Bowel Movements 1 - Exam General: non toxic, no distress, appears at stated age Derm: warm, dry Head: atraumatic, normocephalic, symmetric Eyes: EOMI, no lid lag, anicteric sclera Mouth: no lip lesion, mucus membranes moist Cardiovascular: S1S2 reg, no murmur, positive posterior tibial pulse bilateral, Lungs: CTA bilateral, no rhonchi, no rales , no accessory muscle use Abdominal: soft, nontender to palpation, no guarding, no appreciable organomegaly Ext: no gross muscle atrophy, no edema, no contractures Neuro: CN II-XI grossly intact, no focal neuro deficits Psych: Alert, oriented, appropriate affect - Labs CBC & Chem 7: 08/16/21 04:31 08/16/21 04:31 Labs: Abnormal Lab Results - Last 24 Hours (Table) 08/15/21 08/16/21 08/16/21 Range/Units 05:51 04:31 04:31 RBC 3.47 L 3.53 L (4.10-5.20) X 10*6/uL Hgb 9.5 L 9.7 L (12.0-15.0) g/dL Hct 30.9 L 31.8 L (37.2-46.3) % MCHC 30.7 L 30.5 L (32.0-37.0) g/dL RDW 14.6 H 14.6 H (11.5-14.5) % MPV 9.2 L 8.9 L (9.5-12.2) fL Eosinophils # 0.36 H (0.04-0.35) X 10*3/uL Creatinine 1.7 H (0.6-1.5) mg/dL Est GFR (CKD-EPI)AfAm 35.5 L (60.0-200.0) Est GFR (CKD-EPI)NonAf 30.7 L (60.0-200.0) BUN/Creatinine Ratio 10.81 L (12.00-20.00) Ratio Total Bilirubin <0.15 L (0.30-1.20) mg/dL Albumin 3.2 L (3.8-4.9) g/dL Albumin/Globulin Ratio 1.07 L (1.60-3.17) g/dL Microbiology - Last 24 Hours (Table) 08/13/21 16:37 Blood Culture - Preliminary Blood No Growth after 48 hours 08/13/21 16:41 Blood Culture - Preliminary Blood No Growth after 48 hours 08/13/21 13:49 Urine Culture - Preliminary Urine,Voided Gram Neg Bacilli Assessment and Plan Assessment: #Breakthrough seizures -Patient had total of 3 episodes in the past 18 hours -Per records and family seems to be provoked by recurrent UTIs -Neurology ordered Trileptal, Keppra and Lamictal levels. -Neurology input appreciated #Recurrent ESBL urinary tract infection -urine and blood culture--gram-negative bacilli final sensitivity still pending. -Infectious disease input appreciated -Start meropenem 1 g every 12 hours -IV fluids -Await for final urine culture -Blood culture ordered #Chronic kidney disease disease III -Creatinine at baseline -Avoid Nephrotoxic agents #History of paroxysmal A. fib -Normal sinus rhythm -Patient not on oral anticoagulants -Resume aspirin and metoprolol #Developmental delay #Depression -Resume medications #DVT prophylaxis subcutaneous heparin
[2021-08-16 20:43] VITALS: RESP 16
--- NOTE | 2021-08-16 21:05 | P.PN ---
Subjective Progress Note Date: 08/16/21 Principal diagnosis: Urinary tract infection Patient is a 66 year female a alf resident in this patient with a history of recurrent UTI previous culture positive for ESBL admitted to the hospital with seizure activity positive UA and concern for symptomatic urinary tract infection. On today's evaluation that is 08/16/2021 the patient remains to be afebrile, the patient is breathing comfortably on room air, the patient denies any chest pain shortness of breath or cough no abdominal pain and no diarrhea, no seizure activity has been reported by the nursing staff Objective - Vital Signs Vital signs: Vital Signs Temp 98.3 F 08/16/21 14:00 Pulse 69 08/16/21 14:00 Resp 18 08/16/21 14:00 BP 122/75 08/16/21 14:00 Pulse Ox 96 08/16/21 14:00 Intake & Output 08/15/21 08/16/21 08/16/21 18:59 06:59 18:59 Intake Total 100 Balance 100 Intake: Intake, IV Titration 100 Amount Meropenem 1 gm In Sodium 100 Chloride 0.9% 100 ml @ 33 .3 mls/hr IVPB Q12HR [facility] Rx#:[id number] Other: Voiding Method Toilet # Voids 7 4 1 # Bowel Movements 1 - Exam GENERAL DESCRIPTION: An middle-aged female lying in bed in no distress RESPIRATORY SYSTEM: Unlabored breathing , decreased breath sounds at bases HEART: S1 S2 regular rate and rhythm , ABDOMEN: Soft , no tenderness EXTREMITIES: No edema feet - Labs CBC & Chem 7: 08/16/21 04:31 08/16/21 04:31 Labs: Abnormal Lab Results - Last 24 Hours (Table) 08/16/21 08/16/21 Range/Units 04:31 04:31 RBC 3.53 L (4.10-5.20) X 10*6/uL Hgb 9.7 L (12.0-15.0) g/dL Hct 31.8 L (37.2-46.3) % MCHC 30.5 L (32.0-37.0) g/dL RDW 14.6 H (11.5-14.5) % MPV 8.9 L (9.5-12.2) fL Eosinophils # 0.36 H (0.04-0.35) X 10*3/uL Creatinine 1.7 H (0.6-1.5) mg/dL Est GFR (CKD-EPI)AfAm 35.5 L (60.0-200.0) Est GFR (CKD-EPI)NonAf 30.7 L (60.0-200.0) BUN/Creatinine Ratio 10.81 L (12.00-20.00) Ratio Total Bilirubin <0.15 L (0.30-1.20) mg/dL Albumin 3.2 L (3.8-4.9) g/dL Albumin/Globulin Ratio 1.07 L (1.60-3.17) g/dL Microbiology - Last 24 Hours (Table) 08/13/21 13:49 Urine Culture - Final Urine,Voided Escherichia coli 08/13/21 16:37 Blood Culture - Preliminary Blood No Growth after 48 hours 08/13/21 16:41 Blood Culture - Preliminary Blood No Growth after 48 hours Assessment and Plan (1) UTI (urinary tract infection) Current Visit: Yes Status: Acute Code(s): N39.0 - URINARY TRACT INFECTION, SITE NOT SPECIFIED SNOMED Code(s): 29161084 Plan: Patient presented to hospital with seizure activity positive UA concerning for symptomatic urinary tract infection patient is currently covered with the meropenem , urine cultures has been finalized as ESBL E. coli patient will get a midline and will finish therapy with a seven-day course of IV Invanz 1 g daily Time with Patient: Less than 30
[2021-08-16] MEDS: CLOTRIMAZOLE 1% CREAM 30 GM TUBE TOPICAL SCH (22:14)
[2021-08-17] MEDS: HEPARIN SODIUM,PORCINE/PF 5,000 UNIT/0.5 ML SYRINGE SQ SCH ×2 (07:38→17:15)
[2021-08-17 07:57] VITALS: BP 110/73; PULSE 65; TEMP 97.6
[2021-08-17] MEDS: ZIPRASIDONE 80 MG CAP PO SCH (07:57)
[2021-08-17] MEDS: OXcarbazepine 300 MG TAB PO SCH (07:58)
[2021-08-17] MEDS: lamoTRIgine 100 MG TAB PO SCH ×2 (07:58→15:04)
[2021-08-17] MEDS: DOCUSATE 100 MG CAP PO SCH (07:58)
[2021-08-17] MEDS: levETIRAcetam 250 MG TAB PO SCH (07:58)
[2021-08-17] MEDS: METOPROLOL TARTRATE 12.5 MG TAB PO SCH (07:58)
[2021-08-17] MEDS: SERTRALINE 100 MG TAB PO SCH (07:58)
[2021-08-17] MEDS: ASPIRIN 325 MG TAB PO SCH (07:58)
[2021-08-17] MEDS: FERROUS SULFATE 325 MG TAB PO SCH (07:59)
[2021-08-17] MEDS: MEROPENEM 1 GM in SODIUM CHLORIDE 0.9% 100 ML IVPB SCH (08:35)
--- NOTE | 2021-08-17 10:38 | P.DS ---
Providers Date of admission: 08/13/21 14:39 Expected date of discharge: 08/17/21 Attending physician: Derian Snider MD Consults: 08/13/21 14:40 Consult Physician Routine Consulting Provider: Sidney Goodrich Consult Reason/Comments: history of ESBL, uti Do you want consulting provider notified?: Yes 08/13/21 15:55 Consult Physician Routine Consulting Provider: Sandy Valdez Consult Reason/Comments: breakthru seizure Do you want consulting provider notified?: Yes Primary care physician: Payal Montejo MD Hospital Course: H&P Date: 08/13/21 Chief Complaint: Breakthrough seizure 66-year-old female with past medical history significant for developmental delay and seizure disorder presented to the emergency room with a chief complaint of breakthrough seizures 4 the patient had one episode last night and 3 episodes today by her caregiver. Patient is very poor history and most of the history obtained from records and sister at the bedside. Sister stated that most of her seizures were induced by recurrent urinary tract infection patient was noted to have history of recurrent ESBL UTIs. Urinalysis on emergency room came back abnormal. Patient currently awake oriented to herself a baseline as mentioned earlier she is very poor historian. No reported fever or dysuria or frequency.. No nausea vomiting or abdominal pain. Patient denies any shortness of breath or chest pain. physical examination: General: non toxic, no distress, appears at stated age Derm: warm, dry Head: atraumatic, normocephalic, symmetric Eyes: EOMI, no lid lag, anicteric sclera Mouth: no lip lesion, mucus membranes moist Cardiovascular: S1S2 reg, no murmur, positive posterior tibial pulse bilateral, Lungs: CTA bilateral, no rhonchi, no rales , no accessory muscle use Abdominal: soft, nontender to palpation, no guarding, no appreciable organomegaly Ext: no gross muscle atrophy, no edema, no contractures Neuro: CN II-XI grossly intact, no focal neuro deficits Psych: Alert, oriented, appropriate affect detailed problem list: #Breakthrough seizures -Patient had total of 3 episodes in the past 18 hours -Per records and family seems to be provoked by recurrent UTIs -Neurology ordered Trileptal, Keppra and Lamictal levels. -Neurology input appreciated #Recurrent ESBL urinary tract infection -urine and blood culture-E. coli. -Infectious disease input appreciated -Start meropenem 1 g every 12 hours -IV fluids -blood culture negative to date -ID recommended Invanz 1 g daily for 7 days #Chronic kidney disease disease III -Creatinine at baseline -Avoid Nephrotoxic agents #History of paroxysmal A. fib -Normal sinus rhythm -Patient not on oral anticoagulants -Resume aspirin and metoprolol #Developmental delay #Depression -Resume medications Patient Condition at Discharge: Stable Plan - Discharge Summary Discharge Rx Participant: Yes New Discharge Prescriptions: New Ertapenem [INVanz] 1 gm IVPB Q24H 7 Days #7 each Continue Aspirin 325 mg PO DAILY@0700 Ziprasidone [Geodon] 80 mg PO BID@699,1999 Sertraline [Zoloft] 150 mg PO DAILY@07 lamoTRIgine [LaMICtal] 200 mg PO TID@699,1399,1999 OXcarbazepine [Trileptal] 300 mg PO BID@699,1999 Cranberry Fruit Extract [Cranberry] 500 mg PO BID@699,1999 Docusate [Colace] 100 mg PO DAILY@699 levETIRAcetam [Keppra] 250 mg PO BID@699,1999 Ferrous Sulfate [Iron (65 MG Elemental)] 325 mg PO BID@699,1999 LORazepam 0.5 mg PO DAILY PRN PRN Reason: Seizures Clotrimazole Cream [Lotrimin Cream] 1 applic TOPICAL HS@1999 Metoprolol Tartrate [Lopressor] 12.5 mg PO BID@699,1999 Discharge Medication List Aspirin 325 mg PO DAILY@0700 02/13/14 [History] OXcarbazepine [Trileptal] 300 mg PO BID@07,199902/13/14 [History] Sertraline [Zoloft] 150 mg PO DAILY@0700 02/13/14 [History] Ziprasidone [Geodon] 80 mg PO BID@0700,199902/13/14 [History] lamoTRIgine [LaMICtal] 200 mg PO TID@00,1399,199902/13/14 [History] Cranberry Fruit Extract [Cranberry] 500 mg PO BID@07,199901/19/18 [History] Docusate [Colace] 100 mg PO DAILY@0700 11/26/18 [History] Metoprolol Tartrate [Lopressor] 12.5 mg PO BID@699,199912/12/20 [History] levETIRAcetam [Keppra] 250 mg PO BID@699,199912/12/20 [History] Ferrous Sulfate [Iron (65 MG Elemental)] 325 mg PO BID@699,199903/13/21 [History] LORazepam 0.5 mg PO DAILY PRN 03/13/21 [History] Clotrimazole Cream [Lotrimin Cream] 1 applic TOPICAL HS@199908/13/21 [History] Ertapenem [INVanz] 1 gm IVPB Q24H 7 Days #7 each 08/17/21 [Rx] Follow up Appointment(s)/Referral(s): Payal Montejo MD [Primary Care Provider] - 1-2 days Patient Instructions/Handouts: Seizure/Epilepsy Discharge Instructions & Follow-Up Discharge Disposition: HOME WITH HOME HEALTH SERVICES
[2021-08-17] MEDS ORDERED: ERTAPENEM 1 GM in SODIUM CHLORIDE 0.9% 50 ML IVPB SCH (14:00)
== END 2021-08-17 17:50 | disposition home health service (06) | DRG 690 ==
LOC: EC 12:09 → 4SSUR 14:39
PROVIDERS: ADMIT Hospitalist; ATTEND Hospitalist
PROC: 05HF33Z Insertion of Infusion Device into Left Cephalic Vein, Percutaneous Approach (ICD-10-PCS; principal; 2021-08-17 12:05)
DX: N39.0 Urinary tract infection, site not specified (principal); Z16.12 Extended spectrum beta lactamase (ESBL) resistance; G40.909 Epilepsy, unspecified, not intractable, without status epilepticus; F25.9 Schizoaffective disorder, unspecified; F32.A Depression, unspecified; F41.9 Anxiety disorder, unspecified; F71 Moderate intellectual disabilities; I48.0 Paroxysmal atrial fibrillation; Z20.822 Contact with and (suspected) exposure to COVID-19; I12.9 Hypertensive chronic kidney disease with stage 1 through stage 4 chronic kidney disease, or unspecified chronic kidney disease; Z79.82 Long term (current) use of aspirin; Z79.899 Other long term (current) drug therapy; Z80.7 Family history of other malignant neoplasms of lymphoid, hematopoietic and related tissues; Z82.49 Family history of ischemic heart disease and other diseases of the circulatory system; Z87.440 Personal history of urinary (tract) infections; N18.30 Chronic kidney disease, stage 3 unspecified; B96.20 Unspecified Escherichia coli [E. coli] as the cause of diseases classified elsewhere
CPT/HCPCS: 36410; 36415; 71045; 76937; 80053; 80175; 80177; 80183; 81001; 83735; 85025; 87040; 87077; 87086; 87186; 87635; 93005; 99285

== ENCOUNTER 2021-10-21 09:58 | Emergency (ER) | payer MEDICARE, OTHER ==
[2021-10-21 10:08] VITALS: TEMP 98.5
--- NOTE | 2021-10-21 10:24 | ED ---
General Adult HPI - General Chief complaint: GI Bleed Stated complaint: GI bleed Time Seen by Provider: 10/21/21 10:00 Source: patient, EMS, RN notes reviewed, old records reviewed Mode of arrival: EMS Limitations: altered mental status - History of Present Illness Initial comments: This is a 66-year-old female who presents emergency Department by EMS. According to the patient she was taking a bath she noticed bright red blood in the bath water and she said she was having blood per rectum. According to EMS that is what they thought as well however the sister who takes care of this patient thought it might be vaginal bleeding. Patient is cognitively delayed so her history is not that great. Patient denies any abdominal pain. Patient denies any chest pain. Patient denies any shortness of breath. Patient states she is not on any blood thinners. - Related Data Home Medications Medication Instructions Recorded Confirmed Aspirin 325 mg PO DAILY@0700 02/13/14 10/21/21 OXcarbazepine [Trileptal] 300 mg PO BID@0700,199902/13/14 10/21/21 Sertraline [Zoloft] 150 mg PO DAILY@00 02/13/14 10/21/21 Ziprasidone [Geodon] 80 mg PO BID@0700,199902/13/14 10/21/21 lamoTRIgine [LaMICtal] 200 mg PO TID@0700,1399,199902/13/14 10/21/21 Cranberry Fruit Extract [Cranberry] 500 mg PO BID@0700,199901/19/18 10/21/21 Docusate [Colace] 100 mg PO DAILY@0700 11/26/18 10/21/21 Metoprolol Tartrate [Lopressor] 12.5 mg PO BID@0700,199912/12/20 10/21/21 Ferrous Sulfate [Iron (65 MG 325 mg PO BID@0700,199903/13/21 10/21/21 Elemental)] Clotrimazole Cream [Lotrimin Cream] 1 applic TOPICAL BID@07,199908/13/21 10/21/21 Ascorbic Acid [Vitamin C] 1,000 mg PO DAILY@00 10/06/21 10/21/21 Cholecalciferol [Vitamin D3 (25 25 mcg PO DAILY@69910/06/21 10/21/21 Mcg = 1000 Iu)] Midazolam [Nayzilam] 1 spray NASAL DIRECTED PRN 10/06/21 10/21/21 levETIRAcetam [Keppra] 500 mg PO BID@0700,2000 10/21/21 10/21/21 Previous Rx's Medication Instructions Recorded Hydrocortisone Suppository 25 mg RECTAL BID #10 suppositor 10/21/21 [Anusol-Hc] Allergies Allergy/AdvReac Type Severity Reaction Status Date / Time No Known Allergies Allergy Verified 10/21/21 10:57 Review of Systems ROS Statement: Those systems with pertinent positive or pertinent negative responses have been documented in the HPI. ROS Other: All systems not noted in ROS Statement are negative. Past Medical History Past Medical History: Atrial Fibrillation, Hypertension, Pneumonia, Seizure Disorder Additional Past Medical History / Comment(s): Vertigo, paroxysmal atrial fibrillation, moderate intellectual disability, SEPTEMBER 2016 UTI AND BACTEREMIA History of Any Multi-Drug Resistant Organisms: ESBL, MRSA Date of last positivie culture/infection: 10/06/21 E.coli ESBL; 06/21/18 MRSA MDRO Source:: Urine-ESBL; Groin-MRSA Past Surgical History: No Surgical Hx Reported Additional Past Surgical History / Comment(s): hx picc line-since removed Past Anesthesia/Blood Transfusion Reactions: No Reported Reaction Additional Past Anesthesia/Blood Transfusion Reaction / Comment(s): ambulatory care says not that she knows of Past Psychological History: Anxiety, Schizoaffective Disorder Smoking Status: Never smoker Past Alcohol Use History: None Reported Past Drug Use History: None Reported - Past Family History Father Family Medical History: Cancer Additional Family Medical History / Comment(s): [place] lymphoma Mother Family Medical History: AFIB, Cancer, Congestive Heart Failure (CHF) Additional Family Medical History / Comment(s): lymphocytic lymphoma General Exam - General Exam Comments Initial Comments: GENERAL: Patient is well-developed and well-nourished. Patient is nontoxic and well- hydrated and is in no acute distress. ENT: Neck is soft and supple. No significant lymphadenopathy is noted. Oropharynx is clear. Moist mucous membranes. Neck has full range of motion without eliciting any pain. EYES: The sclera were anicteric and conjunctiva were pink and moist. Extraocular movements were intact and pupils were equal round and reactive to light. Eyelids were unremarkable. PULMONARY: Unlabored respirations. Good breath sounds bilaterally. No audible rales rhonchi or wheezing was noted. CARDIOVASCULAR: There is a regular rate and rhythm without any murmurs gallops or rubs. ABDOMEN: Soft and nontender with normal bowel sounds. SKIN: Skin is clear with no lesions or rashes and otherwise unremarkable. NEUROLOGIC: Patient is alert and oriented 2. Cranial nerves II through XII are grossly intact. Motor and sensory are also intact. Normal speech, volume and content. Symmetrical smile. MUSCULOSKELETAL: Normal extremities with adequate strength and full range of motion. No lower extremity swelling or edema. No calf tenderness. LYMPHATICS: No significant lymphadenopathy is noted PSYCHIATRIC: Normal psychiatric evaluation. Limitations: altered mental status Course Vital Signs 10/21/21 10:00 Temperature 98.5 F Pulse Rate 69 Respiratory 16 Rate Blood Pressure 132/80 O2 Sat by Pulse 98 Oximetry Medical Decision Making - Medical Decision Making I did a rectal exam on the patient she had a bleeding hemorrhoid that was mildly tender. There did not appear to be any thrombosed hemorrhoids. - Lab Data Result diagrams: 10/21/21 10:46 10/21/21 10:46 Lab Results 10/21/21 10/21/21 10/21/21 Range/Units 10:46 10:46 10:46 WBC 6.5 (3.8-10.6) k/uL RBC 3.97 (3.80-5.40) m/uL Hgb 11.4 (11.4-16.0) gm/dL Hct 36.1 (34.0-46.0) % MCV 91.0 (80.0-100.0) fL MCH 28.8 (25.0-35.0) pg MCHC 31.7 (31.0-37.0) g/dL RDW 14.1 (11.5-15.5) % Plt Count 300 (150-450) k/uL MPV 6.6 Neutrophils % 63 % Lymphocytes % 23 % Monocytes % 6 % Eosinophils % 2 % Basophils % 2 % Neutrophils # 4.1 (1.3-7.7) k/uL Lymphocytes # 1.5 (1.0-4.8) k/uL Monocytes # 0.4 (0-1.0) k/uL Eosinophils # 0.2 (0-0.7) k/uL Basophils # 0.1 (0-0.2) k/uL PT 10.8 (9.0-12.0) sec INR 1.0 (<1.2) APTT 20.7 L (22.0-30.0) sec Sodium 140 (137-145) mmol/L Potassium 4.7 (3.5-5.1) mmol/L Chloride 110 H (98-107) mmol/L Carbon Dioxide 23 (22-30) mmol/L Anion Gap 7 mmol/L BUN 35 H (7-17) mg/dL Creatinine 1.74 H (0.52-1.04) mg/dL Est GFR (CKD-EPI)AfAm 35 (>60 ml/min/1.73 sqM) Est GFR (CKD-EPI)NonAf 31 (>60 ml/min/1.73 sqM) Glucose 75 (74-99) mg/dL Calcium 9.7 (8.4-10.2) mg/dL Magnesium 2.1 (1.6-2.3) mg/dL Total Bilirubin 0.3 (0.2-1.3) mg/dL AST 20 (14-36) U/L ALT 13 (4-34) U/L Alkaline Phosphatase 132 H (38-126) U/L Troponin I (0.000-0.034) ng/mL Total Protein 7.1 (6.3-8.2) g/dL Albumin 3.4 L (3.5-5.0) g/dL 10/21/21 Range/Units 10:46 WBC (3.8-10.6) k/uL RBC (3.80-5.40) m/uL Hgb (11.4-16.0) gm/dL Hct (34.0-46.0) % MCV (80.0-100.0) fL MCH (25.0-35.0) pg MCHC (31.0-37.0) g/dL RDW (11.5-15.5) % Plt Count (150-450) k/uL MPV Neutrophils % % Lymphocytes % % Monocytes % % Eosinophils % % Basophils % % Neutrophils # (1.3-7.7) k/uL Lymphocytes # (1.0-4.8) k/uL Monocytes # (0-1.0) k/uL Eosinophils # (0-0.7) k/uL Basophils # (0-0.2) k/uL PT (9.0-12.0) sec INR (<1.2) APTT (22.0-30.0) sec Sodium (137-145) mmol/L Potassium (3.5-5.1) mmol/L Chloride (98-107) mmol/L Carbon Dioxide (22-30) mmol/L Anion Gap mmol/L BUN (7-17) mg/dL Creatinine (0.52-1.04) mg/dL Est GFR (CKD-EPI)AfAm (>60 ml/min/1.73 sqM) Est GFR (CKD-EPI)NonAf (>60 ml/min/1.73 sqM) Glucose (74-99) mg/dL Calcium (8.4-10.2) mg/dL Magnesium (1.6-2.3) mg/dL Total Bilirubin (0.2-1.3) mg/dL AST (14-36) U/L ALT (4-34) U/L Alkaline Phosphatase (38-126) U/L Troponin I <0.012 (0.000-0.034) ng/mL Total Protein (6.3-8.2) g/dL Albumin (3.5-5.0) g/dL Disposition Clinical Impression: External hemorrhoid, bleeding Disposition: HOME SELF-CARE Condition: Good Instructions (If sedation given, give patient instructions): Hemorrhoids (ED) Additional Instructions: Patient should use sitz baths at least twice a day. Patient should use hemorrhoid cream and patient should take Benefiber twice a day to make her stools soft. Prescriptions: Hydrocortisone Suppository [Anusol-Hc] 25 mg RECTAL BID #10 suppositor Is patient prescribed a controlled substance at d/c from ED?: No Referrals: Benedicto Giron MD [Primary Care Provider] - 1-2 days Time of Disposition: 12:10
[2021-10-21 10:56] LABS: Basophils # (A) 0.1 k/uL (0-0.2); Basophils % (A) 2 %; Eosinophils # (A) 0.2 k/uL (0-0.7); Eosinophils % (A) 2 %; HCT 36.1 % (34.0-46.0); HGB 11.4 gm/dL (11.4-16.0); Lymphocytes # (A) 1.5 k/uL (1.0-4.8); Lymphocytes % (A) 23 %; MCH 28.8 pg (25.0-35.0); MCHC 31.7 g/dL (31.0-37.0); Mean Platelet Volume 6.6; Monocytes # (A) 0.4 k/uL (0-1.0); Monocytes % (A) 6 %; Neutrophils # (A) 4.1 k/uL (1.3-7.7); Neutrophils % (A) 63 %; Platelet Count 300 k/uL (150-450); RBC 3.97 m/uL (3.80-5.40); RDW 14.1 % (11.5-15.5); WBC 6.5 k/uL (3.8-10.6)
[2021-10-21 11:15] LABS: Albumin 3.4 g/dL (3.5-5.0); Calcium 9.7 mg/dL (8.4-10.2); Magnesium 2.1 mg/dL (1.6-2.3); Potassium 4.7 mmol/L (3.5-5.1); Total Bilirubin 0.3 mg/dL (0.2-1.3); Total Protein 7.1 g/dL (6.3-8.2)
[2021-10-21 11:17] LABS: Prothrombin Time 10.8 sec (9.0-12.0)
[2021-10-21 11:29] LABS: Partial Thromboplastin Time 20.7 sec (22.0-30.0)
[2021-10-21 12:36] VITALS: BP 130/81; PULSE 61; RESP 18
== END 2021-10-21 12:55 | disposition home or self-care (01) ==
LOC: EC 09:58
DX: K64.4 Residual hemorrhoidal skin tags (principal); I10 Essential (primary) hypertension; G40.909 Epilepsy, unspecified, not intractable, without status epilepticus; F41.9 Anxiety disorder, unspecified; F25.9 Schizoaffective disorder, unspecified; I48.0 Paroxysmal atrial fibrillation; Z79.82 Long term (current) use of aspirin; Z79.899 Other long term (current) drug therapy
CPT/HCPCS: 36415; 80053; 83735; 84484; 85025; 85610; 85730; 86850; 86900; 86901; 99283

== ENCOUNTER → 2021-11-09 | Outpatient (CLI) | payer MEDICARE, OTHER ==
--- NOTE | 2021-11-09 15:43 | NM ---
EXAMINATION TYPE: NM parathyroid w/spect DATE OF EXAM: 11/09/2021 COMPARISON: NONE HISTORY: Hypercalcemia. TECHNIQUE: Following administration of 24.1 mCi Tc99m Sestamibi. Anterior projection images of the neck and ches t were obtained 10 minutes and 3 hours post injection. SPECT images of the neck and chest were obtai eliud and reconstructed in three axes. FINDINGS: Thyroid tracer washout: Delayed images demonstrate complete tracer washout from the thyroid. Parathyroid uptake: None. The two-hour delayed images do not demonstrate any focal abnormal persisten t uptake in the region of the parathyroid glands to suggest parathyroid adenoma. Normal uptake: There is physiological tracer uptake in the salivary glands. IMPRESSION: No evidence for suspicious mediastinal uptake to suggest mediastinal parathyroid adenoma
== END | disposition home or self-care (01) ==
LOC: RADNMMAIN 10:50
PROVIDERS: ATTEND Internal Medicine Nephrology
DX: E83.52 Hypercalcemia (principal)
CPT/HCPCS: 78071; A9500

== ENCOUNTER 2021-12-12 19:20 | Observation (INO) | payer MEDICARE, OTHER ==
--- NOTE | 2021-12-12 19:43 | ED ---
Seizure HPI - General Chief Complaint: Seizure Stated Complaint: Seizure Time Seen by Provider: 12/12/21 19:30 Source: EMS Mode of arrival: EMS Limitations: altered mental status - History of Present Illness Initial Comments: Valeria is a 66-year-old female brought to the ER today by EMS after a seizure. Patient has a history of seizure disorder, typically has seizures when she is sick or has an infection, patient has a history of ESBL urinary tract infections. Caregiver at bedside states the patient is not acting like herself at all. - Related Data Home Medications Medication Instructions Recorded Confirmed Aspirin 325 mg PO DAILY@0700 02/13/14 10/21/21 OXcarbazepine [Trileptal] 300 mg PO BID@0700,199902/13/14 10/21/21 Sertraline [Zoloft] 150 mg PO DAILY@0700 02/13/14 10/21/21 Ziprasidone [Geodon] 80 mg PO BID@0700,199902/13/14 10/21/21 lamoTRIgine [LaMICtal] 200 mg PO TID@0700,1400,199902/13/14 10/21/21 Cranberry Fruit Extract [Cranberry] 500 mg PO BID@0700,199901/19/18 10/21/21 Docusate [Colace] 100 mg PO DAILY@0700 11/26/18 10/21/21 Metoprolol Tartrate [Lopressor] 12.5 mg PO BID@0700,199912/12/20 10/21/21 Ferrous Sulfate [Iron (65 MG 325 mg PO BID@0700,199903/13/21 10/21/21 Elemental)] Clotrimazole Cream [Lotrimin Cream] 1 applic TOPICAL BID@0700,199908/13/21 Ascorbic Acid [Vitamin C] 1,000 mg PO DAILY@69910/06/21 10/21/21 Cholecalciferol [Vitamin D3 (25 25 mcg PO DAILY@69910/06/21 10/21/21 Mcg = 1000 Iu)] Midazolam [Nayzilam] 1 spray NASAL DIRECTED PRN 10/06/21 10/21/21 levETIRAcetam [Keppra] 500 mg PO BID@0700,199910/21/21 10/21/21 Previous Rx's Medication Instructions Recorded Hydrocortisone Suppository 25 mg RECTAL BID #10 suppositor 10/21/21 [Anusol-Hc] Allergies Allergy/AdvReac Type Severity Reaction Status Date / Time No Known Allergies Allergy Verified 10/21/21 10:57 Review of Systems ROS Statement: Those systems with pertinent positive or pertinent negative responses have been documented in the HPI. ROS Other: All systems not noted in ROS Statement are negative. Past Medical History Past Medical History: Atrial Fibrillation, Hypertension, Pneumonia, Seizure Disorder Additional Past Medical History / Comment(s): Vertigo, paroxysmal atrial fibrillation, moderate intellectual disability, SEPTEMBER 2016 UTI AND BACTEREMIA History of Any Multi-Drug Resistant Organisms: ESBL, MRSA Date of last positivie culture/infection: 10/06/21 E.coli ESBL; 06/21/18 MRSA MDRO Source:: Urine-ESBL; Groin-MRSA Past Surgical History: No Surgical Hx Reported Additional Past Surgical History / Comment(s): hx picc line-since removed Past Anesthesia/Blood Transfusion Reactions: No Reported Reaction Additional Past Anesthesia/Blood Transfusion Reaction / Comment(s): tire care manager says not that she knows of Past Psychological History: Anxiety, Schizoaffective Disorder Smoking Status: Never smoker Past Alcohol Use History: None Reported Past Drug Use History: None Reported - Past Family History Father Family Medical History: Cancer Additional Family Medical History / Comment(s): [place] lymphoma Mother Family Medical History: AFIB, Cancer, Congestive Heart Failure (CHF) Additional Family Medical History / Comment(s): lymphocytic lymphoma General Exam - General Exam Comments Initial Comments: Physical Exam GENERAL: Patient is well-developed and well-nourished. HENT: Normocephalic, Atraumatic EYES: PERRL, EOMI PULMONARY: Unlabored respirations. CARDIOVASCULAR: RRR Warm and well perfused extremities ABDOMEN: Non-distended SKIN: No rashes or bruising : Deferred NEUROLOGIC: Alert and oriented to self only Normal speech MUSCULOSKELETAL: Moving all extremities with no apparent injury PSYCHIATRIC: Unable to assess due to confusion Limitations: altered mental status Course Vital Signs 12/12/21 12/12/21 19:30 20:15 Temperature 99.9 F H Pulse Rate 104 H 92 Respiratory 20 17 Rate Blood Pressure 153/98 149/79 O2 Sat by Pulse 94 L 98 Oximetry Medical Decision Making - Medical Decision Making Patient was seen and evaluated, labs were obtained, urinalysis is consistent with the UTI, patient is leukocytosis Patient was treated with gentamicin due to history of ESBL IV fluids Patient will be admitted the hospital for generalized weakness, altered mental status UTI - Lab Data Result diagrams: 12/12/21 20:09 12/12/21 20:09 Lab Results 12/12/21 12/12/21 12/12/21 Range/Units 20:09 20:09 20:09 WBC 15.7 H (3.8-10.6) k/uL RBC 3.65 L (3.80-5.40) m/uL Hgb 10.2 L (11.4-16.0) gm/dL Hct 33.1 L (34.0-46.0) % MCV 90.6 (80.0-100.0) fL MCH 27.9 (25.0-35.0) pg MCHC 30.8 L (31.0-37.0) g/dL RDW 13.8 (11.5-15.5) % Plt Count 248 (150-450) k/uL MPV 6.6 Neutrophils % 89 % Lymphocytes % 3 % Monocytes % 6 % Eosinophils % 0 % Basophils % 0 % Neutrophils # 14.0 H (1.3-7.7) k/uL Lymphocytes # 0.5 L (1.0-4.8) k/uL Monocytes # 0.9 (0-1.0) k/uL Eosinophils # 0.1 (0-0.7) k/uL Basophils # 0.0 (0-0.2) k/uL PT 10.2 (9.0-12.0) sec INR 0.9 (<1.2) APTT 23.8 (22.0-30.0) sec Sodium 135 L (137-145) mmol/L Potassium 4.9 (3.5-5.1) mmol/L Chloride 104 (98-107) mmol/L Carbon Dioxide 23 (22-30) mmol/L Anion Gap 8 mmol/L BUN 35 H (7-17) mg/dL Creatinine 1.71 H (0.52-1.04) mg/dL Est GFR (CKD-EPI)AfAm 36 (>60 ml/min/1.73 sqM) Est GFR (CKD-EPI)NonAf 31 (>60 ml/min/1.73 sqM) Glucose 115 H (74-99) mg/dL Plasma Lactic Acid [place] (0.7-2.0) mmol/L Calcium 9.2 (8.4-10.2) mg/dL Total Bilirubin 0.2 (0.2-1.3) mg/dL AST 18 (14-36) U/L ALT 11 (4-34) U/L Alkaline Phosphatase 164 H (38-126) U/L Total Protein 6.7 (6.3-8.2) g/dL Albumin 3.5 (3.5-5.0) g/dL Urine Color Urine Appearance (Clear) Urine pH (5.0-8.0) Ur Specific [place] (1.001-1.035) Urine Protein (Negative) Urine Glucose (UA) (Negative) Urine Ketones (Negative) Urine Blood (Negative) Urine Nitrite (Negative) Urine Bilirubin (Negative) Urine Urobilinogen (<2.0) mg/dL Ur Leukocyte Esterase (Negative) Urine RBC (0-5) /hpf Urine WBC (0-5) /hpf Urine WBC Clumps (None) /hpf Urine Bacteria (None) /hpf Urine Mucus (None) /hpf 12/12/21 12/12/21 Range/Units 20:09 21:20 WBC (3.8-10.6) k/uL RBC (3.80-5.40) m/uL Hgb (11.4-16.0) gm/dL Hct (34.0-46.0) % MCV (80.0-100.0) fL MCH (25.0-35.0) pg MCHC (31.0-37.0) g/dL RDW (11.5-15.5) % Plt Count (150-450) k/uL MPV Neutrophils % % Lymphocytes % % Monocytes % % Eosinophils % % Basophils % % Neutrophils # (1.3-7.7) k/uL Lymphocytes # (1.0-4.8) k/uL Monocytes # (0-1.0) k/uL Eosinophils # (0-0.7) k/uL Basophils # (0-0.2) k/uL PT (9.0-12.0) sec INR (<1.2) APTT (22.0-30.0) sec Sodium (137-145) mmol/L Potassium (3.5-5.1) mmol/L Chloride (98-107) mmol/L Carbon Dioxide (22-30) mmol/L Anion Gap mmol/L BUN (7-17) mg/dL Creatinine (0.52-1.04) mg/dL Est GFR (CKD-EPI)AfAm (>60 ml/min/1.73 sqM) Est GFR (CKD-EPI)NonAf (>60 ml/min/1.73 sqM) Glucose (74-99) mg/dL Plasma Lactic Acid [place] 0.7 (0.7-2.0) mmol/L Calcium (8.4-10.2) mg/dL Total Bilirubin (0.2-1.3) mg/dL AST (14-36) U/L ALT (4-34) U/L Alkaline Phosphatase (38-126) U/L Total Protein (6.3-8.2) g/dL Albumin (3.5-5.0) g/dL Urine Color Light Yellow Urine Appearance Cloudy H (Clear) Urine pH 6.5 (5.0-8.0) Ur Specific [place] 1.007 (1.001-1.035) Urine Protein Negative (Negative) Urine Glucose (UA) Negative (Negative) Urine Ketones Negative (Negative) Urine Blood Moderate H (Negative) Urine Nitrite Positive H (Negative) Urine Bilirubin Negative (Negative) Urine Urobilinogen <2.0 (<2.0) mg/dL Ur Leukocyte Esterase Large H (Negative) Urine RBC 16 H (0-5) /hpf Urine WBC 47 H (0-5) /hpf Urine WBC Clumps Occasional H (None) /hpf Urine Bacteria Moderate H (None) /hpf Urine Mucus Rare H (None) /hpf - EKG Data -: EKG Interpreted by Me EKG Comments: EKG was obtained due to complaint of seizure EKG was obtained at 2019 rate is 92 rhythm is sinus some T-wave inversions are noted no ST elevations no evidence of acute infarction. Disposition Clinical Impression: Generalized seizure, History of developmental delay, Recurrent UTI Disposition: ADMITTED IP TO THIS HOSP Condition: Serious Instructions (If sedation given, give patient instructions): Seizure/Epilepsy Discharge Instructions & Follow-Up Is patient prescribed a controlled substance at d/c from ED?: No Referrals: Benedicto Giron MD [Primary Care Provider] - 1-2 days
[2021-12-12] MEDS: SODIUM CHLORIDE 0.9% 500 ML 500 ML IV SCH ×2 (20:14→22:03)
[2021-12-12 21:00] LABS: Basophils % (A) 0 %; Eosinophils # (A) 0.1 k/uL (0-0.7); Eosinophils % (A) 0 %; HCT 33.1 % (34.0-46.0); HGB 10.2 gm/dL (11.4-16.0); Lymphocytes # (A) 0.5 k/uL (1.0-4.8); Lymphocytes % (A) 3 %; MCH 27.9 pg (25.0-35.0); MCHC 30.8 g/dL (31.0-37.0); MCV 90.6 fL (80.0-100.0); Mean Platelet Volume 6.6; Monocytes # (A) 0.9 k/uL (0-1.0); Monocytes % (A) 6 %; Neutrophils % (A) 89 %; Platelet Count 248 k/uL (150-450); RBC 3.65 m/uL (3.80-5.40); RDW 13.8 % (11.5-15.5); WBC 15.7 k/uL (3.8-10.6)
[2021-12-12 21:23] LABS: INR 0.9 (<1.2); Partial Thromboplastin Time 23.8 sec (22.0-30.0); Prothrombin Time 10.2 sec (9.0-12.0)
[2021-12-12 21:26] LABS: Albumin 3.5 g/dL (3.5-5.0); Calcium 9.2 mg/dL (8.4-10.2); Potassium 4.9 mmol/L (3.5-5.1); Total Bilirubin 0.2 mg/dL (0.2-1.3); Total Protein 6.7 g/dL (6.3-8.2)
[2021-12-12 22:14] LABS: Appearance,Urine Cloudy (Clear); Bacteria,Urine Moderate /hpf; Bilirubin,Urine Negative (Negative); Blood,Urine Moderate (Negative); Color,Urine Light Yellow; Glucose,Urine (UA) Negative (Negative); Ketones,Urine Negative (Negative); Leukocyte Esterase,Urine Large (Negative); Mucus,Urine Rare /hpf; Nitrite,Urine Positive (Negative); PH, Urine 6.5 (5.0-8.0); Protein,Urine Negative (Negative); RBC,Urine 16 /hpf (0-5); Specific Gravity,Urine 1.007 (1.001-1.035); Urobilinogen,Urine <2.0 mg/dL (<2.0); WBC,Urine 47 /hpf (0-5)
[2021-12-12] MEDS ORDERED: cefTRIAXone IN SWFI 1,000 MG/10 ML SYRINGE IVP STA (22:56)
[2021-12-12] MEDS ORDERED: NALOXONE 0.4 MG/ML 1 ML VIAL IV PRN (22:56)
[2021-12-13] MEDS ORDERED: SODIUM CHLORIDE 0.9% IVPB SCH ×2
[2021-12-13] MEDS ORDERED: GENTAMICIN IVPB SCH ×2
[2021-12-13 12:01] LABS: African American GFR (CKD) 41 (>60 ml/min/1.73 sqM); Anion Gap 10 mmol/L; Blood Urea Nitrogen 35 mg/dL (7-17); Calcium 9.3 mg/dL (8.4-10.2); Carbon Dioxide 21 mmol/L (22-30); Chloride 107 mmol/L (98-107); Glucose 101 mg/dL (74-99); Non-African American GFR(CKD) 35 (>60 ml/min/1.73 sqM); Potassium 5.1 mmol/L (3.5-5.1); Sodium 138 mmol/L (137-145)
[2021-12-13 12:17] LABS: Basophils % (A) 0 %; Eosinophils % (A) 0 %; HCT 31.2 % (34.0-46.0); HGB 9.8 gm/dL (11.4-16.0); Lymphocytes % (A) 9 %; MCH 28.3 pg (25.0-35.0); MCHC 31.4 g/dL (31.0-37.0); Mean Platelet Volume 6.7; Monocytes # (A) 0.5 k/uL (0-1.0); Monocytes % (A) 4 %; Neutrophils # (A) 9.4 k/uL (1.3-7.7); Neutrophils % (A) 84 %; Platelet Count 237 k/uL (150-450); RBC 3.46 m/uL (3.80-5.40); RDW 13.8 % (11.5-15.5); WBC 11.2 k/uL (3.8-10.6)
[2021-12-13 12:28] LABS: Gentamicin,Random 16.8 ug/mL
--- NOTE | 2021-12-13 14:08 | P.CNNES ---
History of Present Illness Consult date: 12/13/21 Requesting physician: Jose Liu Reason for Consult: seizures History of Present Illness: This is a 66-year-old woman with history of seizures, developmental delay, atrial fibrillation, hypertension, urinary tract infection who presented to the emergency department via EMS after seizure at her nursing facility. History was obtained from medical record. It seems the patient had her typical seizures and per the report when the patient gets sick or underlying infection she gets her typical seizure. The caregiver notified the ED team that the patient was not acting herself. Per the patient's nurse, patient is back to baseline. Patient is on Keppra 500 mg 1 tablet twice a day for seizures as well as she is on Lamictal 200 mg 1 tablet 3 times a day and is on Trileptal 300mg bid. Patient was seen by Dr. Valdez on 10/07/2021 for breakthrough seizure in our facility. Please refer to his note for further details. Some of the workup in our facility consisted of: Initial vital signs his blood pressure 153/98, heart rate 104, temperature of 99.9 Fahrenheit axillary, respiratory of 20 and pulse ox of 94 L at room air. Initial white blood cells 50.7 and it's predominantly neutrophilic blood blood cells trending down. Initial creatinine is 1.7 1 repeat is 1.54 and BUN 35. AST and ALT is within normal limits Urinalysis seems suggestive to be ureter tract infection. Gentamicin level is toxic level. Review of Systems Review of system: The 12 point system was reviewed and apparent positive and negative per HPI. Past Medical History Past Medical History: Atrial Fibrillation, Hypertension, Pneumonia, Seizure Dis order Additional Past Medical History / Comment(s): Vertigo, paroxysmal atrial fibrillation, moderate intellectual disability, SEPTEMBER 2016 UTI AND BACTEREMIA History of Any Multi-Drug Resistant Organisms: ESBL, MRSA Date of last positivie culture/infection: 10/06/21 E.coli ESBL; 06/21/18 MRSA MDRO Source:: Urine-ESBL; Groin-MRSA Past Surgical History: No Surgical Hx Reported Additional Past Surgical History / Comment(s): hx picc line-since removed Past Anesthesia/Blood Transfusion Reactions: No Reported Reaction Additional Past Anesthesia/Blood Transfusion Reaction / Comment(s): senior caregiver says not that she knows of Past Psychological History: Anxiety, Schizoaffective Disorder Additional Psychological History / Comment(s): OCD, auditory hallucinations, needs reassurance that she is ok. depressive type schizoaffective. Single. Has a sister as her guardian. Does have 24-hour care in her apartment. No animals in the apartment. No travel history Smoking Status: Never smoker Past Alcohol Use History: None Reported Additional Past Alcohol Use History / Comment(s): Patient is a lifelong nonsmoker, no illicit drug use, alcohol use. Patient lives in her own apartment at [facility] has a room mate and 24-hour care. There are no pets in the home. No recent travel.has walker, rollator, cane showr chair if needed Past Drug Use History: None Reported - Past Family History Father Family Medical History: Cancer Additional Family Medical History / Comment(s): [place] lymphoma Mother Family Medical History: AFIB, Cancer, Congestive Heart Failure (CHF) Additional Family Medical History / Comment(s): lymphocytic lymphoma Medications and Allergies Home Medications Medication Instructions Recorded Confirmed Type Aspirin 325 mg PO DAILY@0700 02/13/14 12/13/21 History OXcarbazepine [Trileptal] 300 mg PO BID@0700,199902/13/14 12/13/21 History Sertraline [Zoloft] 150 mg PO DAILY@0700 02/13/14 12/13/21 History Ziprasidone [Geodon] 80 mg PO BID@0700,199902/13/14 12/13/21 History lamoTRIgine [LaMICtal] 200 mg PO TID@0700,1400,199902/13/14 12/13/21 History Cranberry Fruit Extract [Cranberry] 500 mg PO BID@0700,199901/19/18 12/13/21 History Docusate [Colace] 100 mg PO DAILY@0700 11/26/18 12/13/21 History Metoprolol Tartrate [Lopressor] 12.5 mg PO BID@0700,199912/12/20 12/13/21 History Ferrous Sulfate [Iron (65 MG 325 mg PO BID@0700,199903/13/21 12/13/21 History Elemental)] levETIRAcetam [Keppra] 500 mg PO BID@0700,199910/21/21 12/13/21 History levETIRAcetam [Keppra] 250 mg PO DIRECTED 12/13/21 12/13/21 History Allergies Allergy/AdvReac Type Severity Reaction Status Date / Time No Known Allergies Allergy Verified 10/21/21 10:57 Physical Examination - Vital Signs Vital Signs: Vital Signs Temp Pulse Pulse Resp BP BP Pulse Ox 12/13/21 08:00 88 18 12/13/21 07:00 98.2 F 88 18 139/81 96 12/13/21 01:06 97.9 F 80 18 120/68 98 12/13/21 00:00 78 16 109/77 98 12/12/21 20:15 92 17 149/79 98 12/12/21 19:30 99.9 F H 104 H 20 153/98 94 L Intake and Output 12/12/21 12/13/21 12/13/21 22:59 06:59 14:59 Intake Total 120 Balance 120 Intake: Oral 120 Other: Weight 150 kg 150 kg GENERAL: The patient is lying in bed and is not in acute distress. She seems somewhat restless. CHEST: The heart rate is regular rate rhythm. No murmurs to auscultation. LUNG: Clear to auscultation bilaterally no wheezing noted throughout. Not labored breathing. ABDOMEN/GI: Bowel sounds present in all 4 quadrants. No tenderness to palpation throughout. NEUROLOGICAL: Higher mental function: The patient is awake, alert, oriented to self, place. Did not respond to time. Patient is following simple commands. There is mild delay in response. No aphasia and no neglect. Cranial nerves: The pupils are round, equal and reactive to light and accommodation. Visual carlson are full to confrontation throughout. Extraocular movement is intact no nystagmus is noted. Facial sensation is normal to touch throughout. The facial strength is normal throughout. Hearing is mildly decreased bilaterally to hand rub. Tongue is midline and moved [id number] without any difficulty. No dysarthria is noted. Shoulder shrug is normal bilaterally. Motor: The strength is 5 over 5 throughout. Normal tone and bulk. Has generalized mild tremor. Cerebellum: Normal finger to nose heel to [place] bilaterally. Sensation: Sensation is normal to touch throughout. Reflexes (right/left):1+ throughout. Plantars are mute bilaterally. Results - Laboratory Findings CBC and BMP: 12/13/21 11:32 06/12/22 11:32 Abnormal Lab Findings: Abnormal Labs 12/12/21 12/12/21 12/12/21 20:09 20:09 21:20 WBC 15.7 H RBC 3.65 L Hgb 10.2 L Hct 33.1 L MCHC 30.8 L Neutrophils # 14.0 H Lymphocytes # 0.5 L Sodium 135 L Carbon Dioxide BUN 35 H Creatinine 1.71 H Glucose 115 H Alkaline Phosphatase 164 H Urine Appearance Cloudy H Urine Blood Moderate H Urine Nitrite Positive H Ur Leukocyte Esterase Large H Urine RBC 16 H Urine WBC 47 H Urine WBC Clumps Occasional H Urine Bacteria Moderate H Urine Mucus Rare H Random Gentamicin 12/13/21 12/13/21 11:32 11:32 WBC 11.2 H RBC 3.46 L Hgb 9.8 L Hct 31.2 L MCHC Neutrophils # 9.4 H Lymphocytes # Sodium Carbon Dioxide 21 L BUN 35 H Creatinine 1.54 H Glucose 101 H Alkaline Phosphatase Urine Appearance Urine Blood Urine Nitrite Ur Leukocyte Esterase Urine RBC Urine WBC Urine WBC Clumps Urine Bacteria Urine Mucus Random Gentamicin 16.8 H* Assessment and Plan Assessment: Break-through seizure: Likely due to underlying acute UTI (she is back to baseline). History of seizure since childhood and is on multiple antiepileptic drugs (Keppra, Trileptal and Lamictal) Acute urinary tract infection Developmental delay Paroxymal atrial fibrillation on ASA Hypertension Plan: An EEG or any additional neurological testing is not needed since patient is back to baseline and it was felt her seizure is provoked due to underlying acute UTI. She was continued on her home dose of Keppra 500 mg 1 tablet twice a day, Lamictal 200 mg 1 tablet 3 times a day and is on Trileptal 300mg bid for her seizures. Q4 hour neuro checks We'll defer the rest of the medical management to the primary team. Recommend patient to follow-up with neurologist as outpatient within 2-3 weeks. The plan is discussed with the patient's nurse. There is no further neurological work-up. Patient is clear for discharge. Neurology will sign off. If Patient has any further seizures please contact neurology team and recommend to pursue with EEG and CT head as inpatient. Dr. Valdez will start neurology service tomorrow AM. Kael Rodriguez M.D. Neuro-hospital Time with Patient: Greater than 30
[2021-12-13] MEDS: SODIUM CHLORIDE 0.9% 1,000 ML IV SCH (16:24)
[2021-12-13] MEDS: lamoTRIgine 100 MG TAB PO SCH ×2 (16:36→19:14)
--- NOTE | 2021-12-13 16:41 | P.HPIM ---
History of Present Illness H&P Date: 12/13/21 This is a 66-year-old female with past medical history significant for atrial fibrillation, paroxysmal, hypertension, moderate intellectual disability, pneumonia, history of MDRO UTI and bacteremia who presents to the hospital with concerns for seizure activity. Patient generally presents with seizure activity when she is sick or has infection and per caregiver states the patient has altered mental status. Patient is a poor historian but states she did have a seizure and she had loss of bowel and bladder. Denies fever, chills. Denies cough and shortness of breath. No chest pain. No headache, dizziness or lightheadedness. She was recently evaluated at this hospital in October of this year and was evaluated by infectious disease for seizure likely due to UTI with resistance to oral antibiotics she also was evaluated by neurology at that time. EKG shows sinus rhythm with possible left atrial enlargement, heart rate 92, QT interval 406. She presents with white count of 15.7, hemoglobin 10.2, sodium 135, BUN 35, creatinine 1.71, glucose 115, alk phos 164. Urinalysis is suggestive infection with cloudy urine moderate blood, positive for nitrates, large leukocyte esterase, 47 WBCs, moderate bacteria. She was admitted to the hospital under observation and has been placed on IV Rocephin empirically and Gentamicin IV. Urine culture is currently pending. We will also hydrate the patient as she is dehydrated on presentation. She is pending evaluation by neurology. REVIEW OF SYSTEMS: CONSTITUTIONAL: No fever, no malaise, no fatigue. HEENT: No recent visual problems or hearing problems. Denied any sore throat. CARDIOVASCULAR: No chest pain, orthopnea, PND, no palpitations, no syncope. PULMONARY: No shortness of breath, no cough, no hemoptysis. GASTROINTESTINAL: No diarrhea, no nausea, no vomiting, no abdominal pain. NEUROLOGICAL: No headaches, no weakness, no numbness. HEMATOLOGICAL: Denies any bleeding or petechiae. GENITOURINARY: Denies any burning micturition, frequency, or urgency. MUSCULOSKELETAL/RHEUMATOLOGICAL: Denies any joint pain, swelling, or any muscle pain. ENDOCRINE: Denies any polyuria or polydipsia. The rest of the 14-point review of systems is negative. PHYSICAL EXAMINATION: GENERAL: The patient is alert and oriented x1-2, not in any acute distress. Well developed, well nourished. HEENT: Pupils are round and equally reacting to light. EOMI. No scleral icterus. No conjunctival pallor. Normocephalic, atraumatic. No pharyngeal erythema. No thyromegaly. CARDIOVASCULAR: S1 and S2 present. No murmurs, rubs, or gallops. PULMONARY: Chest is clear to auscultation, no wheezing or crackles. ABDOMEN: Soft, nontender, nondistended, normoactive bowel sounds. No palpable organomegaly. MUSCULOSKELETAL: No joint swelling or deformity. EXTREMITIES: No cyanosis, clubbing, or pedal edema. NEUROLOGICAL: Gross neurological examination did not reveal any focal deficits. SKIN: No rashes. Assessment and Plan Assessment Breakthrough seizure with underlying seizure disorder UTI with sepsis pending urine culture Leukocytosis secondary to above Acute kidney injury secondary to UTI and dehydration Moderate intellectual disability, stable Paroxysmal atrial fibrillation not on anticoagulation secondary to frequent falls Chronic anemia GI Prophylaxis DVT Prophylaxis Full Code Plan Monitor overnight Pending urine culture Continue on IV antibiotics Continue on IV fluids Repeat BMP Cleared by neurology at this time Resume appropriate home medications Patient will be possible D/C tomorrow The impression and plan of care has been dictated by Glo Diaz Nurse Practitioner as directed. Dr. Alexa MD I have performed a history and physical examination and medical decision making of this patient, discussed the same with the dictator, and agree with the dictators assessment and plan as written, documented as a scribe. Based on total visit time, I have performed more than 50% of this visit. Past Medical History Past Medical History: Atrial Fibrillation, Hypertension, Pneumonia, Seizure Disorder Additional Past Medical History / Comment(s): Vertigo, paroxysmal atrial fibrillation, moderate intellectual disability, SEPTEMBER 2016 UTI AND BACTEREMIA History of Any Multi-Drug Resistant Organisms: ESBL, MRSA Date of last positivie culture/infection: 10/06/21 E.coli ESBL; 06/21/18 MRSA MDRO Source:: Urine-ESBL; Groin-MRSA Past Surgical History: No Surgical Hx Reported Additional Past Surgical History / Comment(s): hx picc line-since removed Past Anesthesia/Blood Transfusion Reactions: No Reported Reaction Additional Past Anesthesia/Blood Transfusion Reaction / Comment(s): medical care manager says not that she knows of Past Psychological History: Anxiety, Schizoaffective Disorder Additional Psychological History / Comment(s): OCD, auditory hallucinations, needs reassurance that she is ok. depressive type schizoaffective. Single. Has a sister as her guardian. Does have 24-hour care in her apartment. No animals in the apartment. No travel history Smoking Status: Never smoker Past Alcohol Use History: None Reported Additional Past Alcohol Use History / Comment(s): Patient is a lifelong nonsmoker, no illicit drug use, alcohol use. Patient lives in her own apartment at [facility] has a room mate and 24-hour care. There are no pets in the home. No recent travel.has walker, rollator, cane showr chair if needed Past Drug Use History: None Reported - Past Family History Father Family Medical History: Cancer Additional Family Medical History / Comment(s): [place] lymphoma Mother Family Medical History: AFIB, Cancer, Congestive Heart Failure (CHF) Additional Family Medical History / Comment(s): lymphocytic lymphoma Medications and Allergies Home Medications Medication Instructions Recorded Confirmed Type Aspirin 325 mg PO DAILY@0700 02/13/14 12/13/21 History OXcarbazepine [Trileptal] 300 mg PO BID@0700,199902/13/14 12/13/21 History Sertraline [Zoloft] 150 mg PO DAILY@0700 02/13/14 12/13/21 History Ziprasidone [Geodon] 80 mg PO BID@0700,199902/13/14 12/13/21 History lamoTRIgine [LaMICtal] 200 mg PO TID@0700,1399,199902/13/14 12/13/21 History Cranberry Fruit Extract [Cranberry] 500 mg PO BID@0700,199901/19/18 12/13/21 History Docusate [Colace] 100 mg PO DAILY@0700 11/26/18 12/13/21 History Metoprolol Tartrate [Lopressor] 12.5 mg PO BID@0700,199912/12/20 12/13/21 History Ferrous Sulfate [Iron (65 MG 325 mg PO BID@0700,199903/13/21 12/13/21 History Elemental)] levETIRAcetam [Keppra] 500 mg PO BID@0700,199910/21/21 12/13/21 History levETIRAcetam [Keppra] 250 mg PO DIRECTED 12/13/21 12/13/21 History Allergies Allergy/AdvReac Type Severity Reaction Status Date / Time No Known Allergies Allergy Verified 10/21/21 10:57 Physical Exam Vitals: Vital Signs Temp Pulse Pulse Resp BP BP Pulse Ox 12/13/21 08:00 88 18 12/13/21 07:00 98.2 F 88 18 139/81 96 12/13/21 01:06 97.9 F 80 18 120/68 98 12/13/21 00:00 78 16 109/77 98 12/12/21 20:15 92 17 149/79 98 12/12/21 19:30 99.9 F H 104 H 20 153/98 94 L Intake and Output 12/12/21 12/13/21 12/13/21 22:59 06:59 14:59 Intake Total 120 Balance 120 Intake: Oral 120 Other: Weight 150 kg 150 kg Results CBC & Chem 7: 12/13/21 11:32 12/13/21 11:32 Labs: Abnormal Lab Results - Last 24 Hours (Table) 12/12/21 12/12/21 12/12/21 Range/Units 20:09 20:09 21:20 WBC 15.7 H (3.8-10.6) k/uL RBC 3.65 L (3.80-5.40) m/uL Hgb 10.2 L (11.4-16.0) gm/dL Hct 33.1 L (34.0-46.0) % MCHC 30.8 L (31.0-37.0) g/dL Neutrophils # 14.0 H (1.3-7.7) k/uL Lymphocytes # 0.5 L (1.0-4.8) k/uL Sodium 135 L (137-145) mmol/L BUN 35 H (7-17) mg/dL Creatinine 1.71 H (0.52-1.04) mg/dL Glucose 115 H (74-99) mg/dL Alkaline Phosphatase 164 H (38-126) U/L Urine Appearance Cloudy H (Clear) Urine Blood Moderate H (Negative) Urine Nitrite Positive H (Negative) Ur Leukocyte Esterase Large H (Negative) Urine RBC 16 H (0-5) /hpf Urine WBC 47 H (0-5) /hpf Urine WBC Clumps Occasional H (None) /hpf Urine Bacteria Moderate H (None) /hpf Urine Mucus Rare H (None) /hpf Microbiology - Last 24 Hours (Table) 12/12/21 21:20 Urine Culture - Preliminary Urine,Catheterized Assessment and Plan Time with Patient: Less than 30
[2021-12-13] MEDS: METOPROLOL TARTRATE 12.5 MG TAB PO SCH (19:14)
[2021-12-13] MEDS: FERROUS SULFATE 325 MG TAB PO SCH (19:14)
[2021-12-13] MEDS: levETIRAcetam 500 MG TAB PO SCH (19:14)
[2021-12-13] MEDS: ZIPRASIDONE 80 MG CAP PO SCH (19:15)
[2021-12-13] MEDS: OXcarbazepine 300 MG TAB PO SCH (19:15)
[2021-12-13] MEDS: NON FORMULARY DRUG (Cranberry Fruit Extract [Cranberry] 500 MG Tablet) PO SCH (19:16)
[2021-12-14] MEDS: SODIUM CHLORIDE 0.9% 1,000 ML IV SCH (01:46)
[2021-12-14] MEDS ORDERED: SERTRALINE 50 MG TAB PO SCH (07:00)
[2021-12-14] MEDS ORDERED: DOCUSATE 100 MG CAP PO SCH (07:00)
[2021-12-14] MEDS ORDERED: ASPIRIN 325 MG TAB PO SCH (07:00)
[2021-12-14 08:10] VITALS: PULSE 77; RESP 16
[2021-12-14 09:02] LABS: Basophils # (A) 0.04 X 10*3/uL (0.00-0.10); Basophils % (A) 0.5 %; Eosinophils # (A) 0.07 X 10*3/uL (0.04-0.35); Eosinophils % (A) 0.9 %; HGB 9.6 g/dL (12.0-15.0); Immature Grans, Automated 0.4 %; Lymphocytes # (A) 1.31 X 10*3/uL (0.90-5.00); Lymphocytes % (A) 16.1 %; MCH 27.9 pg (27.0-32.0); MCV 90.1 fL (80.0-97.0); Mean Platelet Volume 8.6 fL (9.5-12.2); Monocytes # (A) 1.12 X 10*3/uL (0.20-1.00); Monocytes % (A) 13.7 %; NRBC Per 100 WBC 0 /100 WBCS (0.0-0.0); Neutrophils # (A) 5.58 X 10*3/uL (1.80-7.70); Neutrophils % (A) 68.4 %; Platelet Count 208 X 10*3/uL (140-440); RBC 3.44 X 10*6/uL (4.10-5.20); RDW 13.7 % (11.5-14.5); WBC 8.15 X 10*3/uL (4.50-10.00)
[2021-12-14 09:09] LABS: African American GFR (CKD) 45.9 (60.0-200.0); BUN/Creat Ratio 17.36 Ratio (12.00-20.00); Blood Urea Nitrogen 24.3 mg/dL (9.0-27.0); Calcium 9.4 mg/dL (8.7-10.3); Non-African American GFR(CKD) 39.6 (60.0-200.0); Potassium 4.9 mmol/L (3.5-5.5)
[2021-12-14] MEDS: levETIRAcetam 500 MG TAB PO SCH (09:30)
[2021-12-14] MEDS: FERROUS SULFATE 325 MG TAB PO SCH (09:30)
[2021-12-14] MEDS: ZIPRASIDONE 80 MG CAP PO SCH (09:30)
[2021-12-14] MEDS: METOPROLOL TARTRATE 12.5 MG TAB PO SCH (09:30)
[2021-12-14] MEDS: NON FORMULARY DRUG (Cranberry Fruit Extract [Cranberry] 500 MG Tablet) PO SCH (09:31)
[2021-12-14] MEDS: lamoTRIgine 100 MG TAB PO SCH (09:31)
[2021-12-14] MEDS: OXcarbazepine 300 MG TAB PO SCH (09:32)
[2021-12-14] MEDS ORDERED: levETIRAcetam 250 MG TAB PO SCH (12:00)
--- NOTE | 2021-12-14 12:06 | P.DS ---
Providers Date of admission: 12/12/21 22:56 Attending physician: Benedicto Giron Consults: 12/13/21 12:38 Consult Physician Routine Consulting Provider: Kael Rodriguez Consult Reason/Comments: Seizures Do you want consulting provider notified?: Yes Primary care physician: Benedicto Giron Patient Condition at Discharge: Serious Plan - Discharge Summary Discharge Rx Participant: No New Discharge Prescriptions: No Action Aspirin 325 mg PO DAILY@0700 Ziprasidone [Geodon] 80 mg PO BID@07,1999 Sertraline [Zoloft] 150 mg PO DAILY@0700 lamoTRIgine [LaMICtal] 200 mg PO TID@0700,1399,1999 OXcarbazepine [Trileptal] 300 mg PO BID@07,1999 Cranberry Fruit Extract [Cranberry] 500 mg PO BID@0700,1999 Docusate [Colace] 100 mg PO DAILY@07 Ferrous Sulfate [Iron (65 MG Elemental)] 325 mg PO BID@699,1999 levETIRAcetam [Keppra] 500 mg PO HS@1999 Metoprolol Tartrate [Lopressor] 12.5 mg PO BID@699,1999 levETIRAcetam [Keppra] 250 mg PO QAM Discharge Medication List Aspirin 325 mg PO DAILY@0700 02/13/14 [History] OXcarbazepine [Trileptal] 300 mg PO BID@0700,199902/13/14 [History] Sertraline [Zoloft] 150 mg PO DAILY@0700 02/13/14 [History] Ziprasidone [Geodon] 80 mg PO BID@0700,199902/13/14 [History] lamoTRIgine [LaMICtal] 200 mg PO TID@0700,1399,199902/13/14 [History] Cranberry Fruit Extract [Cranberry] 500 mg PO BID@0700,199901/19/18 [History] Docusate [Colace] 100 mg PO DAILY@0700 11/26/18 [History] Metoprolol Tartrate [Lopressor] 12.5 mg PO BID@0700,199912/12/20 [History] Ferrous Sulfate [Iron (65 MG Elemental)] 325 mg PO BID@0700,199903/13/21 [History] levETIRAcetam [Keppra] 500 mg PO HS@199910/21/21 [History] levETIRAcetam [Keppra] 250 mg PO QAM 12/13/21 [History] Follow up Appointment(s)/Referral(s): Benedicto Giron MD [Primary Care Provider] - 1-2 days Patient Instructions/Handouts: Seizure/Epilepsy Discharge Instructions & Follow-Up
[2021-12-14 13:40] VITALS: BP 113/66; TEMP 98.3
[2021-12-14] MEDS ORDERED: levETIRAcetam 500 MG TAB PO SCH (21:00)
[2021-12-15] MEDS ORDERED: GENTAMICIN 140 MG in SODIUM CHLORIDE 0.9% 100 ML IVPB SCH (06:00)
[2021-12-15] MEDS ORDERED: levETIRAcetam 250 MG TAB PO SCH (09:00)
== END 2021-12-14 14:31 ==
LOC: EC 19:20 → 6NMEDSUR 22:56
PROVIDERS: ADMIT Internal Medicine Geriatric Medicine; ATTEND Internal Medicine Geriatric Medicine
DX: G40.909 Epilepsy, unspecified, not intractable, without status epilepticus (principal); A41.9 Sepsis, unspecified organism; N39.0 Urinary tract infection, site not specified; N17.9 Acute kidney failure, unspecified; E86.0 Dehydration; F71 Moderate intellectual disabilities; I48.0 Paroxysmal atrial fibrillation; I11.0 Hypertensive heart disease with heart failure; I50.9 Heart failure, unspecified; R29.6 Repeated falls; F42.9 Obsessive-compulsive disorder, unspecified; D64.9 Anemia, unspecified; F25.9 Schizoaffective disorder, unspecified; F41.9 Anxiety disorder, unspecified; Z79.82 Long term (current) use of aspirin; Z79.899 Other long term (current) drug therapy; Z16.24 Resistance to multiple antibiotics; Z87.440 Personal history of urinary (tract) infections; Z86.19 Personal history of other infectious and parasitic diseases; Z86.14 Personal history of Methicillin resistant Staphylococcus aureus infection; Z82.49 Family history of ischemic heart disease and other diseases of the circulatory system; Z80.7 Family history of other malignant neoplasms of lymphoid, hematopoietic and related tissues
CPT/HCPCS: 99285; 96365; 96361 ×2; 96375; 36415; 93005; 97162; 97166; 80053; 80048 ×2; 83605; 85025 ×3; 85610; 85730; 81001; 87040; 80170; 87086; 87077; 87186; G0378 ×3; J1580

== ENCOUNTER → 2021-12-18 | Outpatient (CLI) | payer MEDICARE, OTHER ==
[2021-12-18 14:24] LABS: Basophils # (A) 0.05 X 10*3/uL (0.00-0.10); Basophils % (A) 0.7 %; Eosinophils # (A) 0.19 X 10*3/uL (0.04-0.35); Eosinophils % (A) 2.7 %; HCT 33.8 % (37.2-46.3); HGB 10.6 g/dL (12.0-15.0); Immature Grans, Automated 0.3 %; Lymphocytes # (A) 1.35 X 10*3/uL (0.90-5.00); Lymphocytes % (A) 18.9 %; MCH 28.5 pg (27.0-32.0); MCHC 31.4 g/dL (32.0-37.0); MCV 90.9 fL (80.0-97.0); Mean Platelet Volume 8.6 fL (9.5-12.2); Monocytes # (A) 0.53 X 10*3/uL (0.20-1.00); Monocytes % (A) 7.4 %; NRBC Per 100 WBC 0 /100 WBCS (0.0-0.0); Neutrophils # (A) 5.01 X 10*3/uL (1.80-7.70); Platelet Count 281 X 10*3/uL (140-440); RBC 3.72 X 10*6/uL (4.10-5.20); RDW 13.5 % (11.5-14.5); WBC 7.15 X 10*3/uL (4.50-10.00)
[2021-12-18 15:02] LABS: African American GFR (CKD) 29.8 (60.0-200.0); BUN/Creat Ratio 17.7 Ratio (12.00-20.00); Blood Urea Nitrogen 35.4 mg/dL (9.0-27.0); Non-African American GFR(CKD) 25.7 (60.0-200.0)
[2021-12-19 11:02] LABS: Levetiracetam (Keppra) 19.3 ug/mL (3.0-60.0)
[2021-12-19 11:05] LABS: Lamotrigine (Lamictal) 9.2 ug/mL (2.0-15.0)
== END | disposition home or self-care (01) ==
LOC: LABWHC1 08:31
PROVIDERS: ATTEND Psychiatry & Neurology Neurology
DX: G40.209 Localization-related (focal) (partial) symptomatic epilepsy and epileptic syndromes with complex partial seizures, not intractable, without status epilepticus (principal); N39.0 Urinary tract infection, site not specified; E87.5 Hyperkalemia
CPT/HCPCS: 36415; 80048; 80175; 80177; 80183; 85025

== ENCOUNTER → 2022-01-28 | Outpatient (CLI) | payer MEDICARE, OTHER ==
--- NOTE | 2022-01-28 11:42 | US ---
EXAMINATION TYPE: US abdomen complete DATE OF EXAM: 01/28/2022 COMPARISON: NONE CLINICAL HISTORY: 66-year-old female R74.8 ABNORMAL LEVELS OF OTHER SERUM ENZYMES. Abnormal liver enz ymes; renal disease TECHNIQUE: Multiple sonographic images of the abdomen are obtained. FINDINGS: EXAM MEASUREMENTS: Liver Length: 16.1 cm Gallbladder Wall: .3 cm CBD: .6 cm Spleen: 11.4 cm Right Kidney: obscured by bowel gas Left Kidney: 9.3 x 4.7 x 3.7 cm Pancreas: wnl Liver: wnl Gallbladder: There is a 1.3 cm shadowing stone dependent within the gallbladder lumen. Gallbladder is borderline distended up to 3.5 cm wide and contains some internal echoes/sludge. There may be some s mall adherent calculi or tiny gallbladder wall polyps measuring up to 4 mm scattered throughout that can be reassessed at 6 months. No wall thickening. Evidence for sonographic Escobar's sign: no CBD: Borderline dilated. Spleen: wnl Right Kidney: Obscured by overlying bowel gas Left Kidney: Borders and cortex not well visualized due to renal disease. No hydronephrosis seen. Upper IVC: wnl Abd Aorta: wnl IMPRESSION: 1. Cholelithiasis and some sludge. There may be tiny adherent calculi or small gallbladder wall polyp s measuring up to 4 mm as well. Findings can be reassessed in 6 months. 2. Borderline dilated bile duct at 6 mm, acceptable for patient's age. 3. Changes of chronic medical renal disease on the left. Right kidney is obscured and not adequately assessed.
== END | disposition home or self-care (01) ==
LOC: RADUSWWP 07:39
PROVIDERS: ATTEND Internal Medicine Geriatric Medicine
DX: K80.20 Calculus of gallbladder without cholecystitis without obstruction (principal); K83.8 Other specified diseases of biliary tract
CPT/HCPCS: 76700

== ENCOUNTER → 2022-02-17 | Outpatient (CLI) | payer MEDICARE, OTHER ==
[2022-02-17 18:59] LABS: % Iron Saturation 29.1 (12.00-45.00); Magnesium 2.3 mg/dL (1.5-2.4); Phosphorus 3.2 mg/dL (2.4-5.1)
[2022-02-17 19:10] LABS: HCT 29.7 % (37.2-46.3); HGB 9.4 g/dL (12.0-15.0); MCH 29.9 pg (27.0-32.0); MCHC 31.6 g/dL (32.0-37.0); MCV 94.6 fL (80.0-97.0); Mean Platelet Volume 8.9 fL (9.5-12.2); NRBC Per 100 WBC 0 /100 WBCS (0.0-0.0); Platelet Count 288 X 10*3/uL (140-440); RBC 3.14 X 10*6/uL (4.10-5.20); RDW 14.9 % (11.5-14.5); WBC 10.24 X 10*3/uL (4.50-10.00)
[2022-02-17 19:11] LABS: African American GFR (CKD) 35.8 (60.0-200.0); Albumin 3.6 g/dL (3.8-4.9); Albumin/Globulin Ratio 0.99 (1.60-3.17); BUN/Creat Ratio 16.22 Ratio (12.00-20.00); Blood Urea Nitrogen 27.9 mg/dL (9.0-27.0); Calcium 9.8 mg/dL (8.7-10.3); Carbon Dioxide 21.7 mmol/L (20.0-27.5); Globulin 3.6 g/dL (1.6-3.3); Non-African American GFR(CKD) 30.9 (60.0-200.0); Potassium 4.8 mmol/L (3.5-5.5); Total Bilirubin 0.7 mg/dL (0.30-1.20); Total Protein 7.2 g/dL (6.2-8.2)
[2022-02-17 19:54] LABS: Microalbumin Creatinine Ratio <30 mg/g Creat (0-30); Urine Creatinine 43.3 mg/dL (28.0-217.0)
[2022-02-18 12:44] LABS: Free Kappa Lt Chain Qnt, Serum 12.13 mg/dL (0.33-1.94); Free Lambda Lt Chain Qnt, Seru 7.53 mg/dL (0.57-2.63)
== END | disposition home or self-care (01) ==
LOC: LABWHC1 10:27
PROVIDERS: ATTEND Nurse Practitioner Family
DX: E55.9 Vitamin D deficiency, unspecified (principal); D64.9 Anemia, unspecified; N18.32 Chronic kidney disease, stage 3b; N25.81 Secondary hyperparathyroidism of renal origin; M10.9 Gout, unspecified
CPT/HCPCS: 36415; 80053; 82043; 82306; 82570; 82728; 83540; 83550; 83735; 83883; 83970; 84100; 84550; 85027

== ENCOUNTER 2022-03-03 17:22 | Emergency (ER) | payer MEDICARE, OTHER ==
[2022-03-03] MEDS ORDERED: PANTOPRAZOLE 40 MG/10 ML VIAL IVP STA (19:25)
[2022-03-03] MEDS ORDERED: SODIUM CHLORIDE 0.9% 1,000 ML IV STA (19:25)
--- NOTE | 2022-03-03 19:30 | ED ---
General Adult HPI - General Chief complaint: Recheck/Abnormal Lab/Rx Stated complaint: sent by doc Time Seen by Provider: 03/03/22 19:00 Source: patient, RN notes reviewed, old records reviewed Mode of arrival: ambulatory Limitations: no limitations - History of Present Illness Initial comments: This is a 66-year-old female with intellectual disability presents with family sent by primary care doctor for low hemoglobin. She has been having abdominal pain for a month and did have a recent ultrasound and CT. She does have a history of cholecystectomy. There was concern on ultrasound for possible obstruction. Yesterday patient became jaundiced. Patient does have a history of atrial fibrillation, hypertension, and seizure disorder. She denies any alcohol, drug or cigarette use. Denies any nausea or vomiting. Denies any chest pain or cough. -: month(s) Location: abdomen Radiation: non-radiation Severity scale (1-10): 3 Quality: aching, constant Associated Symptoms: other (jaundiced) Treatments Prior to Arrival: other (outpatient labs and ultrasound) - Related Data Home Medications Medication Instructions Recorded Confirmed Aspirin 325 mg PO DAILY@0700 02/13/14 12/13/21 OXcarbazepine [Trileptal] 300 mg PO BID@0700,199902/13/14 12/13/21 Sertraline [Zoloft] 150 mg PO DAILY@0700 02/13/14 12/13/21 Ziprasidone [Geodon] 80 mg PO BID@0700,199902/13/14 12/13/21 lamoTRIgine [LaMICtal] 200 mg PO TID@0700,1400,199902/13/14 12/13/21 Cranberry Fruit Extract [Cranberry] 500 mg PO BID@0700,199901/19/18 12/13/21 Docusate [Colace] 100 mg PO DAILY@0700 11/26/18 12/13/21 Metoprolol Tartrate [Lopressor] 12.5 mg PO BID@0700,199912/12/20 12/13/21 Ferrous Sulfate [Iron (65 MG 325 mg PO BID@0700,199903/13/21 12/13/21 Elemental)] levETIRAcetam [Keppra] 500 mg PO HS@199910/21/21 12/14/21 levETIRAcetam [Keppra] 250 mg PO QAM 12/13/21 12/14/21 Previous Rx's Medication Instructions Recorded cefUROXime axetiL [Ceftin] 500 mg PO BID 3 Days #6 tab 12/14/21 Allergies Allergy/AdvReac Type Severity Reaction Status Date / Time No Known Allergies Allergy Verified 03/03/22 17:44 Review of Systems ROS Statement: Those systems with pertinent positive or pertinent negative responses have been documented in the HPI. ROS Other: All systems not noted in ROS Statement are negative. Past Medical History Past Medical History: Atrial Fibrillation, Hypertension, Pneumonia, Seizure Disorder Additional Past Medical History / Comment(s): Vertigo, paroxysmal atrial fibrillation, moderate intellectual disability, SEPTEMBER 2016 UTI AND BACTEREMIA History of Any Multi-Drug Resistant Organisms: ESBL, MRSA Date of last positivie culture/infection: 12/12/21 E.coli ESBL; 06/21/18 MRSA MDRO Source:: Urine-ESBL; Groin-MRSA Past Surgical History: No Surgical Hx Reported Additional Past Surgical History / Comment(s): hx picc line-since removed Past Anesthesia/Blood Transfusion Reactions: No Reported Reaction Additional Past Anesthesia/Blood Transfusion Reaction / Comment(s): personal care assistant says not that she knows of Past Psychological History: Anxiety, Schizoaffective Disorder Smoking Status: Never smoker Past Alcohol Use History: None Reported Past Drug Use History: None Reported - Past Family History Father Family Medical History: Cancer Additional Family Medical History / Comment(s): [place] lymphoma Mother Family Medical History: AFIB, Cancer, Congestive Heart Failure (CHF) Additional Family Medical History / Comment(s): lymphocytic lymphoma General Exam Limitations: no limitations General appearance: alert, in no apparent distress Head exam: Present: atraumatic Eye exam: Present: scleral icterus. Absent: periorbital swelling, periorbital tenderness ENT exam: Present: mucous membranes dry Neck exam: Present: normal inspection, full ROM. Absent: tenderness, meningismus, lymphadenopathy, thyromegaly Respiratory exam: Present: normal lung sounds bilaterally. Absent: respiratory distress, accessory muscle use Cardiovascular Exam: Present: tachycardia GI/Abdominal exam: Present: soft, tenderness (Diffuse), other (bruising to left flank). Absent: distended, guarding, rigid, mass Rectal exam: Present: normal rectal tone, heme (+) stool. Absent: bloody stool, fecal impaction, mass Extremities exam: Present: normal inspection, normal capillary refill. Absent: tenderness, pedal edema, calf tenderness Back exam: Present: normal inspection, full ROM, other (left flank bruising). Absent: tenderness, CVA tenderness (R), CVA tenderness (L), rash noted Neurological exam: Present: alert Psychiatric exam: Present: normal affect, normal mood Skin exam: Present: warm, dry, other (Jaundiced). Absent: cyanosis, petechiae, pallor Course Vital Signs 03/03/22 03/03/22 03/03/22 17:41 21:14 21:46 Temperature 98 F 97.3 F L Pulse Rate 111 H 90 87 Respiratory 20 18 16 Rate Blood Pressure 122/75 113/78 131/72 O2 Sat by Pulse 98 90 L 97 Oximetry 03/03/22 03/03/22 21:56 22:26 Temperature 97.6 F 97.8 F Pulse Rate 89 97 Respiratory 18 18 Rate Blood Pressure 132/66 134/82 O2 Sat by Pulse 96 98 Oximetry EKG Findings - EKG Results: EKG: sinus rhythm (Ventricular rate 86, TX interval 0.193, QRS 0.90, QTC 0.440; axis) Medical Decision Making - Medical Decision Making Patient sent by primary care for low hemoglobin and abdominal pain. CT was performed 02/23 shows a 4.8 cm right hepatic lobe hypodensity lesion with a few calcifications. Abscess versus neoplasm to be considered. Patient is scheduled for an MRCP with Dr. Kyle Tuesday. Family states patient became jaundiced yesterday. She complains of minimally diffuse abdominal pain. Repeat labs show hemoglobin of 6.6 hematocrit 21.3. She is guaiac positive. BUN 34 creat 1.86. Total bili is 2.4, AST 78, ALT 51, alk phos 1366 Family states that the patient does have a history of chronic kidney disease, seizure history which she takes Keppra, and a history of atrial fibrillation takes an aspirin daily, no other anticoagulation. Patient EKG shows sinus rhythm. Sister states last colonoscopy was with Dr. Hernandez in October of this year. Patient was given a unit of blood. Her vital signs are stable. Patient and sister were notified of the results and the plan to transfer her to [facility] for continuation of care. Patient was accepted by Dr. Benjamin. Case discussed with Dr. Pérez. - Lab Data Result diagrams: 03/03/22 19:46 03/03/22 19:46 Lab Results 03/03/22 03/03/22 03/03/22 Range/Units 19:46 19:46 19:46 WBC 7.3 (3.8-10.6) k/uL RBC 2.23 L (3.80-5.40) m/uL Hgb 6.6 L* (11.4-16.0) gm/dL Hct 21.3 L (34.0-46.0) % MCV 95.4 (80.0-100.0) fL MCH 29.5 (25.0-35.0) pg MCHC 30.9 L (31.0-37.0) g/dL RDW 17.6 H (11.5-15.5) % Plt Count 338 (150-450) k/uL MPV 6.8 Neutrophils % 74 % Lymphocytes % 13 % Monocytes % 7 % Eosinophils % 1 % Basophils % 1 % Neutrophils # 5.4 (1.3-7.7) k/uL Lymphocytes # 1.0 (1.0-4.8) k/uL Monocytes # 0.5 (0-1.0) k/uL Eosinophils # 0.1 (0-0.7) k/uL Basophils # 0.0 (0-0.2) k/uL Hypochromasia Slight Anisocytosis Slight Macrocytosis Slight PT 10.8 (9.0-12.0) sec INR 1.0 (<1.2) APTT 24.8 (22.0-30.0) sec Sodium 139 (137-145) mmol/L Potassium 4.3 (3.5-5.1) mmol/L Chloride 105 (98-107) mmol/L Carbon Dioxide 21 L (22-30) mmol/L Anion Gap 13 mmol/L BUN 34 H (7-17) mg/dL Creatinine 1.86 H (0.52-1.04) mg/dL Est GFR (CKD-EPI)AfAm 33 (>60 ml/min/1.73 sqM) Est GFR (CKD-EPI)NonAf 28 (>60 ml/min/1.73 sqM) Glucose 101 H (74-99) mg/dL Plasma Lactic Acid Arcadio (0.7-2.0) mmol/L Calcium 9.3 (8.4-10.2) mg/dL Total Bilirubin 2.4 H (0.2-1.3) mg/dL AST 78 H (14-36) U/L ALT 51 H (4-34) U/L Alkaline Phosphatase 1366 H (38-126) U/L Ammonia (<30) umol/L Total Protein 6.6 (6.3-8.2) g/dL Albumin 3.1 L (3.5-5.0) g/dL Amylase 116 H (30-110) U/L Lipase 219 (23-300) U/L Stool Occult Blood (Negative) Blood Type Blood Type Recheck Bld Type Recheck Status Antibody Screen Crossmatch Spec Expiration Date 03/03/22 03/03/22 03/03/22 Range/Units 19:46 19:46 20:00 WBC (3.8-10.6) k/uL RBC (3.80-5.40) m/uL Hgb (11.4-16.0) gm/dL Hct (34.0-46.0) % MCV (80.0-100.0) fL MCH (25.0-35.0) pg MCHC (31.0-37.0) g/dL RDW (11.5-15.5) % Plt Count (150-450) k/uL MPV Neutrophils % % Lymphocytes % % Monocytes % % Eosinophils % % Basophils % % Neutrophils # (1.3-7.7) k/uL Lymphocytes # (1.0-4.8) k/uL Monocytes # (0-1.0) k/uL Eosinophils # (0-0.7) k/uL Basophils # (0-0.2) k/uL Hypochromasia Anisocytosis Macrocytosis PT (9.0-12.0) sec INR (<1.2) APTT (22.0-30.0) sec Sodium (137-145) mmol/L Potassium (3.5-5.1) mmol/L Chloride (98-107) mmol/L Carbon Dioxide (22-30) mmol/L Anion Gap mmol/L BUN (7-17) mg/dL Creatinine (0.52-1.04) mg/dL Est GFR (CKD-EPI)AfAm (>60 ml/min/1.73 sqM) Est GFR (CKD-EPI)NonAf (>60 ml/min/1.73 sqM) Glucose (74-99) mg/dL Plasma Lactic Acid Arcadio 0.6 L (0.7-2.0) mmol/L Calcium (8.4-10.2) mg/dL Total Bilirubin (0.2-1.3) mg/dL AST (14-36) U/L ALT (4-34) U/L Alkaline Phosphatase (38-126) U/L Ammonia 15 (<30) umol/L Total Protein (6.3-8.2) g/dL Albumin (3.5-5.0) g/dL Amylase (30-110) U/L Lipase (23-300) U/L Stool Occult Blood Positive H (Negative) Blood Type O Positive Blood Type Recheck O Pos Bld Type Recheck Status No Antibody Screen NEGATIVE Crossmatch See Detail Spec Expiration Date 03/06/20222299 Disposition Clinical Impression: GI bleed, Hepatic lesion, Kidney disease Disposition: OTHER INSTITUTION NOT DEFINED Referrals: Benedicto Giron MD [Primary Care Provider] - 1-2 days Decision Date: 03/03/22 Decision Time: 21:26 - Out of Hospital Transfer - Req. Specs Out of Hospital Transfer - Requested Specifics: Other Emergency Center ([facility])
[2022-03-03 20:14] LABS: Albumin 3.1 g/dL (3.5-5.0); Calcium 9.3 mg/dL (8.4-10.2); Potassium 4.3 mmol/L (3.5-5.1); Total Bilirubin 2.4 mg/dL (0.2-1.3); Total Protein 6.6 g/dL (6.3-8.2)
[2022-03-03 20:15] LABS: Lactic Acid, Venous 0.6 mmol/L (0.7-2.0)
[2022-03-03 20:22] LABS: Partial Thromboplastin Time 24.8 sec (22.0-30.0); Prothrombin Time 10.8 sec (9.0-12.0)
[2022-03-03 20:25] LABS: Anisocytosis Slight; Basophils % (A) 1 %; Eosinophils # (A) 0.1 k/uL (0-0.7); Eosinophils % (A) 1 %; HCT 21.3 % (34.0-46.0); Hypochromasia Slight; Lymphocytes % (A) 13 %; MCH 29.5 pg (25.0-35.0); MCHC 30.9 g/dL (31.0-37.0); MCV 95.4 fL (80.0-100.0); Macrocytosis Slight; Mean Platelet Volume 6.8; Monocytes # (A) 0.5 k/uL (0-1.0); Monocytes % (A) 7 %; Neutrophils # (A) 5.4 k/uL (1.3-7.7); Neutrophils % (A) 74 %; Platelet Count 338 k/uL (150-450); RBC 2.23 m/uL (3.80-5.40); RDW 17.6 % (11.5-15.5); WBC 7.3 k/uL (3.8-10.6)
[2022-03-03 20:35] LABS: HGB 6.6 gm/dL (11.4-16.0)
[2022-03-04] MEDS: levETIRAcetam IV 500 MG in SODIUM CHLORIDE 0.9% 100 ML IVPB SCH ×2 (01:24→12:12)
[2022-03-04 12:30] LABS: Anisocytosis Slight; Basophils % (A) 0 %; Eosinophils % (A) 0 %; HCT 24.6 % (34.0-46.0); HGB 7.7 gm/dL (11.4-16.0); Hypochromasia Slight; Lymphocytes # (A) 0.9 k/uL (1.0-4.8); Lymphocytes % (A) 12 %; MCH 29.6 pg (25.0-35.0); MCHC 31.2 g/dL (31.0-37.0); MCV 94.8 fL (80.0-100.0); Macrocytosis Slight; Mean Platelet Volume 7.4; Monocytes # (A) 0.5 k/uL (0-1.0); Monocytes % (A) 6 %; Neutrophils # (A) 6.2 k/uL (1.3-7.7); Neutrophils % (A) 78 %; Platelet Count 323 k/uL (150-450); RBC 2.59 m/uL (3.80-5.40); RDW 17.4 % (11.5-15.5); WBC 7.9 k/uL (3.8-10.6)
[2022-03-04 12:47] LABS: Albumin 2.9 g/dL (3.5-5.0); Calcium 9.1 mg/dL (8.4-10.2); Potassium 4.5 mmol/L (3.5-5.1); Total Bilirubin 3.6 mg/dL (0.2-1.3); Total Protein 6.3 g/dL (6.3-8.2)
[2022-03-04 13:20] LABS: Appearance,Urine Clear (Clear); Bilirubin,Urine Negative (Negative); Blood,Urine Moderate (Negative); Color,Urine Yellow; Glucose,Urine (UA) Negative (Negative); Ketones,Urine Negative (Negative); Leukocyte Esterase,Urine Negative (Negative); Nitrite,Urine Negative (Negative); PH, Urine 6.5 (5.0-8.0); Protein,Urine Negative (Negative); RBC,Urine <1 /hpf (0-5); Specific Gravity,Urine 1.006 (1.001-1.035); Squamous Epithelial Cell,Urine <1 /hpf (0-4); Urobilinogen,Urine <2.0 mg/dL (<2.0); WBC,Urine 2 /hpf (0-5)
[2022-03-04] MEDS: SODIUM CHLORIDE 0.9% 1,000 ML IV SCH ×2 (13:37)
--- NOTE | 2022-03-04 14:03 | P.CONS ---
History of Present Illness - Reason for Consult Consult date: 03/04/22 Medical management - Chief Complaint Abdominal pain - History of Present Illness This is a 66-year-old female who has some baseline intellectual disability. Patient presented to the hospital after being sent in by primary care physician due to low hemoglobin. Patient has been having intermittent abdominal pain for the past 1 month. Her primary care physician had outpatient abdominal ultrasound and CT performed. CT abdomen and pelvis that was performed on 02/23/2022 showed 4.8 cm right hepatic lobe hypodense lesion representing possible biloma versus neoplasm. Patient also had nonspecific intrahepatic biliary duct dilation. Patient currently denies any fevers or chills or di arrhea no hematochezia melena or hematemesis reported. Patient denies any previous history of GI bleed. Patient had a fecal occult blood test performed in the emergency room which revealed positive. Patient is currently in the emergency room awaiting transfer to [facility] to be seen by GI team for possible ERCP. Sound physicians consulted for medical management while patient still remains in the emergency room. Review of Systems A full complete 12 point review of system conducted pertinent positives HPI Past Medical History Past Medical History: Atrial Fibrillation, Hypertension, Pneumonia, Seizure Disorder Additional Past Medical History / Comment(s): Vertigo, paroxysmal atrial f ibrillation, moderate intellectual disability, SEPTEMBER 2016 UTI AND BACTEREMIA History of Any Multi-Drug Resistant Organisms: ESBL, MRSA Year Discovered:: 12/12/21 E.coli ESBL; 06/21/18 MRSA MDRO Source:: Urine-ESBL; Groin-MRSA Past Surgical History: No Surgical Hx Reported Additional Past Surgical History / Comment(s): hx picc line-since removed Past Anesthesia/Blood Transfusion Reactions: No Reported Reaction Additional Past Anesthesia/Blood Transfusion Reaction / Comm: managed care provider says not that she knows of Past Psychological History: Anxiety, Schizoaffective Disorder Smoking Status: Never smoker Past Alcohol Use History: None Reported Past Drug Use History: None Reported - Past Family History Father Family Medical History: Cancer Additional Family Medical History / Comment(s): [place] lymphoma Mother Family Medical History: AFIB, Cancer, Congestive Heart Failure (CHF) Additional Family Medical History / Comment(s): lymphocytic lymphoma Medications and Allergies Home Medications Medication Instructions Recorded Confirmed Type Aspirin 325 mg PO DAILY@0700 02/13/14 03/04/22 History OXcarbazepine [Trileptal] 300 mg PO BID@0700,199902/13/14 03/04/22 History Sertraline [Zoloft] 150 mg PO DAILY@00 02/13/14 03/04/22 History Ziprasidone [Geodon] 80 mg PO BID@0700,199902/13/14 03/04/22 History lamoTRIgine [LaMICtal] 200 mg PO TID@0700,1399,199902/13/14 03/04/22 History Cranberry Fruit Extract [Cranberry] 500 mg PO BID@0700,199901/19/18 03/04/22 History Docusate [Colace] 100 mg PO DAILY@69911/26/18 03/04/22 History Metoprolol Tartrate [Lopressor] 12.5 mg PO BID@0700,199912/12/20 03/04/22 History Ferrous Sulfate [Iron (65 MG 325 mg PO BID@0700,199903/13/21 03/04/22 History Elemental)] levETIRAcetam [Keppra] 500 mg PO HS@199910/21/21 03/04/22 History levETIRAcetam [Keppra] 250 mg PO QAM 12/13/21 03/04/22 History Allergies Allergy/AdvReac Type Severity Reaction Status Date / Time No Known Allergies Allergy Verified 03/04/22 10:13 Physical Exam Osteopathic Statement: *. No significant issues noted on an osteopathic structural exam other than those noted in the History and Physical/Consult. Vitals: Vital Signs Temp Pulse Resp BP Pulse Ox 03/04/22 11:00 99 F 84 18 134/81 98 03/04/22 06:20 98 F 83 17 133/79 94 L 03/04/22 00:24 98.1 F 91 18 136/79 96 03/03/22 23:30 86 19 125/78 98 03/03/22 23:00 82 16 138/77 97 03/03/22 22:26 97.8 F 97 18 134/82 98 03/03/22 21:56 97.6 F 89 18 132/66 96 03/03/22 21:46 97.3 F L 87 16 131/72 97 03/03/22 21:14 90 18 113/78 90 L 03/03/22 17:41 98 F 111 H 20 122/75 98 Intake and Output 03/03/22 03/04/22 03/04/22 22:59 06:59 14:59 Intake Total 0 283 Balance 0 283 Intake: Blood Product 0 283 Rc Pheresis As-3 Unit 0 283 [id number] Other: Weight 67.132 kg Gen.: Patient is alert and oriented 3 in no acute distress HEENT: Pupils equal round reactive to light and accommodation extraocular muscles intact normocephalic/atraumatic Heart: Regular rate and rhythm normal S1-S2 Lungs: Clear to auscultation bilaterally Abdomen: Soft nondistended nontender to palpation Extremities: Lower extremity edema bilateral Skin: Warm and dry to the touch Results CBC & Chem 7: 03/04/22 12:25 03/04/22 12:25 Labs: Abnormal Lab Results - Last 24 Hours (Table) 03/03/22 03/03/22 03/03/22 Range/Units 19:46 19:46 19:46 RBC 2.23 L (3.80-5.40) m/uL Hgb 6.6 L* (11.4-16.0) gm/dL Hct 21.3 L (34.0-46.0) % MCHC 30.9 L (31.0-37.0) g/dL RDW 17.6 H (11.5-15.5) % Lymphocytes # (1.0-4.8) k/uL Chloride (98-107) mmol/L Carbon Dioxide 21 L (22-30) mmol/L BUN 34 H (7-17) mg/dL Creatinine 1.86 H (0.52-1.04) mg/dL Glucose 101 H (74-99) mg/dL Plasma Lactic Acid Arcadio 0.6 L (0.7-2.0) mmol/L Total Bilirubin 2.4 H (0.2-1.3) mg/dL AST 78 H (14-36) U/L ALT 51 H (4-34) U/L Alkaline Phosphatase 1366 H (38-126) U/L Albumin 3.1 L (3.5-5.0) g/dL Amylase 116 H (30-110) U/L Urine Blood (Negative) Stool Occult Blood (Negative) Crossmatch 03/03/22 03/03/22 03/04/22 Range/Units 19:46 20:00 12:25 RBC 2.59 L (3.80-5.40) m/uL Hgb 7.7 L (11.4-16.0) gm/dL Hct 24.6 L (34.0-46.0) % MCHC (31.0-37.0) g/dL RDW 17.4 H (11.5-15.5) % Lymphocytes # 0.9 L (1.0-4.8) k/uL Chloride (98-107) mmol/L Carbon Dioxide (22-30) mmol/L BUN (7-17) mg/dL Creatinine (0.52-1.04) mg/dL Glucose (74-99) mg/dL Plasma Lactic Acid Arcadio (0.7-2.0) mmol/L Total Bilirubin (0.2-1.3) mg/dL AST (14-36) U/L ALT (4-34) U/L Alkaline Phosphatase (38-126) U/L Albumin (3.5-5.0) g/dL Amylase (30-110) U/L Urine Blood (Negative) Stool Occult Blood Positive H (Negative) Crossmatch See Detail 03/04/22 03/04/22 Range/Units 12:25 12:55 RBC (3.80-5.40) m/uL Hgb (11.4-16.0) gm/dL Hct (34.0-46.0) % MCHC (31.0-37.0) g/dL RDW (11.5-15.5) % Lymphocytes # (1.0-4.8) k/uL Chloride 110 H (98-107) mmol/L Carbon Dioxide 21 L (22-30) mmol/L BUN 24 H (7-17) mg/dL Creatinine 1.70 H (0.52-1.04) mg/dL Glucose 104 H (74-99) mg/dL Plasma Lactic Acid Arcadio (0.7-2.0) mmol/L Total Bilirubin 3.6 H (0.2-1.3) mg/dL AST 74 H (14-36) U/L ALT 49 H (4-34) U/L Alkaline Phosphatase 1474 H (38-126) U/L Albumin 2.9 L (3.5-5.0) g/dL Amylase (30-110) U/L Urine Blood Moderate H (Negative) Stool Occult Blood (Negative) Crossmatch Assessment and Plan (1) GI bleed Current Visit: Yes Status: Acute Code(s): K92.2 - GASTROINTESTINAL HEMORRHAGE, UNSPECIFIED SNOMED Code(s): 34348740 Plan: Normocytic normochromic anemia -FOB positive -Patient presented to the hospital with a hemoglobin of 6.6. Received 1 unit PRBC with improvement to 7.7 -Patient has no reports of melanotic stools -Continue with PPI twice a day -Continue to monitor H&H -Check iron studies Abdominal pain Hyperbilirubinemia Transaminitis -Computed tomography scan that was performed on 02/23/2022 reviewed -Patient has 4.8 cm right hepatic lobe lesion as well as intrahepatic biliary duct dilation -We will order abdominal ultrasound -Patient will benefit from MRCP/ERCP -Patient is currently awaiting transfer to [facility] Epilepsy -Continue with home seizure medications including Lamictal, Keppra, Trileptal Hypertension -Metoprolol DVT prophylaxis: SCD, GI prophylaxis: Protonix CODE STATUS: Full Diet: Nothing by mouth Disposition: Patient is awaiting transfer to [facility]
[2022-03-04] MEDS: lamoTRIgine 100 MG TAB PO SCH ×2 (14:13→20:54)
[2022-03-04 15:00] LABS: Anisocytosis Slight; Basophils % (A) 1 %; Eosinophils % (A) 1 %; HCT 24.1 % (34.0-46.0); HGB 7.6 gm/dL (11.4-16.0); Hypochromasia Slight; Lymphocytes # (A) 1.1 k/uL (1.0-4.8); Lymphocytes % (A) 14 %; MCH 29.8 pg (25.0-35.0); MCHC 31.6 g/dL (31.0-37.0); MCV 94.2 fL (80.0-100.0); Macrocytosis Slight; Mean Platelet Volume 6.8; Monocytes # (A) 0.6 k/uL (0-1.0); Monocytes % (A) 7 %; Neutrophils # (A) 5.9 k/uL (1.3-7.7); Neutrophils % (A) 74 %; Platelet Count 337 k/uL (150-450); RBC 2.56 m/uL (3.80-5.40); RDW 17.4 % (11.5-15.5)
[2022-03-04 15:01] LABS: Albumin 2.9 g/dL (3.5-5.0); Calcium 9.2 mg/dL (8.4-10.2); Total Bilirubin 3.6 mg/dL (0.2-1.3); Total Protein 6.3 g/dL (6.3-8.2)
[2022-03-04] MEDS ORDERED: MORPHINE SULFATE 2 MG/ML SYRINGE IVP PRN (16:15)
--- NOTE | 2022-03-04 16:42 | US ---
EXAMINATION TYPE: US abdomen complete DATE OF EXAM: 03/04/2022 COMPARISON: CT abdomen 02/23/2022, abdominal ultrasound 01/28/2022 CLINICAL HISTORY: abdominal pain. GB removed. Pain. Abnormal labs. TECHNIQUE: Multiple sonographic images of the abdomen are obtained. FINDINGS: EXAM MEASUREMENTS: Liver Length: 14.8 cm CBD: 0.4 cm CHD: 1.0 cm Spleen: 12.5 cm Right Kidney: 7.5 x 5.0 cm Estimated ANGER CONTROL COUNSELOR NOTES: Limited due to bowel gas and patient position Pancreas: wnl Liver: Intrahepatic biliary dilatation. Complex lesion located at portal hepatis with internal calc ification= 4.2 x 3.9 x 4.7 cm. Stable from prior examination. Portal rojas appear echogenic. Gallbladder: Surgically absent CBD: wnl Spleen: Upper limits of normal in size Right Kidney: Appears small and echogenic, limited visualization. No hydronephrosis. Left Kidney: Limited visualization, unable to accurately visualized Upper IVC: wnl Abd Aorta: Mid and distal obscured by overlying bowel gas IMPRESSION: 1. Limited examination with redemonstration of complex cystic lesion in the liver with internal calc ification measuring up to 4.2 cm. Stable from prior ultrasound. Etiologies again include biloma versu s abscess versus neoplasm. Further evaluation with contrasted CT or MRI is recommended versus aspirat ion. 2. Atrophy of the right kidney.
[2022-03-04] MEDS ORDERED: PANTOPRAZOLE 40 MG TABLET PO SCH (17:30)
[2022-03-04 18:47] VITALS: TEMP 98.1
[2022-03-04] MEDS ORDERED: METOPROLOL TARTRATE 12.5 MG TAB PO SCH (20:00)
[2022-03-04] MEDS ORDERED: ZIPRASIDONE 80 MG CAP PO SCH (20:00)
[2022-03-04] MEDS ORDERED: OXcarbazepine 300 MG TAB PO SCH (20:00)
[2022-03-04] MEDS ORDERED: FERROUS SULFATE 325 MG TAB PO SCH (20:00)
[2022-03-04] MEDS ORDERED: levETIRAcetam 500 MG TAB PO SCH (20:00)
[2022-03-04 20:05] VITALS: PULSE 86; RESP 16
[2022-03-04 20:58] VITALS: BP 160/85
--- NOTE | 2022-03-04 23:35 | ED ---
Medical Decision Making - Medical Decision Making Patient is pending transfer to [facility], however patient is low on the last. Transfer is for evaluation for more urgent ERCP or MRCP due to the acutely elevated alk phos, bilirubins and the patient. She has a history of a cholecystectomy, however has been having worsening chronic abdominal pain. Imaging has shown that she has a cystic mass in the liver concerning for either bilioma versus cancer. No other findings on imaging. Patient was also incidentally found to have a suspected GI bleed with Hemoccult-positive stool and in anemia below baseline at 6.6. Responded to 1 unit packed red blood cells while here. Hemodynamically stable since. No other acute complaints. Mildly worsening jaundice. Due to the multi day wait for [facility], and our facility not having GI coverage until next week patient cannot be admitted here. We did recheck to [facility] who accepted the patient immediately. I spoke with the GI fellow on-call, Dr. Lawrence who accepted the patient. The accepting emergency doctor physician is Dr. Steward. Patient will be transferred to home on [address] in stable condition. Patient being transferred for GI evaluation. - Lab Data Result diagrams: 03/04/22 14:37 03/04/22 14:37 Lab Results 03/03/22 03/03/22 03/03/22 Range/Units 19:46 19:46 19:46 WBC 7.3 (3.8-10.6) k/uL RBC 2.23 L (3.80-5.40) m/uL Hgb 6.6 L* (11.4-16.0) gm/dL Hct 21.3 L (34.0-46.0) % MCV 95.4 (80.0-100.0) fL MCH 29.5 (25.0-35.0) pg MCHC 30.9 L (31.0-37.0) g/dL RDW 17.6 H (11.5-15.5) % Plt Count 338 (150-450) k/uL MPV 6.8 Neutrophils % 74 % Lymphocytes % 13 % Monocytes % 7 % Eosinophils % 1 % Basophils % 1 % Neutrophils # 5.4 (1.3-7.7) k/uL Lymphocytes # 1.0 (1.0-4.8) k/uL Monocytes # 0.5 (0-1.0) k/uL Eosinophils # 0.1 (0-0.7) k/uL Basophils # 0.0 (0-0.2) k/uL Hypochromasia Slight Anisocytosis Slight Macrocytosis Slight PT 10.8 (9.0-12.0) sec INR 1.0 (<1.2) APTT 24.8 (22.0-30.0) sec Sodium 139 (137-145) mmol/L Potassium 4.3 (3.5-5.1) mmol/L Chloride 105 (98-107) mmol/L Carbon Dioxide 21 L (22-30) mmol/L Anion Gap 13 mmol/L BUN 34 H (7-17) mg/dL Creatinine 1.86 H (0.52-1.04) mg/dL Est GFR (CKD-EPI)AfAm 33 (>60 ml/min/1.73 sqM) Est GFR (CKD-EPI)NonAf 28 (>60 ml/min/1.73 sqM) Glucose 101 H (74-99) mg/dL Plasma Lactic Acid Arcadio (0.7-2.0) mmol/L Calcium 9.3 (8.4-10.2) mg/dL Total Bilirubin 2.4 H (0.2-1.3) mg/dL AST 78 H (14-36) U/L ALT 51 H (4-34) U/L Alkaline Phosphatase 1366 H (38-126) U/L Ammonia (<30) umol/L Total Protein 6.6 (6.3-8.2) g/dL Albumin 3.1 L (3.5-5.0) g/dL Amylase 116 H (30-110) U/L Lipase 219 (23-300) U/L Urine Color Urine Appearance (Clear) Urine pH (5.0-8.0) Ur Specific Murdock (1.001-1.035) Urine Protein (Negative) Urine Glucose (UA) (Negative) Urine Ketones (Negative) Urine Blood (Negative) Urine Nitrite (Negative) Urine Bilirubin (Negative) Urine Urobilinogen (<2.0) mg/dL Ur Leukocyte Esterase (Negative) Urine RBC (0-5) /hpf Urine WBC (0-5) /hpf Ur Squamous Epith Cells (0-4) /hpf Stool Occult Blood (Negative) Coronavirus (PCR) (Not Detectd) Blood Type Blood Type Recheck Bld Type Recheck Status Antibody Screen Crossmatch Spec Expiration Date 03/03/22 03/03/22 03/03/22 Range/Units 19:46 19:46 20:00 WBC (3.8-10.6) k/uL RBC (3.80-5.40) m/uL Hgb (11.4-16.0) gm/dL Hct (34.0-46.0) % MCV (80.0-100.0) fL MCH (25.0-35.0) pg MCHC (31.0-37.0) g/dL RDW (11.5-15.5) % Plt Count (150-450) k/uL MPV Neutrophils % % Lymphocytes % % Monocytes % % Eosinophils % % Basophils % % Neutrophils # (1.3-7.7) k/uL Lymphocytes # (1.0-4.8) k/uL Monocytes # (0-1.0) k/uL Eosinophils # (0-0.7) k/uL Basophils # (0-0.2) k/uL Hypochromasia Anisocytosis Macrocytosis PT (9.0-12.0) sec INR (<1.2) APTT (22.0-30.0) sec Sodium (137-145) mmol/L Potassium (3.5-5.1) mmol/L Chloride (98-107) mmol/L Carbon Dioxide (22-30) mmol/L Anion Gap mmol/L BUN (7-17) mg/dL Creatinine (0.52-1.04) mg/dL Est GFR (CKD-EPI)AfAm (>60 ml/min/1.73 sqM) Est GFR (CKD-EPI)NonAf (>60 ml/min/1.73 sqM) Glucose (74-99) mg/dL Plasma Lactic Acid Arcadio 0.6 L (0.7-2.0) mmol/L Calcium (8.4-10.2) mg/dL Total Bilirubin (0.2-1.3) mg/dL AST (14-36) U/L ALT (4-34) U/L Alkaline Phosphatase (38-126) U/L Ammonia 15 (<30) umol/L Total Protein (6.3-8.2) g/dL Albumin (3.5-5.0) g/dL Amylase (30-110) U/L Lipase (23-300) U/L Urine Color Urine Appearance (Clear) Urine pH (5.0-8.0) Ur Specific Murdock (1.001-1.035) Urine Protein (Negative) Urine Glucose (UA) (Negative) Urine Ketones (Negative) Urine Blood (Negative) Urine Nitrite (Negative) Urine Bilirubin (Negative) Urine Urobilinogen (<2.0) mg/dL Ur Leukocyte Esterase (Negative) Urine RBC (0-5) /hpf Urine WBC (0-5) /hpf Ur Squamous Epith Cells (0-4) /hpf Stool Occult Blood Positive H (Negative) Coronavirus (PCR) (Not Detectd) Blood Type O Positive Blood Type Recheck O Pos Bld Type Recheck Status No Antibody Screen NEGATIVE Crossmatch See Detail Spec Expiration Date 03/06/2022 - 229903/03/22 03/04/22 03/04/22 Range/Units 22:58 12:25 12:25 WBC 7.9 (3.8-10.6) k/uL RBC 2.59 L (3.80-5.40) m/uL Hgb 7.7 L (11.4-16.0) gm/dL Hct 24.6 L (34.0-46.0) % MCV 94.8 (80.0-100.0) fL MCH 29.6 (25.0-35.0) pg MCHC 31.2 (31.0-37.0) g/dL RDW 17.4 H (11.5-15.5) % Plt Count 323 (150-450) k/uL MPV 7.4 Neutrophils % 78 % Lymphocytes % 12 % Monocytes % 6 % Eosinophils % 0 % Basophils % 0 % Neutrophils # 6.2 (1.3-7.7) k/uL Lymphocytes # 0.9 L (1.0-4.8) k/uL Monocytes # 0.5 (0-1.0) k/uL Eosinophils # 0.0 (0-0.7) k/uL Basophils # 0.0 (0-0.2) k/uL Hypochromasia Slight Anisocytosis Slight Macrocytosis Slight PT (9.0-12.0) sec INR (<1.2) APTT (22.0-30.0) sec Sodium 141 (137-145) mmol/L Potassium 4.5 (3.5-5.1) mmol/L Chloride 110 H (98-107) mmol/L Carbon Dioxide 21 L (22-30) mmol/L Anion Gap 10 mmol/L BUN 24 H (7-17) mg/dL Creatinine 1.70 H (0.52-1.04) mg/dL Est GFR (CKD-EPI)AfAm 36 (>60 ml/min/1.73 sqM) Est GFR (CKD-EPI)NonAf 32 (>60 ml/min/1.73 sqM) Glucose 104 H (74-99) mg/dL Plasma Lactic Acid Arcadio (0.7-2.0) mmol/L Calcium 9.1 (8.4-10.2) mg/dL Total Bilirubin 3.6 H (0.2-1.3) mg/dL AST 74 H (14-36) U/L ALT 49 H (4-34) U/L Alkaline Phosphatase 1474 H (38-126) U/L Ammonia (<30) umol/L Total Protein 6.3 (6.3-8.2) g/dL Albumin 2.9 L (3.5-5.0) g/dL Amylase (30-110) U/L Lipase (23-300) U/L Urine Color Urine Appearance (Clear) Urine pH (5.0-8.0) Ur Specific Murdock (1.001-1.035) Urine Protein (Negative) Urine Glucose (UA) (Negative) Urine Ketones (Negative) Urine Blood (Negative) Urine Nitrite (Negative) Urine Bilirubin (Negative) Urine Urobilinogen (<2.0) mg/dL Ur Leukocyte Esterase (Negative) Urine RBC (0-5) /hpf Urine WBC (0-5) /hpf Ur Squamous Epith Cells (0-4) /hpf Stool Occult Blood (Negative) Coronavirus (PCR) Not Detected (Not Detectd) Blood Type Blood Type Recheck Bld Type Recheck Status Antibody Screen Crossmatch Spec Expiration Date 03/04/22 03/04/22 03/04/22 Range/Units 12:55 14:37 14:37 WBC 8.0 (3.8-10.6) k/uL RBC 2.56 L (3.80-5.40) m/uL Hgb 7.6 L (11.4-16.0) gm/dL Hct 24.1 L (34.0-46.0) % MCV 94.2 (80.0-100.0) fL MCH 29.8 (25.0-35.0) pg MCHC 31.6 (31.0-37.0) g/dL RDW 17.4 H (11.5-15.5) % Plt Count 337 (150-450) k/uL MPV 6.8 Neutrophils % 74 % Lymphocytes % 14 % Monocytes % 7 % Eosinophils % 1 % Basophils % 1 % Neutrophils # 5.9 (1.3-7.7) k/uL Lymphocytes # 1.1 (1.0-4.8) k/uL Monocytes # 0.6 (0-1.0) k/uL Eosinophils # 0.0 (0-0.7) k/uL Basophils # 0.0 (0-0.2) k/uL Hypochromasia Slight Anisocytosis Slight Macrocytosis Slight PT (9.0-12.0) sec INR (<1.2) APTT (22.0-30.0) sec Sodium 141 (137-145) mmol/L Potassium 4.0 (3.5-5.1) mmol/L Chloride 110 H (98-107) mmol/L Carbon Dioxide 19 L (22-30) mmol/L Anion Gap 12 mmol/L BUN 23 H (7-17) mg/dL Creatinine 1.66 H (0.52-1.04) mg/dL Est GFR (CKD-EPI)AfAm 37 (>60 ml/min/1.73 sqM) Est GFR (CKD-EPI)NonAf 32 (>60 ml/min/1.73 sqM) Glucose 101 H (74-99) mg/dL Plasma Lactic Acid Arcadio (0.7-2.0) mmol/L Calcium 9.2 (8.4-10.2) mg/dL Total Bilirubin 3.6 H (0.2-1.3) mg/dL AST 77 H (14-36) U/L ALT 47 H (4-34) U/L Alkaline Phosphatase 1468 H (38-126) U/L Ammonia (<30) umol/L Total Protein 6.3 (6.3-8.2) g/dL Albumin 2.9 L (3.5-5.0) g/dL Amylase (30-110) U/L Lipase (23-300) U/L Urine Color Yellow Urine Appearance Clear (Clear) Urine pH 6.5 (5.0-8.0) Ur Specific Murdock 1.006 (1.001-1.035) Urine Protein Negative (Negative) Urine Glucose (UA) Negative (Negative) Urine Ketones Negative (Negative) Urine Blood Moderate H (Negative) Urine Nitrite Negative (Negative) Urine Bilirubin Negative (Negative) Urine Urobilinogen <2.0 (<2.0) mg/dL Ur Leukocyte Esterase Negative (Negative) Urine RBC <1 (0-5) /hpf Urine WBC 2 (0-5) /hpf Ur Squamous Epith Cells <1 (0-4) /hpf Stool Occult Blood (Negative) Coronavirus (PCR) (Not Detectd) Blood Type Blood Type Recheck Bld Type Recheck Status Antibody Screen Crossmatch Spec Expiration Date Disposition Clinical Impression: GI bleed, Hepatic lesion, Kidney disease Disposition: OTHER INSTITUTION NOT DEFINED Condition: Stable Referrals: Benedicto Giron MD [Primary Care Provider] - 1-2 days - Out of Hospital Transfer - Req. Specs Out of Hospital Transfer - Requested Specifics: Other Emergency Center (Transfer to [facility] in stable condition for escalation of care for GI coverage.)
[2022-03-05] MEDS ORDERED: SERTRALINE 50 MG TAB PO SCH (07:00)
[2022-03-05] MEDS ORDERED: levETIRAcetam 250 MG TAB PO SCH (09:00)
== END 2022-03-04 23:52 | disposition other institution (70) ==
LOC: EC 17:22
DX: K92.2 Gastrointestinal hemorrhage, unspecified (principal); I10 Essential (primary) hypertension
CPT/HCPCS: 99283 ×2; 36415 ×2; 93005; 86900; 86901; 80053 ×2; 82140; 82150; 83605; 83690; 85025 ×2; 85610; 85730; 86850; 86920; 82272; 81001; 87635; 76700; 36430; P9016; J2270; J1953

== ENCOUNTER → 2022-03-03 | Outpatient (CLI) | payer MEDICARE, OTHER ==
[2022-03-03 15:50] LABS: Basophils # (A) 0.03 X 10*3/uL (0.00-0.10); Basophils % (A) 0.4 %; Eosinophils # (A) 0.06 X 10*3/uL (0.04-0.35); Eosinophils % (A) 0.8 %; Immature Grans, Automated 0.8 %; Lymphocytes # (A) 1.17 X 10*3/uL (0.90-5.00); Lymphocytes % (A) 14.8 %; Monocytes # (A) 0.72 X 10*3/uL (0.20-1.00); Monocytes % (A) 9.1 %; NRBC Per 100 WBC 0 /100 WBCS (0.0-0.0); Neutrophils # (A) 5.89 X 10*3/uL (1.80-7.70); Neutrophils % (A) 74.1 %
[2022-03-03 15:51] LABS: HCT 20.5 % (37.2-46.3); HGB 6.3 g/dL (12.0-15.0); MCH 29.2 pg (27.0-32.0); MCHC 30.7 g/dL (32.0-37.0); MCV 94.9 fL (80.0-97.0); Mean Platelet Volume 8.4 fL (9.5-12.2); Platelet Count 293 X 10*3/uL (140-440); RBC 2.16 X 10*6/uL (4.10-5.20); RDW 18.8 % (11.5-14.5); WBC 7.93 X 10*3/uL (4.50-10.00)
[2022-03-03 15:52] LABS: RBC Morphology NORMAL
[2022-03-03 18:27] LABS: Protein, Total 6.7 g/dL (6.2-8.2)
[2022-03-03 20:14] LABS: African American GFR (CKD) 31.5 (60.0-200.0); Albumin 3.2 g/dL (3.8-4.9); Albumin/Globulin Ratio 0.98 (1.60-3.17); Anion Gap 13.4 mmol/L (10.00-18.00); BUN/Creat Ratio 17.12 Ratio (12.00-20.00); Blood Urea Nitrogen 32.7 mg/dL (9.0-27.0); Calcium 9.9 mg/dL (8.7-10.3); Carbon Dioxide 20.1 mmol/L (20.0-27.5); Globulin 3.3 g/dL (1.6-3.3); Non-African American GFR(CKD) 27.2 (60.0-200.0); Potassium 4.3 mmol/L (3.5-5.5); Total Bilirubin 2.5 mg/dL (0.30-1.20); Total Protein 6.5 g/dL (6.2-8.2)
[2022-03-03 23:22] LABS: Cancer Antigen 19-9 56.2 U/mL (0.0-34.9)
[2022-03-04 06:10] LABS: Levetiracetam (Keppra) 20.5 ug/mL (3.0-60.0)
[2022-03-04 08:47] LABS: Lamotrigine (Lamictal) 13.7 ug/mL (2.0-15.0)
== END | disposition home or self-care (01) ==
LOC: LABWHC1 09:07
PROVIDERS: ATTEND Psychiatry & Neurology Neurology
DX: G40.209 Localization-related (focal) (partial) symptomatic epilepsy and epileptic syndromes with complex partial seizures, not intractable, without status epilepticus (principal); R17 Unspecified jaundice
CPT/HCPCS: 36415; 80053; 80175; 80177; 80183; 82105; 83516; 84165; 85025; 86038; 86301

== ENCOUNTER → 2022-05-21 | Outpatient (CLI) | payer MEDICARE, OTHER ==
[2022-05-21 10:59] LABS: Appearance,Urine Clear (Clear); Bilirubin,Urine Negative (Negative); Blood,Urine Moderate (Negative); Color,Urine Light Yellow; Glucose,Urine (UA) Negative (Negative); Ketones,Urine Negative (Negative); Leukocyte Esterase,Urine Negative (Negative); Nitrite,Urine Negative (Negative); Protein,Urine Trace (Negative); RBC,Urine 19 /hpf (0-5); Specific Gravity,Urine 1.008 (1.001-1.035); Squamous Epithelial Cell,Urine <1 /hpf (0-4); Urobilinogen,Urine <2.0 mg/dL (<2.0); WBC,Urine 2 /hpf (0-5)
[2022-05-21 14:39] LABS: Basophils # (A) 0.11 X 10*3/uL (0.00-0.10); Basophils % (A) 1.2 %; Eosinophils % (A) 2.2 %; HCT 29.4 % (37.2-46.3); Immature Grans, Automated 0.5 %; Lymphocytes % (A) 13.1 %; MCH 29.2 pg (27.0-32.0); MCHC 30.6 g/dL (32.0-37.0); MCV 95.5 fL (80.0-97.0); Mean Platelet Volume 8.9 fL (9.5-12.2); Monocytes # (A) 0.71 X 10*3/uL (0.20-1.00); Monocytes % (A) 7.8 %; NRBC Per 100 WBC 0 /100 WBCS (0.0-0.0); Neutrophils # (A) 6.88 X 10*3/uL (1.80-7.70); Neutrophils % (A) 75.2 %; Platelet Count 302 X 10*3/uL (140-440); RBC 3.08 X 10*6/uL (4.10-5.20); RDW 15.4 % (11.5-14.5); WBC 9.15 X 10*3/uL (4.50-10.00)
[2022-05-21 15:37] LABS: % Iron Saturation 9.78 (12.00-45.00); Albumin 3.6 g/dL (3.8-4.9); Albumin/Globulin Ratio 0.85 (1.60-3.17); Anion Gap 9.3 mmol/L (10.00-18.00); BUN/Creat Ratio 16.67 Ratio (12.00-20.00); Blood Urea Nitrogen 22.5 mg/dL (9.0-27.0); Calcium 10.4 mg/dL (8.7-10.3); Carbon Dioxide 22.7 mmol/L (20.0-27.5); Globulin 4.2 g/dL (1.6-3.3); Magnesium 2.2 mg/dL (1.5-2.4); Non-African American GFR(CKD) 41.4 (60.0-200.0); Potassium 5.9 mmol/L (3.5-5.5); Total Bilirubin 0.4 mg/dL (0.30-1.20); Total Protein 7.7 g/dL (6.2-8.2)
[2022-05-21 16:58] LABS: Cardiolipin Ab IgG Interp NEGATIVE (NEGATIVE); Cardiolipin Ab IgM Interp NEGATIVE (NEGATIVE); Cardiolipin IgA Antibody <2.0 U/mL; Cardiolipin IgM Antibody <1.5 U/mL
[2022-05-21 22:51] LABS: Urine Creatinine 32.9 mg/dL (28.0-217.0)
== END | disposition home or self-care (01) ==
LOC: LABWHC1 07:32
PROVIDERS: ATTEND Internal Medicine
DX: N25.81 Secondary hyperparathyroidism of renal origin (principal); N39.0 Urinary tract infection, site not specified; E55.9 Vitamin D deficiency, unspecified; M10.9 Gout, unspecified; N18.32 Chronic kidney disease, stage 3b; D63.1 Anemia in chronic kidney disease; R80.9 Proteinuria, unspecified; R79.9 Abnormal finding of blood chemistry, unspecified
CPT/HCPCS: 36415; 80053; 81001; 82043; 82306; 82570; 82728; 83540; 83550; 83735; 83970; 85025; 86147

== ENCOUNTER → 2022-05-26 | Outpatient (CLI) | payer MEDICARE, OTHER ==
[2022-05-26 10:35] LABS: African American GFR (CKD) 42.6 (60.0-200.0); Albumin 3.7 g/dL (3.8-4.9); Albumin/Globulin Ratio 0.9 (1.60-3.17); Anion Gap 10.5 mmol/L (10.00-18.00); BUN/Creat Ratio 19.19 Ratio (12.00-20.00); Blood Urea Nitrogen 28.6 mg/dL (9.0-27.0); Calcium 10.6 mg/dL (8.7-10.3); Carbon Dioxide 25.1 mmol/L (20.0-27.5); Globulin 4.1 g/dL (1.6-3.3); Non-African American GFR(CKD) 36.7 (60.0-200.0); Total Bilirubin 0.3 mg/dL (0.30-1.20); Total Protein 7.8 g/dL (6.2-8.2)
[2022-05-26 11:32] LABS: Hepatitis B Core IgM Nonreactive (Nonreactive); Hepatitis B Surface Antigen Nonreactive (Nonreactive)
[2022-05-26 11:33] LABS: Hepatitis A Antibody IgM Nonreactive (Nonreactive); Hepatitis C IgG Antibody Nonreactive (Nonreactive)
[2022-05-26 18:19] LABS: DNA Double-Stranded NEGATIVE (NEGATIVE)
== END | disposition home or self-care (01) ==
LOC: LABWHC1 07:43
PROVIDERS: ATTEND Nurse Practitioner Family
DX: N18.32 Chronic kidney disease, stage 3b (principal); R80.9 Proteinuria, unspecified
CPT/HCPCS: 36415; 80053; 80074; 83516; 86038; 86225; 86255; 86334

== ENCOUNTER → 2022-11-25 | Outpatient (CLI) | payer MEDICARE, OTHER ==
[2022-11-26 07:10] LABS: Lamotrigine (Lamictal) 7.2 ug/mL (2.0-15.0)
[2022-11-26 07:25] LABS: Levetiracetam (Keppra) 13.8 ug/mL (3.0-60.0)
== END | disposition home or self-care (01) ==
LOC: LABWHC1 07:53
PROVIDERS: ATTEND Psychiatry & Neurology Neurology
DX: G40.209 Localization-related (focal) (partial) symptomatic epilepsy and epileptic syndromes with complex partial seizures, not intractable, without status epilepticus (principal)
CPT/HCPCS: 36415; 80175; 80177; 80183; 84295

== ENCOUNTER → 2023-06-06 | Outpatient (CLI) | payer MEDICARE, OTHER ==
[2023-06-06 16:09] LABS: % Iron Saturation 47.58 (12.00-45.00); ALT 15 U/L (8-44); AST 15 U/L (13-35); Albumin 3.9 g/dL (3.8-4.9); Albumin/Globulin Ratio 1.44 Ratio (1.60-3.17); Alkaline Phosphatase 155 U/L (41-126); BUN/Creat Ratio 18.06 Ratio (12.00-20.00); Blood Urea Nitrogen 28.9 mg/dL (9.0-27.0); Calcium 10.3 mg/dL (8.7-10.3); Carbon Dioxide 25.5 mmol/L (21.6-31.8); Chloride 107 mmol/L (96-109); Globulin 2.7 g/dL (1.6-3.3); Glucose 78 mg/dL (70-110); Iron 118 UG/DL (50-170); Magnesium 2.1 mg/dL (1.5-2.4); Phosphorus 3.3 mg/dL (2.4-5.1); Potassium 5.3 mmol/L (3.5-5.5); Sodium 142 mmol/L (135-145); Total Bilirubin <0.2 mg/dL (0.3-1.2); Total Iron Binding Capacity 248 UG/DL (228-460); Total Protein 6.6 g/dL (6.2-8.2); Uric Acid 3.9 mg/dL (2.9-7.7)
[2023-06-06 16:15] LABS: Basophils # (A) 0.04 X 10*3/uL (0.00-0.10); Basophils % (A) 0.9 %; Eosinophils # (A) 0.08 X 10*3/uL (0.04-0.35); Eosinophils % (A) 1.7 %; HCT 36.2 % (37.2-46.3); HGB 11.3 g/dL (12.0-15.0); Lymphocytes # (A) 0.92 X 10*3/uL (0.90-5.00); Lymphocytes % (A) 19.8 %; MCH 29.9 pg (27.0-32.0); MCHC 31.2 g/dL (32.0-37.0); MCV 95.8 FL (80.0-97.0); Mean Platelet Volume 9.3 FL (9.5-12.2); Monocytes # (A) 0.45 X 10*3/uL (0.20-1.00); Monocytes % (A) 9.7 %; NRBC Per 100 WBC 0 X 10*3/uL (0.00-0.01); Neutrophils # (A) 3.14 X 10*3/uL (1.80-7.70); Neutrophils % (A) 67.7 %; Platelet Count 157 X 10*3/uL (140-440); RBC 3.78 X 10*6/uL (4.10-5.20); RDW 12.6 % (11.5-14.5); WBC 4.64 X 10*3/uL (4.50-10.00)
[2023-06-06 16:32] LABS: Appearance,Urine Clear (Clear); Bilirubin,Urine Negative (Negative); Blood,Urine Trace (Negative); Color,Urine Yellow (Yellow); Ketones,Urine Negative (Negative); Nitrite,Urine Positive (Negative); PH, Urine 6.5; Specific Gravity,Urine 1.008 (1.001-1.030); Urobilinogen,Urine 0.2 E.U./DL
[2023-06-06 16:38] LABS: Bacteria,Urine 3+ (None Seen)
[2023-06-06 19:29] LABS: Urine Creatinine 37.6 mg/dL (28.0-217.0)
== END | disposition home or self-care (01) ==
LOC: LABWHC1 08:35
PROVIDERS: ATTEND Internal Medicine
DX: N18.32 Chronic kidney disease, stage 3b (principal)
CPT/HCPCS: 36415; 80053; 81001; 82043; 82306; 82570; 82728; 83540; 83550; 83735; 83970; 84100; 84550; 85025

== ENCOUNTER → 2023-10-27 | Outpatient (CLI) | payer MEDICARE, OTHER ==
[2023-10-27 16:19] LABS: Basophils # (A) 0.07 X 10*3/uL (0.00-0.10); Basophils % (A) 1.1 %; HCT 39.6 % (37.2-46.3); HGB 12.2 g/dL (12.0-15.0); Lymphocytes # (A) 1.76 X 10*3/uL (0.90-5.00); Lymphocytes % (A) 26.8 %; MCH 29.8 pg (27.0-32.0); MCHC 30.8 g/dL (32.0-37.0); MCV 96.8 FL (80.0-97.0); Mean Platelet Volume 9.2 FL (9.5-12.2); Monocytes # (A) 0.57 X 10*3/uL (0.20-1.00); Monocytes % (A) 8.7 %; NRBC Per 100 WBC 0 X 10*3/uL (0.00-0.01); Neutrophils # (A) 3.95 X 10*3/uL (1.80-7.70); Neutrophils % (A) 60.2 %; Platelet Count 204 X 10*3/uL (140-440); RBC 4.09 X 10*6/uL (4.10-5.20); RDW 12.5 % (11.5-14.5); WBC 6.56 X 10*3/uL (4.50-10.00)
[2023-10-27 17:31] LABS: ALT 14 U/L (8-44); AST 20 U/L (13-35); Albumin 4.1 g/dL (3.8-4.9); Albumin/Globulin Ratio 1.41 Ratio (1.60-3.17); Alkaline Phosphatase 199 U/L (41-126); BUN/Creat Ratio 21.37 Ratio (12.00-20.00); Blood Urea Nitrogen 40.6 mg/dL (9.0-27.0); Calcium 9.9 mg/dL (8.7-10.3); Chloride 108 mmol/L (96-109); Globulin 2.9 g/dL (1.6-3.3); Glucose 80 mg/dL (70-110); Potassium 5.3 mmol/L (3.5-5.5); Sodium 142 mmol/L (135-145); Total Bilirubin <0.2 mg/dL (0.3-1.2)
[2023-10-28 06:52] LABS: Levetiracetam (Keppra) 20.3 ug/mL (3.0-60.0)
[2023-10-28 13:21] LABS: Lamotrigine (Lamictal) 8.8 ug/mL (2.0-15.0)
== END | disposition home or self-care (01) ==
LOC: LABWHC1 07:28
PROVIDERS: ATTEND Psychiatry & Neurology Neurology
DX: G40.802 Other epilepsy, not intractable, without status epilepticus (principal)
CPT/HCPCS: 36415; 80053; 80175; 80177; 80183; 85025

== ENCOUNTER → 2024-01-27 | Outpatient (CLI) | payer MEDICARE, OTHER ==
--- NOTE | 2024-01-27 17:21 | CA ---
Transthoracic Echo Report Name: Valeria Pride Age: 68 Gender: F : 1955 Exam Date: 01/27/2024 15:10 Exam Location: [facility] Ht (in): 63 Wt (lb): 145 Ordering Physician: Benedicto Giron MD Attending/Referring Phys: Zoila Choe ON LICENSE OF [facility] Administration Physician Yris Camacho RDCS Procedure CPT: Indications: R01.1 cardiac murmur unspec Cardiac Hx: Technical Quality: Fair Contrast 1: Total Dose (mL): Contrast 2: Total Dose (mL): MEASUREMENTS (Male / Female) Normal Values 2D ECHO LV Diastolic Diameter PLAX 3.9 cm 4.2 - 5.9 / 3.9 - 5.3 cm LV Systolic Diameter PLAX 1.7 cm IVS Diastolic Thickness 1.2 cm 0.6 - 1.0 / 0.6 - 0.9 cm LVPW Diastolic Thickness 1.3 cm 0.6 - 1.0 / 0.6 - 0.9 cm LV Relative Wall Thickness 0.6 DOPPLER AV Peak Velocity 125.6 cm/s AV Peak Gradient 6.3 mmHg AV Mean Velocity 93.9 cm/s AV Mean Gradient 3.8 mmHg AV Velocity Time Integral 23.9 cm LVOT Peak Velocity 79.8 cm/s LVOT Peak Gradient 2.5 mmHg LVOT Velocity Time Integral 15.1 cm MV Area PHT 3.1 cm??? Mitral E Point Velocity 54.8 cm/s Mitral A Point Velocity 62.5 cm/s Mitral E to A Ratio 0.9 MV Deceleration Time 246.0 ms MV E' Velocity 4.5 cm/s Mitral E to MV E' Ratio 12.3 FINDINGS Left Ventricle Mildly increased left ventricular wall thickness. Left ventricular cavity size normal. Normal left ventricular systolic function with no obvious regional wall motion abnormalities. Left ventricular ejection fraction is estimated at 50-55 %. Right Ventricle Right ventricle not well visualized. Right ventricular systolic pressure within normal limits. Right Atrium Normal right atrial size. Left Atrium Normal left atrial size. Mitral Valve Structurally normal mitral valve. Mild mitral annular calcification. Mild mitral regurgitation. Aortic Valve No aortic valve stenosis or regurgitation. Tricuspid Valve Structurally normal tricuspid valve. Trace to mild tricuspid regurgitation. Pulmonic Valve Structurally normal pulmonic valve. Pericardium No pericardial effusion. Aorta Normal size aortic root and proximal ascending aorta. CONCLUSIONS Normal LV function Mild mitral regurgitation Previewed by: Dr. Elio Kyle MD (Electronically Signed) Final Date: 27 January 2024 17:20
== END | disposition home or self-care (01) ==
LOC: RADECHMAIN 15:09
PROVIDERS: ATTEND Internal Medicine Geriatric Medicine
DX: R01.1 Cardiac murmur, unspecified (principal); I34.0 Nonrheumatic mitral (valve) insufficiency
CPT/HCPCS: 93306

== ENCOUNTER → 2024-04-24 | Outpatient (CLI) | payer MEDICARE, OTHER ==
[2024-04-24 16:22] VITALS: BP 160/83; PULSE 66; RESP 16; TEMP 98
--- NOTE | 2024-04-24 16:43 | P.SLEEP ---
History of Present Illness H&P Date: 04/24/24 This is a 68-year-old female patient was coming in to be evaluated for sleep apnea. The patient is a very poor historian. In fact, the patient has developmental delay and mental retardation along with history of epilepsy and seizure disorder and she cannot volunteer any significant history or medical information. Information was obtained from the caregiver. She also has history of multidrug-resistant urinary tract infection and she has been hospitalized in the past with bacteremia and sepsis. She has history of hypertension,. According to the caregiver the, the patient has been excessively somnolent and sleepy and she sleeps many hours during the day. She has noted to snore or stop breathing. No nocturnal seizure rhythm with this. She has an [place] score of 12. No grinding of the teeth. She has poor dentures in general. No excessive restlessness of lower extremities. No sleepwalking or sleep talking. No reported nocturnal heartburn or chest pain. She goes to bed at around 8 PM and she wakes up various times in the morning. Unsure if she takes any naps during the day. Otherwise, the history is quite limited based on the patient's intellectual disability and developmental delay. Review of Systems ROS unobtainable: due to mental status Past Medical History Past Medical History: Atrial Fibrillation, Hypertension, Pneumonia, Seizure Disorder Additional Past Medical History / Comment(s): Vertigo, paroxysmal atrial fibrillation, moderate intellectual disability, SEPTEMBER 2016 UTI AND BACTEREMIA History of Any Multi-Drug Resistant Organisms: ESBL, MRSA Date of last positivie culture/infection: 12/12/21 E.coli ESBL; 06/21/18 MRSA MDRO Source:: Urine-ESBL; Groin-MRSA Past Surgical History: No Surgical Hx Reported Additional Past Surgical History / Comment(s): hx picc line-since removed Past Anesthesia/Blood Transfusion Reactions: No Reported Reaction Additional Past Anesthesia/Blood Transfusion Reaction / Comment(s): care information associate says not that she knows of Past Psychological History: Anxiety, Schizoaffective Disorder Additional Psychological History / Comment(s): OCD, auditory hallucinations, needs reassurance that she is ok. depressive type schizoaffective. Single. Has a sister as her guardian. Does have 24-hour care in her apartment. No animals in the apartment. No travel history Smoking Status: Never smoker Past Alcohol Use History: None Reported Additional Past Alcohol Use History / Comment(s): Patient is a lifelong nonsmoker, no illicit drug use, alcohol use. Patient lives in her own apartment at [facility] has a room mate and 24-hour care. There are no pets in the home. No recent travel.has walker, rollator, cane showr chair if needed Past Drug Use History: None Reported - Past Family History Father Family Medical History: Cancer Additional Family Medical History / Comment(s): [place] lymphoma Mother Family Medical History: AFIB, Cancer, Congestive Heart Failure (CHF) Additional Family Medical History / Comment(s): lymphocytic lymphoma Medications and Allergies Home Medications Medication Instructions Recorded Confirmed Type Aspirin 325 mg PO DAILY@0700 02/13/14 06/22/22 History OXcarbazepine [Trileptal] 300 mg PO BID@0700,199902/13/14 06/22/22 History Sertraline [Zoloft] 150 mg PO DAILY@0700 02/13/14 06/22/22 History Ziprasidone [Geodon] 80 mg PO BID@0700,199902/13/14 06/22/22 History lamoTRIgine [LaMICtal] 200 mg PO TID@0700,1400,199902/13/14 06/22/22 History Cranberry Fruit Extract [Cranberry] 500 mg PO BID@0700,199901/19/18 06/22/22 History Docusate [Colace] 100 mg PO DAILY@0700 11/26/18 06/22/22 History Metoprolol Tartrate [Lopressor] 12.5 mg PO BID@0700,199912/12/20 06/22/22 History Ferrous Sulfate [Iron (65 MG 325 mg PO BID@0700,199903/13/21 06/22/22 History Elemental)] levETIRAcetam [Keppra] 500 mg PO HS@199910/21/21 06/22/22 History levETIRAcetam [Keppra] 250 mg PO QAM 12/13/21 06/22/22 History Allergies Allergy/AdvReac Type Severity Reaction Status Date / Time No Known Allergies Allergy Verified 06/22/22 08:26 Physical Exam Vitals: Vital Signs Temp Pulse Resp BP Pulse Ox 04/24/24 16:20 98 F 66 16 160/83 96 Intake and Output 04/24/24 04/24/24 04/24/24 06:59 14:59 22:59 Other: Weight 72.575 kg GENERAL: The patient is alert and oriented x1-2, not in any acute distress. Well developed, well nourished. HEENT: Pupils are round and equally reacting to light. EOMI. No scleral icterus. No conjunctival pallor. Normocephalic, atraumatic. No pharyngeal erythema. No thyromegaly. The patient has poor dentition. Mallampati class IV. Head exam was generally normal. There was no scleral icterus or corneal arcus. Mucous membranes were moist. CARDIOVASCULAR: S1 and S2 present. No murmurs, rubs, or gallops. PULMONARY: Chest is clear to auscultation, no wheezing or crackles. ABDOMEN: Soft, nontender, nondistended, normoactive bowel sounds. No palpable organomegaly. MUSCULOSKELETAL: No joint swelling or deformity. EXTREMITIES: No cyanosis, clubbing, or pedal edema. NEUROLOGICAL: Gross neurological examination did not reveal any focal deficits. SKIN: No rashes. Assessment and Plan Plan: Hypersomnia under investigation. The patient sleeps many hours and her current [place] score is at 12. Exact cause is not clear. She has obvious developmental delay and intellectual deficits/mental retardation along with a history of epilepsy. Possibility of sleep apnea is considered to be less likely. Nocturnal seizure as possible. Also consider possibility of drug- induced hypersomnia. Epilepsy Moderate intellectual disability, stable Paroxysmal atrial fibrillation not on anticoagulation secondary to frequent falls Chronic anemia Hypertension Chronic stage III kidney disease Plan Unfortunately, the history is limited. Nevertheless, based on the caregivers, the patient is excessively somnolent and sleepy. Will do a screening for sonography. Evaluate the patient sleep architecture. Rule out any nocturnal seizures. Rule out any underlying sleep breathing disorder and treat the patient accordingly. The patient will undergo a screening polysomnography at the sleep center will make further recommendations. Keep same medications for now. Sleep Note - Sleep Data ESS Total: 12 - Sleep Note Sleep Note: Temperature: 98 F Pulse Rate: 66 Respiratory Rate: 16 Blood Pressure: 160/83 SpO2: 96 Height: 5 ft 3 in Weight: 72.575 kg BMI: Neck Circumference: 15
== END ==
LOC: 3 N SLEEP 14:55
PROVIDERS: ATTEND Internal Medicine Critical Care Medicine
CPT/HCPCS: 99211

== ENCOUNTER 2024-05-09 19:39 | Outpatient (CLI) | payer MEDICARE, OTHER ==
--- NOTE | 2024-05-15 13:25 | P.PCN ---
Date of Procedure: 05/09/24 Operative Findings: Polysomnography report Date of service 05/09/2024 History This is a 68-year-old female patient was coming in to be evaluated for sleep apnea. The patient is a very poor historian. In fact, the patient has developmental delay and mental retardation along with history of epilepsy and seizure disorder and she cannot volunteer any significant history or medical information. Information was obtained from the caregiver. She also has history of multidrug-resistant urinary tract infection and she has been hospitalized in the past with bacteremia and sepsis. She has history of hypertension,. According to the caregiver the, the patient has been excessively somnolent and sleepy and she sleeps many hours during the day. She has noted to snore or stop breathing. No nocturnal seizure rhythm with this. She has an [place] score of 12. No grinding of the teeth. She has poor dentures in general. No excessive restlessness of lower extremities. No sleepwalking or sleep talking. No reported nocturnal heartburn or chest pain. She goes to bed at around 8 PM and she wakes up various times in the morning. Unsure if she takes any naps during the day. Otherwise, the history is quite limited based on the patient's intellectual disability and developmental delay. Physical findings Weight is 160 pounds with a BMI of 28.3 Technical description The patient was studied using a standard complex polysomnography protocol that included recording of the Lead II EKG, Central, occipital and frontal EEG, right and left outer canthus EOG, submental EMG, right and left anterior tibialis EMG, respiratory airflow by thermocouple and or pressure/flow transducer, respiratory efforts by abdominal and thoracic PVDF belts, oxygen saturation by cable oximetry. Position by observation synchronized the PSG. Equipment used: Moblication. Sleep architecture The total recording duration was 470.5 minutes. Total sleep time was 4 7.5 minutes. The wake after sleep onset time was 48.5 minutes. The overall sleep efficiency was 86.6%. The latency to sleep onset was 10 minutes. The sleep architecture was characterized by 1.3% stage I, 85.8% stage II, 0% stage III and 12.9% REM sleep. The total arousal index was 18.0 Sleep continuity summary The patient had a total of 122 arousals with an index of 18.0. The respiratory arousal index was 0.9 Periodic limb movements None Cardiac summary Average heart rate was 58 with a minimum heart rate of 52 and a maximum heart rate of 63 Respiratory analysis The respiratory analysis demonstrated total of 38 obstructive events of which 0 were obstructive apneas, 0 were mixed apneas and severe obstructive hypopneas. The resulting AHI was 4.1. The obstructive hypopneas were more predominant during REM sleep. Oxygenation analysis The baseline pulse ox was 97% while awake. Lowest oxygen saturation was 87% and the patient spent approximately 57 minutes of the sleep time below pulse ox of 89%. Minimum pulse ox during REM sleep was 87%. Assessment No evidence of any significant sleep breathing disorder. The patient's AHI was 4.6. Mild nocturnal oxygen desaturations Hypersomnia under investigation. The patient sleeps many hours and her current [place] score is at 12. Exact cause is not clear. She has obvious devel opmental delay and intellectual deficits/mental retardation along with a history of epilepsy. Based on her current sleep study, there is no evidence of any sleep breathing disorder or nocturnal seizures. Consider f drug-induced hypersomnia. Epilepsy Moderate intellectual disability, stable Paroxysmal atrial fibrillation not on anticoagulation secondary to frequent falls Chronic anemia Hypertension Chronic stage III kidney disease Plan No need for CPAP therapy, negative study for sleep apnea No evidence of any nocturnal seizures History of drug-induced hypersomnia Regular sleep schedule maintain good sleep hygiene measures No need for stimulant therapy Refer this patient back to primary care
== END 2024-05-10 06:00 | disposition home or self-care (01) ==
LOC: 3 N SLEEP 19:39
PROVIDERS: ATTEND Internal Medicine Critical Care Medicine
DX: G47.33 Obstructive sleep apnea (adult) (pediatric) (principal); G47.36 Sleep related hypoventilation in conditions classified elsewhere; G47.10 Hypersomnia, unspecified; G40.909 Epilepsy, unspecified, not intractable, without status epilepticus; F71 Moderate intellectual disabilities; I48.0 Paroxysmal atrial fibrillation; D64.9 Anemia, unspecified; I12.9 Hypertensive chronic kidney disease with stage 1 through stage 4 chronic kidney disease, or unspecified chronic kidney disease; N18.30 Chronic kidney disease, stage 3 unspecified; R29.6 Repeated falls; Z79.899 Other long term (current) drug therapy
CPT/HCPCS: 95810

== ENCOUNTER → 2024-10-01 | Outpatient (CLI) | payer MEDICARE, OTHER ==
[2024-10-02 04:29] LABS: Levetiracetam (Keppra) 19.7 ug/mL (3.0-60.0)
[2024-10-02 10:23] LABS: Lamotrigine (Lamictal) 8.5 ug/mL (2.0-15.0)
== END | disposition home or self-care (01) ==
LOC: LABWHC1 07:43
PROVIDERS: ATTEND Psychiatry & Neurology Neurology
DX: G40.802 Other epilepsy, not intractable, without status epilepticus (principal)
CPT/HCPCS: 36415; 80175; 80177; 80183; 84295